=== PATIENT | female | born 1950 | race Caucasian/White ===

== ENCOUNTER → 2025-03-30 | Outpatient (CLI) | payer MEDICARE, OTHER, SELFPAY ==
--- NOTE | 2025-03-30 11:34 | MRI_ITS ---
PROCEDURE: SPINE LUMBAR (ROUTINE) 03/30/2025 REASON FOR EXAM: CHRONIC PAIN TECHNIQUE: SPINE LUMBAR (ROUTINE) COMPARISON: Lumbar spine x-ray 02/25/2025. FINDINGS: Vertebrae: Status post laminectomies and posterior fusion L1 L2, L3 and L4. S/p spacer placement at L3-L4. Alignment: Normal. Conus Medullaris: Unremarkable. Disc levels: Disc desiccation and disc bulge at T11-T12 and T12-L1 with mild bilateral foramina stenosis and mild canal stenosis.. Sacrum: Unremarkable. MRI/Spine Lumbar (Routine) IMPRESSION: Status post laminectomies and posterior fusion L1, L2, L3 and L4. S/p spacer p lacement at L3-L4. Mild canal stenosis at T11-T12 and T12-L1. Otherwise, no significant foraminal or canal stenosis. Reading Location: [id number]
--- NOTE | 2025-03-30 11:34 | MRI_ITS ---
PROCEDURE: SPINE LUMBAR (ROUTINE) 03/30/2025 REASON FOR EXAM: CHRONIC PAIN TECHNIQUE: SPINE LUMBAR (ROUTINE) COMPARISON: Lumbar spine x-ray 02/25/2025. FINDINGS: Vertebrae: Status post laminectomies and posterior fusion L1 L2, L3 and L4. S/p spacer placement at L3-L4. Alignment: Normal. Conus Medullaris: Unremarkable. Disc levels: Disc desiccation and disc bulge at T11-T12 and T12-L1 with mild bilateral foramina stenosis and mild canal stenosis.. Sacrum: Unremarkable. MRI/Spine Lumbar (Routine) IMPRESSION: Status post laminectomies and posterior fusion L1, L2, L3 and L4. S/p spacer p lacement at L3-L4. Mild canal stenosis at T11-T12 and T12-L1. Otherwise, no significant foraminal or canal stenosis. Reading Location: [id number]
--- OUTSIDE RECORDS SUMMARY | 2025-03-30 18:41 | XMS RPT_ITS | CCD ---
Author Organization [facility] Care Team Providers Care Neonatal Nurse Practitioner Name Role Phone JORI DEWITT Attending Unavailable RENATE JORI Trini Primary Care Unavailable RENATEJORI Admitting Unavailable RENATEJORI CHIRINOS Attending Unavailable RENATE JORI Trini Primary Care Unavailable RENATE JORI E Admitting Unavailable Unavailable Primary Care Provider Unavailgisel ANN DO, DR MARIN Primary Care Physician Julia Busby Unavailable Unavailable Katrin Barba Unavailable Unavailable Laura Claudio Unavailable Unavailable Luda Ann DO Primary Care Provider Luda Ann DO Primary Care Provider Luda Ann DO Primary Care Provider Marissa GALAN, Luda Jovel Primary Care Provider Marissa GALAN, Luda Jovel Primary Care Provider BETZAIDA GALAN, DR GARRISON Attending Unavailable MARISSA GALAN, DR MARIN Primary Care Unavailable BETZAIDA GALAN, DR GARRISON Attending Unavailable MARISSA GALAN, DR MARIN Primary Care Unavailable BETZAIDA GALAN, DR GARRISON Attending Unavailable MARISSA GALAN, DR MARIN Primary Care Unavailable EVERETT MCCULLOUGH MD Attending Unavailable MARISSA GALAN, DR MARIN Primary Care Unavailable MARISSA GALAN, DR MARIN Attending Unavailable MARISSA GALAN, DR MARIN Primary Care Unavailable MARISSA GALAN, DR MARIN Admitting Unavailable EVERETT MCCULLOUGH MD Attending Unavailable MARISSA GALAN, DR MARIN Primary Care Unavailable EVERETT MCCULLOUGH MD Attending Unavailable MARISSA GALAN, DR MARIN Primary Care Unavailable MARISSA GALAN, DR MARIN Primary Care Unavailable JUDY SALDANA, ANKITA Attending Unavailable PROVIDER, UNKNOWN Admitting Unavailable PROVIDER, UNKNOWN Attending Unavailable LUDA ANN Primary Care Unavailable SCOTT VALERO Referring Unavailable MARISSA, LUDA L Primary Care Unavailable MAYNOR ROBLES Attending Unavailable MARISSA, LUDA L Primary Care Unavailable VALERO, SCOTT Referring Unavailable MARISSA, LUDA L Primary Care Unavailable VALERO, SCOTT Referring Unavailable MARISSA, LUDA L Primary Care Unavailable VALERO, SCOTT Referring Unavailable MARISSA, LUDA L Primary Care Unavailable VALERO, SCOTT Referring Unavailable MARISSA, LUDA L Primary Care Unavailable VALERO, SCOTT Referring Unavailable MARISSA, LUDA L Primary Care Unavailable VALERO, SCOTT Referring Unavailable MARISSA, LUDA L Primary Care Unavailable VALERO, SCOTT Referring Unavailable MARISSA, LUDA L Primary Care Unavailable SURMITMAHAMED TRUJILLO Referring Unavail able MARISSA, LUDA L Primary Care Unavailable JITENDRAMITMAHAMED TRUJILLO Attending Unavail able MARISSA, LUDA L Primary Care Unavailable VALERO, SCOTT Referring Unavailable MARISSA, LUDA L Primary Care Unavailable VALERO, SCOTT Referring Unavailable MARISSA, LUDA L Primary Care Unavailable VALERO, SCOTT Referring Unavailable MARISSA, LUDA L Primary Care Unavailable VALERO, SCOTT Referring Unavailable MARISSA, LUDA L Primary Care Unavailable MAYA GOEL Attending Unavailable VALERO, SCOTT Referring Unavailable MARISSA, LUDA L Primary Care Unavailable VALERO, CSOTT Referring Unavailable MARISSA, LUDA L Primary Care Unavailable FATOUMATA LYN Referring Unavailable MARISSA, LUDA L Primary Care Unavailable SURMITMAHAMED TRUJILLO Referring Unavail able MARISSA, LUDA L Primary Care Unavailable VALERO, SCOTT Referring Unavailable MARISSA, LUDA L Primary Care Unavailable KARY CHASE Referring Unavailab le MARISSA, LUDA L Primary Care Unavailable VALERO, SCOTT Referring Unavailable MARISSA, LUDA L Primary Care Unavailable VALERO, SCOTT Referring Unavailable MARISSA, LUDA L Primary Care Unavailable Gian ELENA, Dr. Manzano Attending Provider [phone] Dr. Rodriguez Coleman MD Attending Provider Rodriguez Coleman Attending Unavailable Jose Juan Springer Attending Unavailable Marissa, Luda Primary Care Unavailable Jose Juan Springer Referring Unavailable Jose Juan Springer Attending Unavailable Medications Current Medications Medication Drug Class(es) Dates Sig (Normalized) Sig (Original) Pain Pump (Informational Use Only-Patient Has Morphine Pump) prefilled pump reservoir (2 sources) Start: 02-25-2025 Pain Pump (Informational Use Only-Patient Has Morphine Pump) prefilled pump reservoir Active 0 .ROUTE February 25, 2025 12:00am As directed acetaminophen 500 mg oral capsule (20 sources) take 2 capsules by mouth every twelve hours as needed Acetaminophen 500 mg cap Take 1,000 mg by mouth two times a day as needed. Active Comment on above: Take 1,000 mg by jesus th two times a day as needed. acetaminophen 300 mg / butalbital 50 mg / caffeine 40 mg oral capsule (2 sources) Barbiturate, Central Nervous System Stimulant, Methylxanthine Start: 09-07-2022 End: 09-14-2022 take 1 capsule by mouth every four hours as needed acetaminophen 300 mg-caffeine 40 mg-butalbital 50 mg (FIORICET) per capsule Take 1 capsule by mouth every 4 hours as needed for up to 7 days. 28 capsule 0 09/07/2022 09/14/2022 Active Comment on above: Take 1 capsule by mo [facility] every 4 hours as needed for up to 7 days. acetaminophen 325 mg / HYDROcodone bitartrate 7.5 mg oral tablet (2 sources) Opioid Agonist Start: 09-14-2021 take 1 tablet by mouth three times daily as needed for pain acetaminophen-hydr ocodone 325 mg-7.5 mg oral tablet TAKE 1 TABLET BY MOUTH THREE TIMES DAILY NEEDED FOR PAIN Start Date: 09/14/21 Status: Ordered ascorbic acid 500 mg oral capsule (20 sources) Vitamin C Start: 02-25-2025 Ascorbic Acid (Vitamin C) 500 mg capsule Active mg PO February 25, 2025 12:00am take 1 tablet by mouth once jayne y ascorbic acid, vitamin C, (VITAMIN C) 500 mg tablet Take 500 mg by mouth once daily. Active Comment on above: Take 500 mg by mouth once daily. aspirin 81 mg oral tablet (20 sources) Platelet Aggregation Inhibitor, Nonsteroidal Anti-inflammatory Drug Start: 02-25-2025 take 1 tablet by mouth once daily Aspirin 81 mg tablet Active 81 mg PO daily February 25, 2025 12:00am Start: 11-21-2015 take 1 tablet by jesus th once daily in the morning aspirin, enteric coated (ASPIRIN, ENTERIC COATED) 81 mg EC tablet Take 81 mg by mouth every morning. IS GOING TO CHECK WITH SURGEON AND PCP ABOUT WHEN NEEDS TO STOP ASA 11/21/2015 Active Comment on above: ASPIR-81 TABLET KAMRYN YED RELEASE Take 81 mg by mouth every morning. IS GOING TO CHECK WITH SURGEON AND PCP ABOUT WHEN NEEDS TO STOP ASA brimonidine tartrate 2 mg/ml ophthalmic solution (20 sources) alpha-Adrenergic Agonist Start: 02-25-2025 Brimonidine 0.2 % drops Active 1 NMA OPHTHALMIC TWICE A DAY February 25, 2025 12:00am Start: 02-14-2022 take 1 drop(s) into the eye(s) twice daily brimonidine (ALPHAGAN) 0.2 % ophthalmic solution Use 1 Drop in the left eye twice daily. GLAUCOMA 02/14/2022 Active Start: 02-14-2022 take 1 drop(s) into the eye(s) twice daily brimonidine (ALPHAGAN) 0.2 % ophthalmic solution Use 1 Drop in the left eye twice daily. GLAUCOMA 0 02/14/2022 Active Start: 02-14-2022 brimonidine (A LPHAGAN) 0.2 % ophthalmic solution Start: 09-14-2021 Alphagan 0.2% ophthalmic solution 0 Refill(s) Start Date: 09/14/21 Status: Ordered Start: 09-14-2021 Alphagan 0.2% ophthalmic solution 0 Refill(s) Start Date: 09/14/21 Status: Ordered Comment on above: Use 1 Drop in the le ft eye twice daily. GLAUCOMA calcium carbonate 1500 mg oral tablet (20 sources) calcium carbonat e (CALTRATE) 600 mg calcium (1,500 mg) tab Take by mouth every 24 hours. Active Comment on above: Take by mouth every 24 hours. cephalexin 500 mg oral capsule (2 sources) Cephalosporin Antibacterial Start: End: 023 take 1 capsule by mouth twice daily cephALEXin (KEFLEX) 500 mg capsule Take 1 capsule by mouth twice daily for 5 days. 10 capsule 0 09/28/2022 10/03/2022 Active Comment on above: Take 1 capsule by [facility] twice daily for 5 days. cholecalciferol 0.125 mg oral tablet (20 sources) Vitamin D cholecalciferol (VITAMIN D3) 5,000 unit tab Take 2,000 Units by mouth once daily. Last dose 09/26/22 Active Comment on above: Take 2,000 Units by mouth once daily. Take 2,000 Units by mouth once daily. Last dose 09/26/22 cyclobenzaprine hydrochloride 10 mg oral tablet (20 sources) Muscle Relaxant Start: 022 take 1 tablet by mouth every eight hours as needed cyclobenzaprine (FLEXERIL) 10 mg tablet Take 10 mg by mouth three times daily as needed for muscle spasm. 09/14/2021 Active Comment on above: mg = tab(s), Oral, TID, 0 Refill(s) Take 10 mg by mouth three times daily as needed for muscle spasm. dorzolamide 20 mg/ml / timolol 5 mg/ml ophthalmic solution (20 sources) Carbonic Anhydrase Inhibitor, beta-Adrenergic Karuna Start: 023 take 1 drop(s) into the eye(s) twice daily dorzolamide-timolol (COSOPT) 22.3-6.8 mg/mL ophthalmic solution INSTILL 1 DROP IN LEFT EYE TWICE DAILY 02/22/2023 Active Comment on above: INSTILL 1 DROP IN LE FT EYE TWICE DAILY DULoxetine 60 mg delayed release oral capsule (2 sources) Serotonin and Norepinephrine Reuptake Inhibitor Start: 025 take 1 capsule by mouth once daily Duloxetine 60 mg capsule,delayed release(DR/EC) Active 60 mg PO daily February 25, 2025 12:00am famotidine 20 mg oral tablet (20 sources) Histamine-2 Receptor Antagonist Start: 025 take 2 tablets by mouth at bedtime Famotidine 20 mg tablet Active 40 mg PO AT BEDTIME February 25, 2025 12:00am Start: 05-14-2023 take 1 tablet by jesus once daily at bedtime famotidine (PEPCID) 20 mg tablet Take 20 mg by mouth daily at bedtime. 05/14/2023 Active Comment on above: Take 20 mg by mouth daily at bedtime. ferrous sulfate 325 mg oral tablet (20 sources) Start: 02-25-2025 take 1 tablet by mouth once daily Ferrous Sulfate (Ferosul) 325 mg (65 mg iron) tablet Active 325 mg PO daily February 25, 2025 12:00am ferrous sulfate (IRON) 325 mg (65 mg iron) tablet Take 325 mg by mouth. Active Comment on above: Take 325 mg by mouth . folic acid 1 mg oral tablet (20 sources) Start: 02-25-2025 take 1 tablet by mouth once daily Folic Acid 1 mg tablet Active 1 mg PO daily February 25, 2025 12:00am Start: 11-21-2015 take 1 tablet by jesus th once daily in the morning folic acid 800 mcg tablet Take 800 mcg by mouth every morning. FROM PCP BLOOD NOT CLOT NORMAL PERSON 11/21/2015 Active Comment on above: folic acid 800 mcg t ablet Take 800 mcg by mout h every morning. FROM PCP BLOOD NOT CLOT NORMAL PERSON gabapentin 800 mg oral tablet (20 sources) Anti-epileptic Agent Start: 02-25-2025 take 1 tablet by mouth three times daily Gabapentin 800 mg tablet Active 800 mg PO THREE TIMES A DAY February 25, 2025 12:00am Start: 10-29-2023 End: 02-26-2024 take 1 tablet by mouth three times daily gabapentin (NEURONTIN) 800 mg tablet Indications: Lumbar radiculopathy Take 1 tablet by mouth three times a day for 120 days. 90 tablet 3 10/29/2023 Active Start: 11-21-2015 End: 10-06-2023 gabapentin (NEURONTIN) 300 m g capsule Indications: Lumbar postlaminectomy syndrome Take 1 capsule by mouth as directed for 20 days. Follow titration schedule received and reviewed at office visit. Please call our office for further refills pending outcome of titration 120 capsule 0 09/16/2023 Active Comment on above: TAKE 1 CAPSULE BY MOUTH THREE TIMES DAILY Take 1 capsule by mo [facility] as directed for 20 days. Follow titration schedule received and reviewed at office visit. Please call our office for further refills pending outcome of titration Take 1 tablet by jesus th three times a day for 120 days. hydroCHLOROthiazide 25 mg / lisinopril 20 mg oral tablet (20 sources) Thiazide Diuretic, Angiotensin Converting Enzyme Inhibitor Start: 02-25-2025 Lisinopril-Hydroc hlorothiazide 20-25 mg tablet Active 1 {tbl} PO daily February 25, 2025 12:00am Start: 09-14-2021 take 1 tablet by jesus th once daily in the morning lisinopril-hydroCHLOROthiazide (PRINZIDE , ZESTORETIC) 20-25 mg per tablet Take 1 tablet by mouth every morning. 02/13/2022 Active Comment on above: Take 1 tablet by jesus th once daily. Take 1 tablet by jesus th every morning. Lactobac no.41/Bifidobact no.7 (PROBIOTIC-10 ORAL) (20 sources) take 1 tablet by mouth once daily in the morning Lactobac no.41/Bifidobact no.7 (PROBIOTIC-10 ORAL) Take 1 tablet by mouth every morning. Active take 1 tablet by jesus th once daily in the morning Lactobac no.41/Bifidobact no.7 (PROBIOTI C-10 ORAL) Take 1 tablet by mouth every morning. 0 Active Comment on above: Take 1 tablet by jesus th every morning. latanoprost 0.05 mg/ml ophthalmic solution (20 sources) Prostaglandin Analog Start: 02-25-2025 Latanoprost 0.005 % drops Active 1 NMA OPHTHALMIC EVERY EVENING February 25, 2025 12:00am Start: 02-14-2022 take 1 drop(s) into the eye(s) once daily at bedtime latanoprost (XALATAN) 0.005 % ophthalmic solution Use 1 Drop in both eyes daily at bedtime. 02/14/2022 Active Start: 02-14-2022 take 1 drop(s) into the eye(s) once daily at bedtime latanoprost (XALATAN) 0.005 % ophthalmic solution Use 1 Drop in both eyes daily at bedtime. 0 02/14/2022 Active Start: 02-14-2022 take 1 drop(s) into the eye(s) at bedtime latanoprost (XALATAN) 0.005 % ophthalmic solution INSTILL 1 DROP IN BOTH EYES AT BEDTIME 0 02/14/2022 Active Comment on above: INSTILL 1 DROP IN JEANNIE TH EYES AT BEDTIME Use 1 Drop in both e yes daily at bedtime. lidocaine 25 mg/ml / prilocaine 25 mg/ml topical cream (20 sources) Antiarrhythmic, Amide Local Anesthetic Start: 02-25-2025 Lidocaine-Prilocaine 2.5-2.5 % cream Active 1 - 2 TOPICAL THREE TIMES A DAY as needed February 25, 2025 12:00am Start: 06-27-2023 End: 07-27-2023 lidocaine-prilocaine (EMLA) 2.5-2.5 % cream Apply to affected area as needed. 1-2 grams to affected area TID PRN 30 g 3 06/27/2023 Active Start: 06-13-2022 End: 07-13-2022 lidocaine-prilocaine (EMLA) 2.5-2.5 % cream Apply to affected area as needed. 1-2 grams to affected area TID PRN 30 g 1 06/13/2022 Active Start: 09-14-2021 lidocaine-pril ocaine 2.5%-2.5% topical cream APPLY 1 TO 2 GRAMS TO AFFECTED AREA THREE TIMES DAILY NEEDED FOR PAIN Start Date: 09/14/21 Status: Ordered Start: 09-14-2021 lidocaine-pril ocaine 2.5%-2.5% topical cream APPLY 1 TO 2 GRAMS TO AFFECTED AREA THREE TIMES DAILY NEEDED FOR PAIN Start Date: 09/14/21 Status: Ordered Comment on above: Apply to affected ar ea as needed. 1-2 grams to affected area TID PRN morphine (PF) 5 mg/mL in NaCl 0.9% 20 mL (20 sources) Start: 01-22-2024 morphine (PF) 5 mg/mL in NaCl 0.9% 20 mL Indications: Lumbar postlaminectomy syndrome PF MORPHINE 5 MG/ML SIMPLE CONTINUOUS RATE 0.8636 mg/ day PTM 0.0799 mg every 4 hours (max 6 doses per day) Total daily dose 1.3397mg 20 mL 01/22/2024 Active Start: 01-22-2024 morphine (PF) 5 mg/mL in NaCl 0.9% 20 mL Indications: Lumbar postlaminectomy syndrome PF MORPHINE 5 MG/ML SIMPLE CONTINUOUS RATE 0.8636 mg/ day PTM 0.0799 mg every 4 hours (max 6 doses per day) Total daily dose 1.3397mg 20 mL 0 01/22/2024 Active Start: 11-25-2023 End: 01-22-2024 morphine (PF) 5 mg/mL in NaC l 0.9% 20 mL Indications: Lumbar postlaminectomy syndrome PF MORPHINE 5 MG/ML SIMPLE CONTINUOUS RATE 0.8636 mg/ day PTM 0.0799 mg every 4 hours (max 6 doses per day) Total daily dose 1.3397mg 20 mL 0 11/25/2023 01/22/2024 Discontinued Start: 11-25-2023 morphine (PF) 5 mg/mL in NaCl 0.9% 20 mL Indications: Lumbar postlaminectomy syndrome PF MORPHINE 5 MG/ML SIMPLE CONTINUOUS RATE 0.8636 mg/ day PTM 0.0799 mg every 4 hours (max 6 doses per day) Total daily dose 1.3397mg 20 mL 0 11/25/2023 Active Start: 11-19-2023 End: 11-25-2023 morphine (PF) 5 mg/mL in NaC l 0.9% 20 mL Indications: Lumbar postlaminectomy syndrome PF MORPHINE 5 MG/ML SIMPLE CONTINUOUS RATE 0.8636 mg/ day PTM 0.0799 mg every 4 hours (max 6 doses per day) Total daily dose 1.3397mg 20 mL 0 11/19/2023 11/25/2023 Discontinued Start: 11-19-2023 morphine (PF) 5 mg/mL in NaCl 0.9% 20 mL Indications: Lumbar postlaminectomy syndrome PF MORPHINE 5 MG/ML SIMPLE CONTINUOUS RATE 0.8636 mg/ day PTM 0.0799 mg every 4 hours (max 6 doses per day) Total daily dose 1.3397mg 20 mL 0 11/19/2023 Active Start: 09-26-2023 End: 11-19-2023 morphine (PF) 5 mg/mL in NaC l 0.9% 20 mL Indications: Lumbar postlaminectomy syndrome PF MORPHINE 5 MG/ML SIMPLE CONTINUOUS RATE 0.8636 mg/ day PTM 0.0799 mg every 4 hours (max 6 doses per day) Total daily dose 1.3397mg 20 mL 0 09/26/2023 11/19/2023 Discontinued Start: 09-26-2023 morphine (PF) 5 mg/mL in NaCl 0.9% 20 mL Indications: Lumbar postlaminectomy syndrome PF MORPHINE 5 MG/ML SIMPLE CONTINUOUS RATE 0.8636 mg/ day PTM 0.0799 mg every 4 hours (max 6 doses per day) Total daily dose 1.3397mg 20 mL 0 09/26/2023 Active Start: 07-23-2023 End: 09-26-2023 morphine (PF) 5 mg/mL in NaC l 0.9% 20 mL Indications: Lumbar postlaminectomy syndrome PF MORPHINE 5 MG/ML SIMPLE CONTINUOUS RATE 0.864 mg/ day PTM 0.0799 mg every 4 hours (max 6 doses per day) Total daily dose 1.3397mg 20 mL 0 07/23/2023 09/26/2023 Discontinued Start: 05-30-2023 morphine (PF) 5 mg/mL in NaCl 0.9% 20 mL Indications: Lumbar postlaminectomy syndrome PF MORPHINE 5 MG/ML SIMPLE CONTINUOUS RATE 0.864 mg/ day PTM 0.0799 mg every 4 hours (max 6 doses per day) Total daily dose 1.3397mg 20 mL 0 05/30/2023 Active Start: 03-27-2023 morphine (PF) 5 mg/mL in NaCl 0.9% 20 mL Indications: Lumbar postlaminectomy syndrome PF MORPHINE 5 MG/ML SIMPLE CONTINUOUS RATE 0.864 mg/ day PTM 0.0799 mg every 4 hours (max 6 doses per day) Total daily dose 1.3397mg 20 mL 0 03/27/2023 Active Start: 01-28-2023 End: 03-26-2023 morphine (PF) 5 mg/mL in NaC l 0.9% 20 mL Indications: Lumbar postlaminectomy syndrome PF MORPHINE 5 MG/ML SIMPLE CONTINUOUS RATE 0.864 mg/ day PTM 0.0799 mg every 4 hours (max 6 doses per day) Total daily dose 1.3397mg 20 mL 0 01/28/2023 03/26/2023 Discontinued Start: 01-28-2023 morphine (PF) 5 mg/mL in NaCl 0.9% 20 mL Indications: Lumbar postlaminectomy syndrome PF MORPHINE 5 MG/ML SIMPLE CONTINUOUS RATE 0.864 mg/ day PTM 0.0799 mg every 4 hours (max 6 doses per day) Total daily dose 1.3397mg 20 mL 0 01/28/2023 Active Start: 12-04-2022 End: 01-23-2023 morphine (PF) 5 mg/mL in NaC l 0.9% 20 mL Indications: Lumbar postlaminectomy syndrome PF MORPHINE 5 MG/ML ( INCREASE DOSE) SIMPLE CONTINUOUS RATE 0.864 mg/ day PTM 0.07 mg every 4 hours (max 6 doses per day) Total daily dose 1.284mg 20 mL 0 12/04/2022 01/23/2023 Discontinued Start: 12-04-2022 morphine (PF) 5 mg/mL in NaCl 0.9% 20 mL Indications: Lumbar postlaminectomy syndrome PF MORPHINE 5 MG/ML ( INCREASE DOSE) SIMPLE CONTINUOUS RATE 0.864 mg/ day PTM 0.07 mg every 4 hours (max 6 doses per day) Total daily dose 1.284mg 20 mL 0 12/04/2022 Active Start: 11-21-2022 End: 12-04-2022 morphine (PF) 5 mg/mL in NaC l 0.9% 20 mL Indications: Lumbar postlaminectomy syndrome PF MORPHINE 5 MG/ML SIMPLE CONTINUOUS RATE 0.7201 mg/ day Activate PTM 0.05 mg every 4 hours (max 6 doses per day) Total daily dose 1.0169mg 20 mL 0 11/21/2022 12/04/2022 Discontinued Start: 11-21-2022 morphine (PF) 5 mg/mL in NaCl 0.9% 20 mL Indications: Lumbar postlaminectomy syndrome PF MORPHINE 5 MG/ML SIMPLE CONTINUOUS RATE 0.7201 mg/ day Activate PTM 0.05 mg every 4 hours (max 6 doses per day) Total daily dose 1.0169mg 20 mL 0 11/21/2022 Active Start: 10-10-2022 End: 11-20-2022 morphine (PF) 5 mg/mL in NaC l 0.9% 20 mL Indications: Lumbar postlaminectomy syndrome PF MORPHINE 5 MG/ML SIMPLE CONTINUOUS RATE 0.03 MG/HOUR Activate PTM 0.05 mg every 4 hours (max 6 doses per day) Patient to establish care with [facility] 20 mL 0 10/10/2022 11/20/2022 Discontinued Start: 10-10-2022 morphine (PF) 5 mg/mL in NaCl 0.9% 20 mL Indications: Lumbar postlaminectomy syndrome PF MORPHINE 5 MG/ML SIMPLE CONTINUOUS RATE 0.03 MG/HOUR Activate PTM 0.05 mg every 4 hours (max 6 doses per day) Patient to establish care with [facility] 20 mL 0 10/10/2022 Active Start: 09-25-2022 End: 10-10-2022 morphine (PF) 5 mg/mL in NaC l 0.9% 20 mL Indications: Lumbar postlaminectomy syndrome PF MORPHINE 5 MG/ML SIMPLE CONTINUOUS RATE 0.03 MG/HOUR AugmedixMED II MEDTRONIC INTRATHECAL PUMP WITH PERSONAL FIRST SAMPLER 20 mL 0 09/25/2022 10/10/2022 Discontinued Start: 09-25-2022 morphine (PF) 5 mg/mL in NaCl 0.9% 20 mL Indications: Lumbar postlaminectomy syndrome PF MORPHINE 5 MG/ML SIMPLE CONTINUOUS RATE 0.03 MG/HOUR SYNCHROMED II MEDTRONIC INTRATHECAL PUMP WITH PERSONAL FIRST SAMPLER 20 mL 0 09/25/2022 Active Comment on above: PF MORPHINE 5 MG/ML SIMPLE CONTINUOUS RATE 0.03 MG/HOUR SYNCHROMED II MEDTRONIC INTRATHECAL PUMP WITH PERSONAL FIRST SAMPLER PF MORPHINE 5 MG/ML SIMPLE CONTINUOUS RATE 0.03 MG/HOUR Activate PTM 0.05 mg every 4 hours (max 6 doses per day) Patient to establish care with [facility] nursing services PF MORPHINE 5 MG/ML SIMPLE CONTINUOUS RATE 0.7201 mg/ day Activate PTM 0.05 mg every 4 hours (max 6 doses per day) Total daily dose 1.0169mg PF MORPHINE 5 MG/ML ( INCREASE DOSE) SIMPLE CONTINUOUS RATE 0.864 mg/ day PTM 0.07 mg every 4 hours (max 6 doses per day) Total daily dose 1.284mg PF MORPHINE 5 MG/ML SIMPLE CONTINUOUS RATE 0.864 mg/ day PTM 0.0799 mg every 4 hours (max 6 doses per day) Total daily dose 1.3397mg PF MORPHINE 5 MG/ML SIMPLE CONTINUOUS RATE 0.8636 mg/ day PTM 0.0799 mg every 4 hours (max 6 doses per day) Total daily dose 1.3397mg multivit with minerals/lutein (MULTIVITAMIN 50 PLUS ORAL) (20 sources) Start: 11-21-2015 multivit with minerals/lutein (MULTIVITAMIN 50 PLUS ORAL) Last dose 09/26/22 11/21/2015 Active Start: 11-21-2015 multivit with minerals/lutein (MULTIVITAMIN 50 PLUS ORAL) Last dose 09/26/22 0 11/21/2015 Active Start: 11-21-2015 multivit with minerals/lutein (MULTIVITAMIN 50 PLUS ORAL) SENIOR MULTIVITAMIN PLUS ORAL TABLET 0 11/21/2015 Suspended Start: 11-21-2015 multivit with minerals/lutein (MULTIVITAMIN 50 PLUS ORAL) SENIOR MULTIVITAMIN PLUS ORAL TABLET 0 11/21/2015 Active Comment on above: SENIOR MULTIVITAMIN PLUS ORAL TABLET Last dose 09/26/22 nystatin 100 unt/mg topical powder (10 sources) Polyene Antifungal Start: 02-25-2025 Nystatin (Nystop) 100,000 unit/gram powder Active TOPICAL As Directed February 25, 2025 12:00am Start: 05-13-2024 NYSTOP powder APPLY TOPICALLY TO THE AFFECTED AREA DIRECTED 05/13/2024 Active nystatin 477145 unt/ml / triamcinolone acetonide 1 mg/ml topical cream (12 sources) Polyene Antifungal, Corticosteroid Start: 04-24-2024 nystatin-triamcinolone (MYCOLOG II) cream APPLY TOPICALLY TO THE AFFECTED AREA 2 TO 3 TIMES DAILY NEEDED 04/24/2024 Active Start: 10-16-2022 nystatin-triam cinolone (MYCOLOG II) cream apply 1 gram to the affected areas NEEDED TWICE DAILY 0 10/16/2022 Active Comment on above: apply 1 gram to the affected areas NEEDED TWICE DAILY omeprazole 40 mg delayed release oral capsule (20 sources) Proton Pump Inhibitor Start: 02-25-2025 take 1 capsule by mouth once daily Omeprazole 40 mg capsule,delayed release(DR/EC) Active 40 mg PO daily February 25, 2025 12:00am Start: 06-07-2023 take 1 capsule by [facility] once daily before mealtime omeprazole (PRILOSEC) 40 mg capsule take 1 capsule by mouth every day before a meal 06/07/2023 Active Start: 09-14-2021 take 1 capsule by [facility] once daily in the morning omeprazole (PRILOSEC) 20 mg capsule Take 20 mg by mouth every morning. 0 02/01/2022 Active Comment on above: Take 20 mg by mouth every morning. take 1 capsule by [facility] every day before a meal simvastatin 20 mg oral tablet (20 sources) HMG-CoA Reductase Inhibitor Start: 02-25-2025 take 1 tablet by mouth once daily Simvastatin 20 mg tablet Active 20 mg PO daily February 25, 2025 12:00am Start: 09-14-2021 take 1 tablet by [facility] once daily at bedtime simvastatin (ZOCOR) 20 mg tablet Take 20 mg by mouth daily at bedtime. 09/14/2021 Active Comment on above: TAKE 1 TABLET BY MOUTH EVERY DAY Take 20 mg by mouth daily at bedtime. tiZANidine 4 mg oral tablet (20 sources) Central alpha-2 Adrenergic Agonist Start: 4 End: 4 take 1 tablet by mouth every eight hours as needed tiZANidine (ZANAFLEX) 4 mg tablet Take 1 tablet by mouth three times a day as needed. 90 tablet 3 09/16/2023 01/14/2024 Active Comment on above: Take 1 tablet by [facility] three times a day as needed. 24 hr tolterodine tartrate 4 mg extended release oral capsule (20 sources) Cholinergic Muscarinic Antagonist Start: take 1 capsule by mouth once daily Tolterodine 4 mg capsule,extended release 24hr Active 4 mg PO daily February 25, 2025 12:00am Start: 09-14-2021 take 1 capsule by [facility] once daily tolterodine 4 mg oral capsule, extended release TAKE ONE CAPSULE BY MOUTH EVERY DAY Start Date: 09/14/21 Status: Ordered Start: 11-21-2015 End: 09-19-2022 tolterodine (DETROL) 1 mg ta blet Detrol 1 mg tablet 0 11/21/2015 09/19/2022 Discontinued (Discontinued by another Health Care Provider) take 1 capsule by [facility] every twenty-four hours tolterodine ER (DETROL LA) 4 mg 24 hr capsule Take 1 capsule by mouth q 24 HR. 0 Active Comment on above: Detrol 1 mg tablet Take 1 capsule by [facility] q 24 HR. Take 4 mg by mouth e very morning. Zinc (20 sources) Zinc 50 mg tab a s needed. Active Zinc 50 mg tab a s needed. 0 Active take 1 tablet by mouth once jayne y Zinc 50 mg tab take 1 Tablet by Oral route every day 0 Active Comment on above: take 1 Tablet by Ora l route every day as needed. Completed/Discontinued Medications Medication Drug Class(es) Dates Sig (Normalized) Sig (Original) acetaminophen 325 mg / oxyCODONE hydrochloride 7.5 mg oral tablet (20 sources) Opioid Agonist Start: 02-04-2023 End: 03-06-2023 take 1 tablet by mouth once daily as needed for pain oxyCODONE-acetaminoph en (PERCOCET) 7.5-325 mg tablet Indications: Lumbar postlaminectomy syndrome , Acute arthropathy , Lumbar radiculopathy , DDD (degenerative disc disease), lumbar , Intervertebral disc disorder with radiculopathy of lumbar region , Radiculitis, thoracic Take 1 tablet by mouth once daily as needed for pain for up to 30 days. 15 tablet 0 02/04/2023 Active Start: 12-12-2022 End: 01-11-2023 take 1 tablet by mouth once daily as needed for pain oxyCODONE-acetaminophen (PERCOCET) 7.5-3 25 mg tablet Indications: Lumbar postlaminectomy syndrome , Acute arthropathy , Lumbar radiculopathy , DDD (degenerative disc disease), lumbar , Intervertebral disc disorder with radiculopathy of lumbar region , Radiculitis, thoracic Take 1 tablet by mouth once daily as needed for pain for up to 30 days. 30 tablet 0 12/12/2022 Active Start: 05-04-2022 End: 11-29-2022 take 1 tablet by mouth three times daily as needed for pain oxyCODONE-acetaminophen (PERCOCET) 7.5-3 25 mg tablet Indications: Lumbar postlaminectomy syndrome , Lumbar radiculopathy , DDD (degenerative disc disease), lumbar , Intervertebral disc disorder with radiculopathy of lumbar region , Acute arthropathy , Radiculitis, thoracic Take 1 tablet by mouth three times daily as needed for pain for up to 30 days. 90 tablet 0 10/30/2022 Active Start: 01-24-2022 End: 05-02-2022 take 1 tablet by mouth three times daily as needed oxyCODONE-acetaminophen (PERCOCET) 7.5-3 25 mg tablet Indications: Chronic pain syndrome Take 1 tablet by mouth three times daily as needed for up to 30 days. Do not start before March 25, 2022. 90 tablet 0 03/25/2022 05/02/2022 Discontinued Comment on above: Take 1 tablet by jesus th three times daily as needed. Take 1 tablet by jesus th three times daily as needed for up to 30 days. Take 1 tablet by jesus th three times daily as needed for up to 30 days. Do not start before March 25, 2022. Take 1 tablet by jesus th three times daily as needed for up to 30 days. Do not start before July 12, 2022. Take 1 tablet by jesus th three times daily as needed for up to 30 days. Do not start before August 11, 2022. Take 1 tablet by jesus th three times daily as needed for pain for up to 30 days. Do not start before September 10, 2022. Take 1 tablet by jesus three times daily as needed for pain for up to 30 days. Do not start before October 11, 2022. Take 1 tablet by jesus th three times daily as needed for pain for up to 30 days. Take 1 tablet by jesus th once daily as needed for pain for up to 30 days. amoxicillin 500 mg oral capsule (9 sources) Penicillin-class Antibacterial Start: 07-11-2022 End: 10-02-2022 amoxicillin (POLYMOX, AMOXIL) 500 mg capsule TAKE 4 CAPSULES BY MOUTH 1 HOUR BEFORE DENTAL PROCEDURE DIRECTED 0 07/11/2022 10/02/2022 Discontinued Comment on above: TAKE 4 CAPSULES BY OUT 1 HOUR BEFORE DENTAL PROCEDURE DIRECTED B[employer] COVID-19 AG SELF TEST kit (2 sources) Start: 03-19-2022 End: 04-16-2022 BINAXNOW COVID-19 AG SELF TEST kit TEST DIRECTED TODAY 0 03/19/2022 04/16/2022 Discontinued Start: 03-19-2022 BINAXNOW COVID -19 AG SELF TEST kit TEST DIRECTED TODAY 0 03/19/2022 Active Comment on above: TEST DIRECTED TOChandan ZAPATA Calcium (3 sources) Phosphate Binder, Calcium Start: 11-21-2015 End: 03-13-2022 [id number]-jenanie jeanne (CALTRATE 600-D PLUS MINERALS) 600 mg calcium- 800 unit-40 mg chew CALTRATE 600+D CHEW 0 11/21/2015 03/13/2022 Discontinued (Discontinued by Patient) Start: 11-21-2015 [id number] -[id number] (CALTRATE 600-D PLUS MINERALS) 600 mg calcium- 800 unit-40 mg chew CALTRATE 600+D CHEW 0 11/21/2015 Active Comment on above: CALTRATE 600+D CHEW capsaicin 0.36536 mg/mg / lidocaine hydrochloride 0.005 mg/mg / menthol 0.05 mg/mg / methyl salicylate 0.2 mg/mg medicated patch (20 sources) Antiarrhythmic, Amide Local Anesthetic Start: 0 End: 3 lidocain-me.salicyl-c aps-menth 0.5-20-0.035-5 % ptmd EMLA CREAM PRILOCAINE 2%/LIDOCAINE 2% 7 Patch 1 06/12/2022 09/19/2022 Discontinued (Discontinued by another Health Care Provider) Comment on above: EMLA CREAM PRILOCAIN E 2%/LIDOCAINE 2% dorzolamide 20 mg/ml ophthalmic solution (20 sources) Carbonic Anhydrase Inhibitor Start: 2 End: 3 take 1 drop(s) into the eye(s) twice daily dorzolamide (TRUSOPT) 2 % ophthalmic solution Use 1 Drop in the left eye twice daily. 0 02/14/2022 04/15/2023 Discontinued Start: 02-14-2022 take 1 drop(s) into the eye(s) twice daily dorzolamide (TRUSOPT) 2 % ophthalmic solution Use 1 Drop in the left eye twice daily. 0 02/14/2022 Active take 1 drop(s) into the eye(s) every eight hours dorzolamide (TRUSOPT) 2 % ophthalmic solution Use 1 Drop in eyes q 8 HR. 0 Active Comment on above: Use 1 Drop in both e yes twice daily. Use 1 Drop in the le ft eye twice daily. Use 1 Drop in eyes q 8 HR. ammonium lactate 120 mg/ml topical cream (20 sources) Start: 03-29-2022 End: 10-02-2022 ammonium lactate (LAC-HYDRIN) 12 % cream Apply 1 Applicator to affected area as needed. 0 03/29/2022 10/02/2022 Discontinued Start: 03-29-2022 ammonium lacta te (LAC-HYDRIN) 12 % cream APPLY TO LEGS DAILY DIRECTED 0 03/29/2022 Active Comment on above: APPLY TO LEGS DAILY DIRECTED Apply 1 Applicator t o affected area as needed. loratadine 10 mg oral tablet (10 sources) Start: 3 End: 3 take 1 tablet by mouth once daily as needed loratadine (CLARITIN) 10 mg tablet Take 10 mg by mouth once daily as needed. 0 11/09/2022 07/09/2023 Discontinued (Other) Comment on above: Take 10 mg by mouth once daily as needed. meloxicam 15 mg oral tablet (20 sources) Nonsteroidal Anti-inflammatory Drug Start: 2 take 7.5 mg by mouth twice daily meloxicam (MOBIC) 15 mg tablet Take 7.5 mg by mouth twice daily. 0 11/06/2021 Active Start: 09-14-2021 take 1 tablet by jesus th once daily meloxicam (MOBIC) 15 mg tablet Take 15 mg by mouth once daily. 0 11/06/2021 Active Comment on above: Take 15 mg by mouth once daily. Take 7.5 mg by mouth twice daily. nitrofurantoin, macrocrystals 25 mg / nitrofurantoin, monohydrate 75 mg oral capsule (10 sources) Nitrofuran Antibacterial Start: 11-20-19 End: 02-14-20 take 1 capsule by mouth twice daily nitrofurantoin monohydrate and macrocrystal (MACROBID) 100 mg capsule Take 100 mg by mouth twice daily. 0 11/19/2022 02/13/2023 Discontinued (Course of therapy completed) Start: 07-28-2022 End: 10-29-2022 take 1 capsule by mouth every twelve hours at mealtime nitrofurantoin monohydrate and macrocrystal (MACROBID) 100 mg capsule TAKE 1 CAPSULE BY MOUTH EVERY 12 HOURS WITH FOOD 0 07/28/2022 10/29/2022 Discontinued Comment on above: TAKE 1 CAPSULE BY [facility] EVERY 12 HOURS WITH FOOD Take 100 mg by mouth twice daily. ondansetron 4 mg oral tablet (11 sources) Serotonin-3 Receptor Antagonist Start: 3 End: 3 take 1 tablet by mouth every eight hours as needed ondansetron (ZOFRAN) 4 mg tablet Take 1 tablet by mouth every 8 hours as needed for nausea/vomiting. 10 tablet 0 09/07/2022 10/29/2022 Discontinued Comment on above: Take 1 tablet by jesus th every 8 hours as needed for nausea/vomiting. pantoprazole 40 mg delayed release oral tablet (3 sources) Proton Pump Inhibitor Start: 3 End: 3 take 1 tablet by mouth once pantoprazole DR (PROTONIX) 40 mg tablet Take 1 tablet by mouth every afternoon. 0 02/12/2023 07/09/2023 Discontinued (Other) Comment on above: Take 1 tablet by jesus every afternoon. regadenoson 0.4 mg injection (LEXISCAN) (2 sources) Start: End: regadenoson 0.4 mg injection (LEXISCAN) Start: 08-20-2024 End: 08-20-2024 0.4 mg, INTRAVENOUS, DIRE CTED NEEDED, 1 dose, Starting on Brittanie 08/20/24 at 1044, Until Brittanie 08/20/24 at 1044, Per-Protocol - for use during STRESS TEST procedure only, Give 0.4 mg (5 mL) over ~10 seconds, followed immediately by a 5 mL saline flush. Wait 10-20 seconds, then administer the radionuclide myocardial perfusion imaging agent., Cardiac Procedure Med Orders 12 hr timolol 5 mg/ml ophthalmic solution (20 sources) beta-Adrenergic Karuna Start: 02-15-2022 timolo l maleate (TIMOPTIC) 0.5 % ophthalmic solution Use 1 Drop in the left eye twice daily. 0 02/15/2022 Active Start: 02-15-2022 timolol maleat e (TIMOPTIC) 0.5 % ophthalmic solution Use 1 Drop in the left eye twice daily. 0 02/15/2022 Active Start: 09-14-2021 End: 09-19-2022 timolol hemihydrate (BETIMOL ) 0.25 % ophthalmic solution Use in eyes. 0 09/14/2021 09/19/2022 Discontinued (Discontinued by another Health Care Provider) Start: 09-14-2021 Timolol Maleat e (Eqv-Timoptic) 0.5% ophthalmic solution 0 Refill(s) Start Date: 09/14/21 Status: Ordered Comment on above: Use in eyes. Use 1 Drop in both e yes twice daily. Use 1 Drop in the le ft eye twice daily. Problems Active Problems Problem Classification Problem Date Documented Date Episodic/Chronic Coronary atherosclerosis and other heart disease (4 sources) Calcification of coronary artery; Translations: [Atherosclerotic heart disease of [place] coronary artery without angina pectoris] Onset: 08-20-2024 06-25-2024 Chronic Disorders of lipid metabolism (20 sources) Hyperlipidemia; Translations: [Hyperlipidemia, unspecified] Onset: 08-30-2015 09-12-2021 Chronic Esophageal disorders (20 sources) Gastroesophageal reflux disease; Translations: [Gastro-esophageal reflux disease without esophagitis] Onset: 08-30-2015 09-12-2021 Chronic Essential hypertension (12 sources) Hypertensive disorder; Translations: [Essential hypertension] Onset: 02-01-2014 09-12-2021 Chronic Glaucoma (20 sources) Glaucoma; Translations: [Unspecified glaucoma] Onset: 10-02-2022 09-14-2021 Chronic Nonspecific chest pain (2 sources) Chest discomfort; Translations: [Other chest pain] Onset: 09-21-2024 09-01-2024 Episodic Nutritional deficiencies (8 sources) Vitamin D deficiency; Translations: [Vitamin D deficiency, unspecified] Onset: 02-01-2014 06-23-2024 Chronic Osteoarthritis (20 sources) Arthritis; Translations: [Degenerative joint disease involving multiple joints] Onset: 08-23-2015 09-12-2021 Chronic Other acquired deformities (1 source) Other secondary kyphosis, thoracolumbar region; Translations: [Other secondary kyphosis, thoracolumbar region] Onset: 03-12-2025 Chronic Other acquired deformities (1 source) Other secondary scoliosis, thoracolumbar region; Translations: [Other secondary scoliosis, thoracolumbar region] Onset: 03-12-2025 Chronic Other acquired deformities (2 sources) Spondylolisthesis, lumbar region; Translations: [Spondylolisthesis, lumbar region] Onset: 03-12-2025 Episodic Other bone disease and musculoskeletal deformities (1 source) Other specified disorders of bone density and structure, unspecified site; Translations: [Other specified disorders of bone density and structure, unspecified site] Onset: 03-12-2025 Episodic Other connective tissue disease (20 sources) History of total replacement of left hip joint; Translations: [Presence of left artificial hip joint] Onset: 08-23-2015 10-02-2022 Chronic Other connective tissue disease (20 sources) Artificial knee joint present; Translations: [Presence of left artificial knee joint] Onset: 10-02-2023 Resolved: 12-23-2023 10-02-2023 Chronic Other connective tissue disease (1 source) Presence of left artificial knee joint; Translations: [Presence of left artificial knee joint] Onset: 12-23-2023 Chronic Other connective tissue disease (20 sources) Muscle pain; Translations: [Myalgia, unspecified site] Onset: 03-11-2022 Episodic Other connective tissue disease (2 sources) Arthrodesis status; Translations: [Arthrodesis status] Onset: 03-12-2025 Episodic Other lower respiratory disease (4 sources) Dyspnea on exertion; Translations: [Other forms of dyspnea] Episodic Other lower respiratory disease (2 sources) Dyspnea; Translations: [Dyspnea, unspecified] 06-25-2024 Episodic Other lower respiratory disease (1 source) Dyspnea, unspecified; Translations: [Dyspnea, unspecified type] Onset: 08-20-2024 Episodic Other nervous system disorders (20 sources) Chronic pain syndrome; Translations: [Chronic pain syndrome] Onset: 02-15-2017 Chronic Other nervous system disorders (20 sources) Chronic pain; Translations: [Other chronic pain] Onset: 08-23-2015 08-16-2022 Chronic Other nervous system disorders (20 sources) Bilateral carpal tunnel syndrome; Translations: [Carpal tunnel syndrome, bilateral upper limbs] Onset: 07-31-2023 07-31-2023 Chronic Other nervous system disorders (1 source) Carpal tunnel syndrome, bilateral upper limbs; Translations: [Carpal tunnel syndrome, bilateral] Onset: 07-31-2023 Chronic Other nervous system disorders (1 source) Other chronic pain; Translations: [Other chronic pain] Onset: 03-12-2025 Chronic Other non-traumatic joint disorders (20 sources) Acute arthropathy; Translations: [Arthropathy, unspecified] Onset: 03-11-2022 Chronic Other nutritional; endocrine; and metabolic disorders (20 sources) Body mass index 40+ - severely obese; Translations: [Morbid (severe) obesity due to excess calories] Onset: 09-05-2022 09-07-2022 Chronic Other nutritional; endocrine; and metabolic disorders (20 sources) Morbid obesity; Translations: [Morbid (severe) obesity due to excess calories] Onset: 08-23-2015 10-02-2022 Chronic Other nutritional; endocrine; and metabolic disorders (8 sources) Body mass index 30+ - obesity; Translations: [Obesity, unspecified] Onset: 08-30-2015 06-23-2024 Chronic Other nutritional; endocrine; and metabolic disorders (1 source) Body mass index (BMI) 40.0-44.9, adult; Translations: [BMI 40.0-44.9, adult (HCC)] Onset: 06-25-2024 Chronic Other screening for suspected conditions (not mental disorders or infectious disease) (11 sources) Liver function tests abnormal; Translations: [Other specified abnormal findings of blood chemistry] Onset: 02-04-2017 06-23-2024 Episodic Residual codes; unclassified (20 sources) Sleep apnea; Translations: [Sleep apnea, unspecified] Onset: 10-02-2022 09-14-2021 Chronic Residual codes; unclassified (20 sources) Obstructive sleep apnea syndrome; Translations: [Obstructive sleep apnea (adult) (pediatric)] Onset: 06-06-2022 Chronic Residual codes; unclassified (20 sources) Presence of other specified functional implants; Translations: [Other postprocedural status] Onset: 10-29-2022 Chronic Spondylosis; intervertebral disc disorders; other back problems (20 sources) Degeneration of lumbar intervertebral disc; Translations: [Other intervertebral disc degeneration, lumbar region] Onset: 08-23-2015 Chronic Spondylosis; intervertebral disc disorders; other back problems (20 sources) Low back pain; Translations: [Radiculopathy due to lumbar intervertebral disc disorder] Onset: 08-23-2015 09-14-2021 Episodic Unclassified (1 source) Other intervertebral disc degeneration, lumbar region without mention of lumbar back pain or lower extremity pain; Translations: [Other intervertebral disc degeneration, lumbar region without mention of lumbar back pain or lower extremity pain] Onset: 03-12-2025 Unclassified (1 source) Low back pain, unspecified; Translations: [Low back pain, unspecified] Onset: 03-12-2025 Past or Other Problems Problem Classification Problem Date Documented Da te Episodic/Chronic Abdominal hernia (20 sources) Hiatal hernia; Translations: [Diaphragmatic hernia without obstruction or gangrene] Onset: 10-02-2022 09-12-2021 Episodic Malaise and fatigue (20 sources) Asthenia; Translations: [Weakness] Onset: 10-02-2023 Resolved: 12-23-2023 10-02-2023 Episodic Other acquired deformities (20 sources) Leg length inequality; Translations: [Unequal limb length (acquired), unspecified site] Onset: 12-11-2021 10-02-2022 Episodic Other aftercare (20 sources) Taking high risk medication; Translations: [Other terminologist (current) drug therapy] Onset: 10-29-2022 Episodic Other aftercare (20 sources) Patient encounter status; Translations: [[facility] (current) use of opiate analgesic] Onset: 02-06-2016 10-02-2022 Episodic Other aftercare (10 sources) Long-term current use of drug therapy; Translations: [Other halfway (current) drug therapy] Onset: 02-15-2017 07-31-2023 Episodic Other bone disease and musculoskeletal deformities (8 sources) Osteopenia; Translations: [Other specified disorders of bone density and structure, unspecified site] Onset: 02-06-2016 06-23-2024 Episodic Other connective tissue disease (20 sources) Fibromyositis; Translations: [Fibromyalgia] Onset: 08-23-2015 10-02-2022 Episodic Other connective tissue disease (20 sources) Myofascial pain syndrome; Translations: [Myalgia, other site] Onset: 03-11-2022 Episodic Other connective tissue disease (8 sources) Hand pain; Translations: [Pain in unspecified hand] Onset: 08-30-2015 06-23-2024 Episodic Other connective tissue disease (1 source) Myalgia, other site; Translations: [Myofascial pain syndrome] Onset: 07-31-2023 Episodic Other lower respiratory disease (8 sources) Orthopnea; Translations: [Orthopnea] Onset: 08-30-2015 06-23-2024 Episodic Other nervous system disorders (20 sources) Post-surgery back pain; Translations: [Other acute postprocedural pain] Onset: 02-15-2022 09-14-2021 Episodic Other non-traumatic joint disorders (20 sources) Pain in left knee; Translations: [Pain in joint, lower leg] Onset: 04-17-2017 10-02-2022 Episodic Other non-traumatic joint disorders (20 sources) Hip pain; Translations: [Pain in left hip] Onset: 08-23-2015 10-02-2022 Episodic Other non-traumatic joint disorders (20 sources) Decreased range of knee movement; Translations: [Stiffness of left knee, not elsewhere classified] Onset: 10-02-2023 Resolved: 12-23-2023 10-02-2023 Episodic Other non-traumatic joint disorders (1 source) Stiffness of left knee, not elsewhere classified; Translations: [Decreased range of motion of left knee] Onset: 12-23-2023 Episodic Results Test Name Value Interpretation Reference Range Facility L/S Spine Min 4 Viewson L/S Spine Min 4 Views [facility] Imaging Services [address] [place], [place] [id number] L/S Spine Min 4 Views MR#: [id number] Acct: [id number] Name: EMPERATRIZ GHOSH Rep #: [id number] : 1950 F 74 From: Scott Garcia MD PCP: Status: DEP AMB Study: L/S Spine Min 4 Views Date of Exam: 02/25/25 Exam# [id number] Ordering Dr: Aretha Barton PROCEDURE: L/S SPINE MIN 4 VIEWS 02/25/2025 REASON FOR EXAM: BACK PAIN TECHNIQUE: L/S SPINE MIN 4 VIEWS COMPARISON: No FINDINGS: Moderate S shaped scoliosis. Status post posterior fusion L1 through L4. Status post anterior fusion L2 through L4. Intact hardware. Diffuse facet arthritis. Grade 1 anterolisthesis, L4 on L5. Lower thoracic spine disc space narrowing, endplate sclerosis, and osteophyte formation. No abnormal motion with flexion/extension. RAD/L/S Spine Min 4 Views IMPRESSION: Lumbar spine scoliosis and degeneration. Reading Location: [place] [address] CC: ZACKARY Whittington Cable Stretcher And Tester: Signed Normal [facility] Orthopedic Visit Reporton Orthopedic Visit Report [facility] [address] [place] [address] [address] [place] [address] OFFICE VISIT Date of Service: 02/25/25 MR#: [id number] Acct: [id number] Name: EMPERATRIZ GHOSH Rep #: [id number] : 1950 Provider: Dr. Jose Juan Springer MD Age/Sex: 74/F Location: [facility] [place] [place] Status: Signed Intake Vital Signs 02/25/25 14:46 Height 5 ft Weight: 226 lb BMI 44.1 Intake Visit Reasons: LUMBAR SPINE Chief Complaint: lumbar spine Is patient in pain?: Yes (lumbar spine ) Pain scale (1-10): 7 Allergies No Known Allergies Allergy (Unverified 02/25/25 14:46) Medications ???Medication ???Instructions ???Recorded ???Confirmed ???Type PAIN PUMP (INFORMATIONAL USE 02/25/25 02/25/25 History ONLY-PATIENT HAS MORPHINE PUMP) ascorbic acid (vitamin C) 500 mg mg PO 02/25/25 02/25/25 History capsule aspirin 81 mg tablet 81 mg PO QDAY 02/25/25 02/25/25 Hi story brimonidine 0.2 % eye drops 1 drp ophthalmic (eye) BID 5 02/25/25 History duloxetine 60 mg capsule,delayed 60 mg PO QDAY 02/25/25 02/25/25 Hi story release famotidine 20 mg tablet 40 mg PO QHS 02/25/25 02/25/25 His tory ferrous sulfate 325 mg (65 mg 325 mg PO QDAY 02/25/25 02/25/25 H istory iron) tablet (FeroSul) folic acid 1 mg tablet 1 mg PO QDAY 02/25/25 02/25/25 His tory gabapentin 800 mg tablet 800 mg PO TID 02/25/25 02/25/25 Hi story latanoprost 0.005 % eye drops 1 drp ophthalmic (eye) QPM 5 02/25/25 History lidocaine-prilocaine 2.5 %-2.5 % 1 - 2 topical TID PRN 02/25/2511/17 History topical cream lisinopril 20 1 tab PO QDAY 02/25/25 02/25/25 Hi story mg-hydrochlorothiazide 25 mg tablet nystatin 100,000 unit/gram topical topical DIRECTED 02/25/2511/17 History powder (Nystop) omeprazole 40 mg capsule,delayed 40 mg PO QDAY 02/25/25 02/25/25 Hi story release simvastatin 20 mg tablet 20 mg PO QDAY 02/25/25 02/25/25 Hi story tolterodine 4 mg capsule,extended 4 mg PO QDAY 02/25/25 02/25/25 Hi story release 24 hr Have you fallen in the past year?: No PFS Medical History (Updated 02/26/25 @ 13:[address] Jose Juan Springer MD) Bladder prolapse GERD (gastroesophageal reflux disease) Hyperlipemia Hypertension Surgical History (Updated 02/26/25 @ 13:[address] Jose Juan Springer MD) Hx of tonsillectomy H/O: hysterectomy History of hip replacement H/O spinal fusion H/O carpal tunnel repair History of knee replacement Social History (Updated 02/25/25 @ 14:55 by Gisela Mcbride, RN) Smoking Status: Never smoker HPI LUMBAR SPINE Details: This documentation accurately reflects the service provided and the decisions made by me, Dr. Jose Juan Springer MD 02/25/25 1445. Part of today???s visit was documented by Gisela Mcbride RN, acting as scribe. EMPERATRIZ GHOSH is a 74 year old F here today for lumbar spine pain. She was referred by Dr. Chase after a failed spinal cord stimulator attempt. She has a spinal cord stimulator that was implanted two years ago. She also had two spinal fusions L1-L3 in [address] Gusman at [facility] L3-L4 in [address] Jiménez at [facility]. She has received injections with Dr. Chase, the last one was the fall of 2023. She reports the injections are no longer helping. She has done PT and water therapy three years ago which was not helpful. She complains of left sided low back pain at her belt line. She denies numbness, tingling or radicular symptoms. She would like to discuss insertion of the spinal cord stimulator to help her pain, Dr. Chase was unsuccessful at placing this due to scar tissue. She has not had any recent x-ray or MRI's. She had a spinal cord stimulator trial with Dr. Lyn at [facility]. He states the trial did not produce any good results so they removed it. She states the removal did not require any anesthesia. Patient is unsure if she has had any MRIs in the last year. She has been ambulating with a cane for about 1-2 years. Denies any balance issues. The patient is a 74-year-old female presenting with chronic back pain management and evaluation for spinal cord stimulator placement. The patient has undergone two lumbar spinal fusion surgeries, with the last one performed in 2015. She has not had any further discussions about additional surgeries since then. The patient reports significant pain along the waistline, which varies depending on her activities, and sometimes requires her to lie down flat due to the severity. A spinal cord stimulator trial was previously conducted but did not yield beneficial results, leading to its removal shortly after placement. The trial was performed percutaneously and did not require anesthesia for removal. The patient expressed dissatisfaction with the trial, feeling it w (more content not included)... Normal [facility] Thoracic Spine 2 Viewson Thoracic Spine 2 Views [facility] Imaging Services [address] [place] [address] Thoracic Spine 2 Views MR#: [id number] Acct: [id number] Name: EMPERATRIZ GHOSH Rep #: [id number] : 1950 F 74 From: Scott Garcia MD PCP: Status: DEP AMB Study: Thoracic Spine 2 Views Date of Exam: 02/25/25 Exam# [id number] Ordering Dr: Jose Juan Springer MD PROCEDURE: THORACIC SPINE 2 VIEWS 02/25/2025 REASON FOR EXAM: SCS PLACEMENT PLANNING TECHNIQUE: THORACIC SPINE 2 VIEWS COMPARISON: No FINDINGS: Moderate scoliosis. Normal heart size. Large hiatal hernia. Multilevel disc space narrowing, endplate sclerosis, osteophyte formation. Underlying osteoporosis. No acute bone or soft tissue pathology. RAD/Thoracic Spine 2 Views IMPRESSION: Thoracic spine scoliosis and degeneration. Reading Location: [place] [address] CC: Dr. Jose Juan Springer MD Cable Stretcher And Tester: Signed [facility] BRIEF OP NOTon 09-21-2024 BRIEF OP NOT HNO ID: [id number] Author: MAYNOR FERNANDEZ MD Service: Cardiovascular Medicine Author Type: Physician Type: Brief Op Note Filed: 09/27/2024 22:45 Note Text: Left heart catheterization with bilateral coronary angiography and left ventriculography via the right radial artery Procedure 09/21/2024 Indication: 74 year old female over with a past medical history of HTN, HLD, obesity, interstitial lung disease following with pulmonary, GERD with Abreu's esophagus, mild sleep apnea (not on CPAP), coronary calcifications (seen on CT scan; normal Cardiolite in 06/2022), chronic pain with implanted Medtronic intrathecal morphine pain pump (Dr Lyn;09/28/2022), OA, and family hx of premature CAD, who presents today for a left heart catheterization after an abnormal stress test showing mild LAD ischemia ischemic dilation with LVEF 82% on 08/20/2024 for complaints of continued mild dyspnea. Atypical chest pain only during food stuck in her throat Findings: Left main: Normal LAD: Tortuous with mild to moderate diffuse disease near the apex LCx: Tortuous with minimal luminal irregularities RCA: Luminal regularities with moderate diffuse disease the distal branch vessels LV: EF 75% with minimal apical hypokinesis Recommend: Minimal coronary disease other than moderate diffuse disease of the LAD and distal branch vessels of RCA Blood pressures typically run systolic upper 90s to 110s Plan : Treatment of hypertension and hyperlipidemia Maynor Fernandez MD [facility] CARD CATH DIAGNOSTICon 09-21 CARD CATH DIAGNOSTIC Site Id: [facility] #: DEFAULT Study Date: 09/21/2024 Start Time: End Time: Name Duty Maynor Fernandez MD PROC MD 1 Lillie Natarajan PROC SCRUB 1 Mana Gresham RN PROC CIRC 1 Juliette Stallworth RN PROC RECORD 1 + + PATIENT INFORMATION + + Name: EMPERATRIZ GHOSH : 1950 Age: 74 years Gender: F + -------+ CLINICAL HISTORY/INDICATIONS + -------+ Dyspnea. Appropriate Use Criteria (Diag): High risk findings of transient ischemic dilation Symptomatic; AUC score = 8. Procedural Status: Elective CAD Presentation: Symptoms Likely to be Ischemic Angina Classification (within 2 weeks): No Angina No Heart Failure Clinical History: 74 year old female over with a past medical history of HTN, HLD, obesity, interstitial lung disease following with pulmonary, GERD with Abreu's esophagus, mild sleep apnea (not on CPAP), coronary calcifications (seen on CT scan; normal Cardiolite in 06/2022), chronic pain with implanted Medtronic intrathecal morphine pain pump (Dr Lyn;09/28/2022), OA, and family hx of premature CAD, who presents today for a left heart catheterization after an abnormal stress test showing mild LAD ischemia ischemic dilation with LVEF 82% on 08/20/2024 for complaints of continued mild dyspnea. Atypical chest pain only during food stuck in her throat + + DIAGNOSTIC FINDINGS + + Coronary Anatomy: Right Dominant Injection Site(s): Left Main Coronary Artery, Right Coronary Artery and Left Ventricle LMT: The LMT is normal. LAD: The distal LAD - moderate diffuse disease. Additional Comment: Tortuous with mild to moderate diffuse disease near the apex. LCX: The Circumflex has mild luminal irregularities. Additional Comment: Tortuous with minimal luminal irregularities. RAMUS: The Ramus is Absent. RCA: The RCA has mild luminal irregularities. Additional Comment: Luminal regularities with moderate diffuse disease the distal branch vessels. + + IMPRESSION/PLAN + + Impression: Left heart catheterization with bilateral coronary angiography and left ventriculography via the right radial artery Recommend: 1. Minimal coronary disease other than moderate diffuse disease of the LAD and distal branch vessels of RCA 2. Blood pressures typically run systolic upper 90s to 110s Recommended Treatment: Medical Therapy. Plan: Treatment of hypertension and hyperlipidemia + + HEMODYNAMICS - XPER + + + +---- --+-----+-------+----- +------+------+ Measurement Name Sys Arely End Arely Mean A Wave V Wave + +---- --+-----+-------+----- +------+------+ AO 95.00 55.00 74.00 + +---- --+-----+-------+----- +------+------+ LV 116.00 3.00 13.00 + +---- --+-----+-------+----- +------+------+ LVp 110.00 9.00 22.00 + +---- --+-----+-------+----- +------+------+ AOp 109.00 71.00 89.00 + +---- --+-----+-------+----- +------+------+ AO 108.00 72.00 89.00 + +---- --+-----+-------+----- +------+------+ Oximetry: +----+----+ --+--+---+--+ Time Site O2 Saturation O2 PO2 HB +----+----+ --+--+---+--+ + + ADVERSE OUTCOME(s)/COMPLICATIO N(s) + + None + ---------+ PROCEDURAL & TECHNICAL DETAILS + ---------+ Date Time Description 09/21/2024 12:00:00 AM D - CORS- LV *MEDICAL HISTORY* CAD Presentation: Symptoms Likely to be Ischemic Angina Classification (within 2 weeks): No Angina No Heart Failure Family History of CAD: Unknown Congenital Heart Disease: No Coronary Artery Disease: Unknown Dyslipidemia: Yes Hypertension: Yes Dialysis: Currently not on dialysis Left Ventricle EF: 82 by SPECT. LVEF at Discharge: Procedure Details: Blood Loss: < 30ml Specimen: No Specimen Obtained Recent PCI Failure of Treated Vessel: Contrast: Radiation: Procedure performed under Fluoroscopic Guidance Total Dose 371.72 mGy Dose Area Product 0.00 Gy*m Total Exposure Time 315.53 sec Baseline: HGB: Creatinine: Glucose: INR: Conscious Sedation Summary: Moderate sedation consisting of continuous ECG, pulse oxymetry and cardiopulmonary monitoring was performed by the Cardiology Nurse, overseen by the performing physician(s). Attending Physician Presence Attestation: Entire Procedure Electronically Submitted by: Maynor Fernandez MD On: 10/23/2024 at 3:51:08 PM Final CC [facility] Medical Image : [id number] ISUID See Link below for Image Normal [facility] CBC panel Auto (Bld)on 09-21 Erythrocyte distribution width (RBC) [Ratio] 11.6 % Normal 11.5-15.[address] [facility] Comment on above: Order Comment: Speci men Type: BLOOD SPECIMENOrdering Facility: [facility] Address: [address] [place] [address] Performed By: #### 5 8410-2 ####[facility] LABORATORYCLIA [id number] [place] [address] [place] Hematocrit (Bld) [Volume fraction] 44.4 % Normal 36.0-46.[address] [facility] Comment on above: Order Comment: Speci men Type: BLOOD SPECIMENOrdering Facility: [facility] Address: [address] [place], [place] [address] Performed By: #### 5 8410-2 ####[facility] LABORATORYCLIA [id number] [place] [address] [place] Hemoglobin (Bld) [Mass/Vol] 14.9 g/dL Normal 11.5-15.[address] [facility] Comment on above: Order Comment: Speci men Type: BLOOD SPECIMENOrdering Facility: [facility] Address: [address] [place] [address] Performed By: #### 5 8410-2 ####[facility] LABORATORYCLIA [id number] [place] [address] [place] MCH (RBC) [Entitic mass] 31.8 pg Normal 26.0-34.[address] [facility] Comment on above: Order Comment: Speci men Type: BLOOD SPECIMENOrdering Facility: [facility] Address: [address] [place] [address] Performed By: #### 5 8410-2 ####[facility] LABORATORYCLIA [id number] [place] [address] [place] MCHC (RBC) [Mass/Vol] 33.6 g/dL Normal 30.5-36.[address] [facility] Comment on above: Order Comment: Speci men Type: BLOOD SPECIMENOrdering Facility: [facility] Address: [address] [place] [address] Performed By: #### 5 8410-2 ####[facility] LABORATORYCLIA [id number] [place] [address] [place] MCV (RBC) [Entitic vol] 94.7 fL Normal 80.0-100.[address] [facility] Comment on above: Order Comment: Speci men Type: BLOOD SPECIMENOrdering Facility: [facility] Address: [address] [place] [address] Performed By: #### 5 8410-2 ####[facility] LABORATORYCLIA [id number] [place] [id number] [place] Nucleated RBC (Bld) [#/Vol] 10*3/uL Normal <0.[address] [facility] Comment on above: Order Comment: Speci men Type: BLOOD SPECIMENOrdering Facility: [facility] Address: [address] [place] [address] Performed By: #### 5 8410-2 ####[facility] LABORATORYCLIA [id number] [place] [address] [place] Platelet mean volume (Bld) [Entitic vol] 9.2 fL Normal 9.0-12.[address] [facility] Comment on above: Order Comment: Speci men Type: BLOOD SPECIMENOrdering Facility: [facility] Address: [address] [place] [address] Performed By: #### 5 8410-2 ####[facility] LABORATORYCLIA [id number] [place] [address] [place] Platelets (Bld) [#/Vol] 190 10*3/uL Normal 150-[address] [facility] Comment on above: Order Comment: Speci men Type: BLOOD SPECIMENOrdering Facility: [facility] Address: [address] [place] [address] Performed By: #### 5 8410-2 ####[facility] LABORATORYCLIA [id number] [place] [address] [place] RBC (Bld) [#/Vol] 4.69 10*6/uL Normal 3.90-5.[address] [facility] Comment on above: Order Comment: Speci men Type: BLOOD SPECIMENOrdering Facility: [facility] Address: [address] [place] [address] Performed By: #### 5 8410-2 ####[facility] LABORATORYCLIA [id number] [place] [id number] [place] WBC (Bld) [#/Vol] 7.22 10*3/uL Normal 3.70-11.[address] [facility] Comment on above: Order Comment: Speci men Type: BLOOD SPECIMENOrdering Facility: [facility] Address: [address] [place] [address] Performed By: #### 5 8410-2 ####[facility] LABORATORYCLIA [id number] [place] [id number] [facility] Comprehensive metabolic 2000 panelon 09-21-2024 Albumin [Mass/Vol] 3.5 g/dL Normal 3.2-5.[address] [facility] Comment on above: Order Comment: Speci men Type: BLOOD SPECIMENOrdering Facility: [facility] Address: [address] [place] [address] Performed By: #### 2 4323-8, 23401-7, , 3015-3 ####[facility] LABORATORYCLIA [id number] [place] [id number] [place] ALP [Catalytic activity/Vol] 126 U/L High 45-[address] [facility] Comment on above: Order Comment: Speci men Type: BLOOD SPECIMENOrdering Facility: [facility] Address: [address] [place] [address] Performed By: #### 2 4323-8, 75412-0, , 3 ####[facility] LABORATORYCLIA [id number] [place] [id number] [facility] ALT [Catalytic activity/Vol] 22 U/L Normal 13-[address] [facility] Comment on above: Order Comment: Speci men Type: BLOOD SPECIMENOrdering Facility: [facility] Address: [address] [place] [address] Result Comment: Resu lts may be falsely depressed after the administration of Sulfasalazine and/or Sulfapyridine. Performed By: #### 2 4323-8, 76944-8, , 3015-3 ####[facility] LABORATORYCLIA [id number] [place] [id number] [place] Anion gap [Moles/Vol] 8 mmol/L Normal 5-[address] [facility] Comment on above: Order Comment: Speci men Type: BLOOD SPECIMENOrdering Facility: [facility] Address: [address] [place] [address] Performed By: #### 2 4323-8, 49601-3, , 3 ####[facility] LABORATORYCLIA [id number] [place] [id number] [place] AST [Catalytic activity/Vol] 26 U/L Normal 8-[address] [facility] Comment on above: Order Comment: Speci men Type: BLOOD SPECIMENOrdering Facility: [facility] Address: [address] [place] [address] Result Comment: Resu lts may be falsely depressed after the administration of Sulfasalazine and/or Sulfapyridine. Performed By: #### 2 4323-8, 59805-9, , 3015-10 ####[facility] LABORATORYCLIA [id number] [place] [id number] [place] Bilirubin [Mass/Vol] 0.7 mg/dL Normal 0.2-1.[address] [facility] Comment on above: Order Comment: Speci men Type: BLOOD SPECIMENOrdering Facility: [facility] Address: [address] [place] [address] Performed By: #### 2 4323-8, 84719-2, , 3015-10 ####[facility] LABORATORYCLIA [id number] [place] [id number] [place] Calcium [Mass/Vol] 9.9 mg/dL Normal 8.5-10.[address] [facility] Comment on above: Order Comment: Speci men Type: BLOOD SPECIMENOrdering Facility: [facility] Address: [address] [place] [address] Performed By: #### 2 4323-8, 91828-2, , 3015-10 ####[facility] LABORATORYCLIA [id number] [place] [id number] [place] Chloride [Moles/Vol] 104 mmol/L Normal 98-[address] [facility] Comment on above: Order Comment: Speci men Type: BLOOD SPECIMENOrdering Facility: [facility] Address: [address] [place] [address] Performed By: #### 2 4323-8, 91850-3, 86173-0, 3015-3 ####[facility] LABORATORYCLIA [id number] [place] [id number] [place] CO2 [Moles/Vol] 30 mmol/L Normal 21-32 [facility] Comment on above: Order Comment: Speci men Type: BLOOD SPECIMENOrdering Facility: [facility] Address: [address] [place], [place] [address] Performed By: #### 2 4323-8, 46623-0, , 3 ####[facility] LABORATORYCLIA [id number] [place] [id number] [place] Creatinine [Mass/Vol] 0.64 mg/dL Normal 0.51-0.[address] [facility] Comment on above: Order Comment: Speci men Type: BLOOD SPECIMENOrdering Facility: [facility] Address: [address] [place] [address] Result Comment: Anyi ents receiving either N-Acetylcysteine (NAC) or Metamizole prior to venipuncture, may have falsely depressed results. Performed By: #### 2 4323-8, 06928-0, 84258-6, 3 ####[facility] LABORATORYCLIA [id number] [address] [facility] Creatinine and Glomerular filtration rate.predicted panel (S/P/Bld) 92 mL/min/1.73m??? Normal >=[address] [facility] Comment on above: Order Comment: Speci men Type: BLOOD SPECIMENOrdering Facility: [facility] Address: [address] [place] [id number] Result Comment: Giselle mated Glomerular Filtration Rate (eGFR) is calculated using the 2020 CKD-EPI creatinine equation. This equation utilizes serum creatinine, sex, and age as parameters. The creatinine assay has traceable calibration to isotope dilution-mass spectrometry. Refer to KDIGO guidelines for clinical interpretation. In patients with unstable renal function, e.g. those with acute kidney injury, the eGFR may not accurately reflect actual GFR. Performed By: #### 2 4323-8, 60103-4, 76149-6, 3015-3 ####[facility] LABORATORYCLIA [id number] [place] [address] [place] Glucose [Mass/Vol] 95 mg/dL Normal 70-[address] [facility] Comment on above: Order Comment: Pelon wilson Type: BLOOD SPECIMENOrdering Facility: [facility] Address: [address] [place] [id number] Result Comment: The [place] Diabetes Association (ADA) provides guidance for cutoff values for fasting glucose and random glucose. The ADA defines fasting as no caloric intake for at least 8 hours. Fasting plasma glucose results between 100 to 125 mg/dL indicate increased risk for diabetes (prediabetes). Fasting plasma glucose results greater than or equal to 126 mg/dL meet the criteria for diagnosis of diabetes. In the absence of unequivocal hyperglycemia, results should be confirmed by repeat testing. In a patient with classic symptoms of hyperglycemia or hyperglycemic crisis, random plasma glucose results greater than or equal to 200 mg/dL meet the criteria for diagnosis of diabetes. Reference: Standards of Medical Care in Diabetes 2016, [place] [employer] Association. Diabetes Care. 2016.39(Suppl 1). Results may be falsely elevated after the administration of Sulfapyridine. Results may be falsely depressed after the administration of Sulfasalazine. Performed By: #### 2 4323-8, 52767-3, , 3 ####[facility] LABORATORYCLIA [id number] [place] [id number] [place] Potassium [Moles/Vol] 3.5 mmol/L Normal 3.5-5.[address] [facility] Comment on above: Order Comment: Pelon wilson Type: BLOOD SPECIMENOrdering Facility: [facility] Address: [address] [place] [address] Performed By: #### 2 4323-8, 04330-0, 79325-7, 3015-3 ####[facility] LABORATORYCLIA [id number] [place] [address] [place] Protein [Mass/Vol] 6.8 g/dL Normal 6.0-8.[address] [facility] Comment on above: Order Comment: Speci men Type: BLOOD SPECIMENOrdering Facility: [facility] Address: [address] [place] [address] Performed By: #### 2 4323-8, 19680-9, 06419-0, 6-3 ####[facility] LABORATORYCLIA [id number] [place] [id number] [place] [facility] Sodium [Moles/Vol] 142 mmol/L Normal 136-[address] [facility] Comment on above: Order Comment: Speci men Type: BLOOD SPECIMENOrdering Facility: [facility] Address: [address] [place] [address] Performed By: #### 2 4323-8, 43271-5, 04029-9, 6-3 ####[facility] LABORATORYCLIA [id number] [place] [id number] [place] Urea nitrogen [Mass/Vol] 19 mg/dL Normal 7-[address] [facility] Comment on above: Order Comment: Speci men Type: BLOOD SPECIMENOrdering Facility: [facility] Address: [address] [place] [address] Performed By: #### 2 4323-8, 25709-2, 62060-0, 6-3 ####[facility] LABORATORYCLIA [id number] [place] [id number] [facility] ECG COMPLETEon 09-21-2024 ECG COMPLETE Ventricular Rate : 9 8 BPM Atrial Rate : 98 BPM P-R Interval : 168 ms QRS Duration : 72 ms Q-T Interval : 380 ms QTC Calculation(Bazett) : 485 ms Calculated P [place] : 45 degrees Calculated R [place] : 9 degrees Calculated T [place] : 24 degrees Normal sinus rhythm QTcB >= 480 msec Abnormal ECG When compared with ECG of 20-Aug-2024 10:30, No interval changes Confirmed by HAYDEN HOLT MD ([id number]) on 09/21/2024 5:00:56 PM NAME : EMPERATRIZ GHOSH PID : [id number] : 1950 Gender : Female Race : ORD : [id number] Procedure Date : Sep 21 2024 07:57:27 Edit Date : Sep 21 2024 17:00:59 Diagnosis: Normal sinus rhythm QTcB >= 480 msec Abnormal ECG When compared with ECG of 20-Aug-2024 10:30, No interval changes Confirmed by HAYDEN HOLT MD ([id number]) on 09/21/2024 5:00:56 PM Test Reason : stat Location : 23 : SURG MRCTHPL Overread By : HAYDEN HOLT MD Edited By : HAYDEN HOLT MD Referred By : , Acquired by : BETH KEYS [facility] HISTORY PHYSICALon HISTORY PHYSICAL HNO ID: [id number] Author: GILLIAN RAMIREZ APRN.ANESTHESIOLOGIST Service: Clinical Cardiology Author Type: Nurse Practitioner Type: H&P Filed: 09/21/2024 10:58 Note Text: CARDIOLOGY HISTORY AND PHYSICAL EXAMINATION DATE of SERVICE: September 21, 2024 TIME of SERVICE: 8:00 AM ATTENDING MOTORIZED SQUAD CAPTAIN: Dr. Maynor Fernandez CHIEF COMPLAINT: Elective left heart catheterization HPI: Rina. This is a 74 year old female with a past medical history of HTN, HLD, obesity, interstitial lung disease following with pulmonary, GERD with Abreu's esophagus, mild sleep apnea (not on CPAP), coronary calcifications (seen on CT scan; normal Cardiolite in 06/2022), chronic pain with implanted Medtr[employer] intrathecal morphine pain pump (Dr Lyn;09/28/2022), OA, and family hx of premature CAD, who presents today for a left heart catheterization after an abnormal stress test showing LAD ischemia on 08/20/2024 for complaints of continued dyspnea. She has no complaints of chest pain, palpitations, shortness of breath at rest orthopnea/PND, lightheadedness/dizzin ess, fevers, chills, N/V/D, or cough. She has been complaining of LEA, for which she has been following with pulmonary Dr. Mccullough and been diagnosed with interstitial lung disease. Today, she is asymptomatic. The patient has been NPO since 10 PM last evening. She did take her a.m. medications with of grape juice this morning at about 6:15 AM. She she is not on anticoagulation. She takes a baby aspirin every day; last dose was this morning. She denies any allergies to IV Contrast, shellfish or iodine. PAST MEDICAL HISTORY Diagnosis Date Abnormal stress test 08/27/[address] Cardona Acid reflux controlled w meds, sees Gastro Dr Leon Ambulates with cane WHEN IS OUT ABOUT Arthritis IN JOINTS IN BACK- has implanted pain pump to right hip sees Dr Chase for pain management in [place] Back pain has implanted pain pump to right hip sees Dr Chase for pain management in [place] Abreu esophagus Dr Leon egd 08/2024 new dz. 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 Essential hypertension controlled with meds moniotred by pcp GERD (gastroesophageal reflux disease) controlled w meds sees Dr Leon- Gastro Glaucoma left eye, ues drops H/O echocardiogram 02/01/2023 Dr Cardona Hiatal hernia High cholesterol controlled w meds, monitored by pcp Incontinence of urine Interstitial lung disease (HCC) sees Pulmonary, unsure of name Joint pain Pain management Placed by Dr Lyn at [facility] now sees Dr Chase in [place] - has implanted pain pump to right hip Sleep apnea mild sleep apnea- no cpap used seen by Pulmonary unsure of name Wears glasses PAST SURGICAL HISTORY Procedure Laterality Date BLADDER SURGERY HX 1994 REPAIR AND LIFT CARPAL TUNNEL RIGHT WRIST Bilateral 02/2023 COLONOSCOPY SCREENING 09/16/2024 Dr Leon EGD W/O [facility] SPEC VARICIES INJ Dr Leon Aug 2024 HYSTERECTOMY HX 1983 partial INTRATHECAL PUMP PLACEMENT 09/28/[address] Lyn now managed by Dr Chase in [place] ORTHOPEDICS SURGERY HX Bilateral left hip replacement 2005 right 2016 PAST SURGICAL HISTORY OF Lumbar fusionsx2 L 1-[address] Gusman and L3-4 Dr Jiménez 2016 TONSILLECTOMY HX 1959 TOTAL KNEE REPLACEMENT Bilateral RIGHT TOTAL KNEE REPLACED 2012 Left 2023 FAMILY HISTORY Problem Relation Age of Onset Stroke Father Heart disease Father Kidney Disease Mother Osteoporosis Mother Diabetes Sister Breast Cancer Sister Social History Tobacco Use Smoking status: Never Passive exposure: Never Smokeless tobacco: Never Vaping Use Vaping status: Never Used Substance Use Topics Alcohol use: Not Currently Drug use: Never MEDICATIONS: Prior to Admission Medications: clotrimazole (LOTRIMIN AF, CLOTRIMAZOLE,) 1 % creamApply to affected area as needed (to affected areas).Disp: Rfl: NYSTOP powderAPPLY TOPICALLY TO THE AFFECTED AREA DIRECTEDDisp: Rfl: nystatin-triamcinolone (MYCOLOG II) creamAPPLY TOPICALLY TO THE AFFECTED AREA 2 TO 3 TIMES DAILY NEEDEDDisp: Rfl: morphine (PF) 5 mg/mL in NaCl 0.9% 20 mLPF MORPHINE 5 MG/ML SIMPLE CONTINUOUS RATE 0.8636 mg/ day PTM 0.0799 mg every 4 hours (max 6 doses per day) Total daily dose 1.3397mgDisp: 20 mLRfl: 0 (Patient taking differently: PF MORPHINE 5 MG/ML Through Pain Pump cared for by Dr Lopez SIMPLE CONTINUOUS RATE 0.8636 mg/ day PTM 0.0799 mg every 4 hours (max 6 doses per day) Total daily dose 1.3397mg) gabapentin (NEURONTIN) 800 mg tabletTake 1 tablet by mouth three times a day for 120 days.Disp: 90 tabletRfl: 3 Acetaminophen 500 mg capTake 1,000 mg by mouth two times a day as needed.Disp: Rfl: ascorbic acid, vitamin C, (VITAMIN C) 500 mg tabletTake 500 mg by mouth once daily.Disp: Rfl: famotidine (PEPCID) 20 mg tabletTake 40 mg by mouth daily at bedtime.Disp: Rfl: calcium carbonate (CALTRATE) 600 mg calcium (1,500 mg) tabT (more content not included)... Normal [facility] Lipid 1996 panelon 5 Cholesterol [Mass/Vol] 146 mg/dL Normal 0-[address] [facility] Comment on above: Order Comment: Speci men Type: BLOOD SPECIMENOrdering Facility: [facility] Address: [address] [place] [address] Result Comment: <200 mg/dL, Desirable 200-239 mg/dL, Borderline high >239 mg/dL, High Performed By: #### 2 4323-8, 32869-1, 59677-9, 3016-3 ####[facility] LABORATORYCLIA [id number] [place] [address] [place] Cholesterol in HDL [Mass/Vol] 53 mg/dL Normal >[address] [facility] Comment on above: Order Comment: Speci men Type: BLOOD SPECIMENOrdering Facility: [facility] Address: [address] [place], [place] [id number] Result Comment: 40-5 9 mg/dL, Acceptable >59 mg/dL, High: Negative risk factor for coronary heart disease <40 mg/dL, Low: Positive risk factor for coronary heart disease Performed By: #### 2 4323-8, 22280-1, , 3015-10 ####[facility]ORATORYCLIA [id number] [place] [address] [place] Cholesterol in LDL [Mass/Vol] 66 mg/dL Normal 0-[address] [facility] Comment on above: Order Comment: Speci men Type: BLOOD SPECIMENOrdering Facility: [facility] Address: [address] [place] [address] Result Comment: <100 mg/dL, Optimal 100-129 mg/dL, Near optimal/above optimal 130-159 mg/dL, Borderline high 160-189 mg/dL, High >189 mg/dL, Very high Secondary prevention optimal LDL Cholesterol levels are recommended to be < 70 mg/dL Performed By: #### 2 4323-8, 58929-9, , 3015-10 ####[facility]ATORYCLIA [id number] [place] [address] [place] Cholesterol in LDL/Cholesterol in HDL [Mass ratio] 1.25 {ratio} Normal <2.[address] [facility] Comment on above: Order Comment: Speci men Type: BLOOD SPECIMENOrdering Facility: [facility] Address: [address] [place] [address] Result Comment: Jaylen salmon: 1. National Cholesterol Education Program ATP III Guideline At-A-Glance Quick Desk Reference: National Heart, Lung, and Blood [place]. National Institutes of Health. 2001: NIH Publication No. 01-3305. 2. An International Atherosclerosis Society position paper: global recommendations for the management of dyslipidemia: executive summary, Atherosclerosis. 2014: 232(2):410-413. Performed By: #### 2 4323-8, 96369-1, , 3015-10 ####[facility]ATORYCLIA [id number] [place] [address] [place] Cholesterol in VLDL [Mass/Vol] 27 mg/dL Normal <[address] [facility] Comment on above: Order Comment: Speci men Type: BLOOD SPECIMENOrdering Facility: [facility] Address: [address] [place] [address] Performed By: #### 2 4323-8, 62124-6, , 3015-10 ####[facility] LABORATORYCLIA [id number] [place] [id number] [facility] [place] Cholesterol non HDL [Mass/Vol] 93 mg/dL Normal <[address] [facility] Comment on above: Order Comment: Speci men Type: BLOOD SPECIMENOrdering Facility: [facility] Address: [facility] [place] [address] Result Comment: <130 mg/dL, Optimal 130-159 mg/dL, Near optimal/above optimal 160-189 mg/dL, Borderline high 190-219 mg/dL, High >219 mg/dL, Very high Secondary prevention optimal non HDL Cholesterol levels are recommended to be <100 mg/dL Performed By: #### 2 4323-8, 30634-8, , 3015-10 ####[facility]ORATORYCLIA [id number] [place] [id number] [facility] [place] Cholesterol.total/C holesterol in HDL [Mass ratio] 2.75 {ratio} Normal <5.[address] [facility] Comment on above: Order Comment: Speci men Type: BLOOD SPECIMENOrdering Facility: [facility] Address: [address] [place] [address] Performed By: #### 2 4323-8, 40827-7, , 3015-10 ####[facility] LABORATORYCLIA [id number] [place] [address] [place] FASTING TIME 10 hrs Normal [facility] Comment on above: Order Comment: Speci men Type: BLOOD SPECIMENOrdering Facility: [facility] Address: [address] [place] [address] Performed By: #### 2 4323-8, 11725-8, , 3015-10 ####[facility]ORATORYCLIA [id number] [place] [id number] [place] Triglyceride [Mass/Vol] 134 mg/dL Normal 30-[address] [facility] Comment on above: Order Comment: Pelon wilson Type: BLOOD SPECIMENOrdering Facility: [facility] Address: [address] [place] [address] Result Comment: <150 mg/dL, Normal 150-199 mg/dL, Borderline high 200-499 mg/dL, High >499 mg/dL, Very high Patients receiving either N-Acetylcysteine (NAC) or Metamizole prior to venipuncture, may have falsely depressed results. Performed By: #### 2 4323-8, 85151-3, 03698-3, 3015-3 ####[facility]ATORYCLIA [id number] [place] [id number] [place] Magnesium SerPl-mCncon 09-21 Magnesium [Mass/Vol] 1.7 mg/dL Normal 1.6-2.[address] [facility] Comment on above: Order Comment: Pelon wilson Type: BLOOD SPECIMENOrdering Facility: [facility] Address: [address] [place] [address] Performed By: #### 2 4323-8, 83481-5, , 3 ####[facility] LABORATORYCLIA [id number] [place] [id number] [place] PT panel Coag (PPP)on 2024 INR Coag (PPP) [Relative time] 1.0 {INR} Normal 0.9-1.[address] [facility] Comment on above: Order Comment: Pelon wilson Type: BLOOD SPECIMENOrdering Facility: [facility] Address: [address] [place] [address] Result Comment: Lolita min K Antagonist (VKA) Therapeutic Range: INR 2 to 3 (Target INR of 2.5) Note: For patients treated with VKA drugs, such as warfarin, the [place] [employer] 2012 Guideline recommends a therapeutic INR range of 2 to 3 (target INR of 2.5). This recommendation includes high-risk patients with antiphospholipid syndrome with previous arterial or venous thromboembolism, current-generation mechanical or bioprosthetic aortic heart valve replacement. Note: Patients with mechanical aortic valve replacement and additional risk factors for thromboembolic events (atrial fibrillation, previous thromboembolism, LV dysfunction, hypercoagulable conditions) or an older generation mechanical AVR (i.e., ball in-Cage) or any mechanical MVR should have a INR therapeutic range of 2.5 to 3.5 (target INR of 3). Kenyatta GH, et al. Chest 2012, 141:7S-47S Zahraa RA, et al. [facility] 2017, 70: 252-289 Performed By: #### 3 4528-0 ####[facility]ORATORYCLIA [id number] [place] [address] [place] [facility] PT Coag (PPP) [Time] 10.7 s Normal 9.7-13.[address] [facility] Comment on above: Order Comment: Speci men Type: BLOOD SPECIMENOrdering Facility: [facility] Address: [address] [place] [address] Performed By: #### 3 4528-0 ####[facility]ORATORYCLIA [id number] [address] [place] TSH SerPl-aCncon 09-21-2024 TSH Qn 8.550 m[IU]/L High 0.358-3.740 [facility] Comment on above: Order Comment: Speci men Type: BLOOD SPECIMENOrdering Facility: [facility] Address: [address] [place] [address] Result Comment: 3rd generation ultra sensitive TSH. Performed By: #### 2 4323-8, 46870-7, 30266-0, 3016-3 ####[facility] LABORATORYCLIA [id number] [place] [id number] [facility] [place] NURSING PROGon 09-18-2024 NURSING PROG HNO ID: [id number] Author: MERLYN HOLM RN Service: Nursing Author Type: Registered Nurse Type: Nursing Progress Note Filed: 09/18/2024 16:04 Note Text: PRE-PROCEDURE INSTRUCTIONS TO PREPARE FOR YOUR PROCEDURE: Your arrival time for your procedure is 0730. Do NOT eat any solid foods after MIDNIGHT the night prior to your procedure - this includes gum or mints. You can drink clear liquids* up until 0700, which is 2 hours before your arrival time. *Clear liquids = water, carbohydrate drink (sports drink that is clear or yellow in color), Ensure Pre-Surgery (given by CARLY or your DrKatie), fruit juice without pulp (apple/cranberry), clear tea, black coffee (no cream). NO CARBONATED BEVERAGES AND NO ALCOHOL. Shower the morning of the procedure, put on clean clothes, and have clean sheets for your bed to help prevent infection after your procedure. Leave all valuables such as jewelry including rings, piercings, wallets, and purses at home. Wear comfortable, loose-fitting clothing. If you wear glasses or contacts, please bring a case. SPECIAL INSTRUCTIONS: If instructed, bring your first voided urine specimen with you. If you were provided skin preparation to use prior to your procedure, complete this as directed. If a bowel preparation has been ordered by your physician, it is very important to follow the bowel prep instructions or your procedure may need to be rescheduled. If you use crutches or a walker, bring them with you. If you have a home CPAP/BIPAP machine, bring it with you. If you were instructed to complete a fleets enema or bowel prep, complete as directed. Bring copy of Living Will/Power of Save All Operator. Do not smoke or chew. If you use tobacco, quit or at least cut down before surgery. Do not smoke or chew after midnight the day before your surgery. This effects bleeding, infection, healing, and so much more. Do not take any Diet or Herbal Supplements 2 weeks prior to your surgery date. Please notify your physician if there is any change in your physical condition such as a cold, cough, fever, sore throat, or skin irritation near the surgical site. Visitors under the age of 14 are restricted in the Surgery Center. UPON ARRIVAL: Access to [facility] (the [facility] building) is located on [address] [employer]ic parking is available for your convenience from 5am-5pm- there is a $5.00 charge for this service. Take the elevators directly inside the entrance to the 1st Floor Surgery Lobby. Sign in at the podium located to the left when you get off the elevators. A payment may be expected at the time of service. One visitor may come back to the preoperative area with you. The preoperative staff will be reviewing your medical history, please let them know if you prefer not to have a visitor with you during this time. Once you are ready for your procedure, two visitors at a time are permitted in your preprocedure room. [facility] NURSING PROGon 09-17-2024 NURSING PROG HNO ID: [id number] Author: QUENTIN CRISTINA RN Service: Nursing Author Type: Registered Nurse Type: Nursing Progress Note Filed: 09/17/2024 16:38 Note Text: Patient has a [employer] intrathecal Pain pump implanted in her right hip by Dr Lyn on 09/28/2022. It is currently being managed by Dr Chase in [place] for pain management. I left a message with Dr Fernandez's nurse Shandra and aoc director intelligence officer Kaylene to see if Dr Fernandez need device management form for her upcoming heart cath procedure on 09/21/24. 09/17/24 1412 I also spoke with Dr Chase's office and they informed me that the device does not need touch or change for this type of procedure per Dr Chase. I will inform Dr Fernandez's office of this. [facility] Zoey 09-02-2024 IVETTE Telephone (POP) EMPERATRIZ GHOSH ([id number]) 1950 F Date Time Provider Department 09/02/24 MAHAMED CARDONA During your visit today, we recorded the following information about you: Allergies As of Date: 09/02/2024 (No Known Allergies) Date Reviewed: 06/25/2024 Reviewed by: Kimberlee Sharma MA - Fully Assessed Reason for Visit: Patient Update [1234] Cmt: Patient notified of heart cath 09/18/2024 @ 8:00AM. Janet Wiley LPN Prescriptions as of 09/02/2024 - NYSTOP powder APPLY TOPICALLY TO THE AFFECTED AREA DIRECTED - nystatin-triamcinolone (MYCOLOG II) cream APPLY TOPICALLY TO THE AFFECTED AREA 2 TO 3 TIMES DAILY NEEDED - morphine (PF) 5 mg/mL in NaCl 0.9% 20 mL PF MORPHINE 5 MG/ML SIMPLE CONTINUOUS RATE 0.8636 mg/ day PTM 0.0799 mg every 4 hours (max 6 doses per day) Total daily dose 1.3397mg - gabapentin (NEURONTIN) 800 mg tablet Take 1 tablet by mouth three times a day for 120 days. - Acetaminophen 500 mg cap Take 1,000 mg by mouth two times a day as needed. - ascorbic acid, vitamin C, (VITAMIN C) 500 mg tablet Take 500 mg by mouth once daily. - famotidine (PEPCID) 20 mg tablet Take 20 mg by mouth daily at bedtime. - calcium carbonate (CALTRATE) 600 mg calcium (1,500 mg) tab Take by mouth every 24 hours. - omeprazole (PRILOSEC) 40 mg capsule take 1 capsule by mouth every day before a meal - ferrous sulfate (IRON) 325 mg (65 mg iron) tablet Take 325 mg by mouth. - lidocaine-prilocaine (EMLA) 2.5-2.5 % cream Apply to affected area as needed. 1-2 grams to affected area TID PRN - dorzolamide-timolol (COSOPT) 22.3-6.8 mg/mL ophthalmic solution INSTILL 1 DROP IN LEFT EYE TWICE DAILY - cholecalciferol (VITAMIN D3) 5,000 unit tab Take 2,000 Units by mouth once daily. Last dose 09/26/22 - Lactobac no.41/Bifidobact no.7 (PROBIOTIC-10 ORAL) Take 1 tablet by mouth every morning. - tolterodine ER (DETROL LA) 4 mg 24 hr capsule Take 4 mg by mouth every morning. - Zinc 50 mg tab as needed. - latanoprost (XALATAN) 0.005 % ophthalmic solution Use 1 Drop in both eyes daily at bedtime. - lisinopril-hydroCHLORO thiazide (PRINZIDE, ZESTORETIC) 20-25 mg per tablet Take 1 tablet by mouth every morning. - simvastatin (ZOCOR) 20 mg tablet Take 20 mg by mouth daily at bedtime. - brimonidine (ALPHAGAN) 0.2 % ophthalmic solution Use 1 Drop in the left eye twice daily. GLAUCOMA - cyclobenzaprine (FLEXERIL) 10 mg tablet Take 10 mg by mouth three times daily as needed for muscle spasm. - aspirin, enteric coated (ASPIRIN, ENTERIC COATED) 81 mg EC tablet Take 81 mg by mouth every morning. IS GOING TO CHECK WITH SURGEON AND PCP ABOUT WHEN NEEDS TO STOP ASA - multivit with minerals/lutein (MULTIVITAMIN 50 PLUS ORAL) Last dose 09/26/22 - folic acid 800 mcg tablet Take 800 mcg by mouth every morning. FROM PCP BLOOD NOT CLOT NORMAL PERSON Problem List As Of Date 09/02/2024 Noted Resolved Other chronic pain [G89.29] 08/23/2015 Myofascial pain syndrome [M79.18] 03/11/2022 Radiculitis, thoracic [M54.14] 03/11/2022 Acute arthropathy [M12.9] 03/11/2022 Lumbar postlaminectomy syndrome [M96.1] 08/16/2022 Lumbar radiculopathy [M54.16] 08/23/2015 DDD (degenerative disc disease), lumbar [M51.36*08/16/2022 Degeneration of lumbar intervertebral disc [M51*09/05/2022 Obesity, Class III, BMI >= 40 [E66.01] 09/05/2022 Encounter for long-term (current) use of medica*02/15/2017 Encounter for other general examination [Z00.8] 10/04/2021 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] 08/23/2015 Gastroesophageal reflux disease without esophag*08/30/2015 Generalized osteoarthritis [M15.9] 08/23/2015 Glaucoma [H40.9] 10/02/2022 Hiatal hernia [K44.9] 10/02/2022 History of hip replacement, total, left [Z96.64*08/23/2015 Mixed hyperlipidemia [E78.2] 08/30/2015 Knee pain, left [M25.562] 04/17/2017 Leg length discrepancy [M21.70] 12/11/2021 Morbid obesity (HCC) [E66.01] 08/23/2015 LINDY (obstructive sleep apnea) [G47.33] 06/06/2022 Sleep apnea [G47.30] 10/02/2022 Osteoarthritis of hip [M16.9] 11/21/2015 Pain in left hip [M25.552] 08/23/2015 Postoperative back pain [G89.18, M54.9] 02/15/2022 Sacroiliac joint dysfunction of both sides [M53*08/23/2015 Arthritis [M19.90] 10/02/2022 Postlaminectomy syndrome, lumbar region [M96.1] 11/21/2015 Chronic pain syndrome [G89.4] 02/15/2017 Arthropathy of thoracic facet joint [M47.814] 12/19/2017 Degeneration of intervertebral disc of thoracic*12/19/2017 Lumbar degenerative disc disease [M51.369] 08/23/2015 Lumbar facet arthropathy [M47.816] 08/23/2015 Lumbar spondylosis [M47.816] 08/10/2021 Thoracic radiculopathy [M54.14] 12/19/2017 Intervertebral disc disorder with radiculopathy*02/16/20 Chronic low back pain [M54.50, G89.29] 02/04/2017 Implantable intrathecal infusion pump present [*10/29/2022 History of arthroplasty [Z98.890 (ICD-10-CM)] [*10/29/ (more content not included)... [facility] Zoey 08-31-2024 SHANA Telephone (POP) EMPERATRIZ GHOSH ([id number]) 1950 F Date Time Provider Department 08/31/24 MAHAMED CARDONA During your visit today, we recorded the following information about you: Jnaet Wiley LPN 08/31/2024 1:24 PM Signed ----- Message from Mahamed Cardona MD sent at 08/20/2024 1:34 PM EST ----- Cardiolite mildly abnormal in Anterior distribution - ischemic. Sxs do not sound GI, but lots of risk factors. I suggest a cath, and will order if she agrees. Allergies As of Date: 08/31/2024 (No Known Allergies) Date Reviewed: 06/25/2024 Reviewed by: Kimberlee Sharma MA - Fully Assessed Reason for Visit: Results [95] Cmt: Has agreed to proceed with cath. Please place order in chart. aJnet Wiley LPN Prescriptions as of 08/31/2024 - NYSTOP powder APPLY TOPICALLY TO THE AFFECTED AREA DIRECTED - nystatin-triamcinolone (MYCOLOG II) cream APPLY TOPICALLY TO THE AFFECTED AREA 2 TO 3 TIMES DAILY NEEDED - morphine (PF) 5 mg/mL in NaCl 0.9% 20 mL PF MORPHINE 5 MG/ML SIMPLE CONTINUOUS RATE 0.8636 mg/ day PTM 0.0799 mg every 4 hours (max 6 doses per day) Total daily dose 1.3397mg - gabapentin (NEURONTIN) 800 mg tablet Take 1 tablet by mouth three times a day for 120 days. - Acetaminophen 500 mg cap Take 1,000 mg by mouth two times a day as needed. - ascorbic acid, vitamin C, (VITAMIN C) 500 mg tablet Take 500 mg by mouth once daily. - famotidine (PEPCID) 20 mg tablet Take 20 mg by mouth daily at bedtime. - calcium carbonate (CALTRATE) 600 mg calcium (1,500 mg) tab Take by mouth every 24 hours. - omeprazole (PRILOSEC) 40 mg capsule take 1 capsule by mouth every day before a meal - ferrous sulfate (IRON) 325 mg (65 mg iron) tablet Take 325 mg by mouth. - lidocaine-prilocaine (EMLA) 2.5-2.5 % cream Apply to affected area as needed. 1-2 grams to affected area TID PRN - dorzolamide-timolol (COSOPT) 22.3-6.8 mg/mL ophthalmic solution INSTILL 1 DROP IN LEFT EYE TWICE DAILY - cholecalciferol (VITAMIN D3) 5,000 unit tab Take 2,000 Units by mouth once daily. Last dose 09/26/22 - Lactobac no.41/Bifidobact no.7 (PROBIOTIC-10 ORAL) Take 1 tablet by mouth every morning. - tolterodine ER (DETROL LA) 4 mg 24 hr capsule Take 4 mg by mouth every morning. - Zinc 50 mg tab as needed. - latanoprost (XALATAN) 0.005 % ophthalmic solution Use 1 Drop in both eyes daily at bedtime. - lisinopril-hydroCHLORO thiazide (PRINZIDE, ZESTORETIC) 20-25 mg per tablet Take 1 tablet by mouth every morning. - simvastatin (ZOCOR) 20 mg tablet Take 20 mg by mouth daily at bedtime. - brimonidine (ALPHAGAN) 0.2 % ophthalmic solution Use 1 Drop in the left eye twice daily. GLAUCOMA - cyclobenzaprine (FLEXERIL) 10 mg tablet Take 10 mg by mouth three times daily as needed for muscle spasm. - aspirin, enteric coated (ASPIRIN, ENTERIC COATED) 81 mg EC tablet Take 81 mg by mouth every morning. IS GOING TO CHECK WITH SURGEON AND PCP ABOUT WHEN NEEDS TO STOP ASA - multivit with minerals/lutein (MULTIVITAMIN 50 PLUS ORAL) Last dose 09/26/22 - folic acid 800 mcg tablet Take 800 mcg by mouth every morning. FROM PCP BLOOD NOT CLOT NORMAL PERSON Problem List As Of Date 08/31/2024 Noted Resolved Other chronic pain [G89.29] 08/23/2015 Myofascial pain syndrome [M79.18] 03/11/2022 Radiculitis, thoracic [M54.14] 03/11/2022 Acute arthropathy [M12.9] 03/11/2022 Lumbar postlaminectomy syndrome [M96.1] 08/16/2022 Lumbar radiculopathy [M54.16] 08/23/2015 DDD (degenerative disc disease), lumbar [M51.36*08/16/2022 Degeneration of lumbar intervertebral disc [M51*09/05/2022 Obesity, Class III, BMI >= 40 [E66.01] 09/05/2022 Encounter for long-term (current) use of medica*02/15/2017 Encounter for other general examination [Z00.8] 10/04/2021 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] 08/23/2015 Gastroesophageal reflux disease without esophag*08/30/2015 Generalized osteoarthritis [M15.9] 08/23/2015 Glaucoma [H40.9] 10/02/2022 Hiatal hernia [K44.9] 10/02/2022 History of hip replacement, total, left [Z96.64*08/23/2015 Mixed hyperlipidemia [E78.2] 08/30/2015 Knee pain, left [M25.562] 04/17/2017 Leg length discrepancy [M21.70] 12/11/2021 Morbid obesity (HCC) [E66.01] 08/23/2015 LINDY (obstructive sleep apnea) [G47.33] 06/06/2022 Sleep apnea [G47.30] 10/02/2022 Osteoarthritis of hip [M16.9] 11/21/2015 Pain in left hip [M25.552] 08/23/2015 Postoperative back pain [G89.18, M54.9] 02/15/2022 Sacroiliac joint dysfunction of both sides [M53*08/23/2015 Arthritis [M19.90] 10/02/2022 Postlaminectomy syndrome, lumbar region [M96.1] 11/21/2015 Chronic pain syndrome [G89.4] 02/15/2017 Arthropathy of thoracic facet joint [M47.814] 12/19/2017 Degeneration of intervertebral disc of thoracic*12/19/2017 Lumbar degenerative disc disease [M51.369] 08/23/2015 Lumbar facet arthropathy [M47.816] 08/23/2015 Lumbar spondylosis [M47. (more content not included)... [facility] CNOVon 08-20-2024 [facility] Office Visit (POP ) EMPERATRIZ GHOSH ([id number]) 1950 F Date Time Provider Department 08/20/24 10:30 AM [facility] SALINAS LORD During your visit today, we recorded the following information about you: Referring Provider: MAHAMED CARDONA [[id number]] Allergies As of Date: 08/20/2024 (No Known Allergies) Date Reviewed: 06/25/2024 Reviewed by: Kimberlee Sharma MA - Fully Assessed Visit Diagnoses:Coronary artery calcification seen on CT scan [I25.10] Dyspnea, unspecified type [R06.00] Order(s):[] regadenoson 0.4 mg injection (LEXISCAN)Disp: Rfl: Prescriptions as of 09/04/2024 - NYSTOP powder APPLY TOPICALLY TO THE AFFECTED AREA DIRECTED - nystatin-triamcinolone (MYCOLOG II) cream APPLY TOPICALLY TO THE AFFECTED AREA 2 TO 3 TIMES DAILY NEEDED - morphine (PF) 5 mg/mL in NaCl 0.9% 20 mL PF MORPHINE 5 MG/ML SIMPLE CONTINUOUS RATE 0.8636 mg/ day PTM 0.0799 mg every 4 hours (max 6 doses per day) Total daily dose 1.3397mg - gabapentin (NEURONTIN) 800 mg tablet Take 1 tablet by mouth three times a day for 120 days. - Acetaminophen 500 mg cap Take 1,000 mg by mouth two times a day as needed. - ascorbic acid, vitamin C, (VITAMIN C) 500 mg tablet Take 500 mg by mouth once daily. - famotidine (PEPCID) 20 mg tablet Take 20 mg by mouth daily at bedtime. - calcium carbonate (CALTRATE) 600 mg calcium (1,500 mg) tab Take by mouth every 24 hours. - omeprazole (PRILOSEC) 40 mg capsule take 1 capsule by mouth every day before a meal - ferrous sulfate (IRON) 325 mg (65 mg iron) tablet Take 325 mg by mouth. - lidocaine-prilocaine (EMLA) 2.5-2.5 % cream Apply to affected area as needed. 1-2 grams to affected area TID PRN - dorzolamide-timolol (COSOPT) 22.3-6.8 mg/mL ophthalmic solution INSTILL 1 DROP IN LEFT EYE TWICE DAILY - cholecalciferol (VITAMIN D3) 5,000 unit tab Take 2,000 Units by mouth once daily. Last dose 09/26/22 - Lactobac no.41/Bifidobact no.7 (PROBIOTIC-10 ORAL) Take 1 tablet by mouth every morning. - tolterodine ER (DETROL LA) 4 mg 24 hr capsule Take 4 mg by mouth every morning. - Zinc 50 mg tab as needed. - latanoprost (XALATAN) 0.005 % ophthalmic solution Use 1 Drop in both eyes daily at bedtime. - lisinopril-hydroCHLORO thiazide (PRINZIDE, ZESTORETIC) 20-25 mg per tablet Take 1 tablet by mouth every morning. - simvastatin (ZOCOR) 20 mg tablet Take 20 mg by mouth daily at bedtime. - brimonidine (ALPHAGAN) 0.2 % ophthalmic solution Use 1 Drop in the left eye twice daily. GLAUCOMA - cyclobenzaprine (FLEXERIL) 10 mg tablet Take 10 mg by mouth three times daily as needed for muscle spasm. - aspirin, enteric coated (ASPIRIN, ENTERIC COATED) 81 mg EC tablet Take 81 mg by mouth every morning. IS GOING TO CHECK WITH SURGEON AND PCP ABOUT WHEN NEEDS TO STOP ASA - multivit with minerals/lutein (MULTIVITAMIN 50 PLUS ORAL) Last dose 09/26/22 - folic acid 800 mcg tablet Take 800 mcg by mouth every morning. FROM PCP BLOOD NOT CLOT NORMAL PERSON Problem List As Of Date 08/20/2024 Noted Resolved Other chronic pain [G89.29] 08/23/2015 Myofascial pain syndrome [M79.18] 03/11/2022 Radiculitis, thoracic [M54.14] 03/11/2022 Acute arthropathy [M12.9] 03/11/2022 Lumbar postlaminectomy syndrome [M96.1] 08/16/2022 Lumbar radiculopathy [M54.16] 08/23/2015 DDD (degenerative disc disease), lumbar [M51.36*08/16/2022 Degeneration of lumbar intervertebral disc [M51*09/05/2022 Obesity, Class III, BMI >= 40 [E66.01] 09/05/2022 Encounter for long-term (current) use of medica*02/15/2017 Encounter for other general examination [Z00.8] 10/04/2021 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] 08/23/2015 Gastroesophageal reflux disease without esophag*08/30/2015 Generalized osteoarthritis [M15.9] 08/23/2015 Glaucoma [H40.9] 10/02/2022 Hiatal hernia [K44.9] 10/02/2022 History of hip replacement, total, left [Z96.64*08/23/2015 Mixed hyperlipidemia [E78.2] 08/30/2015 Knee pain, left [M25.562] 04/17/2017 Leg length discrepancy [M21.70] 12/11/2021 Morbid obesity (HCC) [E66.01] 08/23/2015 LINDY (obstructive sleep apnea) [G47.33] 06/06/2022 Sleep apnea [G47.30] 10/02/2022 Osteoarthritis of hip [M16.9] 11/21/2015 Pain in left hip [M25.552] 08/23/2015 Postoperative back pain [G89.18, M54.9] 02/15/2022 Sacroiliac joint dysfunction of both sides [M53*08/23/2015 Arthritis [M19.90] 10/02/2022 Postlaminectomy syndrome, lumbar region [M96.1] 11/21/2015 Chronic pain syndrome [G89.4] 02/15/2017 Arthropathy of thoracic facet joint [M47.814] 12/19/2017 Degeneration of intervertebral disc of thoracic*12/19/2017 Lumbar degenerative disc disease [M51.369] 08/23/2015 Lumbar facet arthropathy [M47.816] 08/23/2015 Lumbar spondylosis [M47.816] 08/10/2021 Thoracic radiculopathy [M54.14] 12/19/2017 Intervertebral disc disorder with radiculopathy*02/16/20 22 Chronic low back pain [M54.50, G89.29] 0 (more content not included)... [facility] 08-20-2024 SHANA Telephone (POP) EMPERATRIZ GHOSH ([id number]) 1950 F Date Time Provider Department 08/20/24 MAHAMED CARDONA During your visit today, we recorded the following information about you: Allergies As of Date: 08/20/2024 (No Known Allergies) Date Reviewed: 06/25/2024 Reviewed by: Kimberlee Sharma MA - Fully Assessed Reason for Visit: Medication Problem [65] Cmt: Spoke with Emperatriz; she is going to give a thought to having a heart cath. I gave her the phone number here at my desk and she will call next week. Janet Wiley LPN Prescriptions as of 08/20/2024 - NYSTOP powder APPLY TOPICALLY TO THE AFFECTED AREA DIRECTED - nystatin-triamcinolone (MYCOLOG II) cream APPLY TOPICALLY TO THE AFFECTED AREA 2 TO 3 TIMES DAILY NEEDED - morphine (PF) 5 mg/mL in NaCl 0.9% 20 mL PF MORPHINE 5 MG/ML SIMPLE CONTINUOUS RATE 0.8636 mg/ day PTM 0.0799 mg every 4 hours (max 6 doses per day) Total daily dose 1.3397mg - gabapentin (NEURONTIN) 800 mg tablet Take 1 tablet by mouth three times a day for 120 days. - Acetaminophen 500 mg cap Take 1,000 mg by mouth two times a day as needed. - ascorbic acid, vitamin C, (VITAMIN C) 500 mg tablet Take 500 mg by mouth once daily. - famotidine (PEPCID) 20 mg tablet Take 20 mg by mouth daily at bedtime. - calcium carbonate (CALTRATE) 600 mg calcium (1,500 mg) tab Take by mouth every 24 hours. - omeprazole (PRILOSEC) 40 mg capsule take 1 capsule by mouth every day before a meal - ferrous sulfate (IRON) 325 mg (65 mg iron) tablet Take 325 mg by mouth. - lidocaine-prilocaine (EMLA) 2.5-2.5 % cream Apply to affected area as needed. 1-2 grams to affected area TID PRN - dorzolamide-timolol (COSOPT) 22.3-6.8 mg/mL ophthalmic solution INSTILL 1 DROP IN LEFT EYE TWICE DAILY - cholecalciferol (VITAMIN D3) 5,000 unit tab Take 2,000 Units by mouth once daily. Last dose 09/26/22 - Lactobac no.41/Bifidobact no.7 (PROBIOTIC-10 ORAL) Take 1 tablet by mouth every morning. - tolterodine ER (DETROL LA) 4 mg 24 hr capsule Take 4 mg by mouth every morning. - Zinc 50 mg tab as needed. - latanoprost (XALATAN) 0.005 % ophthalmic solution Use 1 Drop in both eyes daily at bedtime. - lisinopril-hydroCHLORO thiazide (PRINZIDE, ZESTORETIC) 20-25 mg per tablet Take 1 tablet by mouth every morning. - simvastatin (ZOCOR) 20 mg tablet Take 20 mg by mouth daily at bedtime. - brimonidine (ALPHAGAN) 0.2 % ophthalmic solution Use 1 Drop in the left eye twice daily. GLAUCOMA - cyclobenzaprine (FLEXERIL) 10 mg tablet Take 10 mg by mouth three times daily as needed for muscle spasm. - aspirin, enteric coated (ASPIRIN, ENTERIC COATED) 81 mg EC tablet Take 81 mg by mouth every morning. IS GOING TO CHECK WITH SURGEON AND PCP ABOUT WHEN NEEDS TO STOP ASA - multivit with minerals/lutein (MULTIVITAMIN 50 PLUS ORAL) Last dose 09/26/22 - folic acid 800 mcg tablet Take 800 mcg by mouth every morning. FROM PCP BLOOD NOT CLOT NORMAL PERSON Problem List As Of Date 08/20/2024 Noted Resolved Other chronic pain [G89.29] 08/23/2015 Myofascial pain syndrome [M79.18] 03/11/2022 Radiculitis, thoracic [M54.14] 03/11/2022 Acute arthropathy [M12.9] 03/11/2022 Lumbar postlaminectomy syndrome [M96.1] 08/16/2022 Lumbar radiculopathy [M54.16] 08/23/2015 DDD (degenerative disc disease), lumbar [M51.36*08/16/2022 Degeneration of lumbar intervertebral disc [M51*09/05/2022 Obesity, Class III, BMI >= 40 [E66.01] 09/05/2022 Encounter for long-term (current) use of medica*02/15/2017 Encounter for other general examination [Z00.8] 10/04/2021 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] 08/23/2015 Gastroesophageal reflux disease without esophag*08/30/2015 Generalized osteoarthritis [M15.9] 08/23/2015 Glaucoma [H40.9] 10/02/2022 Hiatal hernia [K44.9] 10/02/2022 History of hip replacement, total, left [Z96.64*08/23/2015 Mixed hyperlipidemia [E78.2] 08/30/2015 Knee pain, left [M25.562] 04/17/2017 Leg length discrepancy [M21.70] 12/11/2021 Morbid obesity (HCC) [E66.01] 08/23/2015 LINDY (obstructive sleep apnea) [G47.33] 06/06/2022 Sleep apnea [G47.30] 10/02/2022 Osteoarthritis of hip [M16.9] 11/21/2015 Pain in left hip [M25.552] 08/23/2015 Postoperative back pain [G89.18, M54.9] 02/15/2022 Sacroiliac joint dysfunction of both sides [M53*08/23/2015 Arthritis [M19.90] 10/02/2022 Postlaminectomy syndrome, lumbar region [M96.1] 11/21/2015 Chronic pain syndrome [G89.4] 02/15/2017 Arthropathy of thoracic facet joint [M47.814] 12/19/2017 Degeneration of intervertebral disc of thoracic*12/19/2017 Lumbar degenerative disc disease [M51.369] 08/23/2015 Lumbar facet arthropathy [M47.816] 08/23/2015 Lumbar spondylosis [M47.816] 08/10/2021 Thoracic radiculopathy [M54.14] 12/19/2017 Intervertebral disc disorder with radiculopathy*02/16/20 22 Chronic low back pain [M54.50, G89.29] 02/04/2017 Implantab (more content not included)... Normal [facility] NM CARDIAC PERF STRESS/PHARM on 08-20-2024 NM CARDIAC PERF STRESS/PHARM * * *Final Report* * * DATE OF EXAM: Aug 20 2024 11:19AM STUART 0006 - NM CARDIAC PERF STRESS/PHARM / PROCEDURE REASON: multiple diagnoses * * * * Physician Interpretation * * * * PATIENT: Name: MS. EMPERATRIZ GHOSH Age: 74 years Gender: F CONCLUSIONS: 1. SPECT Perfusion Study: Abnormal. possible mild ischemia at the apex with TID 1.31 - Need further evaluation 2. No evidence of scarred myocardium. 3. There is mild (<10%) ischemia in the territory of the LAD. 4. Left ventricle is normal in size. The left ventricle systolic function is normal. 5. There is transient ischemic dilation of the LV cavity with stress. 6. Right ventricle is mildly dilated. 7. This is a high risk scan. Gated Stress FBP LVEF % 82 Prior Study Comparison Prior nuclear cardiology exam was performed on 06-29-2022. Nuclear Med Report:1-Day Gated SPECT Myocardial Perfusion with Regadenoson Stress: Myocardial perfusion imaging was performed at rest 30 minutes following the IV injection of the radiotracer. The patient received 0.4 mg of regadenoson, via rapid IV push, immediately followed by radiotracer IV. Gated post stress tomographic imaging was performed 30 to 60 minutes later. See administered radiotracer and doses below. [facility] Date of service: 08/20/2024 9:45:26 AM Ordering Physician: MAHAMED CARDONA. Requesting Physician: Indication: Dyspnea Interpreting physician: Rachelle Norwood MD Height: 152.40 cm BSA: 2.06 m? Weight: 99.79 kg BMI: 43.0 kg/m? Imaging Protocol Limitation Reason Breast attenuation. CT Dose Reduction Employed: No. Exam Type: Rest Stress Radiopharm: Tc-99m Tetrofosmin Tc-99m Tetrofosmin Dosage(mCi): 16.1 48.2 Atten Correction: not performed not performed Stress Agent: Regadenoson 0.4mg Supply provided from [facility] Resting Blood Press: 103/62 mmHg Image Quality The overall study imaging quality was deemed to be good. The following technical issues were noted: Breast attenuation. FINDINGS: Left Ventricle Wall Motion: Stress FBP - All segments are normal. Rest FBP - Gated Stress FBP - Reversibility - Stress FBP Stress FBP Gated Stress FBP LVEF: 82 % ED Volume: 38 ml ES Volume: 7 ml TID: 1.31 Perfusion Findings Stress FBP - Summed Score=2 There is a mild perfusion defect in the apical lateral segment and apex. All remaining scored segments show normal perfusion. Rest FBP - Summed Score=0 All segments demonstrate normal perfusion. Stress FBP Rest FBP Summed Score=2 Summed Score=0 LEFT VENTRICLE The left ventricle is normal in size. Left ventricular systolic function is normal. Right Ventricle The right ventricle is mildly dilated. Stress Test Findings: There is no evidence of scarring. The left ventricular cavity size is increased with stress. * * * Final * * * ------ Stress ECG Report: [facility] Date of service: 08/20/2024 9:45:26 AM Ordering physician: MAHAMED CARDONA instrument repair specialist: Radha Ramírez RN Interpreting physician: Mahamed Cardona MD Patient name: MS. EMPERATRIZ GHOSH Age: 74 years Gender: F Height: 152.40 cm BSA: 2.06 m? Weight: 99.79 kg BMI: 43.0 kg/m? Indication: Encounter for screening for cardiovascular disorders Stress ECG Conclusion: Conclusion: Normal Comments: Note QTC 513 msec Stress ECG Summary: The patient's resting heart rate was 96 bpm and blood pressure was 103/62 mmHg. The patient received regadenoson 0.4 mg IVP over approximately 15 seconds followed immediately by injection of nuclear isotope. The test was terminated due to end of protocol. Other symptoms during the test included nausea. The maximum heart rate was 121 bpm, which is 84% of the predicted heart rate for age. This is an adequate heart rate response. Peak blood pressure was 100/69 mmHg. The double product achieved was 990[address]. Medications: Last Used LISINOPRIL and HCTZ [id number] PEPCID morphine GABAPENTIN BABY ASPIRIN vit d3 ZOCOR Resting ECG: Normal Sinus Rhythm, Prolonged QT Interval and Right Atrial Abnormality Symptoms at rest: No symptoms Pharamcologic Protocol: Regadenoson +-----+---+---+---+ HR SYS ARELY +-----+---+---+---+ Final 121 100 69 +-----+---+---+---+ Recovery Table: +------+---+---+---+ Stage HR SYS ARELY +------+---+---+---+ 1 121 100 69 +------+---+---+---+ 2 120 117 74 +------+---+---+---+ 3 121 124 85 +------+---+---+---+ Stress Observations: Resting HR: 96 bpm Peak HR: 121 bpm (84% MPHR) Resting BP: 103 / 62 mmHg Peak BP: 100 / 69 mmHg Heart rate recovery (HRR): 0 bpm Rate (more content not included)... [facility] 08-14-2024 SHANAN Telephone (POP) EMPERATRIZ GHOSH ([id number]) 1950 F Date Time Provider Department 08/14/24 MAHAMED CARDONA During your visit today, we recorded the following information about you: Radha Ramírez RN 08/14/2024 11:14 AM Signed Spoke with patient on phone and gave stress test instructions including holding all products with caffeine/decaff 6pm night before with date time and location. Radha Mendoza Allergies As of Date: 08/14/2024 (No Known Allergies) Date Reviewed: 06/25/2024 Reviewed by: Kimberlee Sharma MA - Fully Assessed Prescriptions as of 08/14/2024 - NYSTOP powder APPLY TOPICALLY TO THE AFFECTED AREA DIRECTED - nystatin-triamcinolone (MYCOLOG II) cream APPLY TOPICALLY TO THE AFFECTED AREA 2 TO 3 TIMES DAILY NEEDED - morphine (PF) 5 mg/mL in NaCl 0.9% 20 mL PF MORPHINE 5 MG/ML SIMPLE CONTINUOUS RATE 0.8636 mg/ day PTM 0.0799 mg every 4 hours (max 6 doses per day) Total daily dose 1.3397mg - gabapentin (NEURONTIN) 800 mg tablet Take 1 tablet by mouth three times a day for 120 days. - Acetaminophen 500 mg cap Take 1,000 mg by mouth two times a day as needed. - ascorbic acid, vitamin C, (VITAMIN C) 500 mg tablet Take 500 mg by mouth once daily. - famotidine (PEPCID) 20 mg tablet Take 20 mg by mouth daily at bedtime. - calcium carbonate (CALTRATE) 600 mg calcium (1,500 mg) tab Take by mouth every 24 hours. - omeprazole (PRILOSEC) 40 mg capsule take 1 capsule by mouth every day before a meal - ferrous sulfate (IRON) 325 mg (65 mg iron) tablet Take 325 mg by mouth. - lidocaine-prilocaine (EMLA) 2.5-2.5 % cream Apply to affected area as needed. 1-2 grams to affected area TID PRN - dorzolamide-timolol (COSOPT) 22.3-6.8 mg/mL ophthalmic solution INSTILL 1 DROP IN LEFT EYE TWICE DAILY - cholecalciferol (VITAMIN D3) 5,000 unit tab Take 2,000 Units by mouth once daily. Last dose 09/26/22 - Lactobac no.41/Bifidobact no.7 (PROBIOTIC-10 ORAL) Take 1 tablet by mouth every morning. - tolterodine ER (DETROL LA) 4 mg 24 hr capsule Take 4 mg by mouth every morning. - Zinc 50 mg tab as needed. - latanoprost (XALATAN) 0.005 % ophthalmic solution Use 1 Drop in both eyes daily at bedtime. - lisinopril-hydroCHLORO thiazide (PRINZIDE, ZESTORETIC) 20-25 mg per tablet Take 1 tablet by mouth every morning. - simvastatin (ZOCOR) 20 mg tablet Take 20 mg by mouth daily at bedtime. - brimonidine (ALPHAGAN) 0.2 % ophthalmic solution Use 1 Drop in the left eye twice daily. GLAUCOMA - cyclobenzaprine (FLEXERIL) 10 mg tablet Take 10 mg by mouth three times daily as needed for muscle spasm. - aspirin, enteric coated (ASPIRIN, ENTERIC COATED) 81 mg EC tablet Take 81 mg by mouth every morning. IS GOING TO CHECK WITH SURGEON AND PCP ABOUT WHEN NEEDS TO STOP ASA - multivit with minerals/lutein (MULTIVITAMIN 50 PLUS ORAL) Last dose 09/26/22 - folic acid 800 mcg tablet Take 800 mcg by mouth every morning. FROM PCP BLOOD NOT CLOT NORMAL PERSON Problem List As Of Date 08/14/2024 Noted Resolved Other chronic pain [G89.29] 08/23/2015 Myofascial pain syndrome [M79.18] 03/11/2022 Radiculitis, thoracic [M54.14] 03/11/2022 Acute arthropathy [M12.9] 03/11/2022 Lumbar postlaminectomy syndrome [M96.1] 08/16/2022 Lumbar radiculopathy [M54.16] 08/23/2015 DDD (degenerative disc disease), lumbar [M51.36*08/16/2022 Degeneration of lumbar intervertebral disc [M51*09/05/2022 Obesity, Class III, BMI >= 40 [E66.01] 09/05/2022 Encounter for long-term (current) use of medica*02/15/2017 Encounter for other general examination [Z00.8] 10/04/2021 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] 08/23/2015 Gastroesophageal reflux disease without esophag*08/30/2015 Generalized osteoarthritis [M15.9] 08/23/2015 Glaucoma [H40.9] 10/02/2022 Hiatal hernia [K44.9] 10/02/2022 History of hip replacement, total, left [Z96.64*08/23/2015 Mixed hyperlipidemia [E78.2] 08/30/2015 Knee pain, left [M25.562] 04/17/2017 Leg length discrepancy [M21.70] 12/11/2021 Morbid obesity (HCC) [E66.01] 08/23/2015 LINDY (obstructive sleep apnea) [G47.33] 06/06/2022 Sleep apnea [G47.30] 10/02/2022 Osteoarthritis of hip [M16.9] 11/21/2015 Pain in left hip [M25.552] 08/23/2015 Postoperative back pain [G89.18, M54.9] 02/15/2022 Sacroiliac joint dysfunction of both sides [M53*08/23/2015 Arthritis [M19.90] 10/02/2022 Postlaminectomy syndrome, lumbar region [M96.1] 11/21/2015 Chronic pain syndrome [G89.4] 02/15/2017 Arthropathy of thoracic facet joint [M47.814] 12/19/2017 Degeneration of intervertebral disc of thoracic*12/19/2017 Lumbar degenerative disc disease [M51.369] 08/23/2015 Lumbar facet arthropathy [M47.816] 08/23/2015 Lumbar spondylosis [M47.816] 08/10/2021 Thoracic radiculopathy [M54.14] 12/19/2017 Intervertebral disc disorder with radiculopathy*02/16/20 Chronic low back pain [M54.50, G89.29] 02/04/2017 (more content not included)... Normal [facility] CNOVon 06-25-2024 [facility] Office Visit (POP ) TOMMYEMPERATRIZ ([id number]) 1950 F Date Time Provider Department 06/25/24 8:30 AM MAHAMED CARDONA During your visit today, we recorded the following information about you: Pulse Blood pressure Weight Height 95/minute 117/80 100.7 kg 1.524 m Mahamed Cardona MD 06/25/2024 9:18 AM Signed [facility] [place] OUTPATIENT VISIT DATE June 25, 2024 OUTPATIENT VISIT TYPE New Cardiology Consult PRIMARY CARE PHYSICIAN: Luda Ann [address] [place] [address] HISTORY OF PRESENT ILLNESS: Emperatriz Ghosh is a 74 year old female here for New Patient. CARDIAC HISTORY: 74 F, Rina, referred by Korin Ann DO for coronary calcification on CT (23, 02/16). Has LEA, Normal Echo without HOCM (2022), normal Cardiolite (07/17), chol, HBP, BMI 42+, Interstitial lung disease (sees pulmonary), GERD, ?elevated LFT's (no labs - per Dr. Ann). Family Hx HCM, but she is neg. 06/25/24 - [place]. Mid-chest pain with food getting stuck in esophagus, with indigestion. Has LEA, and a family Hx of HCM. ECHO was normal. CT chest in and showed severe coronary Ca++, but Cardiolite 07/17 was normal. EKG (today) - NSR, QTC 480 msec. RAO2 91%. Social History Tobacco Use Smoking status: Never Passive exposure: Never Smokeless tobacco: Never Substance Use Topics Alcohol use: Not Currently Drug use: Not Currently ALLERGIES No Known Allergies MEDICATIONS: NYSTOP powder APPLY TOPICALLY TO THE AFFECTED AREA DIRECTED nystatin-triamcinolone (MYCOLOG II) cream APPLY TOPICALLY TO THE AFFECTED AREA 2 TO 3 TIMES DAILY NEEDED morphine (PF) 5 mg/mL in NaCl 0.9% 20 mL PF MORPHINE 5 MG/ML SIMPLE CONTINUOUS RATE 0.8636 mg/ day PTM 0.0799 mg every 4 hours (max 6 doses per day) Total daily dose 1.3397mg Acetaminophen 500 mg cap Take 1,000 mg by mouth two times a day as needed. ascorbic acid, vitamin C, (VITAMIN C) 500 mg tablet Take 500 mg by mouth once daily. famotidine (PEPCID) 20 mg tablet Take 20 mg by mouth daily at bedtime. calcium carbonate (CALTRATE) 600 mg calcium (1,500 mg) tab Take by mouth every 24 hours. omeprazole (PRILOSEC) 40 mg capsule take 1 capsule by mouth every day before a meal ferrous sulfate (IRON) 325 mg (65 mg iron) tablet Take 325 mg by mouth. dorzolamide-timolol (COSOPT) 22.3-6.8 mg/mL ophthalmic solution INSTILL 1 DROP IN LEFT EYE TWICE DAILY cholecalciferol (VITAMIN D3) 5,000 unit tab Take 2,000 Units by mouth once daily. Last dose 09/26/22 Lactobac no.41/Bifidobact no.7 (PROBIOTIC-10 ORAL) Take 1 tablet by mouth every morning. tolterodine ER (DETROL LA) 4 mg 24 hr capsule Take 4 mg by mouth every morning. Zinc 50 mg tab as needed. latanoprost (XALATAN) 0.005 % ophthalmic solution Use 1 Drop in both eyes daily at bedtime. lisinopril-hydroCHLORO thiazide (PRINZIDE, ZESTORETIC) 20-25 mg per tablet Take 1 tablet by mouth every morning. simvastatin (ZOCOR) 20 mg tablet Take 20 mg by mouth daily at bedtime. brimonidine (ALPHAGAN) 0.2 % ophthalmic solution Use 1 Drop in the left eye twice daily. GLAUCOMA cyclobenzaprine (FLEXERIL) 10 mg tablet Take 10 mg by mouth three times daily as needed for muscle spasm. aspirin, enteric coated (ASPIRIN, ENTERIC COATED) 81 mg EC tablet Take 81 mg by mouth every morning. IS GOING TO CHECK WITH SURGEON AND PCP ABOUT WHEN NEEDS TO STOP ASA multivit with minerals/lutein (MULTIVITAMIN 50 PLUS ORAL) Last dose 09/26/22 folic acid 800 mcg tablet Take 800 mcg by mouth every morning. FROM PCP BLOOD NOT CLOT NORMAL PERSON gabapentin (NEURONTIN) 800 mg tablet Take 1 tablet by mouth three times a day for 120 days. lidocaine-prilocaine (EMLA) 2.5-2.5 % cream Apply to affected area as needed. 1-2 grams to affected area TID PRN REVIEW OF SYSTEMS: Review of Systems Constitutional: Negative for chills, diaphoresis, fatigue and fever. Eyes: Negative for visual disturbance. Respiratory: Positive for shortness of breath. Negative for cough, chest tightness and wheezing. Cardiovascular: Positive for chest pain. Negative for palpitations and leg swelling. Gastrointestinal: Negative for abdominal pain, constipation and vomiting. Endocrine: Negative for cold intolerance and heat intolerance. Musculoskeletal: Negative for back pain, joint swelling, myalgias and neck pain. Neurological: Negative for dizziness, seizures, syncope, speech difficulty, weakness, light-headedness, numbness and headaches. Psychiatric/Behavioral : Negative for behavioral problems and suicidal ideas. The patient is not nervous/anxious. All other systems reviewed and are negative. PHYSICAL EXAMINATION: BP 117/80 Pulse 95 Ht 5' 0 (1.52m) Wt 222 lb (100.7kg) SpO2 91% BMI 43.36 kg/(m2). Physical Exam Constitutional: Appearance: (more content not included)... Normal [facility] XR SPINE THORACIC MINIMUM 4 VIEWSon 06-19-2024 XR SPINE THORACIC MINIMUM 4 VIEWS ORIGINAL EXAMINATION: 3 XRAY VIEWS OF THE THORACIC SPINE 06/18/2024 11:33 am COMPARISON: CT chest on 02/03/2024. chest x-ray on 09/11/2023 HISTORY: ORDERING SYSTEM PROVIDED HISTORY: Reason for Exam: THORACIC DDD FINDINGS: The thoracic spine alignment is remarkable for mild dextroconvex curvature in the lower thoracic spine, unchanged from prior exams. There is moderate degenerative disc disease in the lower thoracic spine and mild degenerative disc disease in mid and upper portions of the thoracic spine. Chronic mild anterior compression of T11 and T12 is unchanged. Other vertebral bodies are normal in height. Visible portions of the posterior elements and ribs are intact. Instrumented fusion in lumbar spine is partly included on this exam. There is moderate size hiatal hernia in the retrocardiac region. IMPRESSION: 1. Moderate thoracic spondylosis. 2. Chronic mild anterior compression of T11 and T12. 3. No acute findings. Interpreted by: Huey Snow MD Preliminary Report By: Huey Snow MD Electronically signed By Huey Snow MD Dictated Date: 06/19/2024 4:46:08 AM Prelim Date: 06/19/2024 4:49:52 AM Sign Date: 06/19/2024 4:49:52 AM Ordering Provider: ANKITA Greer 03-12-2024 IVETTE Telephone ([facility]) EMPERATRIZ GHOSH ([id number]) 1950 F Date Time Provider Department 03/12/24 MAHAMED CARDONA During your visit today, we recorded the following information about you: Hannah Robles 03/12/2024 3:08 PM Signed Received a referral from [facility] the office of Dr. Ann. Patient is referred for CAD. Hannah Robles 03/18/2024 8:12 AM Signed New Patient Referral Requesting- Dr. Dulce Ghosh : 1950 Reason- CAD Records Scanned In Emily Dobbins 03/18/2024 8:20 AM Signed Scheduled and confirmed with patient Emily Dobbins Allergies As of Date: 03/12/2024 (No Known Allergies) Date Reviewed: 12/18/2023 Reviewed by: Vinayak Natarajan, RN - Fully Assessed Reason for Visit: Appointment [186] Prescriptions as of 03/18/2024 - morphine (PF) 5 mg/mL in NaCl 0.9% 20 mL PF MORPHINE 5 MG/ML SIMPLE CONTINUOUS RATE 0.8636 mg/ day PTM 0.0799 mg every 4 hours (max 6 doses per day) Total daily dose 1.3397mg - gabapentin (NEURONTIN) 800 mg tablet Take 1 tablet by mouth three times a day for 120 days. - Acetaminophen 500 mg cap Take 1,000 mg by mouth two times a day as needed. - ascorbic acid, vitamin C, (VITAMIN C) 500 mg tablet Take 500 mg by mouth once daily. - famotidine (PEPCID) 20 mg tablet Take 20 mg by mouth daily at bedtime. - calcium carbonate (CALTRATE) 600 mg calcium (1,500 mg) tab Take by mouth every 24 hours. - omeprazole (PRILOSEC) 40 mg capsule take 1 capsule by mouth every day before a meal - ferrous sulfate (IRON) 325 mg (65 mg iron) tablet Take 325 mg by mouth. - lidocaine-prilocaine (EMLA) 2.5-2.5 % cream Apply to affected area as needed. 1-2 grams to affected area TID PRN - dorzolamide-timolol (COSOPT) 22.3-6.8 mg/mL ophthalmic solution INSTILL 1 DROP IN LEFT EYE TWICE DAILY - cholecalciferol (VITAMIN D3) 5,000 unit tab Take 2,000 Units by mouth once daily. Last dose 09/26/22 - Lactobac no.41/Bifidobact no.7 (PROBIOTIC-10 ORAL) Take 1 tablet by mouth every morning. - tolterodine ER (DETROL LA) 4 mg 24 hr capsule Take 4 mg by mouth every morning. - Zinc 50 mg tab as needed. - latanoprost (XALATAN) 0.005 % ophthalmic solution Use 1 Drop in both eyes daily at bedtime. - lisinopril-hydroCHLORO thiazide (PRINZIDE, ZESTORETIC) 20-25 mg per tablet Take 1 tablet by mouth every morning. - simvastatin (ZOCOR) 20 mg tablet Take 20 mg by mouth daily at bedtime. - brimonidine (ALPHAGAN) 0.2 % ophthalmic solution Use 1 Drop in the left eye twice daily. GLAUCOMA - cyclobenzaprine (FLEXERIL) 10 mg tablet Take 10 mg by mouth three times daily as needed for muscle spasm. - aspirin, enteric coated (ASPIRIN, ENTERIC COATED) 81 mg EC tablet Take 81 mg by mouth every morning. IS GOING TO CHECK WITH SURGEON AND PCP ABOUT WHEN NEEDS TO STOP ASA - multivit with minerals/lutein (MULTIVITAMIN 50 PLUS ORAL) Last dose 09/26/22 - folic acid 800 mcg tablet Take 800 mcg by mouth every morning. FROM PCP BLOOD NOT CLOT NORMAL PERSON Problem List As Of Date 03/12/2024 Noted Resolved Other chronic pain [G89.29] 08/23/2015 Myofascial pain syndrome [M79.18] 03/11/2022 Radiculitis, thoracic [M54.14] 03/11/2022 Acute arthropathy [M12.9] 03/11/2022 Lumbar postlaminectomy syndrome [M96.1] 08/16/2022 Lumbar radiculopathy [M54.16] 08/23/2015 DDD (degenerative disc disease), lumbar [M51.36]08/16/2022 Degeneration of lumbar intervertebral disc [M51*09/05/2022 Obesity, Class III, BMI >= 40 [E66.01] 09/05/2022 Encounter for long-term (current) use of medica*02/15/2017 Encounter for other general examination [Z00.8] 10/04/2021 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] 08/23/2015 Gastroesophageal reflux disease [K21.9] 10/02/2022 Generalized osteoarthritis [M15.9] 08/23/2015 Glaucoma [H40.9] 10/02/2022 Hiatal hernia [K44.9] 10/02/2022 History of hip replacement, total, left [Z96.64*08/23/2015 Hyperlipidemia [E78.5] 10/02/2022 Knee pain, left [M25.562] 04/17/2017 Leg length discrepancy [M21.70] 12/11/2021 Morbid obesity (HCC) [E66.01] 08/23/2015 LINDY (obstructive sleep apnea) [G47.33] 06/06/2022 Sleep apnea [G47.30] 10/02/2022 Osteoarthritis of hip [M16.9] 11/21/2015 Pain in left hip [M25.552] 08/23/2015 Postoperative back pain [G89.18, M54.9] 02/15/2022 Sacroiliac joint dysfunction of both sides [M53*08/23/2015 Arthritis [M19.90] 10/02/2022 Postlaminectomy syndrome, lumbar region [M96.1] 11/21/2015 Chronic pain syndrome [G89.4] 02/15/2017 Arthropathy of thoracic facet joint [M47.814] 12/19/2017 Degeneration of intervertebral disc of thoracic*12/19/2017 Lumbar degenerative disc disease [M51.36] 08/23/2015 Lumbar facet arthropathy [M47.816] 08/23/2015 Lumbar spondylosis [M47.816] 08/10/2021 Thoracic radiculopathy [M54.14] 12/19/2017 Intervertebral disc disorder with radiculopathy*02/16/20 (more content not included)... [facility] 02-19-2024 [facility]) EMPERATRIZ GHOSH ([id number]) 1950 F Date Time Provider Department 02/19/24 JACI NIXON [facility] During your visit today, we recorded the following information about you: Jaci Nixon APRN.CNP 02/19/2024 7:09 AM Signed Please call the pt and get her an appt with Maynor [facility]. Thank you Jaci Nixon APRN.CNP 02/19/2024 10:08 AM Signed Noted and thank you. 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 - Acetaminophen 500 mg cap Take 1,000 mg by mouth two times a day as needed. - ascorbic acid, vitamin C, (VITAMIN C) 500 mg tablet Take 500 mg by mouth once daily. - famotidine (PEPCID) 20 mg tablet Take 20 mg by mouth daily at bedtime. - calcium carbonate (CALTRATE) 600 mg calcium (1,500 mg) tab Take by mouth every 24 hours. - omeprazole (PRILOSEC) 40 mg capsule take 1 capsule by mouth every day before a meal - ferrous sulfate (IRON) 325 mg (65 mg iron) tablet Take 325 mg by mouth. - lidocaine-prilocaine (EMLA) 2.5-2.5 % cream Apply to affected area as needed. 1-2 grams to affected area TID PRN - dorzolamide-timolol (COSOPT) 22.3-6.8 mg/mL ophthalmic solution INSTILL 1 DROP IN LEFT EYE TWICE DAILY - cholecalciferol (VITAMIN D3) 5,000 unit tab Take 2,000 Units by mouth once daily. Last dose 09/26/22 - Lactobac no.41/Bifidobact no.7 (PROBIOTIC-10 ORAL) Take 1 tablet by mouth every morning. - tolterodine ER (DETROL LA) 4 mg 24 hr capsule Take 4 mg by mouth every morning. - Zinc 50 mg tab as needed. - latanoprost (XALATAN) 0.005 % ophthalmic solution Use 1 Drop in both eyes daily at bedtime. - lisinopril-hydroCHLORO thiazide (PRINZIDE, ZESTORETIC) 20-25 mg per tablet Take 1 tablet by mouth every morning. - simvastatin (ZOCOR) 20 mg tablet Take 20 mg by mouth daily at bedtime. - brimonidine (ALPHAGAN) 0.2 % ophthalmic solution Use 1 Drop in the left eye twice daily. GLAUCOMA - cyclobenzaprine (FLEXERIL) 10 mg tablet Take 10 mg by mouth three times daily as needed for muscle spasm. - aspirin, enteric coated (ASPIRIN, ENTERIC COATED) 81 mg EC tablet Take 81 mg by mouth every morning. IS GOING TO CHECK WITH SURGEON AND PCP ABOUT WHEN NEEDS TO STOP ASA - multivit with minerals/lutein (MULTIVITAMIN 50 PLUS ORAL) Last dose 09/26/22 - folic acid 800 mcg tablet Take 800 mcg by mouth every morning. FROM PCP BLOOD NOT CLOT NORMAL PERSON Problem List As Of Date 02/19/2024 Noted Resolved Other chronic pain [G89.29] 08/23/2015 Myofascial pain syndrome [M79.18] 03/11/2022 Radiculitis, thoracic [M54.14] 03/11/2022 Acute arthropathy [M12.9] 03/11/2022 Lumbar postlaminectomy syndrome [M96.1] 08/16/2022 Lumbar radiculopathy [M54.16] 08/23/2015 DDD (degenerative disc disease), lumbar [M51.36]08/16/2022 Degeneration of lumbar intervertebral disc [M51*09/05/2022 Obesity, Class III, BMI >= 40 [E66.01] 09/05/2022 Encounter for long-term (current) use of medica*02/15/2017 Encounter for other general examination [Z00.8] 10/04/2021 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] 08/23/2015 Gastroesophageal reflux disease [K21.9] 10/02/2022 Generalized osteoarthritis [M15.9] 08/23/2015 Glaucoma [H40.9] 10/02/2022 Hiatal hernia [K44.9] 10/02/2022 History of hip replacement, total, left [Z96.64*08/23/2015 Hyperlipidemia [E78.5] 10/02/2022 Knee pain, left [M25.562] 04/17/2017 Leg length discrepancy [M21.70] 12/11/2021 Morbid obesity (HCC) [E66.01] 08/23/2015 LINDY (obstructive sleep apnea) [G47.33] 06/06/2022 Sleep apnea [G47.30] 10/02/2022 Osteoarthritis of hip [M16.9] 11/21/2015 Pain in left hip [M25.552] 08/23/2015 Postoperative back pain [G89.18, M54.9] 02/15/2022 Sacroiliac joint dysfunction of both sides [M53*08/23/2015 Arthritis [M19.90] 10/02/2022 Postlaminectomy syndrome, lumbar region [M96.1] 11/21/2015 Chronic pain syndrome [G89.4] 02/15/2017 Arthropathy of thoracic facet joint [M47.814] 12/19/2017 Degeneration of intervertebral disc of thoracic*12/19/2017 Lumbar degenerative disc disease [M51.36] 08/23/2015 Lumbar facet arthropathy [M47.816] 08/23/2015 Lumbar spondylosis [M47.816] 08/10/2021 Thoracic radiculopathy [M54.14] 12/19/2017 Intervertebral disc disorder with radiculopathy*02/16/20 22 Low back pain [M54.50] 03/11/2022 Implantable intrathecal infusion pump present [*10/29/2022 History of arthroplasty [Z98.890 (ICD-10-CM)] [*10/29/2022 High risk medication use [Z79.899] 10/29/2022 Sacroiliitis (HCC) [M4 (more content not included)... [facility] CNPN Telephone ([facility]) EMPERATRIZ GHOSH ([id number]) 1950 F Date Time Provider Department 02/19/24 JACI NIXON [facility] During your visit today, we recorded the following information about you: Kaylene Driver MA 02/19/2024 10:03 AM Signed I called patient to get her an appointment scheduled with Maynor Robles at [facility], patient stated she is no longer with us that she is seeing Dr Lopez in [place]. Kaylene Driver MA February 19, 2024 10:02 AM Allergies As of Date: 02/19/2024 (No Known Allergies) Date Reviewed: 12/18/2023 Reviewed by: Vinayak Natarajan, RN - Fully Assessed Reason for Visit: Appointment [186] Prescriptions as of 02/19/2024 - morphine (PF) 5 mg/mL in NaCl 0.9% 20 mL PF MORPHINE 5 MG/ML SIMPLE CONTINUOUS RATE 0.8636 mg/ day PTM 0.0799 mg every 4 hours (max 6 doses per day) Total daily dose 1.3397mg - gabapentin (NEURONTIN) 800 mg tablet Take 1 tablet by mouth three times a day for 120 days. - Acetaminophen 500 mg cap Take 1,000 mg by mouth two times a day as needed. - ascorbic acid, vitamin C, (VITAMIN C) 500 mg tablet Take 500 mg by mouth once daily. - famotidine (PEPCID) 20 mg tablet Take 20 mg by mouth daily at bedtime. - calcium carbonate (CALTRATE) 600 mg calcium (1,500 mg) tab Take by mouth every 24 hours. - omeprazole (PRILOSEC) 40 mg capsule take 1 capsule by mouth every day before a meal - ferrous sulfate (IRON) 325 mg (65 mg iron) tablet Take 325 mg by mouth. - lidocaine-prilocaine (EMLA) 2.5-2.5 % cream Apply to affected area as needed. 1-2 grams to affected area TID PRN - dorzolamide-timolol (COSOPT) 22.3-6.8 mg/mL ophthalmic solution INSTILL 1 DROP IN LEFT EYE TWICE DAILY - cholecalciferol (VITAMIN D3) 5,000 unit tab Take 2,000 Units by mouth once daily. Last dose 09/26/22 - Lactobac no.41/Bifidobact no.7 (PROBIOTIC-10 ORAL) Take 1 tablet by mouth every morning. - tolterodine ER (DETROL LA) 4 mg 24 hr capsule Take 4 mg by mouth every morning. - Zinc 50 mg tab as needed. - latanoprost (XALATAN) 0.005 % ophthalmic solution Use 1 Drop in both eyes daily at bedtime. - lisinopril-hydroCHLORO thiazide (PRINZIDE, ZESTORETIC) 20-25 mg per tablet Take 1 tablet by mouth every morning. - simvastatin (ZOCOR) 20 mg tablet Take 20 mg by mouth daily at bedtime. - brimonidine (ALPHAGAN) 0.2 % ophthalmic solution Use 1 Drop in the left eye twice daily. GLAUCOMA - cyclobenzaprine (FLEXERIL) 10 mg tablet Take 10 mg by mouth three times daily as needed for muscle spasm. - aspirin, enteric coated (ASPIRIN, ENTERIC COATED) 81 mg EC tablet Take 81 mg by mouth every morning. IS GOING TO CHECK WITH SURGEON AND PCP ABOUT WHEN NEEDS TO STOP ASA - multivit with minerals/lutein (MULTIVITAMIN 50 PLUS ORAL) Last dose 09/26/22 - folic acid 800 mcg tablet Take 800 mcg by mouth every morning. FROM PCP BLOOD NOT CLOT NORMAL PERSON Problem List As Of Date 02/19/2024 Noted Resolved Other chronic pain [G89.29] 08/23/2015 Myofascial pain syndrome [M79.18] 03/11/2022 Radiculitis, thoracic [M54.14] 03/11/2022 Acute arthropathy [M12.9] 03/11/2022 Lumbar postlaminectomy syndrome [M96.1] 08/16/2022 Lumbar radiculopathy [M54.16] 08/23/2015 DDD (degenerative disc disease), lumbar [M51.36]08/16/2022 Degeneration of lumbar intervertebral disc [M51*09/05/2022 Obesity, Class III, BMI >= 40 [E66.01] 09/05/2022 Encounter for long-term (current) use of medica*02/15/2017 Encounter for other general examination [Z00.8] 10/04/2021 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] 08/23/2015 Gastroesophageal reflux disease [K21.9] 10/02/2022 Generalized osteoarthritis [M15.9] 08/23/2015 Glaucoma [H40.9] 10/02/2022 Hiatal hernia [K44.9] 10/02/2022 History of hip replacement, total, left [Z96.64*08/23/2015 Hyperlipidemia [E78.5] 10/02/2022 Knee pain, left [M25.562] 04/17/2017 Leg length discrepancy [M21.70] 12/11/2021 Morbid obesity (HCC) [E66.01] 08/23/2015 LINDY (obstructive sleep apnea) [G47.33] 06/06/2022 Sleep apnea [G47.30] 10/02/2022 Osteoarthritis of hip [M16.9] 11/21/2015 Pain in left hip [M25.552] 08/23/2015 Postoperative back pain [G89.18, M54.9] 02/15/2022 Sacroiliac joint dysfunction of both sides [M53*08/23/2015 Arthritis [M19.90] 10/02/2022 Postlaminectomy syndrome, lumbar region [M96.1] 11/21/2015 Chronic pain syndrome [G89.4] 02/15/2017 Arthropathy of thoracic facet joint [M47.814] 12/19/2017 Degeneration of intervertebral disc of thoracic*12/19/2017 Lumbar degenerative disc disease [M51.36] 08/23/2015 Lumbar facet arthropathy [M47.816] 08/23/2015 Lumbar spondylosis [M47.816] 08/10/2021 Thoracic radiculopathy [M54.14] 12/19/2017 Intervertebral disc disorder with radiculopathy*02/16/20 Low back pain [M54.50] 03/11/2022 Implantable intrathecal infusion pump present [*10/29/2022 History of arthroplasty [Z98.890 (ICD-10-CM)] [*10/29/2022 High risk medi (more content not included)... [facility] CNPN Telephone ([facility]) EMPERATRIZ GHOSH ([id number]) 1950 F Date Time Provider Department 02/19/24 NIXON, JACI Feliz SHARATH During your visit today, we recorded the following information about you: Allergies As of Date: 02/19/2024 (No Known Allergies) Date Reviewed: 12/18/2023 Reviewed by: Vinayak Natarajan, RN - Fully Assessed Prescriptions as of 02/19/2024 - morphine (PF) 5 mg/mL in NaCl 0.9% 20 mL PF MORPHINE 5 MG/ML SIMPLE CONTINUOUS RATE 0.8636 mg/ day PTM 0.0799 mg every 4 hours (max 6 doses per day) Total daily dose 1.3397mg - gabapentin (NEURONTIN) 800 mg tablet Take 1 tablet by mouth three times a day for 120 days. - Acetaminophen 500 mg cap Take 1,000 mg by mouth two times a day as needed. - ascorbic acid, vitamin C, (VITAMIN C) 500 mg tablet Take 500 mg by mouth once daily. - famotidine (PEPCID) 20 mg tablet Take 20 mg by mouth daily at bedtime. - calcium carbonate (CALTRATE) 600 mg calcium (1,500 mg) tab Take by mouth every 24 hours. - omeprazole (PRILOSEC) 40 mg capsule take 1 capsule by mouth every day before a meal - ferrous sulfate (IRON) 325 mg (65 mg iron) tablet Take 325 mg by mouth. - lidocaine-prilocaine (EMLA) 2.5-2.5 % cream Apply to affected area as needed. 1-2 grams to affected area TID PRN - dorzolamide-timolol (COSOPT) 22.3-6.8 mg/mL ophthalmic solution INSTILL 1 DROP IN LEFT EYE TWICE DAILY - cholecalciferol (VITAMIN D3) 5,000 unit tab Take 2,000 Units by mouth once daily. Last dose 09/26/22 - Lactobac no.41/Bifidobact no.7 (PROBIOTIC-10 ORAL) Take 1 tablet by mouth every morning. - tolterodine ER (DETROL LA) 4 mg 24 hr capsule Take 4 mg by mouth every morning. - Zinc 50 mg tab as needed. - latanoprost (XALATAN) 0.005 % ophthalmic solution Use 1 Drop in both eyes daily at bedtime. - lisinopril-hydroCHLORO thiazide (PRINZIDE, ZESTORETIC) 20-25 mg per tablet Take 1 tablet by mouth every morning. - simvastatin (ZOCOR) 20 mg tablet Take 20 mg by mouth daily at bedtime. - brimonidine (ALPHAGAN) 0.2 % ophthalmic solution Use 1 Drop in the left eye twice daily. GLAUCOMA - cyclobenzaprine (FLEXERIL) 10 mg tablet Take 10 mg by mouth three times daily as needed for muscle spasm. - aspirin, enteric coated (ASPIRIN, ENTERIC COATED) 81 mg EC tablet Take 81 mg by mouth every morning. IS GOING TO CHECK WITH SURGEON AND PCP ABOUT WHEN NEEDS TO STOP ASA - multivit with minerals/lutein (MULTIVITAMIN 50 PLUS ORAL) Last dose 09/26/22 - folic acid 800 mcg tablet Take 800 mcg by mouth every morning. FROM PCP BLOOD NOT CLOT NORMAL PERSON Problem List As Of Date 02/19/2024 Noted Resolved Other chronic pain [G89.29] 08/23/2015 Myofascial pain syndrome [M79.18] 03/11/2022 Radiculitis, thoracic [M54.14] 03/11/2022 Acute arthropathy [M12.9] 03/11/2022 Lumbar postlaminectomy syndrome [M96.1] 08/16/2022 Lumbar radiculopathy [M54.16] 08/23/2015 DDD (degenerative disc disease), lumbar [M51.36]08/16/2022 Degeneration of lumbar intervertebral disc [M51*09/05/2022 Obesity, Class III, BMI >= 40 [E66.01] 09/05/2022 Encounter for long-term (current) use of medica*02/15/2017 Encounter for other general examination [Z00.8] 10/04/2021 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] 08/23/2015 Gastroesophageal reflux disease [K21.9] 10/02/2022 Generalized osteoarthritis [M15.9] 08/23/2015 Glaucoma [H40.9] 10/02/2022 Hiatal hernia [K44.9] 10/02/2022 History of hip replacement, total, left [Z96.64*08/23/2015 Hyperlipidemia [E78.5] 10/02/2022 Knee pain, left [M25.562] 04/17/2017 Leg length discrepancy [M21.70] 12/11/2021 Morbid obesity (HCC) [E66.01] 08/23/2015 LINDY (obstructive sleep apnea) [G47.33] 06/06/2022 Sleep apnea [G47.30] 10/02/2022 Osteoarthritis of hip [M16.9] 11/21/2015 Pain in left hip [M25.552] 08/23/2015 Postoperative back pain [G89.18, M54.9] 02/15/2022 Sacroiliac joint dysfunction of both sides [M53*08/23/2015 Arthritis [M19.90] 10/02/2022 Postlaminectomy syndrome, lumbar region [M96.1] 11/21/2015 Chronic pain syndrome [G89.4] 02/15/2017 Arthropathy of thoracic facet joint [M47.814] 12/19/2017 Degeneration of intervertebral disc of thoracic*12/19/2017 Lumbar degenerative disc disease [M51.36] 08/23/2015 Lumbar facet arthropathy [M47.816] 08/23/2015 Lumbar spondylosis [M47.816] 08/10/2021 Thoracic radiculopathy [M54.14] 12/19/2017 Intervertebral disc disorder with radiculopathy*02/16/20 22 Low back pain [M54.50] 03/11/2022 Implantable intrathecal infusion pump present [*10/29/2022 History of arthroplasty [Z98.890 (ICD-10-CM)] [*10/29/2022 High risk medication use [Z79.899] 10/29/2022 Sacroiliitis (HCC) [M46.1] 07/31/2023 Carpal tunnel syndrome, bilateral [G56.03] 07/31/2023 Presence of left artificial knee joint [Z96.652]10/02/2023 12/23/2023 Weakness [R53.1] 10/02/2023 12/23/2023 Decreased range of motion of left knee [M25.662]10/02/2023 12/23/2023 E (more content not included)... [facility] XR Spine Lumbar and Sacrum G E 6 Viewson 02-19-2024 IMPRESSION: Postoperative and degenerative changes with intact hardware. Cable Stretcher And Tester: DARREN Transcribe Date/Time: Feb 19 2024 6:30A Dictated by : ALESSIO TRIMBLE MD This examination was interpreted and the report reviewed and electronically signed by: ALESSIO TRIMBLE MD on Feb 19 2024 6:31AM [facility] * * *Final Report* * * DATE OF EXAM: Feb 13 2024 11:50AM RMX 1447 - XR LUMBAR 6V AP/LAT/OBLS/FLEX/EX / PROCEDURE REASON: POSTLAMINECTOMY SYNDROME * * * * Physician Interpretation * * * * EXAMINATION / TECHNIQUE: XR LUMBAR 6V AP/LAT/OBLS/FLEX/EX HISTORY: CHRONIC LOWER CENTER-LINE BACK PAIN X 15 YR NKI POSTLAMINECTOMY SYNDROME COMPARISON: None. RESULT: Counting reference: Lumbosacral junction. For the purposes of this report, L4-5 is considered the level of the iliac crest and assume there are 5 lumbar-type vertebrae. Anatomic variant: None. There is intact hardware extending from L2 to L4 without evidence of loosening. Vertebral body heights are maintained. Minimal anterolisthesis L4 on L5. Severe multilevel lower thoracic and L1-L2 degenerative disc disease. Lower lumbar facet hypertrophy. Bilateral hip arthroplasties are noted. [facility] Provider, keny Hancock - 02/19/2024 * * *Final Report* * * DATE OF EXAM: Feb 13 2024 11:50AM RMX 1447 - XR LUMBAR 6V AP/LAT/OBLS/FLEX/EX / PROCEDURE REASON: POSTLAMINECTOMY SYNDROME * * * * Physician Interpretation * * * * EXAMINATION / TECHNIQUE: XR LUMBAR 6V AP/LAT/OBLS/FLEX/EX HISTORY: CHRONIC LOWER CENTER-LINE BACK PAIN X 15 YR NKI POSTLAMINECTOMY SYNDROME COMPARISON: None. RESULT: Counting reference: Lumbosacral junction. For the purposes of this report, L4-5 is considered the level of the iliac crest and assume there are 5 lumbar-type vertebrae. Anatomic variant: None. There is intact hardware extending from L2 to L4 without evidence of loosening. Vertebral body heights are maintained. Minimal anterolisthesis L4 on L5. Severe multilevel lower thoracic and L1-L2 degenerative disc disease. Lower lumbar facet hypertrophy. Bilateral hip arthroplasties are noted. IMPRESSION IMPRESSION: Postoperative and degenerative changes with intact hardware. Cable Stretcher And Tester: DARREN Transcribe Date/Time: Feb 19 2024 6:30A Dictated by : ALESSIO TRIMBLE MD This examination was interpreted and the report reviewed and electronically signed by: ALESSIO TRIMBLE MD on Feb 19 2024 6:31AM EST [facility] XR Spine Lumbar and Sacrum G E 6 ViewsOrdered By: [facility]cf Provider on 02-19-2024 [facility] XR LUMBAR 6V AP/LAT/OBLS/FLE X/EXon 02-13-2024 XR LUMBAR 6V AP/LAT/OBLS/FLEX/EX * * *Final Report* * * DATE OF EXAM: Feb 13 2024 11:50AM RMX 1447 - XR LUMBAR 6V AP/LAT/OBLS/FLEX/EX / PROCEDURE REASON: POSTLAMINECTOMY SYNDROME * * * * Physician Interpretation * * * * EXAMINATION / TECHNIQUE: XR LUMBAR 6V AP/LAT/OBLS/FLEX/EX HISTORY: CHRONIC LOWER CENTER-LINE BACK PAIN X 15 YR NKI POSTLAMINECTOMY SYNDROME COMPARISON: None. RESULT: Counting reference: Lumbosacral junction. For the purposes of this report, L4-5 is considered the level of the iliac crest and assume there are 5 lumbar-type vertebrae. Anatomic variant: None. There is intact hardware extending from L2 to L4 without evidence of loosening. Vertebral body heights are maintained. Minimal anterolisthesis L4 on L5. Severe multilevel lower thoracic and L1-L2 degenerative disc disease. Lower lumbar facet hypertrophy. Bilateral hip arthroplasties are noted. IMPRESSION: Postoperative and degenerative changes with intact hardware. Cable Stretcher And Tester: [facility] Transcribe Date/Time: Feb 19 2024 6:30A Dictated by : ALESSIO TRIMBLE MD This examination was interpreted and the report reviewed and electronically signed by: ALESSIO TRIMBLE MD on Feb 19 2024 6:31AM EST [id number] [facility] XR Spine Lumbar and Sacrum G E 6 Viewson 02-13-2024 Radiology Study observation (narrative) [facility] CT THORAX W/O CONTRASTon CT THORAX W/O CONTRAST ORIGINAL EXAMINATION: CT CHEST WITHOUT CONTRAST 02/03/2024 12:39 pm HISTORY: ORDERING SYSTEM PROVIDED HISTORY: Reason for Exam: Pneumonitis due to inhalation of food and vomit pt states sob, dr believes she is aspirating/inhaling food and/or vomit during her sleep per pt. TECHNIQUE: Multiple-row detector helical CT examination of the thorax without IV contrast. Axial, sagittal, and coronal reconstructed images. This exam was performed according to the departmental dose-optimization program which includes automated exposure control, adjustment of the mA and/or kV according to patient size and/or use of iterative reconstruction technique. COMPARISON: 07/25/2023, 03/27/2023 FINDINGS: The heart is normal in size. Severe coronary artery calcifications seen. No pericardial effusion. The great vessels are normal in caliber. There is no visible lymphadenopathy within the limits imposed by lack of IV contrast. A 2 mm left upper lobe nodule seen image 24, unchanged. A 3 mm left lower lobe nodule on image 44 is also unchanged. No pulmonary consolidation. No pneumothorax or pleural effusion. No endotracheal or endobronchial lesion identified. No aggressive osseous lesions identified. Multilevel degenerative changes identified in the spine. Partially visualized surgical changes seen of the spine. A large hiatal hernia noted. Duodenal diverticula seen. The abdomen is not evaluated in detail. IMPRESSION: Large hiatal hernia Unchanged lung nodules do not require surveillance Atherosclerosis with prominent coronary artery calcifications Interpreted by: Tomas Marrero MD Preliminary Report By: Tomas Marrero MD Electronically signed By Tomas Marrero MD Dictated Date: 02/03/2024 2:53:48 PM Prelim Date: 02/03/2024 2:58:29 PM Sign Date: 02/03/2024 2:58:29 PM Ordering Provider: EVERETT MCCULLOUGH [facility] ([place]) Zoey 12-31-2023 IVETTE Telephone (ADONAY) EMPERATRIZ GHOSH ([id number]) 1950 F Date Time Provider Department 12/31/23 MAYNOR ROBLES During your visit today, we recorded the following information about you: Maura Jarvis, RN 12/31/2023 1:44 PM Signed LM for pt to return call to update us on new pain pump provider. Referral to Dr Chase was faxed 12/15. Maura Jarvis RN December 31, 2023 1:44 PM Rosa Villanueva RN 01/02/2024 2:53 PM Signed Pt returned call to [facility]: Pt states that has not heard from Dr. Lopez. Pt given phone # for Dr. Lopez; pt states she will reach out to to his office to see if he is going to see her. She will let [facility] know response as well as to contact [facility] with any other updates, questons, or concerns. Rosa Villanueva RN January 02, 2024 2:52 PM Yue Ramirez RN 01/03/2024 10:44 AM Signed Pt called back. She has an apt with Dr Chase on 02/06/24. February apt with our office cancelled. Yue Ramirez RN January 03, 2024 10:44 AM Allergies As of Date: 12/31/2023 (No Known Allergies) Date Reviewed: 12/18/2023 Reviewed by: Vinayak Natarajan, RN - Fully Assessed Reason for Visit: pain pump referral [Other] Prescriptions as of 01/03/2024 - morphine (PF) 5 mg/mL in NaCl 0.9% 20 mL PF MORPHINE 5 MG/ML SIMPLE CONTINUOUS RATE 0.8636 mg/ day PTM 0.0799 mg every 4 hours (max 6 doses per day) Total daily dose 1.3397mg - gabapentin (NEURONTIN) 800 mg tablet Take 1 tablet by mouth three times a day for 120 days. - tiZANidine (ZANAFLEX) 4 mg tablet Take 1 tablet by mouth three times a day as needed. - Acetaminophen 500 mg cap Take 1,000 mg by mouth two times a day as needed. - ascorbic acid, vitamin C, (VITAMIN C) 500 mg tablet Take 500 mg by mouth once daily. - famotidine (PEPCID) 20 mg tablet Take 20 mg by mouth daily at bedtime. - calcium carbonate (CALTRATE) 600 mg calcium (1,500 mg) tab Take by mouth every 24 hours. - omeprazole (PRILOSEC) 40 mg capsule take 1 capsule by mouth every day before a meal - ferrous sulfate (IRON) 325 mg (65 mg iron) tablet Take 325 mg by mouth. - lidocaine-prilocaine (EMLA) 2.5-2.5 % cream Apply to affected area as needed. 1-2 grams to affected area TID PRN - dorzolamide-timolol (COSOPT) 22.3-6.8 mg/mL ophthalmic solution INSTILL 1 DROP IN LEFT EYE TWICE DAILY - cholecalciferol (VITAMIN D3) 5,000 unit tab Take 2,000 Units by mouth once daily. Last dose 09/26/22 - Lactobac no.41/Bifidobact no.7 (PROBIOTIC-10 ORAL) Take 1 tablet by mouth every morning. - tolterodine ER (DETROL LA) 4 mg 24 hr capsule Take 4 mg by mouth every morning. - Zinc 50 mg tab as needed. - latanoprost (XALATAN) 0.005 % ophthalmic solution Use 1 Drop in both eyes daily at bedtime. - lisinopril-hydroCHLORO thiazide (PRINZIDE, ZESTORETIC) 20-25 mg per tablet Take 1 tablet by mouth every morning. - simvastatin (ZOCOR) 20 mg tablet Take 20 mg by mouth daily at bedtime. - brimonidine (ALPHAGAN) 0.2 % ophthalmic solution Use 1 Drop in the left eye twice daily. GLAUCOMA - cyclobenzaprine (FLEXERIL) 10 mg tablet Take 10 mg by mouth three times daily as needed for muscle spasm. - aspirin, enteric coated (ASPIRIN, ENTERIC COATED) 81 mg EC tablet Take 81 mg by mouth every morning. IS GOING TO CHECK WITH SURGEON AND PCP ABOUT WHEN NEEDS TO STOP ASA - multivit with minerals/lutein (MULTIVITAMIN 50 PLUS ORAL) Last dose 09/26/22 - folic acid 800 mcg tablet Take 800 mcg by mouth every morning. FROM PCP BLOOD NOT CLOT NORMAL PERSON Problem List As Of Date 12/31/2023 Noted Resolved Other chronic pain [G89.29] 08/23/2015 Myofascial pain syndrome [M79.18] 03/11/2022 Radiculitis, thoracic [M54.14] 03/11/2022 Acute arthropathy [M12.9] 03/11/2022 Lumbar postlaminectomy syndrome [M96.1] 08/16/2022 Lumbar radiculopathy [M54.16] 08/23/2015 DDD (degenerative disc disease), lumbar [M51.36]08/16/2022 Degeneration of lumbar intervertebral disc [M51*09/05/2022 Obesity, Class III, BMI >= 40 [E66.01] 09/05/2022 Encounter for long-term (current) use of medica*02/15/2017 Encounter for other general examination [Z00.8] 10/04/2021 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] 08/23/2015 Gastroesophageal reflux disease [K21.9] 10/02/2022 Generalized osteoarthritis [M15.9] 08/23/2015 Glaucoma [H40.9] 10/02/2022 Hiatal hernia [K44.9] 10/02/2022 History of hip replacement, total, left [Z96.64*08/23/2015 Hyperlipidemia [E78.5] 10/02/2022 Knee pain, left [M25.562] 04/17/2017 Leg length discrepancy [M21.70] 12/11/2021 Morbid obesity (HCC) [E66.01] 08/23/2015 LINDY (obstructive sleep apnea) [G47.33] 06/06/2022 Sleep apnea [G47.30] 10/02/2022 Osteoarthritis of hip [M16.9] 11/21/2015 Pain in left hip [M25.552] 08/23/2015 Postoperative back pain [G89.18, M54.9] 02/15/2022 Sacroiliac joint dysfunction of both sides [M53*08/23/2015 Arthritis [M19.90] 10/02/2022 Postlaminectomy syndrome, lumbar region [M96.1] (more content not included)... [facility] CNTHERAPYon 12-23-2023 CNTHERAPY OT/PT/Speech Visit ([facility]) EMPERATRIZ GHOSH ([id number]) 1950 F Date Time Provider Department 12/23/23 9:30 AM LAURA SHAFFER [facility] [[email or web address]] Date Time Provider Department Center 12/23/2023 9:30 AM [id number], MICHEL*[facility] M Reason for Visit: PT Discharge [752] Primary Visit Diagnosis:Decreased range of motion of left knee [M25.662] Other Visit Diagnoses:Presence of left artificial knee joint [Z96.652] Weakness [R53.1] Allergies As of Date: 12/23/2023 (No Known Allergies) Date Reviewed: 12/18/2023 Reviewed by: Vinayak Natarajan, RN - Fully Assessed Prescriptions as of 12/23/2023 - morphine (PF) 5 mg/mL in NaCl 0.9% 20 mL PF MORPHINE 5 MG/ML SIMPLE CONTINUOUS RATE 0.8636 mg/ day PTM 0.0799 mg every 4 hours (max 6 doses per day) Total daily dose 1.3397mg - gabapentin (NEURONTIN) 800 mg tablet Take 1 tablet by mouth three times a day for 120 days. - tiZANidine (ZANAFLEX) 4 mg tablet Take 1 tablet by mouth three times a day as needed. - Acetaminophen 500 mg cap Take 1,000 mg by mouth two times a day as needed. - ascorbic acid, vitamin C, (VITAMIN C) 500 mg tablet Take 500 mg by mouth once daily. - famotidine (PEPCID) 20 mg tablet Take 20 mg by mouth daily at bedtime. - calcium carbonate (CALTRATE) 600 mg calcium (1,500 mg) tab Take by mouth every 24 hours. - omeprazole (PRILOSEC) 40 mg capsule take 1 capsule by mouth every day before a meal - ferrous sulfate (IRON) 325 mg (65 mg iron) tablet Take 325 mg by mouth. - lidocaine-prilocaine (EMLA) 2.5-2.5 % cream Apply to affected area as needed. 1-2 grams to affected area TID PRN - dorzolamide-timolol (COSOPT) 22.3-6.8 mg/mL ophthalmic solution INSTILL 1 DROP IN LEFT EYE TWICE DAILY - cholecalciferol (VITAMIN D3) 5,000 unit tab Take 2,000 Units by mouth once daily. Last dose 09/26/22 - Lactobac no.41/Bifidobact no.7 (PROBIOTIC-10 ORAL) Take 1 tablet by mouth every morning. - tolterodine ER (DETROL LA) 4 mg 24 hr capsule Take 4 mg by mouth every morning. - Zinc 50 mg tab as needed. - latanoprost (XALATAN) 0.005 % ophthalmic solution Use 1 Drop in both eyes daily at bedtime. - lisinopril-hydroCHLORO thiazide (PRINZIDE, ZESTORETIC) 20-25 mg per tablet Take 1 tablet by mouth every morning. - simvastatin (ZOCOR) 20 mg tablet Take 20 mg by mouth daily at bedtime. - brimonidine (ALPHAGAN) 0.2 % ophthalmic solution Use 1 Drop in the left eye twice daily. GLAUCOMA - cyclobenzaprine (FLEXERIL) 10 mg tablet Take 10 mg by mouth three times daily as needed for muscle spasm. - aspirin, enteric coated (ASPIRIN, ENTERIC COATED) 81 mg EC tablet Take 81 mg by mouth every morning. IS GOING TO CHECK WITH SURGEON AND PCP ABOUT WHEN NEEDS TO STOP ASA - multivit with minerals/lutein (MULTIVITAMIN 50 PLUS ORAL) Last dose 09/26/22 - folic acid 800 mcg tablet Take 800 mcg by mouth every morning. FROM PCP BLOOD NOT CLOT NORMAL PERSON Clinical report posted in error Letter Text Letter Text Normal [facility] CNOVon 12-18-2023 CNOV Office Visit (PAMMJK ) EMPERATRIZ GHOSH ([id number]) 1950 F Date Time Provider Department 12/18/23 10:00 AM MAYNOR ROBLES PAMMJK During your visit today, we recorded the following information about you: Temperature Pulse Respiration Blood pressure 97.2 degrees 104/minute 18/minute 92/59 Maynor Robles PA-C 12/18/2023 10:40 AM Signed This note was created using [employer]. Subjective Emperatriz Ghosh is a 73 year old female. The patient primarily being seen for back pain Patient was last seen on: 09/16/23 At that time, the treatment plan was: see notes Current Meds: Morphine pump/ Cream Gabapentin AM Tizanidine prn Efficacy: some Side effects: drowsiness TENS unit: yes How often used: prn Benefit: Physical Therapy: Last UDS: 07/31/23 Last injection: 06/27/23-b/l SI OARRS reviewed At the present time, the patient reports some benefit with her present analgesic therapy. She has some issues with drowsiness with the tizanidine. Since her previous visit, she had a left knee replacement done 09/30/23. She states it went well. Otherwise, she has nothing further to discuss at this time. 12/11/2023 12/18/2023 INTAKE PAIN ASSESSMENT Are you having pain associated with your visit today? Yes, Provider notified Pain Scales Verbal (Numeric Rating or Visual Analog Scale) Pain Level 1 5 Pain Location Back Description Pressure;Tightness;Ach ing Frequency Continuous Intervention/Comfort measure Medication;Relaxation; Heat HPI 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 Back pain Essential hypertension HIGH CHOL GERD (gastroesophageal reflux disease) Hiatal hernia High cholesterol Incontinence of urine Joint pain Sleep apnea mild sleep apnea- no cpap used Wears glasses PAST SURGICAL HISTORY Procedure Laterality Date BLADDER SURGERY HX REPAIR AND LIFT CARPAL TUNNEL RIGHT WRIST Right 02/2023 HYSTERECTOMY HX VAGINAL INTRATHECAL PUMP PLACEMENT 09/28/2022 ORTHOPEDICS SURGERY HX HIP REPLACED TOTAL KNEE REPLACEMENT Right RIGHT TOTAL KNEE REPLACED Social History Tobacco Use Smoking status: Never Passive exposure: Never Smokeless tobacco: Never Substance Use Topics Alcohol use: Not Currently Drug use: Not Currently Review of Systems Constitutional: Negative for fever and unexpected weight change. Musculoskeletal: + back pain, joint pain, stiffness, and arthritis Neurological: Positive for difficulty walking Objective BP 92/59 (BP Site: Left Arm, BP Position: Sitting, BP Cuff Size: Large Adult) Pulse 104 Temp 36.2 ?C (97.2 ?F) (Temporal) Resp 18 LMP (LMP Unknown) SpO2 94% Physical Exam Vitals and nursing note reviewed. Constitutional: Appearance: Normal appearance. She is well-developed and well-groomed. She is obese. HENT: Head: Normocephalic and atraumatic. Right Ear: Hearing normal. Left Ear: Hearing normal. Eyes: Conjunctiva/sclera: Conjunctivae normal. Comments: Wearing glasses Musculoskeletal: Comments: Patient walks using a cane. There is tenderness noted int he lumbar region and over the SI joints bilaterally. + FABERs, compression, and distraction tests noted. She has spasms noted in the paraspinal muscles. Strength is 5/5 throughout. Sensation is intact to light touch throughout. SLR is negative. Neurological: Mental Status: She is alert and oriented to person, place, and time. Psychiatric: Attention and Perception: Attention and perception normal. Mood and Affect: Mood and affect normal. Speech: Speech normal. Behavior: Behavior normal. Behavior is cooperative. Thought Content: Thought content normal. Judgment: Judgment normal. Assessment and Plan ASSESSMENT/PLAN: 1. Lumbar postlaminectomy syndrome - ICD9: 722.83, ICD10: M96.1 (primary diagnosis) The OARRS report has been reviewed and is consistent with the patients medical history and medication intake. The patient will continue with her intrathecal morphine pump and PTM dosing. Continue with the gabapentin 800 mg three times a day, tizanidine 4 mg 1/2-1 tab up to three times a day as needed, and compounded cream. Cut the tizanidine in half to help with drowsiness. She will continue using her TENS unit. Try using this more regularly around the back. Continue with core strengthening and range of motion exercises. Weight reduction. FU in the office in [address] Chase regarding the intrathecal pump management due to Dr. Andrews leaving 02/26/24. The referral has been sent. If you are able to get in with him prior to your next visit with us, call and cancel your appointment. 2. Lumbar spondylosis - ICD9: 721.3, ICD10: M47.816 3. Sacroiliitis (HCC) - ICD9: 720.2, ICD10: M46.1 4. Lumbar radiculopathy - ICD9: 724.4, ICD10: M54.16 5. Radi (more content not included)... [facility] CNTHERAPYon 12-18-2023 CNTHERAPY OT/PT/Speech Visit ([facility] [[email or web address]]) EMPERATRIZ GHOSH ([id number]) 1950 F Date Time Provider Department 12/18/23 1:30 PM DWAIN KOLB [facility] [[email or web address]] Date Time Provider Department Center 12/18/2023 1:30 PM [id number], SHEILA*[facility] M Reason for Visit: Physical Therapy [503] Primary Visit Diagnosis:Decreased range of motion of left knee [M25.662] Other Visit Diagnoses:Presence of left artificial knee joint [Z96.652] Weakness [R53.1] Allergies As of Date: 12/18/2023 (No Known Allergies) Date Reviewed: 12/18/2023 Reviewed by: Vinayak Natarajan, RN - Fully Assessed Prescriptions as of 12/18/2023 - morphine (PF) 5 mg/mL in NaCl 0.9% 20 mL PF MORPHINE 5 MG/ML SIMPLE CONTINUOUS RATE 0.8636 mg/ day PTM 0.0799 mg every 4 hours (max 6 doses per day) Total daily dose 1.3397mg - gabapentin (NEURONTIN) 800 mg tablet Take 1 tablet by mouth three times a day for 120 days. - tiZANidine (ZANAFLEX) 4 mg tablet Take 1 tablet by mouth three times a day as needed. - Acetaminophen 500 mg cap Take 1,000 mg by mouth two times a day as needed. - ascorbic acid, vitamin C, (VITAMIN C) 500 mg tablet Take 500 mg by mouth once daily. - famotidine (PEPCID) 20 mg tablet Take 20 mg by mouth daily at bedtime. - calcium carbonate (CALTRATE) 600 mg calcium (1,500 mg) tab Take by mouth every 24 hours. - omeprazole (PRILOSEC) 40 mg capsule take 1 capsule by mouth every day before a meal - ferrous sulfate (IRON) 325 mg (65 mg iron) tablet Take 325 mg by mouth. - lidocaine-prilocaine (EMLA) 2.5-2.5 % cream Apply to affected area as needed. 1-2 grams to affected area TID PRN - dorzolamide-timolol (COSOPT) 22.3-6.8 mg/mL ophthalmic solution INSTILL 1 DROP IN LEFT EYE TWICE DAILY - cholecalciferol (VITAMIN D3) 5,000 unit tab Take 2,000 Units by mouth once daily. Last dose 09/26/22 - Lactobac no.41/Bifidobact no.7 (PROBIOTIC-10 ORAL) Take 1 tablet by mouth every morning. - tolterodine ER (DETROL LA) 4 mg 24 hr capsule Take 4 mg by mouth every morning. - Zinc 50 mg tab as needed. - latanoprost (XALATAN) 0.005 % ophthalmic solution Use 1 Drop in both eyes daily at bedtime. - lisinopril-hydroCHLORO thiazide (PRINZIDE, ZESTORETIC) 20-25 mg per tablet Take 1 tablet by mouth every morning. - simvastatin (ZOCOR) 20 mg tablet Take 20 mg by mouth daily at bedtime. - brimonidine (ALPHAGAN) 0.2 % ophthalmic solution Use 1 Drop in the left eye twice daily. GLAUCOMA - cyclobenzaprine (FLEXERIL) 10 mg tablet Take 10 mg by mouth three times daily as needed for muscle spasm. - aspirin, enteric coated (ASPIRIN, ENTERIC COATED) 81 mg EC tablet Take 81 mg by mouth every morning. IS GOING TO CHECK WITH SURGEON AND PCP ABOUT WHEN NEEDS TO STOP ASA - multivit with minerals/lutein (MULTIVITAMIN 50 PLUS ORAL) Last dose 09/26/22 - folic acid 800 mcg tablet Take 800 mcg by mouth every morning. FROM PCP BLOOD NOT CLOT NORMAL PERSON [facility] CNCOon 12-17-[address] [facility] CNPNon 12-16-2023 CNPN Telephone (ADONAY) TOMMYEMPERATRIZ ([id number]) 1950 F Date Time Provider Department 12/16/23 MAYNOR ROBLES During your visit today, we recorded the following information about you: Maura Jarvis RN 12/16/2023 10:49 AM Signed I reached out to Dr Chase's office and was told that he is accepting new patients at this time. I called patient and she is willing to go see Dr Chase. Please send referral and we will follow up with patient. Thanks, Maynor Stewart PA-C 12/16/2023 12:23 PM Signed Order is signed. Maura Jarvis RN 12/17/2023 1:17 PM Signed Referral sent through [employer] to Dr Chase. Maura Jarvis RN December 17, 2023 1:17 PM Allergies As of Date: 12/16/2023 (No Known Allergies) Date Reviewed: 09/16/2023 Reviewed by: Boubacar Andrews MD - Fully Assessed Reason for Visit: IT pump referral [Other] Primary Visit Diagnosis:Implantable intrathecal infusion pump present [Z96.89] Other Visit Diagnoses:Other chronic pain [G89.29] Diffuse myofascial pain syndrome [M79.18] Order(s):CONSULT TO NON-[facility] FACILITY [[id number]] Order #: [id number] Prescriptions as of 12/17/2023 - morphine (PF) 5 mg/mL in NaCl 0.9% 20 mL PF MORPHINE 5 MG/ML SIMPLE CONTINUOUS RATE 0.8636 mg/ day PTM 0.0799 mg every 4 hours (max 6 doses per day) Total daily dose 1.3397mg - gabapentin (NEURONTIN) 800 mg tablet Take 1 tablet by mouth three times a day for 120 days. - tiZANidine (ZANAFLEX) 4 mg tablet Take 1 tablet by mouth three times a day as needed. - Acetaminophen 500 mg cap Take 1,000 mg by mouth two times a day as needed. - ascorbic acid, vitamin C, (VITAMIN C) 500 mg tablet Take 500 mg by mouth once daily. - famotidine (PEPCID) 20 mg tablet Take 20 mg by mouth daily at bedtime. - calcium carbonate (CALTRATE) 600 mg calcium (1,500 mg) tab Take by mouth every 24 hours. - omeprazole (PRILOSEC) 40 mg capsule take 1 capsule by mouth every day before a meal - ferrous sulfate (IRON) 325 mg (65 mg iron) tablet Take 325 mg by mouth. - lidocaine-prilocaine (EMLA) 2.5-2.5 % cream Apply to affected area as needed. 1-2 grams to affected area TID PRN - dorzolamide-timolol (COSOPT) 22.3-6.8 mg/mL ophthalmic solution INSTILL 1 DROP IN LEFT EYE TWICE DAILY - cholecalciferol (VITAMIN D3) 5,000 unit tab Take 2,000 Units by mouth once daily. Last dose 09/26/22 - Lactobac no.41/Bifidobact no.7 (PROBIOTIC-10 ORAL) Take 1 tablet by mouth every morning. - tolterodine ER (DETROL LA) 4 mg 24 hr capsule Take 4 mg by mouth every morning. - Zinc 50 mg tab as needed. - latanoprost (XALATAN) 0.005 % ophthalmic solution Use 1 Drop in both eyes daily at bedtime. - lisinopril-hydroCHLORO thiazide (PRINZIDE, ZESTORETIC) 20-25 mg per tablet Take 1 tablet by mouth every morning. - simvastatin (ZOCOR) 20 mg tablet Take 20 mg by mouth daily at bedtime. - brimonidine (ALPHAGAN) 0.2 % ophthalmic solution Use 1 Drop in the left eye twice daily. GLAUCOMA - cyclobenzaprine (FLEXERIL) 10 mg tablet Take 10 mg by mouth three times daily as needed for muscle spasm. - aspirin, enteric coated (ASPIRIN, ENTERIC COATED) 81 mg EC tablet Take 81 mg by mouth every morning. IS GOING TO CHECK WITH SURGEON AND PCP ABOUT WHEN NEEDS TO STOP ASA - multivit with minerals/lutein (MULTIVITAMIN 50 PLUS ORAL) Last dose 09/26/22 - folic acid 800 mcg tablet Take 800 mcg by mouth every morning. FROM PCP BLOOD NOT CLOT NORMAL PERSON Problem List As Of Date 12/16/2023 Noted Resolved Other chronic pain [G89.29] 08/23/2015 Myofascial pain syndrome [M79.18] 03/11/2022 Radiculitis, thoracic [M54.14] 03/11/2022 Acute arthropathy [M12.9] 03/11/2022 Lumbar postlaminectomy syndrome [M96.1] 08/16/2022 Lumbar radiculopathy [M54.16] 08/23/2015 DDD (degenerative disc disease), lumbar [M51.36]08/16/2022 Degeneration of lumbar intervertebral disc [M51*09/05/2022 Obesity, Class III, BMI >= 40 [E66.01] 09/05/2022 Encounter for long-term (current) use of medica*02/15/2017 Encounter for other general examination [Z00.8] 10/04/2021 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] 08/23/2015 Gastroesophageal reflux disease [K21.9] 10/02/2022 Generalized osteoarthritis [M15.9] 08/23/2015 Glaucoma [H40.9] 10/02/2022 Hiatal hernia [K44.9] 10/02/2022 History of hip replacement, total, left [Z96.64*08/23/2015 Hyperlipidemia [E78.5] 10/02/2022 Knee pain, left [M25.562] 04/17/2017 Leg length discrepancy [M21.70] 12/11/2021 Morbid obesity (HCC) [E66.01] 08/23/2015 LINDY (obstructive sleep apnea) [G47.33] 06/06/2022 Sleep apnea [G47.30] 10/02/2022 Osteoarthritis of hip [M16.9] 11/21/2015 Pain in left hip [M25.552] 08/23/2015 Postoperative back pain [G89.18, M54.9] 02/15/2022 Sacroiliac joint dysfunction of both sides [M53*08/23/2015 Arthritis [M19.90] 10/02/2022 Postlaminectomy syndrome, lumbar region [M96.1] 11/21/2015 Chronic pain syn (more content not included)... [facility] CNTHERAPYon 12-11-2023 CNTHERAPY OT/PT/Speech Visit ([facility] [[email or web address]]) EMPERATRIZ GHOSH ([id number]) 1950 F Date Time Provider Department 12/11/23 10:45 AM DWAIN KOLB [facility] [[email or web address]] Date Time Provider Department Center 12/11/2023 10:45 AM [id number] Reason for Visit: Physical Therapy [503] Primary Visit Diagnosis:Decreased range of motion of left knee [M25.662] Other Visit Diagnoses:Presence of left artificial knee joint [Z96.652] Weakness [R53.1] Allergies As of Date: 12/11/2023 (No Known Allergies) Date Reviewed: 09/16/2023 Reviewed by: Boubacar Andrews MD - Fully Assessed Prescriptions as of 12/11/2023 - morphine (PF) 5 mg/mL in NaCl 0.9% 20 mL PF MORPHINE 5 MG/ML SIMPLE CONTINUOUS RATE 0.8636 mg/ day PTM 0.0799 mg every 4 hours (max 6 doses per day) Total daily dose 1.3397mg - gabapentin (NEURONTIN) 800 mg tablet Take 1 tablet by mouth three times a day for 120 days. - tiZANidine (ZANAFLEX) 4 mg tablet Take 1 tablet by mouth three times a day as needed. - Acetaminophen 500 mg cap Take 1,000 mg by mouth two times a day as needed. - ascorbic acid, vitamin C, (VITAMIN C) 500 mg tablet Take 500 mg by mouth once daily. - famotidine (PEPCID) 20 mg tablet Take 20 mg by mouth daily at bedtime. - calcium carbonate (CALTRATE) 600 mg calcium (1,500 mg) tab Take by mouth every 24 hours. - omeprazole (PRILOSEC) 40 mg capsule take 1 capsule by mouth every day before a meal - ferrous sulfate (IRON) 325 mg (65 mg iron) tablet Take 325 mg by mouth. - lidocaine-prilocaine (EMLA) 2.5-2.5 % cream Apply to affected area as needed. 1-2 grams to affected area TID PRN - dorzolamide-timolol (COSOPT) 22.3-6.8 mg/mL ophthalmic solution INSTILL 1 DROP IN LEFT EYE TWICE DAILY - cholecalciferol (VITAMIN D3) 5,000 unit tab Take 2,000 Units by mouth once daily. Last dose 09/26/22 - Lactobac no.41/Bifidobact no.7 (PROBIOTIC-10 ORAL) Take 1 tablet by mouth every morning. - tolterodine ER (DETROL LA) 4 mg 24 hr capsule Take 4 mg by mouth every morning. - Zinc 50 mg tab as needed. - latanoprost (XALATAN) 0.005 % ophthalmic solution Use 1 Drop in both eyes daily at bedtime. - lisinopril-hydroCHLORO thiazide (PRINZIDE, ZESTORETIC) 20-25 mg per tablet Take 1 tablet by mouth every morning. - simvastatin (ZOCOR) 20 mg tablet Take 20 mg by mouth daily at bedtime. - brimonidine (ALPHAGAN) 0.2 % ophthalmic solution Use 1 Drop in the left eye twice daily. GLAUCOMA - cyclobenzaprine (FLEXERIL) 10 mg tablet Take 10 mg by mouth three times daily as needed for muscle spasm. - aspirin, enteric coated (ASPIRIN, ENTERIC COATED) 81 mg EC tablet Take 81 mg by mouth every morning. IS GOING TO CHECK WITH SURGEON AND PCP ABOUT WHEN NEEDS TO STOP ASA - multivit with minerals/lutein (MULTIVITAMIN 50 PLUS ORAL) Last dose 09/26/22 - folic acid 800 mcg tablet Take 800 mcg by mouth every morning. FROM P[facility] BLOOD [facility] CLOT [facility]ORM[facility] SEKOUEMPERATRIZ ZAMUDIO ([id number]) 1950 F Date Time Provider Department 12/09/23 BOUBACAR ANDREWS During your visit today, we recorded the following information about you: Maura Jarvis RN 12/09/2023 2:11 PM Signed Left message for pt to return call regarding finding a new pain pump provider. Maura Jarvis RN December 09, 2023 2:11 PM Maura Jarvis RN 12/09/2023 2:46 PM Signed List of possible pain pump providers mailed to the patient. Maura Jarvis RN December 09, 2023 2:46 PM Yue Ramirez RN 12/10/2023 11:32 AM Signed Pt called the office back and explained that Dr Andrews is leaving the practice as of 02/26/24. She will be receiving information in the mail about other possible providers that manage pain pumps. Pt verbalized understanding. Yue Ramirez RN December 10, 2023 11:32 AM Allergies As of Date: 12/09/2023 (No Known Allergies) Date Reviewed: 09/16/2023 Reviewed by: Boubacar Andrews MD - Fully Assessed Reason for Visit: Pain Pump [Other] Prescriptions as of 12/10/2023 - morphine (PF) 5 mg/mL in NaCl 0.9% 20 mL PF MORPHINE 5 MG/ML SIMPLE CONTINUOUS RATE 0.8636 mg/ day PTM 0.0799 mg every 4 hours (max 6 doses per day) Total daily dose 1.3397mg - gabapentin (NEURONTIN) 800 mg tablet Take 1 tablet by mouth three times a day for 120 days. - tiZANidine (ZANAFLEX) 4 mg tablet Take 1 tablet by mouth three times a day as needed. - Acetaminophen 500 mg cap Take 1,000 mg by mouth two times a day as needed. - ascorbic acid, vitamin C, (VITAMIN C) 500 mg tablet Take 500 mg by mouth once daily. - famotidine (PEPCID) 20 mg tablet Take 20 mg by mouth daily at bedtime. - calcium carbonate (CALTRATE) 600 mg calcium (1,500 mg) tab Take by mouth every 24 hours. - omeprazole (PRILOSEC) 40 mg capsule take 1 capsule by mouth every day before a meal - ferrous sulfate (IRON) 325 mg (65 mg iron) tablet Take 325 mg by mouth. - lidocaine-prilocaine (EMLA) 2.5-2.5 % cream Apply to affected area as needed. 1-2 grams to affected area TID PRN - dorzolamide-timolol (COSOPT) 22.3-6.8 mg/mL ophthalmic solution INSTILL 1 DROP IN LEFT EYE TWICE DAILY - cholecalciferol (VITAMIN D3) 5,000 unit tab Take 2,000 Units by mouth once daily. Last dose 09/26/22 - Lactobac no.41/Bifidobact no.7 (PROBIOTIC-10 ORAL) Take 1 tablet by mouth every morning. - tolterodine ER (DETROL LA) 4 mg 24 hr capsule Take 4 mg by mouth every morning. - Zinc 50 mg tab as needed. - latanoprost (XALATAN) 0.005 % ophthalmic solution Use 1 Drop in both eyes daily at bedtime. - lisinopril-hydroCHLORO thiazide (PRINZIDE, ZESTORETIC) 20-25 mg per tablet Take 1 tablet by mouth every morning. - simvastatin (ZOCOR) 20 mg tablet Take 20 mg by mouth daily at bedtime. - brimonidine (ALPHAGAN) 0.2 % ophthalmic solution Use 1 Drop in the left eye twice daily. GLAUCOMA - cyclobenzaprine (FLEXERIL) 10 mg tablet Take 10 mg by mouth three times daily as needed for muscle spasm. - aspirin, enteric coated (ASPIRIN, ENTERIC COATED) 81 mg EC tablet Take 81 mg by mouth every morning. IS GOING TO CHECK WITH SURGEON AND PCP ABOUT WHEN NEEDS TO STOP ASA - multivit with minerals/lutein (MULTIVITAMIN 50 PLUS ORAL) Last dose 09/26/22 - folic acid 800 mcg tablet Take 800 mcg by mouth every morning. FROM PCP BLOOD NOT CLOT NORMAL PERSON Problem List As Of Date 12/09/2023 Noted Resolved Other chronic pain [G89.29] 08/23/2015 Myofascial pain syndrome [M79.18] 03/11/2022 Radiculitis, thoracic [M54.14] 03/11/2022 Acute arthropathy [M12.9] 03/11/2022 Lumbar postlaminectomy syndrome [M96.1] 08/16/2022 Lumbar radiculopathy [M54.16] 08/23/2015 DDD (degenerative disc disease), lumbar [M51.36]08/16/2022 Degeneration of lumbar intervertebral disc [M51*09/05/2022 Obesity, Class III, BMI >= 40 [E66.01] 09/05/2022 Encounter for long-term (current) use of medica*02/15/2017 Encounter for other general examination [Z00.8] 10/04/2021 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] 08/23/2015 Gastroesophageal reflux disease [K21.9] 10/02/2022 Generalized osteoarthritis [M15.9] 08/23/2015 Glaucoma [H40.9] 10/02/2022 Hiatal hernia [K44.9] 10/02/2022 History of hip replacement, total, left [Z96.64*08/23/2015 Hyperlipidemia [E78.5] 10/02/2022 Knee pain, left [M25.562] 04/17/2017 Leg length discrepancy [M21.70] 12/11/2021 Morbid obesity (HCC) [E66.01] 08/23/2015 LINDY (obstructive sleep apnea) [G47.33] 06/06/2022 Sleep apnea [G47.30] 10/02/2022 Osteoarthritis of hip [M16.9] 11/21/2015 Pain in left hip [M25.552] 08/23/2015 Postoperative back pain [G89.18, M54.9] 02/15/2022 Sacroiliac joint dysfunction of both sides [M53*08/23/2015 Arthritis [M19.90] 10/02/2022 Postlaminectomy syndrome, lumbar region [M96.1] 11/21/2015 Chronic pain syndrome [G89.4] 02/15/2017 Arthropathy of thoracic facet joint [M47.814] 12/19/2017 Deg (more content not included)... [facility] CNTHERAPYon 12-09-2023 CNTHERAPY OT/PT/Speech Visit ([facility]MTUS) EMPERATRIZ GHOSH ([id number]) 1950 F Date Time Provider Department 12/09/23 10:45 AM DWAIN KOLB [facility] [[email or web address]] Date Time Provider Department Center 12/09/2023 10:45 AM [id number], SHEILA*[facility] M Reason for Visit: Physical Therapy [503] Primary Visit Diagnosis:Decreased range of motion of left knee [M25.662] Other Visit Diagnoses:Presence of left artificial knee joint [Z96.652] Weakness [R53.1] Allergies As of Date: 12/09/2023 (No Known Allergies) Date Reviewed: 09/16/2023 Reviewed by: Boubacar Andrews MD - Fully Assessed Prescriptions as of 12/09/2023 - morphine (PF) 5 mg/mL in NaCl 0.9% 20 mL PF MORPHINE 5 MG/ML SIMPLE CONTINUOUS RATE 0.8636 mg/ day PTM 0.0799 mg every 4 hours (max 6 doses per day) Total daily dose 1.3397mg - gabapentin (NEURONTIN) 800 mg tablet Take 1 tablet by mouth three times a day for 120 days. - tiZANidine (ZANAFLEX) 4 mg tablet Take 1 tablet by mouth three times a day as needed. - Acetaminophen 500 mg cap Take 1,000 mg by mouth two times a day as needed. - ascorbic acid, vitamin C, (VITAMIN C) 500 mg tablet Take 500 mg by mouth once daily. - famotidine (PEPCID) 20 mg tablet Take 20 mg by mouth daily at bedtime. - calcium carbonate (CALTRATE) 600 mg calcium (1,500 mg) tab Take by mouth every 24 hours. - omeprazole (PRILOSEC) 40 mg capsule take 1 capsule by mouth every day before a meal - ferrous sulfate (IRON) 325 mg (65 mg iron) tablet Take 325 mg by mouth. - lidocaine-prilocaine (EMLA) 2.5-2.5 % cream Apply to affected area as needed. 1-2 grams to affected area TID PRN - dorzolamide-timolol (COSOPT) 22.3-6.8 mg/mL ophthalmic solution INSTILL 1 DROP IN LEFT EYE TWICE DAILY - cholecalciferol (VITAMIN D3) 5,000 unit tab Take 2,000 Units by mouth once daily. Last dose 09/26/22 - Lactobac no.41/Bifidobact no.7 (PROBIOTIC-10 ORAL) Take 1 tablet by mouth every morning. - tolterodine ER (DETROL LA) 4 mg 24 hr capsule Take 4 mg by mouth every morning. - Zinc 50 mg tab as needed. - latanoprost (XALATAN) 0.005 % ophthalmic solution Use 1 Drop in both eyes daily at bedtime. - lisinopril-hydroCHLORO thiazide (PRINZIDE, ZESTORETIC) 20-25 mg per tablet Take 1 tablet by mouth every morning. - simvastatin (ZOCOR) 20 mg tablet Take 20 mg by mouth daily at bedtime. - brimonidine (ALPHAGAN) 0.2 % ophthalmic solution Use 1 Drop in the left eye twice daily. GLAUCOMA - cyclobenzaprine (FLEXERIL) 10 mg tablet Take 10 mg by mouth three times daily as needed for muscle spasm. - aspirin, enteric coated (ASPIRIN, ENTERIC COATED) 81 mg EC tablet Take 81 mg by mouth every morning. IS GOING TO CHECK WITH SURGEON AND PCP ABOUT WHEN NEEDS TO STOP ASA - multivit with minerals/lutein (MULTIVITAMIN 50 PLUS ORAL) Last dose 09/26/22 - folic acid 800 mcg tablet Take 800 mcg by mouth every morning. FROM PCP BLOOD NOT CLOT NORMAL PERSON Normal [facility] CNTHERAPYon 12-04-2023 CNTHERAPY OT/PT/Speech Visit ([facility]MTUS) EMPERATRIZ GHOSH ([id number]) 1950 F Date Time Provider Department 12/04/23 10:45 AM DWAIN KOLB [facility] [[email or web address]] Date Time Provider Department Center 12/04/2023 10:45 AM [id number], SHEILA*[facility] M Reason for Visit: Physical Therapy [503] Primary Visit Diagnosis:Decreased range of motion of left knee [M25.662] Other Visit Diagnoses:Presence of left artificial knee joint [Z96.652] Weakness [R53.1] Allergies As of Date: 12/04/2023 (No Known Allergies) Date Reviewed: 09/16/2023 Reviewed by: Boubacar Andrews MD - Fully Assessed Prescriptions as of 12/04/2023 - morphine (PF) 5 mg/mL in NaCl 0.9% 20 mL PF MORPHINE 5 MG/ML SIMPLE CONTINUOUS RATE 0.8636 mg/ day PTM 0.0799 mg every 4 hours (max 6 doses per day) Total daily dose 1.3397mg - gabapentin (NEURONTIN) 800 mg tablet Take 1 tablet by mouth three times a day for 120 days. - tiZANidine (ZANAFLEX) 4 mg tablet Take 1 tablet by mouth three times a day as needed. - Acetaminophen 500 mg cap Take 1,000 mg by mouth two times a day as needed. - ascorbic acid, vitamin C, (VITAMIN C) 500 mg tablet Take 500 mg by mouth once daily. - famotidine (PEPCID) 20 mg tablet Take 20 mg by mouth daily at bedtime. - calcium carbonate (CALTRATE) 600 mg calcium (1,500 mg) tab Take by mouth every 24 hours. - omeprazole (PRILOSEC) 40 mg capsule take 1 capsule by mouth every day before a meal - ferrous sulfate (IRON) 325 mg (65 mg iron) tablet Take 325 mg by mouth. - lidocaine-prilocaine (EMLA) 2.5-2.5 % cream Apply to affected area as needed. 1-2 grams to affected area TID PRN - dorzolamide-timolol (COSOPT) 22.3-6.8 mg/mL ophthalmic solution INSTILL 1 DROP IN LEFT EYE TWICE DAILY - cholecalciferol (VITAMIN D3) 5,000 unit tab Take 2,000 Units by mouth once daily. Last dose 09/26/22 - Lactobac no.41/Bifidobact no.7 (PROBIOTIC-10 ORAL) Take 1 tablet by mouth every morning. - tolterodine ER (DETROL LA) 4 mg 24 hr capsule Take 4 mg by mouth every morning. - Zinc 50 mg tab as needed. - latanoprost (XALATAN) 0.005 % ophthalmic solution Use 1 Drop in both eyes daily at bedtime. - lisinopril-hydroCHLORO thiazide (PRINZIDE, ZESTORETIC) 20-25 mg per tablet Take 1 tablet by mouth every morning. - simvastatin (ZOCOR) 20 mg tablet Take 20 mg by mouth daily at bedtime. - brimonidine (ALPHAGAN) 0.2 % ophthalmic solution Use 1 Drop in the left eye twice daily. GLAUCOMA - cyclobenzaprine (FLEXERIL) 10 mg tablet Take 10 mg by mouth three times daily as needed for muscle spasm. - aspirin, enteric coated (ASPIRIN, ENTERIC COATED) 81 mg EC tablet Take 81 mg by mouth every morning. IS GOING TO CHECK WITH SURGEON AND PCP ABOUT WHEN NEEDS TO STOP ASA - multivit with minerals/lutein (MULTIVITAMIN 50 PLUS ORAL) Last dose 09/26/22 - folic acid 800 mcg tablet Take 800 mcg by mouth every morning. FROM PCP BLOOD NOT CLOT NORMAL PERSON [facility] CNTHERAPYon 12-02-2023 CNTHERAPY OT/PT/Speech Visit ([facility]MTUS) EMPERATRIZ GHOSH ([id number]) 1950 F Date Time Provider Department 12/02/23 10:45 AM DWAIN KOLB [facility] [[email or web address]] Date Time Provider Department Center 12/02/2023 10:45 AM [id number], SHEILA*[facility] M Reason for Visit: Physical Therapy [503] Primary Visit Diagnosis:Decreased range of motion of left knee [M25.662] Other Visit Diagnoses:Presence of left artificial knee joint [Z96.652] Weakness [R53.1] Allergies As of Date: 12/02/2023 (No Known Allergies) Date Reviewed: 09/16/2023 Reviewed by: Boubacar Andrews MD - Fully Assessed Prescriptions as of 12/02/2023 - morphine (PF) 5 mg/mL in NaCl 0.9% 20 mL PF MORPHINE 5 MG/ML SIMPLE CONTINUOUS RATE 0.8636 mg/ day PTM 0.0799 mg every 4 hours (max 6 doses per day) Total daily dose 1.3397mg - gabapentin (NEURONTIN) 800 mg tablet Take 1 tablet by mouth three times a day for 120 days. - tiZANidine (ZANAFLEX) 4 mg tablet Take 1 tablet by mouth three times a day as needed. - Acetaminophen 500 mg cap Take 1,000 mg by mouth two times a day as needed. - ascorbic acid, vitamin C, (VITAMIN C) 500 mg tablet Take 500 mg by mouth once daily. - famotidine (PEPCID) 20 mg tablet Take 20 mg by mouth daily at bedtime. - calcium carbonate (CALTRATE) 600 mg calcium (1,500 mg) tab Take by mouth every 24 hours. - omeprazole (PRILOSEC) 40 mg capsule take 1 capsule by mouth every day before a meal - ferrous sulfate (IRON) 325 mg (65 mg iron) tablet Take 325 mg by mouth. - lidocaine-prilocaine (EMLA) 2.5-2.5 % cream Apply to affected area as needed. 1-2 grams to affected area TID PRN - dorzolamide-timolol (COSOPT) 22.3-6.8 mg/mL ophthalmic solution INSTILL 1 DROP IN LEFT EYE TWICE DAILY - cholecalciferol (VITAMIN D3) 5,000 unit tab Take 2,000 Units by mouth once daily. Last dose 09/26/22 - Lactobac no.41/Bifidobact no.7 (PROBIOTIC-10 ORAL) Take 1 tablet by mouth every morning. - tolterodine ER (DETROL LA) 4 mg 24 hr capsule Take 4 mg by mouth every morning. - Zinc 50 mg tab as needed. - latanoprost (XALATAN) 0.005 % ophthalmic solution Use 1 Drop in both eyes daily at bedtime. - lisinopril-hydroCHLORO thiazide (PRINZIDE, ZESTORETIC) 20-25 mg per tablet Take 1 tablet by mouth every morning. - simvastatin (ZOCOR) 20 mg tablet Take 20 mg by mouth daily at bedtime. - brimonidine (ALPHAGAN) 0.2 % ophthalmic solution Use 1 Drop in the left eye twice daily. GLAUCOMA - cyclobenzaprine (FLEXERIL) 10 mg tablet Take 10 mg by mouth three times daily as needed for muscle spasm. - aspirin, enteric coated (ASPIRIN, ENTERIC COATED) 81 mg EC tablet Take 81 mg by mouth every morning. IS GOING TO CHECK WITH SURGEON AND PCP ABOUT WHEN NEEDS TO STOP ASA - multivit with minerals/lutein (MULTIVITAMIN 50 PLUS ORAL) Last dose 09/26/22 - folic acid 800 mcg tablet Take 800 mcg by mouth every morning. FROM PCP BLOOD NOT CLOT NORMAL PERSON Normal [facility] CNTHERAPYon 11-27-2023 CNTHERAPY OT/PT/Speech Visit ([facility] [[email or web address] EMPERATRIZ GHOSH ([id number]) 1950 F Date Time Provider Department 11/27/23 11:00 AM DEEPTHIHARIKALAURA JETER [facility] [[email or web address]] Date Time Provider Department Center 11/27/2023 11:00 AM [id number], MICHEL*[facility] M Reason for Visit: PT Progress Note [1596] Primary Visit Diagnosis:Decreased range of motion of left knee [M25.662] Other Visit Diagnoses:Presence of left artificial knee joint [Z96.652] Weakness [R53.1] Allergies As of Date: 11/27/2023 (No Known Allergies) Date Reviewed: 09/16/2023 Reviewed by: Boubacar Andrews MD - Fully Assessed Prescriptions as of 11/27/2023 - morphine (PF) 5 mg/mL in NaCl 0.9% 20 mL PF MORPHINE 5 MG/ML SIMPLE CONTINUOUS RATE 0.8636 mg/ day PTM 0.0799 mg every 4 hours (max 6 doses per day) Total daily dose 1.3397mg - gabapentin (NEURONTIN) 800 mg tablet Take 1 tablet by mouth three times a day for 120 days. - tiZANidine (ZANAFLEX) 4 mg tablet Take 1 tablet by mouth three times a day as needed. - Acetaminophen 500 mg cap Take 1,000 mg by mouth two times a day as needed. - ascorbic acid, vitamin C, (VITAMIN C) 500 mg tablet Take 500 mg by mouth once daily. - famotidine (PEPCID) 20 mg tablet Take 20 mg by mouth daily at bedtime. - calcium carbonate (CALTRATE) 600 mg calcium (1,500 mg) tab Take by mouth every 24 hours. - omeprazole (PRILOSEC) 40 mg capsule take 1 capsule by mouth every day before a meal - ferrous sulfate (IRON) 325 mg (65 mg iron) tablet Take 325 mg by mouth. - lidocaine-prilocaine (EMLA) 2.5-2.5 % cream Apply to affected area as needed. 1-2 grams to affected area TID PRN - dorzolamide-timolol (COSOPT) 22.3-6.8 mg/mL ophthalmic solution INSTILL 1 DROP IN LEFT EYE TWICE DAILY - cholecalciferol (VITAMIN D3) 5,000 unit tab Take 2,000 Units by mouth once daily. Last dose 09/26/22 - Lactobac no.41/Bifidobact no.7 (PROBIOTIC-10 ORAL) Take 1 tablet by mouth every morning. - tolterodine ER (DETROL LA) 4 mg 24 hr capsule Take 4 mg by mouth every morning. - Zinc 50 mg tab as needed. - latanoprost (XALATAN) 0.005 % ophthalmic solution Use 1 Drop in both eyes daily at bedtime. - lisinopril-hydroCHLORO thiazide (PRINZIDE, ZESTORETIC) 20-25 mg per tablet Take 1 tablet by mouth every morning. - simvastatin (ZOCOR) 20 mg tablet Take 20 mg by mouth daily at bedtime. - brimonidine (ALPHAGAN) 0.2 % ophthalmic solution Use 1 Drop in the left eye twice daily. GLAUCOMA - cyclobenzaprine (FLEXERIL) 10 mg tablet Take 10 mg by mouth three times daily as needed for muscle spasm. - aspirin, enteric coated (ASPIRIN, ENTERIC COATED) 81 mg EC tablet Take 81 mg by mouth every morning. IS GOING TO CHECK WITH SURGEON AND PCP ABOUT WHEN NEEDS TO STOP ASA - multivit with minerals/lutein (MULTIVITAMIN 50 PLUS ORAL) Last dose 09/26/22 - folic acid 800 mcg tablet Take 800 mcg by mouth every morning. FROM PCP BLOOD NOT CLOT NORMAL PERSON Letter Text [facility] CNTHERAPYon 11-25-2023 CNTHERAPY OT/PT/Speech Visit ([facility] [[email or web address] EMPERATRIZ GHOSH ([id number]) 1950 F Date Time Provider Department 11/25/23 1:30 PM DWAIN KOLB [facility] [[email or web address]] Date Time Provider Department Center 11/25/2023 1:30 PM [id number], SHEILA*[facility] M Reason for Visit: Physical Therapy [503] Primary Visit Diagnosis:Decreased range of motion of left knee [M25.662] Other Visit Diagnoses:Presence of left artificial knee joint [Z96.652] Weakness [R53.1] Allergies As of Date: 11/25/2023 (No Known Allergies) Date Reviewed: 09/16/2023 Reviewed by: Boubacar Andrews MD - Fully Assessed Prescriptions as of 11/25/2023 - morphine (PF) 5 mg/mL in NaCl 0.9% 20 mL PF MORPHINE 5 MG/ML SIMPLE CONTINUOUS RATE 0.8636 mg/ day PTM 0.0799 mg every 4 hours (max 6 doses per day) Total daily dose 1.3397mg - gabapentin (NEURONTIN) 800 mg tablet Take 1 tablet by mouth three times a day for 120 days. - tiZANidine (ZANAFLEX) 4 mg tablet Take 1 tablet by mouth three times a day as needed. - Acetaminophen 500 mg cap Take 1,000 mg by mouth two times a day as needed. - ascorbic acid, vitamin C, (VITAMIN C) 500 mg tablet Take 500 mg by mouth once daily. - famotidine (PEPCID) 20 mg tablet Take 20 mg by mouth daily at bedtime. - calcium carbonate (CALTRATE) 600 mg calcium (1,500 mg) tab Take by mouth every 24 hours. - omeprazole (PRILOSEC) 40 mg capsule take 1 capsule by mouth every day before a meal - ferrous sulfate (IRON) 325 mg (65 mg iron) tablet Take 325 mg by mouth. - lidocaine-prilocaine (EMLA) 2.5-2.5 % cream Apply to affected area as needed. 1-2 grams to affected area TID PRN - dorzolamide-timolol (COSOPT) 22.3-6.8 mg/mL ophthalmic solution INSTILL 1 DROP IN LEFT EYE TWICE DAILY - cholecalciferol (VITAMIN D3) 5,000 unit tab Take 2,000 Units by mouth once daily. Last dose 09/26/22 - Lactobac no.41/Bifidobact no.7 (PROBIOTIC-10 ORAL) Take 1 tablet by mouth every morning. - tolterodine ER (DETROL LA) 4 mg 24 hr capsule Take 4 mg by mouth every morning. - Zinc 50 mg tab as needed. - latanoprost (XALATAN) 0.005 % ophthalmic solution Use 1 Drop in both eyes daily at bedtime. - lisinopril-hydroCHLORO thiazide (PRINZIDE, ZESTORETIC) 20-25 mg per tablet Take 1 tablet by mouth every morning. - simvastatin (ZOCOR) 20 mg tablet Take 20 mg by mouth daily at bedtime. - brimonidine (ALPHAGAN) 0.2 % ophthalmic solution Use 1 Drop in the left eye twice daily. GLAUCOMA - cyclobenzaprine (FLEXERIL) 10 mg tablet Take 10 mg by mouth three times daily as needed for muscle spasm. - aspirin, enteric coated (ASPIRIN, ENTERIC COATED) 81 mg EC tablet Take 81 mg by mouth every morning. IS GOING TO CHECK WITH SURGEON AND PCP ABOUT WHEN NEEDS TO STOP ASA - multivit with minerals/lutein (MULTIVITAMIN 50 PLUS ORAL) Last dose 09/26/22 - folic acid 800 mcg tablet Take 800 mcg by mouth every morning. FROM PCP BLOOD NOT CLOT NORMAL PERSON Normal [facility] CNTHERAPYon 11-21-2023 CNTHERAPY OT/PT/Speech Visit ([facility]) EMPERATRIZ GHOSH ([id number]) 1950 F Date Time Provider Department 11/21/23 11:00 AM MAYA GOEL Erwin [facility] [[email or web address]] Date Time Provider Department Center 11/21/2023 11:00 AM [id number], AMBER M [facility] Reason for Visit: Physical Therapy [503] Primary Visit Diagnosis:Decreased range of motion of left knee [M25.662] Other Visit Diagnoses:Presence of left artificial knee joint [Z96.652] Weakness [R53.1] Allergies As of Date: 11/21/2023 (No Known Allergies) Date Reviewed: 09/16/2023 Reviewed by: Boubacar Andrews MD - Fully Assessed Prescriptions as of 11/21/2023 - morphine (PF) 5 mg/mL in NaCl 0.9% 20 mL PF MORPHINE 5 MG/ML SIMPLE CONTINUOUS RATE 0.8636 mg/ day PTM 0.0799 mg every 4 hours (max 6 doses per day) Total daily dose 1.3397mg - gabapentin (NEURONTIN) 800 mg tablet Take 1 tablet by mouth three times a day for 120 days. - tiZANidine (ZANAFLEX) 4 mg tablet Take 1 tablet by mouth three times a day as needed. - Acetaminophen 500 mg cap Take 1,000 mg by mouth two times a day as needed. - ascorbic acid, vitamin C, (VITAMIN C) 500 mg tablet Take 500 mg by mouth once daily. - famotidine (PEPCID) 20 mg tablet Take 20 mg by mouth daily at bedtime. - calcium carbonate (CALTRATE) 600 mg calcium (1,500 mg) tab Take by mouth every 24 hours. - omeprazole (PRILOSEC) 40 mg capsule take 1 capsule by mouth every day before a meal - ferrous sulfate (IRON) 325 mg (65 mg iron) tablet Take 325 mg by mouth. - lidocaine-prilocaine (EMLA) 2.5-2.5 % cream Apply to affected area as needed. 1-2 grams to affected area TID PRN - dorzolamide-timolol (COSOPT) 22.3-6.8 mg/mL ophthalmic solution INSTILL 1 DROP IN LEFT EYE TWICE DAILY - cholecalciferol (VITAMIN D3) 5,000 unit tab Take 2,000 Units by mouth once daily. Last dose 09/26/22 - Lactobac no.41/Bifidobact no.7 (PROBIOTIC-10 ORAL) Take 1 tablet by mouth every morning. - tolterodine ER (DETROL LA) 4 mg 24 hr capsule Take 4 mg by mouth every morning. - Zinc 50 mg tab as needed. - latanoprost (XALATAN) 0.005 % ophthalmic solution Use 1 Drop in both eyes daily at bedtime. - lisinopril-hydroCHLORO thiazide (PRINZIDE, ZESTORETIC) 20-25 mg per tablet Take 1 tablet by mouth every morning. - simvastatin (ZOCOR) 20 mg tablet Take 20 mg by mouth daily at bedtime. - brimonidine (ALPHAGAN) 0.2 % ophthalmic solution Use 1 Drop in the left eye twice daily. GLAUCOMA - cyclobenzaprine (FLEXERIL) 10 mg tablet Take 10 mg by mouth three times daily as needed for muscle spasm. - aspirin, enteric coated (ASPIRIN, ENTERIC COATED) 81 mg EC tablet Take 81 mg by mouth every morning. IS GOING TO CHECK WITH SURGEON AND PCP ABOUT WHEN NEEDS TO STOP ASA - multivit with minerals/lutein (MULTIVITAMIN 50 PLUS ORAL) Last dose 09/26/22 - folic acid 800 mcg tablet Take 800 mcg by mouth every morning. FROM PCP BLOOD NOT CLOT NORMAL PERSON [facility] CNTHERAPYon 11-19-2023 CNTHERAPY OT/PT/Speech Visit ([facility]) TOMMYANGELEMPERATRIZ Katarzyna ([id number]) 1950 F Date Time Provider Department 11/19/23 3:00 PM DWAIN KOLB [facility] [[email or web address]] Date Time Provider Department [place] 11/19/2023 3:00 PM [id number], SHEILA*[facility] M Reason for Visit: Physical Therapy [503] Primary Visit Diagnosis:Decreased range of motion of left knee [M25.662] Other Visit Diagnoses:Presence of left artificial knee joint [Z96.652] Weakness [R53.1] Allergies As of Date: 11/19/2023 (No Known Allergies) Date Reviewed: 09/16/2023 Reviewed by: Boubacar Andrews MD - Fully Assessed Prescriptions as of 11/19/2023 - morphine (PF) 5 mg/mL in NaCl 0.9% 20 mL PF MORPHINE 5 MG/ML SIMPLE CONTINUOUS RATE 0.8636 mg/ day PTM 0.0799 mg every 4 hours (max 6 doses per day) Total daily dose 1.3397mg - gabapentin (NEURONTIN) 800 mg tablet Take 1 tablet by mouth three times a day for 120 days. - tiZANidine (ZANAFLEX) 4 mg tablet Take 1 tablet by mouth three times a day as needed. - Acetaminophen 500 mg cap Take 1,000 mg by mouth two times a day as needed. - ascorbic acid, vitamin C, (VITAMIN C) 500 mg tablet Take 500 mg by mouth once daily. - famotidine (PEPCID) 20 mg tablet Take 20 mg by mouth daily at bedtime. - calcium carbonate (CALTRATE) 600 mg calcium (1,500 mg) tab Take by mouth every 24 hours. - omeprazole (PRILOSEC) 40 mg capsule take 1 capsule by mouth every day before a meal - ferrous sulfate (IRON) 325 mg (65 mg iron) tablet Take 325 mg by mouth. - lidocaine-prilocaine (EMLA) 2.5-2.5 % cream Apply to affected area as needed. 1-2 grams to affected area TID PRN - dorzolamide-timolol (COSOPT) 22.3-6.8 mg/mL ophthalmic solution INSTILL 1 DROP IN LEFT EYE TWICE DAILY - cholecalciferol (VITAMIN D3) 5,000 unit tab Take 2,000 Units by mouth once daily. Last dose 09/26/22 - Lactobac no.41/Bifidobact no.7 (PROBIOTIC-10 ORAL) Take 1 tablet by mouth every morning. - tolterodine ER (DETROL LA) 4 mg 24 hr capsule Take 4 mg by mouth every morning. - Zinc 50 mg tab as needed. - latanoprost (XALATAN) 0.005 % ophthalmic solution Use 1 Drop in both eyes daily at bedtime. - lisinopril-hydroCHLORO thiazide (PRINZIDE, ZESTORETIC) 20-25 mg per tablet Take 1 tablet by mouth every morning. - simvastatin (ZOCOR) 20 mg tablet Take 20 mg by mouth daily at bedtime. - brimonidine (ALPHAGAN) 0.2 % ophthalmic solution Use 1 Drop in the left eye twice daily. GLAUCOMA - cyclobenzaprine (FLEXERIL) 10 mg tablet Take 10 mg by mouth three times daily as needed for muscle spasm. - aspirin, enteric coated (ASPIRIN, ENTERIC COATED) 81 mg EC tablet Take 81 mg by mouth every morning. IS GOING TO CHECK WITH SURGEON AND PCP ABOUT WHEN NEEDS TO STOP ASA - multivit with minerals/lutein (MULTIVITAMIN 50 PLUS ORAL) Last dose 09/26/22 - folic acid 800 mcg tablet Take 800 mcg by mouth every morning. FROM PCP BLOOD NOT CLOT NORMAL PERSON [facility] CNTHERAPYon 11-15-2023 CNTHERAPY OT/PT/Speech Visit ([facility]) TOMMYEMPERATRIZ ([id number]) 1950 F Date Time Provider Department 11/15/23 11:00 AM DWAIN KOLB [facility] [[email or web address]] Date Time Provider Department Center 11/15/2023 11:00 AM [id number], SHEILA*[facility] Reason for Visit: Physical Therapy [503] Primary Visit Diagnosis:Decreased range of motion of left knee [M25.662] Other Visit Diagnoses:Presence of left artificial knee joint [Z96.652] Weakness [R53.1] Allergies As of Date: 11/15/2023 (No Known Allergies) Date Reviewed: 09/16/2023 Reviewed by: Boubacar Andrews MD - Fully Assessed Prescriptions as of 11/15/2023 - gabapentin (NEURONTIN) 800 mg tablet Take 1 tablet by mouth three times a day for 120 days. - morphine (PF) 5 mg/mL in NaCl 0.9% 20 mL PF MORPHINE 5 MG/ML SIMPLE CONTINUOUS RATE 0.8636 mg/ day PTM 0.0799 mg every 4 hours (max 6 doses per day) Total daily dose 1.3397mg - tiZANidine (ZANAFLEX) 4 mg tablet Take 1 tablet by mouth three times a day as needed. - Acetaminophen 500 mg cap Take 1,000 mg by mouth two times a day as needed. - ascorbic acid, vitamin C, (VITAMIN C) 500 mg tablet Take 500 mg by mouth once daily. - famotidine (PEPCID) 20 mg tablet Take 20 mg by mouth daily at bedtime. - calcium carbonate (CALTRATE) 600 mg calcium (1,500 mg) tab Take by mouth every 24 hours. - omeprazole (PRILOSEC) 40 mg capsule take 1 capsule by mouth every day before a meal - ferrous sulfate (IRON) 325 mg (65 mg iron) tablet Take 325 mg by mouth. - lidocaine-prilocaine (EMLA) 2.5-2.5 % cream Apply to affected area as needed. 1-2 grams to affected area TID PRN - dorzolamide-timolol (COSOPT) 22.3-6.8 mg/mL ophthalmic solution INSTILL 1 DROP IN LEFT EYE TWICE DAILY - cholecalciferol (VITAMIN D3) 5,000 unit tab Take 2,000 Units by mouth once daily. Last dose 09/26/22 - Lactobac no.41/Bifidobact no.7 (PROBIOTIC-10 ORAL) Take 1 tablet by mouth every morning. - tolterodine ER (DETROL LA) 4 mg 24 hr capsule Take 4 mg by mouth every morning. - Zinc 50 mg tab as needed. - latanoprost (XALATAN) 0.005 % ophthalmic solution Use 1 Drop in both eyes daily at bedtime. - lisinopril-hydroCHLORO thiazide (PRINZIDE, ZESTORETIC) 20-25 mg per tablet Take 1 tablet by mouth every morning. - simvastatin (ZOCOR) 20 mg tablet Take 20 mg by mouth daily at bedtime. - brimonidine (ALPHAGAN) 0.2 % ophthalmic solution Use 1 Drop in the left eye twice daily. GLAUCOMA - cyclobenzaprine (FLEXERIL) 10 mg tablet Take 10 mg by mouth three times daily as needed for muscle spasm. - aspirin, enteric coated (ASPIRIN, ENTERIC COATED) 81 mg EC tablet Take 81 mg by mouth every morning. IS GOING TO CHECK WITH SURGEON AND PCP ABOUT WHEN NEEDS TO STOP ASA - multivit with minerals/lutein (MULTIVITAMIN 50 PLUS ORAL) Last dose 09/26/22 - folic acid 800 mcg tablet Take 800 mcg by mouth every morning. FROM PCP BLOOD NOT CLOT NORMAL PERSON [facility] CNTHERAPYon 11-13-2023 CNTHERAPY OT/PT/Speech Visit ([facility]) SEKOUEMPERATRIZ ZAMUDIO ([id number]) 1950 F Date Time Provider Department 11/13/23 2:15 PM LAURA SHAFFER [facility] [[email or web address]] Date Time Provider Department [place] 11/13/2023 2:15 PM [id number], MICHEL*[facility] M Reason for Visit: PT Progress Note [1596] Primary Visit Diagnosis:Decreased range of motion of left knee [M25.662] Other Visit Diagnoses:Presence of left artificial knee joint [Z96.652] Weakness [R53.1] Allergies As of Date: 11/13/2023 (No Known Allergies) Date Reviewed: 09/16/2023 Reviewed by: Boubacar Andrews MD - Fully Assessed Prescriptions as of 11/13/2023 - gabapentin (NEURONTIN) 800 mg tablet Take 1 tablet by mouth three times a day for 120 days. - morphine (PF) 5 mg/mL in NaCl 0.9% 20 mL PF MORPHINE 5 MG/ML SIMPLE CONTINUOUS RATE 0.8636 mg/ day PTM 0.0799 mg every 4 hours (max 6 doses per day) Total daily dose 1.3397mg - tiZANidine (ZANAFLEX) 4 mg tablet Take 1 tablet by mouth three times a day as needed. - Acetaminophen 500 mg cap Take 1,000 mg by mouth two times a day as needed. - ascorbic acid, vitamin C, (VITAMIN C) 500 mg tablet Take 500 mg by mouth once daily. - famotidine (PEPCID) 20 mg tablet Take 20 mg by mouth daily at bedtime. - calcium carbonate (CALTRATE) 600 mg calcium (1,500 mg) tab Take by mouth every 24 hours. - omeprazole (PRILOSEC) 40 mg capsule take 1 capsule by mouth every day before a meal - ferrous sulfate (IRON) 325 mg (65 mg iron) tablet Take 325 mg by mouth. - lidocaine-prilocaine (EMLA) 2.5-2.5 % cream Apply to affected area as needed. 1-2 grams to affected area TID PRN - dorzolamide-timolol (COSOPT) 22.3-6.8 mg/mL ophthalmic solution INSTILL 1 DROP IN LEFT EYE TWICE DAILY - cholecalciferol (VITAMIN D3) 5,000 unit tab Take 2,000 Units by mouth once daily. Last dose 09/26/22 - Lactobac no.41/Bifidobact no.7 (PROBIOTIC-10 ORAL) Take 1 tablet by mouth every morning. - tolterodine ER (DETROL LA) 4 mg 24 hr capsule Take 4 mg by mouth every morning. - Zinc 50 mg tab as needed. - latanoprost (XALATAN) 0.005 % ophthalmic solution Use 1 Drop in both eyes daily at bedtime. - lisinopril-hydroCHLORO thiazide (PRINZIDE, ZESTORETIC) 20-25 mg per tablet Take 1 tablet by mouth every morning. - simvastatin (ZOCOR) 20 mg tablet Take 20 mg by mouth daily at bedtime. - brimonidine (ALPHAGAN) 0.2 % ophthalmic solution Use 1 Drop in the left eye twice daily. GLAUCOMA - cyclobenzaprine (FLEXERIL) 10 mg tablet Take 10 mg by mouth three times daily as needed for muscle spasm. - aspirin, enteric coated (ASPIRIN, ENTERIC COATED) 81 mg EC tablet Take 81 mg by mouth every morning. IS GOING TO CHECK WITH SURGEON AND PCP ABOUT WHEN NEEDS TO STOP ASA - multivit with minerals/lutein (MULTIVITAMIN 50 PLUS ORAL) Last dose 09/26/22 - folic acid 800 mcg tablet Take 800 mcg by mouth every morning. FROM PCP BLOOD NOT CLOT NORMAL PERSON [facility] CNTHERAPYon 11-11-2023 CNTHERAPY OT/PT/Speech Visit ([facility]) EMPERATRIZ GHOSH ([id number]) 1950 F Date Time Provider Department 11/11/23 11:00 AM LAURA SHAFFER [facility] [[email or web address]] Date Time Provider Department [place] 11/11/2023 11:00 AM [id number], MICHEL*[facility] M Reason for Visit: Physical Therapy [503] Primary Visit Diagnosis:Decreased range of motion of left knee [M25.662] Other Visit Diagnoses:Presence of left artificial knee joint [Z96.652] Weakness [R53.1] Allergies As of Date: 11/11/2023 (No Known Allergies) Date Reviewed: 09/16/2023 Reviewed by: Boubacar Andrews MD - Fully Assessed Prescriptions as of 11/11/2023 - gabapentin (NEURONTIN) 800 mg tablet Take 1 tablet by mouth three times a day for 120 days. - morphine (PF) 5 mg/mL in NaCl 0.9% 20 mL PF MORPHINE 5 MG/ML SIMPLE CONTINUOUS RATE 0.8636 mg/ day PTM 0.0799 mg every 4 hours (max 6 doses per day) Total daily dose 1.3397mg - tiZANidine (ZANAFLEX) 4 mg tablet Take 1 tablet by mouth three times a day as needed. - Acetaminophen 500 mg cap Take 1,000 mg by mouth two times a day as needed. - ascorbic acid, vitamin C, (VITAMIN C) 500 mg tablet Take 500 mg by mouth once daily. - famotidine (PEPCID) 20 mg tablet Take 20 mg by mouth daily at bedtime. - calcium carbonate (CALTRATE) 600 mg calcium (1,500 mg) tab Take by mouth every 24 hours. - omeprazole (PRILOSEC) 40 mg capsule take 1 capsule by mouth every day before a meal - ferrous sulfate (IRON) 325 mg (65 mg iron) tablet Take 325 mg by mouth. - lidocaine-prilocaine (EMLA) 2.5-2.5 % cream Apply to affected area as needed. 1-2 grams to affected area TID PRN - dorzolamide-timolol (COSOPT) 22.3-6.8 mg/mL ophthalmic solution INSTILL 1 DROP IN LEFT EYE TWICE DAILY - cholecalciferol (VITAMIN D3) 5,000 unit tab Take 2,000 Units by mouth once daily. Last dose 2/1/23 - Lactobac no.41/Bifidobact no.7 (PROBIOTIC-10 ORAL) Take 1 tablet by mouth every morning. - tolterodine ER (DETROL LA) 4 mg 24 hr capsule Take 4 mg by mouth every morning. - Zinc 50 mg tab as needed. - latanoprost (XALATAN) 0.005 % ophthalmic solution Use 1 Drop in both eyes daily at bedtime. - lisinopril-hydroCHLORO thiazide (PRINZIDE, ZESTORETIC) 20-25 mg per tablet Take 1 tablet by mouth every morning. - simvastatin (ZOCOR) 20 mg tablet Take 20 mg by mouth daily at bedtime. - brimonidine (ALPHAGAN) 0.2 % ophthalmic solution Use 1 Drop in the left eye twice daily. GLAUCOMA - cyclobenzaprine (FLEXERIL) 10 mg tablet Take 10 mg by mouth three times daily as needed for muscle spasm. - aspirin, enteric coated (ASPIRIN, ENTERIC COATED) 81 mg EC tablet Take 81 mg by mouth every morning. IS GOING TO CHECK WITH SURGEON AND PCP ABOUT WHEN NEEDS TO STOP ASA - multivit with minerals/lutein (MULTIVITAMIN 50 PLUS ORAL) Last dose 09/26/22 - folic acid 800 mcg tablet Take 800 mcg by mouth every morning. FROM PCP BLOOD NOT CLOT NORMAL PERSON Letter Text [facility] CNTHERAPYon 11-06-2023 CNTHERAPY OT/PT/Speech Visit ([facility]) EMPERATRIZ GHOSH ([id number]) 1950 F Date Time Provider Department 11/06/23 11:00 AM LAURA SHAFFER [facility] [[email or web address]] Date Time Provider Department Center 11/06/2023 11:00 AM [id number], MICHEL*[facility] M Reason for Visit: Physical Therapy [503] Primary Visit Diagnosis:Decreased range of motion of left knee [M25.662] Other Visit Diagnoses:Presence of left artificial knee joint [Z96.652] Weakness [R53.1] Allergies As of Date: 11/06/2023 (No Known Allergies) Date Reviewed: 09/16/2023 Reviewed by: Boubacar Andrews MD - Fully Assessed Prescriptions as of 11/06/2023 - gabapentin (NEURONTIN) 800 mg tablet Take 1 tablet by mouth three times a day for 120 days. - morphine (PF) 5 mg/mL in NaCl 0.9% 20 mL PF MORPHINE 5 MG/ML SIMPLE CONTINUOUS RATE 0.8636 mg/ day PTM 0.0799 mg every 4 hours (max 6 doses per day) Total daily dose 1.3397mg - tiZANidine (ZANAFLEX) 4 mg tablet Take 1 tablet by mouth three times a day as needed. - Acetaminophen 500 mg cap Take 1,000 mg by mouth two times a day as needed. - ascorbic acid, vitamin C, (VITAMIN C) 500 mg tablet Take 500 mg by mouth once daily. - famotidine (PEPCID) 20 mg tablet Take 20 mg by mouth daily at bedtime. - calcium carbonate (CALTRATE) 600 mg calcium (1,500 mg) tab Take by mouth every 24 hours. - omeprazole (PRILOSEC) 40 mg capsule take 1 capsule by mouth every day before a meal - ferrous sulfate (IRON) 325 mg (65 mg iron) tablet Take 325 mg by mouth. - lidocaine-prilocaine (EMLA) 2.5-2.5 % cream Apply to affected area as needed. 1-2 grams to affected area TID PRN - dorzolamide-timolol (COSOPT) 22.3-6.8 mg/mL ophthalmic solution INSTILL 1 DROP IN LEFT EYE TWICE DAILY - cholecalciferol (VITAMIN D3) 5,000 unit tab Take 2,000 Units by mouth once daily. Last dose 09/26/22 - Lactobac no.41/Bifidobact no.7 (PROBIOTIC-10 ORAL) Take 1 tablet by mouth every morning. - tolterodine ER (DETROL LA) 4 mg 24 hr capsule Take 4 mg by mouth every morning. - Zinc 50 mg tab as needed. - latanoprost (XALATAN) 0.005 % ophthalmic solution Use 1 Drop in both eyes daily at bedtime. - lisinopril-hydroCHLORO thiazide (PRINZIDE, ZESTORETIC) 20-25 mg per tablet Take 1 tablet by mouth every morning. - simvastatin (ZOCOR) 20 mg tablet Take 20 mg by mouth daily at bedtime. - brimonidine (ALPHAGAN) 0.2 % ophthalmic solution Use 1 Drop in the left eye twice daily. GLAUCOMA - cyclobenzaprine (FLEXERIL) 10 mg tablet Take 10 mg by mouth three times daily as needed for muscle spasm. - aspirin, enteric coated (ASPIRIN, ENTERIC COATED) 81 mg EC tablet Take 81 mg by mouth every morning. IS GOING TO CHECK WITH SURGEON AND PCP ABOUT WHEN NEEDS TO STOP ASA - multivit with minerals/lutein (MULTIVITAMIN 50 PLUS ORAL) Last dose 09/26/22 - folic acid 800 mcg tablet Take 800 mcg by mouth every morning. FROM PCP BLOOD NOT CLOT NORMAL PERSON [facility] CNTHERAPYon 11-04-2023 CNTHER[facility]Y [facility] EMPERATRIZ GHOSH ([id number]) 1950 F Date Time Provider Department 11/04/23 11:00 AM LAURA SHAFFER [facility] [[email or web address]] Date Time Provider Department Center 11/04/2023 11:00 AM [id number], MICHEL*[facility] M Reason for Visit: Physical Therapy [503] Primary Visit Diagnosis:Decreased range of motion of left knee [M25.662] Other Visit Diagnoses:Presence of left artificial knee joint [Z96.652] Weakness [R53.1] Allergies As of Date: 11/04/2023 (No Known Allergies) Date Reviewed: 09/16/2023 Reviewed by: Boubacar Andrews MD - Fully Assessed Prescriptions as of 11/04/2023 - gabapentin (NEURONTIN) 800 mg tablet Take 1 tablet by mouth three times a day for 120 days. - morphine (PF) 5 mg/mL in NaCl 0.9% 20 mL PF MORPHINE 5 MG/ML SIMPLE CONTINUOUS RATE 0.8636 mg/ day PTM 0.0799 mg every 4 hours (max 6 doses per day) Total daily dose 1.3397mg - tiZANidine (ZANAFLEX) 4 mg tablet Take 1 tablet by mouth three times a day as needed. - Acetaminophen 500 mg cap Take 1,000 mg by mouth two times a day as needed. - ascorbic acid, vitamin C, (VITAMIN C) 500 mg tablet Take 500 mg by mouth once daily. - famotidine (PEPCID) 20 mg tablet Take 20 mg by mouth daily at bedtime. - calcium carbonate (CALTRATE) 600 mg calcium (1,500 mg) tab Take by mouth every 24 hours. - omeprazole (PRILOSEC) 40 mg capsule take 1 capsule by mouth every day before a meal - ferrous sulfate (IRON) 325 mg (65 mg iron) tablet Take 325 mg by mouth. - lidocaine-prilocaine (EMLA) 2.5-2.5 % cream Apply to affected area as needed. 1-2 grams to affected area TID PRN - dorzolamide-timolol (COSOPT) 22.3-6.8 mg/mL ophthalmic solution INSTILL 1 DROP IN LEFT EYE TWICE DAILY - cholecalciferol (VITAMIN D3) 5,000 unit tab Take 2,000 Units by mouth once daily. Last dose 09/26/22 - Lactobac no.41/Bifidobact no.7 (PROBIOTIC-10 ORAL) Take 1 tablet by mouth every morning. - tolterodine ER (DETROL LA) 4 mg 24 hr capsule Take 4 mg by mouth every morning. - Zinc 50 mg tab as needed. - latanoprost (XALATAN) 0.005 % ophthalmic solution Use 1 Drop in both eyes daily at bedtime. - lisinopril-hydroCHLORO thiazide (PRINZIDE, ZESTORETIC) 20-25 mg per tablet Take 1 tablet by mouth every morning. - simvastatin (ZOCOR) 20 mg tablet Take 20 mg by mouth daily at bedtime. - brimonidine (ALPHAGAN) 0.2 % ophthalmic solution Use 1 Drop in the left eye twice daily. GLAUCOMA - cyclobenzaprine (FLEXERIL) 10 mg tablet Take 10 mg by mouth three times daily as needed for muscle spasm. - aspirin, enteric coated (ASPIRIN, ENTERIC COATED) 81 mg EC tablet Take 81 mg by mouth every morning. IS GOING TO CHECK WITH SURGEON AND PCP ABOUT WHEN NEEDS TO STOP ASA - multivit with minerals/lutein (MULTIVITAMIN 50 PLUS ORAL) Last dose 09/26/22 - folic acid 800 mcg tablet Take 800 mcg by mouth every morning. FROM PCP BLOOD NOT CLOT NORMAL PERSON [facility] CNTHERAPYon 11-01-2023 CNTHERAPY OT/PT/Speech Visit ([facility]) EMPERATRIZ GHOSH ([id number]) 1950 F Date Time Provider Department 11/01/23 11:00 AM DWAIN KOLB [facility] [[email or web address]] Date Time Provider Department Center 11/01/2023 11:00 AM [id number], SHEILA*[facility] M Reason for Visit: Physical Therapy [503] Primary Visit Diagnosis:Decreased range of motion of left knee [M25.662] Other Visit Diagnoses:Presence of left artificial knee joint [Z96.652] Weakness [R53.1] Allergies As of Date: 11/01/2023 (No Known Allergies) Date Reviewed: 09/16/2023 Reviewed by: Boubacar Andrews MD - Fully Assessed Prescriptions as of 11/01/2023 - gabapentin (NEURONTIN) 800 mg tablet Take 1 tablet by mouth three times a day for 120 days. - morphine (PF) 5 mg/mL in NaCl 0.9% 20 mL PF MORPHINE 5 MG/ML SIMPLE CONTINUOUS RATE 0.8636 mg/ day PTM 0.0799 mg every 4 hours (max 6 doses per day) Total daily dose 1.3397mg - tiZANidine (ZANAFLEX) 4 mg tablet Take 1 tablet by mouth three times a day as needed. - Acetaminophen 500 mg cap Take 1,000 mg by mouth two times a day as needed. - ascorbic acid, vitamin C, (VITAMIN C) 500 mg tablet Take 500 mg by mouth once daily. - famotidine (PEPCID) 20 mg tablet Take 20 mg by mouth daily at bedtime. - calcium carbonate (CALTRATE) 600 mg calcium (1,500 mg) tab Take by mouth every 24 hours. - omeprazole (PRILOSEC) 40 mg capsule take 1 capsule by mouth every day before a meal - ferrous sulfate (IRON) 325 mg (65 mg iron) tablet Take 325 mg by mouth. - lidocaine-prilocaine (EMLA) 2.5-2.5 % cream Apply to affected area as needed. 1-2 grams to affected area TID PRN - dorzolamide-timolol (COSOPT) 22.3-6.8 mg/mL ophthalmic solution INSTILL 1 DROP IN LEFT EYE TWICE DAILY - cholecalciferol (VITAMIN D3) 5,000 unit tab Take 2,000 Units by mouth once daily. Last dose 09/26/22 - Lactobac no.41/Bifidobact no.7 (PROBIOTIC-10 ORAL) Take 1 tablet by mouth every morning. - tolterodine ER (DETROL LA) 4 mg 24 hr capsule Take 4 mg by mouth every morning. - Zinc 50 mg tab as needed. - latanoprost (XALATAN) 0.005 % ophthalmic solution Use 1 Drop in both eyes daily at bedtime. - lisinopril-hydroCHLORO thiazide (PRINZIDE, ZESTORETIC) 20-25 mg per tablet Take 1 tablet by mouth every morning. - simvastatin (ZOCOR) 20 mg tablet Take 20 mg by mouth daily at bedtime. - brimonidine (ALPHAGAN) 0.2 % ophthalmic solution Use 1 Drop in the left eye twice daily. GLAUCOMA - cyclobenzaprine (FLEXERIL) 10 mg tablet Take 10 mg by mouth three times daily as needed for muscle spasm. - aspirin, enteric coated (ASPIRIN, ENTERIC COATED) 81 mg EC tablet Take 81 mg by mouth every morning. IS GOING TO CHECK WITH SURGEON AND PCP ABOUT WHEN NEEDS TO STOP ASA - multivit with minerals/lutein (MULTIVITAMIN 50 PLUS ORAL) Last dose 09/26/22 - folic acid 800 mcg tablet Take 800 mcg by mouth every morning. FROM PCP BLOOD NOT CLOT NORMAL PERSON [facility] CNTHERAPYon 10-30-2023 CNTHERAPY OT/PT/Speech Visit ([facility] [[email or web address] EMPERATRIZ GHOSH ([id number]) 1950 F Date Time Provider Department 10/30/23 11:00 AM LAURA SHAFFER [facility] [[email or web address]] Date Time Provider Department Center 10/30/2023 11:00 AM [id number], MICHEL*[facility] M Reason for Visit: PT Progress Note [1596] Primary Visit Diagnosis:Decreased range of motion of left knee [M25.662] Other Visit Diagnoses:Presence of left artificial knee joint [Z96.652] Weakness [R53.1] Allergies As of Date: 10/30/2023 (No Known Allergies) Date Reviewed: 09/16/2023 Reviewed by: Boubacar Andrews MD - Fully Assessed Prescriptions as of 11/04/2023 - gabapentin (NEURONTIN) 800 mg tablet Take 1 tablet by mouth three times a day for 120 days. - morphine (PF) 5 mg/mL in NaCl 0.9% 20 mL PF MORPHINE 5 MG/ML SIMPLE CONTINUOUS RATE 0.8636 mg/ day PTM 0.0799 mg every 4 hours (max 6 doses per day) Total daily dose 1.3397mg - tiZANidine (ZANAFLEX) 4 mg tablet Take 1 tablet by mouth three times a day as needed. - Acetaminophen 500 mg cap Take 1,000 mg by mouth two times a day as needed. - ascorbic acid, vitamin C, (VITAMIN C) 500 mg tablet Take 500 mg by mouth once daily. - famotidine (PEPCID) 20 mg tablet Take 20 mg by mouth daily at bedtime. - calcium carbonate (CALTRATE) 600 mg calcium (1,500 mg) tab Take by mouth every 24 hours. - omeprazole (PRILOSEC) 40 mg capsule take 1 capsule by mouth every day before a meal - ferrous sulfate (IRON) 325 mg (65 mg iron) tablet Take 325 mg by mouth. - lidocaine-prilocaine (EMLA) 2.5-2.5 % cream Apply to affected area as needed. 1-2 grams to affected area TID PRN - dorzolamide-timolol (COSOPT) 22.3-6.8 mg/mL ophthalmic solution INSTILL 1 DROP IN LEFT EYE TWICE DAILY - cholecalciferol (VITAMIN D3) 5,000 unit tab Take 2,000 Units by mouth once daily. Last dose 09/26/22 - Lactobac no.41/Bifidobact no.7 (PROBIOTIC-10 ORAL) Take 1 tablet by mouth every morning. - tolterodine ER (DETROL LA) 4 mg 24 hr capsule Take 4 mg by mouth every morning. - Zinc 50 mg tab as needed. - latanoprost (XALATAN) 0.005 % ophthalmic solution Use 1 Drop in both eyes daily at bedtime. - lisinopril-hydroCHLORO thiazide (PRINZIDE, ZESTORETIC) 20-25 mg per tablet Take 1 tablet by mouth every morning. - simvastatin (ZOCOR) 20 mg tablet Take 20 mg by mouth daily at bedtime. - brimonidine (ALPHAGAN) 0.2 % ophthalmic solution Use 1 Drop in the left eye twice daily. GLAUCOMA - cyclobenzaprine (FLEXERIL) 10 mg tablet Take 10 mg by mouth three times daily as needed for muscle spasm. - aspirin, enteric coated (ASPIRIN, ENTERIC COATED) 81 mg EC tablet Take 81 mg by mouth every morning. IS GOING TO CHECK WITH SURGEON AND PCP ABOUT WHEN NEEDS TO STOP ASA - multivit with minerals/lutein (MULTIVITAMIN 50 PLUS ORAL) Last dose 09/26/22 - folic acid 800 mcg tablet Take 800 mcg by mouth every morning. FROM PCP BLOOD NOT CLOT NORMAL PERSON [facility] [place] 10-29-2023 SHANAN Telephone (ADONAY) EMPERATRIZ GHOSH ([id number]) 1950 F Date Time Provider Department 10/29/23 MAYNOR ROBLES During your visit today, we recorded the following information about you: Colleen Leong, RN 10/29/2023 2:44 PM Signed Pt called in today requesting a refill of the Gabapentin, she is at the top dose of the titration schedule, she is taking 300 mg, 3 tabs in the am, 2 tabs at noon and 3 tabs in the pm. Please advise. Colleen Leong RN October 29, 2023 2:44 PM Maynor Robles PA-C 10/29/2023 3:24 PM Signed We will change her to gabapentin 800 mg three times a day. The following approved medication requests have been transmitted electronically. Requested Prescriptions Signed Prescriptions Disp Refills gabapentin (NEURONTIN) 800 mg tablet 90 tablet 3 Sig: Take 1 tablet by mouth three times a day for 120 days. Authorizing Provider: MAYNOR ROBLES PA-C Allergies As of Date: 10/29/2023 (No Known Allergies) Date Reviewed: 09/16/2023 Reviewed by: Boubacar Andrews MD - Fully Assessed Reason for Visit: Medication Problem [65] Primary Visit Diagnosis:Lumbar radiculopathy [M54.16] Order(s):gabapentin (NEURONTIN) 800 mg tabletTake 1 tablet by mouth three times a day for 120 days.Disp: 90 tabletRfl: 3 Prescriptions as of 10/29/2023 - gabapentin (NEURONTIN) 800 mg tablet Take 1 tablet by mouth three times a day for 120 days. - morphine (PF) 5 mg/mL in NaCl 0.9% 20 mL PF MORPHINE 5 MG/ML SIMPLE CONTINUOUS RATE 0.8636 mg/ day PTM 0.0799 mg every 4 hours (max 6 doses per day) Total daily dose 1.3397mg - tiZANidine (ZANAFLEX) 4 mg tablet Take 1 tablet by mouth three times a day as needed. - Acetaminophen 500 mg cap Take 1,000 mg by mouth two times a day as needed. - ascorbic acid, vitamin C, (VITAMIN C) 500 mg tablet Take 500 mg by mouth once daily. - famotidine (PEPCID) 20 mg tablet Take 20 mg by mouth daily at bedtime. - calcium carbonate (CALTRATE) 600 mg calcium (1,500 mg) tab Take by mouth every 24 hours. - omeprazole (PRILOSEC) 40 mg capsule take 1 capsule by mouth every day before a meal - ferrous sulfate (IRON) 325 mg (65 mg iron) tablet Take 325 mg by mouth. - lidocaine-prilocaine (EMLA) 2.5-2.5 % cream Apply to affected area as needed. 1-2 grams to affected area TID PRN - dorzolamide-timolol (COSOPT) 22.3-6.8 mg/mL ophthalmic solution INSTILL 1 DROP IN LEFT EYE TWICE DAILY - cholecalciferol (VITAMIN D3) 5,000 unit tab Take 2,000 Units by mouth once daily. Last dose 09/26/22 - Lactobac no.41/Bifidobact no.7 (PROBIOTIC-10 ORAL) Take 1 tablet by mouth every morning. - tolterodine ER (DETROL LA) 4 mg 24 hr capsule Take 4 mg by mouth every morning. - Zinc 50 mg tab as needed. - latanoprost (XALATAN) 0.005 % ophthalmic solution Use 1 Drop in both eyes daily at bedtime. - lisinopril-hydroCHLORO thiazide (PRINZIDE, ZESTORETIC) 20-25 mg per tablet Take 1 tablet by mouth every morning. - simvastatin (ZOCOR) 20 mg tablet Take 20 mg by mouth daily at bedtime. - brimonidine (ALPHAGAN) 0.2 % ophthalmic solution Use 1 Drop in the left eye twice daily. GLAUCOMA - cyclobenzaprine (FLEXERIL) 10 mg tablet Take 10 mg by mouth three times daily as needed for muscle spasm. - aspirin, enteric coated (ASPIRIN, ENTERIC COATED) 81 mg EC tablet Take 81 mg by mouth every morning. IS GOING TO CHECK WITH SURGEON AND PCP ABOUT WHEN NEEDS TO STOP ASA - multivit with minerals/lutein (MULTIVITAMIN 50 PLUS ORAL) Last dose 09/26/22 - folic acid 800 mcg tablet Take 800 mcg by mouth every morning. FROM PCP BLOOD NOT CLOT NORMAL PERSON Problem List As Of Date 10/29/2023 Noted Resolved Other chronic pain [G89.29] 08/23/2015 Myofascial pain syndrome [M79.18] 03/11/2022 Radiculitis, thoracic [M54.14] 03/11/2022 Acute arthropathy [M12.9] 03/11/2022 Lumbar postlaminectomy syndrome [M96.1] 08/16/2022 Lumbar radiculopathy [M54.16] 08/23/2015 DDD (degenerative disc disease), lumbar [M51.36]08/16/2022 Degeneration of lumbar intervertebral disc [M51*09/05/2022 Obesity, Class III, BMI >= 40 [E66.01] 09/05/2022 Encounter for long-term (current) use of medica*02/15/2017 Encounter for other general examination [Z00.8] 10/04/2021 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] 08/23/2015 Gastroesophageal reflux disease [K21.9] 10/02/2022 Generalized osteoarthritis [M15.9] 08/23/2015 Glaucoma [H40.9] 10/02/2022 Hiatal hernia [K44.9] 10/02/2022 History of hip replacement, total, left [Z96.64*08/23/2015 Hyperlipidemia [E78.5] 10/02/2022 Knee pain, left [M25.562] 04/17/2017 Leg length discrepancy [M21.70] 12/11/2021 Morbid obesity (HCC) [E66.01] 08/23/2015 LINDY (obstructive sleep apnea) [G47.33] 06/06/2022 Sleep apnea [G47.30] 10/02/2022 Osteoarthritis of hip [M16.9] 11/21/2015 Pain in left hip [M25.552] 08/23/2015 Postoperative back pain [G89.18, M54.9] 02/15/2022 (more content not included)... [facility] CNTHERAPYon 10-28-2023 CNTHERAPY OT/PT/Speech Visit ([facility]) EMPERATRIZ GHOSH ([id number]) 1950 F Date Time Provider Department 10/28/23 10:45 AM DWAIN KOLB [facility] [email or web address]] Date Time Provider Department Center 10/28/2023 10:45 AM [id number], SHEILA*[facility] [[email or web address] M Reason for Visit: Physical Therapy [503] Primary Visit Diagnosis:Decreased range of motion of left knee [M25.662] Other Visit Diagnoses:Presence of left artificial knee joint [Z96.652] Weakness [R53.1] Allergies As of Date: 10/28/2023 (No Known Allergies) Date Reviewed: 09/16/2023 Reviewed by: Boubacar Andrews MD - Fully Assessed Prescriptions as of 10/28/2023 - morphine (PF) 5 mg/mL in NaCl 0.9% 20 mL PF MORPHINE 5 MG/ML SIMPLE CONTINUOUS RATE 0.8636 mg/ day PTM 0.0799 mg every 4 hours (max 6 doses per day) Total daily dose 1.3397mg - gabapentin (NEURONTIN) 300 mg capsule Take 1 capsule by mouth as directed for 20 days. Follow titration schedule received and reviewed at office visit. Please call our office for further refills pending outcome of titration - tiZANidine (ZANAFLEX) 4 mg tablet Take 1 tablet by mouth three times a day as needed. - Acetaminophen 500 mg cap Take 1,000 mg by mouth two times a day as needed. - ascorbic acid, vitamin C, (VITAMIN C) 500 mg tablet Take 500 mg by mouth once daily. - famotidine (PEPCID) 20 mg tablet Take 20 mg by mouth daily at bedtime. - calcium carbonate (CALTRATE) 600 mg calcium (1,500 mg) tab Take by mouth every 24 hours. - omeprazole (PRILOSEC) 40 mg capsule take 1 capsule by mouth every day before a meal - ferrous sulfate (IRON) 325 mg (65 mg iron) tablet Take 325 mg by mouth. - lidocaine-prilocaine (EMLA) 2.5-2.5 % cream Apply to affected area as needed. 1-2 grams to affected area TID PRN - dorzolamide-timolol (COSOPT) 22.3-6.8 mg/mL ophthalmic solution INSTILL 1 DROP IN LEFT EYE TWICE DAILY - cholecalciferol (VITAMIN D3) 5,000 unit tab Take 2,000 Units by mouth once daily. Last dose 09/26/22 - Lactobac no.41/Bifidobact no.7 (PROBIOTIC-10 ORAL) Take 1 tablet by mouth every morning. - tolterodine ER (DETROL LA) 4 mg 24 hr capsule Take 4 mg by mouth every morning. - Zinc 50 mg tab as needed. - latanoprost (XALATAN) 0.005 % ophthalmic solution Use 1 Drop in both eyes daily at bedtime. - lisinopril-hydroCHLORO thiazide (PRINZIDE, ZESTORETIC) 20-25 mg per tablet Take 1 tablet by mouth every morning. - gabapentin (NEURONTIN) 300 mg capsule TAKE 1 CAPSULE BY MOUTH THREE TIMES DAILY - simvastatin (ZOCOR) 20 mg tablet Take 20 mg by mouth daily at bedtime. - brimonidine (ALPHAGAN) 0.2 % ophthalmic solution Use 1 Drop in the left eye twice daily. GLAUCOMA - cyclobenzaprine (FLEXERIL) 10 mg tablet Take 10 mg by mouth three times daily as needed for muscle spasm. - aspirin, enteric coated (ASPIRIN, ENTERIC COATED) 81 mg EC tablet Take 81 mg by mouth every morning. IS GOING TO CHECK WITH SURGEON AND PCP ABOUT WHEN NEEDS TO STOP ASA - multivit with minerals/lutein (MULTIVITAMIN 50 PLUS ORAL) Last dose 09/26/22 - folic acid 800 mcg tablet Take 800 mcg by mouth every morning. FROM PCP BLOOD NOT CLOT NORMAL PERSON Normal [facility] .Auto Diffon 09-11-2023 Basophil, Absolute 0.0 10 3/mcL Normal 0.0-0.3 [facility] ([place]) Comment on above: Performed By: #### G FR, ADIFF, BMP, PRO, ANEU, CBC, A1C, MORPH #### [address] [address] Basophils/100 WBC (Bld) 0.3 % Normal 0.0-2.5 [facility] ([place]) Comment on above: Performed By: #### G FR, ADIFF, BMP, PRO, ANEU, CBC, A1C, MORPH #### [address] [address] Eosinophil, Absolute 0.2 10 3/mcL Normal 0.0-0.7 [facility] ([place]) Comment on above: Performed By: #### G FR, ADIFF, BMP, PRO, ANEU, CBC, A1C, MORPH #### [address] [address] Eosinophils/100 WBC (Bld) 1.9 % Normal 0.0-6.0 [facility] ([place]) Comment on above: Performed By: #### G FR, ADIFF, BMP, PRO, ANEU, CBC, A1C, MORPH #### [address] [address] Lymphocyte, Absolute 2.0 10 3/mcL Normal 0.9-4.3 [facility] ([place]) Comment on above: Performed By: #### G FR, ADIFF, BMP, PRO, ANEU, CBC, A1C, MORPH #### [address] [address] Lymphocytes/100 WBC (Bld) 23.4 % Normal 20.0-40.0 [facility] ([place]) Comment on above: Performed By: #### G FR, ADIFF, BMP, PRO, ANEU, CBC, A1C, MORPH #### [address] [address] Monocyte, Absolute 0.8 10 3/mcL Normal 0.1-1.4 [facility] ([place]) Comment on above: Performed By: #### G FR, ADIFF, BMP, PRO, ANEU, CBC, A1C, MORPH #### [address] [address] Monocytes/100 WBC (Bld) 8.8 % Normal 2.0-13.0 [facility] ([place]) Comment on above: Performed By: #### G FR, ADIFF, BMP, PRO, ANEU, CBC, A1C, MORPH #### [address] [address] Neutrophils/100 WBC (Bld) 65.6 % Normal 50.0-75.0 [facility] ([place]) Comment on above: Performed By: #### G FR, ADIFF, BMP, PRO, ANEU, CBC, A1C, MORPH #### [address] [address] .GFRon 09-11-2023 GFR >60 Normal [facility] ([place]) Comment on above: Result Comment: GFR Population mean for , Non- Americans Ages 20-29 = 116 mL/min/1.73 sq.m. Ages 30-39 = 107 mL/min/1.73 sq.m. Ages 40-49 = 99 mL/min/1.73 sq.m. Ages 50-59 = 93 mL/min/1.73 sq.m. Ages 60-69 = 85 mL/min/1.73 sq.m. Ages 70+ = 75 mL/min/1.73 sq.m. Chronic Kidney Disease: Less than 60 mL/min/1.73 square meters End Stage Renal Disease: Less than 15 mL/min/1.73 square meters Performed By: #### G FR, ADIFF, BMP, PRO, ANEU, CBC, A1C, MORPH #### [address] [address] GFR Non- >60 Normal [facility] ([place]) Comment on above: Result Comment: GFR Population mean for , Non- Americans Ages 20-29 = 116 mL/min/1.73 sq.m. Ages 30-39 = 107 mL/min/1.73 sq.m. Ages 40-49 = 99 mL/min/1.73 sq.m. Ages 50-59 = 93 mL/min/1.73 sq.m. Ages 60-69 = 85 mL/min/1.73 sq.m. Ages 70+ = 75 mL/min/1.73 sq.m. Chronic Kidney Disease: Less than 60 mL/min/1.73 square meters End Stage Renal Disease: Less than 15 mL/min/1.73 square meters Performed By: #### G FR, ADIFF, BMP, PRO, ANEU, CBC, A1C, MORPH #### [address] [address] .Morphon 09-11-2023 Anisocytosis Ql (Bld) 1+ Normal [facility] ([place]) Comment on above: Performed By: #### G FR, ADIFF, BMP, PRO, ANEU, CBC, A1C, MORPH #### [address] [address] Ovalocytes 1+ Normal [facility] ([place]) Comment on above: Performed By: #### G FR, ADIFF, BMP, PRO, ANEU, CBC, A1C, MORPH #### [address] [address] Platelet Estimate Normal Normal [facility] ([place]) Comment on above: Performed By: #### G FR, ADIFF, BMP, PRO, ANEU, CBC, A1C, MORPH #### [address] [address] Poik 1+ Normal [facility] ([place]) Comment on above: Performed By: #### G FR, ADIFF, BMP, PRO, ANEU, CBC, A1C, MORPH #### [address] [address] .NEUABSon 09-11-2023 Neutrophil, Absolute 5.6 10 3/mcL Normal 2.3-8.1 [facility] ([place]) Comment on above: Performed By: #### G FR, ADIFF, BMP, PRO, ANEU, CBC, A1C, MORPH #### [place] [id number] A1Con 09-11-2023 HbA1c (Bld) [Mass fraction] 5.4 % Normal 4.0-6.0 [facility] ([place]) Comment on above: Performed By: #### G FR, ADIFF, BMP, PRO, ANEU, CBC, A1C, MORPH #### [place] [address] APTTon 09-11-2023 aPTT Coag (Bld) [Time] 28.1 s Normal 25.0-35.0 [facility] ([place]) Comment on above: Result Comment: For Heparin anticoagulation therapy, the recommended therapeutic range is: 54-77 seconds (APTT Correlation with Anti-Xa therapeutic range of 0.3-0.7 units/ml). PLEASE REFERENCE THE PHARMACY PROTOCOL FOR DOSING. Performed By: #### G FR, ADIFF, BMP, PRO, ANEU, CBC, A1C, MORPH #### [address] [address] Heparin dose (APTT) Unknown Normal [facility] ([place]) Comment on above: Performed By: #### G FR, ADIFF, BMP, PRO, ANEU, CBC, A1C, MORPH #### [address] [address] BMPon 09-11-2023 BUN/Creatinine Ratio 30.1 ratio High 10.0-22.0 [facility] ([place]) Comment on above: Performed By: #### G FR, ADIFF, BMP, PRO, ANEU, CBC, A1C, MORPH #### [address] [address] Calcium [Mass/Vol] 9.3 mg/dL Normal 8.7-10.4 [facility] ([place]) Comment on above: Performed By: #### G FR, ADIFF, BMP, PRO, ANEU, CBC, A1C, MORPH #### [place] [address] Chloride [Moles/Vol] 106 mmol/L Normal 98-110 [facility] ([place]) Comment on above: Performed By: #### G FR, ADIFF, BMP, PRO, ANEU, CBC, A1C, MORPH #### [place] [id number] CO2 [Moles/Vol] 29 mmol/L Normal 22-32 [facility] ([place]) Comment on above: Performed By: #### G FR, ADIFF, BMP, PRO, ANEU, CBC, A1C, MORPH #### [place] [address] Creatinine [Mass/Vol] 0.73 mg/dL Normal 0.50-1.20 [facility] ([place]) Comment on above: Performed By: #### G FR, ADIFF, BMP, PRO, ANEU, CBC, A1C, MORPH #### [address] [address] Electrolyte Balance 7.0 mEq/L Normal 4.0-15.0 [facility] ([place]) Comment on above: Performed By: #### G FR, ADIFF, BMP, PRO, ANEU, CBC, A1C, MORPH #### [address] [address] Glucose [Mass/Vol] 108 mg/dL Normal 82-115 [facility] ([place]) Comment on above: Performed By: #### G FR, ADIFF, BMP, PRO, ANEU, CBC, A1C, MORPH #### [place] [id number] Potassium [Moles/Vol] 4.2 mmol/L Normal 3.5-5.0 [facility] ([place]) Comment on above: Performed By: #### G FR, ADIFF, BMP, PRO, ANEU, CBC, A1C, MORPH #### [place] [id number] Sodium [Moles/Vol] 142 mmol/L Normal 136-145 [facility] ([place]) Comment on above: Performed By: #### G FR, ADIFF, BMP, PRO, ANEU, CBC, A1C, MORPH #### [place] [address] Urea nitrogen [Mass/Vol] 22.0 mg/dL Normal 8.0-22.0 [facility] ([place]) Comment on above: Performed By: #### G FR, ADIFF, BMP, PRO, ANEU, CBC, A1C, MORPH #### [place] [address] CBCon 09-11-2023 Erythrocyte distribution width (RBC) [Ratio] 17.3 % High 11.5-15.5 [facility] ([place]) Comment on above: Performed By: #### G FR, ADIFF, BMP, PRO, ANEU, CBC, A1C, MORPH #### [place] [address] Hematocrit (Bld) [Volume fraction] 43.8 % Normal 34.0-46.0 [facility] ([place]) Comment on above: Performed By: #### G FR, ADIFF, BMP, PRO, ANEU, CBC, A1C, MORPH #### [place] [address] Hgb 14.9 G/dL Normal 12.0-16.0 [facility] ([place]) Comment on above: Performed By: #### G FR, ADIFF, BMP, PRO, ANEU, CBC, A1C, MORPH #### [place] [address] MCH (RBC) [Entitic mass] 31.1 pg Normal 27.0-33.0 [facility] ([place]) Comment on above: Performed By: #### G FR, ADIFF, BMP, PRO, ANEU, CBC, A1C, MORPH #### [address] [address] MCHC 34.1 G/dL Normal 32.0-36.0 [facility] ([place]) Comment on above: Performed By: #### G FR, ADIFF, BMP, PRO, ANEU, CBC, A1C, MORPH #### [place] [address] MCV (RBC) [Entitic vol] 91.2 fL Normal 80.0-99.0 [facility] ([place]) Comment on above: Performed By: #### G FR, ADIFF, BMP, PRO, ANEU, CBC, A1C, MORPH #### [place] [address] Platelet 247 10 3/mcL Normal 150-450 [facility] ([place]) Comment on above: Performed By: #### G FR, ADIFF, BMP, PRO, ANEU, CBC, A1C, MORPH #### [place] [address] Platelet mean volume (Bld) [Entitic vol] 7.4 fL Normal 6.6-10.5 [facility] ([place]) Comment on above: Performed By: #### G FR, ADIFF, BMP, PRO, ANEU, CBC, A1C, MORPH #### [place] [address] RBC 4.80 10 6/mcL Normal 4.10-5.30 [facility] ([place]) Comment on above: Performed By: #### G FR, ADIFF, BMP, PRO, ANEU, CBC, A1C, MORPH #### [place] [address] WBC 8.6 10 3/mcL Normal 4.5-10.8 [facility] ([place]) Comment on above: Performed By: #### G FR, ADIFF, BMP, PRO, ANEU, CBC, A1C, MORPH #### [place] [address] PROon 09-11-2023 INR Coag (PPP) [Relative time] 1.0 {INR} Normal [facility] ([place]) Comment on above: Result Comment: The [place] [employer] (CHEST, 1992, 102:312S-25S) recommended therapeutic range for oral anticoagulant therapy is: LOW RISK: Prophylaxis of venous thrombosis INR: 2.0-3.0 Treatment of pulmonary embolism 2.0-3.0 Prevention of systemic embolism 2.0-3.0 HIGH RISK: Mechanical prosthetic valves 2.5-3.5 Performed By: #### G FR, ADIFF, BMP, PRO, ANEU, CBC, A1C, MORPH #### [facility] [address] [place] [id number] PT Coag (PPP) [Time] 11.3 s Normal 9.0-14.2 [facility] ([place]) Comment on above: Result Comment: Effe ctive 03/09/08, Protime results may be affected by some antibiotics (i.e. Ciprofloxacin, Azithromycin, Bactrim) which may potentiate the action of oral anticoagulants, with further increases in Protime/INR. Performed By: #### G FR, ADIFF, BMP, PRO, ANEU, CBC, A1C, MORPH #### [facility] [address] [place] [address] XR CHEST 2 VIEWSon 4 XR CHEST 2 VIEWS ORIGINAL EXAMINATION: TWO XRAY VIEWS OF THE CHEST 09/11/2023 11:50 am COMPARISON: Chest x-ray, 10/27/2022 HISTORY: ORDERING SYSTEM PROVIDED HISTORY: Reason for Exam: UNILIATERL PRIMARY OSTEOARTHRITIS LEFT KNEE PRESENCE OF LEFT ARTIFICIAL HIP JOINT PRESENCE OF RIGHT ARTHIFICIAL HIP JOINT FINDINGS: The cardiomediastinal contours are stable with atherosclerotic aortic calcification. Retrocardiac hiatal hernia again noted. The lungs are clear bilaterally. There is no evidence of focal consolidation, pulmonary edema, pleural effusion or pneumothorax. There is no blunting of the costophrenic angles on the lateral view. Upper lumbar fusion hardware seen at the edge of the field of view. IMPRESSION: Stable chest with no acute cardiopulmonary process. Interpreted by: Maycol Bowser MD Preliminary Report By: Maycol Bowser MD Electronically signed By Maycol Bowser MD Dictated Date: 09/11/2023 12:29:29 PM Prelim Date: 09/11/2023 12:30:03 PM Sign Date: 09/11/2023 12:30:03 PM Ordering Provider: BLADIMIR HUSTON [facility] ([place]) CT THORAX W/O CONTRASTon CT THORAX W/O CONTRAST ORIGINAL EXAMINATION: CT OF THE CHEST WITHOUT HSCZCMBK71/30/2023 10:32 am TECHNIQUE: CT of the chest was performed without the administration of intravenous contrast. Multiplanar reformatted images are provided for review. Automated exposure control, iterative reconstruction, and/or weight based adjustment of the mA/kV was utilized to reduce the radiation dose to as low as reasonably achievable. This exam was performed according to our departmental dose optimization program, including but not limited to: automated exposure control, adjustment of the mAs and/or kVp according to patient size and/or exam, and use of an iterative reconstruction algorithm where applicable. COMPARISON: CT chest 03/27/2023 HISTORY: ORDERING SYSTEM PROVIDED HISTORY: Reason for Exam: INTERSTITIAL LUNG DISEASE FINDINGS: Evaluation is suboptimal secondary to the lack of IV contrast. No suspicious osseous lesions. Postsurgical changes of the visualized lumbar spine. Stimulator lead is visualized in the lower thoracic central canal. Degenerative changes of the spine. Limited evaluation of the thyroid gland is unremarkable. The trachea and mainstem bronchi appear patent. The heart is normal in size. No pericardial effusion. Coronary artery and aortic atherosclerosis. The great vessels are normal in course caliber. No pathologically enlarged mediastinal or axillary lymph nodes. Hilar lymphadenopathy is not well evaluated on this noncontrast exam. Scattered pleuroparenchymal scarring. Stable 0.4 cm left lower lobe pulmonary nodule. Mild reticulonodular densities in the right upper lobe, mildly improved from prior. Near complete resolution of reticulonodular opacities in the right lower lobe. No new or enlarging suspicious pulmonary nodules or masses are identified. No focal consolidation, pleural effusion, or pneumothorax. Moderate to large hiatal hernia containing about 1/3 of the stomach. The remainder of the visualized upper abdomen is grossly unremarkable. IMPRESSION: The previously described right-sided reticulonodular opacities appear improved from prior, which may indicate residual scarring from remote infectious/inflammator y process rather than an interstitial lung disease. Moderate to large hiatal hernia containing portion of the stomach. I have personally reviewed the images of this examination and agree with the resident's findings and interpretation. Interpreted by: Maynor Gregory MD Preliminary Report By: Agapito Singh Electronically signed By Maynor Gregory MD Dictated Date: 07/25/2023 10:41:09 AM Prelim Date: 07/25/2023 2:14:49 PM Sign Date: 07/25/2023 2:14:49 PM Ordering Provider: [facility] ([place]) CT THORAX W/O CONTRASTon CT THORAX W/O CONTRAST ORIGINAL EXAMINATION: CT CHEST WITHOUT CONTRAST 03/27/2023 9:58 am TECHNIQUE: Multiple-row detector helical CT examination of the thorax without IV contrast. Axial, sagittal, and coronal reconstructed images. This exam was performed according to our departmental dose optimization program, and includes the following measures where applicable: automated exposure control, adjustment of the mAs and/or kVp according to patient size and/or exam, and an iterative reconstruction algorithm. HISTORY: ORDERING SYSTEM PROVIDED HISTORY: Reason for Exam: LEA SOB x yrs, got worse when put on pain meds and pain pump COMPARISON: None FINDINGS: LOWER NECK: No enlarged supraclavicular lymph nodes are present. No actionable thyroid nodule is identified. PULMONARY PARENCHYMA AND AIRWAYS: The trachea and main bronchi are patent. Scattered areas pulmonary and pleural scarring present. Mild chronic reticulonodular interstitial lung disease most prominent in the right upper lobe. No focal consolidation or pneumothorax. 3-4 mm left lower lobe nodule present. PLEURAL SPACE: No pleural effusion. HEART PERICARDIUM: The cardiac chambers are normal in size. Coronary artery calcifications present. No pericardial fluid or thickening is present. MEDIASTINUM JANI: No mediastinal mass is present. No enlarged lymph nodes are present. THORACIC VESSELS: Atherosclerosis of the aorta. OSSEOUS STRUCTURES AND CHEST WALL: No pathologic osseous or soft tissue process is present. Metallic artifact from postsurgical changes seen in the lumbar spine. Moderate to severe degenerative changes of the visualized spine most pronounced at T11 through L1. UPPER ABDOMEN: No pathologic process is present in the imaged portions of the upper abdomen. Moderate hiatal hernia which contains about 1/3 of the stomach. ADDITIONAL: None. IMPRESSION: Upper lobe predominant mild chronic reticulonodular interstitial lung disease, nonspecific, which could be related to inhalational disease, atypical infection, inflammation or connective tissue disease. No superimposed acute abnormality identified. I have personally reviewed the images of this examination and agree with the resident's findings and interpretation. RECOMMENDATIONS: 4 mm left solid pulmonary nodule. Per Fleischner Society Guidelines, no routine follow-up imaging is recommended. These guidelines do not apply to immunocompromised patients and patients with cancer. Follow up in patients with significant comorbidities as clinically warranted. For lung cancer screening, adhere to Lung-RADS guidelines. Reference: Radiology. 2017; 284(1):228-43. Interpreted by: Maynor Gregory MD Preliminary Report By: Wilfrido Baker Electronically signed By Maynor Gregory MD Dictated Date: 03/29/2023 8:04:07 AM Prelim Date: 03/29/2023 10:17:12 AM Sign Date: 03/29/2023 10:17:12 AM Ordering Provider: LUDA ANN [facility] ([facility] Heart Perfusion W stress and W radionuclide Krystyna 06-29-2022 * * *Final Report* * * DATE OF EXAM: Jun 29 2022 11:09AM [facility] 0006 - [place] CARDIAC PERF STRESS/PHARM / PROCEDURE REASON: DYSPNEA ON EXERTION * * * * Physician Interpretation * * * * Stress Supervisor Contingents Report: [facility] Date of service: 06/29/2022 8:16:44 AM Supervising physician: Michele Monreal MD PATIENT: Name: MS. EMPERATRIZ GHOSH Age: 72 years Gender: F The supervising physician was in the department and immediately available. Final ------ PATIENT: Name: MS. EMPERATRIZ GHOSH Age: 72 years Gender: F CONCLUSIONS: 1. There is no scintigraphic evidence for inducible ischemia. 2. No evidence of scarred myocardium. 3. This is a low risk scan. Gated Stress FBP Gated Rest FBP LVEF % 84 88 Prior Study Comparison No prior nuclear cardiology exam available for comparison. Stress test on 06/29/2022 No significant myocardial ischemia No evidence of myocardial infarction Ejection fraction is 84% with normal wall motion EKG is nondiagnostic of myocardial ischemia with Lexiscan infusion. Nuclear Med Report:1-Day Tc-Tetrofosmin Gated SPECT Myocardial Perfusion with Regadenoson Stress: Myocardial perfusion imaging was performed at rest 30 minutes following the IV injection of Tc-99m tetrofosmin. The patient received 0.4 mg of regadenoson, via rapid IV push, immediately followed by Tc-99m tetrofosmin IV. Gated post stress tomographic imaging was performed 30 to 60 minutes later. See administered doses below. [facility] Date of service: 06/29/2022 8:16:44 AM Ordering Physician: LUDA ANN. Requesting Physician: Indication: Dyspnea Interpreting physician: Michele Monreal MD Height: 154.94 cm BSA: 2.14 m Weight: 106.60 kg BMI: 44.4 kg/m Exam Type: Rest Stress Radiopharm: Tc-99m Tetrofosmin Tc-99m Tetrofosmin Dosage(mCi): 13 32.2 Atten Correction: not performed not performed Stress Agent: Regadenoson 0.4mg Supply provided from [facility] Resting Blood Press: 116/80 mmHg Image Quality The overall study imaging quality was deemed to be good. FINDINGS: Stress FBP Gated Stress FBP Gated Rest FBP LVEF: 84 % 88 % ED Volume: 45 ml 42 ml ES Volume: 7 ml 5 ml TID: 1.24 Perfusion Findings Stress FBP - Summed Score=0 All segments demonstrate normal perfusion. Rest FBP - Summed Score=0 All segments demonstrate normal perfusion. Stress FBP Rest FBP Summed Score=0 Summed Score=0 Stress Test Findings: There is no scintigraphic evidence for inducible ischemia. There is no evidence of scarring. Final ------ Stress ECG Report: [facility] Date of service: 06/29/2022 8:16:44 AM Ordering physician: LUDA ANN instrument repair specialist: Damari Garcia RN Interpreting physician: Michele Monreal MD Patient name: MS. EMPERATRIZ GHOSH Age: 72 years Gender: F Height: 154.94 cm BSA: 2.14 m Weight: 106.60 kg BMI: 44.4 kg/m Indication: Dyspnea on exertion Stress ECG Conclusion: Conclusion: Non-diagnostic due to inadequate HR response Comments: 72-year-old female with a history of hypertension, hyperlipidemia, status post laminectomy presents with increasing dyspnea Patient unable to walk on a treadmill Baseline EKG is sinus rhythm with nonspecific ST-T changes Baseline heart rate 96 beats minute baseline blood pressure 116/80 Patient experienced dyspnea with Lexiscan infusion. No chest pain reported. EKG changes were nondiagnostic of myocardial ischemia with Lexiscan infusion. No significant arrhythmias. Nuclear images are pending and to be reported separately Stress ECG Summary: The patient's resting heart rate was 99 bpm and blood pressure was 116/80 mmHg. The patient received regadenoson 0.4 mg IVP over approximately 15 seconds followed immediately by injection of nuclear isotope. The test was terminated due to end of protocol. Other symptoms during the test included SOB. The maximum heart rate was 120 bpm, which is 82% of the predicted heart rate for age. Peak blood pressure was 123/69 mmHg. The double product achieved was [id number]. Medications: Last Used BABY (more content not included)... [facility] RADIOLOGY Provider, Cristiane Hancock - 06/29/2022 * * *Final Report* * * DATE OF EXAM: Jun 29 2022 11:09AM RHN [id number] - NM CARDIAC PERF STRESS/PHARM / PROCEDURE REASON: DYSPNEA ON EXERTION * * * * Physician Interpretation * * * * Stress Supervisor Contingents Report: [facility] Date of service: 06/29/2022 8:16:44 AM Supervising physician: Michele Monreal MD PATIENT: Name: MS. EMPERATRIZ GHOSH Age: 72 years Gender: F The supervising physician was in the department and immediately available. Final ------ PATIENT: Name: MS. EMPERATRIZ GHOSH Age: 72 years Gender: F CONCLUSIONS: 1. There is no scintigraphic evidence for inducible ischemia. 2. No evidence of scarred myocardium. 3. This is a low risk scan. Gated Stress FBP Gated Rest FBP LVEF % 84 88 Prior Study Comparison No prior nuclear cardiology exam available for comparison. Stress test on 06/29/2022 No significant myocardial ischemia No evidence of myocardial infarction Ejection fraction is 84% with normal wall motion EKG is nondiagnostic of myocardial ischemia with Lexiscan infusion. Nuclear Med Report:1-Day Tc-Tetrofosmin Gated SPECT Myocardial Perfusion with Regadenoson Stress: Myocardial perfusion imaging was performed at rest 30 minutes following the IV injection of Tc-99m tetrofosmin. The patient received 0.4 mg of regadenoson, via rapid IV push, immediately followed by Tc-99m tetrofosmin IV. Gated post stress tomographic imaging was performed 30 to 60 minutes later. See administered doses below. [facility] Date of service: 06/29/2022 8:16:44 AM Ordering Physician: LUDA ANN. Requesting Physician: Indication: Dyspnea Interpreting physician: Michele Monreal MD Height: 154.94 cm BSA: 2.14 m Weight: 106.60 kg BMI: 44.4 kg/m Exam Type: Rest Stress Radiopharm: Tc-99m Tetrofosmin Tc-99m Tetrofosmin Dosage(mCi): 13 32.2 Atten Correction: not performed not performed Stress Agent: Regadenoson 0.4mg Supply provided from [facility] Resting Blood Press: 116/80 mmHg Image Quality The overall study imaging quality was deemed to be good. FINDINGS: Stress FBP Gated Stress FBP Gated Rest FBP LVEF: 84 % 88 % ED Volume: 45 ml 42 ml ES Volume: 7 ml 5 ml TID: 1.24 Perfusion Findings Stress FBP - Summed Score=0 All segments demonstrate normal perfusion. Rest FBP - Summed Score=0 All segments demonstrate normal perfusion. Stress FBP Rest FBP Summed Score=0 Summed Score=0 Stress Test Findings: There is no scintigraphic evidence for inducible ischemia. There is no evidence of scarring. Final ------ Stress ECG Report: [facility] Date of service: 06/29/2022 8:16:44 AM Ordering physician: LUDA ANN instrument repair specialist: Damari Garcia RN Interpreting physician: Michele Monreal MD Patient name: MS. EMPERATRIZ GHOSH Age: 72 years Gender: F Height: 154.94 cm BSA: 2.14 m Weight: 106.60 kg BMI: 44.4 kg/m Indication: Dyspnea on exertion Stress ECG Conclusion: Conclusion: Non-diagnostic due to inadequate HR response Comments: 72-year-old female with a history of hypertension, hyperlipidemia, status post laminectomy presents with increasing dyspnea Patient unable to walk on a treadmill Baseline EKG is sinus rhythm with nonspecific ST-T changes Baseline heart rate 96 beats minute baseline blood pressure 116/80 Patient experienced dyspnea with Lexiscan infusion. No chest pain reported. EKG changes were nondiagnostic of myocardial ischemia with Lexiscan infusion. No significant arrhythmias. Nuclear images are pending and to be reported separately Stress ECG Summary: The patient's resting heart rate was 99 bpm and blood pressure was 116/80 mmHg. The patient received regadenoson 0.4 mg IVP over approximately 15 seconds followed immediately by injection of nuclear isotope. The test was terminated due to end of protocol. Other symptoms during the test included SOB. The maximum heart rate was 120 bpm, which is 82% of the predicted heart rate for age. Peak blood pressure was 123/69 mmHg. The double product achieved was [id number]. Medications: Last Used BABY ASPIRIN LUMIFY DETROL LA HYDROCODNE/ACETAMINOPH EN MVI VIT D3 FOLIC ACID LATANOPROST LIDOCAINE PATCH CYCLOBENAPRINE PRILOSEC ZOCOR MELOXICAM GABAPENTIN LISINOPRIL and HCTZ Resting ECG: Normal Sinus Rhythm Symptoms at rest: No symptoms Pharamcologic Protocol: R (more content not included)... [facility] Radiology Study observation (narrative) [facility] NM Heart Perfusion W stress and W radionuclide IVOrdered By: [facility] Provider on 06-29-2022 [facility] No Panel Informationon 06-15 [facility] SPIROMETRY - BASELINE AND PO ST DILATORon 06-15-2022 DLCO (ml/min/mmHg) 17.59 ml/min/mmHg [facility] DLCO/VA (ml/min/mmHg/L) 4.93 ml/min/mmHg/L [facility] ERV BOX (L) 0.09 L [facility] IRO45-32% POST (L/S) 1.37 L/S [facility] XRH97-39% PRE (L/S) 1.36 L/S [facility] FEV1 PRE (L) 1.65 L [facility] FEV1/FVC POST (%) 79 % [facility] FEV1/FVC PRE (%) 77 % [facility] FEV1_POST (L) 1.61 L [facility] FRC Box (L) 1.82 L [facility] FVC POST (L) 2.05 L [facility] FVC PRE (L) 2.13 L [facility] IC BOX (L) 1.69 L [facility] MVV (L/MIN) 54.05 L/MIN [facility] PEF POST (L/S) 6.08 L/S [facility] PEF PRE (L/S) 5.99 L/S [facility] RV Box (L) 1.63 L [facility] RV/TLC Box (%) 48 % [facility] TLC Box (L) 3.38 L [facility] VA (L) 3.58 L [facility] VC (L) BOX 1.78 L [facility] FLUOROSCOPY IN OR/PAIN MGTon 02-08-2022 FLUOROSCOPY IN OR/PAIN MGT FLUOROSCOPY IN OR/PAIN MGT Ordering Physician: Fatoumata Lyn DO FLUOROSCOPY AND RADIOGRAPHS UTILIZED IN PAIN MANAGEMENT Clinical Statement: Lumbar spondylosis FINDINGS: 112.9 second fluoroscopy time utilized. A total 12 radiographs were obtained. IMPRESSION: Documentation of fluoroscopy and radiographs utilized in pain management. Please see clinician's report for complete details. This report was electronically signed by Danilo Pineda MD 02/08/2022 12:48 PM Reported By: DANILO PINEDA M.D. Signed By: DANILO PINEDA M.D. [facility] XR FLUOROSCOPYon 02-08-2022 [facility] CHEST PA/AP AND LATERALon CHEST PA/AP AND LATERAL CHEST PA/AP LATERAL Ordering Physician: Luda Ann DO 01/12/2022 11:03 AM CHEST Clinical Statement: Shortness of breath FINDINGS: PA and lateral chest images were obtained and compared to a prior study dated 10/20/2019. The heart is normal in size. The aorta is tortuous. There is a moderate hiatal hernia. The costophrenic angles are clear. No acute infiltrates or congestion is seen. There are postsurgical changes in the lumbar spine. IMPRESSION: Moderate hiatal hernia. No acute abnormalities. This report was electronically signed by Jori Stroud MD 01/12/2022 2:16 PM Reported By: JORI STROUD M.D. Signed By: JORI STROUD M.D. [facility] PTPN 01-12-2022 PT Progress Note Normal [facility] PTPNon 01-09-2022 PT Progress Note Normal [facility] PTPN Physical Therapy Outpatient Treatment Note Medical Diagnosis: LEG LENGTH DISCREPANCY, SACROILIAC JOINT DSYFUNCTION, LUMBAR SPONDYLOSIS, LUMBAR AND THORACIC RADICULOPATHY, LUMBAR FACET ARTHROPATHY, LUMBAR AND THORACIC DDD, POST-LAMINECTOMY SYNDROME LUMBAR REGION, MYOFASCIAL PAIN SYNDROME, CHRONIC PAIN SYNDROME, H/O BILAT ROJELIO Therapy Diagnosis: Rank Code Description Date of Onset 1 M21.70 Unequal limb length (acquired), unspecified site 12/12/2021 2 M53.3 Sacrococcygeal disorders, not elsewhere 12/12/2021 classified 3 M43.06 Spondylolysis, lumbar region 12/12/2021 4 M54.16 Radiculopathy, lumbar region 12/12/2021 5 M54.14 Radiculopathy, thoracic region 12/12/2021 6 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, lumbar 12/12/2021 region 7 M96.1 Postlaminectomy syndrome, not elsewhere 12/12/2021 classified 8 M47.814 Spondylosis without myelopathy or 12/12/2021 radiculopathy, thoracic region 9 M51.36 Other intervertebral disc degeneration, lumbar 12/12/2021 region 10 M51.34 Other intervertebral disc degeneration, 12/12/2021 thoracic region 11 M79.1 Myalgia 12/12/2021 12 G89.4 Chronic pain syndrome 12/12/2021 13 Z96.641 Presence of right artificial hip joint 12/12/2021 14 Z96.642 Presence of left artificial hip joint 12/12/2021 Demographics: Age: 71Y Gender: Female Medications and Allergies: Significant rehabilitation considerations: Lisinopril HCTZ 20/25 mg, Omeprazole 20 mg, Tolterodine ER 4 mg, Gabpaentin 300 mg, Meloxicam 15 mg, Simvastatin 20 mg, Latanaprost eye drops 0.005%, Dorzolamide HCL/Timolol Maleate 2%/0.5%, Brimonidine 0.2%, Multivitamin, Cyclobenzaprine 10 mg, Vitamin D 2000 mg, Folic Acid 800 mcg, Low dose aspirin 85 pm, Hydrocodone-Acetaminop hen 5-325 mg, Lidocaine-Prilocaine cream Rehabilitation Precautions/Restrictio ns: General Spine Precautions SUBJECTIVE Patient Report: PATIENT REPORTED THAT THE LEFT SIDE OF HER BACK IS ONLY A 4/10 [facility] PATIENT NAME: EMPERATRIZ GHOSH [address] [facility] [address] MEDICAL REC #: [id number] [place] [address] ADMIT DATE: SERVICE DATE: 01/09/22 Physical Therapy Progress Note ATTENDING PHY: Fatoumata Lyn DO THIS DATE FOR PAIN BUT HER RIGHT SIDE IS 7/10. SHE REPORTED THAT HER LEFT SIDE HAS IMPROVED SINCE THE BEGINNING OF THERAPY BUT THE OTHER HAS NOT. Temperature and COVID check completed. Temperature WNL and Negative for COVID exposure and symptoms Patient/Caregiver Goals: Be able to walk with minimum pain Pain: Patient currently has pain. Patient reports a pain level of 7 out of 10. Interventions: STM, THEREX, IFC W/ MH OBJECTIVE General Observation: PT IS PLEASANT AND COOPERATIVE. SHE IS AMB. W/ CANE. PT Exercises: ACTIVITY SETS/REPS Physical Therapy Exercise 1 PASSIVE HIP STRETCHING BRUNILDA X 5 REPS W/ 10 SEC HOLD Exercise 2 SUPINE ABDOMINAL SETS 2 X 15 REPS Exercise 3 SUPINE GLUTE SETS 2 X 15 REPS Exercise 4 SUPINE RESISTED HIP ADDUCTIO 2 X 15 REPS Exercise 5 SUPINE RESISTED HIP ABDUCTIO 2 X 15 REPS Interventions: Manual Therapy: STM TO BILAT LUMBOSACRAL PARASPINALS AND L GLUTEAL/LATERAL PROXIMAL ILIAC CREST LEVEL. PT TOLERATED MODERATE PRESSURE, BUT WAS TENDER TO PALPATION AT THE MID LATERAL L GLUTEAL REGION AND HAD INC. TISSUE RESTRICTION AND TIGHTNESS TO THE SAME. PERFORMED IN RIGHT SIDELYING WITH PILLOW BETWEEN KNEES. SUPINE PASSIVE HAMSTRING STRETCHING, SKTC BILATERALLY X 5 REPS W/ 10 SEC HOLD EACH. ALSO PERFORMED PASSIVE IR/ER STRETCHING BILATERALLY.-NT INITIATED ABDOMINAL SETS X 15 REPS W/ 3 SEC HOLD IN HOOKLYING POSITION. Therapeutic Exercise: SEE GRID Electrical Stimulation (unattended): W/ IFC AT HIGH/LOW SWEEP TO BILATERAL LUMBAR PARASPINALS AND UPPER GLUTES WITH PATIENT IN RIGHT SIDELYING WITH PILLOW BETWEEN KNEES X 15 MINUTES W/ SECURED W/ SHEET. Pain Reassessment: Decrease in pain during session. PATIENT REPORTED PAIN ON HER LEFT SIDE WAS GONE AT THE END OF THE SESSION. Education: No updates required at this time. ASSESSMENT Activity/Participation Problem List and Goals: No updates at this time. Functions/Structures Problem List and Goals: Pain: PT TO REPORT DEC. BILAT LUMBOSACRAL/SI JOINT PAIN AND L GLUTEAL/SACRAL PAIN TO NO GREATER THAN 2-5 OUT OF 10 OVERALL TO IMPROVE STAND/WALK TOLERANCES FOR ADL AND COMMUNITY RELATED TASKS IN 2-4 WEEKS. [facility] PATIENT NAME: EMPERATRIZ GHOSH [address] [facility] [address] MEDICAL REC #: [id number] [place] [address] ADMIT DATE: SERVICE DATE: 01/09/22 Physical Therapy Progress Note ATTENDING PHY: Fatoumata Lyn DO Status: ADDRESSED Range of Motion: PT TO ACHIEVE TRUNK AROM TO WFL/WNL MOST MOTIONS WITH LESS PAIN ON RETURN TO STANDING FROM FLEXED TRUNK POSTURE IN 2-4 WEEKS. Status: ADDRESSED Strength: PT TO (more content not included)... [facility] 01-04-2022 PT Progress Note Normal [facility] PTPN Physical Therapy Outpatient Treatment Note Medical Diagnosis: LEG LENGTH DISCREPANCY, SACROILIAC JOINT DSYFUNCTION, LUMBAR SPONDYLOSIS, LUMBAR AND THORACIC RADICULOPATHY, LUMBAR FACET ARTHROPATHY, LUMBAR AND THORACIC DDD, POST-LAMINECTOMY SYNDROME LUMBAR REGION, MYOFASCIAL PAIN SYNDROME, CHRONIC PAIN SYNDROME, H/O BILAT ROJELIO Therapy Diagnosis: Rank Code Description Date of Onset 1 M21.70 Unequal limb length (acquired), unspecified site 12/12/2021 2 M53.3 Sacrococcygeal disorders, not elsewhere 12/12/2021 classified 3 M43.06 Spondylolysis, lumbar region 12/12/2021 4 M54.16 Radiculopathy, lumbar region 12/12/2021 5 M54.14 Radiculopathy, thoracic region 12/12/2021 6 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, lumbar 12/12/2021 region 7 M96.1 Postlaminectomy syndrome, not elsewhere 12/12/2021 classified 8 M47.814 Spondylosis without myelopathy or 12/12/2021 radiculopathy, thoracic region 9 M51.36 Other intervertebral disc degeneration, lumbar 12/12/2021 region 10 M51.34 Other intervertebral disc degeneration, 12/12/2021 thoracic region 11 M79.1 Myalgia 12/12/2021 12 G89.4 Chronic pain syndrome 12/12/2021 13 Z96.641 Presence of right artificial hip joint 12/12/2021 14 Z96.642 Presence of left artificial hip joint 12/12/2021 Demographics: Age: 71Y Gender: Female Medications and Allergies: Significant rehabilitation considerations: Lisinopril HCTZ 20/25 mg, Omeprazole 20 mg, Tolterodine ER 4 mg, Gabpaentin 300 mg, Meloxicam 15 mg, Simvastatin 20 mg, Latanaprost eye drops 0.005%, Dorzolamide HCL/Timolol Maleate 2%/0.5%, Brimonidine 0.2%, Multivitamin, Cyclobenzaprine 10 mg, Vitamin D 2000 mg, Folic Acid 800 mcg, Low dose aspirin 85 pm, Hydrocodone-Acetaminop hen 5-325 mg, Lidocaine-Prilocaine cream Rehabilitation Precautions/Restrictio ns: General Spine Precautions SUBJECTIVE Patient Report: PATIENT REPORTED THAT HER PAIN IS ABOUT 5/10 THIS DATE. SHE [facility] PATIENT NAME: EMPERATRIZ GHOSH [address] [facility] [address] MEDICAL REC #: [id number] [place] [address] ADMIT DATE: SERVICE DATE: 01/04/22 Physical Therapy Progress Note ATTENDING PHY: Fatoumata Lyn DO REPORTED THAT SHE DOES THINK THAT SHE IS MOVING BETTER. Temperature and COVID check completed. Temperature WNL and Negative for COVID exposure and symptoms Patient/Caregiver Goals: Be able to walk with minimum pain Pain: Patient currently has pain. Patient reports a pain level of 5 out of 10. Interventions: THEREX, STM, IFC W/ OBJECTIVE General Observation: PT IS PLEASANT AND COOPERATIVE. SHE IS AMB. W/ CANE. PT Exercises: ACTIVITY SETS/REPS Physical Therapy Exercise 1 PASSIVE HIP STRETCHING BRUNILDA X 5 REPS W/ 10 SEC HOLD Exercise 2 SUPINE ABDOMINAL SETS 2 X 15 REPS Exercise 3 SUPINE GLUTE SETS 2 X 15 REPS Exercise 4 SUPINE RESISTED HIP ADDUCTIO 2 X 15 REPS Exercise 5 SUPINE RESISTED HIP ABDUCTIO 2 X 15 REPS Interventions: Therapeutic Exercise: SEE GRID Manual Therapy: STM TO BILAT LUMBOSACRAL PARASPINALS AND L GLUTEAL/LATERAL PROXIMAL ILIAC CREST LEVEL. PT TOLERATED MODERATE PRESSURE, BUT WAS TENDER TO PALPATION AT THE MID LATERAL L GLUTEAL REGION AND HAD INC. TISSUE RESTRICTION AND TIGHTNESS TO THE SAME. PERFORMED IN RIGHT SIDELYING WITH PILLOW BETWEEN KNEES. SUPINE PASSIVE HAMSTRING STRETCHING, SKTC BILATERALLY X 5 REPS W/ 10 SEC HOLD EACH. ALSO PERFORMED PASSIVE IR/ER STRETCHING BILATERALLY. INITIATED ABDOMINAL SETS X 15 REPS W/ 3 SEC HOLD IN HOOKLYING POSITION. Electrical Stimulation (unattended): MH W/ IFC AT HIGH/LOW SWEEP TO BILATERAL LUMBAR PARASPINALS AND UPPER GLUTES WITH PATIENT IN RIGHT SIDELYING WITH PILLOW BETWEEN KNEES X 15 MINUTES W/ MH SECURED W/ SHEET. Pain Reassessment: Decrease in pain during session. PATIENT REPORTED LESS PAIN AT THE END OF THE SESSION BUT DID NOT RATE. Education: No updates required at this time. ASSESSMENT Activity/Participation Problem List and Goals: No updates at this time. Functions/Structures Problem List and Goals: No updates at this time. Response to Visit: PATIENT TOLERATED TREATMENT FAIRLY WELL WITH ADDITION OF RESISTED ABDUCTION AND INCREASED REPS W/ ADDUCTION THIS DATE. PATIENT REPORTED LESS PAIN AT THE END OF THE SESSION BUT DID NOT RATE. [facility] PATIENT NAME: EMPERATRIZ GHOSH [address] [facility] [address] MEDICAL REC #: [id number] [place] [address] ADMIT DATE: SERVICE DATE: 01/04/22 Physical Therapy Progress Note ATTENDING AZALIA: Fatoumata Lyn DO Clinical Status Changes: Patient has not experienced significant, unusual or unexpected change in clinical status since their last visit. PLAN Treatment Frequency, Duration, and Interventions: Continue Physical Therapy to achieve goals per previously esta (more content not included)... [facility] PTPN Physical Therapy Outpatient Treatment Note Medical Diagnosis: LEG LENGTH DISCREPANCY, SACROILIAC JOINT DSYFUNCTION, LUMBAR SPONDYLOSIS, LUMBAR AND THORACIC RADICULOPATHY, LUMBAR FACET ARTHROPATHY, LUMBAR AND THORACIC DDD, POST-LAMINECTOMY SYNDROME LUMBAR REGION, MYOFASCIAL PAIN SYNDROME, CHRONIC PAIN SYNDROME, H/O BILAT ROJELIO Therapy Diagnosis: Rank Code Description Date of Onset 1 M21.70 Unequal limb length (acquired), unspecified site 12/12/2021 2 M53.3 Sacrococcygeal disorders, not elsewhere 12/12/2021 classified 3 M43.06 Spondylolysis, lumbar region 12/12/2021 4 M54.16 Radiculopathy, lumbar region 12/12/2021 5 M54.14 Radiculopathy, thoracic region 12/12/2021 6 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, lumbar 12/12/2021 region 7 M96.1 Postlaminectomy syndrome, not elsewhere 12/12/2021 classified 8 M47.814 Spondylosis without myelopathy or 12/12/2021 radiculopathy, thoracic region 9 M51.36 Other intervertebral disc degeneration, lumbar 12/12/2021 region 10 M51.34 Other intervertebral disc degeneration, 12/12/2021 thoracic region 11 M79.1 Myalgia 12/12/2021 12 G89.4 Chronic pain syndrome 12/12/2021 13 Z96.641 Presence of right artificial hip joint 12/12/2021 14 Z96.642 Presence of left artificial hip joint 12/12/2021 Demographics: Age: 71Y Gender: Female Medications and Allergies: Significant rehabilitation considerations: Lisinopril HCTZ 20/25 mg, Omeprazole 20 mg, Tolterodine ER 4 mg, Gabpaentin 300 mg, Meloxicam 15 mg, Simvastatin 20 mg, Latanaprost eye drops 0.005%, Dorzolamide HCL/Timolol Maleate 2%/0.5%, Brimonidine 0.2%, Multivitamin, Cyclobenzaprine 10 mg, Vitamin D 2000 mg, Folic Acid 800 mcg, Low dose aspirin 85 pm, Hydrocodone-Acetaminop hen 5-325 mg, Lidocaine-Prilocaine cream Rehabilitation Precautions/Restrictio ns: General Spine Precautions SUBJECTIVE Patient Report: PATIENT REPORTED THAT SHE CONTINUES TO HAVE SOME PAIN AND RATED [facility] PATIENT NAME: EMPERATRIZ GHOSH [address] [facility] [address] MEDICAL REC #: [id number] [place] [address] ADMIT DATE: SERVICE DATE: 01/02/22 Physical Therapy Progress Note ATTENDING PHY: Fatoumata Lyn DO AT 02/02. Temperature and COVID check completed. Temperature WNL and Negative for COVID exposure and symptoms Patient/Caregiver Goals: Be able to walk with minimum pain Pain: Patient currently has pain. Patient reports a pain level of 6 out of 10. Interventions: STM, THEREX, IFC W/ MH OBJECTIVE General Observation: PT IS PLEASANT AND COOPERATIVE. SHE IS AMB. W/ CANE. PT Exercises: ACTIVITY SETS/REPS Physical Therapy Exercise 1 PASSIVE HIP STRETCHING BRUNILDA X 5 REPS W/ 10 SEC HOLD Exercise 2 SUPINE ABDOMINAL SETS 2 X 15 REPS Exercise 3 SUPINE GLUTE SETS 2 X 15 REPS Exercise 4 SUPINE RESISTED ADDUCTION X 10 REPS Interventions: Manual Therapy: STM TO BILAT LUMBOSACRAL PARASPINALS AND L GLUTEAL/LATERAL PROXIMAL ILIAC CREST LEVEL. PT TOLERATED MODERATE PRESSURE, BUT WAS TENDER TO PALPATION AT THE MID LATERAL L GLUTEAL REGION AND HAD INC. TISSUE RESTRICTION AND TIGHTNESS TO THE SAME. PERFORMED IN RIGHT SIDELYING WITH PILLOW BETWEEN KNEES. SUPINE PASSIVE HAMSTRING STRETCHING, SKTC BILATERALLY X 5 REPS W/ 10 SEC HOLD EACH. ALSO PERFORMED PASSIVE IR/ER STRETCHING BILATERALLY. INITIATED ABDOMINAL SETS X 15 REPS W/ 3 SEC HOLD IN HOOKLYING POSITION. Electrical Stimulation (unattended): MH W/ IFC AT HIGH/LOW SWEEP TO BILATERAL LUMBAR PARASPINALS AND UPPER GLUTES WITH PATIENT IN RIGHT SIDELYING WITH PILLOW BETWEEN KNEES X 15 MINUTES W/ MH SECURED W/ SHEET. Pain Reassessment: Decrease in pain during session. PATIENT REPORTED DECREASE IN PAIN TO 2-3/10. Education: No updates required at this time. ASSESSMENT Activity/Participation Problem List and Goals: No updates at this time. Functions/Structures Problem List and Goals: Pain: PT TO REPORT DEC. BILAT LUMBOSACRAL/SI JOINT PAIN AND L GLUTEAL/SACRAL PAIN TO NO GREATER THAN 2-5 OUT OF 10 OVERALL TO IMPROVE STAND/WALK TOLERANCES FOR ADL AND COMMUNITY RELATED TASKS IN 2-4 WEEKS. Status: ADDRESSED Range of Motion: PT TO ACHIEVE TRUNK AROM TO WFL/WNL MOST MOTIONS WITH LESS PAIN [facility] PATIENT NAME: EMPERATRIZ GHOSH [address] [facility] [address] MEDICAL REC #: [id number] [place] [address] ADMIT DATE: SERVICE DATE: 01/02/22 Physical Therapy Progress Note ATTENDING PHY: Fatoumata Lyn DO ON RETURN TO STANDING FROM FLEXED TRUNK POSTURE IN 2-4 WEEKS. Status: NOT ADDRESSED Strength: PT TO ACHIEVE TO AT LEAST 4/5 ABDOMINAL AND 4-4+/5 BILAT HIP/TRUNK STRENGTHS TO IMPROVE HER CORE STABILITY/LESSEN HER LUMBOSACRAL PAIN BY ANY AMOUNT Status: ADDRESSED Other: PT TO BE KNOWLEDGEABLE IN ABDOMINAL, GLUTEAL, HIP STRENGTHENING EXERCISES AND ROM (more content not included)... Normal [facility] PTPNon 12-28-2021 PT Progress Note Normal [facility] Physical Therapy Outpatient Treatment Note Medical Diagnosis: LEG LENGTH DISCREPANCY, SACROILIAC JOINT DSYFUNCTION, LUMBAR SPONDYLOSIS, LUMBAR AND THORACIC RADICULOPATHY, LUMBAR FACET ARTHROPATHY, LUMBAR AND THORACIC DDD, POST-LAMINECTOMY SYNDROME LUMBAR REGION, MYOFASCIAL PAIN SYNDROME, CHRONIC PAIN SYNDROME, H/O BILAT ROJELIO Therapy Diagnosis: Rank Code Description Date of Onset 1 M21.70 Unequal limb length (acquired), unspecified site 12/12/2021 2 M53.3 Sacrococcygeal disorders, not elsewhere 12/12/2021 classified 3 M43.06 Spondylolysis, lumbar region 12/12/2021 4 M54.16 Radiculopathy, lumbar region 12/12/2021 5 M54.14 Radiculopathy, thoracic region 12/12/2021 6 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, lumbar 12/12/2021 region 7 M96.1 Postlaminectomy syndrome, not elsewhere 12/12/2021 classified 8 M47.814 Spondylosis without myelopathy or 12/12/2021 radiculopathy, thoracic region 9 M51.36 Other intervertebral disc degeneration, lumbar 12/12/2021 region 10 M51.34 Other intervertebral disc degeneration, 12/12/2021 thoracic region 11 M79.1 Myalgia 12/12/2021 12 G89.4 Chronic pain syndrome 12/12/2021 13 Z96.641 Presence of right artificial hip joint 12/12/2021 14 Z96.642 Presence of left artificial hip joint 12/12/2021 Demographics: Age: 71Y Gender: Female Medications and Allergies: Significant rehabilitation considerations: Lisinopril HCTZ 20/25 mg, Omeprazole 20 mg, Tolterodine ER 4 mg, Gabpaentin 300 mg, Meloxicam 15 mg, Simvastatin 20 mg, Latanaprost eye drops 0.005%, Dorzolamide HCL/Timolol Maleate 2%/0.5%, Brimonidine 0.2%, Multivitamin, Cyclobenzaprine 10 mg, Vitamin D 2000 mg, Folic Acid 800 mcg, Low dose aspirin 85 pm, Hydrocodone-Acetaminop hen 5-325 mg, Lidocaine-Prilocaine cream Rehabilitation Precautions/Restrictio ns: General Spine Precautions SUBJECTIVE Patient Report: PATIENT REPORTED THAT WHEN SHE LEFT THE LAST SESSION SHE FELT [facility] PATIENT NAME: EMPERATRIZ GHOSH [address] [facility] [address] MEDICAL REC #: [id number] [place] [address] ADMIT DATE: SERVICE DATE: 12/28/21 Physical Therapy Progress Note ATTENDING PHY: Fatuomata Lyn DO SOME RELIEF FOR A COUPLE HOURS. SHE REPORTED THAT SHE CONTINUES TO FEEL TIGHT IN HER LEFT LOW BACK. Temperature and COVID check completed. Temperature WNL and Negative for COVID exposure and symptoms Patient/Caregiver Goals: Be able to walk with minimum pain Pain: Patient currently has pain. Patient reports a pain level of 5 out of 10. Interventions: THEREX, IFC W/ MH, THEREX OBJECTIVE General Observation: PT IS PLEASANT AND COOPERATIVE. SHE IS AMB. W/ CANE. Interventions: Manual Therapy: STM TO BILAT LUMBOSACRAL PARASPINALS AND L GLUTEAL/LATERAL PROXIMAL ILIAC CREST LEVEL. PT TOLERATED MODERATE PRESSURE, BUT WAS TENDER TO PALPATION AT THE MID LATERAL L GLUTEAL REGION AND HAD INC. TISSUE RESTRICTION AND TIGHTNESS TO THE SAME. PERFORMED IN RIGHT SIDELYING WITH PILLOW BETWEEN KNEES. SUPINE PASSIVE HAMSTRING STRETCHING, SKTC BILATERALLY X 3 REPS W/ 20 SEC HOLD EACH. ALSO PERFORMED PASSIVE IR/ER STRETCHING BILATERALLY. INITIATED ABDOMINAL SETS X 15 REPS W/ 3 SEC HOLD IN HOOKLYING POSITION. Electrical Stimulation (unattended): MH W/ IFC AT HIGH/LOW SWEEP TO BILATERAL LUMBAR PARASPINALS AND UPPER GLUTES WITH PATIENT IN RIGHT SIDELYING WITH PILLOW BETWEEN KNEES X 15 MINUTES W/ MH SECURED W/ SHEET. Pain Reassessment: Decrease in pain during session. PATIENT REPORTED LESS PAIN AT THE END OF THE SESSION BUT DID NOT RATE. Education: No updates required at this time. ASSESSMENT Activity/Participation Problem List and Goals: No updates at this time. Functions/Structures Problem List and Goals: No updates at this time. Response to Visit: PATIENT TOLERATED TREATMENT FAIRLY WELL WITH TOLERANCE TO BILATERAL PASSIVE STRETCHING AGAIN THIS DATE AND ABDOMINAL SETS IN SUPINE. PATIENT DID REPORT SLIGHTLY LESS PAIN AT THE END OF THE SESSION. Clinical Status Changes: Patient has not experienced significant, unusual or unexpected change in clinical status since their last visit. PLAN Treatment Frequency, Duration, and Interventions: Continue Physical Therapy to achieve goals per previously established Plan of Care. STM, MODALITY USE NEEDED, POSTURE AND BODY MECHANICS EDUCATION, ABDOMINAL SETS, GLUTEAL SETS, ISOMETRIC HIP FLEXOR AND ADDUCTOR STRENGTHENING, GENTLE TRUNK/HIP STRETCHING PT TOLERATES, HEP [facility] PATIENT NAME: EMPERATRIZ GHOSH [facility] [address] MEDICAL REC #: [id number] [place] [address] ADMIT DATE: SERVICE DATE: 12/28/21 Physical Therapy Progress Note ATTENDING PHY: Fatoumata Lyn DO Development of Plan of Care: There was no change to plan of care today. The pat (more content not included)... Normal [facility] PTPN 12-26-2021 PT Progress Note Normal [facility] PTPN Physical Therapy Outpatient Treatment Note Medical Diagnosis: LEG LENGTH DISCREPANCY, SACROILIAC JOINT DSYFUNCTION, LUMBAR SPONDYLOSIS, LUMBAR AND THORACIC RADICULOPATHY, LUMBAR FACET ARTHROPATHY, LUMBAR AND THORACIC DDD, POST-LAMINECTOMY SYNDROME LUMBAR REGION, MYOFASCIAL PAIN SYNDROME, CHRONIC PAIN SYNDROME, H/O BILAT ROJELIO Therapy Diagnosis: Rank Code Description Date of Onset 1 M21.70 Unequal limb length (acquired), unspecified site 12/12/2021 2 M53.3 Sacrococcygeal disorders, not elsewhere 12/12/2021 classified 3 M43.06 Spondylolysis, lumbar region 12/12/2021 4 M54.16 Radiculopathy, lumbar region 12/12/2021 5 M54.14 Radiculopathy, thoracic region 12/12/2021 6 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, lumbar 12/12/2021 region 7 M96.1 Postlaminectomy syndrome, not elsewhere 12/12/2021 classified 8 M47.814 Spondylosis without myelopathy or 12/12/2021 radiculopathy, thoracic region 9 M51.36 Other intervertebral disc degeneration, lumbar 12/12/2021 region 10 M51.34 Other intervertebral disc degeneration, 12/12/2021 thoracic region 11 M79.1 Myalgia 12/12/2021 12 G89.4 Chronic pain syndrome 12/12/2021 13 Z96.641 Presence of right artificial hip joint 12/12/2021 14 Z96.642 Presence of left artificial hip joint 12/12/2021 Demographics: Age: 71Y Gender: Female Medications and Allergies: Significant rehabilitation considerations: Lisinopril HCTZ 20/25 mg, Omeprazole 20 mg, Tolterodine ER 4 mg, Gabpaentin 300 mg, Meloxicam 15 mg, Simvastatin 20 mg, Latanaprost eye drops 0.005%, Dorzolamide HCL/Timolol Maleate 2%/0.5%, Brimonidine 0.2%, Multivitamin, Cyclobenzaprine 10 mg, Vitamin D 2000 mg, Folic Acid 800 mcg, Low dose aspirin 85 pm, Hydrocodone-Acetaminop hen 5-325 mg, Lidocaine-Prilocaine cream Rehabilitation Precautions/Restrictio ns: General Spine Precautions SUBJECTIVE Patient Report: PATIENT REPORTED THAT SHE CONTINUES TO HAVE PAIN AND TIGHTNESS. [facility] PATIENT NAME: EMPERATRIZ GHOSH0 [facility] [address] MEDICAL REC #: [id number] [place] [address] ADMIT DATE: SERVICE DATE: 12/26/21 Physical Therapy Progress Note ATTENDING PHY: Fatoumata Lyn DO Temperature and COVID check completed. Temperature WNL and Negative for COVID exposure and symptoms Patient/Caregiver Goals: Be able to walk with minimum pain Pain: Patient currently has pain. Patient reports a pain level of 6 out of 10. Interventions: STM, IFC W/ OBJECTIVE General Observation: PT IS PLEASANT AND COOPERATIVE. SHE IS AMB. W/ CANE. Interventions: Manual Therapy: STM TO BILAT LUMBOSACRAL PARASPINALS AND L GLUTEAL/LATERAL PROXIMAL ILIAC CREST LEVEL. PT TOLERATED MODERATE PRESSURE, BUT WAS TENDER TO PALPATION AT THE MID LATERAL L GLUTEAL REGION AND HAD INC. TISSUE RESTRICTION AND TIGHTNESS TO THE SAME. PERFORMED IN RIGHT SIDELYING WITH PILLOW BETWEEN KNEES. SUPINE PASSIVE HAMSTRING STRETCHING BILATERALLY X 3 REPS W/ 20 SEC HOLD. ALSO PERFORMED PASSIVE IR/ER STRETCHING BILATERALLY. INITIATED ABDOMINAL SETS X 15 REPS W/ 3 SEC HOLD IN HOOKLYING POSITION. Electrical Stimulation (unattended): MH W/ IFC AT HIGH/LOW SWEEP TO BILATERAL LUMBAR PARASPINALS AND UPPER GLUTES WITH PATIENT IN RIGHT SIDELYING WITH PILLOW BETWEEN KNEES X 15 MINUTES W/ MH SECURED W/ SHEET. Pain Reassessment: Decrease in pain during session. PATIENT REPORTED THAT HER PAIN DECREASED TO 3/10. Education: No updates required at this time. ASSESSMENT Activity/Participation Problem List and Goals: No updates at this time. Functions/Structures Problem List and Goals: Pain: PT TO REPORT DEC. BILAT LUMBOSACRAL/SI JOINT PAIN AND L GLUTEAL/SACRAL PAIN TO NO GREATER THAN 2-5 OUT OF 10 OVERALL TO IMPROVE STAND/WALK TOLERANCES FOR ADL AND COMMUNITY RELATED TASKS IN 2-4 WEEKS. Status: ADDRESSED Range of Motion: PT TO ACHIEVE TRUNK AROM TO WFL/WNL MOST MOTIONS WITH LESS PAIN ON RETURN TO STANDING FROM FLEXED TRUNK POSTURE IN 2-4 WEEKS. Status: NOT ADDRESSED Strength: PT TO ACHIEVE TO AT LEAST 4/5 ABDOMINAL AND 4-4+/5 BILAT HIP/TRUNK STRENGTHS TO IMPROVE HER CORE STABILITY/LESSEN HER LUMBOSACRAL PAIN BY ANY AMOUNT Status: ADDRESSED Other: PT TO BE KNOWLEDGEABLE IN ABDOMINAL, GLUTEAL, HIP STRENGTHENING EXERCISES [facility] PATIENT NAME: EMPERATRIZ GHOSH [address] [facility] [address] MEDICAL REC #: [id number] [place] [address] ADMIT DATE: SERVICE DATE: 12/26/21 Physical Therapy Progress Note ATTENDING PHY: Fatoumata Lyn DO AND ROM EXERCISES IF TOLERATED AND DO NOT EXACERBATE HER PAIN LEVEL. EDUCATE PT ON PROPER POSTURES AND BODY MECHANICS FOR LOWER BACK FOR ADL TASKS TO REDUCE SYMPTOM EXACERBATION BY ANY AMOUNT. Status: ADDRESSED Response to Visit: PATIENT TOLERATED TREATMENT FAIRLY WELL (more content not included)... Normal [facility] 12-20-2021 PT Progress Note Normal [facility] PTPN Physical Therapy Outpatient Treatment Note Medical Diagnosis: LEG LENGTH DISCREPANCY, SACROILIAC JOINT DSYFUNCTION, LUMBAR SPONDYLOSIS, LUMBAR AND THORACIC RADICULOPATHY, LUMBAR FACET ARTHROPATHY, LUMBAR AND THORACIC DDD, POST-LAMINECTOMY SYNDROME LUMBAR REGION, MYOFASCIAL PAIN SYNDROME, CHRONIC PAIN SYNDROME, H/O BILAT ROJELIO Therapy Diagnosis: Rank Code Description Date of Onset 1 M21.70 Unequal limb length (acquired), unspecified site 12/12/2021 2 M53.3 Sacrococcygeal disorders, not elsewhere 12/12/2021 classified 3 M43.06 Spondylolysis, lumbar region 12/12/2021 4 M54.16 Radiculopathy, lumbar region 12/12/2021 5 M54.14 Radiculopathy, thoracic region 12/12/2021 6 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, lumbar 12/12/2021 region 7 M96.1 Postlaminectomy syndrome, not elsewhere 12/12/2021 classified 8 M47.814 Spondylosis without myelopathy or 12/12/2021 radiculopathy, thoracic region 9 M51.36 Other intervertebral disc degeneration, lumbar 12/12/2021 region 10 M51.34 Other intervertebral disc degeneration, 12/12/2021 thoracic region 11 M79.1 Myalgia 12/12/2021 12 G89.4 Chronic pain syndrome 12/12/2021 13 Z96.641 Presence of right artificial hip joint 12/12/2021 14 Z96.642 Presence of left artificial hip joint 12/12/2021 Demographics: Age: 71Y Gender: Female Medications and Allergies: Significant rehabilitation considerations: Lisinopril HCTZ 20/25 mg, Omeprazole 20 mg, Tolterodine ER 4 mg, Gabpaentin 300 mg, Meloxicam 15 mg, Simvastatin 20 mg, Latanaprost eye drops 0.005%, Dorzolamide HCL/Timolol Maleate 2%/0.5%, Brimonidine 0.2%, Multivitamin, Cyclobenzaprine 10 mg, Vitamin D 2000 mg, Folic Acid 800 mcg, Low dose aspirin 85 pm, Hydrocodone-Acetaminop hen 5-325 mg, Lidocaine-Prilocaine cream Rehabilitation Precautions/Restrictio ns: General Spine Precautions SUBJECTIVE Patient Report: PATIENT REPORTED THAT SHE FELT SOME RELIEF FOR A COUPLE HOURS [facility] PATIENT NAME: EMPERATRIZ GHOSH [address] [facility] [address] MEDICAL REC #: [id number] [place] [address] ADMIT DATE: SERVICE DATE: 12/20/21 Physical Therapy Progress Note ATTENDING PHY: Fatoumata Lyn DO AFTER THERAPY ON SATURDAY BUT THEN HER PAIN RETURNED AND YESTERDAY IT WAS INCREASED, HOWEVER SHE RPEORTED THAT SHE FELT BETTER TODAY ESPECIALLY ON THE LEFT SIDE OF HER LOW BACK. Temperature and COVID check completed. Temperature WNL and Negative for COVID exposure and symptoms Patient/Caregiver Goals: Be able to walk with minimum pain Pain: Patient currently has pain. Patient reports a pain level of 5 out of 10. Interventions: STM, IFC W/ MH OBJECTIVE General Observation: PT IS PLEASANT AND COOPERATIVE. SHE IS AMB. W/ CANE. Interventions: Manual Therapy: STM TO BILAT LUMBOSACRAL PARASPINALS AND L GLUTEAL/LATERAL PROXIMAL ILIAC CREST LEVEL. PT TOLERATED MODERATE PRESSURE, BUT WAS TENDER TO PALPATION AT THE MID LATERAL L GLUTEAL REGION AND HAD INC. TISSUE RESTRICTION AND TIGHTNESS TO THE SAME. PERFORMED IN RIGHT SIDELYING WITH PILLOW BETWEEN KNEES. Electrical Stimulation (unattended): W/ IFC AT HIGH/LOW SWEEP TO BILATERAL LUMBAR PARASPINALS AND UPPER GLUTES WITH PATIENT IN RIGHT SIDELYING WITH PILLOW BETWEEN KNEES X 15 MINUTES W/ MH SECURED W/ SHEET. Pain Reassessment: No significant change in pain during session. Education: No updates required at this time. ASSESSMENT Activity/Participation Problem List and Goals: No updates at this time. Functions/Structures Problem List and Goals: No updates at this time. Response to Visit: PATIENT TOLERATED MODALITIES WELL THIS DATE WITH PATIENT REPORTING TENDERNESS BUT TOLERATING MODERATE PRESSURE DURING THE STM. Clinical Status Changes: Patient has not experienced significant, unusual or unexpected change in clinical status since their last visit. PLAN Treatment Frequency, Duration, and Interventions: Continue Physical Therapy to achieve goals per previously established Plan of Care. STM, MODALITY USE NEEDED, POSTURE AND BODY MECHANICS EDUCATION, ABDOMINAL SETS, GLUTEAL SETS, ISOMETRIC HIP FLEXOR AND ADDUCTOR STRENGTHENING, GENTLE TRUNK/HIP STRETCHING PT TOLERATES, HEP Development of Plan of Care: There was no change to plan of care today. The patient has been instructed to contact our clinic if any questions or problems should arise. Visit Number: Today's visit is number 3 [facility] PATIENT NAME: EMPERATRIZ GHOSH [address] [facility] [address] MEDICAL REC #: [id number] [place] [address] ADMIT DATE: SERVICE DATE: 12/20/21 Physical Therapy Progress Note ATTENDING PHY: Fatoumata Lyn DO Services: Total Billed: 40 minutes (Timed: 40, Untimed: 0) 15.00 Timed: [38411] PT estim unattended EA 15 min 25.00 Timed: [96370] PT -MANU (more content not included)... Normal [facility] 12-18-2021 PT Progress Note Normal [facility] Physical Therapy Outpatient Treatment Note Medical Diagnosis: LEG LENGTH DISCREPANCY, SACROILIAC JOINT DSYFUNCTION, LUMBAR SPONDYLOSIS, LUMBAR AND THORACIC RADICULOPATHY, LUMBAR FACET ARTHROPATHY, LUMBAR AND THORACIC DDD, POST-LAMINECTOMY SYNDROME LUMBAR REGION, MYOFASCIAL PAIN SYNDROME, CHRONIC PAIN SYNDROME, H/O BILAT ROJELIO Therapy Diagnosis: Rank Code Description Date of Onset 1 M21.70 Unequal limb length (acquired), unspecified site 12/12/2021 2 M53.3 Sacrococcygeal disorders, not elsewhere 12/12/2021 classified 3 M43.06 Spondylolysis, lumbar region 12/12/2021 4 M54.16 Radiculopathy, lumbar region 12/12/2021 5 M54.14 Radiculopathy, thoracic region 12/12/2021 6 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, lumbar 12/12/2021 region 7 M96.1 Postlaminectomy syndrome, not elsewhere 12/12/2021 classified 8 M47.814 Spondylosis without myelopathy or 12/12/2021 radiculopathy, thoracic region 9 M51.36 Other intervertebral disc degeneration, lumbar 12/12/2021 region 10 M51.34 Other intervertebral disc degeneration, 12/12/2021 thoracic region 11 M79.1 Myalgia 12/12/2021 12 G89.4 Chronic pain syndrome 12/12/2021 13 Z96.641 Presence of right artificial hip joint 12/12/2021 14 Z96.642 Presence of left artificial hip joint 12/12/2021 Demographics: Age: 71Y Gender: Female Medications and Allergies: Significant rehabilitation considerations: Lisinopril HCTZ 20/25 mg, Omeprazole 20 mg, Tolterodine ER 4 mg, Gabpaentin 300 mg, Meloxicam 15 mg, Simvastatin 20 mg, Latanaprost eye drops 0.005%, Dorzolamide HCL/Timolol Maleate 2%/0.5%, Brimonidine 0.2%, Multivitamin, Cyclobenzaprine 10 mg, Vitamin D 2000 mg, Folic Acid 800 mcg, Low dose aspirin 85 pm, Hydrocodone-Acetaminop hen 5-325 mg, Lidocaine-Prilocaine cream Rehabilitation Precautions/Restrictio ns: General Spine Precautions SUBJECTIVE Patient Report: PATIENT REPORTED THAT HER PAIN IS ABOUT 8/10 WHEN SHE IS UP AND [facility] PATIENT NAME: EMPERATRIZ GHOSH [address] [facility] [address] MEDICAL REC #: [id number] [place] [address] ADMIT DATE: SERVICE DATE: 12/18/21 Physical Therapy Progress Note ATTENDING PHY: Alexis Lynsyl San DO MOVING. SHE REPORTED THAT WHEN SHE IS AT REST OR LYING DOWN IT DECREASES TO 1/10. PATIENT REPORTED THAT DR. LYN DID NOT SEND HER TO THERAPY FOR CORE STRENGTHENING BECAUSE SHE IS UNABLE TO PERFORM A GOOD ENOUGH PROGRAM TO MAKE A DIFFERENCE. Temperature and COVID check completed. Temperature WNL and Negative for COVID exposure and symptoms Patient/Caregiver Goals: Be able to walk with minimum pain Pain: Patient currently has pain. Patient reports a pain level of 8 out of 10. Interventions: STM, IFC W/ MH OBJECTIVE General Observation: PT IS PLEASANT AND COOPERATIVE. SHE IS AMB. W/ CANE. Interventions: Manual Therapy: STM TO BILAT LUMBOSACRAL PARASPINALS AND L GLUTEAL/LATERAL PROXIMAL ILIAC CREST LEVEL. PT TOLERATED MODERATE PRESSURE, BUT WAS TENDER TO PALPATION AT THE MID LATERAL L GLUTEAL REGION AND HAD INC. TISSUE RESTRICTION AND TIGHTNESS TO THE SAME. PERFORMED IN RIGHT SIDELYING WITH PILLOW BETWEEN KNEES. Electrical Stimulation (unattended): W/ IFC AT HIGH/LOW SWEEP TO BILATERAL LUMBAR PARASPINALS AND UPPER GLUTES WITH PATIENT IN RIGHT SIDELYING WITH PILLOW BETWEEN KNEES X 15 MINUTES W/ MH SECURED W/ SHEET. Pain Reassessment: Decrease in pain during session. PATIENT REPORTED THAT SHE THOUGHT THAT SHE WAS FEELING A LITTLE BETTER BUT WAS NOT SURE. Education: No updates required at this time. ASSESSMENT Activity/Participation Problem List and Goals: No updates at this time. Functions/Structures Problem List and Goals: Pain: PT TO REPORT DEC. BILAT LUMBOSACRAL/SI JOINT PAIN AND L GLUTEAL/SACRAL PAIN TO NO GREATER THAN 2-5 OUT OF 10 OVERALL TO IMPROVE STAND/WALK TOLERANCES FOR ADL AND COMMUNITY RELATED TASKS IN 2-4 WEEKS. Status: ADDRESSED Range of Motion: PT TO ACHIEVE TRUNK AROM TO WFL/WNL MOST MOTIONS WITH LESS PAIN ON RETURN TO STANDING FROM FLEXED TRUNK POSTURE IN 2-4 WEEKS. Status: NOT ADDRESSED Strength: PT TO ACHIEVE TO AT LEAST 4/5 ABDOMINAL AND 4-4+/5 BILAT HIP/TRUNK STRENGTHS TO IMPROVE HER CORE STABILITY/LESSEN HER LUMBOSACRAL PAIN BY ANY AMOUNT Status: NOT ADDRESSED Other: PT TO BE KNOWLEDGEABLE IN ABDOMINAL, GLUTEAL, HIP STRENGTHENING EXERCISES AND ROM EXERCISES IF TOLERATED AND DO NOT EXACERBATE HER PAIN LEVEL. [facility] PATIENT NAME: EMPERATRIZ GHOSH [address] [facility] [address] MEDICAL REC #: [id number] [place] [address] ADMIT DATE: SERVICE DATE: 12/18/21 Physical Therapy Progress Note ATTENDING PHY: Fatoumata Lyn DO EDUCATE PT ON PROPER POSTURES AND BODY MECHANICS FOR LOWER BACK FOR ADL TASKS TO REDUCE SYMPTOM EXACERBATION BY ANY (more content not included)... [facility] FLUOROSCOPY IN OR/PAIN MGTon 09-21-2021 FLUOROSCOPY IN OR/PAIN MGT FLUOROSCOPY IN OR/PAIN MGT Ordering Physician: Fatoumata Lyn DO FLUOROSCOPY Clinical Statement: Facet arthropathy Comparison: None FINDINGS: 4 spot fluoroscopic images were saved demonstrating needle placement at multiple levels of the lower right lumbar spine. A total of 30.8 seconds fluoroscopy time was utilized. Please see the ordering clinician's report for full details. IMPRESSION: Documentation of fluoroscopy. This report was electronically signed by Amna Bundy MD 09/21/2021 10:28 AM Reported By: AMNA BUNDY M.D. Signed By: AMNA BUNDY M.D. [facility] FLUOROSCOPY IN OR/PAIN MGTon 08-10-2021 FLUOROSCOPY IN OR/PAIN MGT FLUOROSCOPY IN OR/PAIN MGT Ordering Physician: Fatoumata Lyn DO 08/10/2021 7:43 AM LUMBAR SPINE FLUOROSCOPY Clinical Statement: Lumbar facet arthropathy FINDINGS: 38 seconds fluoroscopy time was utilized by Dr. Lyn. A C-arm image of the lumbar spine was obtained. IMPRESSION: 38 seconds fluoroscopy time utilized by Dr. Lyn. This report was electronically signed by Jori Stroud MD 08/14/2021 9:58 AM Reported By: JORI STROUD M.D. Signed By: JORI STROUD M.D. [facility] SURGon 05-08-2021 SURG -- ---- Patient: EMPERATRIZ GHOSH ---- SPECIMEN: [id number] Collection Date: 05/08/21 Received: 05/09/21 Status: FABRICE Thakkar Dr.: Izzy Leon MD Ph# Othr. Dr.: Luda Ann DO Material for Examination: A GASTRIC BIOPSY, R/O H.PYLORI B DISTAL ESOPHAGEAL, R/O BARRETTS C PROXIMAL ESOPHAGEAL, R/O EE D DUODENAL BIOPSY, R/O DUODENITIS E GASTRIC POLYP PRE-OP DIAGNOSIS: GERD W/O ESOPHAGITIS POST-OP DIAGNOSIS: SAME SURGICAL PROCEDURE: NONE GIVEN DIAGNOSIS A. Gastric biopsy: - Gastric mucosal segments; no definitive histopathologic abnormality. - No intestinal metaplasia, dysplasia or morphologic evidence of H. pylori-like microorganisms. B. Distal esophagus, biopsy: - Squamocolumnar and gastric-type mucosal segments; junctional chronic inflammation with reactive changes. - Morphologic findings suggestive of reflux. - No intestinal metaplasia or dysplasia identified. C. Proximal esophagus, biopsy: - Fragment of squamous mucosa; no definitive histopathologic abnormality. - No dysplasia identified. - Features of eosinophilic esophagitis NOT identified. D. Duodenum, biopsy: - Small bowel mucosal segment consistent with duodenum; no definitive histopathologic abnormality. - No evidence of malabsorption, a parasitic, dysplastic or malignant process. E. Gastric polyp: - Fundic gland polyp. - No dysplasia identified. GROSS DESCRIPTION A. The specimen is received in formalin and labeled with the patient's name, ID and designated gastric biopsy, are 3 workman friable portions of tissue ranging in size from less than 0.1 by less than 0.1 by less than 0.1 cm to 0.5 x 0.2 x 0.1 cm. The smaller fragments of tissue may not survive processing. Entirely submitted in cassette A1. ---- [facility] NAME: EMPERATRIZ GHOSH Pathology and Laboratory Medicine UNIT#: [id number] LOC: [facility] Contact Lens Cutter: Apple Elliott M.D. [id number]BED: [facility] : 48 AGE/SEX: 70/F ORD.DR. Leon,Izzy Ceron MD CONTINUED ON NEXT PAGE ---- Patient: EMPERATRIZ GHOSH Unit#: [id number] (continued) SPECIMEN: [id number] GROSS DESCRIPTION B. The specimen is received in formalin and labeled with the patient's name, ID and designated distal esophageal biopsy, are 3 workman portions of tissue, 0.2 x 0.1 x 0.1 cm to 0.4 x 0.1 x 0.1 cm. Entirely submitted in cassette B1. C. The specimen is received in formalin and labeled with the patient's name, ID and designated proximal esophagus biopsy, is a single workman-white portion of tissue, 0.6 x 0.1 x 0.1 cm. The tissue is friable. Entirely submitted in cassette C1. D. The specimen is received in formalin and labeled with the patient's name, ID and designated duodenal biopsy, is a single workman portion of tissue, 0.4 x 0.2 x 0.1 cm. Entirely submitted in cassette D1. E. The specimen is received in formalin and labeled with the patient's name, ID and designated gastric polyp, are 2 workman portion of tissue 0.2 x 0.1 x 0.1 cm and 0.4 x 0.2 x 0.1 cm. Entirely submitted in cassette E1. MICROSCOPIC DESCRIPTION [place] stained slides examined. COPIES TO: Luda Ann Sameh S MD Signed Verified/Reviewed by TIFFANIE BEARDEN D.O. 05/10/21 This dictation was created using voice recognition software. Phonetic and/or minor grammatical errors may exist. ---- [facility] NAME: EMPERATRIZ GHOSH Pathology and Laboratory Medicine UNIT#: [id number] LOC: [facility] Contact Lens Cutter: Apple Elliott M.D. [facility]#: [id number] ROOM/BED: [facility] : 48 AGE/SEX: 70/F ORD.Izzy Cash MD END OF REPORT Normal [facility] [place] FLUOROSCOPY IN OR/PAIN MGTon 03-22-2021 FLUOROSCOPY IN OR/PAIN MGT FLUOROSCOPY IN OR/PAIN MGT Ordering Physician: Fatoumata Lyn DO 03/22/2021 10:25 AM FLUOROSCOPY FOR NEEDLE GUIDANCE: Clinical Statement: Unspecified inflammatory spondylopathy lumbar region FINDINGS: 17.3 seconds of fluoroscopy time was utilized by Dr. Lyn. Two fluoroscopic spot images were acquired of the lumbar spine. Additional information can be found in Dr. Lyn' report. IMPRESSION: Fluoroscopy provided to Dr. Lyn. ---- Electronic Signature on File ---- Signed By: Donovan Díaz MD PhD [email or web address] Dictated: 03/22/2021 12:41 PM Signed: 03/22/2021 12:41 PM Reported By: DONOVAN DÍAZ M.D. Signed By: DONOVAN DÍAZ M.D. [facility] Vital Signs Date Time Vital Sign Value Performing Clinician [facility] 02-25-2025 14:46-0400 Body height 152.[address] Jose Juan Springer MD Work Phone: [facility] 02-25-2025 14:46-0400 Body mass index (BMI) [Ratio] 44.1 kg/m2 Dr. Jose Juan Springer MD Work Phone: [facility] 02-25-2025 14:46-0400 Body weight 102.[address] Jose Juan Springer MD Work Phone: [facility] 06-25-2024 08:28-0400 Body height 152.4 cm Mahamed Cardona MD Work Phone: [facility] 06-25-2024 08:28-0400 Body mass index (BMI) [Ratio] 43.36 kg/m2 Mahamed Cardona MD Work Phone: [facility] 06-25-2024 08:28-0400 Body weight 100.7 kg Mahamed Cardona MD Work Phone: [facility] 06-25-2024 08:28-0400 Diastolic blood pressure 80 mm[Hg] Mahamed Cardona MD Work Phone: [facility] 06-25-2024 08:28-0400 Heart rate 95 /min Mahamed Cardona MD Work Phone: [facility] 06-25-2024 08:28-0400 SaO2% (BldA) [Mass fraction] 91 % Mahamed Cardona MD Work Phone: [facility] 06-25-2024 08:28-0400 Systolic blood pressure 117 mm[Hg] Mahamed Cardona MD Work Phone: [facility] 12-18-2023 10:130400 Body temperature 97.2 [degF] Maynor Robles PA-C Work Phone: [facility] 12-18-2023 10:13-0400 Diastolic blood pressure 59 mm[Hg] Maynor Robles PA-C Work Phone: [facility] 12-18-2023 10:13-0400 Heart rate 104 /min Maynor Robles PA-C Work Phone: [facility] 12-18-2023 10:13-0400 Respiratory rate 18 /min Maynor Robles PA-C Work Phone: [facility] 12-18-2023 10:13-0400 SaO2% (BldA) [Mass fraction] 94 % Maynor Robles PA-C Work Phone: [facility] 12-18-2023 10:130400 Systolic blood pressure 92 mm[Hg] Maynor Robles PA-C Work Phone: [facility] 04-15-2023 15:20-0400 Body height 152.4 cm Fatoumata Lyn DO Work Phone: [facility] 04-15-2023 15:20-0400 Body weight 101.61 kg Fatoumata Lyn DO Work Phone: [facility] 04-15-2023 15:20-0400 Diastolic blood pressure 86 mm[Hg] Fatoumata Lyn DO Work Phone: [facility] 04-15-2023 15:20-0400 Heart rate 107 /min Fatoumata Lyn DO Work Phone: [facility] 04-15-2023 15:20-0400 Respiratory rate 19 /min Fatoumata Lyn DO Work Phone: [facility] 04-15-2023 15:20-0400 SaO2% (BldA) [Mass fraction] 99 % Fatoumata Lyn DO Work Phone: [facility] 04-15-2023 15:20-0400 Systolic blood pressure 140 mm[Hg] Fatoumata Lyn DO Work Phone: [facility] 01-07-2023 11:33-0400 Body height 155.4 cm Alexissyl Lyn DO Work Phone: [facility] 01-07-2023 11:33-0400 Body weight 105.23 kg Alexissyl Lyn DO Work Phone: [facility] 01-07-2023 11:33-0400 Diastolic blood pressure 85 mm[Hg] Fatoumata Lyn DO Work Phone: [facility] 01-07-2023 11:33-0400 Heart rate 98 /min Fatoumata Lyn DO Work Phone: [facility] 01-07-2023 11:33-0400 Respiratory rate 19 /min Fatoumata Lyn DO Work Phone: [facility] 01-07-2023 11:33-0400 SaO2% (BldA) [Mass fraction] 94 % Fatoumata Lyn DO Work Phone: [facility] 01-07-2023 11:33-0400 Systolic blood pressure 142 mm[Hg] Fatoumata Lyn DO Work Phone: [facility] 10-29-2022 10:47-0500 Body height 155.4 cm Alexissyl Lyn DO Work Phone: [facility] 10-29-2022 10:47-0500 Body weight 104.78 kg Fatoumata Lyn DO Work Phone: [facility] 10-29-2022 10:47-0500 Diastolic blood pressure 94 mm[Hg] Fatoumata Lyn DO Work Phone: [facility] 10-29-2022 10:47-0500 Heart rate 109 /min Fatoumata Lyn DO Work Phone: [facility] 10-29-2022 10:47-0500 Respiratory rate 19 /min Fatoumata Lyn DO Work Phone: [facility] 10-29-2022 10:47-0500 SaO2% (BldA) [Mass fraction] 95 % Fatoumata Lyn DO Work Phone: [facility] 10-29-2022 10:47-0500 Systolic blood pressure 154 mm[Hg] Fatoumata Lyn DO Work Phone: [facility] 10-02-2022 14:09-0500 Body height 155.4 cm Fatoumata Lyn DO Work Phone: [facility] 10-02-2022 14:09-0500 Body weight 105.69 kg Fatoumata Lyn DO Work Phone: [facility] 10-02-2022 14:09-0500 Diastolic blood pressure 62 mm[Hg] Fatoumata Lyn DO Work Phone: [facility] 10-02-2022 14:09-0500 Heart rate 112 /min Fatoumata Lyn DO Work Phone: [facility] 10-02-2022 14:09-0500 Respiratory rate 19 /min Fatoumata Lyn DO Work Phone: [facility] 10-02-2022 14:09-0500 SaO2% (BldA) [Mass fraction] 93 % Fatoumata Lyn DO Work Phone: [facility] 10-02-2022 14:09-0500 Systolic blood pressure 101 mm[Hg] Fatoumata Lyn DO Work Phone: [facility] 04-16-2022 09:55-0400 Body height 161.5 cm Fatoumata Lyn DO Work Phone: [facility] 04-16-2022 09:55-0400 Body weight 107.96 kg Fatoumata Lyn DO Work Phone: [facility] 04-16-2022 09:55-0400 Diastolic blood pressure 85 mm[Hg] Fatoumata Lyn DO Work Phone: [facility] 04-16-2022 09:55-0400 Heart rate 107 /min Fatoumata Lyn DO Work Phone: [facility] 04-16-2022 09:55-0400 Respiratory rate 19 /min Fatoumata Lyn DO Work Phone: [facility] 04-16-2022 09:55-0400 SaO2% (BldA) [Mass fraction] 98 % Fatoumata Lyn DO Work Phone: [facility] 04-16-2022 09:55-0400 Systolic blood pressure 130 mm[Hg] Fatoumata Lyn DO Work Phone: [facility] 02-15-2022 10:40-0400 Body height 161.5 cm Fatoumata Lyn DO Work Phone: [facility] 02-15-2022 10:40-0400 Body weight 107.96 kg Fatoumata Lyn DO Work Phone: [facility] 02-15-2022 10:40-0400 Diastolic blood pressure 92 mm[Hg] Fatoumata Lyn DO Work Phone: [facility] 02-15-2022 10:40-0400 Heart rate 111 /min Fatoumata Lyn DO Work Phone: [facility] 02-15-2022 10:40-0400 Respiratory rate 19 /min Fatoumata Lyn DO Work Phone: [facility] 02-15-2022 10:40-0400 SaO2% (BldA) [Mass fraction] 94 % Fatoumata Lyn DO Work Phone: [facility] 02-15-2022 10:40-0400 Systolic blood pressure 127 mm[Hg] Fatoumata Lyn DO Work Phone: [facility] Encounters Encounter Date Encounter Type Care Provider Facility Start: 03-30-2025 ambulatory Luda Ann Facility:[facility] Start: 02-25-2025 End: 02-25-[address] Rodriguez Coleman MD -[facility] Start: 02-25-2025 End: 02-25-2025 ambulatory Jose Juan Springer [facility] Start: 09-21-2024 End: 09-21-2024 ambulatory [facility] Facility:[id number] Start: 09-02-2024 End: 09-02-2024 Telephone encounter Mahamed Cardona MD Work Phone: [facility] Card[facility] Comment on above: Patient Update (Anyi ent notified of heart cath 09/18/2024 @ 8:00AM. Janet Wiley LPN/) Start: 09-01-2024 End: 09-01-2024 Unlisted evaluation and management service Mahamed Cardona MD Work Phone: [facility] Comment on above: Hypercholesterolemia (Primary Dx); Coronary artery disease involving [place] coronary artery of [place] heart without angina pectoris; Chest discomfort; Abnormal stress test Start: 08-31-2024 End: 08-31-2024 Telephone encounter Mahamed Cardona MD Work Phone: [facility] Cardiology Comment on above: Results (Has agreed to proceed with cath. Please place order in chart. Janet Wiley LPN/) Start: 08-20-2024 End: 08-20-2024 Telephone encounter Mahamed Cardona MD Work Phone: [facility] Cardiology Comment on above: Medication Problem ( Spoke with Emperatriz; she is going to give a thought to having a heart cath. I gave her the phone number here at my desk and she will call next week. Janet Wiley LPN/) Start: 08-20-2024 End: 08-20-2024 Patient encounter procedure Erika Maki RT(R) Nuclear Medicine Comment on above: Coronary artery calc ification seen on CT scan; Dyspnea, unspecified type Start: 08-20-2024 End: 08-20-2024 ambulatory Erika Maki RT(R) Nuclear Medicine Comment on above: Radiology [place] Start: 08-14-2024 End: 08-14-2024 Telephone encounter Mahamed Cardona MD Work Phone: [facility] Start: 06-25-2024 End: 06-25-2024 Office outpatient visit 40 minutes Mahamed Cardona MD Work Phone: [facility] Card[facility] Comment on above: Coronary artery calc ification seen on CT scan (Primary Dx); Dyspnea, unspecified type; Hypercholesterolemia; Primary hypertension; BMI 40.0-44.9, adult (HCC); Encounter for screening for cardiovascular disorders Start: 06-25-2024 End: 06-25-2024 ambulatory MAHAMED CARDONA Facility:[id number] Start: 06-23-2024 Patient encounter status Madi Cardona MD Work Phone: [facility] Start: 06-23-2024 Preoperative state Mahamed harkins MD Work Phone: [facility] Start: 06-18-2024 End: 06-18-[address] LUDA ANN DO Facility:A Start: 03-12-2024 Telephone encounter Mahamed Cardona MD Work Phone: [facility] Cardiology Comment on above: Appointment Start: 02-19-2024 Telephone encounter Jaci marshall APRN.ANESTHESIOLOGIST Work Phone: Pain [facility] [place] Comment on above: Net Mobile Developer - O ther Appointment Start: 02-13-2024 ambulatory KARY CHASE Facility:[id number] Start: 02-13-2024 End: 02-13-2024 Subsequent hospital visit by physician Xr [facility] Work Phone: RADIO [facility] Start: 02-03-2024 End: 02-03-2024 ambulatory EVERETT MCCULLOUGH MD Facility:A Start: 01-22-2024 Refill Maynor san PA-C Work Phone: Pain Management Comment on above: Refill Request Start: 12-31-2023 Telephone encounter Maynor Robles PA-C Work Phone: Pain Management Comment on above: pain pump referral Start: 12-23-2023 End: 12-23-2023 ambulatory Laura Shaffer PT, DPT Work Phone: [facility] [place] Comment on above: Decreased range of m otion of left knee (Primary Dx); Presence of left artificial knee joint; Weakness Start: 12-18-2023 End: 12-18-2023 ambulatory Dwain Kolb PTA [facility] [place] Comment on above: Decreased range of m otion of left knee (Primary Dx); Presence of left artificial knee joint; Weakness Start: 12-18-2023 End: 12-18-2023 Patient encounter procedure Maynor Robles PA-C Work Phone: Pain Management Comment on above: Lumbar postlaminecto my syndrome (Primary Dx); Lumbar spondylosis; Sacroiliitis (HCC); Lumbar radiculopathy; Radiculitis, thoracic; Myofascial pain syndrome; Carpal tunnel syndrome, bilateral; Implantable intrathecal infusion pump present Start: 12-18-2023 End: 12-18-2023 ambulatory MAYNOR ROBLES Facility:[id number] Start: 12-16-2023 Telephone encounter Maynor Robles PA-C Work Phone: Pain Management Comment on above: IT pump referral Start: 12-11-2023 End: 12-11-2023 ambulatory Dwain Erwin Ciccarone ELEVATING GRADER OPERATOR [facility] [place] Comment on above: Decreased range of m otion of left knee (Primary Dx); Presence of left artificial knee joint; Weakness Start: 12-09-2023 Telephone encounter Boubacar Andrews MD Work Phone: Pain Management Comment on above: Pain Pump Start: 12-09-2023 End: 12-09-2023 ambulatory Dwain M Ciccarone ELEVATING GRADER OPERATOR [facility] [place] Comment on above: Decreased range of m otion of left knee (Primary Dx); Presence of left artificial knee joint; Weakness Start: 12-04-2023 End: 12-04-2023 ambulatory Dwain M Ciccarone ELEVATING GRADER OPERATOR [facility] [place] Comment on above: Decreased range of m otion of left knee (Primary Dx); Presence of left artificial knee joint; Weakness Start: 12-02-2023 End: 12-02-2023 ambulatory Dwain M Ciccarone ELEVATING GRADER OPERATOR [facility] [place] Comment on above: Decreased range of m otion of left knee (Primary Dx); Presence of left artificial knee joint; Weakness Start: 11-27-2023 End: 11-27-2023 ambulatory Laura Shaffer PT, DPT Work Phone: [facility] [place] Comment on above: Decreased range of m otion of left knee (Primary Dx); Presence of left artificial knee joint; Weakness Start: 11-25-2023 End: 11-25-2023 Refill Boubacar Andrews MD Work Phone: Pain Management Comment on above: Refill Request Decreased range of m otion of left knee (Primary Dx); Presence of left artificial knee joint; Weakness Start: 11-21-2023 End: 11-21-2023 ambulatory MAYA GOEL [facility]:[id number] Start: 11-19-2023 End: 11-19-2023 Refill Maynor Robles PA-C Work Phone: Pain Management Comment on above: Refill Request Decreased range of m otion of left knee (Primary Dx); Presence of left artificial knee joint; Weakness Start: 11-15-2023 End: 11-15-2023 ambulatory Dwain Erwin [facility] [place] Comment on above: Decreased range of m otion of left knee (Primary Dx); Presence of left artificial knee joint; Weakness Start: 11-13-2023 End: 11-13-2023 ambulatory Laura Shaffer PT, DPT Work Phone: [facility] [place] Comment on above: Decreased range of m otion of left knee (Primary Dx); Presence of left artificial knee joint; Weakness Start: 11-11-2023 End: 11-11-2023 ambulatory Laura Shaffer PT, DPT Work Phone: [facility] [place] Comment on above: Decreased range of m otion of left knee (Primary Dx); Presence of left artificial knee joint; Weakness Start: 11-06-2023 End: 11-06-2023 ambulatory Laura Shaffer PT, DPT Work Phone: [facility] [place] Comment on above: Decreased range of m otion of left knee (Primary Dx); Presence of left artificial knee joint; Weakness Start: 11-04-2023 End: 11-04-2023 ambulatory Laura Shaffer PT, DPT Work Phone: [facility] [place] Comment on above: Decreased range of m otion of left knee (Primary Dx); Presence of left artificial knee joint; Weakness Start: 11-01-2023 End: 11-01-2023 ambulatory Dwain Kolb PTA [facility] [place] Comment on above: Decreased range of m otion of left knee (Primary Dx); Presence of left artificial knee joint; Weakness Start: 10-30-2023 End: 10-30-2023 ambulatory Laura Shaffer PT, DPT Work Phone: [facility] [place] Comment on above: Decreased range of m otion of left knee (Primary Dx); Presence of left artificial knee joint; Weakness Start: 10-28-2023 End: 10-28-2023 ambulatory Dwain Kolb PTA [facility] [place] Comment on above: Decreased range of m otion of left knee (Primary Dx); Presence of left artificial knee joint; Weakness Start: 10-25-2023 End: 10-25-2023 ambulatory Dwain Kolb PTA [facility] [place] Comment on above: Decreased range of m otion of left knee (Primary Dx); Presence of left artificial knee joint; Weakness Start: 10-23-2023 End: 10-23-2023 ambulatory Dwain Kolb PTA [facility] [place] Comment on above: Decreased range of m otion of left knee (Primary Dx); Presence of left artificial knee joint; Weakness Start: 10-18-2023 End: 10-18-2023 ambulatory Dwain Kolb PTA [facility] [place] Comment on above: Decreased range of m otion of left knee (Primary Dx); Presence of left artificial knee joint; Weakness Start: 10-17-2023 Telephone encounter Boubacar Andrews MD Work Phone: Pain Management Comment on above: Patient Update (S/p TKR) Start: 10-16-2023 End: 10-16-2023 ambulatory Laura Shaffer PT, DPT Work Phone: [facility] [place] Comment on above: Decreased range of m otion of left knee (Primary Dx); Presence of left artificial knee joint; Weakness Start: 10-14-2023 End: 10-14-2023 ambulatory Dwain Kolb PTA [facility] [place] Comment on above: Decreased range of m otion of left knee (Primary Dx); Presence of left artificial knee joint; Weakness Start: 10-11-2023 End: 10-11-2023 ambulatory Maya Goel PTA [facility] [place] Comment on above: Decreased range of m otion of left knee (Primary Dx); Presence of left artificial knee joint; Weakness Start: 10-09-2023 End: 10-09-2023 ambulatory Dwain Kolb PTA [facility] [place] Comment on above: Decreased range of m otion of left knee (Primary Dx); Presence of left artificial knee joint; Weakness Start: 10-07-2023 End: 10-07-2023 ambulatory Laura Shaffer PT, DPT Work Phone: [facility] [place] Comment on above: Decreased range of m otion of left knee (Primary Dx); Presence of left artificial knee joint; Weakness Start: 10-03-2023 End: 10-03-2023 ambulatory Maya Erwin Goel LINDA [facility] [place] Comment on above: Decreased range of m otion of left knee (Primary Dx); Weakness; Presence of left artificial knee joint Start: 10-02-2023 End: 10-02-2023 ambulatory Laura Shaffer PT, DPT Work Phone: [facility] [place] Comment on above: Decreased range of m otion of left knee (Primary Dx); Weakness; Presence of left artificial knee joint Start: 09-26-2023 Refill Maynor san PA-C Work Phone: Pain Management Comment on above: Refill Request Start: 09-11-2023 End: 09-11-[address] BLADIMIR HUSTON DO Facility:A Start: 09-11-2023 End: 09-11-[address] BLADIMIR HUSTON DO Facility:A Start: 07-25-2023 End: 07-25-2023 ambulatory EVERETT MCCULLOUGH MD Facility:A Start: 07-10-2023 End: [facility]10-[facility]23 [facility] FENCE GATE ASSEMBLERKatieANESTHESIOLOGIST Work Phone: Pain [facility] Comment on above: Lumbar postlaminecto my syndrome (Primary Dx); Acute arthropathy; DDD (degenerative disc disease), lumbar; Lumbar radiculopathy; Intervertebral disc disorder with radiculopathy of lumbar region; History of arthroplasty [Z98.890 (ICD-10-CM)]; Other chronic pain; Implantable intrathecal infusion pump present; Radiculitis, thoracic; Myalgia [M79.10 (ICD-10-CM)]; Radiculopathy, lumbar region [M54.16 (ICD-10-CM)] Future Appointment Start: 06-12-2023 Telephone encounter Fatoumata Lyn DO Work Phone: [facility] Comment on above: Case Needed Start: 06-05-2023 End: 06-05-2023 ambulatory EVERETT MCCULLOUGH MD Facility:A Start: 06-05-2023 End: 06-05-2023 Patient encounter procedure EVERETT MCCULLOUGH MD [facility] Start: 04-15-2023 End: 04-15-2023 Patient encounter procedure Fatoumata Lyn DO Work Phone: Pain Management Comment on above: Lumbar postlaminecto my syndrome (Primary Dx); Acute arthropathy; DDD (degenerative disc disease), lumbar; Lumbar radiculopathy; Intervertebral disc disorder with radiculopathy of lumbar region; Other chronic pain; Radiculitis, thoracic; Radiculopathy, lumbar region [M54.16 (ICD-10-CM)]; History of arthroplasty [Z98.890 (ICD-10-CM)]; Implantable intrathecal infusion pump present; Myalgia [M79.10 (ICD-10-CM)]; Myofascial pain syndrome Start: 03-27-2023 End: 03-27-[address] LUDA ANN DO Facility:A Start: 03-26-2023 Refill Fatoumata Boyd DO Work Phone: Pain Management Comment on above: Refill Request Start: 03-21-2023 Telephone encounter Jaci marshall FENCE GATE ASSEMBLER.ANESTHESIOLOGIST Work Phone: Pain Management Comment on above: Net Mobile Developer - O ther Start: 02-13-2023 End: 02-13-2023 [facility] Jaci Nixon FENCE GATE ASSEMBLER.ANESTHESIOLOGIST Work Phone: Pain [facility] Comment on above: Lumbar postlaminecto my syndrome (Primary Dx); Acute arthropathy; Lumbar radiculopathy; DDD (degenerative disc disease), lumbar; Intervertebral disc disorder with radiculopathy of lumbar region; Other chronic pain [G89.29 (ICD-10-CM)]; Radiculitis, thoracic; Radiculopathy, lumbar region [M54.16 (ICD-10-CM)]; History of arthroplasty [Z98.890 (ICD-10-CM)]; Implantable intrathecal infusion pump present; Myalgia [M79.10 (ICD-10-CM)] Start: 01-24-2023 Telephone encounter Fatoumata Lyn DO Work Phone: Pain Management Comment on above: Pt still having pain - wants change Start: 01-23-2023 Refill Fatoumata Boyd DO Work Phone: Pain Management Comment on above: Refill Request Start: 01-07-2023 End: 01-07-2023 Patient encounter procedure Fatoumata Lyn DO Work Phone: Pain Management Comment on above: Lumbar postlaminecto my syndrome (Primary Dx); Acute arthropathy; History of arthroplasty [Z98.890 (ICD-10-CM)]; Lumbar radiculopathy; DDD (degenerative disc disease), lumbar; Intervertebral disc disorder with radiculopathy of lumbar region; Myalgia [M79.10 (ICD-10-CM)]; Radiculitis, thoracic; Other chronic pain [G89.29 (ICD-10-CM)]; Radiculopathy, lumbar region [M54.16 (ICD-10-CM)]; Implantable intrathecal infusion pump present; High risk medication use; Chronic pain syndrome; Myofascial pain syndrome; Morbid obesity (HCC) Start: 12-03-2022 Telephone encounter Fatoumata Lyn DO Work Phone: Pain Management Comment on above: Orders Start: 11-20-2022 Refill Fatoumata Boyd DO Work Phone: Pain Management Comment on above: Refill Request Start: 10-30-2022 Refill Jaci Nixon ANESTHESIOLOGIST Work Phone: Pain [facility] Comment on above: Refill Request Start: 10-29-2022 End: 10-29-2022 Patient encounter procedure Fatoumata Lyn DO Work Phone: Pain Management Comment on above: Lumbar postlaminecto my syndrome (Primary Dx); Radiculopathy, lumbar region [M54.16 (ICD-10-CM)]; DDD (degenerative disc disease), lumbar [M51.36 (ICD-10-CM)]; Intervertebral disc disorder with radiculopathy of lumbar region [M51.16 (ICD-10-CM)]; Myalgia [M79.10 (ICD-10-CM)]; History of arthroplasty [Z98.890 (ICD-10-CM)]; Other chronic pain [G89.29 (ICD-10-CM)]; Implantable intrathecal infusion pump present; Radiculitis, thoracic; High risk medication use; Chronic pain syndrome Start: 10-19-2022 Telephone encounter Fatoumata Lyn DO Work Phone: Pain Management Comment on above: Patient Update Start: 10-16-2022 Patient encounter procedure [facility] Prov ider [facility] Department Start: 10-10-2022 Refill Fatoumata Boyd DO Work Phone: Pain Management Start: 10-02-2022 End: 10-02-2022 Patient encounter procedure Alexissyl Lyn DO Work Phone: Pain Management Comment on above: Lumbar postlaminecto my syndrome [M96.1 (ICD-10-CM)] (Primary Dx); Radiculopathy, lumbar region [M54.16 (ICD-10-CM)]; DDD (degenerative disc disease), lumbar [M51.36 (ICD-10-CM)]; Intervertebral disc disorder with radiculopathy of lumbar region [M51.16 (ICD-10-CM)]; Myalgia [M79.10 (ICD-10-CM)]; History of arthroplasty [Z98.890 (ICD-10-CM)]; Other chronic pain [G89.29 (ICD-10-CM)]; Implantable intrathecal infusion pump present Start: 10-02-2022 Medical examinations /reports status Fatoumata Lyn DO Work Phone: [facility] Start: 09-28-2022 Refill Fatoumata Boyd DO Work Phone: Pain Management Start: 09-26-2022 Telephone encounter Fatoumata Lyn DO Work Phone: Pain Management Comment on above: Appointment pacc hx call Start: 09-19-2022 End: 09-19-2022 [facility] Jaci Nixon FENCE GATE ASSEMBLER.ANESTHESIOLOGIST Work Phone: Pain [facility] Comment on above: Lumbar postlaminecto my syndrome (Primary Dx); Lumbar radiculopathy; DDD (degenerative disc disease), lumbar; Intervertebral disc disorder with radiculopathy of lumbar region; Myalgia; Acute arthropathy; Radiculitis, thoracic; Other chronic pain Start: 09-11-2022 Telephone encounter Fatoumata Lyn DO Work Phone: Pain Management Comment on above: Results; Patient Upd ate Start: 09-07-2022 Refill Fatoumata Boyd DO Work Phone: Pain Management Start: 09-03-2022 Orders Only Fatoumata Boyd DO Work Phone: Pain Management Start: 08-21-2022 Telephone encounter Jaci marshall FENCE GATE ASSEMBLER.ANESTHESIOLOGIST Work Phone: Pain [facility] [place] Comment on above: Orders Start: 08-06-2022 Refill Fatoumata Boyd DO Work Phone: Pain Management Comment on above: Refill Request Start: 07-11-2022 Transcribe Orders Luda davidson DO Work Phone: [facility] Comment on above: Obstructive sleep ap radha (Primary Dx) Start: 06-29-2022 End: 06-29-2022 Subsequent hospital visit by physician Prep Room 1 [facility] Comment on above: Other forms of dyspn ea [R06.09] Start: 06-27-2022 Telephone encounter Fatoumata Lyn DO Work Phone: Pain Management Comment on above: Schedule Pump trial Start: 06-20-2022 Chart abstracting Beth izquierdo ANALOG CIRCUIT DESIGNER [facility] Start: 06-15-2022 End: 06-15-2022 ambulatory Pulm Mob Work Phone: [facility] Comment on above: Spirometry Start: 06-15-2022 End: 06-15-2022 Patient encounter procedure Pulm Lab [facility] Mob Work Phone: [facility] Start: 06-13-2022 Refill Fatoumata Mena Dulce huston DO Work Phone: Pain Management Comment on above: Refill Request Start: 06-11-2022 Refill Fatoumata [place] Dulce huston DO Work Phone: Pain Management Comment on above: Refill Request Start: 05-02-2022 Refill Fatoumata [place] Dulce huston DO Work Phone: Pain Management Comment on above: Refill Request Start: 04-16-2022 End: 04-16-2022 Patient encounter procedure Fatoumata Lyn DO Work Phone: Pain Management Comment on above: Chronic pain syndrom e (Primary Dx); Lumbar radiculopathy; DDD (degenerative disc disease), lumbar Start: 04-11-2022 Chart abstracting Fatoumata Lyn DO Work Phone: Pain Management Start: 03-13-2022 End: 03-13-2022 ambulatory Jaci Nixon APRN.ANESTHESIOLOGIST Work Phone: Pain Management Comment on above: Chronic pain syndrom e (Primary Dx); Myalgia; Acute arthropathy; Radiculitis, thoracic Start: 03-13-2022 End: 03-13-2022 Telemedicine consultation with patient Jaci E Nixon FENCE GATE ASSEMBLER.ANESTHESIOLOGIST Work Phone: [facility] Start: 02-22-2022 Refill Jaci Nixon FENCE GATE ASSEMBLER.ANESTHESIOLOGIST Work Phone: Pain Management Comment on above: Refill Request Start: 02-15-2022 End: 02-15-2022 Patient encounter procedure Fatoumata Lyn DO Work Phone: Pain Management Comment on above: Intervertebral disc disorder with radiculopathy of lumbar region; DDD (degenerative disc disease), lumbar Start: 02-08-2022 End: 02-08-2022 Subsequent hospital visit by physician Fatoumata Lyn DO Work Phone: [facility] Comment on above: LUMBAR SPONDYLOSIS Start: 01-12-2022 End: 01-12-2022 Subsequent hospital visit by physician Luda Ann DO Work Phone: [facility] Comment on above: R06.02 Start: 12-25-2021 End: 12-25-2021 Subsequent hospital visit by physician Fatoumata Lyn Work Phone: [facility] Comment on above: LUMBAR DEGENERATIVE DISC DISEASE Start: 12-12-2021 End: 12-12-2021 Subsequent hospital visit by physician Fatoumata Lyn Work Phone: [facility] Comment on above: LUMBAR DEGENERATIVE DISC DISEASE Start: 11-14-2021 End: 11-14-2021 Subsequent hospital visit by physician Jaci Nixon MD Work Phone: [facility] Comment on above: VIRTUAL Start: 10-20-2021 End: 10-20-2021 Subsequent hospital visit by physician Jaci Nixon [facility] Comment on above: VIRTUAL Start: 09-21-2021 End: 09-21-2021 Subsequent hospital visit by physician Fatoumata Lyn Work Phone: [facility] Comment on above: M46.96 Start: 09-18-2021 End: 09-18-2021 Subsequent hospital visit by physician Jaci Nixon [facility] Comment on above: VIRTUAL Start: 09-14-2021 End: 09-14-[address] ZACHARY FORBES MD [facility] Start: 08-15-2021 End: 08-15-2021 Subsequent hospital visit by physician [facility] Provider [facility] Comment on above: VIRTUAL Start: 08-10-2021 End: 08-10-2021 Subsequent hospital visit by physician [facility] Provider [facility] Comment on above: LEFT LUMBAR RFA L4-S 1 Start: 07-18-2021 End: 07-18-2021 Subsequent hospital visit by physician Fatoumata Lyn Work Phone: [facility] Comment on above: FOLLOW UP Start: 10-27-2020 End: 10-27-2020 Patient encounter procedure [facility] Start: 09-29-2020 End: 09-29-2020 Patient encounter procedure [facility] Procedures Date Procedure Procedure Detail Performing Clinician Start: 08-20-2024 Myocardial spect multiple studies Mahamed Cardona MD Work Phone: Start: 02-13-2024 Radex spine lumbscrl compl w/bending views min 6 Ankita Judy FENCE GATE ASSEMBLER.DOPE WORKER Work Phone: Start: 10-29-2022 H/O: surgery History of art hroplasty [Z98.890 (ICD-10-CM)] Fatoumtaa Lyn DO Work Phone: Start: 06-29-2022 Myocardial spect multiple studies Luda Ann DO Work Phone: Start: 06-15-2022 Brncdilat rspse spmt ry pre&post-brncdilat admn Provider [facility] Start: 06-15-2022 MAXIMAL VOLUNTARY VENTILATION Provider [facility] Start: 02-08-2022 Fluoroscopy up to 1 hour physician/qhp time Fatoumata Lyn DO Work Phone: Start: 12-12-2021 Pt evaluation Start: 03-07-2021 Colonoscopy Fatoumata Lyn DO Work Phone: Start: History of lumbar fusion DR ZACHARY FORBES MD Comment on above: L1-27 Dec 2011 L3-28 November [address] JOYCELYN FORBES MD Comment on above: Right H/O: surgery History of arthr oplasty [Z98.890 (ICD-10-CM)] Fatoumata Lyn DO Work Phone: H/O: surgery History of arthr oplasty [Z98.890 (ICD-10-CM)] Fatoumata Lyn DO Work Phone: H/O: surgery History of arthr oplasty [Z98.890 (ICD-10-CM)] Jaci Nixon FENCE GATE ASSEMBLER.ANESTHESIOLOGIST Work Phone: H/O: surgery History of arthr oplasty [Z98.890 (ICD-10-CM)] Fatoumata Lyn DO Work Phone: H/O: surgery History of arthr oplasty [Z98.890 (ICD-10-CM)] Jaci Nixon FENCE GATE ASSEMBLER.ANESTHESIOLOGIST Work Phone: Hysterectomy DR ZACHARY Hawley Insertion of hip prosthesis DR ZACHARY FORBES MD Comment on above: Right Left Operation on bladder DR JOYCELYN FORBES MD Tonsillectomy DR ZACHARY FORBES MD Plan of Treatment Date Care Activity Detail Author Start: 01-22-2033 Urine microalbumin profile DTaP,Tdap,Td Vaccine (2 - Td or Tdap) [facility] Start: 09-07-2025 DIABETES SCREEN DIABETES SCREEN [facility] Start: 09-07-2025 Diabetes Screening Diabetes Screenin g [facility] Start: 02-25-2025 X-ray of lumbosacral spine L/S Spine Min 4 Views [facility] Start: 02-25-2025 XR Spine Lumbar and Sacrum GE 4 Views [facility] Start: 02-25-2025 XR Thoracic spine Views [facility] Start: 02-25-2025 Xray thoracic spine Thoracic Spine 2 Views [facility] Start: 09-18-2024 End: 09-18-2024 Admission to same day surgery center 09/18/2024 8:00 AM EST - 09/18/2024 9:00 AM EST Surgery MR CARDIAC WEIGHT LOSS SALES CONSULTANT [address] [place] [address] Maynor Fernandez MD [address] [facility] [address] [place] [address]ON[address] W C[address] W IMAGE INJECT & INTERP W LT HEART CATH W INJECT LT VENTRGRAPHY MR [employer] WEIGHT LOSS SALES CONSULTANT Comment on above: CORONARY ANGIO W CAT H PLACE W IMAGE INJECT & INTERP W LT HEART CATH W INJECT LT VENTRGRAPHY Start: 09-18-2024 End: 09-18-2024 Cath plmt l hrt & arts w/njx & angio img s&i CORONARY ANGIO W CATH PLACE W IMAGE INJECT & INTERP W LT HEART CATH W INJECT LT VENTRGRAPHY Chest discomfort Abnormal stress test 09/18/2024 8:00 AM EST 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 Start: 09-18-2024 Subsequent hospital visit by physician 09/18/2024 8:00 AM EST Hospital Encounter MR [employer] WE[employer] LOSS SALES CONSULTANT [address] [place] [address] Maynor Fernandez MD [address] [place] [address] Chest discomfort [R07.89], Abnormal stress test [R94.39] MR [employer]IAC WEIGHT LOSS SALES CONSULTANT Comment on above: Chest discomfort [R0 7.89], Abnormal stress test [R94.39] Start: 09-08-2024 End: 12-08-2024 Basic metabolic 2000 panel - Serum or Plasma BASIC METABOLIC PANEL Lab Routine Coronary artery disease involving [place] coronary artery of [place] heart without angina pectoris Chest discomfort Abnormal stress test Expected: 09/08/2024 (Approximate), Expires: 12/08/2024 [facility] Work Phone: Comment on above: Expected: 09/08/2024 (Approximate), Expires: 12/08/2024 Start: 09-08-2024 End: 12-08-2024 PT panel - Platelet poor plasma by Coagulation assay PROTHROMBIN TIME Lab Routine Coronary artery disease involving [place] coronary artery of [place] heart without angina pectoris Chest discomfort Abnormal stress test Expected: 09/08/2024 (Approximate), Expires: 12/08/2024 [facility] Comment on above: Expected: 09/08/2024 (Approximate), Expires: 12/08/2024 Start: 09-01-2024 End: 12-01-2024 CBC W Auto Differential panel - Blood COMPLETE BLOOD COUNT AND DIFFERENTIAL Lab Routine Coronary artery disease involving [place] coronary artery of [place] heart without angina pectoris Chest discomfort Abnormal stress test Expected: 09/01/2024, Expires: 12/01/2024 [facility] Comment on above: Expected: 09/01/2024 , Expires: 12/01/2024 Start: 08-26-2024 Advance Directive Discussion Advance Directive Discussion [facility] Start: 08-20-2024 End: 08-20-2024 Patient encounter procedure Nuclear Medicine Comment on above: NM CARDIAC PERF STRE SS/PHARM Start: 07-25-2024 End: 07-25-2025 NM Heart Perfusion W stress and W radionuclide IV NM CARDIAC PERF STRESS/PHARM Radiology Routine Coronary artery calcification seen on CT scan Dyspnea, unspecified type Encounter for screening for cardiovascular disorders Expected: 07/25/2024, Expires: 07/25/2025 [facility] Comment on above: Expected: 07/25/2024 , Expires: 07/25/2025 Start: 06-25-2024 End: 06-25-2024 Patient encounter procedure 06/25/2024 8:30 AM EDT Office Visit [facility] Cardiology [address] [address] [address] Mahamed Cardona MD [address] [place] [address] New patient referral [facility] Cardiology Comment on above: New patient referral Start: 2024 RSV Vaccine (1 - 1-d ose 75+ series) RSV Vaccine (1 - 1-dose 75+ series) [facility] Start: 04-26-2024 Covid-19 Vaccine ( season) Covid-19 Vaccine () [facility] Start: 04-26-2024 Influenza vaccination Influenza Vacc ine (#1) [facility] Start: 03-18-2024 End: 03-18-2024 Patient encounter procedure 03/18/2024 10:00 AM EDT Office Visit Pain Management [address] [place] [address] Maynor Robles, PA-C [address] [place] [address] FOLLOW UP 3 [facility] Comment on above: FOLLOW UP 3 [facility] Start: 12-23-2023 End: 12-23-2023 ambulatory [facility] Comment on above: left knee left knee re- víctor l Start: 12-18-2023 End: 12-18-2023 ambulatory 12/18/2023 1:30 PM EDT OT/PT/Speech Visit [facility] [address] [place] [address] Ciccarone, Dwain M, ELEVATING GRADER OPERATOR left knee [facility] Comment on above: left knee Start: 12-18-2023 End: 12-18-2023 Patient encounter procedure 12/18/2023 10:00 AM EDT Office Visit Pain Management [address] [place] [address] Maynor Robles, PA-C [address] [place] [address] FOLLOW UP 3 [facility] Comment on above: FOLLOW UP 3 [facility] Start: 08-26-2023 Advance Directive Discussion Advance Directive Discussion [facility] Start: 08-26-2023 Behavioral Health Screening Behavioral Health Screening [facility] Start: 08-26-2023 Depression Assessment Depression Ass essment [facility] Start: 04-26-2023 Covid-19 Vaccine ( season) Covid-19 Vaccine () [facility] Start: 04-26-2023 Influenza vaccination INFLUENZA (#1) [facility] Start: 01-07-2023 End: 03-09-2023 TOXASSURE FLEX 23, URINE TOXASSURE FLEX 23, URINE Lab Routine Lumbar postlaminectomy syndrome Acute arthropathy History of arthroplasty [Z98.890 (ICD-10-CM)] Lumbar radiculopathy DDD (degenerative disc disease), lumbar Intervertebral disc disorder with radiculopathy of lumbar region Myalgia [M79.10 (ICD-10-CM)] Expected: 01/07/2023, Expires: 03/09/2023 [facility] Work Phone: Comment on above: Expected: 01/07/2023 , Expires: 03/09/2023 Start: 12-05-2022 COVID-19 VACCINE (5 - Pfizer series) COVID-19 VACCINE (5 - Pfizer series) [facility] Start: 08-26-2022 ADVANCE DIRECTIVE DISCUSSION ADVANCE DIRECTIVE DISCUSSION [facility] Start: 08-26-2022 DEPRESSION ASSESSMENT DEPRESSION ASS ESSMENT [facility] Start: 08-21-2022 End: 10-21-2022 TOXASSURE FLEX 23, URINE TOXASSURE FLEX 23, URINE Lab Routine High risk medication use Expected: 08/21/2022, Expires: 10/21/2022 [facility] Work Phone: Comment on above: Expected: 08/21/2022 , Expires: 10/21/2022 Start: 04-26-2022 Influenza vaccination [facility] Start: 03-07-2022 Colonoscopy COLONOSCOPY [facility] Start: 03-07-2022 COLORECTAL CANCER SCREENING COLORECTAL CANCER SCREENING [facility] Start: 09-26-2021 COVID-19 VACCINE (4 - Booster for Pfizer series) COVID-19 VACCINE (4 - Booster for Pfizer series) [facility] Start: 08-26-2021 ADVANCE DIRECTIVE DISCUSSION ADVANCE DIRECTIVE DISCUSSION [facility] Start: 08-26-2021 DEPRESSION ASSESSMENT DEPRESSION ASS ESSMENT [facility] Start: 07-21-2021 COVID-19 VACCINE (4 - Booster for Pfizer series) COVID-19 VACCINE (4 - Booster for Pfizer series) [facility] Start: 05-18-2017 Pneumococcal Vaccine : 50+ (2 of 2 - PPSV23) Pneumococcal Vaccine: 50+ (2 of 2 - PPSV23) [facility] Start: 05-18-2017 Pneumococcal Vaccine : 65+ (2 - PPSV23 or PCV20) Pneumococcal Vaccine: 65+ (2 - PPSV23 or PCV20) [facility] Start: 05-18-2017 Pneumococcal Vaccine : 65+ (2 of 2 - PPSV23 or PCV20) Pneumococcal Vaccine: 65+ (2 of 2 - PPSV23 or PCV20) [facility] Start: 05-18-2017 PNEUMOCOCCAL: 65+ (2 - PPSV23 if available, else PCV20) PNEUMOCOCCAL: 65+ (2 - PPSV23 if available, else PCV20) [facility] Start: 05-18-2017 PNEUMOCOCCAL: 65+ (2 - PPSV23 or PCV20) PNEUMOCOCCAL: 65+ (2 - PPSV23 or PCV20) [facility] Start: 2014 BONE DENSITY BONE DENSITY [facility] Start: 2014 Bone Density Screening Bone Density Screening [facility] Start: 2014 PNEUMOCOCCAL: 65+ (1 - PCV) PNEUMOCOCCAL: 65+ (1 - PCV) [facility] Start: 2014 Screening for osteoporosis Bone Density Screening [facility] Start: 2009 RSV Vaccine (1 - 1-d ose 60+ series) RSV Vaccine (1 - 1-dose 60+ series) [facility] Start: 2009 RSV Vaccine (1 - Ris k 60-74 years 1-dose series) RSV Vaccine (1 - Risk 60-74 years 1-dose series) [facility] Start: 1999 SHINGRIX VACCINE (1 of 2) SHINGRIX VACCINE (1 of 2) [facility] Start: 1994 COLOGUARD (FIT-DNA) COLOGUARD (FIT-D NA) [facility] Start: 1994 Colonoscopy COLONOSCOPY [facility] Start: 1994 COLORECTAL CANCER SCREENING COLORECTAL CANCER SCREENING [facility] Start: [address] COLONOGRAPHY [facility] Start: 1994 DIABETES SCREEN DIABETES SCREEN [facility] Start: 1994 FECAL OCCULT BLOOD FECAL OCCULT BLOO D [facility] Start: 1994 Lipid 1996 panel - Serum or Plasma Lipid Screening [facility] Start: 1994 Lipid panel Lipid Screening [facility] Start: 1994 LIPID SCREEN LIPID SCREEN [facility] Start: 1994 Screening for malign ant neoplasm of colon [facility] Start: 1994 SIGMOIDOSCOPY SIGMOIDOSCOPY [facility] Start: 1989 Mammography [facility] Start: 1989 Screening for malign ant neoplasm of breast Mammogram Screening [facility] Start: 1968 Urine microalbumin profile DTAP,TDAP,TD (1 - Tdap) [facility] Start: 1967 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 Visit Annual PCP Team Chronic Disease Visit [facility] Start: 1967 Anxiety Screening Anxiety Screening [facility] Start: 1967 BP Controlled (<130/80) BP Controlle d (<130/80) [facility] Start: 1967 Depression Screening Depression Scre ening [facility] Start: 1967 Hepatitis B surface antibody level LDL Cholesterol [facility] Start: 1967 HEPATITIS C SCREENING HEPATITIS C [facility] Start: 1967 Hepatitis C screening Hepatitis C [facility] Start: 1961 Adult depression screening assessment DEPRESSION SCREENING [facility] Start: 1954 COVID-19 VACCINE (#1) COVID-19 VACCI NE (#1) [facility] Cath plmt l hrt & ar ts w/njx & angio img s&i CORONARY ANGIO W CATH PLACE W IMAGE INJECT & INTERP W LT HEART CATH W INJECT LT VENTRGRAPHY Chest discomfort Abnormal stress test 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 ECG B/O W INTERP (ME D OFFICE) ECG B/O W INTERP (MED OFFICE) ECG Routine Coronary artery calcification seen on CT scan Dyspnea, unspecified type Primary hypertension Ordered: 06/25/2024 [facility] Work Phone: Comment on above: Ordered: 06/25/2024 MR Lumbar spine [facility] End: 08-10-2023 PAP TITRATION PSG (CPAP, BIPAP, ASV) PAP TITRATION PSG (CPAP, BIPAP, ASV) Procedures Routine Obstructive sleep apnea 1 Occurrences starting 07/11/2022 until 08/10/2023 [facility] Work Phone: Comment on above: 1 Occurrences starti ng 07/11/2022 until 08/10/2023 [facility] MR HSIEH [facility] Immunizations Immunization Date Immunization Notes Care Provider Susanne boyce 05-27-2023 influenza virus vacc ine, unspecified formulation Mahamed Cardona MD Work Phone: [facility] 05-30-2021 influenza (aIIV4) vaccine, age 65+ yr, quadrivalent, PF (FLUAD QUADRIVALENT) Fatoumata Lyn DO Work Phone: [facility] 07-12-2020 zoster vaccine recombinant Fatoumata Lyn DO Work Phone: [facility] 05-09-2020 zoster vaccine recombinant Fatoumata Lyn DO Work Phone: [facility] 2019 influenza, high dose seasonal, preservative-free Fatoumata Lyn DO Work Phone: [facility] 06-17-2018 influenza, injectabl e, quadrivalent, contains preservative Fatoumata Lyn DO Work Phone: [facility] 06-25-2017 influenza, high dose seasonal, preservative-free Fatoumata Lyn DO Work Phone: [facility] 05-18-2016 influenza, high dose seasonal, preservative-free Fatoumata Lyn DO Work Phone: [facility] 05-18-2016 pneumococcal conjuga te vaccine, 13 valent Fatoumata Lyn DO Work Phone: [facility] 07-26-2015 influenza, high dose seasonal, preservative-free Fatoumata Lyn DO Work Phone: [facility] 08-08-2009 novel influenza-H1N1 -09, preservative-free, injectable Fatoumata Lyn DO Work Phone: [facility] Payers Date Payer Category Payer Self-pay 2015 Private Health Insurance HU[employer]NA HUMANA MEDICARE SUPPLEMENT [id number] 2015-Present [phone] [address] [address] [place] [address] Indemnity [id number] 2015 Private Health Insurance HUMANA HUMANA MEDICARE SUPPLEMENT [id number] 2015-Present [phone] [address] [address] [place] [address] Indemnity [id number] 2015 Private Health Insurance [id number] 2014 Medicare MEDICARE MEDICAR E A AND B [id number] 2014-Present [phone] [place] [address] Medicare [id number] 2014 Medicare MEDICARE MEDICAR E A AND B [id number] 2014-Present [phone] [place] [address] Medicare [id number] 2014 Medicare [id number] 1950 Unknown [id number] 1949 Unknown [id number] .[id number] 1949 Unknown [id number] .[id number] 1949 Unknown [id number] .[id number] 1949 Unknown [id number] .[id number] 1949 Unknown [id number] .[id number] 1949 Unknown [id number] .[id number] 1949 Unknown [id number] .[id number] 1949 Unknown [id number] .[id number] 1949 Unknown [id number] .2.627 Medicare [id number] Unknown [id number] .[id number] Unknown [id number] .[id number] Unknown [id number] .[id number] Social History Date Type Detail Facility Tobacco smoking stat [facility] Tobacco smoking consumption unknown [facility] Start: 1950 Sex Assigned At Not on file [facility] Start: 09-12-2021 End: 02-25-2025 Never smoked tobacco (finding) [facility] Sex Assigned At [facility] Start: 02-15-2022 End: 09-20-2022 Tobacco use and exposure Smokeless tobacco non-user [facility] Start: 02-15-2022 End: 06-25-2024 Alcohol intake Ex-drinker (finding) [facility] Start: 02-05-2022 End: 06-29-2022 Exposure to SARS-CoV-2 (event) Not sure [facility] Start: 1950 Sex Assigned At Female [facility] Start: 01-07-2023 End: 02-13-2023 History of Social function [facility] Start: 01-07-2023 End: 02-13-2023 Tobacco use panel [facility] National Score (1-100), lower number is lower risk 86 [facility] Start: 03-09-2022 Gender identity Identifies as female gender (finding) [facility] Start: 03-09-2022 Sexual orientation Heterosexual (adilson ramírez) [facility] NEGATED: Highlighted rowStart: NINF History of tobacco use Passive smoker [facility] Medical Equipment Procedure Code Equipment Code Equipment Origin al Text Equipment Identifier Dates Catheter Ascenda 4fr .5mm Silicone 114cm 86cm Intrathecal 2 Piece Connector - [id number] Start: 09-28-2022 Pump Synchromed Ii Thk.78in C20ml Titanium .78in Intrathecal [place] - [id number] Start: 09-28-2022 Ptm [id number] Start: 09-28-2022 Goals Date Patient Goal Desired Activity /State Personal health goal Clinical Notes 12-12-2021 to 09-01-2024 Mahamed Cardona MD - 09/01/2024 3:03 PM ESTTelephone Encounter - Janet Wiley LPN - 08/31/2024 1:24 PM ESTTelephone Encounter - Janet Wiley LPN - 08/31/2024 1:24 PM EST Note Date & Type Note Facility 09-01-2024 Note HNO ID: [id number] Author: MAHAMED CARDONA MD Service: ? Author Type: Physician Type: Progress Notes Filed: 09/01/2024 15:11 Note Text: Summary: Abnormal stress Cardiolite with LAD ischemia, pt has atypical CP. For cath [facility] 09-01-2024 History of Presen t illness Narrative Summary: Abnormal stress Cardiolite with LAD ischemia, pt has atypical CP. For cath documented in this encounter [facility] 08-31-2024 Telephone encounter Note ----- Message from Mahamed Cardona MD sent at 08/20/2024 1:34 PM EST ----- Cardiolite mildly abnormal in Anterior distribution - ischemic. Sxs do not sound GI, but lots of risk factors. I suggest a cath, and will order if she agrees. [facility] 08-31-2024 Miscellaneous Notes ----- Message from Mahamed Cardona MD sent at 08/20/2024 1:34 PM EST ----- Cardiolite mildly abnormal in Anterior distribution - ischemic. Sxs do not sound GI, but lots of risk factors. I suggest a cath, and will order if she agrees. documented in this encounter [facility] 08-20-2024 Note HNO ID: [id number] Author: ERIKA MAKI RT(R) Service: ? Author Type: Technologist Type: Progress Notes Filed: 08/20/2024 10:57 Note Text: RADIOLOGY SERVICE PROGRESS NOTE SERVICE DATE: 08/20/2024 SERVICE TIME: 10:56 AM PATIENT IDENTITY VERIFICATION COMPLETED USING TWO (2) STANDARD IDENTIFIERS: Name and Date of confirmed by patient verbally FALL SCREENING: Has the patient had 2 falls in the last year or 1 fall with injury or currently using an Ambulatory Assistive Device (Walker, Cane, Wheelchair, Crutches, etc.)? No PATIENT GENDER DATA: .female : No status: No ALLERGIES: Reviewed and unchanged MEDICATIONS REVIEWED: No PATIENT RELEVANT IMPLANT DATA REVIEWED: Not Applicable PATIENT PRESENTS WITH AN IMPLANTABLE OR ATTACHED RAP ARTIST: No CREATININE: Creatinine Date Value Ref Range Status 09/07/2022 0.91 0.51 - 0.95 mg/dL Final Comment: Patients receiving either N-Acetylcysteine (NAC) or Metamizole prior to venipuncture, may have falsely depressed results. 05/19/2020 0.81 0.510 - 0.950 MG/DL Final Comment: Patients receiving either N-Acetylcysteine (NAC) or Metamizole prior to venipuncture, may have falsely depressed results. Estimated Glomerular Filtration Rate Date Value Ref Range Status 09/07/2022 67 >=60 mL/min/1.73m? Final Comment: Estimated Glomerular Filtration Rate (eGFR) is calculated using the 2020 CKD-EPI creatinine equation. This equation utilizes serum creatinine, sex, and age as parameters. The creatinine assay has traceable calibration to isotope dilution-mass spectrometry. Refer to KDIGO guidelines for clinical interpretation. In patients with unstable renal function, e.g. those with acute kidney injury, the eGFR may not accurately reflect actual GFR. eGFR- Date Value Ref Range Status 05/19/2020 Greater than 60 Final P.O.C.T. RESULTS: N/A August 20, [address] PERFORMED: No IV SITE: Ambulatory: A peripheral IV was started in the Right hand with a Angio cath/Butterfly: 22 gauge. POST EXAM PIV STATUS: Discontinued PROCEDURE TYPE: [place] Stress: 16.1 mCi [id number] was administered IV for Rest Imaging at 0920 by [facility] [place]. 48.2 mCi Vl37g-Ruotrwp was administered IV for Stress Imaging at 1020 by [facility] [place]. ADMINISTRATION TIME: 1020 PATIENT DISCHARGED TO: Ambulatory patient, left [place] department area. Is this a therapy: No A Diagnostic radioactive procedure has taken place, with no further precautions necessary other than routine body substance precautions. More information regarding radiation safety can be found using this link: [email or web address] [email or web address] 20Diagnostic%20Nuclear%20Medicine%2 0Procedures.pdf SIGNATURE: RT Harlan(R) PATIENT NAME: Emperatriz Ghosh DATE: August 20, 2024 TIME: 10:56 AM PAGER/CONTACT #: [facility] 08-20-2024 History of Presen t illness Narrative RADIOLOGY SERVICE PROGRESS NOTE SERVICE DATE: 08/20/2024 SERVICE TIME: 10:56 AM PATIENT IDENTITY VERIFICATION COMPLETED USING TWO (2) STANDARD IDENTIFIERS: Name and Date of confirmed by patient verbally FALL SCREENING: Has the patient had 2 falls in the last year or 1 fall with injury or currently using an Ambulatory Assistive Device (Walker, Cane, Wheelchair, Crutches, etc.)? No PATIENT GENDER DATA: .female : No status: No ALLERGIES: Reviewed and unchanged MEDICATIONS REVIEWED: No PATIENT RELEVANT IMPLANT DATA REVIEWED: Not Applicable PATIENT PRESENTS WITH AN IMPLANTABLE OR ATTACHED RAP ARTIST: No CREATININE: Creatinine Date Value Ref Range Status 09/07/2022 0.91 0.51 - 0.95 mg/dL Final Comment: Patients receiving either N-Acetylcysteine (NAC) or Metamizole prior to venipuncture, may have falsely depressed results. 05/19/2020 0.81 0.510 - 0.950 MG/DL Final Comment: Patients receiving either N-Acetylcysteine (NAC) or Metamizole prior to venipuncture, may have falsely depressed results. Estimated Glomerular Filtration Rate Date Value Ref Range Status 09/07/2022 67 >=60 mL/min/1.73m Final Comment: Estimated Glomerular Filtration Rate (eGFR) is calculated using the 2020 CKD-EPI creatinine equation. This equation utilizes serum creatinine, sex, and age as parameters. The creatinine assay has traceable calibration to isotope dilution-mass spectrometry. Refer to KDIGO guidelines for clinical interpretation. In patients with unstable renal function, e.g. those with acute kidney injury, the eGFR may not accurately reflect actual GFR. eGFR- Date Value Ref Range Status 05/19/2020 Greater than 60 Final P.O.C.T. RESULTS: N/A August 20, [address] PERFORMED: No IV SITE: Ambulatory: A peripheral IV was started in the Right hand with a Angio cath/Butterfly: 22 gauge. POST EXAM PIV STATUS: Discontinued PROCEDURE TYPE: [place] Stress: 16.1 mCi Aj34m-Gsujewj was administered IV for Rest Imaging at 0920 by s. 48.2 mCi [id number] was administered IV for Stress Imaging at 1020 by s. ADMINISTRATION TIME: 1020 PATIENT DISCHARGED TO: Ambulatory patient, left [place] department area. Is this a therapy: No A Diagnostic radioactive procedure has taken place, with no further precautions necessary other than routine body substance precautions. More information regarding radiation safety can be found using this link: [email or web address] [email or web address]%20Nuclear%20 [email or web address] SIGNATURE: ANGELO Claros) PATIENT NAME: Emperatriz Ghosh DATE: August 20, 2024 TIME: 10:56 AM PAGER/CONTACT #: documented in this encounter [facility] 08-14-2024 Telephone encounter Note Spoke with patient on phone and gave stress test instructions including holding all products with caffeine/decaff 6pm night before with date time and location. Radha Mendoza [facility] 08-14-2024 Miscellaneous Notes Spoke with patient on phone and gave stress test instructions including holding all products with caffeine/decaff 6pm night before with date time and location. Radha Mendoza documented in this encounter [facility] 06-25-2024 Instructions Mahamed Cardona MD - 06/25/2024 8:51 AM EDT Same meds Discuss risk factor modification with Dr. Ann - weight management, exercise, BP, possible further pulmonary evaluation (Low O2 levels). May also need GI Dr. Nallely alvarado for GERD, possible esophageal stricture/spasm. Lexiscan Cardiolite documented in this encounter [facility] 06-25-2024 Note HNO ID: [id number] Author: MAHAMED CARDONA MD Service: ? Author Type: Physician Type: Progress Notes Filed: 06/25/2024 09:18 Note Text: [facility] [place] OUTPATIENT VISIT DATE June 25, 2024 OUTPATIENT VISIT TYPE New Cardiology Consult PRIMARY CARE PHYSICIAN: Luda Ann [address] [place] [address] HISTORY OF PRESENT ILLNESS: Emperatriz Ghosh is a 74 year old female here for New Patient. CARDIAC HISTORY: 74 F, Rina, referred by Korin Ann DO for coronary calcification on CT (, 02/16). Has LEA, Normal Echo without HOCM (2022), normal Cardiolite (07/17), chol, HBP, BMI 42+, Interstitial lung disease (sees pulmonary), GERD, ?elevated LFT's (no labs - per Dr. Ann). Family Hx HCM, but she is neg. 06/25/24 - [place]. Mid-chest pain with food getting stuck in esophagus, with indigestion. Has LEA, and a family Hx of HCM. ECHO was normal. CT chest in and showed severe coronary Ca++, but Cardiolite 07/17 was normal. EKG (today) - NSR, QTC 480 msec. RAO2 91%. Social History Tobacco Use Smoking status: Never Passive exposure: Never Smokeless tobacco: Never Substance Use Topics Alcohol use: Not Currently Drug use: Not Currently ALLERGIES No Known Allergies MEDICATIONS: NYSTOP powder APPLY TOPICALLY TO THE AFFECTED AREA DIRECTED nystatin-triamcinolone (MYCOLOG II) cream APPLY TOPICALLY TO THE AFFECTED AREA 2 TO 3 TIMES DAILY NEEDED morphine (PF) 5 mg/mL in NaCl 0.9% 20 mL PF MORPHINE 5 MG/ML SIMPLE CONTINUOUS RATE 0.8636 mg/ day PTM 0.0799 mg every 4 hours (max 6 doses per day) Total daily dose 1.3397mg Acetaminophen 500 mg cap Take 1,000 mg by mouth two times a day as needed. ascorbic acid, vitamin C, (VITAMIN C) 500 mg tablet Take 500 mg by mouth once daily. famotidine (PEPCID) 20 mg tablet Take 20 mg by mouth daily at bedtime. calcium carbonate (CALTRATE) 600 mg calcium (1,500 mg) tab Take by mouth every 24 hours. omeprazole (PRILOSEC) 40 mg capsule take 1 capsule by mouth every day before a meal ferrous sulfate (IRON) 325 mg (65 mg iron) tablet Take 325 mg by mouth. dorzolamide-timolol (COSOPT) 22.3-6.8 mg/mL ophthalmic solution INSTILL 1 DROP IN LEFT EYE TWICE DAILY cholecalciferol (VITAMIN D3) 5,000 unit tab Take 2,000 Units by mouth once daily. Last dose 09/26/22 Lactobac no.41/Bifidobact no.7 (PROBIOTIC-10 ORAL) Take 1 tablet by mouth every morning. tolterodine ER (DETROL LA) 4 mg 24 hr capsule Take 4 mg by mouth every morning. Zinc 50 mg tab as needed. latanoprost (XALATAN) 0.005 % ophthalmic solution Use 1 Drop in both eyes daily at bedtime. lisinopril-hydroCHLOROthiazide (PRINZIDE, ZESTORETIC) 20-25 mg per tablet Take 1 tablet by mouth every morning. simvastatin (ZOCOR) 20 mg tablet Take 20 mg by mouth daily at bedtime. brimonidine (ALPHAGAN) 0.2 % ophthalmic solution Use 1 Drop in the left eye twice daily. GLAUCOMA cyclobenzaprine (FLEXERIL) 10 mg tablet Take 10 mg by mouth three times daily as needed for muscle spasm. aspirin, enteric coated (ASPIRIN, ENTERIC COATED) 81 mg EC tablet Take 81 mg by mouth every morning. IS GOING TO CHECK WITH SURGEON AND PCP ABOUT WHEN NEEDS TO STOP ASA multivit with minerals/lutein (MULTIVITAMIN 50 PLUS ORAL) Last dose 09/26/22 folic acid 800 mcg tablet Take 800 mcg by mouth every morning. FROM PCP BLOOD NOT CLOT NORMAL PERSON gabapentin (NEURONTIN) 800 mg tablet Take 1 tablet by mouth three times a day for 120 days. lidocaine-prilocaine (EMLA) 2.5-2.5 % cream Apply to affected area as needed. 1-2 grams to affected area TID PRN REVIEW OF SYSTEMS: Review of Systems Constitutional: Negative for chills, diaphoresis, fatigue and fever. Eyes: Negative for visual disturbance. Respiratory: Positive for shortness of breath. Negative for cough, chest tightness and wheezing. Cardiovascular: Positive for chest pain. Negative for palpitations and leg swelling. Gastrointestinal: Negative for abdominal pain, constipation and vomiting. Endocrine: Negative for cold intolerance and heat intolerance. Musculoskeletal: Negative for back pain, joint swelling, myalgias and neck pain. Neurological: Negative for dizziness, seizures, syncope, speech difficulty, weakness, light-headedness, numbness and headaches. Psychiatric/Behavioral: Negative for behavioral problems and suicidal ideas. The patient is not nervous/anxious. All other systems reviewed and are negative. PHYSICAL EXAMINATION: BP 117/80 Pulse 95 Ht 5' 0 (1.52m) Wt 222 lb (100.7kg) SpO2 91% BMI 43.36 kg/(m2). Physical Exam Constitutional: Appearance: She is obese. She is not ill-appearing. Neck: Vascular: No carotid bruit. Cardiovascular: Rate and Rhythm: Regular rhythm. Heart sounds: No friction rub. No gallop. Pulmonary: Effort: No respiratory distress. Breath sounds: No wheezing, rhonchi or rales. Chest: Chest w (more content not included)... [facility] 06-25-2024 History of Presen t illness Narrative Images from the original note were not included. [facility] OUTPATIENT VISIT DATE June 25, 2024 OUTPATIENT VISIT TYPE New Cardiology Consult PRIMARY CARE PHYSICIAN: Luda Ann [address] [id number] HISTORY OF PRESENT ILLNESS: Emperatriz Ghosh is a 74 year old female here for New Patient. CARDIAC HISTORY: 74 F, Rina, referred by Korin Ann DO for coronary calcification on CT (, 02/16). Has LEA, Normal Echo without HOCM (2022), normal Cardiolite (07/17), chol, HBP, BMI 42+, Interstitial lung disease (sees pulmonary), GERD, ?elevated LFT's (no labs - per Dr. Ann). Family Hx HCM, but she is neg. 06/25/24 - [place]. Mid-chest pain with food getting stuck in esophagus, with indigestion. Has LEA, and a family Hx of HCM. ECHO was normal. CT chest in and showed severe coronary Ca++, but Cardiolite 07/17 was normal. EKG (today) - NSR, QTC 480 msec. RAO2 91%. Social History Tobacco Use Smoking status: Never Passive exposure: Never Smokeless tobacco: Never Substance Use Topics Alcohol use: Not Currently Drug use: Not Currently ALLERGIES No Known Allergies MEDICATIONS: NYSTOP powder APPLY TOPICALLY TO THE AFFECTED AREA DIRECTED nystatin-triamcinolone (MYCOLOG II) cream APPLY TOPICALLY TO THE AFFECTED AREA 2 TO 3 TIMES DAILY NEEDED morphine (PF) 5 mg/mL in NaCl 0.9% 20 mL PF MORPHINE 5 MG/ML SIMPLE CONTINUOUS RATE 0.8636 mg/ day PTM 0.0799 mg every 4 hours (max 6 doses per day) Total daily dose 1.3397mg Acetaminophen 500 mg cap Take 1,000 mg by mouth two times a day as needed. ascorbic acid, vitamin C, (VITAMIN C) 500 mg tablet Take 500 mg by mouth once daily. famotidine (PEPCID) 20 mg tablet Take 20 mg by mouth daily at bedtime. calcium carbonate (CALTRATE) 600 mg calcium (1,500 mg) tab Take by mouth every 24 hours. omeprazole (PRILOSEC) 40 mg capsule take 1 capsule by mouth every day before a meal ferrous sulfate (IRON) 325 mg (65 mg iron) tablet Take 325 mg by mouth. dorzolamide-timolol (COSOPT) 22.3-6.8 mg/mL ophthalmic solution INSTILL 1 DROP IN LEFT EYE TWICE DAILY cholecalciferol (VITAMIN D3) 5,000 unit tab Take 2,000 Units by mouth once daily. Last dose 09/26/22 Lactobac no.41/Bifidobact no.7 (PROBIOTIC-10 ORAL) Take 1 tablet by mouth every morning. tolterodine ER (DETROL LA) 4 mg 24 hr capsule Take 4 mg by mouth every morning. Zinc 50 mg tab as needed. latanoprost (XALATAN) 0.005 % ophthalmic solution Use 1 Drop in both eyes daily at bedtime. lisinopril-hydroCHLOROthiazide (PRINZIDE, ZESTORETIC) 20-25 mg per tablet Take 1 tablet by mouth every morning. simvastatin (ZOCOR) 20 mg tablet Take 20 mg by mouth daily at bedtime. brimonidine (ALPHAGAN) 0.2 % ophthalmic solution Use 1 Drop in the left eye twice daily. GLAUCOMA cyclobenzaprine (FLEXERIL) 10 mg tablet Take 10 mg by mouth three times daily as needed for muscle spasm. aspirin, enteric coated (ASPIRIN, ENTERIC COATED) 81 mg EC tablet Take 81 mg by mouth every morning. IS GOING TO CHECK WITH SURGEON AND PCP ABOUT WHEN NEEDS TO STOP ASA multivit with minerals/lutein (MULTIVITAMIN 50 PLUS ORAL) Last dose 09/26/22 folic acid 800 mcg tablet Take 800 mcg by mouth every morning. FROM PCP BLOOD NOT CLOT NORMAL PERSON gabapentin (NEURONTIN) 800 mg tablet Take 1 tablet by mouth three times a day for 120 days. lidocaine-prilocaine (EMLA) 2.5-2.5 % cream Apply to affected area as needed. 1-2 grams to affected area TID PRN REVIEW OF SYSTEMS: Review of Systems Constitutional: Negative for chills, diaphoresis, fatigue and fever. Eyes: Negative for visual disturbance. Respiratory: Positive for shortness of breath. Negative for cough, chest tightness and wheezing. Cardiovascular: Positive for chest pain. Negative for palpitations and leg swelling. Gastrointestinal: Negative for abdominal pain, constipation and vomiting. Endocrine: Negative for cold intolerance and heat intolerance. Musculoskeletal: Negative for back pain, joint swelling, myalgias and neck pain. Neurological: Negative for dizziness, seizures, syncope, speech difficulty, weakness, light-headedness, numbness and headaches. Psychiatric/Behavioral: Negative for behavioral problems and suicidal ideas. The patient is not nervous/anxious. All other systems reviewed and are negative. PHYSICAL EXAMINATION: BP 117/80 Pulse 95 Ht 5' 0 (1.52m) Wt 222 lb (100.7kg) SpO2 91% BMI 43.36 kg/(m^2). Physical Exam Constitutional: Appearance: She is obese. She is not ill-appearing. Neck: Vascular: No carotid bruit. Cardiovascular: Rate and Rhythm: Regular rhythm. Heart sounds: No friction rub. No gallop. Pulmonary: Effort: No respiratory distress. Breath sounds: No wheezing, rhonchi or rales. Chest: Chest wall: No tenderness. Musculoskeletal: Right lower leg: No edema. Left lower leg: No edema. Skin: Coloration: Skin is not jaundiced. Findings: No bruising. Neurological: Cranial Nerves: No cranial nerve deficit. Sensory: No sensory deficit. Motor: No weakness. Gait: Gait normal. IMPRESSION & RECOMMENDATIONS: 1. Coronary artery calcification seen on CT scan Noted above, with normal Cardiolite in 07/17. No significant fixed obstructive CAD demonstrated. Risk factor mod per Dr. Ann. Consider repeat Lexiscan Cardiolite. Non-cardiac CP - likely GI. 2. Dyspnea, unspecified type 06/25/24 - I suspect BMI 43+ causing some restrictive/interstitial lung disease, with poor conditioning. RAO2 91%. Dr. Ann may consider PFT's, FU pulmonary, weight loss strategies, exercise. 3. Hypercholesterolemia Per Dr. Ann. Has a Hx of elevated LFT's to unknown levels, so I will leave RX to Dr. Ann. Goal LDL < 55. On low dose Simvastatin. 4. Primary hypertension 06/25/24 - [place]. 5. BMI 40.0-44.9, adult (HCC) BMI 43+. Discuss diet and exercise, other bariatric meds or options with Dr. Ann. Pt does not require ongoing cardiac follow-up unless her condition changes. Risk factor mod per Dr. Ann. Mahamed Cardona MD documented in this encounter [facility] 03-18-2024 Telephone encounter Note Scheduled and confirmed with patient Emily Dobbins [facility] 03-18-2024 Miscellaneous Notes Scheduled and confirmed with patient Emily Dobbins New Patient Referral Requesting- Dr. Dulce Ghosh : 1950 Reason- CAD Records Scanned In Summary: referral Received a referral from [facility] the office of Dr. Ann. Patient is referred for CAD. documented in this encounter [facility] 03-18-2024 Telephone encounter Note New Patient Referral Requesting- Dr. Dulce Ghosh : 1950 Reason- CAD Records Scanned In [facility] 03-12-2024 Telephone encounter Note Summary: referral Received a referral from [facility] the office of Dr. Ann. Patient is referred for CAD. [facility] 02-19-2024 Telephone encounter Note Noted and thank you. [facility] 02-19-2024 Miscellaneous Notes Noted and thank you. Please call the pt and get her an appt with Maynor in [place]. Thank you documented in this encounter [facility] 02-19-2024 Telephone encounter Note I called patient to get her an appointment scheduled with Maynor Robles at [place], patient stated she is no longer with us that she is seeing Dr Lopez in [place]. Kaylene Driver MA February 19, 2024 10:02 AM [facility] 02-19-2024 Miscellaneous Notes I called patient to get her an appointment scheduled with Maynor Robles at [place], patient stated she is no longer with us that she is seeing Dr Lopez in [place]. Kaylene Driver MA February 19, 2024 10:02 AM documented in this encounter [facility] 02-19-2024 Telephone encounter Note Please call the pt and get her an appt with Maynor in [place]. Thank you [facility] 02-13-2024 History of Presen t illness Narrative Radiology Service Progress Note PATIENT NAME: Emperatriz Ghosh DATE OF SERVICE: February 13, 2024 TIME: 12:53 PM PATIENT IDENTITY VERIFICATION COMPLETED USING TWO (2) IDENTIFIERS: Name and Date of confirmed by patient verbally. FALL SCREENING: Has the patient had 2 falls in the last year or 1 fall with injury or currently using an Ambulatory Assistive Device (Walker, Cane, Wheelchair, Crutches, etc.)? Yes, Patient High Risk for Falls What interventions were put in place to prevent falls during this visit? Offered Assistance with Transfers/Clothing PATIENT GENDER DATA: Female. status: : No status: NO. PATIENT RELEVANT IMPLANT DATA REVIEWED: Yes PATIENT PRESENTS WITH AN IMPLANTABLE OR ATTACHED RAP ARTIST: No RADIOLOGY DEPARTMENT: General X-ray: Exam(s) Completed: Spine X-Ray(s): Lumbar AP / LAT / L5-S1 / OBL / FLEX-EXT PERIPHERAL IV DATA: Not applicable SIGNED BY: RT Bianca(Katarzyna) February 13, 2024 12:53 PM documented in this encounter [facility] 02-13-2024 Note HNO ID: [id number] Author: PHANI HEARD RT(Katarzyna) Service: ? Author Type: Technologist Type: Progress Notes Filed: 02/13/2024 12:54 Note Text: Radiology Service Progress Note PATIENT NAME: Emperatriz Ghosh DATE OF SERVICE: February 13, 2024 TIME: 12:53 PM PATIENT IDENTITY VERIFICATION COMPLETED USING TWO (2) IDENTIFIERS: Name and Date of confirmed by patient verbally. FALL SCREENING: Has the patient had 2 falls in the last year or 1 fall with injury or currently using an Ambulatory Assistive Device (Walker, Cane, Wheelchair, Crutches, etc.)? Yes, Patient High Risk for Falls What interventions were put in place to prevent falls during this visit? Offered Assistance with Transfers/Clothing PATIENT GENDER DATA: Female. status: : No status: NO. PATIENT RELEVANT IMPLANT DATA REVIEWED: Yes PATIENT PRESENTS WITH AN IMPLANTABLE OR ATTACHED RAP ARTIST: No RADIOLOGY DEPARTMENT: General X-ray: Exam(s) Completed: Spine X-Ray(s): Lumbar AP / LAT / L5-S1 / OBL / FLEX-EXT PERIPHERAL IV DATA: Not applicable SIGNED BY: RT Bianca(R) February 13, 2024 12:[address] [facility] 01-22-2024 Telephone encounter Note Script faxed to [facility] with confirmation. Maura Jarvis RN January 22, 2024 12:04 PM [facility] 01-22-2024 Miscellaneous Notes Script faxed to [facility] with confirmation. Maura Jarvis RN January 22, 2024 12:04 PM The following approved medication requests have been transmitted electronically. Requested Prescriptions Pending Prescriptions Disp Refills morphine (PF) 5 mg/mL in NaCl 0.9% 20 mL 20 mL 0 Sig: PF MORPHINE 5 MG/ML SIMPLE CONTINUOUS RATE 0.8636 mg/ day PTM 0.0799 mg every 4 hours (max 6 doses per day) Total daily dose 1.3397mg Maynor Robles PA-C [facility] requesting refills as follows: Requested Prescriptions Pending Prescriptions Disp Refills morphine (PF) 5 mg/mL in NaCl 0.9% 20 mL 20 mL 0 Sig: PF MORPHINE 5 MG/ML SIMPLE CONTINUOUS RATE 0.8636 mg/ day PTM 0.0799 mg every 4 hours (max 6 doses per day) Total daily dose 1.3397mg Last UDS: Pain pump patient Opioid agreement signed 07/31/23 Summary Report Date Value Ref Range Status 07/31/2023 FINAL Final Comment: Opiate Class, MS, Ur RFX Gabapentin, MS, Ur RFX Acetaminophen, MS, Ur RFX ToxAssure Flex 23, Ur Test Result Flag Units Drug Present and Declared for Prescription Verification Morphine 383 EXPECTED ng/mg creat Potential sources of morphine include administration of codeine or morphine, use of heroin, or ingestion of poppy seeds. Gabapentin PRESENT EXPECTED Drug Present not Declared for Prescription Verification Acetaminophen PRESENT UNEXPECTED Test Result Flag Units Ref Range Creatinine 41 mg/dL >=20 Declared Medications: The flagging and interpretation on this report are based on the following declared medications. Unexpected results may arise from inaccuracies in the declared medications. Note: The testing scope of this panel includes these medications: Gabapentin Morphine For clinical consultation, please call . No results found for: UQNOTE, OPIATEPNMGT, DRUGSCRPAIN Urine Panel: No results found for: UQCANN, UQBNZL, KTW4CVP, UQAMPH, UQMAMP, UQBUPRE, UQNORBUP, UQMTHD, UQEDDP, UQTRAM, UQDTRM, UQFNTL, UQNFTL, UQCODE, UQMORP, UQDCDN, UQHCOD, UQOXYC, UQHMOR, UQOXYM, UQCREA, UQPH, UQSPGR, UQOXID, UQSPQ @FLOW([id number])@ Lab Results Component Value Date SUMM FINAL 07/31/2023 No results found for: SUMMAR Last Opioid agreement effective date: 07/31/2023 Please review and advise. Yue Ramirez RN documented in this encounter [facility] 01-22-2024 Telephone encounter Note The following approved medication requests have been transmitted electronically. Requested Prescriptions Pending Prescriptions Disp Refills morphine (PF) 5 mg/mL in NaCl 0.9% 20 mL 20 mL 0 Sig: PF MORPHINE 5 MG/ML SIMPLE CONTINUOUS RATE 0.8636 mg/ day PTM 0.0799 mg every 4 hours (max 6 doses per day) Total daily dose 1.3397mg Maynor Robles PA-C [facility] 01-22-2024 Telephone encounter Note [facility] requesting refills as follows: Requested Prescriptions Pending Prescriptions Disp Refills morphine (PF) 5 mg/mL in NaCl 0.9% 20 mL 20 mL 0 Sig: PF MORPHINE 5 MG/ML SIMPLE CONTINUOUS RATE 0.8636 mg/ day PTM 0.0799 mg every 4 hours (max 6 doses per day) Total daily dose 1.3397mg Last UDS: Pain pump patient Opioid agreement signed 07/31/23 Summary Report Date Value Ref Range Status 07/31/2023 FINAL Final Comment: Opiate Class, MS, Ur RFX Gabapentin, MS, Ur RFX Acetaminophen, MS, Ur RFX ToxAssure Flex 23, Ur Test Result Flag Units Drug Present and Declared for Prescription Verification Morphine 383 EXPECTED ng/mg creat Potential sources of morphine include administration of codeine or morphine, use of heroin, or ingestion of poppy seeds. Gabapentin PRESENT EXPECTED Drug Present not Declared for Prescription Verification Acetaminophen PRESENT UNEXPECTED Test Result Flag Units Ref Range Creatinine 41 mg/dL >=20 Declared Medications: The flagging and interpretation on this report are based on the following declared medications. Unexpected results may arise from inaccuracies in the declared medications. Note: The testing scope of this panel includes these medications: Gabapentin Morphine For clinical consultation, please call . No results found for: UQNOTE, OPIATEPNMGT, DRUGSCRPAIN Urine Panel: No results found for: UQCANN, UQBNZL, DDA9EXA, UQAMPH, UQMAMP, UQBUPRE, UQNORBUP, UQMTHD, UQEDDP, UQTRAM, UQDTRM, UQFNTL, UQNFTL, UQCODE, UQMORP, UQDCDN, UQHCOD, UQOXYC, UQHMOR, UQOXYM, UQCREA, UQPH, UQSPGR, UQOXID, UQSPQ @FLOW([id number])@ Lab Results Component Value Date SUMM FINAL 07/31/2023 No results found for: SUMMAR Last Opioid agreement effective date: 07/31/2023 Please review and advise. Yue Ramirez RN [facility] 12-31-2023 Telephone encounter Note LM for pt to return call to update us on new pain pump provider. Referral to Dr Chase was faxed 12/15. Maura Jarvis RN December 31, 2023 1:44 PM [facility] 12-31-2023 Miscellaneous Notes LM for pt to return call to update us on new pain pump provider. Referral to Dr Chase was faxed 12/15. Maura Jarvis RN December 31, 2023 1:44 PM documented in this encounter [facility] 12-23-2023 Note HNO ID: [id number] Author: LAURA SHAFFER PT DPFederico Service: ? Author Type: Physical Therapist Type: Progress Notes Filed: 12/23/2023 10:40 Note Text: Episode Visit Count: 29 Therapist That Will Accept/Oversee The Plan Of Care: Laura Shaffer PT DPT Start of Care Date: 10/02/23 Onset Date: 09/30/23 Plan of Care Certification Date: 10/02/23 Next Certification Due Date: 12/25/23 Patient Identified by Name and Date of : Yes REHABILITATION AND SPORTS THERAPY PHYSICAL THERAPY DISCONTINUANCE OF CARE PLAN OF CARE UPDATE: Assessment: Emperatriz Ghosh is discontinued from Physical Therapy services due to goal achievement.. Patient was seen for 29 visits from Start of Care Date: 10/02/23 to 12/23/2023 and treatment included: Therapeutic exercise, Manual therapy, and Therapeutic activities. The patient met 6/6 halfway goals except manual muscle testing for left hip abduction. Addressed 12/23/2023 Goals for Episode of Care: created on 10/02/23 through 12/25/23 [place] in home exercise program. - Met Patient will decrease pain to 2/10 with functional activities to allow patient to improve ambulation and transfers. - Met Patient will increase active ROM of left knee to 0-115 degrees to allow pt to to improve gait mechanics / gait pattern . - Met Patient will demonstrate increase in left lower extremity strength to 4+/5 during manual muscle testing in order to improve function for prior functional tasks. - Met except left hip abduction Normal gait. - Met Reciprocal stair negotiation. - Met Patient Goals: The patient's goal is to get knee functional. SUBJECTIVE: The patient reports her knee is strong and stable. She has no troubles. She is using a standard cane, but it's because of her back. Functional Limitations: walking in the community, stair negotiation, lifting, physical activities, recreational activities Pain: Pain Pain Level: 0 Pain Location: Knee - Left PROMIS Scales T-scores: mean of general population = 50. 5 points is clinically meaningfully difference Percentiles provide an indication of how the patient's score ranks in relation to the general population. Higher percentile rankings indicate better function/quality of life. 50th percentile is the average of the general population and indicates half of respondents had a worse score. OBJECTIVE MEASURES WITH LEVEL OF FUNCTION: LE AROM L Knee Extension: 0 Degrees L Knee Flexion: 122 Degrees LE Strength L Hip Flexion (L2): 4+/5 L Hip ABduction: 4/5 L Hip ADduction: 4+/5 L Knee Extension (L3): 5/5 L Knee Flexion: 5/5 L Ankle Dorsiflexion (L4): 5/5 L Ankle Plantar Flexion: 5/5 TREATMENT: Therapeutic Exercise: 1: Heel slide 2 x 15 with 5 seconds, left with strap 2: Incline gastroc stretch 2 x 30 seconds, both 4: Step knee extension 4 x 15 seconds, left (alternate with flexion) 5: Step knee flexion 4 x 15 seconds, left (alternating with extension) 6: LAQ's 4# 2 x 15 7: Multi hip flexion with knee bent #10 2 x 15, left 8: Multihip abduction left 10# 2 x 15 9: Shuttle bilateral leg press 62# 2 x 15 10: Shuttle bilateral calf press 62# 2 x 15 12: Retro walk at cable 17.5# x 8 laps with 10 marches on rep 13: Recumbant stepper Level 3 x 10 minutes (not billed) Seat 9 Skilled Intervention: Skilled judgment was used in selection of appropriate interventions. Correct performance of therapeutic exercises was facilitated with verbal cuing. Manual Therapy: 1: Assessed goals Skilled Intervention: Manual skills to improve joint mobility, ROM, and decrease pain. Utilized anatomy knowledge of the therapist, and assessment of patient's response to intervention. Therapeutic Activity: 1: Step up 6 step 2 x 15 Skilled Intervention: Correct performance of home program was facilitated with verbal cueing. Cold pack applied to left knee with patient in supine for 10 minutes at the end of the session. Cold pack time not included in billed treatment time. Billing KX Modifier : Therapist attests that services rendered are medically necessary. Therapeutic Exercise Treatment Minutes: 28 Manual TherapyTreatment Minutes: 5 Therapeutic Activity Treatment Minutes: 5 Skilled Treatment Time Minutes (timed and untimed codes): 40 Total Session Time (minutes): 64 Session Start Time : 931 Session Stop Time : 1036 Laura Shaffer PT, DPT [facility] 12-23-2023 History of Presen t illness Narrative Episode Visit Count: 29 Therapist That Will Accept/Oversee The Plan Of Care: Laura Shaffer PT, DPT Start of Care Date: 10/02/23 Onset Date: 09/30/23 Plan of Care Certification Date: 10/02/23 Next Certification Due Date: 12/25/23 Patient Identified by Name and Date of : Yes REHABILITATION AND SPORTS THERAPY PHYSICAL THERAPY DISCONTINUANCE OF CARE PLAN OF CARE UPDATE: Assessment: Emperatriz Ghosh is discontinued from Physical Therapy services due to goal achievement.. Patient was seen for 29 visits from Start of Care Date: 10/02/23 to 12/23/2023 and treatment included: Therapeutic exercise, Manual therapy, and Therapeutic activities. The patient met 6/6 halfway goals except manual muscle testing for left hip abduction. Addressed 12/23/2023 Goals for Episode of Care: created on 10/02/23 through 12/25/23 [place] in home exercise program. - Met Patient will decrease pain to 2/10 with functional activities to allow patient to improve ambulation and transfers. - Met Patient will increase active ROM of left knee to 0-115 degrees to allow pt to to improve gait mechanics / gait pattern . - Met Patient will demonstrate increase in left lower extremity strength to 4+/5 during manual muscle testing in order to improve function for prior functional tasks. - Met except left hip abduction Normal gait. - Met Reciprocal stair negotiation. - Met Patient Goals: The patient's goal is to get knee functional. SUBJECTIVE: The patient reports her knee is strong and stable. She has no troubles. She is using a standard cane, but it's because of her back. Functional Limitations: walking in the community, stair negotiation, lifting, physical activities, recreational activities Pain: Pain Pain Level: 0 Pain Location: Knee - Left PROMIS Scales T-scores: mean of general population = 50. 5 points is clinically meaningfully difference Percentiles provide an indication of how the patient's score ranks in relation to the general population. Higher percentile rankings indicate better function/quality of life. 50th percentile is the average of the general population and indicates half of respondents had a worse score. OBJECTIVE MEASURES WITH LEVEL OF FUNCTION: LE AROM L Knee Extension: 0 Degrees L Knee Flexion: 122 Degrees LE Strength L Hip Flexion (L2): 4+/5 L Hip ABduction: 4/5 L Hip ADduction: 4+/5 L Knee Extension (L3): 5/5 L Knee Flexion: 5/5 L Ankle Dorsiflexion (L4): 5/5 L Ankle Plantar Flexion: 5/5 TREATMENT: Therapeutic Exercise: 1: Heel slide 2 x 15 with 5 seconds, left with strap 2: Incline gastroc stretch 2 x 30 seconds, both 4: Step knee extension 4 x 15 seconds, left (alternate with flexion) 5: Step knee flexion 4 x 15 seconds, left (alternating with extension) 6: LAQ's 4# 2 x 15 7: Multi hip flexion with knee bent #10 2 x 15, left 8: Multihip abduction left 10# 2 x 15 9: Shuttle bilateral leg press 62# 2 x 15 10: Shuttle bilateral calf press 62# 2 x 15 12: Retro walk at cable 17.5# x 8 laps with 10 marches on rep 13: Recumbant stepper Level 3 x 10 minutes (not billed) Seat 9 Skilled Intervention: Skilled judgment was used in selection of appropriate interventions. Correct performance of therapeutic exercises was facilitated with verbal cuing. Manual Therapy: 1: Assessed goals Skilled Intervention: Manual skills to improve joint mobility, ROM, and decrease pain. Utilized anatomy knowledge of the therapist, and assessment of patient's response to intervention. Therapeutic Activity: 1: Step up 6 step 2 x 15 Skilled Intervention: Correct performance of home program was facilitated with verbal cueing. Cold pack applied to left knee with patient in supine for 10 minutes at the end of the session. Cold pack time not included in billed treatment time. Billing KX Modifier : Therapist attests that services rendered are medically necessary. Therapeutic Exercise Treatment Minutes: 28 Manual TherapyTreatment Minutes: 5 Therapeutic Activity Treatment Minutes: 5 Skilled Treatment Time Minutes (timed and untimed codes): 40 Total Session Time (minutes): 64 Session Start Time : 0932 Session Stop Time : 1036 Laura Shaffer PT, DPT documented in this encounter [facility] 12-18-2023 Note HNO ID: [id number] Author: DWAIN KOLB PTA Service: ? Author Type: Blade Aligner Type: Progress Notes Filed: 12/18/2023 14:46 Note Text: Episode Visit Count: 28 Therapist That Will Accept/Oversee The Plan Of Care: Laura Shaffer PT, DPT Start of Care Date: 10/02/23 Onset Date: 09/30/23 Plan of Care Certification Date: 10/02/23 Next Certification Due Date: 12/25/23 Patient Identified by Name and Date of : Yes REHABILITATION AND SPORTS THERAPY PHYSICAL THERAPY TREATMENT NOTE ASSESSMENT: Emperatriz Ghosh tolerated the session with no increased in pain. She demonstrated improvements in tolerance with activities but requires cues for execution for some. She also demonstrates improved tolerance with stretching activities. The patient will continue to benefit from ongoing skilled physical therapy to progress toward set goals. PLAN FOR NEXT VISIT: L TKA protocol to improve left knee flexion range of motion and strength. SUBJECTIVE: Pt notes that she had some aching in her knee a while ago, but it has resolved. Pain: Pain Pain Level: 0 Pain Location: Knee - Left Post Treatment Pain Post Treatment Pain Level: 0 Post Treatment Pain Location: Knee - Left OBJECTIVE MEASURES WITH LEVEL OF FUNCTION: No objective measure taken this date. TREATMENT: Therapeutic Exercise: 1: Heel slide 2 x 15 with 5 seconds, left with strap 2: Incline gastroc stretch 2 x 30 seconds, both 3: SLR 2 x 10, left 4: Step knee extension 4 x 15 seconds, left (alternate with flexion) 5: Step knee flexion 4 x 15 seconds, left (alternating with extension) 6: LAQ's 4# 3 x 10 7: Multi hip flexion with knee bent #10 2 x 15, left 8: Multihip abduction left 10# 2 x 15 9: Shuttle bilateral leg press 62# 2 x 15 10: Shuttle bilateral calf press 62# 2 x 15 11: Shuttle left knee flexion stretch 50# 5 x 10 second hold 12: Retro walk at cable 17.5# x 8 laps with 10 marches on 8th rep 13: Recumbant stepper Level 3 x 10 minutes (not billed) Seat 9 Skilled Intervention: Skilled judgment was used in selection of appropriate interventions. Correct performance of therapeutic exercises was facilitated with verbal and visual cuing. Therapeutic Activity: 1: Step up 6 step 2 x 15 Skilled Intervention: Educated on proper/safe technique for activities performed today. Activity progression based on professional judgment. Billing KX Modifier : Therapist attests that services rendered are medically necessary. Therapeutic Exercise Treatment Minutes: 45 Therapeutic Activity Treatment Minutes: 5 Skilled Treatment Time Minutes (timed and untimed codes): 50 Total Session Time (minutes): 70 Session Start Time : 1330 Session Stop Time : 1440 Time spent on recumbent stepper not included in billed treatment time. Cold pack applied to L knee with patient in supine for 10 minutes at the end of the session. Cold pack time not included in billed treatment time. Dwain Kolb [facility] 12-18-2023 History of Presen t illness Narrative Episode Visit Count: 28 Therapist That Will Accept/Oversee The Plan Of Care: Laura Shaffer, PT, DPT Start of Care Date: 10/02/23 Onset Date: 09/30/23 Plan of Care Certification Date: 10/02/23 Next Certification Due Date: 12/25/23 Patient Identified by Name and Date of : Yes REHABILITATION AND SPORTS THERAPY PHYSICAL THERAPY TREATMENT NOTE ASSESSMENT: Emperatriz Ghosh tolerated the session with no increased in pain. She demonstrated improvements in tolerance with activities but requires cues for execution for some. She also demonstrates improved tolerance with stretching activities. The patient will continue to benefit from ongoing skilled physical therapy to progress toward set goals. PLAN FOR NEXT VISIT: L TKA protocol to improve left knee flexion range of motion and strength. SUBJECTIVE: Pt notes that she had some aching in her knee a while ago, but it has resolved. Pain: Pain Pain Level: 0 Pain Location: Knee - Left Post Treatment Pain Post Treatment Pain Level: 0 Post Treatment Pain Location: Knee - Left OBJECTIVE MEASURES WITH LEVEL OF FUNCTION: No objective measure taken this date. TREATMENT: Therapeutic Exercise: 1: Heel slide 2 x 15 with 5 seconds, left with strap 2: Incline gastroc stretch 2 x 30 seconds, both 3: SLR 2 x 10, left 4: Step knee extension 4 x 15 seconds, left (alternate with flexion) 5: Step knee flexion 4 x 15 seconds, left (alternating with extension) 6: LAQ's 4# 3 x 10 7: Multi hip flexion with knee bent #10 2 x 15, left 8: Multihip abduction left 10# 2 x 15 9: Shuttle bilateral leg press 62# 2 x 15 10: Shuttle bilateral calf press 62# 2 x 15 11: Shuttle left knee flexion stretch 50# 5 x 10 second hold 12: Retro walk at cable 17.5# x 8 laps with 10 marches on rep 13: Recumbant stepper Level 3 x 10 minutes (not billed) Seat 9 Skilled Intervention: Skilled judgment was used in selection of appropriate interventions. Correct performance of therapeutic exercises was facilitated with verbal and visual cuing. Therapeutic Activity: 1: Step up 6 step 2 x 15 Skilled Intervention: Educated on proper/safe technique for activities performed today. Activity progression based on professional judgment. Billing KX Modifier : Therapist attests that services rendered are medically necessary. Therapeutic Exercise Treatment Minutes: 45 Therapeutic Activity Treatment Minutes: 5 Skilled Treatment Time Minutes (timed and untimed codes): 50 Total Session Time (minutes): 70 Session Start Time : 1330 Session Stop Time : 1440 Time spent on recumbent stepper not included in billed treatment time. Cold pack applied to L knee with patient in supine for 10 minutes at the end of the session. Cold pack time not included in billed treatment time. Dwain Kolb PTA documented in this encounter [facility] 12-18-2023 Instructions Maynor Robles PA-C - 12/18/2023 10:24 AM EDT The OAR[facility] report has been reviewed and is consistent with the patients medical history and medication intake. The patient will continue with her intrathecal morphine pump and PTM dosing. Continue with the gabapentin 800 mg three times a day, tizanidine 4 mg 1/2-1 tab up to three times a day as needed, and compounded cream. Cut the tizanidine in half to help with drowsiness. She will continue using her TENS unit. Try using this more regularly around the back. Continue with core strengthening and range of motion exercises. Weight reduction. FU in the office in [address] Chase regarding the intrathecal pump management due to Dr. Andrews leaving 02/26/24. The referral has been sent. If you are able to get in with him prior to your next visit with us, call and cancel your appointment. I discussed the patient with Dr. Andrews who agrees with my assessment and plan. All of the above is to improve functionality and quality of life. No evidence of drug abuse or diversion is seen at this time. documented in this encounter [facility] 12-18-2023 Note HNO ID: [id number] Author: MAYNOR ROBLES PA-C Service: ? Author Type: Physician Civil Engineering Teacher Type: Progress Notes Filed: 12/18/2023 10:40 Note Text: This note was created using [employer]. Subjective Emperatriz Ghosh is a 73 year old female. The patient primarily being seen for back pain Patient was last seen on: 09/16/23 At that time, the treatment plan was: see notes Current Meds: Morphine pump/ Cream Gabapentin AM Tizanidine prn Efficacy: some Side effects: drowsiness TENS unit: yes How often used: prn Benefit: Physical Therapy: Last UDS: 07/31/23 Last injection: 06/27/23-b/l SI OARRS reviewed At the present time, the patient reports some benefit with her present analgesic therapy. She has some issues with drowsiness with the tizanidine. Since her previous visit, she had a left knee replacement done 09/30/23. She states it went well. Otherwise, she has nothing further to discuss at this time. 12/11/2023 12/18/2023 INTAKE PAIN ASSESSMENT Are you having pain associated with your visit today? 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 Back pain Essential hypertension HIGH CHOL GERD (gastroesophageal reflux disease) Hiatal hernia High cholesterol Incontinence of urine Joint pain Sleep apnea mild sleep apnea- no cpap used Wears glasses PAST SURGICAL HISTORY Procedure Laterality Date BLADDER SURGERY HX REPAIR AND LIFT CARPAL TUNNEL RIGHT WRIST Right 02/2023 HYSTERECTOMY HX VAGINAL INTRATHECAL PUMP PLACEMENT 09/28/2022 ORTHOPEDICS SURGERY HX HIP REPLACED TOTAL KNEE REPLACEMENT Right RIGHT TOTAL KNEE REPLACED Social History Tobacco Use Smoking status: Never Passive exposure: Never Smokeless tobacco: Never Substance Use Topics Alcohol use: Not Currently Drug use: Not Currently Review of Systems Constitutional: Negative for fever and unexpected weight change. Musculoskeletal: + back pain, joint pain, stiffness, and arthritis Neurological: Positive for difficulty walking Objective BP 92/59 (BP Site: Left Arm, BP Position: Sitting, BP Cuff Size: Large Adult) Pulse 104 Temp 36.2 ?C (97.2 ?F) (Temporal) Resp 18 LMP (LMP Unknown) SpO2 94% Physical Exam Vitals and nursing note reviewed. Constitutional: Appearance: Normal appearance. She is well-developed and well-groomed. She is obese. HENT: Head: Normocephalic and atraumatic. Right Ear: Hearing normal. Left Ear: Hearing normal. Eyes: Conjunctiva/sclera: Conjunctivae normal. Comments: Wearing glasses Musculoskeletal: Comments: Patient walks using a cane. There is tenderness noted int he lumbar region and over the SI joints bilaterally. + FABERs, compression, and distraction tests noted. She has spasms noted in the paraspinal muscles. Strength is 5/5 throughout. Sensation is intact to light touch throughout. SLR is negative. Neurological: Mental Status: She is alert and oriented to person, place, and time. Psychiatric: Attention and Perception: Attention and perception normal. Mood and Affect: Mood and affect normal. Speech: Speech normal. Behavior: Behavior normal. Behavior is cooperative. Thought Content: Thought content normal. Judgment: Judgment normal. Assessment and Plan ASSESSMENT/PLAN: 1. Lumbar postlaminectomy syndrome - ICD9: 722.83, ICD10: M96.1 (primary diagnosis) The OARRS report has been reviewed and is consistent with the patients medical history and medication intake. The patient will continue with her intrathecal morphine pump and PTM dosing. Continue with the gabapentin 800 mg three times a day, tizanidine 4 mg 1/2-1 tab up to three times a day as needed, and compounded cream. Cut the tizanidine in half to help with drowsiness. She will continue using her TENS unit. Try using this more regularly around the back. Continue with core strengthening and range of motion exercises. Weight reduction. FU in the office in [address] Chase regarding the intrathecal pump management due to Dr. Andrews leaving 02/26/24. The referral has been sent. If you are able to get in with him prior to your next visit with us, call and cancel your appointment. 2. Lumbar spondylosis - ICD9: 721.3, ICD10: M47.816 3. Sacroiliitis (HCC) - ICD9: 720.2, ICD10: M46.1 4. Lumbar radiculopathy - ICD9: 724.4, ICD10: M54.16 5. Radiculitis, thoracic - ICD9: 724.4, ICD10: M54.14 6. Myofascial pain syndrome - ICD9: 729.1, ICD10: M79.18 7. Carpal tunnel syndrome, bilateral - ICD9: 354.0, ICD10: G56.03 8. Implantable intrathecal infusion pump present - ICD9: V45.89, ICD10: Z96.89 Maynor Robles PA-C [facility] [facility] 12-18-2023 History of Presen t illness Narrative This note was created using [employer]. Subjective Emperatriz Ghosh is a 73 year old female. The patient primarily being seen for back pain Patient was last seen on: 09/16/23 At that time, the treatment plan was: see notes Current Meds: Morphine pump/ Cream Gabapentin AM Tizanidine prn Efficacy: some Side effects: drowsiness TENS unit: yes How often used: prn Benefit: Physical Therapy: Last UDS: 07/31/23 Last injection: 06/27/23-b/l SI OARRS reviewed At the present time, the patient reports some benefit with her present analgesic therapy. She has some issues with drowsiness with the tizanidine. Since her previous visit, she had a left knee replacement done 09/30/23. She states it went well. Otherwise, she has nothing further to discuss at this time. 12/11/2023 12/18/2023 INTAKE PAIN ASSESSMENT Are you having pain associated with your visit today? 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 Back pain Essential hypertension HIGH CHOL GERD (gastroesophageal reflux disease) Hiatal hernia High cholesterol Incontinence of urine Joint pain Sleep apnea mild sleep apnea- no cpap used Wears glasses PAST SURGICAL HISTORY Procedure Laterality Date BLADDER SURGERY HX REPAIR AND LIFT CARPAL TUNNEL RIGHT WRIST Right 02/2023 HYSTERECTOMY HX VAGINAL INTRATHECAL PUMP PLACEMENT 09/28/2022 ORTHOPEDICS SURGERY HX HIP REPLACED TOTAL KNEE REPLACEMENT Right RIGHT TOTAL KNEE REPLACED Social History Tobacco Use Smoking status: Never Passive exposure: Never Smokeless tobacco: Never Substance Use Topics Alcohol use: Not Currently Drug use: Not Currently Review of Systems Constitutional: Negative for fever and unexpected weight change. Musculoskeletal: + back pain, joint pain, stiffness, and arthritis Neurological: Positive for difficulty walking Objective BP 92/59 (BP Site: Left Arm, BP Position: Sitting, BP Cuff Size: Large Adult) Pulse 104 Temp 36.2 C (97.2 F) (Temporal) Resp 18 LMP (LMP Unknown) SpO2 94% Physical Exam Vitals and nursing note reviewed. Constitutional: Appearance: Normal appearance. She is well-developed and well-groomed. She is obese. HENT: Head: Normocephalic and atraumatic. Right Ear: Hearing normal. Left Ear: Hearing normal. Eyes: Conjunctiva/sclera: Conjunctivae normal. Comments: Wearing glasses Musculoskeletal: Comments: Patient walks using a cane. There is tenderness noted int he lumbar region and over the SI joints bilaterally. + FABERs, compression, and distraction tests noted. She has spasms noted in the paraspinal muscles. Strength is 5/5 throughout. Sensation is intact to light touch throughout. SLR is negative. Neurological: Mental Status: She is alert and oriented to person, place, and time. Psychiatric: Attention and Perception: Attention and perception normal. Mood and Affect: Mood and affect normal. Speech: Speech normal. Behavior: Behavior normal. Behavior is cooperative. Thought Content: Thought content normal. Judgment: Judgment normal. Assessment and Plan ASSESSMENT/PLAN: 1. Lumbar postlaminectomy syndrome - ICD9: 722.83, ICD10: M96.1 (primary diagnosis) The OARRS report has been reviewed and is consistent with the patients medical history and medication intake. The patient will continue with her intrathecal morphine pump and PTM dosing. Continue with the gabapentin 800 mg three times a day, tizanidine 4 mg 1/2-1 tab up to three times a day as needed, and compounded cream. Cut the tizanidine in half to help with drowsiness. She will continue using her TENS unit. Try using this more regularly around the back. Continue with core strengthening and range of motion exercises. Weight reduction. FU in the office in [address] Chase regarding the intrathecal pump management due to Dr. Andrews leaving 02/26/24. The referral has been sent. If you are able to get in with him prior to your next visit with us, call and cancel your appointment. 2. Lumbar spondylosis - ICD9: 721.3, ICD10: M47.816 3. Sacroiliitis (HCC) - ICD9: 720.2, ICD10: M46.1 4. Lumbar radiculopathy - ICD9: 724.4, ICD10: M54.16 5. Radiculitis, thoracic - ICD9: 724.4, ICD10: M54.14 6. Myofascial pain syndrome - ICD9: 729.1, ICD10: M79.18 7. Carpal tunnel syndrome, bilateral - ICD9: 354.0, ICD10: G56.03 8. Implantable intrathecal infusion pump present - ICD9: V45.89, ICD10: Z96.89 Maynor Robles PA-C documented in this encounter [facility] 12-16-2023 Telephone encounter Note Order is signed. [facility] 12-16-2023 Miscellaneous Notes Order is signed. Summary: IT pump referral I reached out to Dr Chase's office and was told that he is accepting new patients at this time. I called patient and she is willing to go see Dr Chase. Please send referral and we will follow up with patient. Maura Medrano documented in this encounter [facility] 12-16-2023 Telephone encounter Note Summary: IT pump referral I reached out to Dr Chase's office and was told that he is accepting new patients at this time. I called patient and she is willing to go see Dr Chase. Please send referral and we will follow up with patient. Maura Medrano [facility] 12-11-2023 Note HNO ID: [id number] Author: DWAIN KOLB PTA Service: ? Author Type: Blade Aligner Type: Progress Notes Filed: 12/11/2023 12:07 Note Text: Episode Visit Count: 27 Therapist That Will Accept/Oversee The Plan Of Care: Laura Shaffer, PT, DPT Start of Care Date: 10/02/23 Onset Date: 09/30/23 Plan of Care Certification Date: 10/02/23 Next Certification Due Date: 12/25/23 Patient Identified by Name and Date of : Yes REHABILITATION AND SPORTS THERAPY PHYSICAL THERAPY TREATMENT NOTE ASSESSMENT: Emperatriz Ghosh tolerated the session with expected muscle soreness. She demonstrated improvements in tolerance with hip abduction on the multihip, although it is still challenging for the pt. She also tolerated increased reps for supine slr's and increased resistance for single leg stretch on the shuttle. The patient will continue to benefit from ongoing skilled physical therapy to progress toward set goals. PLAN FOR NEXT VISIT: L TKA protocol to improve left knee flexion range of motion and strength. SUBJECTIVE: I notice just a little bit of pain this morning Pain: Pain Pain Level: 1 Pain Location: Knee - Left Post Treatment Pain Post Treatment Pain Level: 1 Post Treatment Pain Location: Knee - Left OBJECTIVE MEASURES WITH LEVEL OF FUNCTION: TREATMENT: Therapeutic Exercise: 1: Heel slide 2 x 15 with 5 seconds, left with strap 2: Incline gastroc stretch 2 x 30 seconds, both 3: SLR 2 x 10, left (Increased reps) 4: Step knee extension 4 x 15 seconds, left (alternate with flexion) 5: Step knee flexion 4 x 15 seconds, left (alternating with extension) 6: LAQ's 4# 3 x 10 7: Multi hip flexion with knee bent #10 2 x 15, left 8: Multihip abduction left 10# 2 x 15 9: Shuttle bilateral leg press 62# 2 x 15 10: Shuttle bilateral calf press 62# 2 x 15 11: Shuttle left knee flexion stretch 50# 5 x 10 second hold (Increased resistance) 12: Retro walk at cable 17.5# x 8 laps with 10 marches on 8th rep 13: Recumbant stepper Level 3 x 10 minutes (not billed) Seat 9 Skilled Intervention: Skilled judgment was used in selection of appropriate interventions. Correct performance of therapeutic exercises was facilitated with verbal and visual cuing. Therapeutic Activity: 1: Step up 6 step 2 x 15 Skilled Intervention: Educated on proper/safe technique for activities performed today. Billing KX Modifier : Therapist attests that services rendered are medically necessary. Therapeutic Exercise Treatment Minutes: 35 Therapeutic Activity Treatment Minutes: 5 Skilled Treatment Time Minutes (timed and untimed codes): 40 Total Session Time (minutes): 60 Session Start Time : 1055 Session Stop Time : 1155 Time spent on recumbent stepper not included in billed treatment time. Cold pack applied to L knee with patient in supine for 10 minutes at the end of the session. Cold pack time not included in billed treatment time. Dwain Kolb [facility] 12-11-2023 History of Presen t illness Narrative Episode Visit Count: 27 Therapist That Will Accept/Oversee The Plan Of Care: Laura Shaffer, PT, DPT Start of Care Date: 10/02/23 Onset Date: 09/30/23 Plan of Care Certification Date: 10/02/23 Next Certification Due Date: 12/25/23 Patient Identified by Name and Date of : Yes REHABILITATION AND SPORTS THERAPY PHYSICAL THERAPY TREATMENT NOTE ASSESSMENT: Emperatriz Ghosh tolerated the session with expected muscle soreness. She demonstrated improvements in tolerance with hip abduction on the multihip, although it is still challenging for the pt. She also tolerated increased reps for supine slr's and increased resistance for single leg stretch on the shuttle. The patient will continue to benefit from ongoing skilled physical therapy to progress toward set goals. PLAN FOR NEXT VISIT: L TKA protocol to improve left knee flexion range of motion and strength. SUBJECTIVE: I notice just a little bit of pain this morning Pain: Pain Pain Level: 1 Pain Location: Knee - Left Post Treatment Pain Post Treatment Pain Level: 1 Post Treatment Pain Location: Knee - Left OBJECTIVE MEASURES WITH LEVEL OF FUNCTION: TREATMENT: Therapeutic Exercise: 1: Heel slide 2 x 15 with 5 seconds, left with strap 2: Incline gastroc stretch 2 x 30 seconds, both 3: SLR 2 x 10, left (Increased reps) 4: Step knee extension 4 x 15 seconds, left (alternate with flexion) 5: Step knee flexion 4 x 15 seconds, left (alternating with extension) 6: LAQ's 4# 3 x 10 7: Multi hip flexion with knee bent #10 2 x 15, left 8: Multihip abduction left 10# 2 x 15 9: Shuttle bilateral leg press 62# 2 x 15 10: Shuttle bilateral calf press 62# 2 x 15 11: Shuttle left knee flexion stretch 50# 5 x 10 second hold (Increased resistance) 12: Retro walk at cable 17.5# x 8 laps with 10 marches on 8th rep 13: Recumbant stepper Level 3 x 10 minutes (not billed) Seat 9 Skilled Intervention: Skilled judgment was used in selection of appropriate interventions. Correct performance of therapeutic exercises was facilitated with verbal and visual cuing. Therapeutic Activity: 1: Step up 6 step 2 x 15 Skilled Intervention: Educated on proper/safe technique for activities performed today. Billing KX Modifier : Therapist attests that services rendered are medically necessary. Therapeutic Exercise Treatment Minutes: 35 Therapeutic Activity Treatment Minutes: 5 Skilled Treatment Time Minutes (timed and untimed codes): 40 Total Session Time (minutes): 60 Session Start Time : 1055 Session Stop Time : 1155 Time spent on recumbent stepper not included in billed treatment time. Cold pack applied to L knee with patient in supine for 10 minutes at the end of the session. Cold pack time not included in billed treatment time. Dwain Kolb PTA documented in this encounter [facility] 12-09-2023 Miscellaneous Notes List of possible pain pump providers mailed to the patient. Maura Jarvis RN December 09, 2023 2:46 PM Summary: Pain pump patient Left message for pt to return call regarding finding a new pain pump provider. Maura Jarvis RN December 09, 2023 2:11 PM documented in this encounter [facility] 12-09-2023 Note HNO ID: [id number] Author: DWAIN KOLB PTA Service: ? Author Type: Blade Aligner Type: Progress Notes Filed: 12/09/2023 11:59 Note Text: Episode Visit Count: 26 Therapist That Will Accept/Oversee The Plan Of Care: Laura Shaffer PT, DPT Start of Care Date: 10/02/23 Onset Date: 09/30/23 Plan of Care Certification Date: 10/02/23 Next Certification Due Date: 12/25/23 Patient Identified by Name and Date of : Yes REHABILITATION AND SPORTS THERAPY PHYSICAL THERAPY TREATMENT NOTE ASSESSMENT: Emperatriz Ghosh tolerated the session with no issues. She demonstrated improvements in carryover reporting continued painfree status and that she feels stronger. She also tolerated increased resistance on the shuttle.The patient will continue to benefit from ongoing skilled physical therapy to progress toward set goals. PLAN FOR NEXT VISIT: L TKA protocol to improve left knee flexion range of motion and strength. SUBJECTIVE: Walking in here there was no pain. I feel strong and sturdy Pain: Pain Pain Level: 0 Pain Location: Knee - Left Post Treatment Pain Post Treatment Pain Level: 0 Post Treatment Pain Location: Knee - Left OBJECTIVE MEASURES WITH LEVEL OF FUNCTION: TREATMENT: Therapeutic Exercise: 1: Heel slide 2 x 15 with 5 seconds, left with strap 2: Incline gastroc stretch 2 x 30 seconds, both 3: SLR 2 x 7, left 4: Step knee extension 4 x 15 seconds, left (alternate with flexion) 5: Step knee flexion 4 x 15 seconds, left (alternating with extension) 6: LAQ's 4# 3 x 10 7: Multi hip flexion with knee bent #10 2 x 15, left 8: Multihip abduction left 10# 2 x 15 9: Shuttle bilateral leg press 62# 2 x 15 (Increased resistance) 10: Shuttle bilateral calf press 62# 2 x 15 (Increased resistance) 11: Shuttle left knee flexion stretch 43# 5 x 10 second hold (Increased resistance) 12: Retro walk at cable 17.5# x 8 laps with 10 marches on rep 13: Recumbant stepper Level 3 x 10 minutes (not billed) Seat 9 Skilled Intervention: Skilled judgment was used in selection of appropriate interventions. Correct performance of therapeutic exercises was facilitated with verbal and visual cuing. Therapeutic Activity: 1: Step up 6 step 2 x 15 Skilled Intervention: Educated on proper/safe technique for activities performed today. Activity progression based on professional judgment. Billing KX Modifier : Therapist attests that services rendered are medically necessary. Therapeutic Exercise Treatment Minutes: 40 Therapeutic Activity Treatment Minutes: 5 Skilled Treatment Time Minutes (timed and untimed codes): 45 Total Session Time (minutes): 67 Session Start Time : 1045 Session Stop Time : 1152 Time spent on recumbent stepper not included in billed treatment time. Cold pack applied to L knee with patient in supine for 10 minutes at the end of the session. Cold pack time not included in billed treatment time. Dwain Kolb [facility] 12-09-2023 History of Presen t illness Narrative Episode Visit Count: 26 Therapist That Will Accept/Oversee The Plan Of Care: Laura Shaffer PT, DPT Start of Care Date: 10/02/23 Onset Date: 09/30/23 Plan of Care Certification Date: 10/02/23 Next Certification Due Date: 12/25/23 Patient Identified by Name and Date of : Yes REHABILITATION AND SPORTS THERAPY PHYSICAL THERAPY TREATMENT NOTE ASSESSMENT: Emperatriz Ghosh tolerated the session with no issues. She demonstrated improvements in carryover reporting continued painfree status and that she feels stronger. She also tolerated increased resistance on the shuttle.The patient will continue to benefit from ongoing skilled physical therapy to progress toward set goals. PLAN FOR NEXT VISIT: L TKA protocol to improve left knee flexion range of motion and strength. SUBJECTIVE: Walking in here there was no pain. I feel strong and sturdy Pain: Pain Pain Level: 0 Pain Location: Knee - Left Post Treatment Pain Post Treatment Pain Level: 0 Post Treatment Pain Location: Knee - Left OBJECTIVE MEASURES WITH LEVEL OF FUNCTION: TREATMENT: Therapeutic Exercise: 1: Heel slide 2 x 15 with 5 seconds, left with strap 2: Incline gastroc stretch 2 x 30 seconds, both 3: SLR 2 x 7, left 4: Step knee extension 4 x 15 seconds, left (alternate with flexion) 5: Step knee flexion 4 x 15 seconds, left (alternating with extension) 6: LAQ's 4# 3 x 10 7: Multi hip flexion with knee bent #10 2 x 15, left 8: Multihip abduction left 10# 2 x 15 9: Shuttle bilateral leg press 62# 2 x 15 (Increased resistance) 10: Shuttle bilateral calf press 62# 2 x 15 (Increased resistance) 11: Shuttle left knee flexion stretch 43# 5 x 10 second hold (Increased resistance) 12: Retro walk at cable 17.5# x 8 laps with 10 marches on rep 13: Recumbant stepper Level 3 x 10 minutes (not billed) Seat 9 Skilled Intervention: Skilled judgment was used in selection of appropriate interventions. Correct performance of therapeutic exercises was facilitated with verbal and visual cuing. Therapeutic Activity: 1: Step up 6 step 2 x 15 Skilled Intervention: Educated on proper/safe technique for activities performed today. Activity progression based on professional judgment. Billing KX Modifier : Therapist attests that services rendered are medically necessary. Therapeutic Exercise Treatment Minutes: 40 Therapeutic Activity Treatment Minutes: 5 Skilled Treatment Time Minutes (timed and untimed codes): 45 Total Session Time (minutes): 67 Session Start Time : 1045 Session Stop Time : 1152 Time spent on recumbent stepper not included in billed treatment time. Cold pack applied to L knee with patient in supine for 10 minutes at the end of the session. Cold pack time not included in billed treatment time. Dwain Kolb PTA documented in this encounter [facility] 12-04-2023 Note HNO ID: [id number] Author: DWAIN KOLB PTA Service: ? Author Type: Blade Aligner Type: Progress Notes Filed: 12/04/2023 12:03 Note Text: Episode Visit Count: 25 Therapist That Will Accept/Oversee The Plan Of Care: Laura Shaffer, PT, DPT Start of Care Date: 10/02/23 Onset Date: 09/30/23 Plan of Care Certification Date: 10/02/23 Next Certification Due Date: 12/25/23 Patient Identified by Name and Date of : Yes REHABILITATION AND SPORTS THERAPY PHYSICAL THERAPY TREATMENT NOTE ASSESSMENT: Emperatriz Ghosh tolerated the session with no issues. She demonstrated improvements in progression of increased reps for multihip abduction and SLR's. She also tolerated marching with resisted walking in retro. She noted marching was a challenge and reported that the increased reps for hip abduction L bothered her R le more than her L. The patient will continue to benefit from ongoing skilled physical therapy to progress toward set goals. PLAN FOR NEXT VISIT: L TKA protocol to improve left knee flexion range of motion and strength. SUBJECTIVE: Pt notes that she is painfree but when she stands from prolonged sitting, she has some discomfort but it is in both knees. Pain: Pain Pain Level: 0 Pain Location: Knee - Left Post Treatment Pain Post Treatment Pain Level: 0 Post Treatment Pain Location: Knee - Left OBJECTIVE MEASURES WITH LEVEL OF FUNCTION: No objective measure taken this date. TREATMENT: Therapeutic Exercise: 1: Heel slide 2 x 15 with 5 seconds, left with strap 2: Incline gastroc stretch 2 x 30 seconds, both 3: SLR 2 x 7, left (Increased reps) 4: Step knee extension 4 x 15 seconds, left (alternate with flexion) 5: Step knee flexion 4 x 15 seconds, left (alternating with extension) 6: LAQ's 4# 3 x 10 7: Multi hip flexion with knee bent #10 2 x 15, left 8: Multihip abduction left 10# 2 x 15 (increased reps) 9: Shuttle bilateral leg press 56# 2 x 15 10: Shuttle bilateral calf press 56# 2 x 15 11: Shuttle left knee flexion stretch 37# 5 x 10 second hold 12: Retro walk at cable 17.5# x 8 laps with 10 marches on 8th rep (added marching) 13: Recumbant stepper Level 3 x 10 minutes (not billed) Seat 9 (Utilized spirit stepper L2 today) Skilled Intervention: Skilled judgment was used in selection of appropriate interventions. Correct performance of therapeutic exercises was facilitated with verbal and visual cuing. Therapeutic Activity: 1: Step up 6 step 2 x 15 Skilled Intervention: Educated on proper/safe technique for activities performed today. Activity progression based on professional judgment. Billing KX Modifier : Therapist attests that services rendered are medically necessary. Therapeutic Exercise Treatment Minutes: 40 Therapeutic Activity Treatment Minutes: 5 Skilled Treatment Time Minutes (timed and untimed codes): 45 Total Session Time (minutes): 66 Session Start Time : 1046 Session Stop Time : 1152 Time spent on recumbent stepper not included in billed treatment time. Cold pack applied to L knee with patient in supine for 10 minutes at the end of the session. Cold pack time not included in billed treatment time. Dwain Kolb [facility] 12-04-2023 History of Presen t illness Narrative Episode Visit Count: 25 Therapist That Will Accept/Oversee The Plan Of Care: Laura Shaffer PT, DPT Start of Care Date: 10/02/23 Onset Date: 09/30/23 Plan of Care Certification Date: 10/02/23 Next Certification Due Date: 12/25/23 Patient Identified by Name and Date of : Yes REHABILITATION AND SPORTS THERAPY PHYSICAL THERAPY TREATMENT NOTE ASSESSMENT: Emperatriz Gilbertkathiemagui tolerated the session with no issues. She demonstrated improvements in progression of increased reps for multihip abduction and SLR's. She also tolerated marching with resisted walking in retro. She noted marching was a challenge and reported that the increased reps for hip abduction L bothered her R le more than her L. The patient will continue to benefit from ongoing skilled physical therapy to progress toward set goals. PLAN FOR NEXT VISIT: L TKA protocol to improve left knee flexion range of motion and strength. SUBJECTIVE: Pt notes that she is painfree but when she stands from prolonged sitting, she has some discomfort but it is in both knees. Pain: Pain Pain Level: 0 Pain Location: Knee - Left Post Treatment Pain Post Treatment Pain Level: 0 Post Treatment Pain Location: Knee - Left OBJECTIVE MEASURES WITH LEVEL OF FUNCTION: No objective measure taken this date. TREATMENT: Therapeutic Exercise: 1: Heel slide 2 x 15 with 5 seconds, left with strap 2: Incline gastroc stretch 2 x 30 seconds, both 3: SLR 2 x 7, left (Increased reps) 4: Step knee extension 4 x 15 seconds, left (alternate with flexion) 5: Step knee flexion 4 x 15 seconds, left (alternating with extension) 6: LAQ's 4# 3 x 10 7: Multi hip flexion with knee bent #10 2 x 15, left 8: Multihip abduction left 10# 2 x 15 (increased reps) 9: Shuttle bilateral leg press 56# 2 x 15 10: Shuttle bilateral calf press 56# 2 x 15 11: Shuttle left knee flexion stretch 37# 5 x 10 second hold 12: Retro walk at cable 17.5# x 8 laps with 10 marches on 8th rep (added marching) 13: Recumbant stepper Level 3 x 10 minutes (not billed) Seat 9 (Utilized spirit stepper L2 today) Skilled Intervention: Skilled judgment was used in selection of appropriate interventions. Correct performance of therapeutic exercises was facilitated with verbal and visual cuing. Therapeutic Activity: 1: Step up 6 step 2 x 15 Skilled Intervention: Educated on proper/safe technique for activities performed today. Activity progression based on professional judgment. Billing KX Modifier : Therapist attests that services rendered are medically necessary. Therapeutic Exercise Treatment Minutes: 40 Therapeutic Activity Treatment Minutes: 5 Skilled Treatment Time Minutes (timed and untimed codes): 45 Total Session Time (minutes): 66 Session Start Time : 1046 Session Stop Time : 1152 Time spent on recumbent stepper not included in billed treatment time. Cold pack applied to L knee with patient in supine for 10 minutes at the end of the session. Cold pack time not included in billed treatment time. Dwain Kolb PTA documented in this encounter [facility] 12-02-2023 Note HNO ID: [id number] Author: DWIAN KOLB PTA Service: ? Author Type: Blade Aligner Type: Progress Notes Filed: 12/02/2023 12:26 Note Text: Episode Visit Count: 24 Therapist That Will Accept/Oversee The Plan Of Care: Laura Shaffer, PT, DPT Start of Care Date: 10/02/23 Onset Date: 09/30/23 Plan of Care Certification Date: 10/02/23 Next Certification Due Date: 12/25/23 Patient Identified by Name and Date of : Yes REHABILITATION AND SPORTS THERAPY PHYSICAL THERAPY TREATMENT NOTE ASSESSMENT: Emperatriz Ghosh tolerated the session with no increased pain. She demonstrated improvements in tolerance with addition of hip abduction on the multihip. She also reports improvements of painfree status the past few days. The patient will continue to benefit from ongoing skilled physical therapy to progress toward set goals. PLAN FOR NEXT VISIT: L TKA protocol to improve left knee flexion range of motion and strength. SUBJECTIVE: Pt reports that she has been painfree in her L knee for the past few days. Pain: Pain Pain Level: 0 Pain Location: Knee - Left Post Treatment Pain Post Treatment Pain Level: 0 Post Treatment Pain Location: Knee - Left OBJECTIVE MEASURES WITH LEVEL OF FUNCTION: TREATMENT: Therapeutic Exercise: 1: Heel slide 2 x 15 with 5 seconds, left with strap 2: Incline gastroc stretch 2 x 30 seconds, both 3: SLR 2 x 6, left 4: Step knee extension 4 x 15 seconds, left (alternate with flexion) 5: Step knee flexion 4 x 15 seconds, left (alternating with extension) 6: LAQ's 4# 3 x 10 7: Multi hip flexion with knee bent #10 2 x 15, left 8: Multihip abduction left 10# 2 x 10 9: Shuttle bilateral leg press 56# 2 x 15 10: Shuttle bilateral calf press 56# 2 x 15 11: Shuttle left knee flexion stretch 37# 5 x 10 second hold 12: Retro walk at cable 17.5# x 8 laps 13: Recumbant stepper Level 3 x 10 minutes (not billed) Seat 9 Skilled Intervention: Skilled judgment was used in selection of appropriate interventions. Correct performance of therapeutic exercises was facilitated with verbal and visual cuing. Therapeutic Activity: 1: Step up 6 step 2 x 15 Skilled Intervention: Educated on proper/safe technique for activities performed today. Activity progression based on professional judgment. Billing KX Modifier : Therapist attests that services rendered are medically necessary. Therapeutic Exercise Treatment Minutes: 40 Therapeutic Activity Treatment Minutes: 5 Skilled Treatment Time Minutes (timed and untimed codes): 45 Total Session Time (minutes): 65 Session Start Time : 1047 Session Stop Time : 1152 Time spent on recumbent stepper not included in billed treatment time. Cold pack applied to L knee with patient in supine for 10 minutes at the end of the session. Cold pack time not included in billed treatment time. Dwain Kolb [facility] 12-02-2023 History of Presen t illness Narrative Episode Visit Count: 24 Therapist That Will Accept/Oversee The Plan Of Care: Laura Shaffer, PT, DPT Start of Care Date: 10/02/23 Onset Date: 09/30/23 Plan of Care Certification Date: 10/02/23 Next Certification Due Date: 12/25/23 Patient Identified by Name and Date of : Yes REHABILITATION AND SPORTS THERAPY PHYSICAL THERAPY TREATMENT NOTE ASSESSMENT: Emperatriz Ghosh tolerated the session with no increased pain. She demonstrated improvements in tolerance with addition of hip abduction on the multihip. She also reports improvements of painfree status the past few days. The patient will continue to benefit from ongoing skilled physical therapy to progress toward set goals. PLAN FOR NEXT VISIT: L TKA protocol to improve left knee flexion range of motion and strength. SUBJECTIVE: Pt reports that she has been painfree in her L knee for the past few days. Pain: Pain Pain Level: 0 Pain Location: Knee - Left Post Treatment Pain Post Treatment Pain Level: 0 Post Treatment Pain Location: Knee - Left OBJECTIVE MEASURES WITH LEVEL OF FUNCTION: TREATMENT: Therapeutic Exercise: 1: Heel slide 2 x 15 with 5 seconds, left with strap 2: Incline gastroc stretch 2 x 30 seconds, both 3: SLR 2 x 6, left 4: Step knee extension 4 x 15 seconds, left (alternate with flexion) 5: Step knee flexion 4 x 15 seconds, left (alternating with extension) 6: LAQ's 4# 3 x 10 7: Multi hip flexion with knee bent #10 2 x 15, left 8: Multihip abduction left 10# 2 x 10 9: Shuttle bilateral leg press 56# 2 x 15 10: Shuttle bilateral calf press 56# 2 x 15 11: Shuttle left knee flexion stretch 37# 5 x 10 second hold 12: Retro walk at cable 17.5# x 8 laps 13: Recumbant stepper Level 3 x 10 minutes (not billed) Seat 9 Skilled Intervention: Skilled judgment was used in selection of appropriate interventions. Correct performance of therapeutic exercises was facilitated with verbal and visual cuing. Therapeutic Activity: 1: Step up 6 step 2 x 15 Skilled Intervention: Educated on proper/safe technique for activities performed today. Activity progression based on professional judgment. Billing KX Modifier : Therapist attests that services rendered are medically necessary. Therapeutic Exercise Treatment Minutes: 40 Therapeutic Activity Treatment Minutes: 5 Skilled Treatment Time Minutes (timed and untimed codes): 45 Total Session Time (minutes): 65 Session Start Time : 1047 Session Stop Time : 1152 Time spent on recumbent stepper not included in billed treatment time. Cold pack applied to L knee with patient in supine for 10 minutes at the end of the session. Cold pack time not included in billed treatment time. Dwain Kolb PTA documented in this encounter [facility] 11-27-2023 Note HNO ID: [id number] Author: LAURA SHAFFER PT, DPT Service: ? Author Type: Physical Therapist Type: Progress Notes Filed: 11/27/2023 12:38 Note Text: Episode Visit Count: 23 Therapist That Will Accept/Oversee The Plan Of Care: Laura Shaffer PT DPFederico Start of Care Date: 10/02/23 Onset Date: 09/30/23 Plan of Care Certification Date: 10/02/23 Next Certification Due Date: 12/25/23 Patient Identified by Name and Date of : Yes REHABILITATION AND SPORTS THERAPY PHYSICAL THERAPY PROGRESS REPORT PLAN OF CARE UPDATE: Assessment: Emperatriz Ghosh demonstrates significant improvement in rising from a chair, standing, walking, and walking in the house and moderate improvement in walking in the community, stair negotiation, lifting, physical activities, and recreational activities. She has met 5/6 goals. Patient continues to present with impairments in balance, gait, and strength that interfere with walking in the community, stair negotiation, lifting, physical activities, recreational activities . Current prognosis is Excellent due to: current objective clinical presentation, good overall health status, acuteness of condition, positive past response to therapy . The patient demonstrates significant improvement in range of motion in left knee and functional mobility. The patient She will benefit from continued skilled therapy services to meet the updated goals for this plan of care as noted below. Addressed 11/27/2023 Goals for Episode of Care: created on 10/02/23 through 12/25/23 [place] in home exercise program. - Met Patient will decrease pain to 2/10 with functional activities to allow patient to improve ambulation and transfers. - Met Patient will increase active ROM of left knee to 0-115 degrees to allow pt to to improve gait mechanics / gait pattern . - Met Patient will demonstrate increase in left lower extremity strength to 4+/5 during manual muscle testing in order to improve function for prior functional tasks. - Progressing Normal gait. - Met Reciprocal stair negotiation. - Met Patient Goals: The patient's goal is to get knee functional. Planned Interventions, Frequency, and Duration: 2x/week, 4 weeks Total Number of Visits Planned: 8 Patient to be seen for Therapeutic exercise (02099), Neuromuscular re-education (74279), Manual therapy (80062), Therapeutic activities (30221), Self-mcc management (68976), Gait Training (55932) PLAN FOR NEXT VISIT: Add hip abduction strengthening. L TKA protocol to improve left knee flexion range of motion and strength. Patient sees surgeon 12/24/2023. SUBJECTIVE: The patient reports she is well. She has no pain currently in her knee. She notes her stability and function have improved. Functional Limitations: walking in the community, stair negotiation, lifting, physical activities, recreational activities Pain: Pain Pain Level: 0 Pain Location: Knee - Left Post Treatment Pain Post Treatment Pain Level: 0 PROMIS Scales T-scores: mean of general population = 50. 5 points is clinically meaningfully difference Percentiles provide an indication of how the patient's score ranks in relation to the general population. Higher percentile rankings indicate better function/quality of life. 50th percentile is the average of the general population and indicates half of respondents had a worse score. OBJECTIVE MEASURES WITH LEVEL OF FUNCTION: LE AROM L Knee Extension: 0 Degrees L Knee Flexion: 120 Degrees LE Strength L Hip Flexion (L2): 4/5 L Hip ABduction: 4/5 L Hip ADduction: 4+/5 TREATMENT: Therapeutic Exercise: 1: Heel slide 2 x 15 with 5 seconds, left with strap 2: Incline gastroc stretch 2 x 30 seconds, both 4: Step knee extension 4 x 15 seconds, left (alternate with flexion) 5: Step knee flexion 4 x 15 seconds, left (alternating with extension) 7: Multi hip flexion with knee bent #10 2 x 15, left 9: Shuttle bilateral leg press 56# 2 x 15 10: Shuttle bilateral calf press 56# 2 x 15 11: Shuttle left knee flexion stretch 37# 5 x 10 second hold 14: Spirit stepper Level 2 x 10 minutes (not billed) Seat 10 Skilled Intervention: Skilled judgment was used in selection of appropriate interventions. Correct performance of therapeutic exercises was facilitated with verbal, visual, and tactile cuing. Manual Therapy: 1: Assessed goals Skilled Intervention: Manual skills to improve joint mobility, ROM, and decrease pain. Utilized anatomy knowledge of the therapist, and assessment of patient's response to intervention. Therapeutic Activity: 1: Step up 6 step 2 x 15 Skilled Intervention: Correct performance of home program was facilitated with verbal cueing. Cold pack applied to left knee with patient in supine for 10 minutes at the end of the session. Cold pack time not included in billed treatment time. Billing KX Modifier : Therapist attests that services rendered a (more content not included)... [facility] 11-27-2023 History of Presen t illness Narrative Episode Visit Count: 23 Therapist That Will Accept/Oversee The Plan Of Care: Laura Shaffer PT, DPT Start of Care Date: 10/02/23 Onset Date: 09/30/23 Plan of Care Certification Date: 10/02/23 Next Certification Due Date: 12/25/23 Patient Identified by Name and Date of : Yes REHABILITATION AND SPORTS THERAPY PHYSICAL THERAPY PROGRESS REPORT PLAN OF CARE UPDATE: Assessment: Emperatriz Ghosh demonstrates significant improvement in rising from a chair, standing, walking, and walking in the house and moderate improvement in walking in the community, stair negotiation, lifting, physical activities, and recreational activities. She has met 5/6 goals. Patient continues to present with impairments in balance, gait, and strength that interfere with walking in the community, stair negotiation, lifting, physical activities, recreational activities . Current prognosis is Excellent due to: current objective clinical presentation, good overall health status, acuteness of condition, positive past response to therapy . The patient demonstrates significant improvement in range of motion in left knee and functional mobility. The patient She will benefit from continued skilled therapy services to meet the updated goals for this plan of care as noted below. Addressed 11/27/2023 Goals for Episode of Care: created on 10/02/23 through 12/25/23 [place] in home exercise program. - Met Patient will decrease pain to 2/10 with functional activities to allow patient to improve ambulation and transfers. - Met Patient will increase active ROM of left knee to 0-115 degrees to allow pt to to improve gait mechanics / gait pattern . - Met Patient will demonstrate increase in left lower extremity strength to 4+/5 during manual muscle testing in order to improve function for prior functional tasks. - Progressing Normal gait. - Met Reciprocal stair negotiation. - Met Patient Goals: The patient's goal is to get knee functional. Planned Interventions, Frequency, and Duration: 2x/week, 4 weeks Total Number of Visits Planned: 8 Patient to be seen for Therapeutic exercise (15482), Neuromuscular re-education (37513), Manual therapy (17426), Therapeutic activities (42825), Self-mcc management (83157), Gait Training (95336) PLAN FOR NEXT VISIT: Add hip abduction strengthening. L TKA protocol to improve left knee flexion range of motion and strength. Patient sees surgeon 12/24/2023. SUBJECTIVE: The patient reports she is well. She has no pain currently in her knee. She notes her stability and function have improved. Functional Limitations: walking in the community, stair negotiation, lifting, physical activities, recreational activities Pain: Pain Pain Level: 0 Pain Location: Knee - Left Post Treatment Pain Post Treatment Pain Level: 0 PROMIS Scales T-scores: mean of general population = 50. 5 points is clinically meaningfully difference Percentiles provide an indication of how the patient's score ranks in relation to the general population. Higher percentile rankings indicate better function/quality of life. 50th percentile is the average of the general population and indicates half of respondents had a worse score. OBJECTIVE MEASURES WITH LEVEL OF FUNCTION: LE AROM L Knee Extension: 0 Degrees L Knee Flexion: 120 Degrees LE Strength L Hip Flexion (L2): 4/5 L Hip ABduction: 4/5 L Hip ADduction: 4+/5 TREATMENT: Therapeutic Exercise: 1: Heel slide 2 x 15 with 5 seconds, left with strap 2: Incline gastroc stretch 2 x 30 seconds, both 4: Step knee extension 4 x 15 seconds, left (alternate with flexion) 5: Step knee flexion 4 x 15 seconds, left (alternating with extension) 7: Multi hip flexion with knee bent #10 2 x 15, left 9: Shuttle bilateral leg press 56# 2 x 15 10: Shuttle bilateral calf press 56# 2 x 15 11: Shuttle left knee flexion stretch 37# 5 x 10 second hold 14: Spirit stepper Level 2 x 10 minutes (not billed) Seat 10 Skilled Intervention: Skilled judgment was used in selection of appropriate interventions. Correct performance of therapeutic exercises was facilitated with verbal, visual, and tactile cuing. Manual Therapy: 1: Assessed goals Skilled Intervention: Manual skills to improve joint mobility, ROM, and decrease pain. Utilized anatomy knowledge of the therapist, and assessment of patient's response to intervention. Therapeutic Activity: 1: Step up 6 step 2 x 15 Skilled Intervention: Correct performance of home program was facilitated with verbal cueing. Cold pack applied to left knee with patient in supine for 10 minutes at the end of the session. Cold pack time not included in billed treatment time. Billing KX Modifier : Therapist attests that services rendered are medically necessary. Therapeutic Exercise Treatment Minutes: 28 Manual TherapyTreatment Minutes: 10 Therapeutic Activity Treatment Minutes: 5 Skilled Treatment Time Minutes (timed and untimed codes): 45 Total Session Time (minutes): 67 Session Start Time : 1107 Session Stop Time : 1214 Laura Shaffer PT, DPT documented in this encounter [facility] 11-25-2023 Note HNO ID: [id number] Author: DWAIN KOLB PTA Service: ? Author Type: Blade Aligner Type: Progress Notes Filed: 11/25/2023 15:29 Note Text: Episode Visit Count: 22 Therapist That Will Accept/Oversee The Plan Of Care: Laura Shaffer PT, DPT Start of Care Date: 10/02/23 Onset Date: 09/30/23 Plan of Care Certification Date: 10/02/23 Next Certification Due Date: 12/25/23 Patient Identified by Name and Date of : Yes REHABILITATION AND SPORTS THERAPY PHYSICAL THERAPY TREATMENT NOTE ASSESSMENT: Emperatriz Ghosh tolerated the session with decreased symptoms. She demonstrated improvements in progression of reps for multihip hip flexion and slight increase in reps for slr's. She reports lower pain levels lately as well. The patient will continue to benefit from ongoing skilled physical therapy to progress toward set goals. PLAN FOR NEXT VISIT: L TKA protocol to improve left knee flexion range of motion and strength. SUBJECTIVE: I'm doing pretty good. I haven't even thought about the pain today. Pain: Pain Pain Level: 2 Pain Location: Knee - Left Description: Sore Post Treatment Pain Post Treatment Pain Level: 1 Post Treatment Pain Location: Knee - Left OBJECTIVE MEASURES WITH LEVEL OF FUNCTION: TREATMENT: Therapeutic Exercise: 1: Heel slide 2 x 15 with 5 seconds, left 2: Incline gastroc stretch 2 x 30 seconds, both 3: SLR 2 x 6, left (Increased reps) 4: Step knee extension 4 x 15 seconds, left (alternate with flexion) 5: Step knee flexion 4 x 15 seconds, left (alternating with extension) 6: LAQ's 4# 3 x 10 7: Multi hip flexion with knee bent #10 2 x 15, left (Increased reps) 8: Retro walk at cable 17.5# x 8 laps 9: Shuttle bilateral leg press 56# 2 x 15 10: Shuttle bilateral calf press 56# 2 x 15 11: Shuttle left knee flexion stretch 37# 5 x 10 second hold 12: Hamstring curl green band 3 x 10 13: Recumbant stepper Level 3 x 10 minutes (not billed) Seat 9 Skilled Intervention: Skilled judgment was used in selection of appropriate interventions. Correct performance of therapeutic exercises was facilitated with verbal and visual cuing. Therapeutic Activity: 1: Step up 6 step 2 x 15 Skilled Intervention: Educated on proper/safe technique for activities performed today. Activity progression based on professional judgment. Billing KX Modifier : Therapist attests that services rendered are medically necessary. Therapeutic Exercise Treatment Minutes: 40 Therapeutic Activity Treatment Minutes: 5 Skilled Treatment Time Minutes (timed and untimed codes): 45 Total Session Time (minutes): 65 Session Start Time : 1330 Session Stop Time : 1435 Time spent on recumbent stepper not included in billed treatment time. Cold pack applied to L knee with patient in supine for 10 minutes at the end of the session. Cold pack time not included in billed treatment time. Dwain Kolb, [facility] 11-25-2023 History of Presen t illness Narrative Episode Visit Count: 22 Therapist That Will Accept/Oversee The Plan Of Care: Laura Shaffer, PT, DPT Start of Care Date: 10/02/23 Onset Date: 09/30/23 Plan of Care Certification Date: 10/02/23 Next Certification Due Date: 12/25/23 Patient Identified by Name and Date of : Yes REHABILITATION AND SPORTS THERAPY PHYSICAL THERAPY TREATMENT NOTE ASSESSMENT: Emperatriz Ghosh tolerated the session with decreased symptoms. She demonstrated improvements in progression of reps for multihip hip flexion and slight increase in reps for slr's. She reports lower pain levels lately as well. The patient will continue to benefit from ongoing skilled physical therapy to progress toward set goals. PLAN FOR NEXT VISIT: L TKA protocol to improve left knee flexion range of motion and strength. SUBJECTIVE: I'm doing pretty good. I haven't even thought about the pain today. Pain: Pain Pain Level: 2 Pain Location: Knee - Left Description: Sore Post Treatment Pain Post Treatment Pain Level: 1 Post Treatment Pain Location: Knee - Left OBJECTIVE MEASURES WITH LEVEL OF FUNCTION: TREATMENT: Therapeutic Exercise: 1: Heel slide 2 x 15 with 5 seconds, left 2: Incline gastroc stretch 2 x 30 seconds, both 3: SLR 2 x 6, left (Increased reps) 4: Step knee extension 4 x 15 seconds, left (alternate with flexion) 5: Step knee flexion 4 x 15 seconds, left (alternating with extension) 6: LAQ's 4# 3 x 10 7: Multi hip flexion with knee bent #10 2 x 15, left (Increased reps) 8: Retro walk at cable 17.5# x 8 laps 9: Shuttle bilateral leg press 56# 2 x 15 10: Shuttle bilateral calf press 56# 2 x 15 11: Shuttle left knee flexion stretch 37# 5 x 10 second hold 12: Hamstring curl green band 3 x 10 13: Recumbant stepper Level 3 x 10 minutes (not billed) Seat 9 Skilled Intervention: Skilled judgment was used in selection of appropriate interventions. Correct performance of therapeutic exercises was facilitated with verbal and visual cuing. Therapeutic Activity: 1: Step up 6 step 2 x 15 Skilled Intervention: Educated on proper/safe technique for activities performed today. Activity progression based on professional judgment. Billing KX Modifier : Therapist attests that services rendered are medically necessary. Therapeutic Exercise Treatment Minutes: 40 Therapeutic Activity Treatment Minutes: 5 Skilled Treatment Time Minutes (timed and untimed codes): 45 Total Session Time (minutes): 65 Session Start Time : 1330 Session Stop Time : 1435 Time spent on recumbent stepper not included in billed treatment time. Cold pack applied to L knee with patient in supine for 10 minutes at the end of the session. Cold pack time not included in billed treatment time. Dwain Kolb PTA documented in this encounter [facility] 11-25-2023 Miscellaneous Notes The following approved medication requests have been transmitted electronically. Requested Prescriptions Pending Prescriptions Disp Refills morphine (PF) 5 mg/mL in NaCl 0.9% 20 mL 20 mL 0 Sig: PF MORPHINE 5 MG/ML SIMPLE CONTINUOUS RATE 0.8636 mg/ day PTM 0.0799 mg every 4 hours (max 6 doses per day) Total daily dose 1.3397mg Maynor Robles PA-C [facility] request for Intrathecal pump med: Requested Prescriptions Pending Prescriptions Disp Refills morphine (PF) 5 mg/mL in NaCl 0.9% 20 mL 20 mL 0 Sig: PF MORPHINE 5 MG/ML SIMPLE CONTINUOUS RATE 0.8636 mg/ day PTM 0.0799 mg every 4 hours (max 6 doses per day) Total daily dose 1.3397mg Lydia Day RN documented in this encounter [facility] 11-21-2023 Note HNO ID: [id number] Author: MAYA GOEL PTA Service: ? Author Type: Blade Aligner Type: Progress Notes Filed: 11/21/2023 15:03 Note Text: Episode Visit Count: 21 Therapist That Will Accept/Oversee The Plan Of Care: Laura Shaffer, PT, DPT Start of Care Date: 10/02/23 Onset Date: 09/30/23 Plan of Care Certification Date: 10/02/23 Next Certification Due Date: 12/25/23 Patient Identified by Name and Date of : Yes REHABILITATION AND SPORTS THERAPY PHYSICAL THERAPY TREATMENT NOTE ASSESSMENT: Emperatriz Ghosh tolerated the session with no issues. She demonstrated difficulty with SLR this date and could only perform in sets of 5. The patient will continue to benefit from ongoing skilled physical therapy to progress toward set goals. PLAN FOR NEXT VISIT: L TKA protocol to improve left knee flexion range of motion and strength. SUBJECTIVE: Patient reported that her knee pain is not too bad this a.m. Pain: Pain Pain Level: 3 Pain Location: Knee - Left Description: Sore Post Treatment Pain Post Treatment Pain Level: 2 OBJECTIVE MEASURES WITH LEVEL OF FUNCTION: No objective measures taken this date. TREATMENT: Therapeutic Exercise: 1: Heel slide 2 x 15 with 5 seconds, left 2: Incline gastroc stretch 2 x 30 seconds, both 3: SLR 2 x 5, left 4: Step knee extension 4 x 15 seconds, left (alternate with flexion) 5: Step knee flexion 4 x 15 seconds, left (alternating with extension) 6: LAQ's 4# 3 x 10 7: Multi hip flexion with knee bent #10 2 x 10, left 8: Retro walk at cable 17.5# x 8 laps 9: Shuttle bilateral leg press 56# 2 x 15 10: Shuttle bilateral calf press 56# 2 x 15 11: Shuttle left knee flexion stretch 37# 5 x 10 second hold 12: Hamstring curl green band 3 x 10 13: Recumbant stepper Level 3 x 10 minutes (not billed) Seat 9 Skilled Intervention: Patient was educated in proper exercise technique and purpose for exercises. Skilled judgment was used in selection of appropriate interventions. Therapeutic Activity: 1: Step up 6 step 2 x 15 Skilled Intervention: Proper patient guarding to prevent falls/increase patient safety with supervision to assist patient while performing step ups Billing KX Modifier : Therapist attests that services rendered are medically necessary. Therapeutic Exercise Treatment Minutes: 40 Therapeutic Activity Treatment Minutes: 5 Skilled Treatment Time Minutes (timed and untimed codes): 45 Total Session Time (minutes): 67 Session Start Time : 1100 Session Stop Time : 1207 Time spent on recumbent stepper not included in billed treatment time. Cold pack applied to left knee with patient in supine with lengthwise pillow for 10 minutes at the end of the session. Cold pack time not included in billed treatment time. Maya Goel PTA [facility] 11-19-2023 Note HNO ID: [id number] Author: DWAIN KOLB PTA Service: ? Author Type: Blade Aligner Type: Progress Notes Filed: 11/19/2023 16:14 Note Text: Episode Visit Count: 20 Therapist That Will Accept/Oversee The Plan Of Care: Laura Shaffer, PT, DPT Start of Care Date: 10/02/23 Onset Date: 09/30/23 Plan of Care Certification Date: 10/02/23 Next Certification Due Date: 12/25/23 Patient Identified by Name and Date of : Yes REHABILITATION AND SPORTS THERAPY PHYSICAL THERAPY TREATMENT NOTE ASSESSMENT: Emperatriz Ghosh tolerated the session with decreased symptoms. She demonstrated improvements in tolerance with increased resistance for single leg on the shuttle and on the recumbent stepper. The patient will continue to benefit from ongoing skilled physical therapy to progress toward set goals. PLAN FOR NEXT VISIT: L TKA protocol to improve left knee flexion range of motion and strength. SUBJECTIVE: Both of my knees are rainy day knees today citing increased discomfort in both. Pain: Pain Pain Level: 5 Pain Location: Knee - Left Description: Aching, Dull Frequency: Standing, Walking Post Treatment Pain Post Treatment Pain Level: 2 Post Treatment Pain Location: Knee - Left OBJECTIVE MEASURES WITH LEVEL OF FUNCTION: No objective measure taken this date. TREATMENT: Therapeutic Exercise: 1: Heel slide 2 x 15 with 5 seconds, left 2: Incline gastroc stretch 2 x 30 seconds, both 3: SLR 2 x 7, left (Increased reps) 4: Step knee extension 4 x 15 seconds, left (alternate with flexion) 5: Step knee flexion 4 x 15 seconds, left (alternating with extension) 6: LAQ's 4# 3 x 10 7: Multi hip flexion with knee bent #10 2 x 10, left 8: Retro walk at cable 17# x 8 laps 9: Shuttle bilateral leg press 56# 2 x 15 10: Shuttle bilateral calf press 56# 2 x 15 11: Shuttle left knee flexion stretch 37# 5 x 10 second hold (Increased resistance) 12: Hamstring curl green band 3 x 10 13: Recumbant stepper Level 3 x 10 minutes (not billed) Seat 9 (Increased resistance) Skilled Intervention: Skilled judgment was used in selection of appropriate interventions. Correct performance of therapeutic exercises was facilitated with verbal and visual cuing. Therapeutic Activity: 1: Step up 6 step 2 x 15 Skilled Intervention: Educated on proper/safe technique for activities performed today. Activity progression based on professional judgment. Billing KX Modifier : Therapist attests that services rendered are medically necessary. Therapeutic Exercise Treatment Minutes: 40 Therapeutic Activity Treatment Minutes: 5 Skilled Treatment Time Minutes (timed and untimed codes): 45 Total Session Time (minutes): 65 Session Start Time : 1500 Session Stop Time : 1605 Time spent on recumbent stepper not included in billed treatment time. Cold pack applied to l knee with patient in supine for 10 minutes at the end of the session. Cold pack time not included in billed treatment time. Dwain Kolb [facility] 11-19-2023 History of Presen t illness Narrative Episode Visit Count: 20 Therapist That Will Accept/Oversee The Plan Of Care: Laura Shaffer PT, DPT Start of Care Date: 10/02/23 Onset Date: 09/30/23 Plan of Care Certification Date: 10/02/23 Next Certification Due Date: 12/25/23 Patient Identified by Name and Date of : Yes REHABILITATION AND SPORTS THERAPY PHYSICAL THERAPY TREATMENT NOTE ASSESSMENT: Emperatriz Ghosh tolerated the session with decreased symptoms. She demonstrated improvements in tolerance with increased resistance for single leg on the shuttle and on the recumbent stepper. The patient will continue to benefit from ongoing skilled physical therapy to progress toward set goals. PLAN FOR NEXT VISIT: L TKA protocol to improve left knee flexion range of motion and strength. SUBJECTIVE: Both of my knees are rainy day knees today citing increased discomfort in both. Pain: Pain Pain Level: 5 Pain Location: Knee - Left Description: Aching, Dull Frequency: Standing, Walking Post Treatment Pain Post Treatment Pain Level: 2 Post Treatment Pain Location: Knee - Left OBJECTIVE MEASURES WITH LEVEL OF FUNCTION: No objective measure taken this date. TREATMENT: Therapeutic Exercise: 1: Heel slide 2 x 15 with 5 seconds, left 2: Incline gastroc stretch 2 x 30 seconds, both 3: SLR 2 x 7, left (Increased reps) 4: Step knee extension 4 x 15 seconds, left (alternate with flexion) 5: Step knee flexion 4 x 15 seconds, left (alternating with extension) 6: LAQ's 4# 3 x 10 7: Multi hip flexion with knee bent #10 2 x 10, left 8: Retro walk at cable 17# x 8 laps 9: Shuttle bilateral leg press 56# 2 x 15 10: Shuttle bilateral calf press 56# 2 x 15 11: Shuttle left knee flexion stretch 37# 5 x 10 second hold (Increased resistance) 12: Hamstring curl green band 3 x 10 13: Recumbant stepper Level 3 x 10 minutes (not billed) Seat 9 (Increased resistance) Skilled Intervention: Skilled judgment was used in selection of appropriate interventions. Correct performance of therapeutic exercises was facilitated with verbal and visual cuing. Therapeutic Activity: 1: Step up 6 step 2 x 15 Skilled Intervention: Educated on proper/safe technique for activities performed today. Activity progression based on professional judgment. Billing KX Modifier : Therapist attests that services rendered are medically necessary. Therapeutic Exercise Treatment Minutes: 40 Therapeutic Activity Treatment Minutes: 5 Skilled Treatment Time Minutes (timed and untimed codes): 45 Total Session Time (minutes): 65 Session Start Time : 1500 Session Stop Time : 1605 Time spent on recumbent stepper not included in billed treatment time. Cold pack applied to l knee with patient in supine for 10 minutes at the end of the session. Cold pack time not included in billed treatment time. Dwain Kolb PTA documented in this encounter [facility] 11-19-2023 Miscellaneous Notes The following approved medication requests have been transmitted electronically. Requested Prescriptions Pending Prescriptions Disp Refills morphine (PF) 5 mg/mL in NaCl 0.9% 20 mL 20 mL 0 Sig: PF MORPHINE 5 MG/ML SIMPLE CONTINUOUS RATE 0.8636 mg/ day PTM 0.0799 mg every 4 hours (max 6 doses per day) Total daily dose 1.3397mg Maynor Robles PA-C Patient phones requesting refills as follows: Requested Prescriptions Pending Prescriptions Disp Refills morphine (PF) 5 mg/mL in NaCl 0.9% 20 mL 20 mL 0 Sig: PF MORPHINE 5 MG/ML SIMPLE CONTINUOUS RATE 0.8636 mg/ day PTM 0.0799 mg every 4 hours (max 6 doses per day) Total daily dose 1.3397mg Last UDS: Pain pump patient Opioid agreement signed 07/31/23 Summary Report Date Value Ref Range Status 07/31/2023 FINAL Final Comment: Opiate Class, MS, Ur RFX Gabapentin, MS, Ur RFX Acetaminophen, MS, Ur RFX ToxAssure Flex 23, Ur Test Result Flag Units Drug Present and Declared for Prescription Verification Morphine 383 EXPECTED ng/mg creat Potential sources of morphine include administration of codeine or morphine, use of heroin, or ingestion of poppy seeds. Gabapentin PRESENT EXPECTED Drug Present not Declared for Prescription Verification Acetaminophen PRESENT UNEXPECTED Test Result Flag Units Ref Range Creatinine 41 mg/dL >=20 Declared Medications: The flagging and interpretation on this report are based on the following declared medications. Unexpected results may arise from inaccuracies in the declared medications. Note: The testing scope of this panel includes these medications: Gabapentin Morphine For clinical consultation, please call . No results found for: UQNOTE, OPIATEPNMGT, DRUGSCRPAIN Urine Panel: No results found for: UQCANN, UQBNZL, BHM3WEE, UQAMPH, UQMAMP, UQBUPRE, UQNORBUP, UQMTHD, UQEDDP, UQTRAM, UQDTRM, UQFNTL, UQNFTL, UQCODE, UQMORP, UQDCDN, UQHCOD, UQOXYC, UQHMOR, UQOXYM, UQCREA, UQPH, UQSPGR, UQOXID, UQSPQ @FLOW([id number])@ Lab Results Component Value Date SUMM FINAL 07/31/2023 No results found for: SUMMAR Last Opioid agreement effective date: 07/31/2023 Please review and advise. Colleen Leong RN documented in this encounter [facility] 11-15-2023 Note HNO ID: [id number] Author: DWAIN KOLB PTA Service: ? Author Type: Blade Aligner Type: Progress Notes Filed: 11/15/2023 12:36 Note Text: Episode Visit Count: 19 Therapist That Will Accept/Oversee The Plan Of Care: Laura Shaffer, PT, DPT Start of Care Date: 10/02/23 Onset Date: 09/30/23 Plan of Care Certification Date: 10/02/23 Next Certification Due Date: 12/25/23 Patient Identified by Name and Date of : Yes REHABILITATION AND SPORTS THERAPY PHYSICAL THERAPY TREATMENT NOTE ASSESSMENT: Emperatriz Ghosh tolerated the session with decreased symptoms. She demonstrated improvements in progression of reps with retro resisted walking and for multihip flexion . The patient will continue to benefit from ongoing skilled physical therapy to progress toward set goals. PLAN FOR NEXT VISIT: L TKA protocol to improve left knee flexion range of motion and strength. SUBJECTIVE: Pt notes my knee is not too bad but my back has started to bother me more Pain: Pain Pain Level: 3 Pain Location: Knee - Left Description: Dull, Aching Frequency: Standing, Walking Post Treatment Pain Post Treatment Pain Level: 2 Post Treatment Pain Location: Knee - Left OBJECTIVE MEASURES WITH LEVEL OF FUNCTION: TREATMENT: Therapeutic Exercise: 1: Heel slide 2 x 15 with 5 seconds, left 2: Incline gastroc stretch 2 x 30 seconds, both 3: SLR 2 x 5, left 4: Step knee extension 4 x 15 seconds, left (alternate with flexion) 5: Step knee flexion 4 x 15 seconds, left (alternating with extension) 6: LAQ's 4# 3 x 10 7: Multi hip flexion with knee bent #10 2 x 10, left (Increased reps) 8: Retro walk at cable 17# x 8 laps (increased reps) 9: Shuttle bilateral leg press 56# 2 x 15 10: Shuttle bilateral calf press 56# 2 x 15 11: Shuttle left knee flexion stretch 31# 5 x 10 second hold 12: Hamstring curl green band 3 x 10 13: Recumbant stepper Level 2.5 x 10 minutes (not billed) Seat 9 (utilized spirit stepper today) Skilled Intervention: Skilled judgment was used in selection of appropriate interventions. Correct performance of therapeutic exercises was facilitated with verbal and visual cuing. Therapeutic Activity: 1: Step up 6 step 2 x 15 Skilled Intervention: Educated on proper/safe technique for activities performed today. Activity progression based on professional judgment. Billing KX Modifier : Therapist attests that services rendered are medically necessary. Therapeutic Exercise Treatment Minutes: 45 Therapeutic Activity Treatment Minutes: 5 Skilled Treatment Time Minutes (timed and untimed codes): 50 Total Session Time (minutes): 72 Session Start Time : 1100 Session Stop Time : 1212 Time spent on recumbent stepper not included in billed treatment time. Cold pack applied to L knee with patient in supine for 10 minutes at the end of the session. Cold pack time not included in billed treatment time. Dwain Luajoshebenezer, [facility] 11-15-2023 History of Presen t illness Narrative Episode Visit Count: 19 Therapist That Will Accept/Oversee The Plan Of Care: Laura Shaffer, PT, DPT Start of Care Date: 10/02/23 Onset Date: 09/30/23 Plan of Care Certification Date: 10/02/23 Next Certification Due Date: 12/25/23 Patient Identified by Name and Date of : Yes REHABILITATION AND SPORTS THERAPY PHYSICAL THERAPY TREATMENT NOTE ASSESSMENT: Emperatriz Ghosh tolerated the session with decreased symptoms. She demonstrated improvements in progression of reps with retro resisted walking and for multihip flexion . The patient will continue to benefit from ongoing skilled physical therapy to progress toward set goals. PLAN FOR NEXT VISIT: L TKA protocol to improve left knee flexion range of motion and strength. SUBJECTIVE: Pt notes my knee is not too bad but my back has started to bother me more Pain: Pain Pain Level: 3 Pain Location: Knee - Left Description: Dull, Aching Frequency: Standing, Walking Post Treatment Pain Post Treatment Pain Level: 2 Post Treatment Pain Location: Knee - Left OBJECTIVE MEASURES WITH LEVEL OF FUNCTION: TREATMENT: Therapeutic Exercise: 1: Heel slide 2 x 15 with 5 seconds, left 2: Incline gastroc stretch 2 x 30 seconds, both 3: SLR 2 x 5, left 4: Step knee extension 4 x 15 seconds, left (alternate with flexion) 5: Step knee flexion 4 x 15 seconds, left (alternating with extension) 6: LAQ's 4# 3 x 10 7: Multi hip flexion with knee bent #10 2 x 10, left (Increased reps) 8: Retro walk at cable 17# x 8 laps (increased reps) 9: Shuttle bilateral leg press 56# 2 x 15 10: Shuttle bilateral calf press 56# 2 x 15 11: Shuttle left knee flexion stretch 31# 5 x 10 second hold 12: Hamstring curl green band 3 x 10 13: Recumbant stepper Level 2.5 x 10 minutes (not billed) Seat 9 (utilized spirit stepper today) Skilled Intervention: Skilled judgment was used in selection of appropriate interventions. Correct performance of therapeutic exercises was facilitated with verbal and visual cuing. Therapeutic Activity: 1: Step up 6 step 2 x 15 Skilled Intervention: Educated on proper/safe technique for activities performed today. Activity progression based on professional judgment. Billing KX Modifier : Therapist attests that services rendered are medically necessary. Therapeutic Exercise Treatment Minutes: 45 Therapeutic Activity Treatment Minutes: 5 Skilled Treatment Time Minutes (timed and untimed codes): 50 Total Session Time (minutes): 72 Session Start Time : 1100 Session Stop Time : 1212 Time spent on recumbent stepper not included in billed treatment time. Cold pack applied to L knee with patient in supine for 10 minutes at the end of the session. Cold pack time not included in billed treatment time. Dwain Kolb PTA documented in this encounter [facility] 11-13-2023 Note HNO ID: [id number] Author: LAURA SHAFFER PT, DPT Service: ? Author Type: Physical Therapist Type: Progress Notes Filed: 11/13/2023 15:24 Note Text: Episode Visit Count: 18 Therapist That Will Accept/Oversee The Plan Of Care: Laura Shaffer PT DPT Start of Care Date: 10/02/23 Onset Date: 09/30/23 Plan of Care Certification Date: 10/02/23 Next Certification Due Date: 12/25/23 Patient Identified by Name and Date of : Yes REHABILITATION AND SPORTS THERAPY PHYSICAL THERAPY TREATMENT NOTE ASSESSMENT: Emperatriz Ghosh tolerated the session with expected muscle soreness. She required visual and verbal cues for exercises and demonstrates improvement in straight leg raise. The patient will continue to benefit from ongoing skilled physical therapy to continue with post-operative protocol. PLAN FOR NEXT VISIT: L TKA protocol to improve left knee flexion range of motion and strength. SUBJECTIVE: The patient c/o stiffness in bilateral knees, however overall her knee feels much better. The patient saw Scott Valero PA-C and said her knee looks great and happy with her results. Pain: Pain Pain Level: 2 Pain Location: Knee - Left Description: Aching, Dull Frequency: Standing, Walking Post Treatment Pain Post Treatment Pain Level: No Change OBJECTIVE MEASURES WITH LEVEL OF FUNCTION: No objective measurements taken this session. TREATMENT: Therapeutic Exercise: 1: Heel slide 2 x 15 with 5 seconds, left 2: Incline gastroc stretch 2 x 30 seconds, both 3: SLR 2 x 5, left 4: Step knee extension 4 x 15 seconds, left (alternate with flexion) 5: Step knee flexion 4 x 15 seconds, left (alternating with extension) 6: LAQ's 4# 3 x 10 7: Multi hip flexion with knee bent #10 2 x 7, left 8: Retro walk at cable 17# x 5 laps 9: Shuttle bilateral leg press 56# 2 x 15 10: Shuttle bilateral calf press 56# 2 x 15 11: Shuttle left knee flexion stretch 31# 5 x 10 second hold 12: Hamstring curl green band 3 x 10 (Increase resistance) 13: Recumbant stepper Level 2.5 x 10 minutes (not billed) Seat 9 Skilled Intervention: Skilled judgment was used in selection of appropriate interventions. Correct performance of therapeutic exercises was facilitated with verbal and visual cuing. Therapeutic Activity: 1: Step up 6 step 2 x 15 Skilled Intervention: Correct performance of home program was facilitated with verbal cueing. Cold pack applied to left knee with patient in supine for 10 minutes at the end of the session. Cold pack time not included in billed treatment time. Billing Therapeutic Exercise Treatment Minutes: 37 Therapeutic Activity Treatment Minutes: 5 Skilled Treatment Time Minutes (timed and untimed codes): 44 Total Session Time (minutes): 67 Session Start Time : 1416 Session Stop Time : 1523 Laura Shaffer PT, ELLIOTTT [facility] 11-13-2023 History of Presen t illness Narrative Episode Visit Count: 18 Therapist That Will Accept/Oversee The Plan Of Care: Laura Shaffer PT, DPT Start of Care Date: 10/02/23 Onset Date: 09/30/23 Plan of Care Certification Date: 10/02/23 Next Certification Due Date: 12/25/23 Patient Identified by Name and Date of : Yes REHABILITATION AND SPORTS THERAPY PHYSICAL THERAPY TREATMENT NOTE ASSESSMENT: Emperatriz Katarzyna Ghosh tolerated the session with expected muscle soreness. She required visual and verbal cues for exercises and demonstrates improvement in straight leg raise. The patient will continue to benefit from ongoing skilled physical therapy to continue with post-operative protocol. PLAN FOR NEXT VISIT: L TKA protocol to improve left knee flexion range of motion and strength. SUBJECTIVE: The patient c/o stiffness in bilateral knees, however overall her knee feels much better. The patient saw Scott Valero PA-C and said her knee looks great and happy with her results. Pain: Pain Pain Level: 2 Pain Location: Knee - Left Description: Aching, Dull Frequency: Standing, Walking Post Treatment Pain Post Treatment Pain Level: No Change OBJECTIVE MEASURES WITH LEVEL OF FUNCTION: No objective measurements taken this session. TREATMENT: Therapeutic Exercise: 1: Heel slide 2 x 15 with 5 seconds, left 2: Incline gastroc stretch 2 x 30 seconds, both 3: SLR 2 x 5, left 4: Step knee extension 4 x 15 seconds, left (alternate with flexion) 5: Step knee flexion 4 x 15 seconds, left (alternating with extension) 6: LAQ's 4# 3 x 10 7: Multi hip flexion with knee bent #10 2 x 7, left 8: Retro walk at cable 17# x 5 laps 9: Shuttle bilateral leg press 56# 2 x 15 10: Shuttle bilateral calf press 56# 2 x 15 11: Shuttle left knee flexion stretch 31# 5 x 10 second hold 12: Hamstring curl green band 3 x 10 (Increase resistance) 13: Recumbant stepper Level 2.5 x 10 minutes (not billed) Seat 9 Skilled Intervention: Skilled judgment was used in selection of appropriate interventions. Correct performance of therapeutic exercises was facilitated with verbal and visual cuing. Therapeutic Activity: 1: Step up 6 step 2 x 15 Skilled Intervention: Correct performance of home program was facilitated with verbal cueing. Cold pack applied to left knee with patient in supine for 10 minutes at the end of the session. Cold pack time not included in billed treatment time. Billing Therapeutic Exercise Treatment Minutes: 37 Therapeutic Activity Treatment Minutes: 5 Skilled Treatment Time Minutes (timed and untimed codes): 44 Total Session Time (minutes): 67 Session Start Time : 1416 Session Stop Time : 1523 Laura Shaffer PT, DPT documented in this encounter [facility] 11-11-2023 Note HNO ID: [id number] Author: LAURA SHAFFER PT, CARROLL Service: ? Author Type: Physical Therapist Type: Progress Notes Filed: 11/11/2023 12:20 Note Text: Episode Visit Count: 17 Therapist That Will Accept/Oversee The Plan Of Care: Laura Shaffer PT, DPT Start of Care Date: 10/02/23 Onset Date: 09/30/23 Plan of Care Certification Date: 10/02/23 Next Certification Due Date: 12/25/23 Patient Identified by Name and Date of : Yes REHABILITATION AND SPORTS THERAPY PHYSICAL THERAPY TREATMENT NOTE ASSESSMENT: Emperatriz Ghosh tolerated the session with no issues. She demonstrated improvements in right range of motion and strength overall. She has improved in her straight leg raise strength and is now able to lift left lower extremity on/off machines. The patient will continue to benefit from ongoing skilled physical therapy to continue with post-operative protocol. PLAN FOR NEXT VISIT: L TKA protocol to improve left knee flexion range of motion and strength. SUBJECTIVE: The patient reports she is feeling much better. She has very little pain at rest and increases minimally with knee flexion stretch. She has been keeping her leg straight which has decrease tenderness on the lateral left knee. Pain: Pain Pain Level: 2 (4/10 with knee flexion stretch) Pain Location: Knee - Left Description: Aching, Dull Frequency: Standing, Walking Post Treatment Pain Post Treatment Pain Level: 2 Post Treatment Pain Location: Knee - Left OBJECTIVE MEASURES WITH LEVEL OF FUNCTION: LE AROM L Knee Extension: 0 Degrees L Knee Flexion: 118 Degrees LE Strength L Hip Flexion (L2): 4-/5 L Hip ABduction: 4/5 L Hip ADduction: 4+/5 L Knee Extension (L3): 4+/5 L Knee Flexion: 4+/5 L Ankle Dorsiflexion (L4): 5/5 TREATMENT: Therapeutic Exercise: 1: Heel slide 2 x 15 with 5 seconds, left 2: Incline gastroc stretch 2 x 30 seconds, both 3: SLR 2 x 5, left 4: Step knee extension 4 x 15 seconds, left (alternate with flexion) 5: Step knee flexion 4 x 15 seconds, left (alternating with extension) 6: LAQ's 4# 3 x 10 7: Multi hip flexion with knee bent #10 2 x 7, left 8: TKE on multihip 40# 2 x 10 with 5 second hold 9: Shuttle bilateral leg press 56# 2 x 15 10: Shuttle bilateral calf press 56# 2 x 15 11: Shuttle left knee flexion stretch 31# 5 x 10 second hold 12: Hamstring curl pink band 2 x 15 13: Recumbant stepper Level 2 x 10 minutes (not billed) Seat 9 Skilled Intervention: Skilled judgment was used in selection of appropriate interventions. Correct performance of therapeutic exercises was facilitated with verbal and visual cuing. Manual Therapy: 1: Assessed range of motion and strength Skilled Intervention: Manual skills to improve joint mobility, ROM, and decrease pain. Utilized anatomy knowledge of the therapist, and assessment of patient's response to intervention. Therapeutic Activity: 1: Step up 6 step 2 x 15 Skilled Intervention: Correct performance of home program was facilitated with verbal cueing. Cold pack applied to left knee with patient in supine for 10 minutes at the end of the session. Cold pack time not included in billed treatment time. Billing KX Modifier : Therapist attests that services rendered are medically necessary. Therapeutic Exercise Treatment Minutes: 32 Manual TherapyTreatment Minutes: 5 Therapeutic Activity Treatment Minutes: 5 Skilled Treatment Time Minutes (timed and untimed codes): 44 Total Session Time (minutes): 66 Session Start Time : 1101 (patient in bathroom) Session Stop Time : 1207 Laura Shaffer PT, DPT [facility] 11-11-2023 History of Presen t illness Narrative Episode Visit Count: 17 Therapist That Will Accept/Oversee The Plan Of Care: Laura Shaffer PT, DPT Start of Care Date: 10/02/23 Onset Date: 09/30/23 Plan of Care Certification Date: 10/02/23 Next Certification Due Date: 12/25/23 Patient Identified by Name and Date of : Yes REHABILITATION AND SPORTS THERAPY PHYSICAL THERAPY TREATMENT NOTE ASSESSMENT: Emperatriz Ghosh tolerated the session with no issues. She demonstrated improvements in right range of motion and strength overall. She has improved in her straight leg raise strength and is now able to lift left lower extremity on/off machines. The patient will continue to benefit from ongoing skilled physical therapy to continue with post-operative protocol. PLAN FOR NEXT VISIT: L TKA protocol to improve left knee flexion range of motion and strength. SUBJECTIVE: The patient reports she is feeling much better. She has very little pain at rest and increases minimally with knee flexion stretch. She has been keeping her leg straight which has decrease tenderness on the lateral left knee. Pain: Pain Pain Level: 2 (4/10 with knee flexion stretch) Pain Location: Knee - Left Description: Aching, Dull Frequency: Standing, Walking Post Treatment Pain Post Treatment Pain Level: 2 Post Treatment Pain Location: Knee - Left OBJECTIVE MEASURES WITH LEVEL OF FUNCTION: LE AROM L Knee Extension: 0 Degrees L Knee Flexion: 118 Degrees LE Strength L Hip Flexion (L2): 4-/5 L Hip ABduction: 4/5 L Hip ADduction: 4+/5 L Knee Extension (L3): 4+/5 L Knee Flexion: 4+/5 L Ankle Dorsiflexion (L4): 5/5 TREATMENT: Therapeutic Exercise: 1: Heel slide 2 x 15 with 5 seconds, left 2: Incline gastroc stretch 2 x 30 seconds, both 3: SLR 2 x 5, left 4: Step knee extension 4 x 15 seconds, left (alternate with flexion) 5: Step knee flexion 4 x 15 seconds, left (alternating with extension) 6: LAQ's 4# 3 x 10 7: Multi hip flexion with knee bent #10 2 x 7, left 8: TKE on multihip 40# 2 x 10 with 5 second hold 9: Shuttle bilateral leg press 56# 2 x 15 10: Shuttle bilateral calf press 56# 2 x 15 11: Shuttle left knee flexion stretch 31# 5 x 10 second hold 12: Hamstring curl pink band 2 x 15 13: Recumbant stepper Level 2 x 10 minutes (not billed) Seat 9 Skilled Intervention: Skilled judgment was used in selection of appropriate interventions. Correct performance of therapeutic exercises was facilitated with verbal and visual cuing. Manual Therapy: 1: Assessed range of motion and strength Skilled Intervention: Manual skills to improve joint mobility, ROM, and decrease pain. Utilized anatomy knowledge of the therapist, and assessment of patient's response to intervention. Therapeutic Activity: 1: Step up 6 step 2 x 15 Skilled Intervention: Correct performance of home program was facilitated with verbal cueing. Cold pack applied to left knee with patient in supine for 10 minutes at the end of the session. Cold pack time not included in billed treatment time. Billing KX Modifier : Therapist attests that services rendered are medically necessary. Therapeutic Exercise Treatment Minutes: 32 Manual TherapyTreatment Minutes: 5 Therapeutic Activity Treatment Minutes: 5 Skilled Treatment Time Minutes (timed and untimed codes): 44 Total Session Time (minutes): 66 Session Start Time : 1101 (patient in bathroom) Session Stop Time : 1207 Laura Shaffer PT DPFederico documented in this encounter [facility] 11-06-2023 Miscellaneous Notes Addended by: LAURA SHAFFER on: 11/06/2023 01:29 PM Modules accepted: Orders documented in this encounter [facility] 11-06-2023 Note HNO ID: [id number] Author: LAURA SHAFFER PT, DPT Service: ? Author Type: Physical Therapist Type: Progress Notes Filed: 11/06/2023 12:19 Note Text: Episode Visit Count: 16 Therapist That Will Accept/Oversee The Plan Of Care: Laura Shaffer PT, DPT Start of Care Date: 10/02/23 Onset Date: 09/30/23 Plan of Care Certification Date: 10/02/23 Next Certification Due Date: 12/25/23 Patient Identified by Name and Date of : Yes REHABILITATION AND SPORTS THERAPY PHYSICAL THERAPY TREATMENT NOTE ASSESSMENT: Emperatriz Ghosh tolerated the session with decreased symptoms. She demonstrates increase pain in the lateral aspect of her left knee with tibial ER and subtalar pronation The patient will continue to benefit from ongoing skilled physical therapy to continue with post-operative protocol. PLAN FOR NEXT VISIT: L TKA protocol to improve left knee flexion range of motion and strength. SUBJECTIVE: The patient reports when she steps occassionally she gets a sharp pain on the lateral aspect of her left knee. Pain: Pain Pain Level: 5 Pain Location: Knee - Left Description: Sharp Frequency: Standing, Walking Post Treatment Pain Post Treatment Pain Level: 4 Post Treatment Pain Location: Knee - Left OBJECTIVE MEASURES WITH LEVEL OF FUNCTION: No objective measurements taken this session. TREATMENT: Therapeutic Exercise: 1: Heel slide 2 x 15 with 5 seconds, left 2: Incline gastroc stretch 2 x 30 seconds, both 3: Step tap on 2nd 6 step 2 x 15, left 4: Step knee extension 4 x 15 seconds, left (alternate with flexion) 5: Step knee flexion 4 x 15 seconds, left (alternating with extension) 6: LAQ's 3# 2 x 15 7: Multi hip flexion with knee bent #10 2 x 5, left 9: Shuttle bilateral leg press 56# 2 x 15 10: Shuttle bilateral calf press 56# 2 x 15 12: Hamstring curl pink band 2 x 15 13: Recumbant stepper Level 2 x 10 minutes (not billed) Skilled Intervention: Skilled judgment was used in selection of appropriate interventions. Correct performance of therapeutic exercises was facilitated with verbal, visual, and tactile cuing. Therapeutic Activity: 1: Step up 6 step 2 x 15 Skilled Intervention: Correct performance of home program was facilitated with verbal cueing. Manual Therapy ([id number]): 1:1 time: 5 minutes. Assessed lateral aspect of left knee Cold pack applied to left knee with patient in supine for 10 minutes at the end of the session. Cold pack time not included in billed treatment time. Billing KX Modifier : Therapist attests that services rendered are medically necessary. Therapeutic Exercise Treatment Minutes: 31 Manual TherapyTreatment Minutes: 5 Therapeutic Activity Treatment Minutes: 5 Skilled Treatment Time Minutes (timed and untimed codes): 43 Total Session Time (minutes): 71 Session Start Time : 1104 Session Stop Time : 1215 Laura Shaffer PT, DPT [facility] 11-06-2023 History of Presen t illness Narrative Episode Visit Count: 16 Therapist That Will Accept/Oversee The Plan Of Care: Laura Shaffer PT, DPT Start of Care Date: 10/02/23 Onset Date: 09/30/23 Plan of Care Certification Date: 10/02/23 Next Certification Due Date: 12/25/23 Patient Identified by Name and Date of : Yes REHABILITATION AND SPORTS THERAPY PHYSICAL THERAPY TREATMENT NOTE ASSESSMENT: Emperatriz Ghosh tolerated the session with decreased symptoms. She demonstrates increase pain in the lateral aspect of her left knee with tibial ER and subtalar pronation The patient will continue to benefit from ongoing skilled physical therapy to continue with post-operative protocol. PLAN FOR NEXT VISIT: L TKA protocol to improve left knee flexion range of motion and strength. SUBJECTIVE: The patient reports when she steps occassionally she gets a sharp pain on the lateral aspect of her left knee. Pain: Pain Pain Level: 5 Pain Location: Knee - Left Description: Sharp Frequency: Standing, Walking Post Treatment Pain Post Treatment Pain Level: 4 Post Treatment Pain Location: Knee - Left OBJECTIVE MEASURES WITH LEVEL OF FUNCTION: No objective measurements taken this session. TREATMENT: Therapeutic Exercise: 1: Heel slide 2 x 15 with 5 seconds, left 2: Incline gastroc stretch 2 x 30 seconds, both 3: Step tap on 2nd 6 step 2 x 15, left 4: Step knee extension 4 x 15 seconds, left (alternate with flexion) 5: Step knee flexion 4 x 15 seconds, left (alternating with extension) 6: LAQ's 3# 2 x 15 7: Multi hip flexion with knee bent #10 2 x 5, left 9: Shuttle bilateral leg press 56# 2 x 15 10: Shuttle bilateral calf press 56# 2 x 15 12: Hamstring curl pink band 2 x 15 13: Recumbant stepper Level 2 x 10 minutes (not billed) Skilled Intervention: Skilled judgment was used in selection of appropriate interventions. Correct performance of therapeutic exercises was facilitated with verbal, visual, and tactile cuing. Therapeutic Activity: 1: Step up 6 step 2 x 15 Skilled Intervention: Correct performance of home program was facilitated with verbal cueing. Manual Therapy ([id number]): 1:1 time: 5 minutes. Assessed lateral aspect of left knee Cold pack applied to left knee with patient in supine for 10 minutes at the end of the session. Cold pack time not included in billed treatment time. Billing KX Modifier : Therapist attests that services rendered are medically necessary. Therapeutic Exercise Treatment Minutes: 31 Manual TherapyTreatment Minutes: 5 Therapeutic Activity Treatment Minutes: 5 Skilled Treatment Time Minutes (timed and untimed codes): 43 Total Session Time (minutes): 71 Session Start Time : 1104 Session Stop Time : 1215 Laura Shaffer PT, DPT documented in this encounter [facility] 11-04-2023 Note HNO ID: [id number] Author: LAURA SHAFFER PT, DPT Service: ? Author Type: Physical Therapist Type: Progress Notes Filed: 11/04/2023 12:19 Note Text: Episode Visit Count: 15 Therapist That Will Accept/Oversee The Plan Of Care: Laura Shaffer PT, DPT Start of Care Date: 10/02/23 Onset Date: 09/30/23 Plan of Care Certification Date: 10/02/23 Next Certification Due Date: 12/25/23 Patient Identified by Name and Date of : Yes REHABILITATION AND SPORTS THERAPY PHYSICAL THERAPY TREATMENT NOTE ASSESSMENT: Emperatriz Ghosh tolerated the session with decreased symptoms. She demonstrated improvement in shuttle with increased weight. She requires verbal cues to improve form. The patient will continue to benefit from ongoing skilled physical therapy to continue with post-operative protocol. PLAN FOR NEXT VISIT: L TKA protocol to improve left knee flexion range of motion and strength. SUBJECTIVE: The patient is c/o of lateral left leg pain. She believes it is from the ITB stretch. PT advised patient to not over stretch that area. Pain: Pain Pain Level: 5 Pain Location: Knee - Left Description: Sharp Frequency: Standing, Walking Post Treatment Pain Post Treatment Pain Level: Better OBJECTIVE MEASURES WITH LEVEL OF FUNCTION: No objective measurements taken this session. TREATMENT: Therapeutic Exercise: 1: Heel slide 2 x 15 with 5 seconds, left 2: Incline gsstroc stretch 2 x 30 seconds, both 3: Step tap on 2nd 6 step 2 x 10, left 4: Step knee extension 4 x 15 seconds, left (alternate with flexion) 5: Step knee flexion 4 x 15 seconds, left (alternating with extension) 6: LAQ's 3# 2 x 15 7: Multi hip flexion with knee bent #10 2 x 5, left 8: TKE on multihip 40# 2 x 10 with 5 second hold 9: Shuttle bilateral leg press 56# 3 x 10 (Increased weight) 10: Shuttle bilateral calf press 56# 3 x 10 (increased weight) 11: Shuttle left knee flexion stretch 31# 5 x 10 second hold 12: Hamstring curl pink band 2 x 15 (Increase resistance) 13: Recumbant stepper Level 2 x 10 minutes (not billed) Skilled Intervention: Skilled judgment was used in selection of appropriate interventions. Correct performance of therapeutic exercises was facilitated with verbal and visual cuing. Therapeutic Activity: 1: Step up 6 step 2 x 15 2: Reciprocal stairclimbing 4/6 steps x 4 laps Skilled Intervention: Correct performance of home program was facilitated with verbal cueing. Cold pack applied to left knee with patient in 10 for supine minutes at the end of the session. Cold pack time not included in billed treatment time. Billing KX Modifier : Therapist attests that services rendered are medically necessary. Therapeutic Exercise Treatment Minutes: 32 Therapeutic Activity Treatment Minutes: 10 Skilled Treatment Time Minutes (timed and untimed codes): 44 Total Session Time (minutes): 70 Session Start Time : 1101 Session Stop Time : 1211 Laura Shaffer PT, DPT [facility] 11-04-2023 History of Presen t illness Narrative Episode Visit Count: 15 Therapist That Will Accept/Oversee The Plan Of Care: Laura Shaffer PT, DPT Start of Care Date: 10/02/23 Onset Date: 09/30/23 Plan of Care Certification Date: 10/02/23 Next Certification Due Date: 12/25/23 Patient Identified by Name and Date of : Yes REHABILITATION AND SPORTS THERAPY PHYSICAL THERAPY TREATMENT NOTE ASSESSMENT: Emperatriz Ghosh tolerated the session with decreased symptoms. She demonstrated improvement in shuttle with increased weight. She requires verbal cues to improve form. The patient will continue to benefit from ongoing skilled physical therapy to continue with post-operative protocol. PLAN FOR NEXT VISIT: L TKA protocol to improve left knee flexion range of motion and strength. SUBJECTIVE: The patient is c/o of lateral left leg pain. She believes it is from the ITB stretch. PT advised patient to not over stretch that area. Pain: Pain Pain Level: 5 Pain Location: Knee - Left Description: Sharp Frequency: Standing, Walking Post Treatment Pain Post Treatment Pain Level: Better OBJECTIVE MEASURES WITH LEVEL OF FUNCTION: No objective measurements taken this session. TREATMENT: Therapeutic Exercise: 1: Heel slide 2 x 15 with 5 seconds, left 2: Incline gsstroc stretch 2 x 30 seconds, both 3: Step tap on 2nd 6 step 2 x 10, left 4: Step knee extension 4 x 15 seconds, left (alternate with flexion) 5: Step knee flexion 4 x 15 seconds, left (alternating with extension) 6: LAQ's 3# 2 x 15 7: Multi hip flexion with knee bent #10 2 x 5, left 8: TKE on multihip 40# 2 x 10 with 5 second hold 9: Shuttle bilateral leg press 56# 3 x 10 (Increased weight) 10: Shuttle bilateral calf press 56# 3 x 10 (increased weight) 11: Shuttle left knee flexion stretch 31# 5 x 10 second hold 12: Hamstring curl pink band 2 x 15 (Increase resistance) 13: Recumbant stepper Level 2 x 10 minutes (not billed) Skilled Intervention: Skilled judgment was used in selection of appropriate interventions. Correct performance of therapeutic exercises was facilitated with verbal and visual cuing. Therapeutic Activity: 1: Step up 6 step 2 x 15 2: Reciprocal stairclimbing 4/6 steps x 4 laps Skilled Intervention: Correct performance of home program was facilitated with verbal cueing. Cold pack applied to left knee with patient in 10 for supine minutes at the end of the session. Cold pack time not included in billed treatment time. Billing KX Modifier : Therapist attests that services rendered are medically necessary. Therapeutic Exercise Treatment Minutes: 32 Therapeutic Activity Treatment Minutes: 10 Skilled Treatment Time Minutes (timed and untimed codes): 44 Total Session Time (minutes): 70 Session Start Time : 1101 Session Stop Time : 1211 Laura Shaffer PT, DPT documented in this encounter [facility] 11-01-2023 Note HNO ID: [id number] Author: DWAIN KOLB PTA Service: ? Author Type: Blade Aligner Type: Progress Notes Filed: 11/01/2023 12:32 Note Text: Episode Visit Count: 14 Therapist That Will Accept/Oversee The Plan Of Care: Laura Shaffer PT, DPT Start of Care Date: 10/02/23 Onset Date: 09/30/23 Plan of Care Certification Date: 10/02/23 Next Certification Due Date: 12/25/23 Patient Identified by Name and Date of : Yes REHABILITATION AND SPORTS THERAPY PHYSICAL THERAPY TREATMENT NOTE ASSESSMENT: Emperatriz Ghosh tolerated the session with decreased symptoms. She demonstrated ability to tolerate all of the ex's, despite reports of increased pain initially. We modified the session and she performed the pre's without resistance. The patient will continue to benefit from ongoing skilled physical therapy to progress toward set goals. PLAN FOR NEXT VISIT: L TKA protocol to improve left knee flexion range of motion and strength. SUBJECTIVE: Pt notes that she is having increased pain in her L knee today, mostly with weightbearing and movement, but it is less at rest. Pain: Pain Pain Level: 8 (6/10 at rest) Pain Location: Knee - Left Description: Sharp Frequency: Standing, Walking Post Treatment Pain Post Treatment Pain Level: 5 Post Treatment Pain Location: Knee - Left OBJECTIVE MEASURES WITH LEVEL OF FUNCTION: TREATMENT: Therapeutic Exercise: 1: Heel slide 2 x 15 with 5 seconds, left 2: SAQ 2 x 15 reps 3# (Performed without resistance today) 3: Bent knee SLR with assist 2 x 10 4: Step knee extension 4 x 15 seconds, left 5: Step knee flexion 4 x 15 seconds, left 6: LAQ's 3# 2 x 15 (Performed without resistance today) 7: Standing SLR with ue support 2 x 15 1# (No resistance today) 8: TKE on multihip 40# 2 x 10 with 2 second hold 9: Shuttle bilateral leg press 50# 2 x 15 10: Shuttle bilateral calf press 50# 2 x 15 11: Shuttle left knee flexion stretch 31# 5 x 10 second hold 12: Hamstring curl orange band 2 x 15 13: Spirit stepper manual L2 x 10minutes ( Not billed) Skilled Intervention: Skilled judgment was used in selection of appropriate interventions. Correct performance of therapeutic exercises was facilitated with verbal and visual cuing. Therapeutic Activity: 1: Step up 6 step 2 x 15 2: Reciprocal stairclimbing 4/6 steps x 4 laps Skilled Intervention: Educated on proper/safe technique for activities performed today. Activity progression based on professional judgment. Billing KX Modifier : Therapist attests that services rendered are medically necessary. Therapeutic Exercise Treatment Minutes: 40 Therapeutic Activity Treatment Minutes: 10 Skilled Treatment Time Minutes (timed and untimed codes): 50 Total Session Time (minutes): 69 Session Start Time : 1103 Session Stop Time : 1212 Cold pack applied to L knee with patient in supine for 10 minutes at the end of the session. Cold pack time not included in billed treatment time. Time spent on recumbent stepper not included in billed treatment time. Dwain Kolb, [facility] 11-01-2023 History of Presen t illness Narrative Episode Visit Count: 14 Therapist That Will Accept/Oversee The Plan Of Care: Laura Shaffer, PT, DPT Start of Care Date: 10/02/23 Onset Date: 09/30/23 Plan of Care Certification Date: 10/02/23 Next Certification Due Date: 12/25/23 Patient Identified by Name and Date of : Yes REHABILITATION AND SPORTS THERAPY PHYSICAL THERAPY TREATMENT NOTE ASSESSMENT: Emperatriz Ghosh tolerated the session with decreased symptoms. She demonstrated ability to tolerate all of the ex's, despite reports of increased pain initially. We modified the session and she performed the pre's without resistance. The patient will continue to benefit from ongoing skilled physical therapy to progress toward set goals. PLAN FOR NEXT VISIT: L TKA protocol to improve left knee flexion range of motion and strength. SUBJECTIVE: Pt notes that she is having increased pain in her L knee today, mostly with weightbearing and movement, but it is less at rest. Pain: Pain Pain Level: 8 (6/10 at rest) Pain Location: Knee - Left Description: Sharp Frequency: Standing, Walking Post Treatment Pain Post Treatment Pain Level: 5 Post Treatment Pain Location: Knee - Left OBJECTIVE MEASURES WITH LEVEL OF FUNCTION: TREATMENT: Therapeutic Exercise: 1: Heel slide 2 x 15 with 5 seconds, left 2: SAQ 2 x 15 reps 3# (Performed without resistance today) 3: Bent knee SLR with assist 2 x 10 4: Step knee extension 4 x 15 seconds, left 5: Step knee flexion 4 x 15 seconds, left 6: LAQ's 3# 2 x 15 (Performed without resistance today) 7: Standing SLR with ue support 2 x 15 1# (No resistance today) 8: TKE on multihip 40# 2 x 10 with 2 second hold 9: Shuttle bilateral leg press 50# 2 x 15 10: Shuttle bilateral calf press 50# 2 x 15 11: Shuttle left knee flexion stretch 31# 5 x 10 second hold 12: Hamstring curl orange band 2 x 15 13: Spirit stepper manual L2 x 10minutes ( Not billed) Skilled Intervention: Skilled judgment was used in selection of appropriate interventions. Correct performance of therapeutic exercises was facilitated with verbal and visual cuing. Therapeutic Activity: 1: Step up 6 step 2 x 15 2: Reciprocal stairclimbing 4/6 steps x 4 laps Skilled Intervention: Educated on proper/safe technique for activities performed today. Activity progression based on professional judgment. Billing KX Modifier : Therapist attests that services rendered are medically necessary. Therapeutic Exercise Treatment Minutes: 40 Therapeutic Activity Treatment Minutes: 10 Skilled Treatment Time Minutes (timed and untimed codes): 50 Total Session Time (minutes): 69 Session Start Time : 1103 Session Stop Time : 1212 Cold pack applied to L knee with patient in supine for 10 minutes at the end of the session. Cold pack time not included in billed treatment time. Time spent on recumbent stepper not included in billed treatment time. Dwain Kolb PTA documented in this encounter [facility] 10-30-2023 Note HNO ID: [id number] Author: LAURA SHAFFER PT, DPT Service: ? Author Type: Physical Therapist Type: Progress Notes Filed: 11/04/2023 12:21 Note Text: Episode Visit Count: 13 Therapist That Will Accept/Oversee The Plan Of Care: Laura Shaffer PT, DPT Start of Care Date: 10/02/23 Onset Date: 09/30/23 Plan of Care Certification Date: 10/02/23 Next Certification Due Date: 12/25/23 Patient Identified by Name and Date of : Yes REHABILITATION AND SPORTS THERAPY PHYSICAL THERAPY PROGRESS REPORT PLAN OF CARE UPDATE: Assessment: Emperatriz Ghosh demonstrates significant improvement in sitting and rising from a chair , moderate improvement in standing, walking, and walking in the house, lifting, physical activities, and recreational activities, and minimal improvement in walking in the community. She has met 2/6 goals and progressed towards the remaining goals. Patient continues to present with impairments in ADL's, gait, range of motion, strength, and symptom management that interfere with rising from a chair, standing, walking, walking in the house, walking in the community, stair negotiation, lifting, physical activities, recreational activities . Current prognosis is Excellent due to: current objective clinical presentation, good overall health status, acuteness of condition, positive past response to therapy . The patient was improved her range of motion, strength, and stair negotiation since last session. She will benefit from continued skilled therapy services to meet the updated goals for this plan of care as noted below. Addressed 10/30/2023 Goals for Episode of Care: created on 10/02/23 through 12/25/23 [place] in home exercise program. - Met Patient will decrease pain to 2/10 with functional activities to allow patient to improve ambulation and transfers. - Progressing Patient will increase active ROM of left knee to 0-115 degrees to allow pt to to improve gait mechanics / gait pattern . - Progressing Patient will demonstrate increase in left lower extremity strength to 4+/5 during manual muscle testing in order to improve function for prior functional tasks. - Progressing Normal gait. - Progressing Reciprocal stair negotiation. - Met Patient Goals: The patient's goal is to get knee functional. Planned Interventions, Frequency, and Duration: 3x/week, 8 weeks Total Number of Visits Planned: 18 Patient to be seen for Therapeutic exercise (73204), Neuromuscular re-education (98520), Manual therapy (52830), Therapeutic activities (87745), Self-mcc management (88127), Gait Training (42897) PLAN FOR NEXT VISIT: * Add stepper back into next session. L TKA protocol to improve left knee flexion range of motion and strength. SUBJECTIVE: The patient reports she has been compliant with HEP. She walked about [place] the other which was difficult. She sees the doctor on 11/12/2023. Functional Limitations: rising from a chair, standing, walking, walking in the house, walking in the community, stair negotiation, lifting, physical activities, recreational activities Pain: Pain Pain Level: 5 Pain Location: Knee - Left Description: Sore Frequency: With movement PROMIS Scales T-scores: mean of general population = 50. 5 points is clinically meaningfully difference Percentiles provide an indication of how the patient's score ranks in relation to the general population. Higher percentile rankings indicate better function/quality of life. 50th percentile is the average of the general population and indicates half of respondents had a worse score. OBJECTIVE MEASURES WITH LEVEL OF FUNCTION: LE AROM L Knee Extension: 0 Degrees L Knee Flexion: 112 Degrees LE Strength L Hip Flexion (L2): 4-/5 L Hip ABduction: 4-/5 L Hip ADduction: 4/5 L Knee Extension (L3): 4/5 L Knee Flexion: 4+/5 L Ankle Dorsiflexion (L4): 5/5 L Ankle Plantar Flexion: 4+/5 TREATMENT: Therapeutic Exercise: 1: Heel slide 2 x 15 with 5 seconds, left 4: Step knee extension 4 x 10 seconds, left 5: Step knee flexion 4 x 15 seconds, left 6: LAQ's 3# 2 x 15 7: Standing SLR with ue support 2 x 15 1# 8: TKE on multihip 40# 2 x 10 with 2 second hold 9: Shuttle bilateral leg press 50# 2 x 15 10: Shuttle bilateral calf press 50# 2 x 15 11: Shuttle left knee flexion stretch 31# 5 x 10 second hold Skilled Intervention: Skilled judgment was used in selection of appropriate interventions. Correct performance of therapeutic exercises was facilitated with verbal and visual cuing. Manual Therapy: 1: Assessed goals Skilled Intervention: Manual skills to improve joint mobility, ROM, and decrease pain. Utilized anatomy knowledge of the therapist, and assessment of patient's response to intervention. Therapeutic Activity: 1: Step up 6 step 2 x 15 2: Reciprocal stairclimbing 4/6 steps x 4 laps Skilled Intervention: Correct performance of home program was (more content not included)... [facility] 10-30-2023 History of Presen t illness Narrative Episode Visit Count: 13 Therapist That Will Accept/Oversee The Plan Of Care: Laura Shaffer PT, DPT Start of Care Date: 10/02/23 Onset Date: 09/30/23 Plan of Care Certification Date: 10/02/23 Next Certification Due Date: 12/25/23 Patient Identified by Name and Date of : Yes REHABILITATION AND SPORTS THERAPY PHYSICAL THERAPY PROGRESS REPORT PLAN OF CARE UPDATE: Assessment: Emperatriz Ghosh demonstrates significant improvement in sitting and rising from a chair , moderate improvement in standing, walking, and walking in the house, lifting, physical activities, and recreational activities, and minimal improvement in walking in the community. She has met 2/6 goals and progressed towards the remaining goals. Patient continues to present with impairments in ADL's, gait, range of motion, strength, and symptom management that interfere with rising from a chair, standing, walking, walking in the house, walking in the community, stair negotiation, lifting, physical activities, recreational activities . Current prognosis is Excellent due to: current objective clinical presentation, good overall health status, acuteness of condition, positive past response to therapy . The patient was improved her range of motion, strength, and stair negotiation since last session. She will benefit from continued skilled therapy services to meet the updated goals for this plan of care as noted below. Addressed 10/30/2023 Goals for Episode of Care: created on 10/02/23 through 12/25/23 [place] in home exercise program. - Met Patient will decrease pain to 2/10 with functional activities to allow patient to improve ambulation and transfers. - Progressing Patient will increase active ROM of left knee to 0-115 degrees to allow pt to to improve gait mechanics / gait pattern . - Progressing Patient will demonstrate increase in left lower extremity strength to 4+/5 during manual muscle testing in order to improve function for prior functional tasks. - Progressing Normal gait. - Progressing Reciprocal stair negotiation. - Met Patient Goals: The patient's goal is to get knee functional. Planned Interventions, Frequency, and Duration: 3x/week, 8 weeks Total Number of Visits Planned: 18 Patient to be seen for Therapeutic exercise (34168), Neuromuscular re-education (36027), Manual therapy (66909), Therapeutic activities (41069), Self-mcc management (31905), Gait Training ([id number]) PLAN FOR NEXT VISIT: * Add stepper back into next session. L TKA protocol to improve left knee flexion range of motion and strength. SUBJECTIVE: The patient reports she has been compliant with HEP. She walked about [place] the other which was difficult. Functional Limitations: rising from a chair, standing, walking, walking in the house, walking in the community, stair negotiation, lifting, physical activities, recreational activities Pain: Pain Pain Level: 5 Pain Location: Knee - Left Description: Sore Frequency: With movement PROMIS Scales T-scores: mean of general population = 50. 5 points is clinically meaningfully difference Percentiles provide an indication of how the patient's score ranks in relation to the general population. Higher percentile rankings indicate better function/quality of life. 50th percentile is the average of the general population and indicates half of respondents had a worse score. OBJECTIVE MEASURES WITH LEVEL OF FUNCTION: LE AROM L Knee Extension: 0 Degrees L Knee Flexion: 112 Degrees LE Strength L Hip Flexion (L2): 4-/5 L Hip ABduction: 4-/5 L Hip ADduction: 4/5 L Knee Extension (L3): 4/5 L Knee Flexion: 4+/5 L Ankle Dorsiflexion (L4): 5/5 L Ankle Plantar Flexion: 4+/5 TREATMENT: Therapeutic Exercise: 1: Heel slide 2 x 15 with 5 seconds, left 4: Step knee extension 4 x 10 seconds, left 5: Step knee flexion 4 x 15 seconds, left 6: LAQ's 3# 2 x 15 7: Standing SLR with ue support 2 x 15 1# 8: TKE on multihip 40# 2 x 10 with 2 second hold 9: Shuttle bilateral leg press 50# 2 x 15 10: Shuttle bilateral calf press 50# 2 x 15 11: Shuttle left knee flexion stretch 31# 5 x 10 second hold Skilled Intervention: Skilled judgment was used in selection of appropriate interventions. Correct performance of therapeutic exercises was facilitated with verbal and visual cuing. Manual Therapy: 1: Assessed goals Skilled Intervention: Manual skills to improve joint mobility, ROM, and decrease pain. Utilized anatomy knowledge of the therapist, and assessment of patient's response to intervention. Therapeutic Activity: 1: Step up 6 step 2 x 15 2: Reciprocal stairclimbing 4/6 steps x 4 laps Skilled Intervention: Correct performance of home program was facilitated with verbal cueing. Billing Therapeutic Exercise Treatment Minutes: 26 Manual TherapyTreatment Minutes: 8 Therapeutic Activity Treatment Minutes: 10 Skilled Treatment Time Minutes (timed and untimed codes): 44 Total Session Time (minutes): 44 Session Start Time : 1103 Session Stop Time : 1147 Cold pack applied to left knee with patient in supine for 15 minutes at the end of the session. Cold pack time not included in billed treatment time. Laura Shaffer PT, DPT documented in this encounter [facility] 10-28-2023 Note HNO ID: [id number] Author: DWAIN KOLB PTA Service: ? Author Type: Blade Aligner Type: Progress Notes Filed: 10/28/2023 12:05 Note Text: Episode Visit Count: 12 Therapist That Will Accept/Oversee The Plan Of Care: Laura Shaffer PT, DPT Start of Care Date: 10/02/23 Onset Date: 09/30/23 Plan of Care Certification Date: 10/02/23 Next Certification Due Date: 12/25/23 Patient Identified by Name and Date of : Yes REHABILITATION AND SPORTS THERAPY PHYSICAL THERAPY TREATMENT NOTE ASSESSMENT: Emperatriz Ghosh tolerated the session with expected muscle soreness and no increased pain. She demonstrated improvements in progression of strength and tolerated increased resistance and reps for several of the activities today and she also is reporting a steady decline in her pain levels. She demonstrated increased AROM for flexion at 112 degrees.The patient will continue to benefit from ongoing skilled physical therapy to progress toward set goals. PLAN FOR NEXT VISIT: L TKA protocol to improve left knee flexion range of motion and strength. Patient to use SC in therapy session and at home.. SUBJECTIVE: Pt notes that she still has occasional exacerbations of pain in her knee but her pain seems lower at this time. She has been doing the new stretch and feels that it is helpful. Pain: Pain Pain Level: 6 Pain Location: Knee - Left Description: Sore Frequency: With movement Post Treatment Pain Post Treatment Pain Level: 5 Post Treatment Pain Location: Knee - Left OBJECTIVE MEASURES WITH LEVEL OF FUNCTION: LE AROM L Knee Extension: 0 Degrees L Knee Flexion: 112 Degrees TREATMENT: Therapeutic Exercise: 1: Heel slide 2 x 15 with 5 seconds, left 2: SAQ 2 x 15 reps 3# (increased resistance) 3: Bent knee SLR with assist 2 x 10 4: Step knee extension 4 x 10 seconds, left 5: Step knee flexion 4 x 15 seconds, left 6: LAQ's 3# 2 x 15 7: Standing SLR with ue support 2 x 15 1# (increased resistance) 8: TKE on multihip 40# 2 x 10 with 2 second hold (Increased resistance) 9: Shuttle bilateral leg press 50# 2 x 15 10: Shuttle bilateral calf press 50# 2 x 15 11: Shuttle left knee flexion stretch 31# 5 x 10 second hold (Increased resistance) 12: Spirit stepper manual L2 x 10minutes ( Not billed) 13: L ITB stretch in supine w/strap 3 x 15 seco hold 14: Hamstring curl orange band 2 x 15 (increased reps) Skilled Intervention: Skilled judgment was used in selection of appropriate interventions. Correct performance of therapeutic exercises was facilitated with verbal and visual cuing. Therapeutic Activity: 1: Step up 6 step 2 x 15 2: Reciprocal stairclimbing 4/6 steps x 4 laps (Increased reps) Skilled Intervention: Educated on proper/safe technique for activities performed today. Activity progression based on professional judgment. Billing KX Modifier : Therapist attests that services rendered are medically necessary. Therapeutic Exercise Treatment Minutes: 40 Therapeutic Activity Treatment Minutes: 10 Skilled Treatment Time Minutes (timed and untimed codes): 50 Total Session Time (minutes): 71 Session Start Time : 1044 Session Stop Time : 1155 Time spent on recumbent stepper not included in billed treatment time. Cold pack applied to L knee with patient in supine for 10 minutes at the end of the session. Cold pack time not included in billed treatment time. Dwain Kolb [facility] 10-28-2023 History of Presen t illness Narrative Episode Visit Count: 12 Therapist That Will Accept/Oversee The Plan Of Care: Laura Shaffer PT, DPT Start of Care Date: 10/02/23 Onset Date: 09/30/23 Plan of Care Certification Date: 10/02/23 Next Certification Due Date: 12/25/23 Patient Identified by Name and Date of : Yes REHABILITATION AND SPORTS THERAPY PHYSICAL THERAPY TREATMENT NOTE ASSESSMENT: Emperatriz Ghosh tolerated the session with expected muscle soreness and no increased pain. She demonstrated improvements in progression of strength and tolerated increased resistance and reps for several of the activities today and she also is reporting a steady decline in her pain levels. She demonstrated increased AROM for flexion at 112 degrees.The patient will continue to benefit from ongoing skilled physical therapy to progress toward set goals. PLAN FOR NEXT VISIT: L TKA protocol to improve left knee flexion range of motion and strength. Patient to use SC in therapy session and at home.. SUBJECTIVE: Pt notes that she still has occasional exacerbations of pain in her knee but her pain seems lower at this time. She has been doing the new stretch and feels that it is helpful. Pain: Pain Pain Level: 6 Pain Location: Knee - Left Description: Sore Frequency: With movement Post Treatment Pain Post Treatment Pain Level: 5 Post Treatment Pain Location: Knee - Left OBJECTIVE MEASURES WITH LEVEL OF FUNCTION: LE AROM L Knee Extension: 0 Degrees L Knee Flexion: 112 Degrees TREATMENT: Therapeutic Exercise: 1: Heel slide 2 x 15 with 5 seconds, left 2: SAQ 2 x 15 reps 3# (increased resistance) 3: Bent knee SLR with assist 2 x 10 4: Step knee extension 4 x 10 seconds, left 5: Step knee flexion 4 x 15 seconds, left 6: LAQ's 3# 2 x 15 7: Standing SLR with ue support 2 x 15 1# (increased resistance) 8: TKE on multihip 40# 2 x 10 with 2 second hold (Increased resistance) 9: Shuttle bilateral leg press 50# 2 x 15 10: Shuttle bilateral calf press 50# 2 x 15 11: Shuttle left knee flexion stretch 31# 5 x 10 second hold (Increased resistance) 12: Spirit stepper manual L2 x 10minutes ( Not billed) 13: L ITB stretch in supine w/strap 3 x 15 seco hold 14: Hamstring curl orange band 2 x 15 (increased reps) Skilled Intervention: Skilled judgment was used in selection of appropriate interventions. Correct performance of therapeutic exercises was facilitated with verbal and visual cuing. Therapeutic Activity: 1: Step up 6 step 2 x 15 2: Reciprocal stairclimbing 4/6 steps x 4 laps (Increased reps) Skilled Intervention: Educated on proper/safe technique for activities performed today. Activity progression based on professional judgment. Billing KX Modifier : Therapist attests that services rendered are medically necessary. Therapeutic Exercise Treatment Minutes: 40 Therapeutic Activity Treatment Minutes: 10 Skilled Treatment Time Minutes (timed and untimed codes): 50 Total Session Time (minutes): 71 Session Start Time : 1044 Session Stop Time : 1155 Time spent on recumbent stepper not included in billed treatment time. Cold pack applied to L knee with patient in supine for 10 minutes at the end of the session. Cold pack time not included in billed treatment time. Dwain Kolb PTA documented in this encounter [facility] 10-25-2023 History of Presen t illness Narrative Program_ID:[id number] Access Code: [email or web address] URL: [email or web address] Date: 10-25-2023 Prepared By: Laura Shaffer Program Notes Exercises - Supine ITB Stretch with Strap - 2 x daily - 7 x weekly - 1 sets - 3 reps - seated hamstring curl with anchored resistance 50 degrees to 90 degree bend - 2 x daily - 7 x weekly - 3 sets - 10 reps Episode Visit Count: 11 Therapist That Will Accept/Oversee The Plan Of Care: Laura Shaffer PT, DPT Start of Care Date: 10/02/23 Onset Date: 09/30/23 Plan of Care Certification Date: 10/02/23 Next Certification Due Date: 12/25/23 Patient Identified by Name and Date of : Yes REHABILITATION AND SPORTS THERAPY PHYSICAL THERAPY TREATMENT NOTE ASSESSMENT: Emperatriz Ghosh tolerated the session with decreased symptoms. She demonstrated difficulty with reports of L ITB discomfort so she performed an ITB stretch in supine with the strap and she also was provided orange band and instructions for hamstring curl. She tolerated increased reps for step ups and slr's in standing. The patient will continue to benefit from ongoing skilled physical therapy to progress toward set goals. PLAN FOR NEXT VISIT: L TKA protocol to improve left knee flexion range of motion and strength. Patient to use SC in therapy session and at home.. SUBJECTIVE: Pt notes that she is having some discomfort L lateral hip and thigh to the lateral knee today. Pain: Pain Pain Level: 7 Pain Location: Knee - Left Description: Sore Frequency: With movement Post Treatment Pain Post Treatment Pain Level: 5 Post Treatment Pain Location: Knee - Left OBJECTIVE MEASURES WITH LEVEL OF FUNCTION: TREATMENT: Therapeutic Exercise: 1: Heel slide 2 x 15 with 5 seconds, left 2: SAQ 2 x 15 reps 2# 3: Bent knee SLR with assist 2 x 10 4: Step knee extension 4 x 10 seconds, left 5: Step knee flexion 4 x 15 seconds, left 6: LAQ's 2# 2 x 15 7: Standing SLR with ue support 2 x 15 (increased reps) 8: TKE on multihip 25# 2 x 10 with 2 second hold 9: Shuttle bilateral leg press 50# 2 x 15 10: Shuttle bilateral calf press 50# 2 x 15 11: Shuttle left knee flexion stretch 25# 5 x 10 second hold 12: Spirit stepper manual L2 x 10minutes ( Not billed) 13: *L ITB stretch in supine w/strap 3 x 15 seco hold 14: *Hamstring curl orange band 2 x 10 Skilled Intervention: Patient was educated in proper exercise technique and purpose for exercises. Reviewed and educated patient on additions/changes for home exercise program as above (*). Skilled judgment was used in selection of appropriate interventions. Provided written instruction for home exercise program to facilitate proper performance and compliance. Correct performance of therapeutic exercises was facilitated with verbal, visual, and tactile cuing. Therapeutic Activity: 1: Step up 6 step 2 x 15 (Increased reps) 2: Reciprocal stairclimbing 4/6 steps x 3 laps 3: Access Code: [email or web address] URL: [email or web address] Date: 10/25/2023 Prepared by: DWAIN KOLB Exercises - Supine ITB Stretch with Strap (Mirrored) - 2 x daily - 7 x weekly - 1 sets - 3 reps - 15 second hold - seated hamstring curl with anchored resistance 50 degrees to 90 degree bend (Mirrored) - 2 x daily - 7 x weekly - 3 sets - 10 reps - 3 second hold Skilled Intervention: Educated on proper/safe technique for activities performed today. Activity progression based on professional judgment. Billing KX Modifier : Therapist attests that services rendered are medically necessary. Therapeutic Exercise Treatment Minutes: 40 Therapeutic Activity Treatment Minutes: 10 Skilled Treatment Time Minutes (timed and untimed codes): 50 Total Session Time (minutes): 72 Session Start Time : 1100 Session Stop Time : 1212 Time spent on recumbent stepper not included in billed treatment time. Cold pack applied to L knee with patient in supine for 10 minutes at the end of the session. Cold pack time not included in billed treatment time. Dwain Kolb PTA documented in this encounter [facility] 10-23-2023 History of Presen t illness Narrative Episode Visit Count: 10 Therapist That Will Accept/Oversee The Plan Of Care: Laura Shaffer PT, DPT Start of Care Date: 10/02/23 Onset Date: 09/30/23 Plan of Care Certification Date: 10/02/23 Next Certification Due Date: 12/25/23 Patient Identified by Name and Date of : Yes REHABILITATION AND SPORTS THERAPY PHYSICAL THERAPY TREATMENT NOTE ASSESSMENT: Emperatriz R Doerflinger tolerated the session with decreased symptoms. She demonstrated difficulty with lifting her L le on/off the bed and exercise equipment without the assistance of her ue's to complete. She demonstrated improvements in progression of resistance on the shuttle and the TKE and she required less assist with slr's and increased reps. She also tolerated initiation of stairclimbing activities and was able to perform step ups on 6 step. The patient will continue to benefit from ongoing skilled physical therapy to progress toward set goals. PLAN FOR NEXT VISIT: L TKA protocol to improve left knee flexion range of motion and strength. Patient to use SC in therapy session and at home.. SUBJECTIVE: Pt notes that her L knee has been bothering her a little more the past few days. Pain: Pain Pain Level: 8 Pain Location: Knee - Left Description: Sore Frequency: With movement Post Treatment Pain Post Treatment Pain Level: 7 Post Treatment Pain Location: Knee - Left OBJECTIVE MEASURES WITH LEVEL OF FUNCTION: TREATMENT: Therapeutic Exercise: 1: Heel slide 2 x 15 with 5 seconds, left 2: SAQ 2 x 15 reps 2# 3: Bent knee SLR with assist 2 x 10 (Increased reps) 4: Step knee extension 4 x 10 seconds, left 5: Step knee flexion 4 x 15 seconds, left 7: Standing SLR with ue support 2 x 10 8: TKE on multihip 25# 2 x 10 with 2 second hold (Increased resistance) 9: Shuttle bilateral leg press 50# 2 x 15 (Increased resistance) 10: Shuttle bilateral calf press 50# 2 x 15 (Increased resistance and reps) 11: Shuttle left knee flexion stretch 25# 5 x 10 second hold (Increased resistance) 12: Spirit stepper manual L2 x 10minutes ( Not billed) Skilled Intervention: Skilled judgment was used in selection of appropriate interventions. Correct performance of therapeutic exercises was facilitated with verbal, visual, and tactile cuing. Therapeutic Activity: 1: Step up 6 step 2 x 10 (Increased challenge) 2: Reciprocal stairclimbing 4/6 steps x 3 laps Skilled Intervention: Proper patient guarding to prevent falls/increase patient safety with supervision to assist patient while performing stair activities Educated on proper/safe technique for activities performed today. Activity progression based on professional judgment. Billing KX Modifier : Therapist attests that services rendered are medically necessary. Therapeutic Exercise Treatment Minutes: 35 Therapeutic Activity Treatment Minutes: 10 Skilled Treatment Time Minutes (timed and untimed codes): 45 Total Session Time (minutes): 68 Session Start Time : 1045 Session Stop Time : 1153 Time spent on recumbent stepper not included in billed treatment time. Cold pack applied to L knee with patient in supine for 10 minutes at the end of the session. Cold pack time not included in billed treatment time. Dwain Kolb PTA documented in this encounter [facility] 10-18-2023 History of Presen t illness Narrative Program_ID:[id number] Access Code: [email or web address] URL: [email or web address] Date: 10-18-2023 Prepared By: Laura Shaffer Program Notes Exercises - Standing Hip Flexion AROM - 2 x daily - 7 x weekly - 2 sets - 10 reps Episode Visit Count: 8 Therapist That Will Accept/Oversee The Plan Of Care: Laura Shaffer PT, DPT Start of Care Date: 10/02/23 Onset Date: 09/30/23 Plan of Care Certification Date: 10/02/23 Next Certification Due Date: 12/25/23 Patient Identified by Name and Date of : Yes REHABILITATION AND SPORTS THERAPY PHYSICAL THERAPY TREATMENT NOTE ASSESSMENT: Emperatriz Ghosh tolerated the session with expected muscle soreness. She demonstrated difficulty with stretches at the stairs requiring cues for technique and foot placement with pt noting discomfort in the R knee when performing. She demonstrated improvements with addition of SLR in standing, TKE on the multihip, and increased time on the recumbent stepper. She also tolerated increased reps for step ups.The patient will continue to benefit from ongoing skilled physical therapy to progress toward set goals. PLAN FOR NEXT VISIT: L TKA protocol to improve left knee flexion range of motion and strength. *Increase resistance for saq's next session.. Re-eval 10/21/2023 SUBJECTIVE: Pt notes that she went to the surgeons office this a.m. to have a staple removed that was left in inadvertantly. She reports pain at 6/10. Pain: Pain Pain Level: 6 Pain Location: Knee - Left Description: Aching, Sore Frequency: With movement Post Treatment Pain Post Treatment Pain Level: 7 Post Treatment Pain Location: Knee - Left OBJECTIVE MEASURES WITH LEVEL OF FUNCTION: TREATMENT: Therapeutic Exercise: 1: Heel slide 2 x 15 with 5 seconds, left 2: SAQ 2 x 15 reps 1# 3: Bent knee SLR with assist 2 x 5 4: Step knee extension 4 x 10 seconds, left 5: Step knee flexion 4 x 15 seconds, left 7: *Standing SLR with ue support 2 x 10 8: TKE on multihip 25# 2 x 10 9: Shuttle bilateral leg press 43# 2 x 15 10: Shuttle bilateral calf press 43# 2 x 10 11: Shuttle single leg press 25# 2 x 15 12: Step up 4 step x 10 13: Recumbent stepper manual L2 x 10minutes ( Not billed) (Increased time) Skilled Intervention: Patient was educated in proper exercise technique and purpose for exercises. Reviewed and educated patient on additions/changes for home exercise program as above (*). Skilled judgment was used in selection of appropriate interventions. Provided written instruction for home exercise program to facilitate proper performance and compliance. Home Exercise Program Assigned: 1: *Standing SLR with ue support 2 x 10 2: Access Code: [email or web address] URL: [email or web address] Date: 10/18/2023 Prepared by: DWAIN KOLB Exercises - Standing Hip Flexion AROM - 2 x daily - 7 x weekly - 2 sets - 10 reps - 3 second hold Billing KX Modifier : Therapist attests that services rendered are medically necessary. Therapeutic Exercise Treatment Minutes: 45 Skilled Treatment Time Minutes (timed and untimed codes): 45 Total Session Time (minutes): 65 Session Start Time : 1145 Session Stop Time : 1250 Time spent on recumbent stepper not included in billed treatment time. Cold pack applied to L knee with patient in supine for 10 minutes at the end of the session. Cold pack time not included in billed treatment time. Dwain Kolb PTA documented in this encounter [facility] 10-17-2023 Miscellaneous Notes Pt notified of the below, pt verbalized concerns about previously having difficulty breathing and possibly being related to PTM dosing, this was discussed at last office visit The patient will continue with her intrathecal morphine pump and PTM dosing. She was encouraged to gradually increase PTM dosing to see if it affects her breathing. Pt states she has not used more than 2 PTM doses and currently is not using any while taking the surgeons medication. I advised pt to start with the 2 she is use to and encouraged her to follow the drs instructions of gradually increasing. Pt stated she may have more Tramadol than previously disclosed and asked if she could use PTM with Tramadol. I advised pt not to use PTM while taking surgeons prescribed narcotics. Pt verbalized understanding Kimberlee Mendenhall RN October 17, 2023 11:43 AM She is now 2 weeks post op. She should be relying on PTM dosing of IT pump once post op pain meds are gone. Pt states she had her 2wk post op visit on Saturday with ortho, pt states she has been advised to contact pain management for further scripts, pt states she has enough meds to get to Saturday or Saturday, she is currently taking: *Tramadol 50mg 4xdaily scheduled, with tylenol *Oxycodone 5mg 4-6xdaily as needed for breakthru pain Please advise Kimberlee Mendenhall RN October 17, 2023 11:14 AM documented in this encounter [facility] 10-16-2023 History of Presen t illness Narrative Episode Visit Count: 7 Therapist That Will Accept/Oversee The Plan Of Care: Laura Shaffer, PT, DPT Start of Care Date: 10/02/23 Onset Date: 09/30/23 Plan of Care Certification Date: 10/02/23 Next Certification Due Date: 12/25/23 Patient Identified by Name and Date of : Yes REHABILITATION AND SPORTS THERAPY PHYSICAL THERAPY TREATMENT NOTE ASSESSMENT: Emperatriz Ghosh tolerated the session with expected muscle soreness. She demonstrated difficulty with exercises throughout the session. She required verbal and visual cues. I added soft tissue massage to left quadriceps to decrease tenderness. The patient will continue to benefit from ongoing skilled physical therapy to continue with post-operative protocol. PLAN FOR NEXT VISIT: L TKA protocol to improve left knee flexion range of motion and strength. Initiate standing slr's. Re-eval 10/21/2023 SUBJECTIVE: The patient had her 2 week check up with her doctor. He was happy with her progress. She doesn't need the compression stocking or use of ankle pump stimulators. She returns to the doctor in 4 weeks. Pain: Pain Pain Level: 8 Pain Location: Knee - Left Description: Stiffness, Sharp Frequency: With movement Post Treatment Pain Post Treatment Pain Level: No Change Post Treatment Pain Location: Knee - Left OBJECTIVE MEASURES WITH LEVEL OF FUNCTION: No objective measurements taken this session. TREATMENT: Therapeutic Exercise: 1: Heel slide 2 x 15 with 5 seconds, left 2: SAQ 2 x 15 reps 1# 3: Bent knee SLR with assist 2 x 5 4: Step knee extension 4 x 10 seconds, left 5: Step knee flexion 4 x 15 seconds, left 9: Shuttle bilateral leg press 43# 2 x 15 10: Shuttle bilateral calf press 43# 2 x 10 11: Shuttle single leg press 25# 2 x 15 12: Step up 4 step x 10 13: Recumbent stepper manual L2 x 8 minutes ( Not billed) Skilled Intervention: Skilled judgment was used in selection of appropriate interventions. Correct performance of therapeutic exercises was facilitated with verbal, visual, and tactile cuing. Manual Therapy: 1: STM to Left quadricep 2: Seated knee flexion stretch 5 x 10 seconds, left Skilled Intervention: Manual skills to improve joint mobility, ROM, and decrease pain. Utilized anatomy knowledge of the therapist, and assessment of patient's response to intervention. Billing KX Modifier : Therapist attests that services rendered are medically necessary. Therapeutic Exercise Treatment Minutes: 29 Manual TherapyTreatment Minutes: 12 Skilled Treatment Time Minutes (timed and untimed codes): 41 Total Session Time (minutes): 62 Session Start Time : 1019 Session Stop Time : 1121 Cold pack applied to left knee with patient in supine for 10 minutes at the end of the session. Cold pack time not included in billed treatment time. Laura Shaffer PT, DPT documented in this encounter [facility] 10-14-2023 History of Presen t illness Narrative Episode Visit Count: 6 Therapist That Will Accept/Oversee The Plan Of Care: Laura Shaffer PT DPT Start of Care Date: 10/02/23 Onset Date: 09/30/23 Plan of Care Certification Date: 10/02/23 Next Certification Due Date: 12/25/23 Patient Identified by Name and Date of : Yes REHABILITATION AND SPORTS THERAPY PHYSICAL THERAPY TREATMENT NOTE ASSESSMENT: Emperatriz Ghosh tolerated the session with expected muscle soreness. She demonstrated difficulty with slr's and she was unable to complete as she reported increased pain and became tearful. She also had difficulty with extension stretch on step due to discomfort in the R knee while performing. Despite her pain, she demonstrated improvements in addition of 1# for saq's and increased resistance on the shuttle. She also tolerated lowering the seat height for sit to stand and did well with step ups on 4 step. The patient will continue to benefit from ongoing skilled physical therapy to progress toward set goals. PLAN FOR NEXT VISIT: L TKA protocol to improve left knee flexion range of motion and strength. Attempt to progress flexion stretching, possibly passive at eob. Initiate standing slr's. SUBJECTIVE: Pt notes that she is having increased pain in the L knee/mireles/calf. She was tearful during today's session. Pain: Pain Pain Level: 8 Pain Location: Knee - Left Description: Stiffness, Sharp, Aching Frequency: With movement Post Treatment Pain Post Treatment Pain Level: No Change Post Treatment Pain Location: Knee - Left OBJECTIVE MEASURES WITH LEVEL OF FUNCTION: TREATMENT: Therapeutic Exercise: 1: Heel slide 2 x 15 with 5 seconds, left 2: SAQ 2 x 15 reps 1# (Increased resistance) 3: 1/2 Straight leg raise 2 x 5, left with assist (unable to perform due to pain. Pt tearful) 4: Step knee extension 4 x 15 seconds, left (Only tolerated one rep, noting pain in the other leg) 5: Step knee flexion 4 x 15 seconds, left 6: Seated gastroc stretch with strap 3 x 30 seconds 7: 22 Sit to stand 2 x 5; no UE assist (lowered seat for challenge) 8: Seated LAQ 2 x 10 reps 9: Resisted knee flexion 2 x 15 reps w/ orange band (Increased reps) 10: Shuttle bilateral leg press 43# 2 x 15 (Increased resistance) 11: Shuttle single leg press 25# 2 x 15 (Increased reps and resistance) 12: Step up 4 step x 10 13: Recumbent stepper manual L2 x 8 minutes Skilled Intervention: Patient was educated in proper exercise technique and purpose for exercises. Skilled judgment was used in selection of appropriate interventions. Correct performance of therapeutic exercises was facilitated with verbal and visual cuing. Billing Therapeutic Exercise Treatment Minutes: 55 Skilled Treatment Time Minutes (timed and untimed codes): 55 Total Session Time (minutes): 75 Session Start Time : 1000 Session Stop Time : 1115 Time spent on recumbent stepper not included in billed treatment time. Cold pack applied to L knee with patient in supine for 10 minutes at the end of the session. Cold pack time not included in billed treatment time. Dwain Kolb PTA documented in this encounter [facility] 10-11-2023 History of Presen t illness Narrative Episode Visit Count: 5 Therapist That Will Accept/Oversee The Plan Of Care: Laura Shaffer PT, DPT Start of Care Date: 10/02/23 Onset Date: 09/30/23 Plan of Care Certification Date: 10/02/23 Next Certification Due Date: 12/25/23 Patient Identified by Name and Date of : Yes REHABILITATION AND SPORTS THERAPY PHYSICAL THERAPY TREATMENT NOTE ASSESSMENT: Emperatriz Ghosh tolerated the session with decreased symptoms. She demonstrated ability to perform full session even with high level of pain at the beginning of the session. The patient will continue to benefit from ongoing skilled physical therapy to progress toward set goals. PLAN FOR NEXT VISIT: L TKA protocol to improve left knee flexion range of motion and strength. SUBJECTIVE: Patient reported that her pain is elevated this date. Pain: Pain Pain Level: 9 Pain Location: Knee - Left Description: Stiffness, Sharp Frequency: With movement Post Treatment Pain Post Treatment Pain Level: 8 OBJECTIVE MEASURES WITH LEVEL OF FUNCTION: No objective measures taken this date. TREATMENT: Therapeutic Exercise: 1: Heel slide 2 x 15 with 5 seconds, left (Increased reps) 2: SAQ 2 x 15 reps 3: 1/2 Straight leg raise 2 x 5, left with assist 4: Step knee extension 4 x 15 seconds, left 5: Step knee flexion 4 x 15 seconds, left 6: Seated gastroc stretch with strap 3 x 30 seconds 7: 23 Sit to stand 2 x 5; no UE assist 8: Seated LAQ 2 x 10 reps 9: Resisted knee flexion 2 x 10 reps w/ orange band 10: Shuttle bilateral leg press 37# 2 x 15 (Increased reps) 11: Shuttle single leg press 18# 2 x 10 12: Recumbent stepper manual L1 x 7 minutes Skilled Intervention: Skilled judgment was used in selection of appropriate interventions. Billing Therapeutic Exercise Treatment Minutes: 48 Skilled Treatment Time Minutes (timed and untimed codes): 48 Total Session Time (minutes): 65 Session Start Time : 1145 Session Stop Time : 1250 Time spent on recumbent stepper not included in billed treatment time. Cold pack applied to left knee with patient in supine with left LE elevated on pillow for 10 minutes at the end of the session. Cold pack time not included in billed treatment time. Maya Goel PTA documented in this encounter [facility] 10-09-2023 History of Presen t illness Narrative Episode Visit Count: 4 Therapist That Will Accept/Oversee The Plan Of Care: Laura Shaffer, PT, DPT Start of Care Date: 10/02/23 Onset Date: 09/30/23 Plan of Care Certification Date: 10/02/23 Next Certification Due Date: 12/25/23 Patient Identified by Name and Date of : Yes REHABILITATION AND SPORTS THERAPY PHYSICAL THERAPY TREATMENT NOTE ASSESSMENT: Emperatriz Ghosh tolerated the session with expected muscle soreness. She demonstrated difficulty with cramping in her L calf and she noted increased discomfort in her knee with slr's during today's session. She demonstrated improvements in progression of reps for SAQ's,increased resistance for bilateral shuttle, and increased time on the recumbent stepper. Pt tolerated the addition of single leg shuttle activities and she progressed to 23 sit to stand. The patient will continue to benefit from ongoing skilled physical therapy to progress toward set goals. PLAN FOR NEXT VISIT: L TKA protocol to improve left knee flexion range of motion and strength. SUBJECTIVE: Pt notes that she had increased discomfort following her last session. She is having increased discomfort in the knee this a.m. She noted some blood on her dressing after her last session but not a copious amount. She has an appointment at Dr. Huston's office this Saturday. Pain: Pain Pain Level: 8 Pain Location: Knee - Left Description: Sharp Frequency: With movement Post Treatment Pain Post Treatment Pain Level: No Change Post Treatment Pain Location: Knee - Left OBJECTIVE MEASURES WITH LEVEL OF FUNCTION: TREATMENT: Therapeutic Exercise: 1: Heel slide 2 x 10 with 5 seconds, left 2: SAQ 2 x 15 reps (Increased reps) 3: 1/2 Straight leg raise 2 x 5, left with assist (pt demonstrating difficulty and tearful/noting increased pain) 4: Step knee extension 4 x 15 seconds, left 5: Step knee flexion 4 x 15 seconds, left 6: Seated gastroc stretch with strap 3 x 30 seconds 7: 23 Sit to stand 2 x 5; no UE assist (lowered seat for challenge) 8: Seated LAQ 2 x 10 reps 9: Resisted knee flexion 2 x 10 reps w/ orange band 10: Shuttle bilateral eg press 31# 2 x 15 (Increased reps and resistance) 11: Shuttle single leg press 18# 2 x 10 12: Recumbent stepper manual L1 x 7 minutes (Increased time) Skilled Intervention: Patient was educated in proper exercise technique and purpose for exercises. Skilled judgment was used in selection of appropriate interventions. Correct performance of therapeutic exercises was facilitated with verbal, visual, and tactile cuing. Billing Therapeutic Exercise Treatment Minutes: 53 Skilled Treatment Time Minutes (timed and untimed codes): 53 Total Session Time (minutes): 73 Session Start Time : 1047 Session Stop Time : 1200 Time spent on recumbent stepper not included in billed treatment time. Cold pack applied to L knee with patient in supine for 10 minutes at the end of the session. Cold pack time not included in billed treatment time. Dwain Kolb PTA documented in this encounter [facility] 10-07-2023 History of Presen t illness Narrative Episode Visit Count: 3 Therapist That Will Accept/Oversee The Plan Of Care: Laura Shaffer PT, DPT Start of Care Date: 10/02/23 Onset Date: 09/30/23 Plan of Care Certification Date: 10/02/23 Next Certification Due Date: 12/25/23 Patient Identified by Name and Date of : Yes REHABILITATION AND SPORTS THERAPY PHYSICAL THERAPY TREATMENT NOTE ASSESSMENT: Emperatriz Ghosh tolerated the session with expected muscle soreness. She demonstrated difficulty with pain. The patient will continue to benefit from ongoing skilled physical therapy to continue with post-operative protocol. PLAN FOR NEXT VISIT: L TKA protocol to improve left knee flexion range of motion and strength. SUBJECTIVE: The patient states she took 2 oxycodone so she could tolerate therapy. She was really sore after last visit. Pain: Pain Pain Level: 8 Pain Location: Knee - Left Description: Sharp Frequency: With movement OBJECTIVE MEASURES WITH LEVEL OF FUNCTION: No objective measurements taken this session. TREATMENT: Therapeutic Exercise: 1: Heel slide 2 x 10 with 5 seconds, left 2: SAQ 2 x 10 reps 3: 1/2 Straight leg raise 2 x 10, left with assist 4: Step knee extension 4 x 15 seconds, left 5: Step knee flexion 4 x 15 seconds, left 6: Seated gastroc stretch with strap 3 x 30 seconds 7: 24 Sit to stand 2 x 5; no UE assist 8: Seated LAQ 2 x 10 reps 9: Resisted knee flexion 2 x 10 reps w/ orange band 10: Shuttle Leg press 25# 2 x 10 11: Recumbent stepper manual L1 x 5 minutes Skilled Intervention: Skilled judgment was used in selection of appropriate interventions. Correct performance of therapeutic exercises was facilitated with verbal and visual cuing. Manual Therapy: 1: Manual knee flexion stretch x 10 with 5 second hold Skilled Intervention: Manual skills to improve joint mobility, ROM, and decrease pain. Utilized anatomy knowledge of the therapist, and assessment of patient's response to intervention. Cold pack applied to left knee with patient in supine for 10 minutes at the end of the session. Cold pack time not included in billed treatment time. Billing Therapeutic Exercise Treatment Minutes: 40 Manual TherapyTreatment Minutes: 2 Skilled Treatment Time Minutes (timed and untimed codes): 43 Total Session Time (minutes): 60 Session Start Time : 844 Session Stop Time : 944 Laura Shaffer PT, DPT documented in this encounter [facility] 10-03-2023 History of Presen t illness Narrative Program_ID:[id number] Access Code: [email or web address] URL: [email or web address] Date: 10-03-2023 Prepared By: Laura Shafefr Program Notes Exercises - Supine Short Arc Quad - 2 x daily - 7 x weekly - 2 sets - 10 reps - Seated Long Arc Quad - 2 x daily - 7 x weekly - 2 sets - 10 reps Episode Visit Count: 2 Therapist That Will Accept/Oversee The Plan Of Care: Laura Shaffer PT, DPT Start of Care Date: 10/02/23 Onset Date: 09/30/23 Plan of Care Certification Date: 10/02/23 Next Certification Due Date: 12/25/23 Patient Identified by Name and Date of : Yes REHABILITATION AND SPORTS THERAPY PHYSICAL THERAPY TREATMENT NOTE ASSESSMENT: Emperatriz Ghosh tolerated the session with decreased symptoms. She demonstrated good tolerance to progression of exercises this date with less pain reported at the end of the session. The patient will continue to benefit from ongoing skilled physical therapy to progress toward set goals. PLAN FOR NEXT VISIT: L TKA protocol to improve left knee flexion range of motion and strength. SUBJECTIVE: Patient reported that she was feeling pretty good in bed this a.m. but then her pain increased once she got up. Pain: Pain Pain Level: 8 Pain Location: Knee - Left Description: Sharp Frequency: With movement Post Treatment Pain Post Treatment Pain Level: 7 OBJECTIVE MEASURES WITH LEVEL OF FUNCTION: No objective measures taken this date. TREATMENT: Therapeutic Exercise: 1: Quad sets 2 x 10 with 5 second hold, left (Increased reps) 2: Heel slide 2 x 10 with 5 seconds, left (Increased reps) 3: 1/2 Straight leg raise 2 x 10, left with assist (Increased reps) 4: Supine hip abduction 2 x 10, left (Increased reps) 5: SAQ 2 x 10 reps 6: Seated gastroc stretch with strap 3 x 30 seconds 7: Seated hamstring stretch 3 x 30 seconds, left 8: Seated knee flexion stretch 5 x 10 seconds, left 9: Seated LAQ 2 x 10 reps 10: Resisted knee flexion 2 x 10 reps w/ orange band 11: Recumbent stepper manual L1 x 5 minutes Skilled Intervention: Patient was educated in proper exercise technique and purpose for exercises. Reviewed and educated patient on additions/changes for home exercise program as above (*). Skilled judgment was used in selection of appropriate interventions. Home Exercise Program Assigned: 1: Access Code: [email or web address] URL: [email or web address] Date: 10/03/2023 Prepared by: MAYA GOEL Exercises - Supine Short Arc Quad - 2 x daily - 7 x weekly - 2 sets - 10 reps - 3 hold - Seated Long Arc Quad - 2 x daily - 7 x weekly - 2 sets - 10 reps - 3 hold Billing Therapeutic Exercise Treatment Minutes: 45 Skilled Treatment Time Minutes (timed and untimed codes): 45 Total Session Time (minutes): 62 Session Start Time : 0850 Session Stop Time : 0952 Time spent on recumbent stepper not included in billed treatment time. Cold pack applied to left knee with patient in supine with left LE elevated on pillow for 10 minutes at the end of the session. Cold pack time not included in billed treatment time. Maya Goel PTA documented in this encounter [facility] 10-02-2023 History of Presen t illness Narrative Program_ID:[id number] Access Code: [email or web address] URL: [email or web address]/ Date: 10-02-2023 Prepared By: Laura Shaffer Program Notes Exercises - Supine Ankle Pumps - 2 x daily - 7 x weekly - 2 sets - 10 reps - Supine Heel Slide with Strap - 3 x daily - 7 x weekly - 2 sets - 10 reps - Supine Quad Set - 2 x daily - 7 x weekly - 2 sets - 10 reps - Supine Hip Abduction - 1 x daily - 7 x weekly - 2 sets - 10 reps - Supine Active Straight Leg Raise - 1 x daily - 7 x weekly - 2 sets - 10 reps - Seated Hamstring Stretch - 2 x daily - 7 x weekly - 3 sets - 10 reps - Seated Calf Stretch with Strap - 2 x daily - 7 x weekly - 1 sets - 2 reps - Seated Knee Flexion Stretch - 2 x daily - 7 x weekly - 1 sets - 5 reps Episode Visit Count: 1 Therapist That Will Accept/Oversee The Plan Of Care: Laura Shaffer PT, DPT Start of Care Date: 10/02/23 Onset Date: 09/30/23 Plan of Care Certification Date: 10/02/23 Next Certification Due Date: 12/25/23 Patient Identified by Name and Date of : Yes REHABILITATION AND SPORTS THERAPY PHYSICAL THERAPY EVALUATION PLAN OF CARE: Assessment: Emperatriz Ghosh presents with diagnosis of s/p left total knee arthoplasty that interferes with rising from a chair, standing, walking, walking in the house, walking in the community, stair negotiation, lifting, physical activities, recreational activities . She presents with impairments in ADL's, balance, flexibility, gait, range of motion, strength, and symptom management. Patient did not complete the PROMIS (Patient Reported Outcome Measures Information System). Prognosis for therapy is Excellent due to: current objective clinical presentation, good overall health status, acuteness of condition, positive past response to therapy . She will benefit from skilled therapy services to meet the goals established for this plan of care as noted below. Goals for Episode of Care: created on 10/02/23 through 12/25/23 [place] in home exercise program. Patient will decrease pain to 2/10 with functional activities to allow patient to improve ambulation and transfers. Patient will increase active ROM of left knee to 0-115 degrees to allow pt to to improve gait mechanics / gait pattern . Patient will demonstrate increase in left lower extremity strength to 4+/5 during manual muscle testing in order to improve function for prior functional tasks. Normal gait. Reciprocal stair negotiation. Patient Goals: The patient's goal is to get knee functional. Planned Interventions, Frequency, and Duration: Current Frequency: 3x/week Duration: 12 weeks Total Number of Visits Planned: 24 Planned Treatment Interventions: Therapeutic exercise (74779), Neuromuscular re-education (19067), Manual therapy (24895), Therapeutic activities (10609), Self-mcc management (33816), Gait Training (32319) PLAN FOR NEXT VISIT: L TKA protocol to improve left knee flexion range of motion and strength. Patient demonstrates good understanding of plan of care and treatment. The above goals and plan of care were discussed and agreed upon by patient/family. SUBJECTIVE: The patient is s/p 09/30/2023. She has severe pain with bending her left knee. The patient has a back pain pump. Patient Goals: The patient's goal is to get knee functional. Functional Limitations: rising from a chair, standing, walking, walking in the house, walking in the community, stair negotiation, lifting, physical activities, recreational activities Prior Level of Function: Independent with restrictions Independent with the following restrictions: Patient isn't suppose to bend over due to back Relevant History Past Relevant Surgical Conditions: Total Knee Replacement-Right, Total Knee Replacement-Left, Total Hip Replacement-Left, Total Hip Replacement-Right, Spine fusion - Lumbar Employment: Retired Recreation / Current Exercise: None Hobbies / Interests: Dance, bike, grandchildren Home Environment Patient Lives With: Spouse Assistance Available: Part-Time Home Type: [place] Entry To Home: Stairs, With Rail, Ramp Number Of Stairs Into Home: 2 Tub/Shower Type: step over tub shower Laundry: Main level Intake Information: Prescription present Falls Interview: No positive findings with falls interview Pain: Pain Pain Level: 9 Pain Location: Knee - Left Description: Sharp Frequency: (Bending) PROMIS Scales T-scores: mean of general population = 50. 5 points is clinically meaningfully difference Percentiles provide an indication of how the patient's score ranks in relation to the general population. Higher percentile rankings indicate better function/quality of life. 50th percentile is the average of the general population and indicates half of respondents had a worse score. OBJECTIVE MEASURES WITH LEVEL OF FUNCTION: LE AROM R Knee Extension: 0 Degrees R Knee Flexion: 105 Degrees L Knee Extension: 0 Degrees L Knee Flexion: 70 Degrees LE Strength R Hip Flexion (L2): 4/5 R Hip ABduction: 4/5 R Hip ADduction: 4/5 R Knee Extension (L3): 4+/5 R Knee Flexion: 4+/5 R Ankle Dorsiflexion (L4): 4+/5 R Ankle Plantar Flexion: 4+/5 L Hip Flexion (L2): 2+/5 L Hip ABduction: 3/5 L Hip ADduction: 3/5 L Knee Extension (L3): 3+/5 L Knee Flexion: 3/5 L Ankle Dorsiflexion (L4): 4/5 Education: Education Learning Preferences: Demonstration, Explanation, Performance, Printed Materials Barriers: None Learning/educational needs: Plan of Care, Home exercise program Education Provided: Yes, see treatment interventions for education provided Education Provided To: Patient Education Mode/Type: Demonstration, Explanation/Discussion, Literature/Printed Materials, Performance Response to Education/Teach Back: States/Identifies, Return Demonstration TREATMENT: PT Treatment Interventions: Therapeutic Exercise Evaluation Therapeutic Exercise: 1: * Quad sets x 10 with 5 second hold, left 2: * Heel slide x 10 with 5 seconds, left 3: * 1/2 Straight leg raise x 10, left 4: * Supine hip abduction with assist x 10, left 5: * Seated gastroc stretch with strap x 30 seconds 6: * Seated hamstring stretch x 30 seconds, left 7: * Seated knee flexion stretch 5 x 10 seconds, left 8: * Ankle pumps x 10 Skilled Intervention: Reviewed and educated patient on additions/changes for home exercise program as above (*). Skilled judgment was used in selection of appropriate interventions. Provided written instruction for home exercise program to facilitate proper performance and compliance. Correct performance of therapeutic exercises was facilitated with verbal and visual cuing. Cold pack applied to left knee with patient in supine for 10 minutes at the end of the session. Cold pack time not included in billed treatment time. Billing * Evaluation Moderate Complexity: 1 Unit Therapeutic Exercise Treatment Minutes: 15 Total Session Time (minutes): 46 Session Start Time : 1017 Session Stop Time : 1103 Laura Shaffer PT, DPT documented in this encounter [facility] 09-26-2023 Miscellaneous Notes The following approved medication requests have been transmitted electronically. Requested Prescriptions Pending Prescriptions Disp Refills morphine (PF) 5 mg/mL in NaCl 0.9% 20 mL 20 mL 0 Sig: PF MORPHINE 5 MG/ML SIMPLE CONTINUOUS RATE 0.8636 mg/ day PTM 0.0799 mg every 4 hours (max 6 doses per day) Total daily dose 1.3397mg Maynor Robles PA-C [employer] request pump refill Rx: Requested Prescriptions Pending Prescriptions Disp Refills morphine (PF) 5 mg/mL in NaCl 0.9% 20 mL 20 mL 0 Sig: PF MORPHINE 5 MG/ML SIMPLE CONTINUOUS RATE 0.8636 mg/ day PTM 0.0799 mg every 4 hours (max 6 doses per day) Total daily dose 1.3397mg Lydia Day RN documented in this encounter [facility] 07-10-2023 Miscellaneous Notes Items addressed in this encounter: MyChart Encounter Pt has a follow up scheduled with Dr Andrews. Able to close encounter. Kaylene Driver MA July 10, 2023 10:17 AM 10:17 AM documented in this encounter [facility] 07-10-2023 Instructions Jaci Nixon APRN.ANESTHESIOLOGIST - 07/10/2023 9:45 AM EST The OARRS report has been reviewed and is consistent with the patient s medical history and medication intake Encouraged to do HEP. Continue ITP: PF MORPHINE by SIMPLE CONTINUOUS RATE 0.864 mg/ day PTM 0.0799 mg every 4 hours (max 6 doses per day) -ERD: 05/2029 Continue Gabapentin 300 mg tablet TID managed by Dr. Luda Ann Continue using Lido-Prilo cream.-call for a refill Continue SI joint stabilizer belt from [facility] and schedule LEFT SI JOINT INJECTION PRN-last done on 06/27/23-received 80% relief. Continue HEP Continue to follow-up with Dr. Soto (hip) prn Follow-up with Orthopedics for left carpal tunnel surgery 04/2023 Continue to follow-up with Research Chief Engineer Previously discussed changing to Dilaudid and adding Marcaine if higher dose of Morphine not effective. AVOID NSAIDS and spicy foods Follow-up on 07/31/[address] Juliana Nixon APRN.ANESTHESIOLOGIST documented in this encounter [facility] 07-10-2023 History of Presen t illness Narrative This video visit was performed via [employer] video visit. Patient consented to receive health care services via virtual visit for this encounter Provider Location: Non-[facility] Facility Patient Location: Patient Home or Place of Residence I have communicated my name and active licensure. The patient's identity and physical location were verified at the time of this visit. Either the patient or their legal vendor representatives has been informed of the risks and benefits of -- and alternatives to -- treatment through a remote evaluation and consents to proceed with the evaluation remotely. Chief Complaint: Pain History of Present Illness: Emperatriz Ghosh is a 73 year old year old female being seen at [facility] for a evaluation and/or management of their chronic pain. This patient has an office visit on 04/15/[address] Lyn. She is scheduled for a virtual visit today. On 06/27/23 she had a LEFT SI JOINT INJECTION and received 80% relief. She continues to f/u with the stand in due to SOB. She did state that the SOB is getting better. VAS: 5/10 Chief complaint: LBP Location: across her back Timing: varies with activity Severity: varies Quality: dull, aching Radiation:up to her thoracic area Numbness: denies Burning: denies Tingling: denies Weakness: denies Falls: denies Alleviating Factors: analgesic therapy, rest-to some degree, injections, Compound cream Aggravating Factors: increased activity, prolonged walking, standing The patient denies any bowel or bladder dysfunction Since the last office visit the patients medical history has not changed. The patient denies any new diagnoses, hospital visits or ER visits. The patient is currently prescribed ITP and lido-prilo cream from our office. The OARRS report has been reviewed and is consistent with the patients medical history and medication intake. Last UDS: The UDS has been reviewed and is consistent with medications prescribed. Summary Report Date Value Ref Range Status 01/07/2023 FINAL Final Comment: Opiate Class, MS, Ur RFX Oxycodone Class, MS, Ur RFX Gabapentin, MS, Ur RFX Acetaminophen, MS, Ur RFX ToxAssure Flex 23, Ur Test Result Flag Units Drug Present Morphine 458 ng/mg creat Potential sources of morphine include administration of codeine or morphine, use of heroin, or ingestion of poppy seeds. Oxycodone 1770 ng/mg creat Oxymorphone 862 ng/mg creat Noroxycodone 1356 ng/mg creat Noroxymorphone 178 ng/mg creat Sources of oxycodone are scheduled prescription medications. Oxymorphone, noroxycodone, and noroxymorphone are expected metabolites of oxycodone. Oxymorphone is also available as a scheduled prescription medication. Gabapentin PRESENT Acetaminophen PRESENT Test Result Flag Units Ref Range Creatinine 50 mg/dL >=20 Declared Medications: Medication list was not provided. For clinical consultation, please call . No results found for: SUMMAR REVIEW OF SYSTEMS: GENERAL: No weight loss, malaise or fevers RESPIRATORY: Negative for cough, hemoptysis, wheezing, COPD, (+) shortness of breath at times. CARDIOVASCULAR: Negative for chest pain, leg swelling, hypertension, CHF or palpitations GI: No nausea, vomiting, or diarrhea. MUSCULOSKELETAL: (+) for joint pain back pain or muscle pain. 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 Back pain Essential hypertension HIGH CHOL GERD (gastroesophageal reflux disease) Hiatal hernia High cholesterol Incontinence of urine Joint pain Sleep apnea mild sleep apnea- no cpap used Wears glasses PAST SURGICAL HISTORY Procedure Laterality Date BLADDER SURGERY HX REPAIR AND LIFT CARPAL TUNNEL RIGHT WRIST Right 02/2023 HYSTERECTOMY HX VAGINAL INTRATHECAL PUMP PLACEMENT 09/28/2022 ORTHOPEDICS SURGERY HX HIP REPLACED TOTAL KNEE REPLACEMENT Right RIGHT TOTAL KNEE REPLACED FAMILY HISTORY Problem Relation Age of Onset Stroke Father Heart disease Father Kidney Disease Mother Osteoporosis Mother Diabetes Sister Breast Cancer Sister Social History Tobacco Use Smoking status: Never Passive exposure: Never Smokeless tobacco: Never Substance Use Topics Alcohol use: Not Currently Drug use: Not Currently Allergies: No Known Allergies Current Outpatient Medications Medication Sig famotidine (PEPCID) 20 mg tablet Take 20 mg by mouth daily at bedtime. calcium carbonate (CALTRATE) 600 mg calcium (1,500 mg) tab Take by mouth every 24 hours. omeprazole (PRILOSEC) 40 mg capsule take 1 capsule by mouth every day before a meal ferrous sulfate (IRON) 325 mg (65 mg iron) tablet Take 325 mg by mouth. lidocaine-prilocaine (EMLA) 2.5-2.5 % cream Apply to affected area as needed. 1-2 grams to affected area TID PRN morphine (PF) 5 mg/mL in NaCl 0.9% 20 mL PF MORPHINE 5 MG/ML SIMPLE CONTINUOUS RATE 0.864 mg/ day PTM 0.0799 mg every 4 hours (max 6 doses per day) Total daily dose 1.3397mg dorzolamide-timolol (COSOPT) 22.3-6.8 mg/mL ophthalmic solution INSTILL 1 DROP IN LEFT EYE TWICE DAILY cholecalciferol (VITAMIN D3) 5,000 unit tab Take 2,000 Units by mouth once daily. Last dose 09/26/22 Lactobac no.41/Bifidobact no.7 (PROBIOTIC-10 ORAL) Take 1 tablet by mouth every morning. tolterodine ER (DETROL LA) 4 mg 24 hr capsule Take 4 mg by mouth every morning. Zinc 50 mg tab as needed. latanoprost (XALATAN) 0.005 % ophthalmic solution Use 1 Drop in both eyes daily at bedtime. lisinopril-hydroCHLOROthiazide (PRINZIDE, ZESTORETIC) 20-25 mg per tablet Take 1 tablet by mouth every morning. gabapentin (NEURONTIN) 300 mg capsule TAKE 1 CAPSULE BY MOUTH THREE TIMES DAILY simvastatin (ZOCOR) 20 mg tablet Take 20 mg by mouth daily at bedtime. brimonidine (ALPHAGAN) 0.2 % ophthalmic solution Use 1 Drop in the left eye twice daily. GLAUCOMA cyclobenzaprine (FLEXERIL) 10 mg tablet Take 10 mg by mouth three times daily as needed for muscle spasm. aspirin, enteric coated (ASPIRIN, ENTERIC COATED) 81 mg EC tablet Take 81 mg by mouth every morning. IS GOING TO CHECK WITH SURGEON AND PCP ABOUT WHEN NEEDS TO STOP ASA multivit with minerals/lutein (MULTIVITAMIN 50 PLUS ORAL) Last dose 09/26/22 folic acid 800 mcg tablet Take 800 mcg by mouth every morning. FROM PCP BLOOD NOT CLOT NORMAL PERSON No current facility-administered medications for this visit. PHYSICAL EXAMINATION: VIDEO EXAM: (performed via video enabled technology) GENERAL: alert and appropriate, in no distress, well-hydrated, well nourished and happy, smiling, interactive HEAD: normocephalic, no abnormality or lesion noted RESPIRATORY: breathing non-labored NEUROLOGIC: no obvious deficit ASSESSMENT: Patient is stable. Chronic pain is persistent. Medications are helping Emperatriz Ghosh to have an improved quality of life. Patient compliance with Opioid Contract: patient is compliant Encounter Diagnosis ICD-10-CM 1. Lumbar postlaminectomy syndrome M96.1 2. Acute arthropathy M12.9 3. DDD (degenerative disc disease), lumbar M51.36 4. Lumbar radiculopathy M54.16 5. Intervertebral disc disorder with radiculopathy of lumbar region M51.16 6. History of arthroplasty [Z98.890 (ICD-10-CM)] Z98.890 7. Other chronic pain G89.29 8. Implantable intrathecal infusion pump present Z96.89 9. Radiculitis, thoracic M54.14 10. Myalgia [M79.10 (ICD-10-CM)] M79.10 11. Radiculopathy, lumbar region [M54.16 (ICD-10-CM)] M54.16 PLAN: The patient understands the goal of our treatment is a reduction in pain and/or an improved level of functioning with activities of daily living. If at any time the patient does not feel the medications are helping them to achieve these goals, the medications may be discontinued. The patient reports a reduction in pain and/or an improved level of functioning with activities of daily living, denies any significant adverse effects, is compliant with the pain management agreement and there are no signs of medication misuse, abuse or diversion; therefore, the medications will be continued. The OARRS report has been reviewed and is consistent with the patient s medical history and medication intake Encouraged to do HEP. Continue ITP: PF MORPHINE by SIMPLE CONTINUOUS RATE 0.864 mg/ day PTM 0.0799 mg every 4 hours (max 6 doses per day) -ERD: 05/2029 Continue Gabapentin 300 mg tablet TID managed by Dr. Luda Ann Continue using Lido-Prilo cream.-call for a refill Continue SI joint stabilizer belt from [facility] and schedule LEFT SI JOINT INJECTION PRN-last done on 06/27/23-received 80% relief. Continue HEP Continue to follow-up with Dr. Soto (hip) prn Follow-up with Orthopedics for left carpal tunnel surgery 04/2023 Continue to follow-up with Research Chief Engineer Previously discussed changing to Dilaudid and adding Marcaine if higher dose of Morphine not effective. AVOID NSAIDS and spicy foods Follow-up on 07/31/[address] Juliana Nixon APRN.ANESTHESIOLOGIST documented in this encounter [facility] 06-12-[address] Lyn, Please build a case for Emperatriz so she can be added to your Jun 27 schedule at 11:05. Leida Medrano June 12, 2023 1:57 PM documented in this encounter [facility] 06-05-2023 Note Exam Date Time Procedure Performing Provider Status 06/05/23 10:31 AM VL Venous US/Doppler One Leg (for DVT). Auth (Verified) [facility] 08-21-2023 Instructions* Patient Instructions* Fatoumtaa Lyn DO - 04/15/2023 3:35 PM EDT Encouraged to do HEP. Continue ITP: PF MORPHINE by SIMPLE CONTINUOUS RATE 0.864 mg/ day. PTM 0.0799 mg BID. MARIBEL: 05/2029 Discontinue Percocet 7.5/325 mg - not taking Continue Gabapentin 300 mg tablet TID managed by Dr. Luda Ann Continue using Lido-Prilo cream.-call for a refill Continue SI joint stabilizer belt from [facility]. Continue HEP. Continue to follow-up with Dr. Soto (hip) prn Follow-up with Orthopedics for left carpal tunnel surgery 04/2023. Use Whipple from last CTS on the right. Continue to follow-up with Research Chief Engineer appointment for further evaluation of SOB Previously discussed changing to Dilaudid and adding Marcaine if higher dose of Morphine not effective. Follow-up in 3 months with ENVIRONMENTAL RESEARCH SCIENTIST AVOID NSAIDS and spicy foods [facility] History of Present illness Narrative* Fatoumata Lyn DO - 04/15/2023 3:15 PM EDTSummary: Pain Management follow-up DATE: April 15, 2023 Chief Complaint: LBP , thoracic pain, Si joint pain History of Present Illness: Emperatriz Ghosh is a 72 year old female [facility] a [facility] and/or management of their chronic pain. The patient was last seen in a virtual health visit on 02/13/2023 by Jaci Nixon NP, and the plan of care was as follows: The OARRS report has been reviewed and is consistent with the patient s medical history and medication intake. Encouraged to do HEP. Continue ITP Encouraged to do HEP. PF MORPHINE by SIMPLE CONTINUOUS RATE 0.864 mg/ day PTM 0.0799 mg every 4 hours (max 6 doses per day) Total daily dose 1.3397mg ERD-05/2029 Continue to wean off Percocet 7.5/325 mg Continue Gabapentin managed by Dr. Luda Ann- recommend starting to wean down Gabapentin Continue using Lido-Prilo cream.-call for a refill Continue SI joint stabilizer belt from [facility]. Continue HEP. Continue to follow-up with Dr. Soto (hip) prn Follow-up with Orthopedics for b/l carpal tunnel syndrome surgical evaluation. Previously discussed changing to Dilaudid and adding Marcaine if Morphine is not effective F/u in 2 months-ok to schedule with Dr. Lyn She had a [employer] pump implant on 09/28/2022 and is now down to 2 boluses per day d/t issues surrounding SOB. She is not scheduled to see the stand in until . She is not takingthe Percocet. She is taking the Gabapentin per PCP. She is taking the topical Lido-Prilo cream withbenefit and uses the SI joint stabilizer prn with minimal benefit. She also follows-up with GI doctor and takes Omeprazole with benefit. We discussed monitoring food intake and triggers for GERD and flare-ups. VAS: 5-6/10 Chief complaint: LBP , thoracic pain, SI joint pain Location: across her back Timing: constant Severity: varies Quality: dull, aching, nagging constant pain Radiation:up to her thoracic area Numbness: denies Burning: denies Tingling: denies Weakness: denies Falls: denies. Denies stumbling Alleviating Factors: analgesic therapy, rest-to some degree, injections, Compound cream Aggravating Factors: increased activity, prolonged walking, standing The patient denies any bowel or bladder dysfunction She gets 8 hours of sleep at night and wakes up feeling rested in the mornings. Since the last office visit the patients medical history has not changed. The patient denies any new diagnoses, hospital visits or ER visits. The patient is currently prescribed lido-prilo cream from our office. The medication is partially effective. The patient denies nausea, vomiting, constipation,rashes, drowsiness,weight gain, weight loss,dizziness,and fatigue. She is using the bolus twice a day, SOB is better. Swelling in her legs is gone. She sleeps good with the MS ITP but is uncomfortable when she tries to do anything. The OARRS report has been reviewed and is consistent with the patients medical history and medication intake. Last UDS: consistent Summary Report Date Value Ref Range Status 01/07/2023 FINAL Final Comment: Opiate Class, MS, Ur RFX Oxycodone Class, MS, Ur RFX Gabapentin, MS, Ur RFX Acetaminophen, MS, Ur RFX ToxAssure Flex 23, Ur Test Result Flag Units Drug Present Morphine 458 ng/mg creat Potential sources of morphine include administration of codeine or morphine, use of heroin, or ingestion of poppy seeds. Oxycodone 1770 ng/mg creat Oxymorphone 862 ng/mg creat Noroxycodone 1356 ng/mg creat Noroxymorphone 178 ng/mg creat Sources of oxycodone are scheduled prescription medications. Oxymorphone, noroxycodone, and noroxymorphone are expected metabolites of oxycodone. Oxymorphone is also available as a scheduled prescription medication. Gabapentin PRESENT Acetaminophen PRESENT Test Result Flag Units Ref Range Creatinine 50 mg/dL >=20 Declared Medications: Medication list was not provided. For clinical consultation, please call . No results found for: SUMMAR Chronic Pain Functional Assessment Tools Pain Disability Index: Pain Disability Index 02/13/2023 04/15/2023 Family/Home Responsibilities 1 6 Recreation 5 6 Social Activity 1 6 Occupation 2 6 Sexual Behavior 4 6 Self Care 0 No disability 6 Life Support Activity 0 No disability 6 PDI Score 13 42 Pain Enjoyment of Life and General Activity Scale (0-10): PEG: A Three-Item Scale Assessing Pain Intensity and Interference What number best describes your pain on average in the past week?: 6 (04/15/2023 3:00 PM) What number best describes how, during the past week, pain has interfered with your enjoyment of life?: 7 (04/15/2023 3:00 PM) What number best describes how, during the past week, pain has interfered with your general activity?: 7 (04/15/2023 3:00 PM) REVIEW OF SYSTEMS: GENERAL: No weight loss, malaise or fevers RESPIRATORY: Negative for cough, hemoptysis, wheezing, COPD, dyspnea or shortness of breath. CARDIOVASCULAR: Negative for chest pain, leg swelling, hypertension, CHF or palpitations GI: No nausea, vomiting, or diarrhea. 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 Back pain Essential hypertension HIGH CHOL GERD (gastroesophageal reflux disease) Hiatal hernia High cholesterol Incontinence of urine Joint pain Sleep apnea mild sleep apnea- no cpap used Wears glasses PAST SURGICAL HISTORY Procedure Laterality Date BLADDER SURGERY HX REPAIR AND LIFT CARPAL TUNNEL RIGHT WRIST Right 02/2023 HYSTERECTOMY HX VAGINAL INTRATHECAL PUMP PLACEMENT 09/28/2022 ORTHOPEDICS SURGERY HX HIP REPLACED TOTAL KNEE REPLACEMENT Right RIGHT TOTAL KNEE REPLACED FAMILY HISTORY Problem Relation Age of Onset Stroke Father Heart disease Father Kidney Disease Mother Osteoporosis Mother Diabetes Sister Breast Cancer Sister Social History Tobacco Use Smoking status: Never Passive exposure: Never Smokeless tobacco: Never Substance Use Topics Alcohol use: Not Currently Drug use: Not Currently Work Status: Disabled Allergies: No Known Allergies Current Outpatient Medications Medication Sig dorzolamide-timolol (COSOPT) 22.3-6.8 mg/mL ophthalmic solution INSTILL 1 DROP IN LEFT EYE TWICE DAILY pantoprazole DR (PROTONIX) 40 mg tablet Take 1 tablet by mouth every afternoon. dorzolamide (TRUSOPT) 2 % ophthalmic solution Use 1 Drop in eyes q 8 HR. morphine (PF) 5 mg/mL in NaCl 0.9% 20 mL PF MORPHINE 5 MG/ML SIMPLE CONTINUOUS RATE 0.864 mg/ day PTM 0.0799 mg every 4 hours (max 6 doses per day) Total daily dose 1.3397mg loratadine (CLARITIN) 10 mg tablet Take 10 mg by mouth once daily as needed. cholecalciferol (VITAMIN D3) 5,000 unit tab Take 2,000 Units by mouth once daily. Last dose 09/26/22 Lactobac no.41/Bifidobact no.7 (PROBIOTIC-10 ORAL) Take 1 tablet by mouth every morning. tolterodine ER (DETROL LA) 4 mg 24 hr capsule Take 4 mg by mouth every morning. Zinc 50 mg tab as needed. latanoprost (XALATAN) 0.005 % ophthalmic solution Use 1 Drop in both eyes daily at bedtime. lisinopril-hydroCHLOROthiazide (PRINZIDE, ZESTORETIC) 20-25 mg per tablet Take 1 tablet by mouth every morning. timolol maleate (TIMOPTIC) 0.5 % ophthalmic solution Use 1 Drop in the left eye twice daily. omeprazole (PRILOSEC) 20 mg capsule Take 20 mg by mouth every morning. meloxicam (MOBIC) 15 mg tablet Take 7.5 mg by mouth twice daily. gabapentin (NEURONTIN) 300 mg capsule TAKE 1 CAPSULE BY MOUTH THREE TIMES DAILY simvastatin (ZOCOR) 20 mg tablet Take 20 mg by mouth daily at bedtime. brimonidine (ALPHAGAN) 0.2 % ophthalmic solution Use 1 Drop in the left eye twice daily. GLAUCOMA cyclobenzaprine (FLEXERIL) 10 mg tablet Take 10 mg by mouth three times daily as needed for muscle spasm. aspirin, enteric coated (ASPIRIN, ENTERIC COATED) 81 mg EC tablet Take 81 mg by mouth every morning. IS GOING TO CHECK WITH SURGEON AND PCP ABOUT WHEN NEEDS TO STOP ASA multivit with minerals/lutein (MULTIVITAMIN 50 PLUS ORAL) Last dose 09/26/22 folic acid 800 mcg tablet Take 800 mcg by mouth every morning. FROM PCP BLOOD NOT CLOT NORMAL PERSON oxyCODONE-acetaminophen (PERCOCET) 7.5-325 mg tablet Take 1 tablet by mouth once daily as needed for pain for up to 30 days. lidocaine-prilocaine (EMLA) 2.5-2.5 % cream Apply to affected area as needed. 1- 2 grams to affectedarea TID PRN (Patient taking differently: Apply 1 application to affected area as needed. 1-2 gramsto affected area TID PRN) No current facility-administered medications for this visit. PHYSICAL EXAMINATION: Vitals: BP 140/86 Pulse 107 Resp 19 Ht 5' 0 (1.52m) Wt 224 lb (101.6kg) SpO2 99% BMI 43.75 kg/(m^2). GENERAL: Healthy, alert, no distress, cooperative, Smiling, morbidly obese SKIN: Skin color, texture, turgor normal. No rashes or lesions. HEENT: PERRL, EOMI, and normal dentition CARDIAC: Normal S1 and S2; no rubs, murmurs, or gallops LUNGS: Lungs clear to auscultation. Good diaphragmatic excursion. Musculoskeletal: Inspection of the spine reveals a midline lumbar scar, which is well healed and unremarkable. Lumbar range of motion is moderately restricted in all planes throughout. There is mild tenderness upon palpation of the lumbar spine, greatest on the right. There are no muscle spasms or trigger points noted in the paraspinal musculature or gluteal muscles. Muscle strength of the lower e xtremities is +5/5 bilaterally, weaker on the right. Great toe extension is intact bilaterally, weaker on the right. Patellar and Achilles reflexes are intact bilaterally, 2+ on the left, 1+ on the right. Straight leg raise is positive on the right. Sensation in the lower extremities is intact. There is slight tenderness to palpation of the right lateral hip/greater trochanter. ROM is significantly reduced on the right. Magdy s test is + on the right. + Left SI joint tenderness with palpation. Right leg length discrepancy noted ( 0.5 cm). Intrathecal pump implant noted right upper buttock area. Surgical incision sites are intact and well-healed. No signs of infection noted. ASSESSMENT: Lumbar postlaminectomy syndrome (primary encounter diagnosis) Acute arthropathy Ddd (degenerative disc disease), lumbar Lumbar radiculopathy Intervertebral disc disorder with radiculopathy of lumbar region Other chronic pain Radiculitis, thoracic Radiculopathy, lumbar region [m54.16 (icd-10-cm)] History of arthroplasty [z98.890 (icd-10-cm)] Implantable intrathecal infusion pump present Myalgia [m79.10 (icd-10-cm)] Myofascial pain syndrome Patient is stable. Chronic pain is persistent. Medications are helping Emperatriz Ghosh to have an improved quality of life. Patient compliance with Opioid Contract: patient is compliant PDMP website checked and validated. OARRS report reviewed on April 15, 2023 by Anju Bradshaw and is consistent with the patients medical history and medication intake. PLAN: The patient understands the goal of our treatment is a reduction in pain and/or an improved level of functioning with activities of daily living. If at any time the patient does not feel the medications are helping them to achieve these goals, the medications may be discontinued. The patient reports a reduction in pain and/or an improved level of functioning with activities of daily living, denies any significant adverse effects, is compliant with the pain management agreement and there are no signs of medication misuse, abuse or diversion; therefore, the medications will be continued. The documentation for this encounter was entered by Anju Bradshaw medical equipment repair technician for Dr. Fatoumata Lyn on April 15, 2023. I, Dr. Fatoumata Lyn, personally performed the services described in this documentation. All medical record entries made by the scribe were at my direction and in my presence. I have reviewed the chart and discharge instructions and agree that the record reflects my personal performance and is accurate and complete. Electronically Signed: Dr. Lyn. April 15, 2023. [facility] Miscellaneous Notes* Telephone Encounter - Colleen Leong RN - 03/27/2023 11:25 AM EDT Script faxed to [facility] with confirmation. Colleen Leong RN March 27, 2023 11:26 AM * Telephone Encounter - Fatoumata Lyn DO - 03/27/2023 11:03 AM EDT The following approved medication requests have been transmitted electronically. Requested Prescriptions Pending Prescriptions Disp Refills morphine (PF) 5 mg/mL in NaCl 0.9% 20 mL 20 mL 0 Sig: PF MORPHINE 5 MG/ML SIMPLE CONTINUOUS RATE 0.864 mg/ day PTM 0.0799 mg every 4 hours (max 6 doses per day) Total daily dose 1.3397mg Fatoumata Lyn DO * Telephone Encounter - Colleen Leong RN - 03/26/2023 2:42 PM EDT Patient phones requesting refills as follows: Requested Prescriptions Pending Prescriptions Disp Refills morphine (PF) 5 mg/mL in NaCl 0.9% 20 mL 20 mL 0 Sig: PF MORPHINE 5 MG/ML SIMPLE CONTINUOUS RATE 0.864 mg/ day PTM 0.0799 mg every 4 hours (max 6 doses per day) Total daily dose 1.3397mg Last UDS: Summary Report Date Value Ref Range Status 01/07/2023 FINAL Final Comment: Opiate Class, MS, Ur RFX Oxycodone Class, MS, Ur RFX Gabapentin, MS, Ur RFX Acetaminophen, MS, Ur RFX ToxAssure Flex 23, Ur Test Result Flag Units Drug Present Morphine 458 ng/mg creat Potential sources of morphine include administration of codeine or morphine, use of heroin, or ingestion of poppy seeds. Oxycodone 1770 ng/mg creat Oxymorphone 862 ng/mg creat Noroxycodone 1356 ng/mg creat Noroxymorphone 178 ng/mg creat Sources of oxycodone are scheduled prescription medications. Oxymorphone, noroxycodone, and noroxymorphone are expected metabolites of oxycodone. Oxymorphone is also available as a scheduled prescription medication. Gabapentin PRESENT Acetaminophen PRESENT Test Result Flag Units Ref Range Creatinine 50 mg/dL >=20 Declared Medications: Medication list was not provided. For clinical consultation, please call . @FLOW(,)@ Lab Results Component Value Date SUMM FINAL 01/07/2023 No results found for: SUMMAR Please review and advise. Colleen Leong RN documented in this encounterOhio[facility]07-27-2023 Miscellaneous Notes* Telephone Encounter - Jaci Nixon APRN.CNP - 03/21/2023 3:50 PM EDT I agree, we need the records regarding the surgery to prescribe narcotics. * Telephone Encounter - Kimberlee Mendenhall RN - 03/21/2023 2:40 PM EDT Pt lmom stating she is having carpel tunnel surgery and surgeon will not rx for post op pain, she is asking for us to manage, I called her back to find out when surgery is and to let her know that weneed records to rx, once records are available will you rx, please advise Kimberlee Mendenhall RN March 21, 2023 2:41 PM documented in this encounterOhiohealth [facility] Hospital06-21-2023 Instructions* Patient Instructions* Jaci Nixon APRN.CNP - 02/13/2023 5:06 PM EDT The OARRS report has been reviewed and is consistent with the patient s medical history and medication intake. Encouraged to do HEP. Continue ITP Encouraged to do HEP. PF MORPHINE by SIMPLE CONTINUOUS RATE 0.864 mg/ day PTM 0.0799 mg every 4 hours (max 6 doses per day) Total daily dose 1.3397mg Continue to wean off Percocet 7.5/325 mg Continue Gabapentin managed by Dr. Luda Ann- recommend starting to wean down Gabapentin Continue using Lido-Prilo cream.-call for a refill Continue SI joint stabilizer belt from [facility]. Continue HEP. Continue to follow-up with Dr. Soto (hip) prn Follow-up with Orthopedics for b/l carpal tunnel syndrome surgical evaluation. Previously discussed changing to Dilaudid and adding Marcaine if Morphine is not effective F/u in 2 months-ok to schedule with Dr. Riki Nixon APRN.CNP documented in this encounterOhiohealth Berger Hospital06-21-2023 History of Present illness Narrative* Jaci Nixon APRN.CNP - 02/13/2023 2:32 PM EDT This video visit was performed via [employer] video visit. Patient consented to receive health care services via virtual visit for this encounter Provider [facility] Patient Location: Patient Home or Place of Residence I have communicated my name and active licensure. The patient's identity and physical location wereverified at the time of this visit. Either the patient or their legal vendor representatives has been informed of the risks and benefits of -- and alternatives to -- treatment through a remote evaluation andconsents to proceed with the evaluation remotely. Chief Complaint: Pain History of Present Illness: Emperatriz Ghosh is a 72 year old year old female being seen at [facility] for a evaluation and/or management of their chronic pain. This patient has an office visit on 01/07/[address] Lyn. She is scheduled for a virtual visit today. She saw her PCP d/t SOB and an echocardiogram was done- she is waiting on the results. VAS: 0/10 Chief complaint: LBP Location: across her back Timing: varies with activity Severity: varies Quality: dull, aching Radiation:up to her thoracic area Numbness: denies Burning: denies Tingling: denies Weakness: denies Falls: denies Alleviating Factors: analgesic therapy, rest-to some degree, injections, Compound cream Aggravating Factors: increased activity, prolonged walking, standing The patient denies any bowel or bladder dysfunction Since the last office visit the patients medical history has not changed. The patient denies any new diagnoses, hospital visits or ER visits. The patient is currently prescribed ITP, Percocet and lido-prilo cream from our office. The last dose was taken at 12:10 p.m. The medications are partially effective. The patient denies nausea, vomiting, constipation,rashes, drowsiness,weight gain, weight loss,dizziness,and fatigue. Pt last took the Percocet yesterday. She is using the bolus twice a day, SOB is better. Swelling in her legs is gone. She sleeps good with the MS ITP but is uncomfortable when she tries to do anything. The OARRS report has been reviewed and is consistent with the patients medical history and medication intake. Last UDS: The UDS has been reviewed and is consistent with medications prescribed. Summary Report Date Value Ref Range Status 01/07/2023 FINAL Final Comment: Opiate Class, MS, Ur RFX Oxycodone Class, MS, Ur RFX Gabapentin, MS, Ur RFX Acetaminophen, MS, Ur RFX ToxAssure Flex 23, Ur Test Result Flag Units Drug Present Morphine 458 ng/mg creat Potential sources of morphine include administration of codeine or morphine, use of heroin, or ingestion of poppy seeds. Oxycodone 1770 ng/mg creat Oxymorphone 862 ng/mg creat Noroxycodone 1356 ng/mg creat Noroxymorphone 178 ng/mg creat Sources of oxycodone are scheduled prescription medications. Oxymorphone, noroxycodone, and noroxymorphone are expected metabolites of oxycodone. Oxymorphone is also available as a scheduled prescription medication. Gabapentin PRESENT Acetaminophen PRESENT Test Result Flag Units Ref Range Creatinine 50 mg/dL >=20 Declared Medications: Medication list was not provided. For clinical consultation, please call . No results found for: SUMMAR REVIEW OF SYSTEMS: GENERAL: No weight loss, malaise or fevers RESPIRATORY: Negative for cough, hemoptysis, wheezing, COPD, (+) shortness of breath at times. CARDIOVASCULAR: Negative for chest pain, leg swelling, hypertension, CHF or palpitations GI: No nausea, vomiting, or diarrhea. MUSCULOSKELETAL: (+) for joint pain back pain or muscle pain. 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 Back pain Essential hypertension HIGH CHOL GERD (gastroesophageal reflux disease) Hiatal hernia High cholesterol Incontinence of urine Joint pain Sleep apnea mild sleep apnea- no cpap used Wears glasses PAST SURGICAL HISTORY Procedure Laterality Date BLADDER SURGERY HX REPAIR AND LIFT HYSTERECTOMY HX VAGINAL INTRATHECAL PUMP PLACEMENT 09/28/2022 ORTHOPEDICS SURGERY HX HIP REPLACED TOTAL KNEE REPLACEMENT Right RIGHT TOTAL KNEE REPLACED FAMILY HISTORY Problem Relation Age of Onset Stroke Father Heart disease Father Kidney Disease Mother Osteoporosis Mother Diabetes Sister Breast Cancer Sister Social History Tobacco Use Smoking status: Never Passive exposure: Never Smokeless tobacco: Never Substance Use Topics Alcohol use: Not Currently Drug use: Not Currently Allergies: No Known Allergies Current Outpatient Medications Medication Sig oxyCODONE-acetaminophen (PERCOCET) 7.5-325 mg tablet Take 1 tablet by mouth once daily as needed for pain for up to 30 days. morphine (PF) 5 mg/mL in NaCl 0.9% 20 mL PF MORPHINE 5 MG/ML SIMPLE CONTINUOUS RATE 0.864 mg/ day PTM 0.0799 mg every 4 hours (max 6 doses per day) Total daily dose 1.3397mg loratadine (CLARITIN) 10 mg tablet Take 10 mg by mouth once daily as needed. nitrofurantoin monohydrate and macrocrystal (MACROBID) 100 mg capsule Take 100 mg by mouth twice daily. cholecalciferol (VITAMIN D3) 5,000 unit tab Take 2,000 Units by mouth once daily. Last dose 09/26/22 Lactobac no.41/Bifidobact no.7 (PROBIOTIC-10 ORAL) Take 1 tablet by mouth every morning. tolterodine ER (DETROL LA) 4 mg 24 hr capsule Take 4 mg by mouth every morning. Zinc 50 mg tab as needed. lidocaine-prilocaine (EMLA) 2.5-2.5 % cream Apply to affected area as needed. 1- 2 grams to affectedarea TID PRN (Patient taking differently: Apply 1 application to affected area as needed. 1-2 gramsto affected area TID PRN) dorzolamide (TRUSOPT) 2 % ophthalmic solution Use 1 Drop in the left eye twice daily. latanoprost (XALATAN) 0.005 % ophthalmic solution Use 1 Drop in both eyes daily at bedtime. lisinopril-hydroCHLOROthiazide (PRINZIDE, ZESTORETIC) 20-25 mg per tablet Take 1 tablet by mouth every morning. timolol maleate (TIMOPTIC) 0.5 % ophthalmic solution Use 1 Drop in the left eye twice daily. omeprazole (PRILOSEC) 20 mg capsule Take 20 mg by mouth every morning. meloxicam (MOBIC) 15 mg tablet Take 7.5 mg by mouth twice daily. gabapentin (NEURONTIN) 300 mg capsule TAKE 1 CAPSULE BY MOUTH THREE TIMES DAILY simvastatin (ZOCOR) 20 mg tablet Take 20 mg by mouth daily at bedtime. brimonidine (ALPHAGAN) 0.2 % ophthalmic solution Use 1 Drop in the left eye twice daily. GLAUCOMA cyclobenzaprine (FLEXERIL) 10 mg tablet Take 10 mg by mouth three times daily as needed for muscle spasm. aspirin, enteric coated (ASPIRIN, ENTERIC COATED) 81 mg EC tablet Take 81 mg by mouth every morning. IS GOING TO CHECK WITH SURGEON AND PCP ABOUT WHEN NEEDS TO STOP ASA multivit with minerals/lutein (MULTIVITAMIN 50 PLUS ORAL) Last dose 09/26/22 folic acid 800 mcg tablet Take 800 mcg by mouth every morning. FROM PCP BLOOD NOT CLOT NORMAL PERSON No current facility-administered medications for this visit. PHYSICAL EXAMINATION: VIDEO EXAM: (performed via video enabled technology) GENERAL: alert and appropriate, in no distress, well-hydrated, well nourished and happy, smiling, interactive HEAD: normocephalic, no abnormality or lesion noted RESPIRATORY: breathing non-labored NEUROLOGIC: no obvious deficit ASSESSMENT: Patient is stable. Chronic pain is persistent. Medications are helping Emperatriz Ghosh to have an improved quality of life. Patient compliance with Opioid Contract: patient is compliant Encounter Diagnosis ICD-10-CM 1. Lumbar postlaminectomy syndrome M96.1 2. Acute arthropathy M12.9 3. Lumbar radiculopathy M54.16 4. DDD (degenerative disc disease), lumbar M51.36 5. Intervertebral disc disorder with radiculopathy of lumbar region M51.16 6. Other chronic pain [G89.29 (ICD-10-CM)] G89.29 7. Radiculitis, thoracic M54.14 8. Radiculopathy, lumbar region [M54.16 (ICD-10-CM)] M54.16 9. History of arthroplasty [Z98.890 (ICD-10-CM)] Z98.890 10. Implantable intrathecal infusion pump present Z96.89 11. Myalgia [M79.10 (ICD-10-CM)] M79.10 PLAN: The patient understands the goal of our treatment is a reduction in pain and/or an improved level of functioning with activities of daily living. If at any time the patient does not feel the medications are helping them to achieve these goals, the medications may be discontinued. The patient reports a reduction in pain and/or an improved level of functioning with activities of daily living, denies any significant adverse effects, is compliant with the pain management agreement and there are no signs of medication misuse, abuse or diversion; therefore, the medications will be continued. The OARRS report has been reviewed and is consistent with the patient s medical history and medication intake. The OARRS report has been reviewed and is consistent with the patient s medical history and medication intake. Encouraged to do HEP. Continue ITP Encouraged to do HEP. PF MORPHINE by SIMPLE CONTINUOUS RATE 0.864 mg/ day PTM 0.0799 mg every 4 hours (max 6 doses per day) Total daily dose 1.3397mg ERD-05/2029 Continue to wean off Percocet 7.5/325 mg Continue Gabapentin managed by Dr. Luda Ann- recommend starting to wean down Gabapentin Continue using Lido-Prilo cream.-call for a refill Continue SI joint stabilizer belt from [facility]. Continue HEP. Continue to follow-up with Dr. Soto (hip) prn Follow-up with Orthopedics for b/l carpal tunnel syndrome surgical evaluation. Previously discussed changing to Dilaudid and adding Marcaine if Morphine is not effective F/u in 2 months-ok to schedule with Dr. Riki Nixon APRN.ANESTHESIOLOGIST documented in this encounterOhio[facility] Hospital06-05-2023 Miscellaneous Notes* Telephone Encounter - Colleen Leong RN - 01/28/2023 1:18 PM EDT Script faxed to [facility] with confirmation. Colleen Leong RN January 28, 2023 1:18 PM * Telephone Encounter - Fatoumata Lyn DO - 01/28/2023 12:20 PM EDT The following approved medication requests have been transmitted electronically. Requested Prescriptions Pending Prescriptions Disp Refills morphine (PF) 5 mg/mL in NaCl 0.9% 20 mL 20 mL 0 Sig: PF MORPHINE 5 MG/ML SIMPLE CONTINUOUS RATE 0.864 mg/ day PTM 0.0799 mg every 4 hours (max 6 doses per day) Total daily dose 1.3397mg Fatoumata Lyn DO * Telephone Encounter - Colleen Leong RN - 01/23/2023 2:42 PM EDT Patient phones requesting refills as follows: Requested Prescriptions Pending Prescriptions Disp Refills morphine (PF) 5 mg/mL in NaCl 0.9% 20 mL 20 mL 0 Sig: PF MORPHINE 5 MG/ML SIMPLE CONTINUOUS RATE 0.864 mg/ day PTM 0.0799 mg every 4 hours (max 6 doses per day) Total daily dose 1.3397mg Last UDS: Summary Report Date Value Ref Range Status 01/07/2023 FINAL Final Comment: Opiate Class, MS, Ur RFX Oxycodone Class, MS, Ur RFX Gabapentin, MS, Ur RFX Acetaminophen, MS, Ur RFX ToxAssure Flex 23, Ur Test Result Flag Units Drug Present Morphine 458 ng/mg creat Potential sources of morphine include administration of codeine or morphine, use of heroin, or ingestion of poppy seeds. Oxycodone 1770 ng/mg creat Oxymorphone 862 ng/mg creat Noroxycodone 1356 ng/mg creat Noroxymorphone 178 ng/mg creat Sources of oxycodone are scheduled prescription medications. Oxymorphone, noroxycodone, and noroxymorphone are expected metabolites of oxycodone. Oxymorphone is also available as a scheduled prescription medication. Gabapentin PRESENT Acetaminophen PRESENT Test Result Flag Units Ref Range Creatinine 50 mg/dL >=20 Declared Medications: Medication list was not provided. For clinical consultation, please call . @FLOW([id number])@ Lab Results Component Value Date SUMM FINAL 01/07/2023 No results found for: SUMMAR Please review and advise. Colleen Leong RN documented in this encounterOhio[facility]06-02-2023 Miscellaneous Notes* Telephone Encounter - Rosa Villanueva RN - 01/25/2023 11:44 AM EDTSummary: careline message regarding percocet Pt contacted, acknowledges below, and is requesting percocet refill. Chart review done and pt states that she has been weaning from percocet but is need for another 'script. Please advise medication POC. Rosa Villanueva RN January 25, 2023 11:48 AM * Telephone Encounter - Kimberlee Mendenhall RN - 01/25/2023 9:32 AM EDT There will be no further pump change. She needs to see PCP to work-up SOB before any further changes are made. I told her to cut back on using her PTM as well. Per Dr Lyn Pt notified, pt states she has cut back from 5 to 3 on the ptm and that is why she has pain, she said she has been evaluated for SOB, it was last May, I advised per the above that pcp should atleast be notified and go from there, I did ask the pt to have dr share records with our office. Kimberlee Mendenhall RN January 25, 2023 9:55 AM * Telephone Encounter - Yue Ramirez RN - 01/24/2023 10:53 AM EDT Pt called to ask for either a dose change or medication change in her pump. She noted that the increase done on 01/07/23 at her apt has not helped. She is still using the oxycodone daily. She also said she is still having shortness of breath. Per pt the SOB comes and goes but today has been worse. (DURGA noted possibly changing to dilaudid and adding marcaine if the morphine is ineffective.) Please advise. Yue Ramirez RN January 24, 2023 11:00 AM documented in this encounterOhiohealth [facility] Hospital05-15-2023 Instructions* Patient Instructions* Fatoumata Lyn DO - 01/07/2023 11:43 AM EDT Encouraged to do HEP. PF MORPHINE by SIMPLE CONTINUOUS RATE 0.864 mg/ day. Increase by 20% PTM to 0.08 mg every 4 hours (max 3 doses per day) Continue to wean off Percocet 7.5/325 mg Continue Gabapentin managed by Dr. Luda Ann- recommend starting to wean down Gabapentin Continue using Lido-Prilo cream.-call for a refill Continue SI joint stabilizer belt from [facility]. Continue HEP. Continue to follow-up with Dr. Soto (hip) prn Follow-up with Orthopedics for b/l carpal tunnel syndrome surgical evaluation. Follow-up in 4-6 weeks with ENVIRONMENTAL RESEARCH SCIENTIST Order UDS Discussed changing to Dilaudid and adding Marcaine if Morphine is not effective. documented in this encounterOhiohealth Berger Hospital05-15-2023 History of Present illness Narrative* Fatoumata Lyn DO - 01/07/2023 11:00 AM EDTSummary: Pain Management follow-up DATE: January 07, 2023 Chief Complaint: Low back pain History of Present Illness: Emperatriz Ghosh is a 72 year old [facility] and/or management of their chronic pain. The patient was last seen in a virtual health visit on 12/12/2022 by Jaci Nixon NP, and the plan of care was as follows: The OARRS report has been reviewed and is consistent with the patient s medical history and medication intake. Encouraged to do HEP. Continue ITP -PF MORPHINE 5 MG/ML SIMPLE CONTINUOUS RATE 0.864 mg/ day PTM 0.07 mg every 4 hours (max 6 doses per day) Total daily dose 1.284mg Continue Percocet 7.5/325 mg every day-call for a refill Continue Gabapentin managed by Dr. Luda Ann- recommend starting to wean down Gabapentin Continue using Lido-Prilo cream.-call for a refill Continue SI joint stabilizer belt from [facility]. Continue HEP. Continue to follow-up with Dr. Soto (hip) prn Please send the handicap placard order to the pt.'s home Referral was previously ordered physical therapy-we will revisit next month Follow-up in 4 weeks She had [employer] Intrathecal Pain pump implant on 09/28/2022 with overall 30% relief thus far. She said that the current dose of morphine is helpful for her lower back pain, but not her upper/middle back pain. She also states she had SOB after she decided to give herself 5 bolus in a day. She is still only taking 1 Percocet per day. We discussed discontinuing this medication. We discussed only increasing the PTM by 20% and dropping her to 3 boluses daily. We discussed other options including Dilaudid with additional Marcaine if she continues to have side effects with the morphine. She also thinks her leg swelling and urinary incontinence has been related to the intrathecal pump. She was previ ously told to wean off the Gabapentin with her PCP. She has not yet discussed this with Dr. Ann. She has not followed up with PT that was previously ordered due to intrathecal pump changes. We discussed that PT would increase her pain level at this time. She states she has B/L carpal tunnel syndrome with intermittent flare-ups. She had EMG/NCV studies several years ago. She was told that her left hand was worse than her right hand. VAS: 7/10 Chief complaint: LBP Location: across her back Timing: varies with activity Severity: varies Quality: dull, aching Radiation:up to her thoracic area Numbness: denies Burning: denies Tingling: denies Weakness: denies Falls: denies Alleviating Factors: analgesic therapy, rest-to some degree, injections, Compound cream Aggravating Factors: increased activity, prolonged walking, standing The patient denies any bowel dysfunction. She has stress incontinence. Since the last office visit the patients medical history has not changed. The patient denies any new diagnoses, hospital visits or ER visits. The patient is currently prescribed Percocet and lido-prilo cream from our office. The medications are partially effective. The patient denies nausea, vomiting, constipation,rashes, drowsiness,weightgain, weight loss,dizziness,and fatigue. Pt is down to taking 1 Percocet a day. The OARRS report has been reviewed and is consistent with the patients medical history and medication intake. Last UDS: Consistent Summary Report Date Value Ref Range Status 08/22/2022 FINAL Final Comment: Opiate Class, MS, Ur RFX Oxycodone Class, MS, Ur RFX Gabapentin, MS, Ur RFX Acetaminophen, MS, Ur RFX ToxAssure Flex 23, Ur Test Result Flag Units Drug Present Oxycodone 2008 ng/mg creat Oxymorphone 1594 ng/mg creat Noroxycodone 2715 ng/mg creat Noroxymorphone 480 ng/mg creat Sources of oxycodone are scheduled prescription medications. Oxymorphone, noroxycodone, and noroxymorphone are expected metabolites of oxycodone. Oxymorphone is also available as a scheduled prescription medication. Gabapentin PRESENT Acetaminophen PRESENT Test Result Flag Units Ref Range Creatinine 96 mg/dL >=20 Declared Medications: Medication list was not provided. For clinical consultation, please call . No results found for: SUMMAR Chronic Pain Functional Assessment Tools Pain Disability Index: Pain Disability Index 12/11/2022 01/07/2023 Family/Home Responsibilities 5 6 Recreation 5 6 Social Activity 3 6 Occupation 5 6 Sexual Behavior 2 6 Self Care 1 6 Life Support Activity 0 No disability 6 PDI Score 21 42 Pain Enjoyment of Life and General Activity Scale (0-10): PEG: A Three-Item Scale Assessing Pain Intensity and Interference What number best describes your pain on average in the past week?: 5 (01/07/2023 11:00 AM) What number best describes how, during the past week, pain has interfered with your enjoyment of life?: 5 (01/07/2023 11:00 AM) What number best describes how, during the past week, pain has interfered with your general activity?: 5 (01/07/2023 11:00 AM) REVIEW OF SYSTEMS: GENERAL: No weight loss, malaise or fevers RESPIRATORY: Negative for cough, hemoptysis, wheezing, COPD, dyspnea or shortness of breath. CARDIOVASCULAR: Negative for chest pain, leg swelling, hypertension, CHF or palpitations GI: No nausea, vomiting, or diarrhea. 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 Back pain Essential hypertension HIGH CHOL GERD (gastroesophageal reflux disease) Hiatal hernia High cholesterol Incontinence of urine Joint pain Sleep apnea mild sleep apnea- no cpap used Wears glasses PAST SURGICAL HISTORY Procedure Laterality Date BLADDER SURGERY HX REPAIR AND LIFT HYSTERECTOMY HX VAGINAL ORTHOPEDICS SURGERY HX HIP REPLACED TOTAL KNEE REPLACEMENT Right RIGHT TOTAL KNEE REPLACED FAMILY HISTORY Problem Relation Age of Onset Stroke Father Heart disease Father Kidney Disease Mother Osteoporosis Mother Diabetes Sister Breast Cancer Sister Social History Tobacco Use Smoking status: Never Passive exposure: Never Smokeless tobacco: Never Substance Use Topics Alcohol use: Not Currently Drug use: Not Currently Work Status: disabled Allergies: No Known Allergies Current Outpatient Medications Medication Sig loratadine (CLARITIN) 10 mg tablet Take 10 mg by mouth once daily as needed. nitrofurantoin monohydrate and macrocrystal (MACROBID) 100 mg capsule Take 100 mg by mouth twice daily. oxyCODONE-acetaminophen (PERCOCET) 7.5-325 mg tablet Take 1 tablet by mouth once daily as needed for pain for up to 30 days. morphine (PF) 5 mg/mL in NaCl 0.9% 20 mL PF MORPHINE 5 MG/ML ( INCREASE DOSE) SIMPLE CONTINUOUS RATE 0.864 mg/ day PTM 0.07 mg every 4 hours (max 6 doses per day) Total daily dose 1.284mg cholecalciferol (VITAMIN D3) 5,000 unit tab Take 2,000 Units by mouth once daily. Last dose 09/26/22 Lactobac no.41/Bifidobact no.7 (PROBIOTIC-10 ORAL) Take 1 tablet by mouth every morning. tolterodine ER (DETROL LA) 4 mg 24 hr capsule Take 4 mg by mouth every morning. Zinc 50 mg tab as needed. dorzolamide (TRUSOPT) 2 % ophthalmic solution Use 1 Drop in the left eye twice daily. latanoprost (XALATAN) 0.005 % ophthalmic solution Use 1 Drop in both eyes daily at bedtime. lisinopril-hydroCHLOROthiazide (PRINZIDE, ZESTORETIC) 20-25 mg per tablet Take 1 tablet by mouth every morning. timolol maleate (TIMOPTIC) 0.5 % ophthalmic solution Use 1 Drop in the left eye twice daily. omeprazole (PRILOSEC) 20 mg capsule Take 20 mg by mouth every morning. meloxicam (MOBIC) 15 mg tablet Take 7.5 mg by mouth twice daily. gabapentin (NEURONTIN) 300 mg capsule TAKE 1 CAPSULE BY MOUTH THREE TIMES DAILY simvastatin (ZOCOR) 20 mg tablet Take 20 mg by mouth daily at bedtime. brimonidine (ALPHAGAN) 0.2 % ophthalmic solution Use 1 Drop in the left eye twice daily. GLAUCOMA cyclobenzaprine (FLEXERIL) 10 mg tablet Take 10 mg by mouth three times daily as needed for muscle spasm. aspirin, enteric coated (ASPIRIN, ENTERIC COATED) 81 mg EC tablet Take 81 mg by mouth every morning. IS GOING TO CHECK WITH SURGEON AND PCP ABOUT WHEN NEEDS TO STOP ASA multivit with minerals/lutein (MULTIVITAMIN 50 PLUS ORAL) Last dose 09/26/22 folic acid 800 mcg tablet Take 800 mcg by mouth every morning. FROM PCP BLOOD NOT CLOT NORMAL PERSON lidocaine-prilocaine (EMLA) 2.5-2.5 % cream Apply to affected area as needed. 1- 2 grams to affectedarea TID PRN (Patient taking differently: Apply 1 application to affected area as needed. 1-2 gramsto affected area TID PRN) No current facility-administered medications for this visit. PHYSICAL EXAMINATION: Vitals: BP 142/85 Pulse 98 Resp 19 Ht 5' 1.2 (1.55m) Wt 232 lb (105.2kg) SpO2 94% BMI 43.58 kg/(m^2). GENERAL: Healthy, alert, no distress, cooperative, Smiling, morbidly obese SKIN: Skin color, texture, turgor normal. No rashes or lesions. HEENT: PERRL, EOMI, and normal dentition CARDIAC: Normal S1 and S2; no rubs, murmurs, or gallops LUNGS: Lungs clear to auscultation. Good diaphragmatic excursion. Musculoskeletal: Inspection of the spine reveals a midline lumbar scar, which is well healed and unremarkable. Lumbar range of motion is moderately restricted in all planes throughout. There is mild tenderness upon palpation of the lumbar spine, greatest on the right. There are no muscle spasms or trigger points noted in the paraspinal musculature or gluteal muscles. Muscle strength of the lower e xtremities is +5/5 bilaterally, weaker on the right. Great toe extension is intact bilaterally, weaker on the right. Patellar and Achilles reflexes are intact bilaterally, 2+ on the left, 1+ on the right. Straight leg raise is positive on the right. Sensation in the lower extremities is intact. There is slight tenderness to palpation of the right lateral hip/greater trochanter. ROM is significantly reduced on the right. Magdy s test is + on the right. + Left SI joint tenderness with palpation. Right leg length discrepancy noted ( 0.5 cm). Intrathecal pump implant noted right upper buttock area. Surgical incision sites are intact and well-healed. No signs of infection noted. ASSESSMENT: Lumbar postlaminectomy syndrome (primary encounter diagnosis) Acute arthropathy History of arthroplasty [z98.890 (icd-10-cm)] Lumbar radiculopathy Ddd (degenerative disc disease), lumbar Intervertebral disc disorder with radiculopathy of lumbar region Myalgia [m79.10 (icd-10-cm)] Radiculitis, thoracic Other chronic pain [g89.29 (icd-10-cm)] Radiculopathy, lumbar region [m54.16 (icd-10-cm)] Implantable intrathecal infusion pump present High risk medication use Chronic pain syndrome Myofascial pain syndrome Patient is stable. Chronic pain is persistent. Medications are helping Emperatriz Ghosh to have an improved quality of life. Patient compliance with Opioid Contract: patient is compliant PDMP website checked and validated. OARRS report reviewed on January 07, 2023 by Anju Bradshaw and is consistent with the patients medical history and medication intake. PLAN: The patient understands the goal of our treatment is a reduction in pain and/or an improved level of functioning with activities of daily living. If at any time the patient does not feel the medications are helping them to achieve these goals, the medications may be discontinued. The patient reports a reduction in pain and/or an improved level of functioning with activities of daily living, denies any significant adverse effects, is compliant with the pain management agreement and there are no signs of medication misuse, abuse or diversion; therefore, the medications will be continued. The documentation for this encounter was entered by Anju Bradshaw, medical equipment repair technician for Dr. Fatoumata Lyn on January 07, 2023. I, Dr. Fatoumata Lyn, personally performed the services described in this documentation. All medical record entries made by the scribe were at my direction and in my presence. I have reviewed the chart and discharge instructions and agree that the record reflects my personal performance and is accurate and complete. Electronically Signed: Dr. Lyn. January 07, 2023. documented in this encounterOhiohealth [facility]04-11-2023 Miscellaneous Notes* Telephone Encounter - Camila Dubon RN - 12/04/2022 8:29 AM EDT Patient notified. Order faxed. Camila Dubon RN * Telephone Encounter - Camila Dubon RN - 12/03/2022 1:27 PM EDT Patient left a message requesting an increase of her ITP dosing during her upcoming refill on 12/05.Please advise. Camila Dubon RN documented in this encounterOhiohealth Berger Hospital03-29-2023 Miscellaneous Notes* Telephone Encounter - Fatoumata Lyn DO - 11/21/2022 10:32 AM EDT The following approved medication requests have been transmitted electronically. Requested Prescriptions Pending Prescriptions Disp Refills morphine (PF) 5 mg/mL in NaCl 0.9% 20 mL 20 mL 0 Sig: PF MORPHINE 5 MG/ML SIMPLE CONTINUOUS RATE 0.7201 mg/ day Activate PTM 0.05 mg every 4 hours (max 6 doses per day) Total daily dose 1.0169mg Fatoumata Lyn DO * Telephone Encounter - Yue Ramirez RN - 11/20/2022 1:54 PM EDT Patient phones requesting refills as follows: Requested Prescriptions Pending Prescriptions Disp Refills morphine (PF) 5 mg/mL in NaCl 0.9% 20 mL 20 mL 0 Sig: PF MORPHINE 5 MG/ML SIMPLE CONTINUOUS RATE 0.7201 mg/ day Activate PTM 0.05 mg every 4 hours (max 6 doses per day) Total daily dose 1.0169mg Last UDS: Summary Report Date Value Ref Range Status 08/22/2022 FINAL Final Comment: Opiate Class, MS, Ur RFX Oxycodone Class, MS, Ur RFX Gabapentin, MS, Ur RFX Acetaminophen, MS, Ur RFX ToxAssure Flex 23, Ur Test Result Flag Units Drug Present Oxycodone 2008 ng/mg creat Oxymorphone 1594 ng/mg creat Noroxycodone 2715 ng/mg creat Noroxymorphone 480 ng/mg creat Sources of oxycodone are scheduled prescription medications. Oxymorphone, noroxycodone, and noroxymorphone are expected metabolites of oxycodone. Oxymorphone is also available as a scheduled prescription medication. Gabapentin PRESENT Acetaminophen PRESENT Test Result Flag Units Ref Range Creatinine 96 mg/dL >=20 Declared Medications: Medication list was not provided. For clinical consultation, please call . @FLOW([id number])@ Lab Results Component Value Date SUMM FINAL 08/22/2022 No results found for: SUMMAR Please review and advise. Yue Ramirez RN documented in this encounterOhiohealth Berger Hospital03-07-2023 Miscellaneous Notes* Telephone Encounter - Fatoumata Lyn DO - 10/30/2022 9:16 PM EST The following approved medication requests have been transmitted electronically. Requested Prescriptions Pending Prescriptions Disp Refills oxyCODONE-acetaminophen (PERCOCET) 7.5-325 mg tablet 90 tablet 0 Sig: Take 1 tablet by mouth three times daily as needed for pain for up to 30 days. Fatoumata Lyn DO * Telephone Encounter - Yue Ramirez RN - 10/30/2022 4:08 PM EST Patient phones requesting refills as follows: Requested Prescriptions Pending Prescriptions Disp Refills oxyCODONE-acetaminophen (PERCOCET) 7.5-325 mg tablet 90 tablet 0 Sig: Take 1 tablet by mouth three times daily as needed for pain for up to 30 days. Last UDS: Summary Report Date Value Ref Range Status 08/22/2022 FINAL Final Comment: Opiate Class, MS, Ur RFX Oxycodone Class, MS, Ur RFX Gabapentin, MS, Ur RFX Acetaminophen, MS, Ur RFX ToxAssure Flex 23, Ur Test Result Flag Units Drug Present Oxycodone 2008 ng/mg creat Oxymorphone 1594 ng/mg creat Noroxycodone 2715 ng/mg creat Noroxymorphone 480 ng/mg creat Sources of oxycodone are scheduled prescription medications. Oxymorphone, noroxycodone, and noroxymorphone are expected metabolites of oxycodone. Oxymorphone is also available as a scheduled prescription medication. Gabapentin PRESENT Acetaminophen PRESENT Test Result Flag Units Ref Range Creatinine 96 mg/dL >=20 Declared Medications: Medication list was not provided. For clinical consultation, please call . @FLOW(,)@ Lab Results Component Value Date SUMM FINAL 08/22/2022 No results found for: SUMMAR Please review and advise. Yue Ramirez RN documented in this encounterOhiohealth Berger Hospital03-06-2023 Instructions* Patient Instructions* Fatoumata Lyn DO - 10/29/2022 10:55 AM EST The OARRS report has been reviewed and is consistent with the patient s medical history and medication intake. Encouraged to do HEP. Wean down on Percocet 7.5/325 mg and Gabapentin 2-4 weeks after PTM is activated. PTM appointment on 10/31/2022. Continue Gabapentin managed by Dr. Luda Ann Continue using Lido-Prilo cream.-call for a refill Continue SI joint stabilizer belt from [facility]. Continue HEP. Continue to follow-up with Dr. Soto (hip) prn Referral for physical therapy Follow-up in 4-6 weeks with ENVIRONMENTAL RESEARCH SCIENTIST. documented in this encounterOhiohealth Berger Hospital03-06-2023 History of Present illness Narrative* Fatoumata Lyn DO - 10/29/2022 10:45 AM ESTSummary: Pain Management follow-up DATE: October 29, 2022 Chief Complaint: Low back pain History of Present Illness: Emperatriz Ghosh is a 72 year [facility] and/or management of their chronic pain. Patient was last seen in the office on 10/02/[address] Lyn and the plan of care was as follows. The OARRS report has been reviewed and is consistent with the patient s medical history and medication intake. Encouraged to do HEP. Start to wean down on Percocet 7.5/325 mg. The PTM will be activated in 4 to 5 weeks. Patient understands goal is to discontinue Percocet and gabapentin after pump implant. Continue Gabapentin managed by Dr. Luda Ann Continue using Lido-Prilo cream.-call for a refill Continue SI joint stabilizer belt from [facility]. Continue HEP. Follow-up with Dr. Soto (hip) prn Do not wet surgical site. Continue with sponge baths until Saturday. Transition over to taking showers on Saturday. Referral to [facility] for ITP maintenance sent in today Discussed starting physical therapy in 4 to 6 weeks Follow-up in 4-[address] Lyn in the office Today the patient reports pain above above her waist and the pain below her waist has mostly resolved. She had [employer] intrathecal pain pump implant on 09/28/2022 with 50% relief at this time. She was able to walk outside to her mailbox after the implant for at least 25 minutes which she was not able to do prior to her pump implant. She has an upcoming PTM activation on 10/31/2022. She recently went to the ER for SOB on 10/27/2022. She denies that SOB is a side effect of the Augmentin medication she is taking for UTI. Chest x-ray was done and was negative. Her chief complaint on today's evaluation is primarily thoracic pain which has reduced in intensity since the pump implant. VAS: 0/10 sitting down. With activity pain level is 7-8/10. Chief complaint: LBP Location: across her back Timing: varies with activity Severity: varies Quality: dull and aching, reduced intensity since pump implant. Radiation: denies Numbness: denies Burning: denies Tingling: denies Weakness: yes, due to being sedentary Falls: denies Nausea after surgery which has now resolved Alleviating Factors: analgesic therapy, rest-to some degree, injections, Compound cream Aggravating Factors: increased activity, prolonged walking, standing The patient's constipation has resolved. Denies any bladder dysfunction. She gets about 7-8 hours of sleep at nights and feels rested in the mornings. Last UDS: consistent Summary Report Date Value Ref Range Status 08/22/2022 FINAL Final Comment: Opiate Class, MS, Ur RFX Oxycodone Class, MS, Ur RFX Gabapentin, MS, Ur RFX Acetaminophen, MS, Ur RFX ToxAssure Flex 23, Ur Test Result Flag Units Drug Present Oxycodone 2008 ng/mg creat Oxymorphone 1594 ng/mg creat Noroxycodone 2715 ng/mg creat Noroxymorphone 480 ng/mg creat Sources of oxycodone are scheduled prescription medications. Oxymorphone, noroxycodone, and noroxymorphone are expected metabolites of oxycodone. Oxymorphone is also available as a scheduled prescription medication. Gabapentin PRESENT Acetaminophen PRESENT Test Result Flag Units Ref Range Creatinine 96 mg/dL >=20 Declared Medications: Medication list was not provided. For clinical consultation, please call . No results found for: SUMMAR Chronic Pain Functional Assessment Tools Pain Disability Index: Pain Disability Index 10/02/2022 10/29/2022 Family/Home Responsibilities 7 8 Recreation 7 8 Social Activity 7 8 Occupation 7 8 Sexual Behavior 7 8 Self Care 7 8 Life Support Activity 7 8 PDI Score 49 56 Pain Enjoyment of Life and General Activity Scale (0-10): PEG: A Three-Item Scale Assessing Pain Intensity and Interference What number best describes your pain on average in the past week?: 8 (10/29/2022 10:00 AM) What number best describes how, during the past week, pain has interfered with your enjoyment of life?: 8 (10/29/2022 10:00 AM) What number best describes how, during the past week, pain has interfered with your general activity?: 8 (10/29/2022 10:00 AM) REVIEW OF SYSTEMS: GENERAL: No weight loss, malaise or fevers RESPIRATORY: Negative for cough, hemoptysis, wheezing, COPD, dyspnea or shortness of breath. CARDIOVASCULAR: Negative for chest pain, leg swelling, hypertension, CHF or palpitations GI: No nausea, vomiting, or diarrhea. MUSCULOSKELETAL: Negative for joint pain or swelling, back pain or muscle pain. 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 Back pain Essential hypertension HIGH CHOL GERD (gastroesophageal reflux disease) Hiatal hernia High cholesterol Incontinence of urine Joint pain Sleep apnea mild sleep apnea- no cpap used Wears glasses PAST SURGICAL HISTORY Procedure Laterality Date BLADDER SURGERY HX REPAIR AND LIFT HYSTERECTOMY HX VAGINAL ORTHOPEDICS SURGERY HX HIP REPLACED TOTAL KNEE REPLACEMENT Right RIGHT TOTAL KNEE REPLACED FAMILY HISTORY Problem Relation Age of Onset Stroke Father Heart disease Father Kidney Disease Mother Osteoporosis Mother Diabetes Sister Breast Cancer Sister Social History Tobacco Use Smoking status: Never Passive exposure: Never Smokeless tobacco: Never Substance Use Topics Alcohol use: Not Currently Drug use: Not Currently Work Status: n/a Allergies: No Known Allergies Current Outpatient Medications Medication Sig nystatin-triamcinolone (MYCOLOG II) cream apply 1 gram to the affected areas NEEDED TWICE DAILY morphine (PF) 5 mg/mL in NaCl 0.9% 20 mL PF MORPHINE 5 MG/ML SIMPLE CONTINUOUS RATE 0.03 MG/HOUR Activate PTM 0.05 mg every 4 hours (max 6 doses per day) Patient to establish care with [facility] nursing services cholecalciferol (VITAMIN D3) 5,000 unit tab Take 2,000 Units by mouth once daily. Last dose 09/26/22 Lactobac no.41/Bifidobact no.7 (PROBIOTIC-10 ORAL) Take 1 tablet by mouth every morning. oxyCODONE-acetaminophen (PERCOCET) 7.5-325 mg tablet Take 1 tablet by mouth three times daily as needed for pain for up to 30 days. Do not start before October 11, 2022. tolterodine ER (DETROL LA) 4 mg 24 hr capsule Take 4 mg by mouth every morning. Zinc 50 mg tab as needed. dorzolamide (TRUSOPT) 2 % ophthalmic solution Use 1 Drop in the left eye twice daily. latanoprost (XALATAN) 0.005 % ophthalmic solution Use 1 Drop in both eyes daily at bedtime. lisinopril-hydroCHLOROthiazide (PRINZIDE, ZESTORETIC) 20-25 mg per tablet Take 1 tablet by mouth every morning. timolol maleate (TIMOPTIC) 0.5 % ophthalmic solution Use 1 Drop in the left eye twice daily. omeprazole (PRILOSEC) 20 mg capsule Take 20 mg by mouth every morning. meloxicam (MOBIC) 15 mg tablet Take 7.5 mg by mouth twice daily. gabapentin (NEURONTIN) 300 mg capsule TAKE 1 CAPSULE BY MOUTH THREE TIMES DAILY simvastatin (ZOCOR) 20 mg tablet Take 20 mg by mouth daily at bedtime. brimonidine (ALPHAGAN) 0.2 % ophthalmic solution Use 1 Drop in the left eye twice daily. GLAUCOMA cyclobenzaprine (FLEXERIL) 10 mg tablet Take 10 mg by mouth three times daily as needed for muscle spasm. aspirin, enteric coated (ASPIRIN, ENTERIC COATED) 81 mg EC tablet Take 81 mg by mouth every morning. IS GOING TO CHECK WITH SURGEON AND PCP ABOUT WHEN NEEDS TO STOP ASA multivit with minerals/lutein (MULTIVITAMIN 50 PLUS ORAL) Last dose 09/26/22 folic acid 800 mcg tablet Take 800 mcg by mouth every morning. FROM PCP BLOOD NOT CLOT NORMAL PERSON lidocaine-prilocaine (EMLA) 2.5-2.5 % cream Apply to affected area as needed. 1- 2 grams to affectedarea TID PRN (Patient taking differently: Apply 1 application to affected area as needed. 1-2 gramsto affected area TID PRN) No current facility-administered medications for this visit. PHYSICAL EXAMINATION: Vitals: BP 154/94 Pulse 109 Resp 19 Ht 5' 1.2 (1.55m) Wt 231 lb (104.8kg) SpO2 95% BMI43.39 kg/(m^2). GENERAL: GENERAL: Healthy, alert, no distress, cooperative, Smiling SKIN: Skin color, texture, turgor normal. No rashes or lesions. HEENT: PERRL, EOMI, and normal dentition CARDIAC: Normal S1 and S2; no rubs, murmurs, or gallops LUNGS: Lungs clear to auscultation. Good diaphragmatic excursion. Musculoskeletal: Inspection of the spine reveals a midline lumbar scar, which is well healed and unremarkable. Lumbar range of motion is moderately restricted in all planes throughout. There is mild tenderness upon palpation of the lumbar spine, greatest on the right. There are no muscle spasms or trigger points noted in the paraspinal musculature or gluteal muscles. Muscle strength of the lower e xtremities is +5/5 bilaterally, weaker on the right. Great toe extension is intact bilaterally, weaker on the right. Patellar and Achilles reflexes are intact bilaterally, 2+ on the left, 1+ on the right. Straight leg raise is positive on the right. Sensation in the lower extremities is intact. There is slight tenderness to palpation of the right lateral hip/greater trochanter. ROM is significantly reduced on the right. Magdy s test is + on the right. + Left SI joint tenderness with palpation. Right leg length discrepancy noted ( 0.5 cm). Intrathecal pump implant noted right upper buttock area. Surgical incision sites are intact and well-healed. No signs of infection noted. ASSESSMENT: Lumbar postlaminectomy syndrome (primary encounter diagnosis) Radiculopathy, lumbar region [m54.16 (icd-10-cm)] Ddd (degenerative disc disease), lumbar [m51.36 (icd-10-cm)] Intervertebral disc disorder with radiculopathy of lumbar region [m51.16 (icd-10-cm)] Myalgia [m79.10 (icd-10-cm)] History of arthroplasty [z98.890 (icd-10-cm)] Other chronic pain [g89.29 (icd-10-cm)] Implantable intrathecal infusion pump present Radiculitis, thoracic High risk medication use Chronic pain syndrome Patient is stable. Chronic pain is persistent. Medications are helping Emperatriz Ghosh to have an improved quality of life. Patient compliance with Opioid Contract: patient is compliant PDMP website checked and validated. OARRS report reviewed on October 29, 2022 by Ajnu Bradshaw andis consistent with the patients medical history and medication intake. PLAN: The patient understands the goal of our treatment is a reduction in pain and/or an improved level of functioning with activities of daily living. If at any time the patient does not feel the medications are helping them to achieve these goals, the medications may be discontinued. The patient reports a reduction in pain and/or an improved level of functioning with activities of daily living, denies any significant adverse effects, is compliant with the pain management agreement and there are no signs of medication misuse, abuse or diversion; therefore, the medications will be continued. The documentation for this encounter was entered by reji Lind scribe, for Dr. Fatoumata Lyn on October 29, 2022. I, Dr. Fatoumata Lyn, personally performed the services described in this documentation. All medical record entries made by the scribe were at my direction and in my presence. I have reviewed the chart and discharge instructions and agree that the record reflects my personal performance and is accurate and complete. Electronically Signed: Dr. Lyn. October 29, 2022. documented in this encounterOhiohealth [facility]02-26-2023 Miscellaneous Notes* Telephone Encounter - Fatoumata Lyn DO - 10/21/2022 7:58 AM EST Ok. Thanks. * Telephone Encounter - Kimberlee Mendenhall RN - 10/19/2022 10:30 AM EST Amos from [facility] [employer] calling, states pt referral has been processed, she will be seen in the office for pump fills per her insurance. Kimberlee Mendenhall RN October 19, 2022 10:31 AM documented in this encounterOhiohealth Berger Hospital02-07-2023 Instructions* Patient Instructions* Fatoumata Lyn DO - 10/02/2022 2:21 PM EST The OARRS report has been reviewed and is consistent with the patient s medical history and medication intake. Encouraged to do HEP. Start to wean down on Percocet 7.5/325 mg. The PTM will be activated in 4 to 5 weeks. Patient understands goal is to discontinue Percocet and gabapentin after pump implant. Continue Gabapentin managed by Dr. Luda Ann Continue using Lido-Prilo cream.-call for a refill Continue SI joint stabilizer belt from [facility]. Continue HEP. Follow-up with Dr. Soto (hip) prn Do not wet surgical site. Continue with sponge baths until Saturday. Transition over to taking showers on Saturday. Referral to [facility] for ITP maintenance sent in today Discussed starting physical therapy in 4 to 6 weeks Follow-up in 4-[address] Lyn in the office documented in this encounterCleveland [id number] History of Present illness Narrative* Fatoumata Lyn, DO - 10/02/2022 2:15 PM ESTSummary: Pain Management f/up DATE: October 02, 2022 Chief Complaint: Back Pain History of Present Illness: Emperatriz Ghosh is a 72 year old female [facility] for [facility] and/or management of their chronic pain. Patient was last seen in the office on 09/19/2022 and the plan of care is as follows. The OARRS report has been reviewed and is consistent with the patient s medical history and medication intake. Encouraged to do HEP. Continue Percocet 7.5/325 mg TID PRN. Continue Gabapentin managed by Dr. Luda Ann Continue using Lido-Prilo cream.-call for a refill Continue SI joint stabilizer belt from [facility]. Continue HEP. Follow-up with Dr. Soto (hip) prn Scheduled for ITP on 09/28/22 Today patient is here for postop care and states that she felt 50% relief since her intrathecal pump implant surgery. Patient said she has been having urinary incontinence accidents with the bathroomand she also noticed more fluid retention which can be a side-effect of the morphine medication. She had profuse vomiting that Saturday after surgery which has eventually resolved with Zofran. We discussed activating her PTM in 4 to 6 weeks when she is seen back in the office or by [facility]. The patient denies any new diagnoses, hospital visits or ER visits. Since the last office visit the patientsmedical history has not changed. VAS: 4/10 Chief complaint: LBP Location: across her back Timing: varies with activity Severity: varies Quality: dull, aching Radiation: denies Numbness: denies Burning: denies Tingling: denies Weakness: denies Falls: denies Nausea after surgery which has now resolved Alleviating Factors: analgesic therapy, rest-to some degree, injections, Compound cream Aggravating Factors: increased activity, prolonged walking, standing The patient has constipation for about 4 days now and is taking OTC medication. Last UDS: consistent Summary Report Date Value Ref Range Status 08/22/2022 FINAL Final Comment: Opiate Class, MS, Ur RFX Oxycodone Class, MS, Ur RFX Gabapentin, MS, Ur RFX Acetaminophen, MS, Ur RFX ToxAssure Flex 23, Ur Test Result Flag Units Drug Present Oxycodone 2008 ng/mg creat Oxymorphone 1594 ng/mg creat Noroxycodone 2715 ng/mg creat Noroxymorphone 480 ng/mg creat Sources of oxycodone are scheduled prescription medications. Oxymorphone, noroxycodone, and noroxymorphone are expected metabolites of oxycodone. Oxymorphone is also available as a scheduled prescription medication. Gabapentin PRESENT Acetaminophen PRESENT Test Result Flag Units Ref Range Creatinine 96 mg/dL >=20 Declared Medications: Medication list was not provided. For clinical consultation, please call . No results found for: SUMMAR Chronic Pain Functional Assessment Tools Pain Disability Index: Pain Disability Index 09/19/2022 10/02/2022 Family/Home Responsibilities 5 7 Recreation 7 7 Social Activity 5 7 Occupation 5 7 Sexual Behavior 5 7 Self Care 1 7 Life Support Activity 2 7 PDI Score 30 49 Pain Enjoyment of Life and General Activity Scale (0-10): PEG: A Three-Item Scale Assessing Pain Intensity and Interference What number best describes your pain on average in the past week?: 7 (10/02/2022 2:00 PM) What number best describes how, during the past week, pain has interfered with your enjoyment of life?: 7 (10/02/2022 2:00 PM) What number best describes how, during the past week, pain has interfered with your general activity?: 7 (10/02/2022 2:00 PM) REVIEW OF SYSTEMS: GENERAL: No weight loss, malaise or fevers RESPIRATORY: Negative for cough, hemoptysis, wheezing, COPD, dyspnea or shortness of breath. CARDIOVASCULAR: Negative for chest pain, leg swelling, hypertension, CHF or palpitations GI: No nausea, vomiting, or diarrhea. MUSCULOSKELETAL: Negative for joint pain or swelling, back pain or muscle pain. Back pain 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 Back pain Essential hypertension HIGH CHOL GERD (gastroesophageal reflux disease) Hiatal hernia High cholesterol Incontinence of urine Joint pain Sleep apnea mild sleep apnea- no cpap used Wears glasses PAST SURGICAL HISTORY Procedure Laterality Date BLADDER SURGERY HX REPAIR AND LIFT HYSTERECTOMY HX VAGINAL ORTHOPEDICS SURGERY HX HIP REPLACED TOTAL KNEE REPLACEMENT Right RIGHT TOTAL KNEE REPLACED FAMILY HISTORY Problem Relation Age of Onset Stroke Father Heart disease Father Kidney Disease Mother Osteoporosis Mother Diabetes Sister Breast Cancer Sister Social History Tobacco Use Smoking status: Never Passive exposure: Never Smokeless tobacco: Never Substance Use Topics Alcohol use: Not Currently Drug use: Not Currently Work Status: retired Allergies: No Known Allergies Current Outpatient Medications Medication Sig nitrofurantoin monohydrate and macrocrystal (MACROBID) 100 mg capsule TAKE 1 CAPSULE BY MOUTH EVERY12 HOURS WITH FOOD cephALEXin (KEFLEX) 500 mg capsule Take 1 capsule by mouth twice daily for 5 days. morphine (PF) 5 mg/mL in NaCl 0.9% 20 mL PF MORPHINE 5 MG/ML SIMPLE CONTINUOUS RATE 0.03 MG/HOUR SYNCHROMED II [employer] INTRATHECAL PUMP WITH PERSONAL FIRST SAMPLER cholecalciferol (VITAMIN D3) 5,000 unit tab Take 2,000 Units by mouth once daily. Last dose 09/26/22 Lactobac no.41/Bifidobact no.7 (PROBIOTIC-10 ORAL) Take 1 tablet by mouth every morning. [START ON 10/11/2022] oxyCODONE-acetaminophen (PERCOCET) 7.5-325 mg tablet Take 1 tablet by mouth three times daily as needed for pain for up to 30 days. Do not start before October 11, 2022. ondansetron (ZOFRAN) 4 mg tablet Take 1 tablet by mouth every 8 hours as needed for nausea/vomiting. tolterodine ER (DETROL LA) 4 mg 24 hr capsule Take 4 mg by mouth every morning. Zinc 50 mg tab as needed. dorzolamide (TRUSOPT) 2 % ophthalmic solution Use 1 Drop in the left eye twice daily. latanoprost (XALATAN) 0.005 % ophthalmic solution Use 1 Drop in both eyes daily at bedtime. lisinopril-hydroCHLOROthiazide (PRINZIDE, ZESTORETIC) 20-25 mg per tablet Take 1 tablet by mouth every morning. timolol maleate (TIMOPTIC) 0.5 % ophthalmic solution Use 1 Drop in the left eye twice daily. omeprazole (PRILOSEC) 20 mg capsule Take 20 mg by mouth every morning. meloxicam (MOBIC) 15 mg tablet Take 7.5 mg by mouth twice daily. gabapentin (NEURONTIN) 300 mg capsule TAKE 1 CAPSULE BY MOUTH THREE TIMES DAILY simvastatin (ZOCOR) 20 mg tablet Take 20 mg by mouth daily at bedtime. brimonidine (ALPHAGAN) 0.2 % ophthalmic solution Use 1 Drop in the left eye twice daily. GLAUCOMA cyclobenzaprine (FLEXERIL) 10 mg tablet Take 10 mg by mouth three times daily as needed for muscle spasm. aspirin, enteric coated (ASPIRIN, ENTERIC COATED) 81 mg EC tablet Take 81 mg by mouth every morning. IS GOING TO CHECK WITH SURGEON AND PCP ABOUT WHEN NEEDS TO STOP ASA multivit with minerals/lutein (MULTIVITAMIN 50 PLUS ORAL) Last dose 09/26/22 folic acid 800 mcg tablet Take 800 mcg by mouth every morning. FROM PCP BLOOD NOT CLOT NORMAL PERSON lidocaine-prilocaine (EMLA) 2.5-2.5 % cream Apply to affected area as needed. 1- 2 grams to affectedarea TID PRN (Patient taking differently: Apply 1 application to affected area as needed. 1-2 gramsto affected area TID PRN) No current facility-administered medications for this visit. PHYSICAL EXAMINATION: Vitals: BP 101/62 Pulse 112 Resp 19 Ht 5' 1.2 (1.55m) Wt 233 lb (105.7kg) SpO2 93% BMI43.76 kg/(m^2). GENERAL: Healthy, alert, no distress, cooperative, Smiling SKIN: Skin color, texture, turgor normal. No rashes or lesions. HEENT: PERRL, EOMI, and normal dentition CARDIAC: Normal S1 and S2; no rubs, murmurs, or gallops LUNGS: Lungs clear to auscultation. Good diaphragmatic excursion. Musculoskeletal: Inspection of the spine reveals a midline lumbar scar, which is well healed and unremarkable. Lumbar range of motion is moderately restricted in all planes throughout. There is mild tenderness upon palpation of the lumbar spine, greatest on the right. There are no muscle spasms or trigger points noted in the paraspinal musculature or gluteal muscles. Muscle strength of the lower e xtremities is +5/5 bilaterally, weaker on the right. Great toe extension is intact bilaterally, weaker on the right. Patellar and Achilles reflexes are intact bilaterally, 2+ on the left, 1+ on the right. Straight leg raise is positive on the right. Sensation in the lower extremities is intact. There is slight tenderness to palpation of the right lateral hip/greater trochanter. ROM is significantly reduced on the right. Magdy s test is + on the right. + Left SI joint tenderness with palpation. Right leg length discrepancy noted ( 0.5 cm). Intrathecal pump implant noted right upper buttock area. Surgical incision sites are intact and well-healed. No signs of infection noted. ASSESSMENT: Lumbar postlaminectomy syndrome [m96.1 (icd-10-cm)] (primary encounter diagnosis) Radiculopathy, lumbar region [m54.16 (icd-10-cm)] Ddd (degenerative disc disease), lumbar [m51.36 (icd-10-cm)] Intervertebral disc disorder with radiculopathy of lumbar region [m51.16 (icd-10-cm)] Myalgia [m79.10 (icd-10-cm)] History of arthroplasty [z98.890 (icd-10-cm)] Other chronic pain [g89.29 (icd-10-cm)] Implantable intrathecal infusion pump present Patient is stable. Chronic pain is persistent. Medications are helping Emperatriz Ghosh to have an improved quality of life. Patient compliance with Opioid Contract: patient is compliant PDMP website checked and validated. OARRS report reviewed on October 02, 2022 by Anju Bradshaw and is consistent with the patients medical history and medication intake. PLAN: The patient understands the goal of our treatment is a reduction in pain and/or an improved level of functioning with activities of daily living. If at any time the patient does not feel the medications are helping them to achieve these goals, the medications may be discontinued. The patient reports a reduction in pain and/or an improved level of functioning with activities of daily living, denies any significant adverse effects, is compliant with the pain management agreement and there are no signs of medication misuse, abuse or diversion; therefore, the medications will be continued. I, Dr. Fatoumata Lyn, personally performed the services described in this documentation. All medical record entries made by the scribDasha Bradshaw were at my direction and in my presence. I have reviewed the chart and discharge instructions and agree that the record reflects my personal performance and is accurate and complete. Electronically Signed: Dr. Lyn. October 02, 2022 documented in this encounterOhio[facility]02-01-2023 Miscellaneous Notes* Telephone Encounter - Fatoumata Lyn DO - 09/26/2022 2:29 PM EST The surgery is usually 2 hours. She will be in recovery for an additional 1-1/2 hours. Therefore, Itell patients 4 hours total after her surgical time. She will be going home after surgery. Preadmission testing will tell her the medications that she has to hold. * Telephone Encounter - Colleen Leong RN - 09/26/2022 1:35 PM EST Images from the original note were not included. Appointment (Newest Message First) Fatoumata Lyn DO You; Mr Juanpablo Monson Pool 10 minutes ago (1:23 PM) JL Please contact patient to notify her that she has preadmission testing tomorrow at 10 AM. She can contact [phone] if she needs to reschedule the surgery Saturday. Notes No notes found. Care Advice No Care Advice given for this encounter. Per Dr. Lyn Pt called and notified of the testing scheduled for tomorrow and she will be there. She is asking if she needs to hold any medications? She is on a baby ASA and taking her pain medications OK? She isalso asking how long the surgery will take? Please advise. Colleen Leong RN September 26, 2022 1:37 PM documented in this encounterOhio[facility]02-01-2023 Miscellaneous Notes* Telephone Encounter - Leesa Rodrigues RN - 09/26/2022 1:52 PM EST p documented in this encounterC[place] [id number] Instructions* Patient Instructions* Jaci Nixon APRN.CNP - 09/19/2022 3:06 PM EST The OARRS report has been reviewed and is consistent with the patient s medical history and medication intake. Encouraged to do HEP. Continue Percocet 7.5/325 mg TID PRN. Continue Gabapentin managed by Dr. Luda Ann Continue using Lido-Prilo cream.-call for a refill Continue SI joint stabilizer belt from [facility]. Continue HEP. Follow-up with Dr. Soto (hip) prn Scheduled for ITP on 09/28/22 Jaci Nixon APRN.CNP documented in this encounterOhiohealth [facility]01-25-2023 History of Present illness Narrative* Jaci Nixon APRN.CNP - 09/19/2022 2:59 PM EST This video visit was performed via [employer] video visit. Patient consented to receive health care services via virtual visit for this encounter Provider [facility] Patient Location: Patient Home or Place of Residence Risks, benefits, and limitations of receiving care virtually were discussed with the patient. The patient expressed understanding and is willing to proceed. Chief Complaint: Pain History of Present Illness: Emperatriz Ghosh is a 72 year old year old female being seen at [facility] for a evaluation and/or management of their chronic pain. This patient has an office visit on 04/16/[address] Lyn, virtual visit with al on 08/16/22. She is scheduled for a virtual visit today. She is moving forward with the intrathecal pump. VAS: 6/10 Chief complaint: LBP Location: across her back Timing: varies with activity Severity: varies Quality: dull, aching Radiation: denies Numbness: denies Burning: denies Tingling: denies Weakness: denies Falls: denies Alleviating Factors: analgesic therapy, rest-to some degree, injections, Compound cream Aggravating Factors: increased activity, prolonged walking, standing The patient denies any bowel or bladder dysfunction Since the last office visit the patients medical history has not changed. The patient denies any new diagnoses, hospital visits or ER visits. The patient is currently prescribed Percocet and lido-prilo cream from our office. The last dose was taken at 1:30 p.m. The medications are partially effective. The patient denies nausea, vomiting, constipation,rashes, drowsiness,weight gain, weight loss,dizziness,and fatigue. The OARRS report has been reviewed and is consistent with the patients medical history and medication intake. Last Urine Drug Screen (UDS): 08/22/22. The UDS has been reviewed and is consistent with medications prescribed. Last UDS: Obtained. Summary Report Date Value Ref Range Status 08/22/2022 FINAL Final Comment: Opiate Class, MS, Ur RFX Oxycodone Class, MS, Ur RFX Gabapentin, MS, Ur RFX Acetaminophen, MS, Ur RFX ToxAssure Flex 23, Ur Test Result Flag Units Drug Present Oxycodone 2008 ng/mg creat Oxymorphone 1594 ng/mg creat Noroxycodone 2715 ng/mg creat Noroxymorphone 480 ng/mg creat Sources of oxycodone are scheduled prescription medications. Oxymorphone, noroxycodone, and noroxymorphone are expected metabolites of oxycodone. Oxymorphone is also available as a scheduled prescription medication. Gabapentin PRESENT Acetaminophen PRESENT Test Result Flag Units Ref Range Creatinine 96 mg/dL >=20 Declared Medications: Medication list was not provided. For clinical consultation, please call . No results found for: SUMMAR REVIEW OF SYSTEMS: GENERAL: No weight loss, malaise or fevers RESPIRATORY: Negative for cough, hemoptysis, wheezing, COPD, (+) shortness of breath at times. CARDIOVASCULAR: Negative for chest pain, leg swelling, hypertension, CHF or palpitations GI: No nausea, vomiting, or diarrhea. MUSCULOSKELETAL: (+) for joint pain back pain or muscle pain. PAST MEDICAL HISTORY Diagnosis Date Arthritis Back pain GERD (gastroesophageal reflux disease) Hernia Joint pain PAST SURGICAL HISTORY Procedure Laterality Date BLADDER SURGERY HX HYSTERECTOMY HX ORTHOPEDICS SURGERY HX FAMILY HISTORY Problem Relation Age of Onset Stroke Father Heart disease Father Kidney Disease Mother Osteoporosis Mother Diabetes Sister Breast Cancer Sister Social History Tobacco Use Smoking status: Never Smokeless tobacco: Never Substance Use Topics Alcohol use: Not Currently Drug use: Not Currently Allergies: No Known Allergies Current Outpatient Medications Medication Sig oxyCODONE-acetaminophen (PERCOCET) 7.5-325 mg tablet Take 1 tablet by mouth three times daily as needed for pain for up to 30 days. Do not start before September 10, 2022. ondansetron (ZOFRAN) 4 mg tablet Take 1 tablet by mouth every 8 hours as needed for nausea/vomiting. tolterodine ER (DETROL LA) 4 mg 24 hr capsule Take 1 capsule by mouth q 24 HR. Zinc 50 mg tab take 1 Tablet by Oral route every day amoxicillin (POLYMOX, AMOXIL) 500 mg capsule TAKE 4 CAPSULES BY MOUTH 1 HOUR BEFORE DENTAL PROCEDURE DIRECTED lidocaine-prilocaine (EMLA) 2.5-2.5 % cream Apply to affected area as needed. 1- 2 grams to affectedarea TID PRN lidocain-me.bshrcid-xytt-odxay 0.5-20-0.035-5 % ptmd EMLA CREAM PRILOCAINE 2%/LIDOCAINE 2% dorzolamide (TRUSOPT) 2 % ophthalmic solution Use 1 Drop in both eyes twice daily. latanoprost (XALATAN) 0.005 % ophthalmic solution INSTILL 1 DROP IN BOTH EYES AT BEDTIME lisinopril-hydroCHLOROthiazide (PRINZIDE, ZESTORETIC) 20-25 mg per tablet Take 1 tablet by mouth once daily. timolol maleate (TIMOPTIC) 0.5 % ophthalmic solution Use 1 Drop in both eyes twice daily. ammonium lactate (LAC-HYDRIN) 12 % cream APPLY TO LEGS DAILY DIRECTED omeprazole (PRILOSEC) 20 mg capsule tolterodine (DETROL) 1 mg tablet Detrol 1 mg tablet meloxicam (MOBIC) 15 mg tablet Take 15 mg by mouth once daily. gabapentin (NEURONTIN) 300 mg capsule TAKE 1 CAPSULE BY MOUTH THREE TIMES DAILY simvastatin (ZOCOR) 20 mg tablet TAKE 1 TABLET BY MOUTH EVERY DAY timolol hemihydrate (BETIMOL) 0.25 % ophthalmic solution Use in eyes. brimonidine (ALPHAGAN) 0.2 % ophthalmic solution cyclobenzaprine (FLEXERIL) 10 mg tablet mg = tab(s), Oral, TID, 0 Refill(s) aspirin, enteric coated (ASPIRIN, ENTERIC COATED) 81 mg EC tablet ASPIR-81 TABLET DELAYED RELEASE multivit with minerals/lutein (MULTIVITAMIN 50 PLUS ORAL) SENIOR MULTIVITAMIN PLUS ORAL TABLET folic acid 800 mcg tablet folic acid 800 mcg tablet No current facility-administered medications for this visit. PHYSICAL EXAMINATION: VIDEO EXAM: (performed via video enabled technology) GENERAL: alert and appropriate, in no distress, well-hydrated, well nourished and happy, smiling, interactive HEAD: normocephalic, no abnormality or lesion noted RESPIRATORY: breathing non-labored NEUROLOGIC: no obvious deficit ASSESSMENT: Patient is stable. Chronic pain is persistent. Medications are helping Emperatriz Ghosh to have an improved quality of life. Patient compliance with Opioid Contract: patient is compliant Encounter Diagnosis ICD-10-CM 1. Lumbar postlaminectomy syndrome M96.1 2. Lumbar radiculopathy M54.16 3. DDD (degenerative disc disease), lumbar M51.36 4. Intervertebral disc disorder with radiculopathy of lumbar region M51.16 5. Myalgia M79.10 6. Acute arthropathy M12.9 7. Radiculitis, thoracic M54.14 8. Other chronic pain G89.29 PLAN: The patient understands the goal of our treatment is a reduction in pain and/or an improved level of functioning with activities of daily living. If at any time the patient does not feel the medications are helping them to achieve these goals, the medications may be discontinued. The patient reports a reduction in pain and/or an improved level of functioning with activities of daily living, denies any significant adverse effects, is compliant with the pain management agreement and there are no signs of medication misuse, abuse or diversion; therefore, the medications will be continued. The OARRS report has been reviewed and is consistent with the patient s medical history and medication intake. Encouraged to do HEP. Continue Percocet 7.5/325 mg TID PRN. Continue Gabapentin managed by Dr. Luda Ann Continue using Lido-Prilo cream.-call for a refill Continue SI joint stabilizer belt from [facility]. Continue HEP. Follow-up with Dr. Soto (hip) prn Scheduled for ITP on 09/28/22 Jaci Nixon APRN.SHANA documented in this encounterOhio[facility]12-29-2022 Miscellaneous Notes* Telephone Encounter - Jaci Nixon APRN.CNP - 08/23/2022 2:09 PM EST Noted and thank you. * Telephone Encounter - Kimberlee Mendenhall RN - 08/23/2022 9:26 AM EST Pt submitted uds Kimberlee Mendenhall RN August 23, 2022 9:26 AM * Telephone Encounter - Colleen Leong RN - 08/22/2022 8:38 AM EST Pt called and notified of the UDS, pt states that she will be here today or tomorrow. Please advise. Colleen Leong RN August 22, 2022 8:38 AM * Telephone Encounter - Jaci Nixon APRN.CNP - 08/21/2022 6:22 PM EST Please call the pt for a UDS. documented in this [facility]12-12-2022 Miscellaneous Notes* Telephone Encounter - Fatoumata Lyn DO - 08/06/2022 9:00 PM EST The following approved medication requests have been transmitted electronically. Requested Prescriptions Pending Prescriptions Disp Refills oxyCODONE-acetaminophen (PERCOCET) 7.5-325 mg tablet 90 tablet 0 Sig: Take 1 tablet by mouth three times daily as needed for up to 30 days. Do not start before August 11, 2022. Fatoumata Lyn DO * Telephone Encounter - Yue Ramirez RN - 08/06/2022 11:35 AM EST Patient phones requesting refills as follows: Requested Prescriptions Pending Prescriptions Disp Refills oxyCODONE-acetaminophen (PERCOCET) 7.5-325 mg tablet 90 tablet 0 Sig: Take 1 tablet by mouth three times daily as needed for up to 30 days. Please review and advise. Yue Ramirez RN documented in this encounterOhio[facility] Hospital11-02-2022 Miscellaneous Notes* Telephone Encounter - Yue Ramirez RN - 06/27/2022 3:02 PM EDT Pt called regarding her Pump trial and not having any updates from our office. Per last office visit on 04/16/22 you noted to schedule ITP trial Morphine with 3 days in hospital. Can you build case for Leida to call and schedule? Yue Ramirez RN June 27, 2022 3:05 PM documented in this encounterOhiohealth [facility]10-26-2022 History of Present illness Narrative* Beth Abreu RRT - 06/20/2022 3:49 PM EDT Final pulmonary testing results faxed and confirmed to Dr Randi Ann at [phone] on 06/20/22. documented in this encounterOhiohealth [facility] Hospital10-21-2022 History of Present illness Narrative* Beth Abreu RRT - 06/15/2022 10:25 AM EDT PULM FUNCTION SMARTBLOCK: Provider: Luda Ann DO Assisting Tech: Beth Abreu RRT Spirometry w/BD: 1 DLCO: 1 LV - Box: 1 MVV: 1 documented in this encounterOhiohealth Berger Hospital10-19-2022 Miscellaneous Notes* Telephone Encounter - Fatoumata Lyn DO - 06/13/2022 1:01 PM EDT The following approved medication requests have been transmitted electronically. Requested Prescriptions Pending Prescriptions Disp Refills lidocaine-prilocaine (EMLA) 2.5-2.5 % cream 30 g 1 Sig: Apply to affected area as needed. 1-2 grams to affected area TID PRN Fatoumata Lyn DO * Telephone Encounter - Yue Ramirez RN - 06/13/2022 10:30 AM EDT Pt called regarding her lidocaine [email or web address] This was unable to be filled how the RX was written because it was a compound medication. New rx requested. Yue Ramirez RN June 13, 2022 10:34 AM documented in this encounterOhiohealth Berger Hospital10-18-2022 Miscellaneous Notes* Telephone Encounter - Fatoumata Lyn DO - 06/12/2022 7:00 AM EDT The following approved medication requests have been transmitted electronically. Requested Prescriptions Pending Prescriptions Disp Refills oxyCODONE-acetaminophen (PERCOCET) 7.5-325 mg tablet 90 tablet 0 Sig: Take 1 tablet by mouth three times daily as needed for up to 30 days. lidocain-me.leyqmng-otht-mjiep 0.5-20-0.035-5 % ptmd 7 Patch 1 Sig: EMLA CREAM PRILOCAINE 2%/LIDOCAINE 2% Fatoumata Lyn DO * Telephone Encounter - Colleen Leong RN - 06/11/2022 1:02 PM EDT Pt requesting refill as follows Requested Prescriptions Pending Prescriptions Disp Refills oxyCODONE-acetaminophen (PERCOCET) 7.5-325 mg tablet 90 tablet 0 Sig: Take 1 tablet by mouth three times daily as needed for up to 30 days. lidocain-me.hkiorlh-slnj-ntryh 0.5-20-0.035-5 % ptmd 7 Patch 1 Sig: EMLA CREAM PRILOCAINE 2%/LIDOCAINE 2% Please review and advise. Colleen Leong RN documented in this encounterOhiohealth Berger Hospital09-09-2022 Miscellaneous Notes* Telephone Encounter - Fatoumata Lyn DO - 05/04/2022 12:19 PM EDT The following approved medication requests have been transmitted electronically. Requested Prescriptions Pending Prescriptions Disp Refills oxyCODONE-acetaminophen (PERCOCET) 7.5-325 mg tablet 90 tablet 0 Sig: Take 1 tablet by mouth three times daily as needed for up to 30 days. Fatoumata Lny DO * Telephone Encounter - Yue Ramirez RN - 05/02/2022 11:11 AM EDT Patient phones requesting refills as follows: Requested Prescriptions Pending Prescriptions Disp Refills oxyCODONE-acetaminophen (PERCOCET) 7.5-325 mg tablet 90 tablet 0 Sig: Take 1 tablet by mouth three times daily as needed for up to 30 days. Please review and advise. Yue Ramirez RN documented in this encounterOhiohealth Berger Hospital08-22-2022 Instructions* Patient Instructions* Fatoumata Lyn DO - 04/16/2022 10:23 AM EDT 1) The OARRS report has been reviewed and is consistent with the patient s medical history and medication intake. 2) Encouraged to do HEP. 3) Continue Percocet 7.5/325 mg TID PRN. 4) Continue Gabapentin managed by Dr. Luda Ann 5) Continue using Lido-Prilo cream. 6) Continue SI joint stabilizer belt from [facility]. 7) Continue HEP. 8) Follow-up with Dr. Soto (hip) prn 9) Schedule ITP trial with Morphine x 3 days in hospital. documented in this encounterOhiohealth Berger Hospital08-22-2022 History of Present illness Narrative* Fatoumata Lyn DO - 04/16/2022 10:18 AM EDTSummary: Pain management office follow-up visit DATE: April 16, 2022 Chief Complaint: Back and mid-back History of Present Illness: Emperatriz Ghosh is a 71 year old female being seen at [facility] for a evaluation and/or management of their chronic pain. She was last seen in the office on02/15/2022. The overall plan of care was as follows: 1) The OARRS report has been reviewed and is consistent with the patient s medical history and medication intake. 2) Encouraged to do HEP. 3) Continue Percocet 7.5/325 mg TID PRN. 4) Continue Gabapentin managed by Dr. Luda Ann 5) Continue using Lido-Prilo cream. 6) Continue SI joint stabilizer belt from [facility]. 7) Continue HEP. 8) Follow-up with Dr. Soto (hip) prn 9) F/U with JANEY Gold on 03/13/22 via virtual visit. Since her last office follow-up visit she denies any other recent hospitalizations or ER visits. Her chief complaint is still lower back and mid back pain. She has more tightness on the left side of her lower back. She failed her spinal cord stim trial in January. She has an interest in moving forwardwith the intrathecal pump trial. We discussed realistic expectations and area of coverage for the trial. She may decide to pursue trial next year. Her VAS is 3 out of 10. The Percocet is partially effective and is only lasting for 3 hours. She did get the SI joint stabilization belt which only gives her minimal benefit. Her last UDS was done on December 11 which was consistent. Pain Location: LB and mid back area Pain Scale: 3 on 0-10 scale per patient Duration: (How long have you had the pain?) several years with no precipitating event Pain Character: aching Timing: occurs constantly with exertion Radiation: none Patient Reports: leg weakness The pain is exacerbated by standing and walking The pain is mitigated by sitting and lying down Symptoms interfere with physical activity and social activities History of Falls: None in the past 3 months Patient reports good sleep habits and reports 7 hours of uninterrupted sleep per night. She feels rested in the morning and reports no mood changes. She is currently prescribed Percocet from our office. The patient states the last dose of Percocet was taken today. The medications are effective. Previous studies include: none. Prior pain treatment has included: SCStim trial failed REVIEW OF SYSTEMS: GENERAL: No weight loss, malaise or fevers RESPIRATORY: Negative for cough, hemoptysis, wheezing, COPD, dyspnea or shortness of breath. CARDIOVASCULAR: Negative for chest pain, leg swelling, hypertension, CHF or palpitations GI: No nausea, vomiting, or diarrhea. MUSCULOSKELETAL: Negative for joint pain or swelling, back pain or muscle pain. N/a PAST MEDICAL HISTORY Diagnosis Date Arthritis Back pain GERD (gastroesophageal reflux disease) Hernia Joint pain PAST SURGICAL HISTORY Procedure Laterality Date BLADDER SURGERY HX HYSTERECTOMY HX ORTHOPEDICS SURGERY HX FAMILY HISTORY Problem Relation Age of Onset Stroke Father Heart disease Father Kidney Disease Mother Osteoporosis Mother Diabetes Sister Breast Cancer Sister Social History Tobacco Use Smoking status: Never Smokeless tobacco: Never Substance Use Topics Alcohol use: Not Currently Drug use: Not Currently Work Status: on chronic disability Allergies: No Known Allergies Current Outpatient Medications Medication Sig dorzolamide (TRUSOPT) 2 % ophthalmic solution Use 1 Drop in both eyes twice daily. latanoprost (XALATAN) 0.005 % ophthalmic solution INSTILL 1 DROP IN BOTH EYES AT BEDTIME lisinopril-hydroCHLOROthiazide (PRINZIDE, ZESTORETIC) 20-25 mg per tablet Take 1 tablet by mouth once daily. timolol maleate (TIMOPTIC) 0.5 % ophthalmic solution Use 1 Drop in both eyes twice daily. ammonium lactate (LAC-HYDRIN) 12 % cream APPLY TO LEGS DAILY DIRECTED oxyCODONE-acetaminophen (PERCOCET) 7.5-325 mg tablet Take 1 tablet by mouth three times daily as needed for up to 30 days. Do not start before March 25, 2022. omeprazole (PRILOSEC) 20 mg capsule tolterodine (DETROL) 1 mg tablet Detrol 1 mg tablet meloxicam (MOBIC) 15 mg tablet Take 15 mg by mouth once daily. gabapentin (NEURONTIN) 300 mg capsule TAKE 1 CAPSULE BY MOUTH THREE TIMES DAILY simvastatin (ZOCOR) 20 mg tablet TAKE 1 TABLET BY MOUTH EVERY DAY timolol hemihydrate (BETIMOL) 0.25 % ophthalmic solution Use in eyes. brimonidine (ALPHAGAN) 0.2 % ophthalmic solution cyclobenzaprine (FLEXERIL) 10 mg tablet mg = tab(s), Oral, TID, 0 Refill(s) aspirin, enteric coated (ASPIRIN, ENTERIC COATED) 81 mg EC tablet ASPIR-81 TABLET DELAYED RELEASE multivit with minerals/lutein (MULTIVITAMIN 50 PLUS ORAL) SENIOR MULTIVITAMIN PLUS ORAL TABLET lidocain-me.denhpxn-txbo-ggrsm 0.5-20-0.035-5 % ptmd EMLA CREAM PRILOCAINE 2%/LIDOCAINE 2% folic acid 800 mcg tablet folic acid 800 mcg tablet No current facility-administered medications for this visit. I have reviewed the nurses notes and I am aware of the family/social history. Since the last evaluation the medical history has not changed. PHYSICAL EXAMINATION: Vitals: BP 130/85 Pulse 107 Resp 19 Ht 5' 3.6 (1.62m) Wt 238 lb (108.0kg) SpO2 98% BMI41.39 kg/(m^2). GENERAL: healthy, alert, no distress, cooperative, morbid obesity noted. Patient does not have antalgic gait. She does not use a cane or walker for ambulation. SKIN: Skin color, texture, turgor normal. No rashes or lesions. HEENT: PERRL, EOMI, and normal dentition CARDIAC: normal S1 and S2; no rubs, murmurs, or gallops LUNGS: Lungs clear to auscultation. Good diaphragmatic excursion. Musculoskeletal: Inspection of the spine reveals a midline lumbar scar, which is well healed and unremarkable. Lumbar range of motion is moderately restricted in all planes throughout. There is mild tenderness upon palpation of the lumbar spine, greatest on the right. There are no muscle spasms or trigger points noted in the paraspinal musculature or gluteal muscles. Muscle strength of the lower e xtremities is +5/5 bilaterally, weaker on the right. Great toe extension is intact bilaterally, weaker on the right. Patellar and Achilles reflexes are intact bilaterally, 2+ on the left, 1+ on the right. Straight leg raise is positive on the right. Sensation in the lower extremities is intact. There is slight tenderness to palpation of the right lateral hip/greater trochanter. ROM is significantly reduced on the right. Magdy s test is + on the right. Well healed surgical scar is noted. There are no s/s infection noted. + Left SI joint tenderness with palpation. Right leg length discrepancy noted ( 0.5 cm). ASSESSMENT: 1. Lumbar DDD 2. Lumbar radiculopathy 3. Morbid obesity Patient is stable. Chronic pain is persistent. Medications are helping Emperatriz Ghosh to have an improved quality of life. Patient compliance with Opioid Contract: patient is compliant PDMP website checked and validated. All prescriptions have been APPROPRIATELY filled. No suspiciousactivity was identified. 04/16/2022 by Fatoumata Lyn DO The patient understands the goal of our treatment is a reduction in pain and/or an improved level of functioning with activities of daily living. If at any time the patient does not feel the medications are helping them to achieve these goals, the medications may be discontinued. Fatoumata Lyn DO documented in this encounterOhiohealth Berger Hospital07-19-2022 Instructions* Patient Instructions* Jaci Nixon APRN.ANESTHESIOLOGIST - 03/13/2022 9:41 AM EDT The OARRS report has been reviewed and is consistent with the patient s medical history and medication intake. Encouraged to do HEP. Continue Percocet 7.5/325 mg TID Continue Gabapentin managed by Dr. Luda Ann Continue using Lido-Prilo cream. Continue SI joint stabilizer belt from [facility]. Continue HEP. Follow-up with Dr. Soto (hip) prn F/u in 1 month -Please schedule the next appointment in [employer] or call [phone] Option 1. documented in this encounterOhiohealth Berger Hospital07-19-2022 History of Present illness Narrative* Jaci Nixon APRN.CNP - 03/13/2022 9:40 AM EDTSummary: F/u DATE: March 13, 2022 This video visit was performed via [employer] video visit. Patient consented to receive health care services via virtual visit for this encounter [facility] Patient Location: Patient Home or Place of Residence Risks, benefits, and limitations of receiving care virtually were discussed with the patient. The patient expressed understanding and is willing to proceed. Chief Complaint: Pain History of Present Illness: Emperatriz Ghosh is a 71 year old year old female being seen at [facility] for a evaluation and/or management of their chronic pain. This patient has an office visit on 02/15/22. She is scheduled for a virtual visit today. Since the last office visit her pain level has increased. On 02/15/22 she had the trial SCS removed. Pt. statesthe surgeon doesn't want to do any more surgery. VAS: 5/10 Chief complaint: LBP Location: across her back Timing: varies with activity Severity: varies Quality: dull, aching Radiation: denies Numbness: denies Burning: denies Tingling: denies Weakness: denies Falls: denies Alleviating Factors: analgesic therapy, rest-to some degree, injections, Compound cream Aggravating Factors: increased activity, prolonged walking, standing The patient denies any bowel or bladder dysfunction Since the last office visit the patients medical history has not changed. The patient denies any new diagnoses, hospital visits or ER visits. The patient is currently prescribed Percocet and lido-prilo cream from our office. The last dose was taken at 8:00 a.m. The medications are partially effective. The patient denies nausea, vomiting, constipation,rashes, drowsiness,weight gain, weight loss,dizziness,and fatigue. She is not taking the Percocet tid. I have encouraged her to take TID and to stay ahead of the pain since she states it does help when she does take it. The OARRS report has been reviewed and is consistent with the patients medical history and medication intake. Last Urine Drug Screen (UDS): 12/11/21. The UDS has been reviewed and is consistent with medicationsprescribed. REVIEW OF SYSTEMS: GENERAL: No weight loss, malaise or fevers RESPIRATORY: Negative for cough, hemoptysis, wheezing, COPD, (+) shortness of breath at times. CARDIOVASCULAR: Negative for chest pain, leg swelling, hypertension, CHF or palpitations GI: No nausea, vomiting, or diarrhea. MUSCULOSKELETAL: (+) for joint pain back pain or muscle pain. PAST MEDICAL HISTORY Diagnosis Date Back pain GERD (gastroesophageal reflux disease) Joint pain PAST SURGICAL HISTORY Procedure Laterality Date BLADDER SURGERY HX HYSTERECTOMY HX ORTHOPEDICS SURGERY HX No family history on file. Social History Tobacco Use Smoking status: Never Smoker Smokeless tobacco: Never Used Substance Use Topics Alcohol use: Not Currently Drug use: Not Currently Allergies: No Known Allergies Current Outpatient Medications Medication Sig oxyCODONE-acetaminophen (PERCOCET) 7.5-325 mg tablet Take 1 tablet by mouth three times daily as needed for up to 30 days. omeprazole (PRILOSEC) 20 mg capsule tolterodine (DETROL) 1 mg tablet Detrol 1 mg tablet meloxicam (MOBIC) 15 mg tablet Take 15 mg by mouth once daily. gabapentin (NEURONTIN) 300 mg capsule TAKE 1 CAPSULE BY MOUTH THREE TIMES DAILY simvastatin (ZOCOR) 20 mg tablet TAKE 1 TABLET BY MOUTH EVERY DAY timolol hemihydrate (BETIMOL) 0.25 % ophthalmic solution Use in eyes. brimonidine (ALPHAGAN) 0.2 % ophthalmic solution cyclobenzaprine (FLEXERIL) 10 mg tablet mg = tab(s), Oral, TID, 0 Refill(s) aspirin, enteric coated (ASPIR-81) 81 mg EC tablet ASPIR-81 TABLET DELAYED RELEASE Qc-K7-mjh-yxgz-vhq-cakp-boron (CALTRATE 600-D PLUS MINERALS) 600 mg calcium- 800 unit-40 mg chew CALTRATE 600+D CHEW multivit with minerals/lutein (MULTIVITAMIN 50 PLUS ORAL) SENIOR MULTIVITAMIN PLUS ORAL TABLET lidocain-me.efsvfeg-mevn-luxdt 0.5-20-0.035-5 % ptmd EMLA CREAM PRILOCAINE 2%/LIDOCAINE 2% folic acid 800 mcg tablet folic acid 800 mcg tablet No current facility-administered medications for this visit. PHYSICAL EXAMINATION: VIDEO EXAM: (performed via video enabled technology) GENERAL: alert and appropriate, in no distress, well-hydrated, well nourished and happy, smiling, interactive HEAD: normocephalic, no abnormality or lesion noted RESPIRATORY: breathing non-labored NEUROLOGIC: no obvious deficit ASSESSMENT: Patient is stable. Chronic pain is persistent. Medications are helping Emperatriz Ghosh to have an improved quality of life. Patient compliance with Opioid Contract: patient is compliant Encounter Diagnosis ICD-10-CM 1. Chronic pain syndrome G89.4 2. Myalgia M79.10 3. Acute arthropathy M12.9 4. Radiculitis, thoracic M54.14 PLAN: The patient understands the goal of our treatment is a reduction in pain and/or an improved level of functioning with activities of daily living. If at any time the patient does not feel the medications are helping them to achieve these goals, the medications may be discontinued. The patient reports a reduction in pain and/or an improved level of functioning with activities of daily living, denies any significant adverse effects, is compliant with the pain management agreement and there are no signs of medication misuse, abuse or diversion; therefore, the medications will be continued. The OARRS report has been reviewed and is consistent with the patient s medical history and medication intake. Encouraged to do HEP. Continue Percocet 7.5/325 mg TID Continue Gabapentin managed by Dr. Luda Ann Continue using Lido-Prilo cream. Continue SI joint stabilizer belt from [facility]. Continue HEP. Follow-up with Dr. Soto (hip) prn F/u in 1 month -Please schedule the next appointment in [facility] or call [phone] Option 1. Jaci Nixon APRN.CNP documented in this encounterOhiohealth Berger Hospital06-30-2022 Miscellaneous Notes* Telephone Encounter - Yaneli Cat RN - 02/22/2022 5:08 PM EDT Patient phones requesting refills as follows: Pending Prescriptions Disp Refills OXYCODONE-ACETAMINOPHEN 7.5 MG-325 MG TABLET 90 tablet 0 Sig: Take 1 tablet by mouth three times daily as needed. ANN Class: C-II TELLY: No Please review and advise. Yaneli Cat RN documented in this encounterOhiohealth Berger Hospital06-23-2022 Instructions* Patient Instructions* Fatoumata Lyn DO - 02/15/2022 11:23 AM EDT 1) The OARRS report has been reviewed and is consistent with the patient s medical history and medication intake. 2) Encouraged to do HEP. 3) Continue Percocet 7.5/325 mg TID PRN. .4) Continue Gabapentin managed by Dr. Luda Ann 5) Continue using Lido-Prilo cream. 6) Continue SI joint stabilizer belt from [facility]. 7) Continue HEP. 8) Follow-up with Dr. Soto (hip) prn 9) F/U with JANEY Gold on 03/13/22 via virtual visit. documented in this encounterOhiohealth Berger Hospital06-23-2022 History of Present illness Narrative* Fatoumata Lyn DO - 02/15/2022 10:41 AM EDT DATE: February 15, 2022 Chief Complaint: Lower back and mid back History of Present Illness: Emperatriz Ghosh is a 71 year old year old female being seen at [facility] for a evaluation and/or management of their chronic pain. Since then, the patient comes in today for a SCStim lead pull. She was last seen by me on 02/08/22 for SCStim trial with no significant benefit. She states SCStim didn't helped her with her lower back or mid-thoracic back pain. She states that she continues to have pain in her mid-back and LB. Her VAS is 5/10 today. She had PT for her SIJ dysfunction and Pelvic misalignment with good benefit. She got the SIJ stabilizer belt from [facility] as per our order on her last OV with no benefit. She has been taking Percocet 7.5/325 mg TID PRN, Gabapentin per Dr. Luda Ann, and Lido-Prilo Cream as discussed on her last visit with minimal benefit. She denies any recent falls. She denies any OIC symptoms. She denies any ER visit orhospitalizations. Pain Location: LB and mid back area Pain Scale: 5 on 0-10 scale per patient Duration: (How long have you had the pain?) several years with no precipitating event Pain Character: aching Timing: occurs constantly with exertion Radiation: none Patient Reports: leg weakness The pain is exacerbated by standing and walking The pain is mitigated by sitting and lying down Symptoms interfere with physical activity and social activities History of Falls: None in the past 3 months Patient reports good sleep habits and reports 7 hours of uninterrupted sleep per night. She feels rested in the morning and reports no mood changes. She is currently prescribed Percocet from our office. The patient states the last dose of Percocet was taken today. The medications are effective. Previous studies include: none. Prior pain treatment has included: SCStim trial failed REVIEW OF SYSTEMS: GENERAL: No weight loss, malaise or fevers RESPIRATORY: Negative for cough, hemoptysis, wheezing, COPD, dyspnea or shortness of breath. CARDIOVASCULAR: Negative for chest pain, leg swelling, hypertension, CHF or palpitations GI: No nausea, vomiting, or diarrhea. MUSCULOSKELETAL: Negative for joint pain or swelling, back pain or muscle pain. n/a No past medical history on file. No past surgical history on file. Work Status: on the disability Allergies: Not on File No current outpatient medications on file. No current facility-administered medications for this visit. I have reviewed the nurses notes and I am aware of the family/social history. Since the last evaluation the medical history has not changed. PHYSICAL EXAMINATION: Vitals: There were no vitals taken for this visit. General: Well developed, well nourished, in no acute distress. Walks with an antalgic gait. Uses a cane for ambulation.obese. Msk: Inspection of the spine reveals a midline lumbar scar, which is well healed and unremarkable. Lumbar range of motion is moderately restricted in all planes throughout. There is mild tenderness upon palpation of the lumbar spine, greatest on the right. There are no muscle spasms or trigger points noted in the paraspinal musculature or gluteal muscles. Muscle strength of the lower extremities is +5/5 bilaterally, weaker on the right. Great toe extension is intact bilaterally, weaker on the right.Patellar and Achilles reflexes are intact bilaterally, 2+ on the left, 1+ on the right. Straight leg raise is positive on the right. Sensation in the lower extremities is intact. There is slight tenderness to palpation of the right lateral hip/greater trochanter. ROM is significantly reduced on theright. Magdy s test is + on the right. Well healed surgical scar is noted. There are no s/s infection noted. + Left SI joint tenderness with palpation. Right leg length discrepancy noted ( 0.5 cm). ASSESSMENT: 1. LB pain 2. B/L legs pain Patient is stable. Chronic pain is persistent. Medications are helping Emperatriz R Doerflinger to have an improved quality of life. Patient compliance with Opioid Contract: patient is compliant PDMP website checked and validated. All prescriptions have been APPROPRIATELY filled. No suspiciousactivity was identified. 02/15/2022 by Fatoumata Lyn DO PLAN: 1) The OARRS report has been reviewed and is consistent with the patient s medical history and medication intake. 2) Encouraged to do HEP. 3) Continue Percocet 7.5/325 mg TID PRN. .4) Continue Gabapentin managed by Dr. Luda Ann 5) Continue using Lido-Prilo cream. 6) Continue SI joint stabilizer belt from [facility]. 7) Continue HEP. 8) Follow-up with Dr. Soto (hip) prn 9) F/U with JANEY Gold on 03/13/22 via virtual visit. The patient understands the goal of our treatment is a reduction in pain and/or an improved level of functioning with activities of daily living. If at any time the patient does not feel the medications are helping them to achieve these goals, the medications may be discontinued. The patient reports a reduction in pain and/or an improved level of functioning with activities of daily living, denies any significant adverse effects, is compliant with the pain management agreement and there are no signs of medication misuse, abuse or diversion; therefore, the medications will be continued. Fatoumata Lyn DO documented in this encounterOhiohealth Berger Hospital05-20-2022 NotePhysical Therapy Outpatient Progress Summary Medical Diagnosis: LEG LENGTH DISCREPANCY, SACROILIAC JOINT DYSFUNCTION, LUMBAR SPONDYLOSIS, LUMBAR AND THORACIC RADICULOPATHY, LUMBAR FACET ARTHROPATHY, LUMBAR AND THORACIC DDD, POST-LAMINECTOMY SYNDROME LUMBAR REGION, MYOFASCIAL PAIN SYNDROME, CHRONIC PAIN SYNDROME, H/O BILAT ROJELIO Therapy Diagnosis: Rank Code Description Date of Onset 1 M21.70 Unequal limb length (acquired), unspecified site 12/12/2021 2 M53.3 Sacrococcygeal disorders, not elsewhere 12/12/2021 classified 3 M43.06 Spondylolysis, lumbar region 12/12/2021 4 M54.16 Radiculopathy, lumbar region 12/12/2021 5 M54.14 Radiculopathy, thoracic region 12/12/2021 6 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, lumbar 12/12/2021 region 7 M96.1 Postlaminectomy syndrome, not elsewhere 12/12/2021 classified 8 M47.814 Spondylosis without myelopathy or 12/12/2021 radiculopathy, thoracic region 9 M51.36 Other intervertebral disc degeneration, lumbar 12/12/2021 region 10 M51.34 Other intervertebral disc degeneration, 12/12/2021 thoracic region 11 M79.1 Myalgia 12/12/2021 12 G89.4 Chronic pain syndrome 12/12/2021 13 Z96.641 Presence of right artificial hip joint 12/12/2021 14 Z96.642 Presence of left artificial hip joint 12/12/2021 Demographics: Age: 71Y Gender: Female Medications: Significant rehabilitation considerations: Lisinopril HCTZ 20/25 mg, Omeprazole 20 mg, Tolterodine ER 4 mg, Gabpaentin 300 mg, Meloxicam 15 mg, Simvastatin 20 mg, Latanaprost eye drops 0.005%, Dorzolamide HCL/Timolol Maleate 2%/0.5%, Brimonidine 0.2%, Multivitamin, Cyclobenzaprine 10 mg, Vitamin D 2000 mg, Folic Acid 800 mcg, Low dose aspirin 85 pm, Hydrocodone-Acetaminophen 5-325 mg, Lidocaine-Prilocaine cream Allergies: Significant rehabilitation considerations: NKDA Rehabilitation Precautions/Restrictions: General Spine Precautions Referring/Attending MD:Dr. Fatoumata Lyn Patient Report: PATIENT REPORTS THAT THE LEFT SIDE OF HER BACK HAS FELT BETTER [facility] PATIENT NAME: EMPERATRIZ GHOSH [address] [facility] [address] MEDICAL REC #: [id number] [place] [address] ADMIT DATE: SERVICE DATE: 01/12/22 Physical Therapy Progress Note ATTENDING PHY: Riki,Jamesetta H DO SINCE STARTING THERAPY AND FELT THAT THE KNOT IN THIS AREA THAT SHE HAD FOR YEARS IS GONE. SHE STILL HAS TIGHTNESS IN THE L SIDE AND DOES STILL FEEL ISSUES WITH THE R SIDE OF HER BACK. SHE RATES HER PAIN LEVEL AT 4 OUT OF 10 OVERALL. SHE IS NOTICING SOME R SIDED HIP/LOWER BACK PAIN. SHE IS TO SEE DR. FATOUMATA LYN IN THE SUMMER 2021. SHE IS AWAITING A POSSIBLE SPINAL SIMULATOR IMPLANT THIS SUMMER WELL. CURRENT FUNCTIONAL LIMITATIONS: *CAN TOLERATE STATIONARY STANDING 10-15 MIN, BUT THIS IS LESS IS SHE IS DOING ACTIVITIES *SITS NEEDED FOR ADL TASKS *PERCOCET AT 2-3/DAY AND SLEEPS BETTER IF SHE TAKES THE 3RD DOSE Temperature and COVID check completed. Temperature WNL and Negative for COVID exposure and symptoms Patient/Caregiver Goals: Be able to walk with minimum pain Pain: Patient currently has pain. Patient reports a pain level of 4 out of 10. Interventions: REASSESSMENT, STM, THER EX, MH W/ IFC Range of Motion Trunk/Pelvis: AROM Right AROM Left Single Values LUMBAR Flexion - - 70 deg, pain to ex Extension - - 10 deg Lateral Flexion 20 deg 15 deg - Rotation WFL WFL - Lower Extremity: AROM Right AROM Left PROM Right PROM Left LOWER EXTREMITY Gross ROM Assessment WFL/WNL Excep WFL/WNL Excep - - HIP Flexion 90 deg 90 deg - - Ext Rotation Dec. 50% Dec. 50% - - Adduction Dec. 25% Dec. 25% - - Strength Trunk/Spine/Pelvis: Single Values Right Left TRUNK Trunk Flexors 3+/5 grossly - - Trunk Extensors 4/5, pain - - Lower Extremity: Right Left HIP Flexors 4-4+/5 4-4+/5 Abductors 4-4+/5 4-4+/5 [facility] PATIENT NAME: EMPERATRIZ GHOSH R [address] [facility] [address] MEDICAL REC #: [id number] [place] [address] ADMIT DATE: SERVICE DATE: 01/12/22 Physical Therapy Progress Note ATTENDING PHY: Fatoumata Lyn DO Adductors 4/5 4/5 KNEE Flexors (hamstrings) 4+/5 4-4+/5 Extensors (quads) 4-4+/5 4/5 ANKLE Dorsiflexion 4+-5/5 4+-5/5 Plantarflexion 4+/5 4+/5 PT Exercises: ACTIVITY SETS/REPS Physical Therapy Exercise 1 PASSIVE HIP STRETCHING BRUNILDA X 5 REPS W/ 10 SEC HOLD Exercise 2 SUPINE ABDOMINAL SETS 2 X 15 REPS Exercise 3 SUPINE GLUTE SETS 2 X 15 REPS Exercise 4 SUPINE RESISTED HIP ADD 2 X 15 REPS Exercise 5 SUPINE RESISTED HIP ABD 2 X 15 REPS Interventions: Manual Therapy: STM TO BILAT LUMBOSACRAL PARASPINALS AND L GLUTEAL/LATERAL PROXIMAL ILIAC CREST LEVEL. PT TOLERATED MODERATE PRESSURE, BUT WAS TENDER TO PALPATION AT THE MID LATERAL L GL (more content not included)...[facility]04-19-2022 NotePhysical Therapy Outpatient Evaluation Medical Diagnosis: LEG LENGTH DISCREPANCY, SACROILIAC JOINT DYSFUNCTION, LUMBAR SPONDYLOSIS, LUMBAR AND THORACIC RADICULOPATHY, LUMBAR FACET ARTHROPATHY, LUMBAR AND THORACIC DDD, POST-LAMINECTOMY SYNDROME LUMBAR REGION, MYOFASCIAL PAIN SYNDROME, CHRONIC PAIN SYNDROME, H/O BILAT ROJELIO Therapy Diagnosis: Rank Code Description Date of Onset 1 M21.70 Unequal limb length (acquired), unspecified site 12/12/2021 2 M53.3 Sacrococcygeal disorders, not elsewhere 12/12/2021 classified 3 M43.06 Spondylolysis, lumbar region 12/12/2021 4 M54.16 Radiculopathy, lumbar region 12/12/2021 5 M54.14 Radiculopathy, thoracic region 12/12/2021 6 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, lumbar 12/12/2021 region 7 M96.1 Postlaminectomy syndrome, not elsewhere 12/12/2021 classified 8 M47.814 Spondylosis without myelopathy or 12/12/2021 radiculopathy, thoracic region 9 M51.36 Other intervertebral disc degeneration, lumbar 12/12/2021 region 10 M51.34 Other intervertebral disc degeneration, 12/12/2021 thoracic region 11 M79.1 Myalgia 12/12/2021 12 G89.4 Chronic pain syndrome 12/12/2021 13 Z96.641 Presence of right artificial hip joint 12/12/2021 14 Z96.642 Presence of left artificial hip joint 12/12/2021 Demographics: Age: 71Y Gender: Female Primary Language: Australian Preferred Language: Australian Initial Evaluation Date: 12/12/2021 Referring Clinician: Dr. Fatoumata Lyn Referring Service/Team: Pain Management Concurrent Services: None. Screening for COVID-19 Does the patient/client present any of the following symptoms? Response Symptoms Cough No [facility] PATIENT NAME: EMPERATRIZ GHOSH [address] [facility] [address] MEDICAL REC #: [id number] [place] [address] ADMIT DATE: SERVICE DATE: 12/12/21 Physical Therapy Evaluation ATTENDING SALOMÓNY: Fatoumata Lyn DO Fever No Sore Throat No Shortness of Breath No Fatigue No New Confusion No Has the patient/client traveled outside of the state within the last 14 days to states with confirmed cases of COVID-19? No Has the patient/client been in contact with anyone with a confirmed or suspected diagnosis of COVID-19? No Medical Care Prior to Current Episode: PT HAS HAD TRIGGER POINT INJECTIONS TO THIS REGION RECENTLY. SHE HAS BEEN IN PAIN MANAGEMENT FOR MANY YEARS WITH DR. FATOUMATA LYN. Past Medical History: Hysterectomy, Glaucoma, Spinal stenosis, L ROJELIO 2004, R ROJELIO 2015, JAN, R TKA 2011, LINDY, HTN, Spinal fusion L1-L3 in 2011 and L3-L4 in 2015, GERD, Hiatal hernia, OA Pain Management: Lower spine cortisone injections 02/2013, L Facet Joint Injection 07/2013, Medial Branch Neurotomy L side 11/2013, RFA -01/2015, L and R Sacral Spine Facet Joint Injections, SI Joint Injection, RFA L and R Lower Spine 07/2018 and 08/2018, RFA L and R lower spine, January 13January 2020 RFA L and R Lower Spine History of Present Illness: Date of Onset: 2004 onset since first L ROJELIO Additional Information: PT REPORTS ONSET OF SYMPTOMS SINCE 2004 FOLLOWING HER L ROJELIO. SHE STATES THAT SHE HAS A COMPRESSION TYPE PAIN THAT FEELS LIKE IT IS BEING TIGHTENED AND OCCURS AT THE L PROXIMAL SACRAL REGION AND SEEMS TO HAVE EXPANDED INTO THE L GLUTEAL REGION. PT HAS HAD SOME TRIGGER POINT INJECTIONS AND A LOCAL CORTISONE INJECTION THAT DID NOT SEEM TO HELP PER PT. PT IS TO BE SET UP ON A SPINAL IMPLANT TRIAL AND WILL BE SEEING DR. FATOUMATA LYN FOR THIS PROCEDURE. SHE SEES PAIN MANAGEMENT MONTHLY TO GET HER PAIN PRESCRIPTIONS. SHE STATES THAT [facility] CAN TAKE OFF THE EDGE OF HER PAIN, BUT IT DOES NOT GIVE HER A LOT OF RELIEF. SHE ALSO USES HER LIDOCAINE-PRILOCAINE CREAM AND MH FOR PAIN REDUCTION. Illness Severity or Complexity: MODERATE COMPLEXITY DUE TO MULTIPLE ORTHOPEDIC CO-MORBIDITIES, H/O TRIGGER POINT AND CORTISONE INJECTIONS AND RFA, CHRONICITY OF SYMPTOMS. Medications: Significant rehabilitation considerations: Lisinopril HCTZ 20/25 mg, Omeprazole 20 mg, Tolterodine ER 4 mg, Gabapentin 300 mg, Meloxicam 15 mg, Simvastatin 20 mg, Latanaprost eye drops 0.005%, Dorzolamide HCL/Timolol Maleate 2%/0.5%, Brimonidine 0.2%, Multi vitamin, Cyclobenzaprine 10 mg, Vitamin D 2000 mg, Folic Acid 800 mcg, Low dose aspirin 85 pm, Hydrocodone-Acetaminophen 5-325 mg, Lidocaine-Prilocaine cream Allergies: Significant rehabilitation considerations: NKA [facility] PATIENT NAME: EMPERATRIZ GHOSH [address] [facility] [address] MEDICAL REC #: [id number] [place] [address] ADMIT DATE: SERVICE DATE: 12/12/21 Physical Therapy Evaluation ATTENDING AZALIA: Fatoumata Lyn DO Rehabilitation Precautions/Restrictions: General Spine Precautions SUBJECTIVE Premorbid Functional Level: The patient reported the premorbid leve (more content not included)...[facility] No data available for this section [facility] Evaluation + Plan note Future Appointments Appointment Date:07/25/2023 10:00:00 AM Scheduled Provider: Location:[facility] Appointment Type:CT Chest w/o Contrast Future Scheduled Tests Radiology* CT Thorax w/o Contrast 07/25/23 [facility] Evaluation note* Diagnosis Intervertebral disc disorder with radiculopathy of lumbar region Thoracic or lumbosacral neuritis or radiculitis, unspecified DDD (degenerative disc disease), lumbar Degeneration of lumbar or lumbosacral intervertebral disc [facility] Diagnosis Chronic pain syndrome- Primary [facility] Diagnosis Chronic pain syndrome- Primary Myalgia Mylagia and myositis, unspecified Acute arthropathy Arthropathy, unspecified, site unspecified Radiculitis, thoracic Thoracic or lumbosacral neuritis or radiculitis, unspecified [facility] Diagnosis Chronic pain syndrome- Primary Lumbar radiculopathy Thoracic or lumbosacral neuritis or radiculitis, unspecified DDD (degenerative disc disease), lumbar Degeneration of lumbar or lumbosacral intervertebral disc [facility] syndrome [facility] Diagnosis Dyspnea on exertion Other dyspnea and respiratory abnormality [facility] Diagnosis Dyspnea on exertion Other dyspnea and respiratory abnormality [facility] Diagnosis Lumbar postlaminectomy syndrome- Primary Postlaminectomy syndrome, lumbar region [facility] Diagnosis Obstructive sleep apnea- Primary Obstructive sleep apnea (adult) (pediatric) Lumbar postlaminectomy syndrome Postlaminectomy syndrome, lumbar region documented in this encounter [facility]* Diagnosis Chronic pain syndrome Lumbar postlaminectomy syndrome Postlaminectomy syndrome, lumbar region documented in this encounter [facility] note* Diagnosis High risk medication use- Primary Encounter for long-term (current) use of other medications Lumbar postlaminectomy syndrome Postlaminectomy syndrome, lumbar region documented in this encounter [facility] note* Diagnosis Lumbar postlaminectomy syndrome- Primary Postlaminectomy syndrome, lumbar region Lumbar radiculopathy Thoracic or lumbosacral neuritis or radiculitis, unspecified DDD (degenerative disc disease), lumbar Degeneration of lumbar or lumbosacral intervertebral disc Intervertebral disc disorder with radiculopathy of lumbar region Thoracic or lumbosacral neuritis or radiculitis, unspecified Myalgia Mylagia and myositis, unspecified Acute arthropathy Arthropathy, unspecified, site unspecified Radiculitis, thoracic Thoracic or lumbosacral neuritis or radiculitis, unspecified Other chronic pain Lumbar postlaminectomy syndrome Postlaminectomy syndrome, lumbar region documented in this encounter [facility] note* Diagnosis Lumbar postlaminectomy syndrome [M96.1 (ICD-10-CM)]- Primary Postlaminectomy syndrome, lumbar region Radiculopathy, lumbar region [M54.16 (ICD-10-CM)] Thoracic or lumbosacral neuritis or radiculitis, unspecified DDD (degenerative disc disease), lumbar [M51.36 (ICD-10-CM)] Degeneration of lumbar or lumbosacral intervertebral disc Intervertebral disc disorder with radiculopathy of lumbar region [M51.16 (ICD-10-CM)] Thoracic or lumbosacral neuritis or radiculitis, unspecified Myalgia [M79.10 (ICD-10-CM)] Mylagia and myositis, unspecified History of arthroplasty [Z98.890 (ICD-10-CM)] Other postprocedural status Other chronic pain [G89.29 (ICD-10-CM)] Other chronic pain Implantable intrathecal infusion pump present documented in this encounter [facility] note* Diagnosis Lumbar postlaminectomy syndrome Postlaminectomy syndrome, lumbar region [facility] Diagnosis Lumbar postlaminectomy syndrome- Primary Postlaminectomy syndrome, lumbar region Radiculopathy, lumbar region [M54.16 (ICD-10-CM)] Thoracic or lumbosacral neuritis or radiculitis, unspecified DDD (degenerative disc disease), lumbar [M51.36 (ICD-10-CM)] Degeneration of lumbar or lumbosacral intervertebral disc Intervertebral disc disorder with radiculopathy of lumbar region [M51.16 (ICD-10-CM)] Thoracic or lumbosacral neuritis or radiculitis, unspecified Myalgia [M79.10 (ICD-10-CM)] Mylagia and myositis, unspecified History of arthroplasty [Z98.890 (ICD-10-CM)] Other postprocedural status Other chronic pain [G89.29 (ICD-10-CM)] Other chronic pain Implantable intrathecal infusion pump present Radiculitis, thoracic Thoracic or lumbosacral neuritis or radiculitis, unspecified High risk medication use Encounter for long-term (current) use of other medications Chronic pain syndrome [facility] Diagnosis Lumbar postlaminectomy syndrome Postlaminectomy syndrome, lumbar region Lumbar radiculopathy Thoracic or lumbosacral neuritis or radiculitis, unspecified DDD (degenerative disc disease), lumbar Degeneration of lumbar or lumbosacral intervertebral disc Intervertebral disc disorder with radiculopathy of lumbar region Thoracic or lumbosacral neuritis or radiculitis, unspecified Acute arthropathy Arthropathy, unspecified, site unspecified Radiculitis, thoracic Thoracic or lumbosacral neuritis or radiculitis, unspecified [facility]* Diagnosis Lumbar postlaminectomy syndrome Postlaminectomy syndrome, lumbar region [facility] Diagnosis Lumbar postlaminectomy syndrome- Primary Postlaminectomy syndrome, lumbar region Acute arthropathy Arthropathy, unspecified, site unspecified History of arthroplasty [Z98.890 (ICD-10-CM)] Other postprocedural status Lumbar radiculopathy Thoracic or lumbosacral neuritis or radiculitis, unspecified DDD (degenerative disc disease), lumbar Degeneration of lumbar or lumbosacral intervertebral disc Intervertebral disc disorder with radiculopathy of lumbar region Thoracic or lumbosacral neuritis or radiculitis, unspecified Myalgia [M79.10 (ICD-10-CM)] Mylagia and myositis, unspecified Radiculitis, thoracic Thoracic or lumbosacral neuritis or radiculitis, unspecified Other chronic pain [G89.29 (ICD-10-CM)] Other chronic pain Radiculopathy, lumbar region [M54.16 (ICD-10-CM)] Thoracic or lumbosacral neuritis or radiculitis, unspecified Implantable intrathecal infusion pump present High risk medication use Encounter for long-term (current) use of other medications Chronic pain syndrome Myofascial pain syndrome Mylagia and myositis, unspecified Morbid obesity (HCC) Morbid obesity documented in this encounter [facility] note* Diagnosis Lumbar postlaminectomy syndrome Postlaminectomy syndrome, lumbar region documented in this encounter [facility] note* Diagnosis Lumbar postlaminectomy syndrome- Primary Postlaminectomy syndrome, lumbar region Acute arthropathy Arthropathy, unspecified, site unspecified Lumbar radiculopathy Thoracic or lumbosacral neuritis or radiculitis, unspecified DDD (degenerative disc disease), lumbar Degeneration of lumbar or lumbosacral intervertebral disc Intervertebral disc disorder with radiculopathy of lumbar region Thoracic or lumbosacral neuritis or radiculitis, unspecified Other chronic pain [G89.29 (ICD-10-CM)] Other chronic pain Radiculitis, thoracic Thoracic or lumbosacral neuritis or radiculitis, unspecified Radiculopathy, lumbar region [M54.16 (ICD-10-CM)] Thoracic or lumbosacral neuritis or radiculitis, unspecified History of arthroplasty [Z98.890 (ICD-10-CM)] Other postprocedural status Implantable intrathecal infusion pump present Myalgia [M79.10 (ICD-10-CM)] Mylagia and myositis, unspecified documented in this encounter [facility] note* Diagnosis Lumbar postlaminectomy syndrome Postlaminectomy syndrome, lumbar region [facility]* Diagnosis Lumbar postlaminectomy syndrome- Primary Postlaminectomy syndrome, lumbar region Acute arthropathy Arthropathy, unspecified, site unspecified DDD (degenerative disc disease), lumbar Degeneration of lumbar or lumbosacral intervertebral disc Lumbar radiculopathy Thoracic or lumbosacral neuritis or radiculitis, unspecified Intervertebral disc disorder with radiculopathy of lumbar region Thoracic or lumbosacral neuritis or radiculitis, unspecified Other chronic pain Radiculitis, thoracic Thoracic or lumbosacral neuritis or radiculitis, unspecified Radiculopathy, lumbar region [M54.16 (ICD-10-CM)] Thoracic or lumbosacral neuritis or radiculitis, unspecified History of arthroplasty [Z98.890 (ICD-10-CM)] Other postprocedural status Implantable intrathecal infusion pump present Myalgia [M79.10 (ICD-10-CM)] Mylagia and myositis, unspecified Myofascial pain syndrome Mylagia and myositis, unspecified documented in this encounter [facility] note* Diagnosis Lumbar postlaminectomy syndrome- Primary Postlaminectomy syndrome, lumbar region Acute arthropathy Arthropathy, unspecified, site unspecified DDD (degenerative disc disease), lumbar Degeneration of lumbar or lumbosacral intervertebral disc Lumbar radiculopathy Thoracic or lumbosacral neuritis or radiculitis, unspecified Intervertebral disc disorder with radiculopathy of lumbar region Thoracic or lumbosacral neuritis or radiculitis, unspecified History of arthroplasty [Z98.890 (ICD-10-CM)] Other postprocedural status Other chronic pain Implantable intrathecal infusion pump present Radiculitis, thoracic Thoracic or lumbosacral neuritis or radiculitis, unspecified Myalgia [M79.10 (ICD-10-CM)] Mylagia and myositis, unspecified Radiculopathy, lumbar region [M54.16 (ICD-10-CM)] Thoracic or lumbosacral neuritis or radiculitis, unspecified documented in this encounter [facility] note* Diagnosis Decreased range of motion of left knee- Primary Weakness Other malaise and fatigue Presence of left artificial knee joint Knee joint replacement by other means [facility] Diagnosis Decreased range of motion of left knee- Primary Weakness Other malaise and fatigue Presence of left artificial knee joint Knee joint replacement by other means [facility]* Diagnosis Decreased range of motion of left knee- Primary Presence of left artificial knee joint Knee joint replacement by other means Weakness Other malaise and fatigue [facility]* Diagnosis Decreased range of motion of left knee- Primary Presence of left artificial knee joint Knee joint replacement by other means Weakness Other malaise and fatigue [facility]* Diagnosis Decreased range of motion of left knee- Primary Presence of left artificial knee joint Knee joint replacement by other means Weakness Other malaise and fatigue [facility]* Diagnosis Decreased range of motion of left knee- Primary Presence of left artificial knee joint Knee joint replacement by other means Weakness Other malaise and fatigue [facility]* Diagnosis Decreased range of motion of left knee- Primary Presence of left artificial knee joint Knee joint replacement by other means Weakness Other malaise and fatigue [facility]* Diagnosis Decreased range of motion of left knee- Primary Presence of left artificial knee joint Knee joint replacement by other means Weakness Other malaise and fatigue [facility]* Diagnosis Decreased range of motion of left knee- Primary Presence of left artificial knee joint Knee joint replacement by other means Weakness Other malaise and fatigue [facility]* Diagnosis Decreased range of motion of left knee- Primary Presence of left artificial knee joint Knee joint replacement by other means Weakness Other malaise and fatigue [facility]* Diagnosis Lumbar postlaminectomy syndrome Postlaminectomy syndrome, lumbar region [facility]* Diagnosis Lumbar postlaminectomy syndrome Postlaminectomy syndrome, lumbar region [facility]* Diagnosis Decreased range of motion of left knee- Primary Presence of left artificial knee joint Knee joint replacement by other means Weakness Other malaise and fatigue [facility]* Diagnosis Implantable intrathecal infusion pump present- Primary Other chronic pain Diffuse myofascial pain syndrome Mylagia and myositis, unspecified [facility]* Diagnosis Lumbar postlaminectomy syndrome- Primary Postlaminectomy syndrome, lumbar region Lumbar spondylosis Lumbosacral spondylosis without myelopathy Sacroiliitis (HCC) Sacroiliitis, not elsewhere classified Lumbar radiculopathy Thoracic or lumbosacral neuritis or radiculitis, unspecified Radiculitis, thoracic Thoracic or lumbosacral neuritis or radiculitis, unspecified Myofascial pain syndrome Mylagia and myositis, unspecified Carpal tunnel syndrome, bilateral Carpal tunnel syndrome Implantable intrathecal infusion pump present [facility]* Diagnosis Decreased range of motion of left knee- Primary Presence of left artificial knee joint Knee joint replacement by other means Weakness Other malaise and fatigue [facility]* Diagnosis Decreased range of motion of left knee- Primary Presence of left artificial knee joint Knee joint replacement by other means Weakness Other malaise and fatigue documented [facility]* Diagnosis Lumbar postlaminectomy syndrome Postlaminectomy syndrome, lumbar region documented in this encounter [facility] note* Diagnosis Coronary artery calcification seen on CT scan- Primary Dyspnea, unspecified type Hypercholesterolemia Pure hypercholesterolemia Primary hypertension Unspecified essential hypertension BMI 40.0-44.9, adult ([facility]) Body Mass Index 40.0-44.9, adult Encounter for screening for cardiovascular disorders Screening for other and unspecified cardiovascular conditions documented in this encounter [facility] note* Diagnosis Hypercholesterolemia- Primary Pure hypercholesterolemia Coronary artery disease involving [place] coronary artery of [place] heart without angina pectoris Chest discomfort Other chest pain Abnormal stress test Other nonspecific abnormal cardiovascular system function study documented in this encounter [facility] note* Diagnosis Coronary artery calcification seen on CT scan Dyspnea, unspecified type Chest discomfort Other chest pain Abnormal stress test Other nonspecific abnormal cardiovascular system function study documented in this encounter [facility] noteNo assessment information availableMission Bernal [facility] Work Phone: Hospital Discharge instructions No data available for this section [facility] Progress note No data available for this section [facility] Reason for referral (narrative)* Diagnostic Procedure Only (Routine) - Authorized Specialty Diagnoses / Procedures Referred By Contac t Referred To Contact MOLECULAR & FUNCTIONAL IMAGING Diagnoses Coronary artery calcification seen on CT scan Dyspnea, unspecified type Encounter for screening for cardiovascular disorders Procedures NM CARDIAC PERF STRESS/PHARM MYOCARDIAL SPECT MULTIPLE STUDIES Mahamed Cardona MD [address] [employer] [facility] [address] [place] [address] Molecular & Functional Imaging [address] [place] [address] Referral ID Status Reason Start Date Expiration Date Visits Requested Visits Authorized [id number] Authorized Auto-Generat ed Referral 07/25/2025 1 1 [facility]No reason for referral information availableMission [facility]al [facility] Work Phone: Reason for visit Narrative* Diagnostic Procedure Only (Routine) - Closed Specialty Diagnoses / Procedures Referred By Contac t Referred To Contact MOLECULAR & FUNCTIONAL IMAGING Diagnoses Coronary artery calcification seen on CT scan Dyspnea, unspecified type Encounter for screening for cardiovascular disorders Procedures NM CARDIAC PERF STRESS/PHARM [employer] M[employer] STUDIES Mahamed Cardona MD [address] [address] [place] [address] [facility] [address] [place] [address] Referral ID Status Reason Start Date Expiration Date V isits Requested Visits Authorized [id number] Closed Auto-Generate d Referral 07/25/2024 07/25/2025 2 2 [facility] Summary Purpose Family History No Family History Records FoundNo Family History Records Found No data available for this section No Family History Records FoundNo Family History Records FoundNo Family History Records FoundNo Family History Records Found Advance Directives No Advanced Directives Records FoundDocuments on File Type Date Recorded 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 Advance Directive(s) 02/09/2022 10:16 AM Latest Code Status on File Code Status Date Activated Date Inactivated Comments Full Code 09/05/2022 9:03 AM Full Code Order Discussed With: Patient Latest Code Status on File Code Status Date Activated Date Inactivated Comments Full Code 09/05/2022 9:03 AM 09/07/2022 4:17 PM Latest Code Status on File Code Status Date Activated Date Inactivated Comments Full Code 09/05/2022 9:03 AM 09/07/2022 4:17 PM Latest Code Status on File Code Status Date Activated Date Inactivated Comments Full Code 09/05/2022 9:03 AM 09/07/2022 4:17 PM Question Answer Comments Full Code Order Discussed With: Patient Date Activated Date Inactivated Comments 09/05/2022 9:03 AM 09/07/2022 4:17 PM Question Answer Comments Full Code Order Discussed With: Patient Date Activated Date Inactivated Comments 09/05/2022 9:03 AM 09/07/2022 4:17 PM Question Answer Comments Full Code Order Discussed With: Patient Health Concerns Infection Onset Date Last Indicated Resolved Time COVID-19 Rule-Out 09/03/2022 09/03/2022 Infection Onset Date Last Indicated Resolved Time COVID-19 Rule-Out 09/03/2022 09/06/2022 09/07/2022 9:39 AM EST Reason for Referral Specialty Diagnoses / Procedures Referred By Alexei harp Referred To Contact [facility] Diagnoses Lumbar postlaminectomy syndrome Radiculopathy, lumbar region DDD (degenerative disc disease), lumbar Intervertebral disc disorder with radiculopathy of lumbar region Myalgia History of arthroplasty Other chronic pain Implantable intrathecal infusion pump present Radiculitis, thoracic High risk medication use Chronic pain syndrome Procedures CONSULT TO PHYSICAL THERAPY PHYSICAL THERAPY EVALUATION HIGH COMPLEX 45 MINS Fatoumata Lyn, DO [address] [place] [address] [facility] [address] [address] Referral ID Status Reason Start Date Expiration Date Visits Requested Visits Authorized [id number] Authorized PCP Requested Referral Auto-Generate d Referral 10/29/2022 10/29/2023 99 99 Chief Complaint and Reason for Visit Chief Complaint Admit Date LUMBAR SPINE February 25, 2025 2:43p m room 2 February 25, 2025 3:01p m Additional Source Comments INFORMATION SOURCE (unrecogn ized section and content) DATE CREATED AUTHOR [facility]/29/2020 [facility] DATE CREATED AUTHOR AUTHOR'S ORGANIZ ATION 03/15/2022 [facility] [place] DATE CREATED AUTHOR AUTHOR'S ORGANIZ ATION 02/06/2024 [facility] ([place]) DATE CREATED AUTHOR AUTHOR'S ORGANIZ ATION 06/21/2024 [facility] DATE CREATED AUTHOR AUTHOR'S ORGANIZ ATION 10/25/2024 [facility] DATE CREATED AUTHOR AUTHOR'S ORGANIZ ATION 03/28/2025 [facility] Source Comments (unrecognize d section and content) In the event this informatio n is protected by the Federal Confidentiality of Alcohol and Drug Abuse Patient Records regulations: The Federal rules restrict any use of the information to criminally investigate or prosecute any alcohol or drug abuse patient.[facility] the event this information is protected by the Federal Confidentiality of Alcohol and Drug Abuse Patient Records regulations: The Federal rules restrict any use of the information to criminally investigate or prosecute any alcohol or drug abuse patient.[facility] HospitalIn the event this information is protected by the Federal Confidentiality of Alcohol and Drug Abuse Patient Records regulations: The Federal rules restrict any use of the information to criminally investigate or prosecute any alcohol or drug abuse patient.[facility] HospitalIn the event this information is protected by the Federal Confidentiality of Alcohol and Drug Abuse Patient Records regulations: The Federal rules restrict any use of the information to criminally investigate or prosecute any alcohol or drug abuse patient.[facility] HospitalIn the event this information is protected by the Federal Confidentiality of Alcohol and Drug Abuse Patient Records regulations: The Federal rules restrict any use of the information to criminally investigate or prosecute any alcohol or drug abuse patient.[facility] HospitalIn the event this information is protected by the Federal Confidentiality of Alcohol and Drug Abuse Patient Records regulations: The Federal rules restrict any use of the information to criminally investigate or prosecute any alcohol or drug abuse patient.[facility] HospitalIn the event this information is protected by the Federal Confidentiality of Alcohol and Drug Abuse Patient Records regulations: The Federal rules restrict any use of the information to criminally investigate or prosecute any alcohol or drug abuse patient.[facility] HospitalIn the event this information is protected by the Federal Confidentiality of Alcohol and Drug Abuse Patient Records regulations: The Federal rules restrict any use of the information to criminally investigate or prosecute any alcohol or drug abuse patient.[facility] HospitalIn the event this information is protected by the Federal Confidentiality of Alcohol and Drug Abuse Patient Records regulations: The Federal rules restrict any use of the information to criminally investigate or prosecute any alcohol or drug abuse patient.[facility] HospitalIn the event this information is protected by the Federal Confidentiality of Alcohol and Drug Abuse Patient Records regulations: The Federal rules restrict any use of the information to criminally investigate or prosecute any alcohol or drug abuse patient.[facility] HospitalIn the event this information is protected by the Federal Confidentiality of Alcohol and Drug Abuse Patient Records regulations: The Federal rules restrict any use of the information to criminally investigate or prosecute any alcohol or drug abuse patient.[facility] HospitalIn the event this information is protected by the Federal Confidentiality of Alcohol and Drug Abuse Patient Records regulations: The Federal rules restrict any use of the information to criminally investigate or prosecute any alcohol or drug abuse patient.[facility] HospitalIn the event this information is protected by the Federal Confidentiality of Alcohol and Drug Abuse Patient Records regulations: The Federal rules restrict any use of the information to criminally investigate or prosecute any alcohol or drug abuse patient.[facility] HospitalIn the event this information is protected by the Federal Confidentiality of Alcohol and Drug Abuse Patient Records regulations: The Federal rules restrict any use of the information to criminally investigate or prosecute any alcohol or drug abuse patient.[facility] HospitalIn the event this information is protected by the Federal Confidentiality of Alcohol and Drug Abuse Patient Records regulations: The Federal rules restrict any use of the information to criminally investigate or prosecute any alcohol or drug abuse patient.[facility] HospitalIn the event this information is protected by the Federal Confidentiality of Alcohol and Drug Abuse Patient Records regulations: The Federal rules restrict any use of the information to criminally investigate or prosecute any alcohol or drug abuse patient.[facility] HospitalIn the event this information is protected by the Federal Confidentiality of Alcohol and Drug Abuse Patient Records regulations: The Federal rules restrict any use of the information to criminally investigate or prosecute any alcohol or drug abuse patient.[facility] HospitalIn the event this information is protected by the Federal Confidentiality of Alcohol and Drug Abuse Patient Records regulations: The Federal rules restrict any use of the information to criminally investigate or prosecute any alcohol or drug abuse patient.[facility] HospitalIn the event this information is protected by the Federal Confidentiality of Alcohol and Drug Abuse Patient Records regulations: The Federal rules restrict any use of the information to criminally investigate or prosecute any alcohol or drug abuse patient.[facility] HospitalIn the event this information is protected by the Federal Confidentiality of Alcohol and Drug Abuse Patient Records regulations: The Federal rules restrict any use of the information to criminally investigate or prosecute any alcohol or drug abuse patient.[facility] HospitalIn the event this information is protected by the Federal Confidentiality of Alcohol and Drug Abuse Patient Records regulations: The Federal rules restrict any use of the information to criminally investigate or prosecute any alcohol or drug abuse patient.[facility] HospitalIn the event this information is protected by the Federal Confidentiality of Alcohol and Drug Abuse Patient Records regulations: The Federal rules restrict any use of the information to criminally investigate or prosecute any alcohol or drug abuse patient.[facility] HospitalIn the event this information is protected by the Federal Confidentiality of Alcohol and Drug Abuse Patient Records regulations: The Federal rules restrict any use of the information to criminally investigate or prosecute any alcohol or drug abuse patient.[facility] HospitalIn the event this information is protected by the Federal Confidentiality of Alcohol and Drug Abuse Patient Records regulations: The Federal rules restrict any use of the information to criminally investigate or prosecute any alcohol or drug abuse patient.[facility] HospitalIn the event this information is protected by the Federal Confidentiality of Alcohol and Drug Abuse Patient Records regulations: The Federal rules restrict any use of the information to criminally investigate or prosecute any alcohol or drug abuse patient.[facility] HospitalIn the event this information is protected by the Federal Confidentiality of Alcohol and Drug Abuse Patient Records regulations: The Federal rules restrict any use of the information to criminally investigate or prosecute any alcohol or drug abuse patient.[facility] HospitalIn the event this information is protected by the Federal Confidentiality of Alcohol and Drug Abuse Patient Records regulations: The Federal rules restrict any use of the information to criminally investigate or prosecute any alcohol or drug abuse patient.[facility] HospitalIn the event this information is protected by the Federal Confidentiality of Alcohol and Drug Abuse Patient Records regulations: The Federal rules restrict any use of the information to criminally investigate or prosecute any alcohol or drug abuse patient.[facility] HospitalIn the event this information is protected by the Federal Confidentiality of Alcohol and Drug Abuse Patient Records regulations: The Federal rules restrict any use of the information to criminally investigate or prosecute any alcohol or drug abuse patient.[facility] HospitalIn the event this information is protected by the Federal Confidentiality of Alcohol and Drug Abuse Patient Records regulations: The Federal rules restrict any use of the information to criminally investigate or prosecute any alcohol or drug abuse patient.[facility] HospitalIn the event this information is protected by the Federal Confidentiality of Alcohol and Drug Abuse Patient Records regulations: The Federal rules restrict any use of the information to criminally investigate or prosecute any alcohol or drug abuse patient.[facility] HospitalIn the event this information is protected by the Federal Confidentiality of Alcohol and Drug Abuse Patient Records regulations: The Federal rules restrict any use of the information to criminally investigate or prosecute any alcohol or drug abuse patient.[facility] HospitalIn the event this information is protected by the Federal Confidentiality of Alcohol and Drug Abuse Patient Records regulations: The Federal rules restrict any use of the information to criminally investigate or prosecute any alcohol or drug abuse patient.[facility] HospitalIn the event this information is protected by the Federal Confidentiality of Alcohol and Drug Abuse Patient Records regulations: The Federal rules restrict any use of the information to criminally investigate or prosecute any alcohol or drug abuse patient.[facility] HospitalIn the event this information is protected by the Federal Confidentiality of Alcohol and Drug Abuse Patient Records regulations: The Federal rules restrict any use of the information to criminally investigate or prosecute any alcohol or drug abuse patient.[facility] HospitalIn the event this information is protected by the Federal Confidentiality of Alcohol and Drug Abuse Patient Records regulations: The Federal rules restrict any use of the information to criminally investigate or prosecute any alcohol or drug abuse patient.[facility] HospitalIn the event this information is protected by the Federal Confidentiality of Alcohol and Drug Abuse Patient Records regulations: The Federal rules restrict any use of the information to criminally investigate or prosecute any alcohol or drug abuse patient.[facility] HospitalIn the event this information is protected by the Federal Confidentiality of Alcohol and Drug Abuse Patient Records regulations: The Federal rules restrict any use of the information to criminally investigate or prosecute any alcohol or drug abuse patient.[facility] HospitalIn the event this information is protected by the Federal Confidentiality of Alcohol and Drug Abuse Patient Records regulations: The Federal rules restrict any use of the information to criminally investigate or prosecute any alcohol or drug abuse patient.[facility] HospitalIn the event this information is protected by the Federal Confidentiality of Alcohol and Drug Abuse Patient Records regulations: The Federal rules restrict any use of the information to criminally investigate or prosecute any alcohol or drug abuse patient.[facility] HospitalIn the event this information is protected by the Federal Confidentiality of Alcohol and Drug Abuse Patient Records regulations: The Federal rules restrict any use of the information to criminally investigate or prosecute any alcohol or drug abuse patient.[facility] HospitalIn the event this information is protected by the Federal Confidentiality of Alcohol and Drug Abuse Patient Records regulations: The Federal rules restrict any use of the information to criminally investigate or prosecute any alcohol or drug abuse patient.[facility] HospitalIn the event this information is protected by the Federal Confidentiality of Alcohol and Drug Abuse Patient Records regulations: The Federal rules restrict any use of the information to criminally investigate or prosecute any alcohol or drug abuse patient.[facility] HospitalIn the event this information is protected by the Federal Confidentiality of Alcohol and Drug Abuse Patient Records regulations: The Federal rules restrict any use of the information to criminally investigate or prosecute any alcohol or drug abuse patient.[facility] HospitalIn the event this information is protected by the Federal Confidentiality of Alcohol and Drug Abuse Patient Records regulations: The Federal rules restrict any use of the information to criminally investigate or prosecute any alcohol or drug abuse patient.[facility] HospitalIn the event this information is protected by the Federal Confidentiality of Alcohol and Drug Abuse Patient Records regulations: The Federal rules restrict any use of the information to criminally investigate or prosecute any alcohol or drug abuse patient.[facility] HospitalIn the event this information is protected by the Federal Confidentiality of Alcohol and Drug Abuse Patient Records regulations: The Federal rules restrict any use of the information to criminally investigate or prosecute any alcohol or drug abuse patient.[facility] HospitalIn the event this information is protected by the Federal Confidentiality of Alcohol and Drug Abuse Patient Records regulations: The Federal rules restrict any use of the information to criminally investigate or prosecute any alcohol or drug abuse patient.[facility] HospitalIn the event this information is protected by the Federal Confidentiality of Alcohol and Drug Abuse Patient Records regulations: The Federal rules restrict any use of the information to criminally investigate or prosecute any alcohol or drug abuse patient.[facility] HospitalIn the event this information is protected by the Federal Confidentiality of Alcohol and Drug Abuse Patient Records regulations: The Federal rules restrict any use of the information to criminally investigate or prosecute any alcohol or drug abuse patient.[facility] HospitalIn the event this information is protected by the Federal Confidentiality of Alcohol and Drug Abuse Patient Records regulations: The Federal rules restrict any use of the information to criminally investigate or prosecute any alcohol or drug abuse patient.[facility] HospitalIn the event this information is protected by the Federal Confidentiality of Alcohol and Drug Abuse Patient Records regulations: The Federal rules restrict any use of the information to criminally investigate or prosecute any alcohol or drug abuse patient.[facility] HospitalIn the event this information is protected by the Federal Confidentiality of Alcohol and Drug Abuse Patient Records regulations: The Federal rules restrict any use of the information to criminally investigate or prosecute any alcohol or drug abuse patient.[facility] HospitalIn the event this information is protected by the Federal Confidentiality of Alcohol and Drug Abuse Patient Records regulations: The Federal rules restrict any use of the information to criminally investigate or prosecute any alcohol or drug abuse patient.[facility] HospitalIn the event this information is protected by the Federal Confidentiality of Alcohol and Drug Abuse Patient Records regulations: The Federal rules restrict any use of the information to criminally investigate or prosecute any alcohol or drug abuse patient.[facility] HospitalIn the event this information is protected by the Federal Confidentiality of Alcohol and Drug Abuse Patient Records regulations: The Federal rules restrict any use of the information to criminally investigate or prosecute any alcohol or drug abuse patient.[facility] HospitalIn the event this information is protected by the Federal Confidentiality of Alcohol and Drug Abuse Patient Records regulations: The Federal rules restrict any use of the information to criminally investigate or prosecute any alcohol or drug abuse patient.[facility] HospitalIn the event this information is protected by the Federal Confidentiality of Alcohol and Drug Abuse Patient Records regulations: The Federal rules restrict any use of the information to criminally investigate or prosecute any alcohol or drug abuse patient.[facility] HospitalIn the event this information is protected by the Federal Confidentiality of Alcohol and Drug Abuse Patient Records regulations: The Federal rules restrict any use of the information to criminally investigate or prosecute any alcohol or drug abuse patient.[facility] HospitalIn the event this information is protected by the Federal Confidentiality of Alcohol and Drug Abuse Patient Records regulations: The Federal rules restrict any use of the information to criminally investigate or prosecute any alcohol or drug abuse patient.[facility] HospitalIn the event this information is protected by the Federal Confidentiality of Alcohol and Drug Abuse Patient Records regulations: The Federal rules restrict any use of the information to criminally investigate or prosecute any alcohol or drug abuse patient.[facility] HospitalIn the event this information is protected by the Federal Confidentiality of Alcohol and Drug Abuse Patient Records regulations: The Federal rules restrict any use of the information to criminally investigate or prosecute any alcohol or drug abuse patient.[facility] HospitalIn the event this information is protected by the Federal Confidentiality of Alcohol and Drug Abuse Patient Records regulations: The Federal rules restrict any use of the information to criminally investigate or prosecute any alcohol or drug abuse patient.[facility] HospitalIn the event this information is protected by the Federal Confidentiality of Alcohol and Drug Abuse Patient Records regulations: The Federal rules restrict any use of the information to criminally investigate or prosecute any alcohol or drug abuse patient.[facility] HospitalIn the event this information is protected by the Federal Confidentiality of Alcohol and Drug Abuse Patient Records regulations: The Federal rules restrict any use of the information to criminally investigate or prosecute any alcohol or drug abuse patient.[facility] HospitalIn the event this information is protected by the Federal Confidentiality of Alcohol and Drug Abuse Patient Records regulations: The Federal rules restrict any use of the information to criminally investigate or prosecute any alcohol or drug abuse patient.[facility] HospitalIn the event this information is protected by the Federal Confidentiality of Alcohol and Drug Abuse Patient Records regulations: The Federal rules restrict any use of the information to criminally investigate or prosecute any alcohol or drug abuse patient.[facility] HospitalIn the event this information is protected by the Federal Confidentiality of Alcohol and Drug Abuse Patient Records regulations: The Federal rules restrict any use of the information to criminally investigate or prosecute any alcohol or drug abuse patient.[facility] HospitalIn the event this information is protected by the Federal Confidentiality of Alcohol and Drug Abuse Patient Records regulations: The Federal rules restrict any use of the information to criminally investigate or prosecute any alcohol or drug abuse patient.[facility] HospitalIn the event this information is protected by the Federal Confidentiality of Alcohol and Drug Abuse Patient Records regulations: The Federal rules restrict any use of the information to criminally investigate or prosecute any alcohol or drug abuse patient.[facility] HospitalIn the event this information is protected by the Federal Confidentiality of Alcohol and Drug Abuse Patient Records regulations: The Federal rules restrict any use of the information to criminally investigate or prosecute any alcohol or drug abuse patient.[facility] HospitalIn the event this information is protected by the Federal Confidentiality of Alcohol and Drug Abuse Patient Records regulations: The Federal rules restrict any use of the information to criminally investigate or prosecute any alcohol or drug abuse patient.[facility] HospitalIn the event this information is protected by the Federal Confidentiality of Alcohol and Drug Abuse Patient Records regulations: The Federal rules restrict any use of the information to criminally investigate or prosecute any alcohol or drug abuse patient.[facility] HospitalIn the event this information is protected by the Federal Confidentiality of Alcohol and Drug Abuse Patient Records regulations: The Federal rules restrict any use of the information to criminally investigate or prosecute any alcohol or drug abuse patient.[facility] HospitalIn the event this information is protected by the Federal Confidentiality of Alcohol and Drug Abuse Patient Records regulations: The Federal rules restrict any use of the information to criminally investigate or prosecute any alcohol or drug abuse patient.[facility] HospitalIn the event this information is protected by the Federal Confidentiality of Alcohol and Drug Abuse Patient Records regulations: The Federal rules restrict any use of the information to criminally investigate or prosecute any alcohol or drug abuse patient.[facility] HospitalIn the event this information is protected by the Federal Confidentiality of Alcohol and Drug Abuse Patient Records regulations: The Federal rules restrict any use of the information to criminally investigate or prosecute any alcohol or drug abuse patient.[facility] HospitalIn the event this information is protected by the Federal Confidentiality of Alcohol and Drug Abuse Patient Records regulations: The Federal rules restrict any use of the information to criminally investigate or prosecute any alcohol or drug abuse patient.[facility] HospitalIn the event this information is protected by the Federal Confidentiality of Alcohol and Drug Abuse Patient Records regulations: The Federal rules restrict any use of the information to criminally investigate or prosecute any alcohol or drug abuse patient.[facility] HospitalIn the event this information is protected by the Federal Confidentiality of Alcohol and Drug Abuse Patient Records regulations: The Federal rules restrict any use of the information to criminally investigate or prosecute any alcohol or drug abuse patient.[facility] HospitalIn the event this information is protected by the Federal Confidentiality of Alcohol and Drug Abuse Patient Records regulations: The Federal rules restrict any use of the information to criminally investigate or prosecute any alcohol or drug abuse patient.[facility] HospitalIn the event this information is protected by the Federal Confidentiality of Alcohol and Drug Abuse Patient Records regulations: The Federal rules restrict any use of the information to criminally investigate or prosecute any alcohol or drug abuse patient.[facility] HospitalIn the event this information is protected by the Federal Confidentiality of Alcohol and Drug Abuse Patient Records regulations: The Federal rules restrict any use of the information to criminally investigate or prosecute any alcohol or drug abuse patient.[facility] HospitalIn the event this information is protected by the Federal Confidentiality of Alcohol and Drug Abuse Patient Records regulations: The Federal rules restrict any use of the information to criminally investigate or prosecute any alcohol or drug abuse patient.[facility] HospitalIn the event this information is protected by the Federal Confidentiality of Alcohol and Drug Abuse Patient Records regulations: The Federal rules restrict any use of the information to criminally investigate or prosecute any alcohol or drug abuse patient.[facility] HospitalIn the event this information is protected by the Federal Confidentiality of Alcohol and Drug Abuse Patient Records regulations: The Federal rules restrict any use of the information to criminally investigate or prosecute any alcohol or drug abuse patient.[facility] HospitalIn the event this information is protected by the Federal Confidentiality of Alcohol and Drug Abuse Patient Records regulations: The Federal rules restrict any use of the information to criminally investigate or prosecute any alcohol or drug abuse patient.[facility] HospitalIn the event this information is protected by the Federal Confidentiality of Alcohol and Drug Abuse Patient Records regulations: The Federal rules restrict any use of the information to criminally investigate or prosecute any alcohol or drug abuse patient.[facility] HospitalIn the event this information is protected by the Federal Confidentiality of Alcohol and Drug Abuse Patient Records regulations: The Federal rules restrict any use of the information to criminally investigate or prosecute any alcohol or drug abuse patient.[facility] HospitalIn the event this information is protected by the Federal Confidentiality of Alcohol and Drug Abuse Patient Records regulations: The Federal rules restrict any use of the information to criminally investigate or prosecute any alcohol or drug abuse patient.[facility] HospitalIn the event this information is protected by the Federal Confidentiality of Alcohol and Drug Abuse Patient Records regulations: The Federal rules restrict any use of the information to criminally investigate or prosecute any alcohol or drug abuse patient.[facility] HospitalIn the event this information is protected by the Federal Confidentiality of Alcohol and Drug Abuse Patient Records regulations: The Federal rules restrict any use of the information to criminally investigate or prosecute any alcohol or drug abuse patient.[facility] HospitalIn the event this information is protected by the Federal Confidentiality of Alcohol and Drug Abuse Patient Records regulations: The Federal rules restrict any use of the information to criminally investigate or prosecute any alcohol or drug abuse patient.[facility] HospitalIn the event this information is protected by the Federal Confidentiality of Alcohol and Drug Abuse Patient Records regulations: The Federal rules restrict any use of the information to criminally investigate or prosecute any alcohol or drug abuse patient.[facility] HospitalIn the event this information is protected by the Federal Confidentiality of Alcohol and Drug Abuse Patient Records regulations: The Federal rules restrict any use of the information to criminally investigate or prosecute any alcohol or drug abuse patient.[facility] HospitalIn the event this information is protected by the Federal Confidentiality of Alcohol and Drug Abuse Patient Records regulations: The Federal rules restrict any use of the information to criminally investigate or prosecute any alcohol or drug abuse patient.[facility] HospitalIn the event this information is protected by the Federal Confidentiality of Alcohol and Drug Abuse Patient Records regulations: The Federal rules restrict any use of the information to criminally investigate or prosecute any alcohol or drug abuse patient.[facility] HospitalIn the event this information is protected by the Federal Confidentiality of Alcohol and Drug Abuse Patient Records regulations: The Federal rules restrict any use of the information to criminally investigate or prosecute any alcohol or drug abuse patient.[facility] HospitalIn the event this information is protected by the Federal Confidentiality of Alcohol and Drug Abuse Patient Records regulations: The Federal rules restrict any use of the information to criminally investigate or prosecute any alcohol or drug abuse patient.[facility] HospitalIn the event this information is protected by the Federal Confidentiality of Alcohol and Drug Abuse Patient Records regulations: The Federal rules restrict any use of the information to criminally investigate or prosecute any alcohol or drug abuse patient.[facility] HospitalIn the event this information is protected by the Federal Confidentiality of Alcohol and Drug Abuse Patient Records regulations: The Federal rules restrict any use of the information to criminally investigate or prosecute any alcohol or drug abuse patient.[facility] HospitalIn the event this information is protected by the Federal Confidentiality of Alcohol and Drug Abuse Patient Records regulations: The Federal rules restrict any use of the information to criminally investigate or prosecute any alcohol or drug abuse patient.[facility] HospitalIn the event this information is protected by the Federal Confidentiality of Alcohol and Drug Abuse Patient Records regulations: The Federal rules restrict any use of the information to criminally investigate or prosecute any alcohol or drug abuse patient.[facility] HospitalIn the event this information is protected by the Federal Confidentiality of Alcohol and Drug Abuse Patient Records regulations: The Federal rules restrict any use of the information to criminally investigate or prosecute any alcohol or drug abuse patient.[facility] HospitalIn the event this information is protected by the Federal Confidentiality of Alcohol and Drug Abuse Patient Records regulations: The Federal rules restrict any use of the information to criminally investigate or prosecute any alcohol or drug abuse patient.[facility] HospitalIn the event this information is protected by the Federal Confidentiality of Alcohol and Drug Abuse Patient Records regulations: The Federal rules restrict any use of the information to criminally investigate or prosecute any alcohol or drug abuse patient.[facility] Reason for Visit (unrecogniz ed section and content) Reason Comments PT Discharge Specialty Diagnoses / Procedures Referred By Contac t Referred To Contact PHYSICAL THERAPY Diagnoses Unilateral primary osteoarthritis, left knee Presence of left artificial knee joint Aftercare following joint replacement surgery Procedures FOLLOW-UP/REASSESSMENT Scott Valero PA-C [address] [place] [address] [address] [place] [address] Referral ID Status Reason Start Date Expiration Date V isits Requested Visits Authorized [id number] Authorized 10/16/2023 08/25/2024 99 99 Reason Comments Physical Therapy Reason Comments PT Progress Note Specialty Diagnoses / Procedures Referred By Contac t Referred To Contact [facility] Diagnoses Lumbar postlaminectomy syndrome Radiculopathy, lumbar region DDD (degenerative disc disease), lumbar Intervertebral disc disorder with radiculopathy of lumbar region Myalgia History of arthroplasty Other chronic pain Implantable intrathecal infusion pump present Radiculitis, thoracic High risk medication use Chronic pain syndrome Procedures CONSULT TO PHYSICAL THERAPY PHYSICAL THERAPY EVALUATION HIGH COMPLEX 45 MINS Fatoumata Lyn, DO [address] [place] [address] [facility] [place] [address] [place] [id number] Referral ID Status Reason Start Date Expiration Date Visits Requested Visits Authorized [id number] Authorized PCP Requested Referral Auto-Generate d Referral 10/29/2022 10/29/2023 99 99 Reason Comments Back Pain Reason Onset Date Comments Refill Request 02/22/2022 Reason Comments Pain Reason Onset Date Comments Refill Request 05/02/2022 Reason Onset Date Comments Refill Request 06/11/2022 Reason Onset Date Comments Refill Request 06/13/2022 Reason Comments Spirometry Specialty Diagnoses / Procedures Referred By Contac t Referred To [facility] Diagnoses Dyspnea on exertion Procedures SPIROMETRY - BASELINE AND POST DILATOR BRNCDILAT RSPSE SPMTRY PRE&POST-BRNCDILAT ADMN [facility], Provider NON-STAFF PROVIDER [facility] [place] [address] [place] [address] Referral ID Status Reason Start Date Expiration Date V isits Requested Visits Authorized [id number] Closed Auto-Generate d Referral 06/04/2022 07/04/2023 1 1 Specialty Diagnoses / Procedures Referred By Contac t Referred To Contact [facility] Diagnoses Dyspnea on exertion Procedures MAXIMAL VOLUNTARY VENTILATION MAX BREATHING CAPACITY MAXIMAL VOLUNTARY VENTJ [facility], Provider NON-STAFF PROVIDER [facility] [place] [address] [place] [address] Referral ID Status Reason Start Date Expiration Date V isits Requested Visits Authorized [id number] Closed Auto-Generate d Referral 06/04/2022 07/04/2023 1 1 Specialty Diagnoses / Procedures Referred By Contac t Referred To Contact [facility] Diagnoses Dyspnea on exertion Procedures LUNG DIFFUSION CAPACITY (DLCO) DIFFUSING CAPACITY [facility], Provider NON-STAFF PROVIDER Respiratory [address] [address] Referral ID Status Reason Start Date Expiration Date V isits Requested Visits Authorized [id number] Closed Auto-Generate d Referral 06/04/2022 07/04/2023 1 1 Specialty Diagnoses / Procedures Referred By Contac t Referred To Contact [facility] Diagnoses Dyspnea on exertion Procedures LUNG VOLUMES [facility], Provider NON-STAFF PROVIDER Respiratory [address] [address] Referral ID Status Reason Start Date Expiration Date V isits Requested Visits Authorized [id number] Closed Auto-Generate d Referral 06/04/2022 07/04/2023 1 1 Reason Comments Schedule Pump trial Reason Onset Date Comments Refill Request 08/06/2022 Reason Comments Orders Reason Comments Results Patient Update Reason Comments Appointment Reason Comments Post Op Reason Comments Patient Update Reason Comments Back Pain Reason Onset Date Comments Refill Request 10/30/2022 Reason Comments pacc hx call Reason Onset Date Comments Refill Request 11/20/2022 Reason Comments Pt still having pain- wants change Reason Onset Date Comments Refill Request 01/23/2023 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 Reason Onset Date Comments Refill Request 03/26/2023 Reason Comments Back Pain Hip Pain Reason Comments Case Needed Reason Comments Future Appointment Reason Onset Date Comments Refill Request 09/26/2023 Reason Comments PT Eval Reason Comments Patient Update S/p TKR Reason Onset Date Comments Refill Request 11/19/2023 Reason Onset Date Comments Refill Request 11/25/2023 Reason Comments Pain Pump Reason Comments IT pump referral Reason Comments pain pump referral Reason Onset Date Comments Refill Request 01/22/2024 Reason Comments New Patient Reason Comments Radiology NM Reason Comments Medication Problem Spoke with Emperatriz; she is going to give a thought to having a heart cath. I gave her the phone number here at my desk and she will call next week. Janet Wiley LPN Reason Comments Results Has agreed to procee d with cath. Please place order in chart. Janet Wiley LPN Reason Comments Patient Update Patient notified of heart cath 09/18/2024 @ 8:00AM. Janet Wiley LPN Care Teams (unrecognized sec tion and content) Neonatal Nurse Practitioner Relationship Specialty Start Date End Date Luda Ann, DO [address] [place] [address] PCP - General Internal Medicine 02/09/22 Neonatal Nurse Practitioner Relationship Specialty Start Date End Date Luda Ann DO [address] [place] [address] PCP - General Internal Medicine 02/09/22 Neonatal Nurse Practitioner Relationship Specialty Start Date End Date Luda Ann DO [address] [place] [address] PCP - General Internal Medicine 02/09/22 Neonatal Nurse Practitioner Relationship Specialty Start Date End Date Luda Ann DO [address] [place] [address] PCP - General Internal Medicine 02/09/22 Neonatal Nurse Practitioner Relationship Specialty Start Date End Date Luda Ann DO [address] [place] [address] PCP - General Internal Medicine 02/09/22 Neonatal Nurse Practitioner Relationship Specialty Start Date End Date Luda Ann DO [address] [place] [address] PCP - General Internal Medicine 02/09/22 Neonatal Nurse Practitioner Relationship Specialty Start Date End Date Luda Ann DO [address] [place] [address] PCP - General Internal Medicine 02/09/22 Neonatal Nurse Practitioner Relationship Specialty Start Date End Date Luda Ann DO [address] [place] [address] PCP - General Internal Medicine 02/09/22 Neonatal Nurse Practitioner Relationship Specialty Start Date End Date Luda Ann, DO [address] [place] [address] PCP - General Internal Medicine 02/09/22 Neonatal Nurse Practitioner Relationship Specialty Start Date End Date Luda Ann, DO [address] [place] [address] PCP - General Internal Medicine 02/09/22 Neonatal Nurse Practitioner Relationship Specialty Start Date End Date Luda Ann, DO [address] [place] [address] PCP - General Internal Medicine 02/09/22 Neonatal Nurse Practitioner Relationship Specialty Start Date End Date Luda Ann, DO [address] [place] [address] PCP - General Internal Medicine 02/09/22 Neonatal Nurse Practitioner Relationship Specialty Start Date End Date Luda Ann, DO [address] [place] [address] PCP - General Internal Medicine 02/09/22 Neonatal Nurse Practitioner Relationship Specialty Start Date End Date Luda Ann, DO [address] [place] [address] PCP - General Internal Medicine 02/09/22 Neonatal Nurse Practitioner Relationship Specialty Start Date End Date Luda Ann DO [address] [place] [address] PCP - General Internal Medicine 02/09/22 Neonatal Nurse Practitioner Relationship Specialty Start Date End Date Luda Ann DO [address] [place] [address] PCP - General Internal Medicine 02/09/22 Neonatal Nurse Practitioner Relationship Specialty Start Date End Date Luda Ann DO [address] [place] [address] PCP - General Internal Medicine 02/09/22 Neonatal Nurse Practitioner Relationship Specialty Start Date End Date Luda Ann DO [address] [place] [address] PCP - General Internal Medicine 02/09/22 Neonatal Nurse Practitioner Relationship Specialty Start Date End Date Luda Ann DO [address] [place] [address] PCP - General Internal Medicine 02/09/22 Neonatal Nurse Practitioner Relationship Specialty Start Date End Date Luda Ann DO [address] [place] [address] PCP - General Internal Medicine 02/09/22 Neonatal Nurse Practitioner Relationship Specialty Start Date End Date Luda Ann DO [address] [place] [address] PCP - General Internal Medicine 02/09/22 Neonatal Nurse Practitioner Relationship Specialty Start Date End Date Luda Ann DO [address] [place] [address] PCP - General Internal Medicine 02/09/22 Neonatal Nurse Practitioner Relationship Specialty Start Date End Date Luda Ann DO [address] [place] [address] PCP - General Internal Medicine 02/09/22 Neonatal Nurse Practitioner Relationship Specialty Start Date End Date Luda Ann DO [address] [place] [address] PCP - General Internal Medicine 02/09/22 Neonatal Nurse Practitioner Relationship Specialty Start Date End Date Luda Ann DO [address] [place] [address] PCP - General Internal Medicine 02/09/22 Neonatal Nurse Practitioner Relationship Specialty Start Date End Date Luda Ann DO [address] [place] [address] PCP - General Internal Medicine 02/09/22 Neonatal Nurse Practitioner Relationship Specialty Start Date End Date Luda Ann DO [address] [place] [address] PCP - General Internal Medicine 02/09/22 Neonatal Nurse Practitioner Relationship Specialty Start Date End Date Luda Ann DO [address] [place] [address] PCP - General Internal Medicine 02/09/22 Neonatal Nurse Practitioner Relationship Specialty Start Date End Date Luda Ann DO [address] [place] [address] PCP - General Internal Medicine 02/09/22 Neonatal Nurse Practitioner Relationship Specialty Start Date End Date Luda Ann DO [address] [place] [address] PCP - General Internal Medicine 02/09/22 Neonatal Nurse Practitioner Relationship Specialty Start Date End Date Luda Ann DO [address] [place] [address] PCP - General Internal Medicine 02/09/22 Neonatal Nurse Practitioner Relationship Specialty Start Date End Date Luda Ann DO [address] [place] [address] PCP - General Internal Medicine 02/09/22 Neonatal Nurse Practitioner Relationship Specialty Start Date End Date Luda Ann DO [address] [place] [address] PCP - General Internal Medicine 02/09/22 Neonatal Nurse Practitioner Relationship Specialty Start Date End Date Luda Ann DO [address] [place] [address] PCP - General Internal Medicine 02/09/22 Neonatal Nurse Practitioner Relationship Specialty Start Date End Date Luda Ann DO [address] [place] [address] PCP - General Internal Medicine 02/09/22 Neonatal Nurse Practitioner Relationship Specialty Start Date End Date Luda Ann DO [address] [place] [address] PCP - General Internal Medicine 02/09/22 Neonatal Nurse Practitioner Relationship Specialty Start Date End Date Luda Ann DO [address] [place] [address] PCP - General Internal Medicine 02/09/22 Neonatal Nurse Practitioner Relationship Specialty Start Date End Date Luda Ann DO [address] [place] [address] PCP - General Internal Medicine 02/09/22 Neonatal Nurse Practitioner Relationship Specialty Start Date End Date Luda Ann DO [address] [place] [address] PCP - General Internal Medicine 02/09/22 Neonatal Nurse Practitioner Relationship Specialty Start Date End Date Luda Ann DO [address] [place] [address] PCP - General Internal Medicine 02/09/22 Neonatal Nurse Practitioner Relationship Specialty Start Date End Date Luda Ann DO [address] [place] [address] PCP - General Internal Medicine 02/09/22 Neonatal Nurse Practitioner Relationship Specialty Start Date End Date Luda Ann DO [address] [place] [address] PCP - General Internal Medicine 02/09/22 Neonatal Nurse Practitioner Relationship Specialty Start Date End Date Luda Ann DO [address] [place] [address] PCP - General Internal Medicine 02/09/22 Neonatal Nurse Practitioner Relationship Specialty Start Date End Date Luda Ann DO [address] [place] [address] PCP - General Internal Medicine 02/09/22 Neonatal Nurse Practitioner Relationship Specialty Start Date End Date Luda Ann DO [address] [place] [address] PCP - General Internal Medicine 02/09/22 Neonatal Nurse Practitioner Relationship Specialty Start Date End Date Luda Ann DO [address] [place] [address] PCP - General Internal Medicine 02/09/22 Neonatal Nurse Practitioner Relationship Specialty Start Date End Date Luda Ann DO [address] [place] [address] PCP - General Internal Medicine 02/09/22 Neonatal Nurse Practitioner Relationship Specialty Start Date End Date Luda Ann DO [address] [place] [address] PCP - General Internal Medicine 02/09/22 Neonatal Nurse Practitioner Relationship Specialty Start Date End Date Luda Ann DO [address] [place] [address] PCP - General Internal Medicine 02/09/22 Neonatal Nurse Practitioner Relationship Specialty Start Date End Date Luda Ann DO [address] [place] [address] PCP - General Internal Medicine 02/09/22 Neonatal Nurse Practitioner Relationship Specialty Start Date End Date Luda Ann DO [address] [place] [address] PCP - General Internal Medicine 02/09/22 Neonatal Nurse Practitioner Relationship Specialty Start Date End Date Luda Ann DO [address] [place] [address] PCP - General Internal Medicine 02/09/22 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 Jose Juan Springer MD Attending Provider Active Start: February 25, 2025 Team Status: Inactive Member Role/Relationship Status Dates Dr. Rodriguez Coleman MD Attending Provider Active S tart: February 25, 2025 End: February 25, 2025 Team Status: Inactive Member Role/Relationship Status Dates Dr. Jose Juan Springer MD Attending Provider Active Start: February 25, 2025 End: February 25, 2025 Goals (unrecognized section and content) Goals may be documented in a n alternate section FOR RECORDS PERTAINING TO PATIENTS WHO ARE OR HAVE BEEN ENROLLED IN A CHEMICAL DEPENDENCY/SUBSTANCEABUSE PROGRAM, SOME INFORMATION MAY BE OMITTED. This clinical summary was aggregated from multiple sources. Caution should be exercised in using it in the provision of clinical care. This summary normalizes information from multiple sources, and as a consequence, information in this document may materially change the coding, format and clinical context of patient data. In addition, data may be omitted in some cases. CLINICAL DECISIONS SHOULD BE BASED ON THE PRIMARY CLINICAL RECORDS. [employer] provides no warranty or guarantee of the accuracy or completeness of information in this document.
--- OUTSIDE RECORDS SUMMARY | 2025-03-30 18:41 | XMS RPT_ITS | CCD ---
Author Organization [facility] CliniSywv Care Team Providers Care Mirror Machine Feeder Name Role Phone JORI DEWITT Attending Unavailable [...] MARISSA GALAN, DR MARIN Primary Care Unavailable MARISAS GALAN, DR MARIN Primary Care Unavailable JUDY [...] Unavailable Gian ELENA, Dr. Manzano Attending Provider Dr. Rodriguez Coleman MD Attending Provider [phone] Rodriguez Coleman Attending Unavailable Jose Juan Springer [...] on above: Take 1 capsule by mo [facility] every 4 hours as needed [...] Comment on above: Take 1 capsule by [facility] twice daily for 5 days. cholecalciferol 0.125 [...] TIMES DAILY Take 1 capsule by mo [facility] as directed for 20 days. [...] 5 MG/ML SIMPLE CONTINUOUS RATE 0.03 MG/HOUR BreadMED II MEDTRONIC INTRATHECAL PUMP WITH PERSONAL COMPOUNDER FLAVORINGS 20 mL 0 09/25/2022 10/10/2022 Discontinued Start: 09-25-2022 morphine (PF) 5 mg/mL in NaCl 0.9% 20 mL Indications: Lumbar postlaminectomy syndrome PF MORPHINE 5 MG/ML SIMPLE CONTINUOUS RATE 0.03 MG/HOUR SYNCHROMED II MEDTRONIC INTRATHECAL PUMP WITH PERSONAL COMPOUNDER FLAVORINGS 20 mL 0 09/25/2022 Active Comment on above: PF MORPHINE 5 MG/ML SIMPLE CONTINUOUS RATE 0.03 MG/HOUR SYNCHROMED II MEDTRONIC INTRATHECAL PUMP WITH PERSONAL COMPOUNDER FLAVORINGS PF MORPHINE 5 MG/ML SIMPLE CONTINUOUS RATE 0.03 MG/HOUR Activate PTM 0.05 mg every 4 hours (max 6 doses per day) Patient to establish care with [facility] nursing services PF MORPHINE 5 [...] THE AFFECTED AREA DIRECTED 05/13/2024 Active nystatin 413955 unt/ml / triamcinolone acetonide 1 mg/ml topical [...] 12:00am Start: 06-07-2023 take 1 capsule by [facility] once daily before mealtime omeprazole (PRILOSEC) 40 mg capsule take 1 capsule by mouth every day before a meal 06/07/2023 Active Start: 09-14-2021 take 1 capsule by [facility] once daily in the morning omeprazole (PRILOSEC) 20 mg capsule Take 20 mg by mouth every morning. 0 02/01/2022 Active Comment on above: Take 20 mg by mouth every morning. take 1 capsule by [facility] every day before a meal simvastatin 20 mg oral tablet (20 sources) HMG-CoA Reductase Inhibitor Start: 02-25-2025 take 1 tablet by mouth once daily Simvastatin 20 mg tablet Active 20 mg PO daily February 25, 2025 12:00am Start: 09-14-2021 take 1 tablet by [facility] once daily at bedtime simvastatin (ZOCOR) 20 [...] Comment on above: Take 1 tablet by [facility] three times a day as needed. 24 hr tolterodine tartrate 4 mg extended release oral capsule (20 sources) Cholinergic Muscarinic Antagonist Start: take 1 capsule by mouth once daily Tolterodine 4 mg capsule,extended release 24hr Active 4 mg PO daily February 25, 2025 12:00am Start: 09-14-2021 take 1 capsule by [facility] once daily tolterodine 4 mg oral capsule, extended release TAKE ONE CAPSULE BY MOUTH EVERY DAY Start Date: 09/14/21 Status: Ordered Start: 11-21-2015 End: 09-19-2022 tolterodine (DETROL) 1 mg ta blet Detrol 1 mg tablet 0 11/21/2015 09/19/2022 Discontinued (Discontinued by another Health Care Provider) take 1 capsule by [facility] every twenty-four hours tolterodine ER (DETROL LA) 4 mg 24 hr capsule Take 1 capsule by mouth q 24 HR. 0 Active Comment on above: Detrol 1 mg tablet Take 1 capsule by [facility] q 24 HR. Take 4 mg by [...] Phosphate Binder, Calcium Start: 11-21-2015 End: 03-13-2022 Kk-H7-fze-veed-dyq-tzsg-jeannie jeanne (CALTRATE 600-D PLUS MINERALS) 600 mg calcium- 800 unit-40 mg chew CALTRATE 600+D CHEW 0 11/21/2015 03/13/2022 Discontinued (Discontinued by Patient) Start: 11-21-2015 Is-A0-akh-zinc -qgz-cgpt-ypgqj (CALTRATE 600-D PLUS MINERALS) 600 mg calcium- 800 unit-40 mg chew CALTRATE 600+D CHEW 0 11/21/2015 Active Comment on above: CALTRATE 600+D CHEW capsaicin 0.06715 mg/mg / lidocaine hydrochloride 0.005 mg/mg / [...] on above: TAKE 1 CAPSULE BY MO [facility] EVERY 12 HOURS WITH FOOD Take 100 [...] coronary artery; Translations: [Atherosclerotic heart disease of kashia coronary artery without angina pectoris] Onset: 08-20-2024 [...] sources) Taking high risk medication; Translations: [Other predatory animal exterminator (current) drug therapy] Onset: 10-29-2022 Episodic Other aftercare (20 sources) Patient encounter status; Translations: [halfway (current) use of opiate analgesic] Onset: 02-06-2016 10-02-2022 Episodic Other aftercare (10 sources) Long-term current use of drug therapy; Translations: [Other custodial (current) drug therapy] Onset: 02-15-2017 07-31-2023 Episodic [...] 4 Viewson L/S Spine Min 4 Views [facility] [address] [place], [place] [address] L/S Spine Min 4 Views MR#: [id number] Acct: [id number] Name: EMPERATRIZ GHOSH Rep #: [id number] : 1950 F 74 From: Scott Garcia MD PCP: Status: DEP AMB Study: L/S Spine Min 4 Views Date of Exam: 02/25/25 Exam# [id number] Ordering Dr: Aretha Barton PROCEDURE: L/S SPINE [...] Lumbar spine scoliosis and degeneration. Reading Location: [place] [address] CC: ZACKARY Whittington Zigzag Machine Operator: Signed Normal [facility] Orthopedic Visit Reporton Orthopedic Visit Report [facility] [address] [place] [address] [address] [place] [address] OFFICE VISIT Date of Service: 02/25/25 MR#: [id number] Acct: [id number] Name: EMPERATRIZ GHOSH Rep #: [id number] : 1950 Provider: Dr. Jose Juan Springer MD Age/Sex: 74/F Location: [facility] Status: Signed Intake Vital Signs 02/25/25 14:46 [...] L1-L3 in [address] Gusman at [facility] L3-L4 in [address] Jiménez at [facility] [place]. She has received injections with Dr. Chase, [...] cord stimulator trial with Dr. Lyn at [facility]. He states the trial did not produce [...] it w (more content not included)... Normal [facility] Thoracic Spine 2 Viewson Thoracic Spine 2 Views [facility] [address] [place] [address] Thoracic Spine 2 Views MR#: [id number] Acct: [id number] Name: EMPERATRIZ GHOSH Rep #: [id number] : 1950 F 74 From: Scott Garcia MD PCP: Status: DEP AMB Study: Thoracic Spine 2 Views Date of Exam: 02/25/25 Exam# [id number] Ordering Dr: Jose Juan Springer MD PROCEDURE: THORACIC SPINE 2 VIEWS 02/25/2025 REASON FOR EXAM: SCS PLACEMENT PLANNING TECHNIQUE: THORACIC SPINE 2 VIEWS COMPARISON: No FINDINGS: Moderate scoliosis. Normal heart size. Large hiatal hernia. Multilevel disc space narrowing, endplate sclerosis, osteophyte formation. Underlying osteoporosis. No acute bone or soft tissue pathology. RAD/Thoracic Spine 2 Views IMPRESSION: Thoracic spine scoliosis and degeneration. Reading Location: [place] [address] CC: Dr. Jose Juan Springer MD Zigzag Machine Operator: Signed [facility] BRIEF OP NOTon 09-21-2024 BRIEF OP NOT HNO ID: [id number] Author: MAYNOR FERNANDEZ MD Service: Cardiovascular Medicine [...] of hypertension and hyperlipidemia Maynor Fernandez MD [facility] CARD CATH DIAGNOSTICon 09-21 CARD CATH DIAGNOSTIC Site Id: [facility] #: DEFAULT Study Date: 09/21/2024 Start Time: [...] On: 10/23/2024 at 3:51:08 PM Final CC [facility] : [id number] [id number] See Link below for Image Normal [facility] CBC panel Auto (Bld)on 09-21 Erythrocyte distribution width (RBC) [Ratio] 11.6 % Normal 11.5-15.0 [facility] Comment on above: Order Comment: Speci men Type: BLOOD SPECIMENOrdering Facility: [facility] Address: [address] [place] [address] Performed By: #### 5 8410-2 ####[facility] LABORATORYCLIA [id number] [place] [address] [place] Hematocrit (Bld) [Volume fraction] 44.4 % Normal 36.0-46.0 [facility] Comment on above: Order Comment: Speci men Type: BLOOD SPECIMENOrdering Facility: [facility] Address: [address] [place], [place] [address] Performed By: #### 5 8410-2 ####[facility] LABORATORYCLIA [id number] [place] [address] [place] Hemoglobin (Bld) [Mass/Vol] 14.9 g/dL Normal 11.5-15.5 [facility] Comment on above: Order Comment: Speci men Type: BLOOD SPECIMENOrdering Facility: [facility] Address: [address] [place] [address] Performed By: #### 5 8410-2 ####[facility] LABORATORYCLIA [id number] [place] [address] [place] MCH (RBC) [Entitic mass] 31.8 pg Normal 26.0-34.0 [facility] Comment on above: Order Comment: Speci men Type: BLOOD SPECIMENOrdering Facility: [facility] Address: [address] [place] [address] Performed By: #### 5 8410-2 ####[facility] LABORATORYCLIA [id number] [place] [address] [place] MCHC (RBC) [Mass/Vol] 33.6 g/dL Normal 30.5-36.0 [facility] Comment on above: Order Comment: Speci men Type: BLOOD SPECIMENOrdering Facility: [facility] Address: [address] [place] [address] Performed By: #### 5 8410-2 ####[facility] LABORATORYCLIA [id number] [place] [address] [place] MCV (RBC) [Entitic vol] 94.7 fL Normal 80.0-100.0 [facility] Comment on above: Order Comment: Speci men Type: BLOOD SPECIMENOrdering Facility: [facility] Address: [address] [place] [address] Performed By: #### 5 8410-2 ####[facility] LABORATORYCLIA [id number] [place] [address] [place] Nucleated RBC (Bld) [#/Vol] 10*3/uL Normal <0.01 [facility] Comment on above: Order Comment: Speci men Type: BLOOD SPECIMENOrdering Facility: [facility] Address: [address] [place] [address] Performed By: #### 5 8410-2 ####[facility] LABORATORYCLIA [id number] [place] [address] [place] Platelet mean volume (Bld) [Entitic vol] 9.2 fL Normal 9.0-12.7 [facility] Comment on above: Order Comment: Speci men Type: BLOOD SPECIMENOrdering Facility: [facility] Address: [address] [place] [address] Performed By: #### 5 8410-2 ####[facility] LABORATORYCLIA [id number] [place] [address] [place] Platelets (Bld) [#/Vol] 190 10*3/uL Normal 150-400 [facility] Comment on above: Order Comment: Speci men Type: BLOOD SPECIMENOrdering Facility: [facility] Address: [address] [place] [address] Performed By: #### 5 8410-2 ####[facility] LABORATORYCLIA [id number] [place] [address] [place] RBC (Bld) [#/Vol] 4.69 10*6/uL Normal 3.90-5.20 [facility] Comment on above: Order Comment: Speci men Type: BLOOD SPECIMENOrdering Facility: [facility] Address: [address] [place] [address] Performed By: #### 5 8410-2 ####[facility] LABORATORYCLIA [id number] [place] [id number] [place] WBC (Bld) [#/Vol] 7.22 10*3/uL Normal 3.70-11.00 [facility] Comment on above: Order Comment: Speci men Type: BLOOD SPECIMENOrdering Facility: [facility] Address: [address] [place] [address] Performed By: #### 5 8410-2 ####[facility] LABORATORYCLIA [id number] [place] [id number] [facility] Comprehensive metabolic 2000 panelon 09-21-2024 Albumin [Mass/Vol] 3.5 g/dL Normal 3.2-5.0 [facility] Comment on above: Order Comment: Speci men Type: BLOOD SPECIMENOrdering Facility: [facility] Address: [address] [place] [address] Performed By: #### 2 4323-8, 96341-6, , 3015-3 ####[facility] LABORATORYCLIA [id number] [place] [id number] [place] ALP [Catalytic activity/Vol] 126 U/L High 45-117 [facility] Comment on above: Order Comment: Speci men Type: BLOOD SPECIMENOrdering Facility: [facility] Address: [address] [place] [address] Performed By: #### 2 4323-8, 60360-8, , 3 ####[facility] LABORATORYCLIA [id number] [place] [id number] [facility] ALT [Catalytic activity/Vol] 22 U/L Normal 13-61 [facility] Comment on above: Order Comment: Speci men Type: BLOOD SPECIMENOrdering Facility: [facility] Address: [address] [place] [address] Result Comment: Resu lts may be falsely depressed after the administration of Sulfasalazine and/or Sulfapyridine. Performed By: #### 2 4323-8, 99867-3, , 3015-3 ####[facility] LABORATORYCLIA [id number] [place] [id number] [place] Anion gap [Moles/Vol] 8 mmol/L Normal 5-16 [facility] Comment on above: Order Comment: Speci men Type: BLOOD SPECIMENOrdering Facility: [facility] Address: [address] [place] [address] Performed By: #### 2 4323-8, 11301-3, , 3 ####[facility] LABORATORYCLIA [id number] [place] [address] [place] AST [Catalytic activity/Vol] 26 U/L Normal 8-34 [facility] Comment on above: Order Comment: Speci men Type: BLOOD SPECIMENOrdering Facility: [facility] Address: [address] [place] [address] Result Comment: Resu lts may be falsely depressed after the administration of Sulfasalazine and/or Sulfapyridine. Performed By: #### 2 4323-8, 33709-7, , 3015-10 ####[facility] LABORATORYCLIA [id number] [place] [address] [place] Bilirubin [Mass/Vol] 0.7 mg/dL Normal 0.2-1.0 [facility] Comment on above: Order Comment: Speci men Type: BLOOD SPECIMENOrdering Facility: [facility] Address: [address] [place] [address] Performed By: #### 2 4323-8, 77933-6, , 3015-10 ####[facility] LABORATORYCLIA [id number] [place] [id number] [place] Calcium [Mass/Vol] 9.9 mg/dL Normal 8.5-10.5 [facility] Comment on above: Order Comment: Speci men Type: BLOOD SPECIMENOrdering Facility: [facility] Address: [address] [place] [address] Performed By: #### 2 4323-8, 93535-9, , 3015-10 ####[facility] LABORATORYCLIA [id number] [place] [address] [place] Chloride [Moles/Vol] 104 mmol/L Normal 98-107 [facility] Comment on above: Order Comment: Speci men Type: BLOOD SPECIMENOrdering Facility: [facility] Address: [address] [place] [id number] Performed By: #### 2 4323-8, 52480-9, 83597-3, 3015-3 ####[facility] LABORATORYCLIA [id number] [place] [address] [place] CO2 [Moles/Vol] 30 mmol/L Normal 21-32 [facility] Comment on above: Order Comment: Speci men Type: BLOOD SPECIMENOrdering Facility: [facility] Address: [address] [place], [place] [address] Performed By: #### 2 4323-8, 32126-6, , 3 ####[facility] LABORATORYCLIA [id number] [place] [address] [place] Creatinine [Mass/Vol] 0.64 mg/dL Normal 0.51-0.95 [facility] Comment on above: Order Comment: Speci men Type: BLOOD SPECIMENOrdering Facility: [facility] Address: [address] [place] [address] Result Comment: Anyi ents receiving either N-Acetylcysteine (NAC) or Metamizole prior to venipuncture, may have falsely depressed results. Performed By: #### 2 4323-8, 63906-5, 30953-4, 3 ####[facility] LABORATORYCLIA [id number] [address] [facility] Creatinine and Glomerular filtration rate.predicted panel (S/P/Bld) 92 mL/min/1.73m??? Normal >=60 [facility] Comment on above: Order Comment: Speci men Type: BLOOD SPECIMENOrdering Facility: [facility] Address: [address] [place] [id number] Result Comment: Giselle mated Glomerular Filtration Rate [...] actual GFR. Performed By: #### 2 4323-8, 61986-8, 78087-2, 3015-3 ####[facility] LABORATORYCLIA [id number] [place] [address] [place] Glucose [Mass/Vol] 95 mg/dL Normal 70-100 [facility] Comment on above: Order Comment: Pelon wilson Type: BLOOD SPECIMENOrdering Facility: [facility] Address: [address] [place] [id number] Result Comment: The [place] Diabetes [employer] (ADA) provides guidance for cutoff [...] Standards of Medical Care in Diabetes 2016, [place] [employer]. Diabetes Care. 2016.39(Suppl 1). Results may be falsely elevated after the administration of Sulfapyridine. Results may be falsely depressed after the administration of Sulfasalazine. Performed By: #### 2 4323-8, 64691-3, , 3 ####[facility] LABORATORYCLIA [id number] [place] [address] [place] Potassium [Moles/Vol] 3.5 mmol/L Normal 3.5-5.1 [facility] Comment on above: Order Comment: Pelon wilson Type: BLOOD SPECIMENOrdering Facility: [facility] Address: [address] [place] [address] Performed By: #### 2 4323-8, 90665-9, 75389-3, 3015-3 ####[facility] LABORATORYCLIA [id number] [place] [address] [place] Protein [Mass/Vol] 6.8 g/dL Normal 6.0-8.5 [facility] Comment on above: Order Comment: Speci men Type: BLOOD SPECIMENOrdering Facility: [facility] Address: [address] [place] [address] Performed By: #### 2 4323-8, 54634-5, 23190-8, 6-3 ####[facility] LABORATORYCLIA [id number] [place] [id number] [place] [facility] Sodium [Moles/Vol] 142 mmol/L Normal 136-145 [facility] Comment on above: Order Comment: Speci men Type: BLOOD SPECIMENOrdering Facility: [facility] Address: [address] [place] [address] Performed By: #### 2 4323-8, 68210-7, 34894-9, 6-3 ####[facility]ORATORYCLIA [id number] [place] [address] [place] Urea nitrogen [Mass/Vol] 19 mg/dL Normal 7-26 [facility] Comment on above: Order Comment: Speci men Type: BLOOD SPECIMENOrdering Facility: [facility] Address: [address] [place] [address] Performed By: #### 2 4323-8, 59794-3, 56397-3, 6-3 ####[facility] LABORATORYCLIA [id number] [place] [id number] [facility] ECG COMPLETEon 09-21-2024 ECG COMPLETE Ventricular Rate : 9 8 BPM Atrial Rate : 98 BPM P-R Interval : 168 ms QRS Duration : 72 ms Q-T Interval : 380 ms QTC Calculation(Bazett) : 485 ms Calculated P [place] : 45 degrees Calculated R [place] : 9 degrees Calculated T [place] : 24 degrees Normal sinus rhythm QTcB >= 480 msec Abnormal ECG When compared with ECG of 20-Aug-2024 10:30, No interval changes Confirmed by HAYDEN HOLT MD ([id number]) on 09/21/2024 5:00:56 PM NAME : EMPERATRIZ GHOSH PID : [id number] : 1950 Gender : Female Race : ORD : [id number] Procedure Date : Sep 21 2024 07:57:27 Edit Date : Sep 21 2024 17:00:59 Diagnosis: Normal sinus rhythm QTcB >= 480 msec Abnormal ECG When compared with ECG of 20-Aug-2024 10:30, No interval changes Confirmed by HAYDEN HOLT MD ([id number]) on 09/21/2024 5:00:56 PM Test Reason : stat Location : 23 : SURG MRCTHPL Overread By : HAYDEN HOLT MD Edited By : HAYDEN HOLT MD Referred By : , Acquired by : BETH KEYS [facility] HISTORY PHYSICALon HISTORY PHYSICAL HNO ID: [id number] Author: GILLIAN RAMIREZ APRN.DOOR FRAME BUILDER Service: Clinical Cardiology Author Type: Nurse Practitioner Type: H&P Filed: 09/21/2024 10:58 Note Text: CARDIOLOGY HISTORY AND PHYSICAL EXAMINATION DATE of SERVICE: September 21, 2024 TIME of SERVICE: 8:00 AM ATTENDING MANAGER RESEARCH DEVELOPMENT: Dr. 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 Essential hypertension controlled with meds moniotred by [...] Lyn at [facility] now sees Dr Chase in [employer] - has implanted pain pump to right hip Sleep apnea mild sleep apnea- no cpap used seen by Pulmonary unsure of name Wears glasses PAST SURGICAL HISTORY Procedure Laterality Date BLADDER SURGERY HX 1994 REPAIR AND LIFT CARPAL TUNNEL RIGHT WRIST Bilateral 02/2023 COLONOSCOPY SCREENING 09/16/2024 Dr Leon EGD W/O [facility] SPEC VARICIES INJ Dr Leon Aug 2024 HYSTERECTOMY HX 1983 partial INTRATHECAL PUMP PLACEMENT 09/28/[address] Lyn now managed by Dr Chase in [employer] ORTHOPEDICS SURGERY HX Bilateral left hip replacement [...] mg) tabT (more content not included)... Normal [facility] Lipid 1996 panelon 5 Cholesterol [Mass/Vol] 146 mg/dL Normal 0-199 [facility] Comment on above: Order Comment: Speci men Type: BLOOD SPECIMENOrdering Facility: [facility] Address: [address] [place] [address] Result Comment: <200 mg/dL, Desirable 200-239 mg/dL, Borderline high >239 mg/dL, High Performed By: #### 2 4323-8, 58277-0, 08387-0, 3016-3 ####[facility] LABORATORYCLIA [id number] [place] [address] [place] Cholesterol in HDL [Mass/Vol] 53 mg/dL Normal >40 [facility] Comment on above: Order Comment: Speci men Type: BLOOD SPECIMENOrdering Facility: [facility] Address: [address] [place], [place] [address] Result Comment: 40-5 9 mg/dL, Acceptable >59 mg/dL, High: Negative risk factor for coronary heart disease <40 mg/dL, Low: Positive risk factor for coronary heart disease Performed By: #### 2 4323-8, 78289-6, , 3015-10 ####[facility] LABORATORYCLIA [id number] [place] [address] [place] Cholesterol in LDL [Mass/Vol] 66 mg/dL Normal 0-129 [facility] Comment on above: Order Comment: Speci men Type: BLOOD SPECIMENOrdering Facility: [facility] Address: [address] [place] [address] Result Comment: <100 mg/dL, Optimal 100-129 mg/dL, Near optimal/above optimal 130-159 mg/dL, Borderline high 160-189 mg/dL, High >189 mg/dL, Very high Secondary prevention optimal LDL Cholesterol levels are recommended to be < 70 mg/dL Performed By: #### 2 4323-8, 47990-7, , 3015-10 ####[facility] LABORATORYCLIA [id number] [place] [address] [place] Cholesterol in LDL/Cholesterol in HDL [Mass ratio] 1.25 {ratio} Normal <2.54 [facility] Comment on above: Order Comment: Speci men Type: BLOOD SPECIMENOrdering Facility: [facility] Address: [address] [place] [address] Result Comment: Jaylen salmon: 1. National Cholesterol Education Program ATP III Guideline At-A-Glance Quick Desk Reference: National Heart, Lung, and Blood [place]. National Institutes of Health. 2001: NIH Publication No. 01-3305. 2. An International Atherosclerosis Society position paper: global recommendations for the management of dyslipidemia: executive summary, Atherosclerosis. 2014: 232(2):410-413. Performed By: #### 2 4323-8, 11113-1, , 3015-10 ####[facility] LABORATORYCLIA [id number] [place] [address] [place] Cholesterol in VLDL [Mass/Vol] 27 mg/dL Normal <30 [facility] Comment on above: Order Comment: Speci men Type: BLOOD SPECIMENOrdering Facility: [facility] Address: [address] [place] [address] Performed By: #### 2 4323-8, 82588-0, , 3015-10 ####[facility] LABORATORYCLIA [id number] [place] [id number] [facility] [place] Cholesterol non HDL [Mass/Vol] 93 mg/dL Normal <130 [facility] Comment on above: Order Comment: Speci men Type: BLOOD SPECIMENOrdering Facility: [facility] Address: [facility] [place] [address] Result Comment: <130 mg/dL, Optimal 130-159 mg/dL, Near optimal/above optimal 160-189 mg/dL, Borderline high 190-219 mg/dL, High >219 mg/dL, Very high Secondary prevention optimal non HDL Cholesterol levels are recommended to be <100 mg/dL Performed By: #### 2 4323-8, 49767-6, , 3015-10 ####[facility] LABORATORYCLIA [id number] [place] [id number] [facility] [place] Cholesterol.total/C holesterol in HDL [Mass ratio] 2.75 {ratio} Normal <5.10 [facility] Comment on above: Order Comment: Speci men Type: BLOOD SPECIMENOrdering Facility: [facility] Address: [address] [place] [address] Performed By: #### 2 4323-8, 61520-7, , 3015-10 ####[facility] LABORATORYCLIA [id number] [place] [address] [place] FASTING TIME [address] [facility] Comment on above: Order Comment: Speci men Type: BLOOD SPECIMENOrdering Facility: [facility] Address: [address] [place] [address] Performed By: #### 2 4323-8, 42492-2, , 3015-10 ####[facility] LABORATORYCLIA [id number] [place] [id number] [place] Triglyceride [Mass/Vol] 134 mg/dL Normal 30-149 [facility] Comment on above: Order Comment: Pelon wilson Type: BLOOD SPECIMENOrdering Facility: [facility] Address: [address] [place] [address] Result Comment: <150 mg/dL, Normal 150-199 mg/dL, Borderline high 200-499 mg/dL, High >499 mg/dL, Very high Patients receiving either N-Acetylcysteine (NAC) or Metamizole prior to venipuncture, may have falsely depressed results. Performed By: #### 2 4323-8, 30739-4, 91010-7, 3015-3 ####[facility] LABORATORYCLIA [id number] [place] [id number] [place] Magnesium SerPl-mCncon 09-21 Magnesium [Mass/Vol] 1.7 mg/dL Normal 1.6-2.6 [facility] Comment on above: Order Comment: Pelon wilson Type: BLOOD SPECIMENOrdering Facility: [facility] Address: [address] [place] [address] Performed By: #### 2 4323-8, 20082-8, , 3 ####[facility] LABORATORYCLIA [id number] [place] [id number] [place] PT panel Coag (PPP)on 2024 INR Coag (PPP) [Relative time] 1.0 {INR} Normal 0.9-1.3 [facility] Comment on above: Order Comment: Pelon wilson Type: BLOOD SPECIMENOrdering Facility: [facility] Address: [address] [place] [address] Result Comment: Lolita min K Antagonist (VKA) Therapeutic Range: INR 2 to 3 (Target INR of 2.5) Note: For patients treated with VKA drugs, such as warfarin, the [employer] 2012 Guideline recommends [...] Chest 2012, 141:7S-47S Zahraa RA, et al. [facility] 2017, 70: 252-289 Performed By: #### 3 4528-0 ####[facility] LABORATORYCLIA [id number] [place] [address] [place] [facility] PT Coag (PPP) [Time] 10.7 s Normal 9.7-13.0 [facility] Comment on above: Order Comment: Speci men Type: BLOOD SPECIMENOrdering Facility: [facility] Address: [address] [place] [address] Performed By: #### 3 4528-0 ####[facility] LABORATORYCLIA [id number] [address] [place] TSH SerPl-aCncon 09-21-2024 TSH Qn 8.550 m[IU]/L High 0.358-3.740 [facility] Comment on above: Order Comment: Speci men Type: BLOOD SPECIMENOrdering Facility: [facility] Address: [address] [place] [address] Result Comment: 3rd generation ultra sensitive TSH. Performed By: #### 2 4323-8, 44406-7, 53784-2, 3016-3 ####[facility] LABORATORYCLIA [id number] [place] [id number] [facility] [place] NURSING PROGon 09-18-2024 NURSING PROG HNO ID: [id number] Author: MERLYN HOLM RN Service: Nursing Author [...] directed. Bring copy of Living Will/Power of Tractor Expert. Do not smoke or chew. If you [...] the Surgery Center. UPON ARRIVAL: Access to [facility] (the [facility]) is located on [address] Machine [employer] parking is available for your convenience from [...] time are permitted in your preprocedure room. [facility] NURSING PROGon 09-17-2024 NURSING PROG HNO ID: [id number] Author: QUENTIN CRISTINA RN Service: Nursing Author Type: Registered Nurse Type: Nursing Progress Note Filed: 09/17/2024 16:38 Note Text: Patient has a [employer] intrathecal Pain pump implanted in her right hip by Dr Lyn on 09/28/2022. It is currently being managed by Dr Chase in [place] [employer] for pain management. I left a message with Dr Fernandez's nurse Shandra and licensing officer Kaylene to see if Dr Fernandez need device management form for her upcoming heart cath procedure on 09/21/24. 09/17/24 3547 I also spoke with Dr Chase's office and they informed me that the device does not need touch or change for this type of procedure per Dr Chase. I will inform Dr Fernandez's office of this. [facility] Zoey 09-02-2024 IVETTE Telephone (POP) EMPERATRIZ GHOSH ([id number]) 1950 F Date Time Provider Department 09/02/24 [...] [Z98.890 (ICD-10-CM)] [*10/29/ (more content not included)... [facility] Zoey 08-31-2024 SHANA Telephone (POP) EMPERATRIZ GHOSH ([id number]) 1950 F Date Time Provider Department 08/31/24 MAHAMED CARDONA During your visit today, we recorded the following information about you: Janet Wiley LPN 08/31/2024 1:24 PM Signed ----- [...] place order in chart. Janet Wiley LPN Prescriptions as of 08/31/2024 - [...] Lumbar spondylosis [M47. (more content not included)... [facility] CNOVon 08-20-2024 [facility] Office Visit (POP ) EMPERATRIZ GHOSH ([id number]) 1950 F Date Time Provider Department 08/20/24 10:30 AM [facility] SALINAS LORD During your visit today, we recorded the following information about you: Referring Provider: MAHAMED CARDONA [[id number]] Allergies As of Date: 08/20/2024 (No Known [...] [M54.50, G89.29] 0 (more content not included)... [facility] Zoey 08-20-2024 SHANA Telephone (POP) EMPERATRIZ GHOSH ([id number]) 1950 F Date Time Provider Department 08/20/24 [...] 02/04/2017 Implantab (more content not included)... Normal [facility] NM CARDIAC PERF STRESS/PHARM on 08-20-2024 NM [...] later. See administered radiotracer and doses below. [facility] Date of service: 08/20/2024 9:45:26 [...] * * * ------ Stress ECG Report: [facility] Date of service: 08/20/2024 9:45:26 AM Ordering physician: MAHAMED CARDONA financial services specialist: Radha Ramírez RN Interpreting physician: Mahamed [...] 100/69 mmHg. The double product achieved was [address]. Medications: Last Used LISINOPRIL and HCTZ [id number] PEPCID morphine GABAPENTIN BABY ASPIRIN vit d3 [...] 0 bpm Rate (more content not included)... [facility] 08-14-2024 SHANAN Telephone (POP) EMPERATRIZ GHOSH ([id number]) 1950 F Date Time Provider Department 08/14/24 [...] G89.29] 02/04/2017 (more content not included)... Normal [facility] CNOVon 06-25-2024 [facility] Office Visit (POP ) TOMMYEMPERATRIZ ([id number]) 1950 F Date Time Provider Department 06/25/24 8:30 AM MAHAMED CARDONA During your visit today, we recorded the following information about you: Pulse Blood pressure Weight Height 95/minute 117/80 100.7 kg 1.524 m Mahamed Cardona MD 06/25/2024 9:18 AM Signed [facility] [place] OUTPATIENT VISIT DATE June 25, 2024 OUTPATIENT VISIT TYPE New Cardiology Consult PRIMARY CARE PHYSICIAN: Luda Ann [address] [place] [address] HISTORY OF PRESENT ILLNESS: Emperatriz Ghosh is [...] Constitutional: Appearance: (more content not included)... Normal [facility] XR SPINE THORACIC MINIMUM 4 VIEWSon 06-19-2024 [...] [place] 03-12-2024 IVETTE Telephone (SIAB) EMPERATRIZ GHOSH ([id number]) 1950 F Date Time Provider Department 03/12/24 MAHAMED CARDONA During your visit today, we recorded the following information about you: Hannah Robles 03/12/2024 3:08 PM Signed Received a referral from [facility] the office of Dr. Ann. Patient [...] disorder with radiculopathy*02/16/20 (more content not included)... [facility] EMPERATRIZ GHOSH ([id number]) 1950 F Date Time Provider Department 02/19/24 JACI NIXON [facility] During your visit today, we recorded the following information about you: Jaci Nixon APRN.CNP 02/19/2024 7:09 AM Signed Please call the pt and get her an appt with Maynor gray [facility]. Thank you Jaci Nixon APRN.CNP 02/19/2024 10:08 AM Signed Noted and thank you. 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 [facility] CNPN Telephone ([facility]) EMPERATRIZ GHOSH ([id number]) 1950 F Date Time Provider Department 02/19/24 JACI NIXON [facility] During your visit today, we recorded the following information about you: Kaylene Driver MA 02/19/2024 10:03 AM Signed I called patient to get her an appointment scheduled with Maynor Robles at [place], patient stated she is no longer with us that she is seeing Dr Lopez in [place] [employer]. Kaylene Driver MA February 19, 2024 10:02 [...] High risk medi (more content not included)... [facility] CNPN Telephone ([facility]) EMPERATRIZ GHOSH ([id number]) 1950 F Date Time Provider Department 02/19/24 [...] [M25.662]10/02/2023 12/23/2023 E (more content not included)... [facility] XR Spine Lumbar and Sacrum G E 6 Viewson 02-19-2024 IMPRESSION: Postoperative and degenerative changes with intact hardware. Zigzag Machine Operator: DARREN Transcribe Date/Time: Feb 19 2024 6:30A Dictated by : ALESSIO TRIMBLE MD This examination was interpreted and the report reviewed and electronically signed by: ALESSIO TRIMBLE MD on Feb 19 2024 6:31AM [facility] * * *Final Report* * * [...] facet hypertrophy. Bilateral hip arthroplasties are noted. [facility] Provider, keny Hancock - 02/19/2024 [...] Postoperative and degenerative changes with intact hardware. Zigzag Machine Operator: DARREN Transcribe Date/Time: Feb 19 2024 6:30A Dictated by : ALESSIO TRIMBLE MD This examination was interpreted and the report reviewed and electronically signed by: ALESSIO TRIMBLE MD on Feb 19 2024 6:31AM EST [facility] XR Spine Lumbar and Sacrum G E 6 ViewsOrdered By: Ccf Provider on 02-19-2024 [facility] XR LUMBAR 6V AP/LAT/OBLS/FLE X/EXon 02-13-2024 XR [...] Postoperative and degenerative changes with intact hardware. Zigzag Machine Operator: [facility] Transcribe Date/Time: Feb 19 2024 6:30A Dictated by : ALESSIO TRIMBLE MD This examination was interpreted and the report reviewed and electronically signed by: ALESSIO TRIMBLE MD on Feb 19 2024 6:31AM EST [id number] [facility] XR Spine Lumbar and Sacrum G E 6 Viewson 02-13-2024 Radiology Study observation (narrative) [facility] CT THORAX W/O CONTRASTon CT THORAX W/O [...] 02/03/2024 2:58:29 PM Ordering Provider: EVERETT MCCULLOUGH [facility] ([place]) Zoey 12-31-2023 IVETTE Telephone (ADONAY) EMPERATRIZ GHOSH ([id number]) 1950 F Date Time Provider Department 12/31/23 [...] 2:53 PM Signed Pt returned call to [facility]: Pt states that has not heard from Dr. Lopez. Pt given phone # for Dr. Lopez; pt states she will reach out to to his office to see if he is going to see her. She will let [facility] know response as well as to contact [facility] with any other updates, questons, or [...] lumbar region [M96.1] (more content not included)... [facility] CNTHERAPYon 12-23-2023 CNTHERAPY OT/PT/Speech Visit ([facility]) EMPERATRIZ GHOSH ([id number]) 1950 F Date Time Provider Department 12/23/23 9:30 AM LAURA SHAFFER [facility] Date Time Provider Department Center 12/23/2023 9:30 AM [id number], MICHEL*[facility] M Reason for Visit: [...] in error Letter Text Letter Text Normal [facility] CNOVon 12-18-2023 CNOV Office Visit (PAMMJK ) EMPERATRIZ GHOSH ([id number]) 1950 F Date Time Provider Department 12/18/23 10:00 AM MAYNOR ROBLES PAMMJK During your visit today, we recorded the following information about you: Temperature Pulse Respiration Blood pressure 97.2 degrees 104/minute 18/minute 92/59 Maynor Robles PA-C 12/18/2023 10:40 AM Signed This note was created using [employer]. Subjective Emperatriz Ghosh is a 73 year [...] M54.16 5. Radi (more content not included)... [facility] CNTHERAPYon 12-18-2023 CNTHERAPY OT/PT/Speech Visit ([facility]) EMPERATRIZ GHOSH ([id number]) 1950 F Date Time Provider Department 12/18/23 1:30 PM DWAIN KOLB [facility] Date Time Provider Department Center 12/18/2023 1:30 PM [id number], SHEILA*[facility] M Reason for Visit: [...] FROM PCP BLOOD NOT CLOT NORMAL PERSON [facility] CNCOon 12-17-2023 CNCO Letter Text [facility] CNPNon 12-16-2023 CNPN Telephone (ADONAY) TOMMYEMPERATRIZ ([id number]) 1950 F Date Time Provider Department 12/16/23 [...] 12/17/2023 1:17 PM Signed Referral sent through [employer] (by isePankur) to Dr Chase. Maura Jarvis RN December 17, 2023 1:17 PM Allergies As of Date: 12/16/2023 (No Known Allergies) Date Reviewed: 09/16/2023 Reviewed by: Boubacar Andrews MD - Fully Assessed Reason for Visit: IT pump referral [Other] Primary Visit Diagnosis:Implantable intrathecal infusion pump present [Z96.89] Other Visit Diagnoses:Other chronic pain [G89.29] Diffuse myofascial pain syndrome [M79.18] Order(s):CONSULT TO NON-[facility] FACILITY [[id number]] Order #: [id number] Prescriptions as of 12/17/2023 - morphine (PF) [...] Chronic pain syn (more content not included)... [facility] CNTHERAPYon 12-11-2023 CNTHERAPY OT/PT/Speech Visit ([facility]) EMPERATRIZ GHOSH ([id number]) 1950 F Date Time Provider Department 12/11/23 10:45 AM DWAIN KOLB [facility] Date Time Provider Department Center 12/11/2023 10:45 AM [id number], [facility] Reason for Visit: [...] PCP BLOOD NOT CLOT NORMAL PERSON [facility] (PAIERIN) SEKOUEMPERATRIZ ZAMUDIO ([id number]) 1950 F Date Time Provider Department 12/09/23 [...] [M47.814] 12/19/2017 Deg (more content not included)... [facility] CNTHERAPYon 12-09-2023 CNTHERAPY OT/PT/Speech Visit ([facility]) EMPERATRIZ GHOSH ([id number]) 1950 F Date Time Provider Department 12/09/23 10:45 AM DWAIN KOLB [facility] Date Time Provider Department Center 12/09/2023 10:45 AM [id number], SHEILA*[facility] M Reason for Visit: [...] PCP BLOOD NOT CLOT NORMAL PERSON Normal [facility] CNTHERAPYon 12-04-2023 CNTHERAPY OT/PT/Speech Visit ([facility]) EMPERATRIZ GHOSH ([id number]) 1950 F Date Time Provider Department 12/04/23 10:45 AM DWAIN KOLB [facility] Date Time Provider Department Center 12/04/2023 10:45 AM [id number], SHEILA*[facility] M Reason for Visit: [...] FROM PCP BLOOD NOT CLOT NORMAL PERSON [facility] CNTHERAPYon 12-02-2023 CNTHERAPY OT/PT/Speech Visit ([facility]) EMPERATRIZ GHOSH ([id number]) 1950 F Date Time Provider Department 12/02/23 10:45 AM DWAIN KOLB [facility] Date Time Provider Department Center 12/02/2023 10:45 AM [id number], SHEILA*[facility] M Reason for Visit: [...] PCP BLOOD NOT CLOT NORMAL PERSON Normal [facility] CNTHERAPYon 11-27-2023 CNTHERAPY OT/PT/Speech Visit ([facility]) EMPERATRIZ GHOSH ([id number]) 1950 F Date Time Provider Department 11/27/23 11:00 AM DEEPTHIHARIKALAURA JETER [facility] Date Time Provider Department Center 11/27/2023 11:00 AM [id number], MICHEL*[facility] M Reason for Visit: [...] BLOOD NOT CLOT NORMAL PERSON Letter Text [facility] CNTHERAPYon 11-25-2023 CNTHERAPY OT/PT/Speech Visit ([facility]) EMPERATRIZ GHOSH ([id number]) 1950 F Date Time Provider Department 11/25/23 1:30 PM DWAIN KOLB [facility] Date Time Provider Department Center 11/25/2023 1:30 PM [id number], SHEILA*[facility] M Reason for Visit: [...] PCP BLOOD NOT CLOT NORMAL PERSON Normal [facility] CNTHERAPYon 11-21-2023 CNTHERAPY OT/PT/Speech Visit ([facility]) EMPERATRIZ GHOSH ([id number]) 1950 F Date Time Provider Department 11/21/23 11:00 AM MAYA GOEL Erwin [facility] Date Time Provider Department Center 11/21/2023 11:00 AM [id number], AMBER M [facility] Reason for Visit: Physical Therapy [503] Primary [...] FROM PCP BLOOD NOT CLOT NORMAL PERSON [facility] CNTHERAPYon 11-19-2023 CNTHERAPY OT/PT/Speech Visit ([facility]) TOMMYANGELEMPERATRIZ Katarzyna ([id number]) 1950 F Date Time Provider Department 11/19/23 3:00 PM DWAIN KOLB [facility] Date Time Provider Department [place] 11/19/2023 3:00 PM [id number], SHEILA*[facility] M Reason for Visit: [...] FROM PCP BLOOD NOT CLOT NORMAL PERSON [facility] CNTHERAPYon 11-15-2023 CNTHERAPY OT/PT/Speech Visit ([facility]) TOMMYEMPERATRIZ ([id number]) 1950 F Date Time Provider Department 11/15/23 11:00 AM DWAIN KOLB [facility] Date Time Provider Department Center 11/15/2023 11:00 AM [id number], SHEILA*[facility] Reason for Visit: Physical Therapy [503] Primary [...] FROM PCP BLOOD NOT CLOT NORMAL PERSON [facility] CNTHERAPYon 11-13-2023 CNTHERAPY OT/PT/Speech Visit ([facility]) SEKOUEMPERATRIZ ZAMUDIO ([id number]) 1950 F Date Time Provider Department 11/13/23 2:15 PM LAURA SHAFFER [facility] Date Time Provider Department [place] 11/13/2023 2:15 PM [id number], MICHEL*[facility] M Reason for Visit: [...] FROM PCP BLOOD NOT CLOT NORMAL PERSON [facility] CNTHERAPYon 11-11-2023 CNTHERAPY OT/PT/Speech Visit ([facility]) EMPERATRIZ GHOSH ([id number]) 1950 F Date Time Provider Department 11/11/23 11:00 AM LAURA SHAFFER [facility] Date Time Provider Department [place] 11/11/2023 11:00 AM [id number], MICHEL*[facility] M Reason for Visit: [...] BLOOD NOT CLOT NORMAL PERSON Letter Text [facility] CNTHERAPYon 11-06-2023 CNTHERAPY OT/PT/Speech Visit ([facility]) EMPERATRIZ GHOSH ([id number]) 1950 F Date Time Provider Department 11/06/23 11:00 AM LAURA SHAFFER [facility] Date Time Provider Department Center 11/06/2023 11:00 AM [id number], MICHEL*[facility] M Reason for Visit: Physical Therapy [...] FROM PCP BLOOD NOT CLOT NORMAL PERSON [facility] CNTHERAPYon 11-04-2023 [facility] EMPERATRIZ GHOSH ([id number]) 1950 F Date Time Provider Department 11/04/23 11:00 AM LAURA SHAFFER [facility] Date Time Provider Department Center 11/04/2023 11:00 AM [id number], MICHEL*[facility] M Reason for Visit: [...] FROM PCP BLOOD NOT CLOT NORMAL PERSON [facility] CNTHERAPYon 11-01-2023 CNTHERAPY OT/PT/Speech Visit ([facility]) EMPERATRIZ GHOSH ([id number]) 1950 F Date Time Provider Department 11/01/23 11:00 AM DWAIN KOLB [facility] Date Time Provider Department Center 11/01/2023 11:00 AM [id number], SHEILA*[facility] M Reason for Visit: Physical Therapy [...] FROM PCP BLOOD NOT CLOT NORMAL PERSON [facility] CNTHERAPYon 10-30-2023 CNTHERAPY OT/PT/Speech Visit ([facility]) EMPERATRIZ GHOSH ([id number]) 1950 F Date Time Provider Department 10/30/23 11:00 AM LAURA SHAFFER [facility] Date Time Provider Department Center 10/30/2023 11:00 AM [id number], MICHEL*[facility] M Reason for Visit: [...] FROM PCP BLOOD NOT CLOT NORMAL PERSON [facility] Zoey 10-29-2023 SHANAN Telephone (ADONAY) EMPERATRIZ GHOSH ([id number]) 1950 F Date Time Provider Department 10/29/23 [...] [G89.18, M54.9] 02/15/2022 (more content not included)... [facility] CNTHERAPYon 10-28-2023 CNTHERAPY OT/PT/Speech Visit ([facility]) EMPERATRIZ GHOSH ([id number]) 1950 F Date Time Provider Department 10/28/23 10:45 AM DWAIN KOLB [facility] Date Time Provider Department Center 10/28/2023 10:45 AM [id number], SHEILA*[facility] M Reason for Visit: Physical Therapy [...] PCP BLOOD NOT CLOT NORMAL PERSON [facility] .Auto Diffon 09-11-2023 Basophil, Absolute 0.0 10 3/mcL Normal 0.0-0.3 [facility] ([place]) Comment on above: Performed By: #### G FR, ADIFF, BMP, PRO, ANEU, CBC, A1C, MORPH #### [address] [address] Basophils/100 WBC (Bld) 0.3 % Normal 0.0-2.5 [facility] ([place]) Comment on above: Performed By: #### G FR, ADIFF, BMP, PRO, ANEU, CBC, A1C, MORPH #### [address] [address] Eosinophil, Absolute 0.2 10 3/mcL Normal 0.0-0.7 [facility] ([place]) Comment on above: Performed By: #### G FR, ADIFF, BMP, PRO, ANEU, CBC, A1C, MORPH #### [address] [address] Eosinophils/100 WBC (Bld) 1.9 % Normal 0.0-6.0 [facility] ([place]) Comment on above: Performed By: #### G FR, ADIFF, BMP, PRO, ANEU, CBC, A1C, MORPH #### [address] [address] Lymphocyte, Absolute 2.0 10 3/mcL Normal 0.9-4.3 [facility] ([place]) Comment on above: Performed By: #### G FR, ADIFF, BMP, PRO, ANEU, CBC, A1C, MORPH #### [address] [address] Lymphocytes/100 WBC (Bld) 23.4 % Normal 20.0-40.0 [facility] ([place]) Comment on above: Performed By: #### G FR, ADIFF, BMP, PRO, ANEU, CBC, A1C, MORPH #### [address] [address] Monocyte, Absolute 0.8 10 3/mcL Normal 0.1-1.4 [facility] ([place]) Comment on above: Performed By: #### G FR, ADIFF, BMP, PRO, ANEU, CBC, A1C, MORPH #### [address] [address] Monocytes/100 WBC (Bld) 8.8 % Normal 2.0-13.0 [facility] ([place]) Comment on above: Performed By: #### G FR, ADIFF, BMP, PRO, ANEU, CBC, A1C, MORPH #### [address] [address] Neutrophils/100 WBC (Bld) 65.6 % Normal 50.0-75.0 [facility] ([place]) Comment on above: Performed By: #### G FR, ADIFF, BMP, PRO, ANEU, CBC, A1C, MORPH #### [address] [address] .GFRon 09-11-2023 GFR >60 Normal [facility] ([place]) Comment on above: Result Comment: GFR Population [...] BMP, PRO, ANEU, CBC, A1C, MORPH #### [address] [address] GFR Non- >60 Normal [facility] ([place]) Comment on above: Result Comment: GFR Population [...] BMP, PRO, ANEU, CBC, A1C, MORPH #### [address] [address] .Morphon 09-11-2023 Anisocytosis Ql (Bld) 1+ Normal [facility] ([place]) Comment on above: Performed By: #### G FR, ADIFF, BMP, PRO, ANEU, CBC, A1C, MORPH #### [address] [address] Ovalocytes 1+ Normal [facility] ([place] Comment on above: Performed By: #### G FR, ADIFF, BMP, PRO, ANEU, CBC, A1C, MORPH #### [address] [address] Platelet Estimate Normal Normal [facility] ([place] Comment on above: Performed By: #### G FR, ADIFF, BMP, PRO, ANEU, CBC, A1C, MORPH #### [address] [address] Poik 1+ Normal [facility] ([place] Comment on above: Performed By: #### G FR, ADIFF, BMP, PRO, ANEU, CBC, A1C, MORPH #### [address] [address] .NEUABSon 09-11-2023 Neutrophil, Absolute 5.6 10 3/mcL Normal 2.3-8.1 [facility] ([place] Comment on above: Performed By: #### G FR, ADIFF, BMP, PRO, ANEU, CBC, A1C, MORPH #### [place] [id number] A1Con 09-11-2023 HbA1c (Bld) [Mass fraction] 5.4 % Normal 4.0-6.0 [facility] ([place] Comment on above: Performed By: #### G FR, ADIFF, BMP, PRO, ANEU, CBC, A1C, MORPH #### [place] [address] APTTon 09-11-2023 aPTT Coag (Bld) [Time] 28.1 s Normal 25.0-35.0 [facility] ([place] Comment on above: Result Comment: For Heparin anticoagulation therapy, the recommended therapeutic range is: 54-77 seconds (APTT Correlation with Anti-Xa therapeutic range of 0.3-0.7 units/ml). PLEASE REFERENCE THE PHARMACY PROTOCOL FOR DOSING. Performed By: #### G FR, ADIFF, BMP, PRO, ANEU, CBC, A1C, MORPH #### [address] [address] Heparin dose (APTT) Unknown Normal [facility] ([place]) Comment on above: Performed By: #### G FR, ADIFF, BMP, PRO, ANEU, CBC, A1C, MORPH #### [address] [address] BMPon 09-11-2023 BUN/Creatinine Ratio 30.1 ratio High 10.0-22.0 [facility] ([place] Comment on above: Performed By: #### G FR, ADIFF, BMP, PRO, ANEU, CBC, A1C, MORPH #### [address] [address] Calcium [Mass/Vol] 9.3 mg/dL Normal 8.7-10.4 [facility] ([place]) Comment on above: Performed By: #### G FR, ADIFF, BMP, PRO, ANEU, CBC, A1C, MORPH #### [place] [address] Chloride [Moles/Vol] 106 mmol/L Normal 98-110 [facility] ([place] Comment on above: Performed By: #### G FR, ADIFF, BMP, PRO, ANEU, CBC, A1C, MORPH #### [place] [id number] CO2 [Moles/Vol] 29 mmol/L Normal 22-32 [facility] ([place]) Comment on above: Performed By: #### G FR, ADIFF, BMP, PRO, ANEU, CBC, A1C, MORPH #### [place] [address] Creatinine [Mass/Vol] 0.73 mg/dL Normal 0.50-1.20 [facility] [place] Comment on above: Performed By: #### G FR, ADIFF, BMP, PRO, ANEU, CBC, A1C, MORPH #### [address] [address] Electrolyte Balance 7.0 mEq/L Normal 4.0-15.0 [facility] ([place] Comment on above: Performed By: #### G FR, ADIFF, BMP, PRO, ANEU, CBC, A1C, MORPH #### [address] [address] Glucose [Mass/Vol] 108 mg/dL Normal 82-115 [facility] ([place] Comment on above: Performed By: #### G FR, ADIFF, BMP, PRO, ANEU, CBC, A1C, MORPH #### [place] [id number] Potassium [Moles/Vol] 4.2 mmol/L Normal 3.5-5.0 [facility] ([place] Comment on above: Performed By: #### G FR, ADIFF, BMP, PRO, ANEU, CBC, A1C, MORPH #### [place] [id number] Sodium [Moles/Vol] 142 mmol/L Normal 136-145 [facility] ([place] Comment on above: Performed By: #### G FR, ADIFF, BMP, PRO, ANEU, CBC, A1C, MORPH #### [place] [address] Urea nitrogen [Mass/Vol] 22.0 mg/dL Normal 8.0-22.0 [facility] ([place] Comment on above: Performed By: #### G FR, ADIFF, BMP, PRO, ANEU, CBC, A1C, MORPH #### [place] [address] CBCon 09-11-2023 Erythrocyte distribution width (RBC) [Ratio] 17.3 % High 11.5-15.5 [facility] ([place] Comment on above: Performed By: #### G FR, ADIFF, BMP, PRO, ANEU, CBC, A1C, MORPH #### [place] [address] Hematocrit (Bld) [Volume fraction] 43.8 % Normal 34.0-46.0 [facility] ([place] Comment on above: Performed By: #### G FR, ADIFF, BMP, PRO, ANEU, CBC, A1C, MORPH #### [place] [address] Hgb 14.9 G/dL Normal 12.0-16.0 [facility] [place] Comment on above: Performed By: #### G FR, ADIFF, BMP, PRO, ANEU, CBC, A1C, MORPH #### [place] [address] MCH (RBC) [Entitic mass] 31.1 pg Normal 27.0-33.0 [facility] [place] Comment on above: Performed By: #### G FR, ADIFF, BMP, PRO, ANEU, CBC, A1C, MORPH #### [address] [address] MCHC 34.1 G/dL Normal 32.0-36.0 [facility] [place] Comment on above: Performed By: #### G FR, ADIFF, BMP, PRO, ANEU, CBC, A1C, MORPH #### [place] [address] MCV (RBC) [Entitic vol] 91.2 fL Normal 80.0-99.0 [facility] [place] Comment on above: Performed By: #### G FR, ADIFF, BMP, PRO, ANEU, CBC, A1C, MORPH #### [place] [address] Platelet 247 10 3/mcL Normal 150-450 [facility] ([place] Comment on above: Performed By: #### G FR, ADIFF, BMP, PRO, ANEU, CBC, A1C, MORPH #### [place] [address] Platelet mean volume (Bld) [Entitic vol] 7.4 fL Normal 6.6-10.5 [facility] [place] Comment on above: Performed By: #### G FR, ADIFF, BMP, PRO, ANEU, CBC, A1C, MORPH #### [place] [address] RBC 4.80 10 6/mcL Normal 4.10-5.30 [facility] ([place] Comment on above: Performed By: #### G FR, ADIFF, BMP, PRO, ANEU, CBC, A1C, MORPH #### [place] [address] WBC 8.6 10 3/mcL Normal 4.5-10.8 [facility] [place] Comment on above: Performed By: #### G FR, ADIFF, BMP, PRO, ANEU, CBC, A1C, MORPH #### [place] [address] PROon 09-11-2023 INR Coag (PPP) [Relative time] 1.0 {INR} Normal [facility] ([place] Comment on above: Result Comment: [employer] (CHEST, 1992, 102:312S-25S) recommended therapeutic range for oral anticoagulant therapy is: LOW RISK: Prophylaxis of venous thrombosis INR: 2.0-3.0 Treatment of pulmonary embolism 2.0-3.0 Prevention of systemic embolism 2.0-3.0 HIGH RISK: Mechanical prosthetic valves 2.5-3.5 Performed By: #### G FR, ADIFF, BMP, PRO, ANEU, CBC, A1C, MORPH #### [facility] [address] [place] [address] PT Coag (PPP) [Time] 11.3 s Normal 9.0-14.2 [facility] ([place]) Comment on above: Result Comment: Effe ctive 03/09/08, Protime results may be affected by some antibiotics (i.e. Ciprofloxacin, Azithromycin, Bactrim) which may potentiate the action of oral anticoagulants, with further increases in Protime/INR. Performed By: #### G FR, ADIFF, BMP, PRO, ANEU, CBC, A1C, MORPH #### [facility] [address] [place] [address] XR CHEST 2 VIEWSon 4 XR CHEST [...] 09/11/2023 12:30:03 PM Ordering Provider: BLADIMIR HUSTON [facility] ([place]) CT THORAX W/O CONTRASTon CT THORAX W/O CONTRAST ORIGINAL EXAMINATION: CT OF THE CHEST WITHOUT [id number]/30/2023 10:32 am TECHNIQUE: CT of the chest [...] Sign Date: 07/25/2023 2:14:49 PM Ordering Provider: [facility] ([place]) CT THORAX W/O CONTRASTon CT THORAX W/O [...] 03/29/2023 10:17:12 AM Ordering Provider: LUDA ANN [facility] ([facility] Heart Perfusion W stress and W radionuclide Krystyna 06-29-2022 * * *Final Report* * * DATE OF EXAM: Jun 29 2022 11:09AM [facility] 0006 - [place] CARDIAC PERF STRESS/PHARM / PROCEDURE REASON: DYSPNEA ON EXERTION * * * * Physician Interpretation * * * * Stress Stack Yield Engineer Report: [facility] Date of service: 06/29/2022 8:16:44 AM Supervising [...] 60 minutes later. See administered doses below. [facility] Date of service: 06/29/2022 8:16:44 AM Ordering [...] of scarring. Final ------ Stress ECG Report: [facility] Date of service: 06/29/2022 8:16:44 AM Ordering physician: LUDA ANN financial services specialist: Damari Garcia RN Interpreting physician: Michele [...] 123/69 mmHg. The double product achieved was [id number]. Medications: Last Used BABY (more content not included)... [facility] RADIOLOGY Provider, Cristiane Hancock - 06/29/2022 * * *Final Report* * * DATE OF EXAM: Jun 29 2022 11:09AM [facility] 0006 - [place] CARDIAC PERF STRESS/PHARM / PROCEDURE REASON: DYSPNEA ON EXERTION * * * * Physician Interpretation * * * * Stress Stack Yield Engineer Report: [facility] Date of service: 06/29/2022 8:16:44 AM Supervising [...] 60 minutes later. See administered doses below. [facility] Date of service: 06/29/2022 8:16:44 AM Ordering [...] of scarring. Final ------ Stress ECG Report: [facility] Date of service: 06/29/2022 8:16:44 AM Ordering physician: LUDA ANN financial services specialist: Damari Garcia RN Interpreting physician: Michele [...] 123/69 mmHg. The double product achieved was [id number]. Medications: Last Used BABY ASPIRIN LUMIFY DETROL LA HYDROCODNE/ACETAMINOPH EN MVI VIT D3 FOLIC ACID LATANOPROST LIDOCAINE PATCH CYCLOBENAPRINE PRILOSEC ZOCOR MELOXICAM GABAPENTIN LISINOPRIL and HCTZ Resting ECG: Normal Sinus Rhythm Symptoms at rest: No symptoms Pharamcologic Protocol: R (more content not included)... [facility] Radiology Study observation (narrative) [facility] [place] Heart Perfusion W stress and W radionuclide IVOrdered By: [facility] Provider on 06-29-2022 [facility] No Panel Informationon 06-15 [facility] SPIROMETRY - BASELINE AND PO ST DILATORon 06-15-2022 DLCO (ml/min/mmHg) 17.59 ml/min/mmHg [facility] DLCO/VA (ml/min/mmHg/L) 4.93 ml/min/mmHg/L [facility] ERV BOX (L) 0.09 L [facility] FVQ16-63% POST (L/S) 1.37 L/S [facility] ROK77-92% PRE (L/S) 1.36 L/S [facility] FEV1 PRE (L) 1.65 L [facility] FEV1/FVC POST (%) 79 % [facility] FEV1/FVC PRE (%) 77 % [facility] FEV1_POST (L) 1.61 L [facility] FRC Box (L) 1.82 L [facility] FVC POST (L) 2.05 L [facility] FVC PRE (L) 2.13 L [facility] IC BOX (L) 1.69 L [facility] MVV (L/MIN) 54.05 L/MIN [facility] PEF POST (L/S) 6.08 L/S [facility] PEF PRE (L/S) 5.99 L/S [facility] RV Box (L) 1.63 L [facility] RV/TLC Box (%) 48 % [facility] TLC Box (L) 3.38 L [facility] VA (L) 3.58 L [facility] VC (L) BOX 1.78 L [facility] FLUOROSCOPY IN OR/PAIN MGTon 02-08-2022 FLUOROSCOPY IN [...] PINEDA M.D. Signed By: DANILO PINEDA M.D. [facility] XR FLUOROSCOPYon 02-08-2022 [facility] CHEST PA/AP AND LATERALon CHEST PA/AP AND [...] Hospital PTPN 01-12-2022 PT Progress Note Normal [facility] PTPNon 01-09-2022 PT Progress Note Normal [facility] PTPN Physical Therapy Outpatient Treatment Note Medical [...] OF HER BACK IS ONLY A 4/10 [facility] PATIENT NAME: EMPERATRIZ GHOSH [address] [facility] [address] MEDICAL REC #: [id number] [place] [address] ADMIT DATE: SERVICE DATE: 01/09/22 Physical Therapy [...] AND COMMUNITY RELATED TASKS IN 2-4 WEEKS. [facility] PATIENT NAME: EMPERATRIZ GHOSH [address] [facility] [address] MEDICAL REC #: [id number] [place] [address] ADMIT DATE: SERVICE DATE: 01/09/22 Physical Therapy Progress Note ATTENDING PHY: Fatoumata Lyn DO Status: ADDRESSED Range of Motion: PT TO ACHIEVE TRUNK AROM TO WFL/WNL MOST MOTIONS WITH LESS PAIN ON RETURN TO STANDING FROM FLEXED TRUNK POSTURE IN 2-4 WEEKS. Status: ADDRESSED Strength: PT TO (more content not included)... Normal [facility] 01-04-2022 PT Progress Note Normal [facility] PTPN Physical Therapy Outpatient Treatment Note Medical [...] PAIN IS ABOUT 5/10 THIS DATE. SHE [facility] PATIENT NAME: EMPERATRIZ GHOSH [address] [facility] [address] MEDICAL REC #: [id number] [place] [address] ADMIT DATE: SERVICE DATE: 01/04/22 Physical Therapy [...] OF THE SESSION BUT DID NOT RATE. [facility] PATIENT NAME: EMPERATRIZ GHOSH [address] [facility] [address] MEDICAL REC #: [id number] [place] [address] ADMIT DATE: SERVICE DATE: 01/04/22 Physical Therapy Progress Note ATTENDING AZALIA: Fatoumata Lyn DO Clinical Status Changes: Patient has not experienced significant, unusual or unexpected change in clinical status since their last visit. PLAN Treatment Frequency, Duration, and Interventions: Continue Physical Therapy to achieve goals per previously esta (more content not included)... [facility] Note Normal [facility] PTPN Physical Therapy Outpatient Treatment Note Medical [...] CONTINUES TO HAVE SOME PAIN AND RATED [facility] PATIENT NAME: EMPERATRIZ GHOSH [address] [facility] [address] MEDICAL REC #: [id number] [place] [address] ADMIT DATE: SERVICE DATE: 01/02/22 Physical Therapy [...] TO WFL/WNL MOST MOTIONS WITH LESS PAIN [facility] PATIENT NAME: EMPERATRIZ GHOSH [address] [facility] [address] MEDICAL REC #: [id number] [place] [address] ADMIT DATE: SERVICE DATE: 01/02/22 Physical Therapy [...] AND ROM (more content not included)... Normal [facility] PTPNon 12-28-2021 PT Progress Note Normal [facility] Physical Therapy Outpatient Treatment Note [...] SHE LEFT THE LAST SESSION SHE FELT [facility] PATIENT NAME: EMPERATRIZ GHOSH Katarzyna [address] [facility] [address] MEDICAL REC #: [id number] [place] [address] ADMIT DATE: SERVICE DATE: 12/28/21 Physical Therapy Progress Note ATTENDING PHY: Fatoumata Lyn DO SOME RELIEF FOR A COUPLE [...] STRENGTHENING, GENTLE TRUNK/HIP STRETCHING PT TOLERATES, HEP [facility] PATIENT NAME: EMPERATRIZ GHOSH [facility] [address] MEDICAL REC #: [id number] [place] [address] ADMIT DATE: SERVICE DATE: 12/28/21 Physical Therapy Progress Note ATTENDING PHY: Fatoumata Lyn DO Development of Plan of Care: There was no change to plan of care today. The pat (more content not included)... Normal [facility] PTPN 12-26-2021 PT Progress Note Normal [facility] PTPN Physical Therapy Outpatient Treatment Note Medical [...] SHE CONTINUES TO HAVE PAIN AND TIGHTNESS. [facility] PATIENT NAME: EMPERATRIZ GHOSH0 [facility] [address] MEDICAL REC #: [id number] [place] [address] ADMIT DATE: SERVICE DATE: 12/26/21 Physical Therapy [...] KNOWLEDGEABLE IN ABDOMINAL, GLUTEAL, HIP STRENGTHENING EXERCISES [facility] PATIENT NAME: EMPERATRIZ GHOSH [address] [facility] [address] MEDICAL REC #: [id number] [place] [address] ADMIT DATE: SERVICE DATE: 12/26/21 Physical Therapy Progress Note ATTENDING PHY: Fatoumata yLn DO AND ROM EXERCISES IF TOLERATED AND DO NOT EXACERBATE HER PAIN LEVEL. EDUCATE PT ON PROPER POSTURES AND BODY MECHANICS FOR LOWER BACK FOR ADL TASKS TO REDUCE SYMPTOM EXACERBATION BY ANY AMOUNT. Status: ADDRESSED Response to Visit: PATIENT TOLERATED TREATMENT FAIRLY WELL (more content not included)... Normal [facility] 12-20-2021 PT Progress Note Normal [facility] PTPN Physical Therapy Outpatient Treatment Note Medical [...] FELT SOME RELIEF FOR A COUPLE HOURS [facility] PATIENT NAME: EMPERATRIZ GHOSH [address] [facility] [address] MEDICAL REC #: [id number] [place] [address] ADMIT DATE: SERVICE DATE: 12/20/21 Physical Therapy [...] Visit Number: Today's visit is number 3 [facility] PATIENT NAME: EMPERATRIZ GHOSH [address] [facility] [address] MEDICAL REC #: [id number] [place] [address] ADMIT DATE: SERVICE DATE: 12/20/21 Physical Therapy Progress Note ATTENDING PHY: Faotumata Lyn DO Services: Total Billed: 40 minutes (Timed: 40, Untimed: 0) 15.00 Timed: [76435] PT estim unattended EA 15 min 25.00 Timed: [59234] PT -MANU (more content not included)... Normal [facility] 12-18-2021 PT Progress Note Normal [facility] Physical Therapy Outpatient Treatment Note [...] ABOUT 8/10 WHEN SHE IS UP AND [facility] PATIENT NAME: EMPERATRIZ GHOSH [address] [facility] [address] MEDICAL REC #: [id number] [place] [address] ADMIT DATE: SERVICE DATE: 12/18/21 Physical Therapy [...] AND DO NOT EXACERBATE HER PAIN LEVEL. [facility] PATIENT NAME: EMPERATRIZ GHOSH [address] [facility] [address] MEDICAL REC #: [id number] [place] [address] ADMIT DATE: SERVICE DATE: 12/18/21 Physical Therapy [...] processing. Entirely submitted in cassette A1. ---- [facility] NAME: EMPERATRIZ GHOSH Pathology and Laboratory Medicine UNIT#: [id number] LOC: [place] [employer]: Apple Elliott M.D. [id number] ROOM/BED: [facility] : 48 AGE/SEX: 70/F ORD.DR. Leon,Izzy Ceron MD CONTINUED ON NEXT PAGE ---- Patient: EMPERATRIZ GHOSH Unit#: [id number] (continued) SPECIMEN: [id number] GROSS DESCRIPTION B. The [...] and/or minor grammatical errors may exist. ---- [facility] NAME: EMPERATRIZ GHOSH Pathology and Laboratory Medicine UNIT#: [id number] LOC: [facility] [employer]: Apple Elliott M.D. [facility]#: [id number] ROOM/BED: [facility] : 48 AGE/SEX: 70/F ORD.Izzy Cash MD END OF REPORT Normal [facility] FLUOROSCOPY IN OR/PAIN MGTon 03-22-2021 FLUOROSCOPY IN [...] Dr. Jose Juan Springer MD Work Phone: [facility] 02-25-2025 14:46-0400 Body mass index (BMI) [Ratio] 44.1 kg/m2 Dr. Jose Juan Springer MD Work Phone: [facility] 02-25-2025 14:46-0400 Body weight 102.[address] Jose Juan Springer MD Work Phone: [facility] 06-25-2024 08:28-0400 Body height 152.4 cm Mahamed Cardona MD Work Phone: [facility] 06-25-2024 08:28-0400 Body mass index (BMI) [Ratio] 43.36 kg/m2 Mahamed Cardona MD Work Phone: [facility] 06-25-2024 08:28-0400 Body weight 100.7 kg Mahamed Cardona MD Work Phone: [facility] 06-25-2024 08:28-0400 Diastolic blood pressure 80 mm[Hg] Mahamed Cardona MD Work Phone: [facility] 06-25-2024 08:28-0400 Heart rate 95 /min Mahamed Cardona MD Work Phone: [facility] 06-25-2024 08:28-0400 SaO2% (BldA) [Mass fraction] 91 % Mahamed Cardona MD Work Phone: [facility] 06-25-2024 08:28-0400 Systolic blood pressure 117 mm[Hg] Mahamed Cardona MD Work Phone: [facility] 12-18-2023 10:130400 Body temperature 97.2 [degF] Maynor Robles PA-C Work Phone: [facility] 12-18-2023 10:13-0400 Diastolic blood pressure 59 mm[Hg] Maynor Robles PA-C Work Phone: [facility] 12-18-2023 10:13-0400 Heart rate 104 /min Maynor Robles PA-C Work Phone: [facility] 12-18-2023 10:13-0400 Respiratory rate 18 /min Maynor Robles PA-C Work Phone: [facility] 12-18-2023 10:13-0400 SaO2% (BldA) [Mass fraction] 94 % Maynor Robles PA-C Work Phone: [facility] 12-18-2023 10:130400 Systolic blood pressure 92 mm[Hg] Maynor Roblse PA-C Work Phone: [facility] 04-15-2023 15:20-0400 Body height 152.4 cm Fatoumata Lyn DO Work Phone: [facility] 04-15-2023 15:20-0400 Body weight 101.61 kg Fatoumata Lyn DO Work Phone: [facility] 04-15-2023 15:20-0400 Diastolic blood pressure 86 mm[Hg] Fatoumata Lyn DO Work Phone: [facility] 04-15-2023 15:20-0400 Heart rate 107 /min Fatoumata Lyn DO Work Phone: [facility] 04-15-2023 15:20-0400 Respiratory rate 19 /min Fatoumata Lyn DO Work Phone: [facility] 04-15-2023 15:20-0400 SaO2% (BldA) [Mass fraction] 99 % Fatoumata Lyn DO Work Phone: [facility] 04-15-2023 15:20-0400 Systolic blood pressure 140 mm[Hg] Fatoumata Lyn DO Work Phone: [facility] 01-07-2023 11:33-0400 Body height 155.4 cm Alexissyl Lyn DO Work Phone: [facility] 01-07-2023 11:33-0400 Body weight 105.23 kg Alexissyl Lyn DO Work Phone: [facility] 01-07-2023 11:33-0400 Diastolic blood pressure 85 mm[Hg] Fatoumata Lyn DO Work Phone: [facility] 01-07-2023 11:33-0400 Heart rate 98 /min Fatoumata Lyn DO Work Phone: [facility] 01-07-2023 11:33-0400 Respiratory rate 19 /min Fatoumata Lyn DO Work Phone: [facility] 01-07-2023 11:33-0400 SaO2% (BldA) [Mass fraction] 94 % Fatoumata Lyn DO Work Phone: [facility] 01-07-2023 11:33-0400 Systolic blood pressure 142 mm[Hg] Fatoumata Lyn DO Work Phone: [facility] 10-29-2022 10:47-0500 Body height 155.4 cm Alexissyl Lyn DO Work Phone: [facility] 10-29-2022 10:47-0500 Body weight 104.78 kg Fatoumata Lyn DO Work Phone: [facility] 10-29-2022 10:47-0500 Diastolic blood pressure 94 mm[Hg] Fatoumata Lyn DO Work Phone: [facility] 10-29-2022 10:47-0500 Heart rate 109 /min Fatoumata Lyn DO Work Phone: [facility] 10-29-2022 10:47-0500 Respiratory rate 19 /min Fatoumata Lyn DO Work Phone: [facility] 10-29-2022 10:47-0500 SaO2% (BldA) [Mass fraction] 95 % Fatoumata Lyn DO Work Phone: [facility] [facility] 10-29-2022 10:47-0500 Systolic blood pressure 154 mm[Hg] Fatoumata Lyn DO Work Phone: [facility] 10-02-2022 14:09-0500 Body height 155.4 cm Fatoumata Lyn DO Work Phone: [facility] 10-02-2022 14:09-0500 Body weight 105.69 kg Fatoumata Lyn DO Work Phone: [facility] 10-02-2022 14:09-0500 Diastolic blood pressure 62 mm[Hg] Fatoumata Lyn DO Work Phone: [facility] 10-02-2022 14:09-0500 Heart rate 112 /min Fatoumata Lyn DO Work Phone: [facility] 10-02-2022 14:09-0500 Respiratory rate 19 /min Fatoumata Lyn DO Work Phone: [facility] 10-02-2022 14:09-0500 SaO2% (BldA) [Mass fraction] 93 % Fatoumata Lyn DO Work Phone: [facility] 10-02-2022 14:09-0500 Systolic blood pressure 101 mm[Hg] Fatoumata Lyn DO Work Phone: [facility] 04-16-2022 09:55-0400 Body height 161.5 cm Fatoumata Lyn DO Work Phone: [facility] 04-16-2022 09:55-0400 Body weight 107.96 kg Fatoumata Lyn DO Work Phone: [facility] 04-16-2022 09:55-0400 Diastolic blood pressure 85 mm[Hg] Fatoumata Lyn DO Work Phone: [facility] 04-16-2022 09:55-0400 Heart rate 107 /min Fatoumata Lyn DO Work Phone: [facility] 04-16-2022 09:55-0400 Respiratory rate 19 /min Fatoumata Lyn DO Work Phone: [facility] 04-16-2022 09:55-0400 SaO2% (BldA) [Mass fraction] 98 % Fatoumata Lyn DO Work Phone: [facility] 04-16-2022 09:55-0400 Systolic blood pressure 130 mm[Hg] Fatoumata Lyn DO Work Phone: [facility] 02-15-2022 10:40-0400 Body height 161.5 cm Fatoumata Lyn DO Work Phone: [facility] 02-15-2022 10:40-0400 Body weight 107.96 kg Fatoumata Lyn DO Work Phone: [facility] 02-15-2022 10:40-0400 Diastolic blood pressure 92 mm[Hg] Fatoumata Lyn DO Work Phone: [facility] 02-15-2022 10:40-0400 Heart rate 111 /min Fatoumata Lyn DO Work Phone: [facility] 02-15-2022 10:40-0400 Respiratory rate 19 /min Fatoumata Lyn DO Work Phone: [facility] 02-15-2022 10:40-0400 SaO2% (BldA) [Mass fraction] 94 % Fatoumata Lyn DO Work Phone: [facility] 02-15-2022 10:40-0400 Systolic blood pressure 127 mm[Hg] Fatoumata Lyn DO Work Phone: [facility] Encounters Encounter Date Encounter Type Care Provider Facility Start: 03-30-2025 ambulatory Luda Ann Facility:[facility] Start: 02-25-2025 End: 02-25-[address] Rodriguez Coleman MD [facility] Start: 02-25-2025 End: 02-25-2025 ambulatory Jose Juan Springer [facility] Start: 09-21-2024 End: 09-21-2024 ambulatory [facility] Facility:[id number] Start: 09-02-2024 End: 09-02-2024 Telephone encounter Mahamed Cardona MD Work Phone: [facility] Comment on above: Patient Update (Anyi ent notified of heart cath 09/18/2024 @ 8:00AM. 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 Please place order in chart. Janet Wiley LPN/) Start: 08-20-2024 End: 08-20-2024 Telephone encounter Mahamed Cardona MD Work Phone: [facility] Comment on above: Medication Problem ( [...] Telephone encounter Mahamed Cardona MD Work Phone: [facility] Start: 06-25-2024 End: 06-25-2024 Office outpatient visit 40 minutes Mahamed Cardona MD Work Phone: [facility] Comment on above: Coronary artery calc ification seen on CT scan (Primary Dx); Dyspnea, unspecified type; Hypercholesterolemia; Primary hypertension; BMI 40.0-44.9, adult (HCC); Encounter for screening for cardiovascular disorders Start: 06-25-2024 End: 06-25-2024 ambulatory MAHAMED CARDONA Facility:[id number] Start: 06-23-2024 Patient encounter status Madi Cardona MD Work Phone: [facility] Start: 06-23-2024 Preoperative state Mahamed harkins MD Work Phone: [facility] Start: 06-18-2024 End: 06-18-[address] LUDA ANN DO Facility:A Start: 03-12-2024 Telephone encounter Mahamed Cardona MD Work Phone: [facility] Comment on above: Appointment Start: 02-19-2024 Telephone encounter Jaci marshall APRN.DOOR FRAME BUILDER Work Phone: Pain [facility] Comment on above: 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 - O ther Appointment Start: 02-13-2024 ambulatory KARY CHASE Facility:[id number] Start: 02-13-2024 End: 02-13-2024 Subsequent hospital visit by physician Xr [facility] Work Phone: [facility] Start: 02-03-2024 End: 02-03-2024 ambulatory EVERETT MCCULLOUGH MD Facility:A Start: 01-22-2024 Refill Maynor san PA-C Work Phone: Pain Management Comment on above: Refill Request Start: 12-31-2023 Telephone encounter Maynor Robles PA-C Work Phone: Pain Management Comment on above: pain pump referral Start: 12-23-2023 End: 12-23-2023 ambulatory Laura Shaffer PT, DPT Work Phone: [facility] [place] Comment on above: Decreased range of m otion of left knee (Primary Dx); Presence of left artificial knee joint; Weakness Start: 12-18-2023 End: 12-18-2023 ambulatory Dwain Kolb PTA [facility] [place] Comment on above: Decreased [...] Start: 12-18-2023 End: 12-18-2023 ambulatory MAYNOR ROBLES Facility:[id number] Start: 12-16-2023 Telephone encounter Maynor Robles PA-C Work Phone: Pain Management Comment on above: IT pump referral Start: 12-11-2023 End: 12-11-2023 ambulatory Dwain Erwin Ciccarone DIRECTOR OF EVENTS [facility] [place] Comment on above: Decreased range of m otion of left knee (Primary Dx); Presence of left artificial knee joint; Weakness Start: 12-09-2023 Telephone encounter Boubacar Andrews MD Work Phone: Pain Management Comment on above: Pain Pump Start: 12-09-2023 End: 12-09-2023 ambulatory Dwain M Ciccarone DIRECTOR OF EVENTS [facility] [place] Comment on above: Decreased range of m otion of left knee (Primary Dx); Presence of left artificial knee joint; Weakness Start: 12-04-2023 End: 12-04-2023 ambulatory Dwain M Ciccarone DIRECTOR OF EVENTS [facility] [place] Comment on above: Decreased range of m otion of left knee (Primary Dx); Presence of left artificial knee joint; Weakness Start: 12-02-2023 End: 12-02-2023 ambulatory Dwain M Ciccarone DIRECTOR OF EVENTS [facility] [place] Comment on above: Decreased range of m otion of left knee (Primary Dx); Presence of left artificial knee joint; Weakness Start: 11-27-2023 End: 11-27-2023 ambulatory Laura Shaffer PT, DPT Work Phone: [facility] [place] Comment on above: Decreased [...] Start: 11-21-2023 End: 11-21-2023 ambulatory MAYA GOEL [facility]:[id number] Start: 11-19-2023 End: 11-19-2023 Refill Maynor Robles [...] ambulatory Laura Shaffer PT, DPT Work Phone: [email or web address] [place] Comment on above: Decreased range of m otion of left knee (Primary Dx); Presence of left artificial knee joint; Weakness Start: 11-11-2023 End: 11-11-2023 ambulatory Laura Shaffer PT, DPT Work Phone: [facility] [place] Comment on above: Decreased range of m otion of left knee (Primary Dx); Presence of left artificial knee joint; Weakness Start: 11-06-2023 End: 11-06-2023 ambulatory Laura Shaffer PT, DPT Work Phone: [facility] [place] Comment on above: Decreased range of m otion of left knee (Primary Dx); Presence of left artificial knee joint; Weakness Start: 11-04-2023 End: 11-04-2023 ambulatory Laura Shaffer PT, DPT Work Phone: [email or web address] [place] Comment on above: Decreased range of m otion of left knee (Primary Dx); Presence of left artificial knee joint; Weakness Start: 11-01-2023 End: 11-01-2023 ambulatory Dwain Kolb PTA [facility] [place] Comment on above: Decreased range of m otion of left knee (Primary Dx); Presence of left artificial knee joint; Weakness Start: 10-30-2023 End: 10-30-2023 ambulatory Laura Shaffer PT, DPT Work Phone: [facility] [place] Comment on above: Decreased range of m otion of left knee (Primary Dx); Presence of left artificial knee joint; Weakness Start: 10-28-2023 End: 10-28-2023 ambulatory Dwain Kolb PTA [facility] [place] Comment on above: Decreased range of m otion of left knee (Primary Dx); Presence of left artificial knee joint; Weakness Start: 10-25-2023 End: 10-25-2023 ambulatory Dwain Kolb PTA [facility] [place] Comment on above: Decreased range of m otion of left knee (Primary Dx); Presence of left artificial knee joint; Weakness Start: 10-23-2023 End: 10-23-2023 ambulatory Dwain Kolb PTA [facility] [place] Comment on above: Decreased range of m otion of left knee (Primary Dx); Presence of left artificial knee joint; Weakness Start: 10-18-2023 End: 10-18-2023 ambulatory Dwain Kolb PTA [facility] [place] Comment on above: Decreased range of m otion of left knee (Primary Dx); Presence of left artificial knee joint; Weakness Start: 10-17-2023 Telephone encounter Boubacar Andrews MD Work Phone: Pain Management Comment on above: Patient Update (S/p TKR) Start: 10-16-2023 End: 10-16-2023 ambulatory Laura Shaffer PT, DPT Work Phone: [facility] [place] Comment on above: Decreased range of m otion of left knee (Primary Dx); Presence of left artificial knee joint; Weakness Start: 10-14-2023 End: 10-14-2023 ambulatory Dwain Kolb PTA [facility] [place] Comment on above: Decreased range of m otion of left knee (Primary Dx); Presence of left artificial knee joint; Weakness Start: 10-11-2023 End: 10-11-2023 ambulatory Maya Goel PTA [facility] [place] Comment on above: Decreased range of m otion of left knee (Primary Dx); Presence of left artificial knee joint; Weakness Start: 10-09-2023 End: 10-09-2023 ambulatory Dwain Kolb PTA [facility] [place] Comment on above: Decreased range of m otion of left knee (Primary Dx); Presence of left artificial knee joint; Weakness Start: 10-07-2023 End: 10-07-2023 ambulatory Laura Shaffer PT, DPT Work Phone: [facility] [place] Comment on above: Decreased range of m otion of left knee (Primary Dx); Presence of left artificial knee joint; Weakness Start: 10-03-2023 End: 10-03-2023 ambulatory Maya Erwin Goel LINDA [facility] [place] Comment on above: Decreased range of m otion of left knee (Primary Dx); Weakness; Presence of left artificial knee joint Start: 10-02-2023 End: 10-02-2023 ambulatory Laura Shaffer PT, DPT Work Phone: [facility] [place] Comment on above: Decreased range of m [...] MCCULLOUGH MD Facility:A Start: 07-10-2023 End: 07-10-2023 [facility] YEAST SUPERVISORKatieDOOR FRAME BUILDER Work Phone: [facility] Comment on [...] 06-05-2023 Patient encounter procedure EVERETT MCCULLOUGH MD [facility] Start: 04-15-2023 End: 04-15-2023 Patient encounter procedure [...] Request Start: 03-21-2023 Telephone encounter Jaci marshall YEAST SUPERVISOR.DOOR FRAME BUILDER Work Phone: Pain Management Comment on above: 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 - O ther Start: 02-13-2023 End: 02-13-2023 [facility] Jaci Nixon YEAST SUPERVISOR.DOOR FRAME BUILDER Work Phone: [facility] Comment on above: Lumbar postlaminecto my syndrome [...] Refill Request Start: 10-30-2022 Refill Jaci Nixon DOOR FRAME BUILDER Work Phone: [facility] Comment on [...] 10-16-2022 Patient encounter procedure [facility] Prov ider [facility] Department Start: 10-10-2022 Refill Fatoumata Boyd DO [...] /reports status Fatoumata Lyn DO Work Phone: [facility] Start: 09-28-2022 Refill Fatoumata Boyd DO Work Phone: Pain Management Start: 09-26-2022 Telephone encounter Fatoumata Lyn DO Work Phone: Pain Management Comment on above: Appointment pacc hx call Start: 09-19-2022 End: 09-19-2022 [facility] Jaci Nixon YEAST SUPERVISOR.DOOR FRAME BUILDER Work Phone: Pain [facility] Comment on above: Lumbar postlaminecto my syndrome [...] Management Start: 08-21-2022 Telephone encounter Jaci marshall YEAST SUPERVISOR.DOOR FRAME BUILDER Work Phone: Pain [facility] Comment on above: Orders Start: 08-06-2022 Refill Fatoumata Boyd DO Work Phone: Pain Management Comment on above: Refill Request Start: 07-11-2022 Transcribe Orders Luda davidson DO Work Phone: [facility] Comment on above: Obstructive sleep ap radha (Primary Dx) Start: 06-29-2022 End: 06-29-2022 Subsequent hospital visit by physician Prep Room 1 [facility] Nuclear Medicine Comment on above: Other forms of dyspn ea [R06.09] Start: 06-27-2022 Telephone encounter Fatoumata Lyn DO Work Phone: Pain Management Comment on above: Schedule Pump trial Start: 06-20-2022 Chart abstracting Beth izquierdo ENDOSCOPY SPECIALTY TECHNICIAN [facility] Start: 06-15-2022 End: 06-15-2022 ambulatory Pulm Mob Work Phone: [facility] Comment on above: Spirometry Start: 06-15-2022 End: 06-15-2022 Patient encounter procedure Pulm Lab [facility] Mob Work Phone: [facility]NANDE[facility] Start: [...] Start: 03-13-2022 End: 03-13-2022 ambulatory Jaci Nixon APRN.DOOR FRAME BUILDER Work Phone: Pain Management Comment on above: Chronic pain syndrom e (Primary Dx); Myalgia; Acute arthropathy; Radiculitis, thoracic Start: 03-13-2022 End: 03-13-2022 Telemedicine consultation with patient Jaci E Nixon YEAST SUPERVISOR.DOOR FRAME BUILDER Work Phone: [facility] Start: 02-22-2022 Refill Jaci Nixon YEAST SUPERVISOR.DOOR FRAME BUILDER Work Phone: Pain Management Comment on above: [...] Patient encounter procedure DR ZACHARY FORBES MD [facility] Start: 08-15-2021 End: 08-15-2021 Subsequent hospital [...] Start: 10-27-2020 End: 10-27-2020 Patient encounter procedure [facility] Start: 09-29-2020 End: 09-29-2020 Patient encounter procedure [facility] Procedures Date Procedure Procedure Detail Performing Clinician Start: 08-20-2024 Myocardial spect multiple studies Mahamed Cardona MD Work Phone: Start: 02-13-2024 Radex spine lumbscrl compl w/bending views min 6 Ankita Judy YEAST SUPERVISOR.CUTLET MAKER PORK Work Phone: Start: 10-29-2022 H/O: surgery History of art hroplasty [Z98.890 (ICD-10-CM)] Fatoumata Lyn DO Work Phone: Start: 06-29-2022 Myocardial spect multiple studies Luda Ann DO Work Phone: Start: 06-15-2022 Brncdilat rspse spmt ry pre&post-brncdilat admn Provider [facility] Start: 06-15-2022 MAXIMAL VOLUNTARY VENTILATION Provider [facility] Start: 02-08-2022 Fluoroscopy up to 1 [...] of arthr oplasty [Z98.890 (ICD-10-CM)] Jaci Nixon YEAST SUPERVISOR.DOOR FRAME BUILDER Work Phone: H/O: surgery History of arthr oplasty [Z98.890 (ICD-10-CM)] Fatoumata Lyn DO Work Phone: H/O: surgery History of arthr oplasty [Z98.890 (ICD-10-CM)] Jaci Nixon YEAST SUPERVISOR.DOOR FRAME BUILDER Work Phone: Hysterectomy DR ZACHARY Hawley Insertion of hip prosthesis DR ZACHARY FORBES MD Comment on above: Right Left Operation on bladder DR JOYCELYN FORBES MD Tonsillectomy DR ZACHARY FORBES MD Plan of Treatment Date Care Activity Detail Author Start: 01-22-2033 Urine microalbumin profile DTaP,Tdap,Td Vaccine (2 - Td or Tdap) [facility] Start: 09-07-2025 DIABETES SCREEN DIABETES SCREEN [facility] Start: 09-07-2025 Diabetes Screening Diabetes Screenin g [facility] Start: 02-25-2025 X-ray of lumbosacral spine L/S Spine Min 4 Views [facility] Start: 02-25-2025 XR Spine Lumbar and Sacrum GE 4 Views [facility] Start: 02-25-2025 XR Thoracic spine Views [facility] Start: 02-25-2025 Xray thoracic spine Thoracic Spine 2 Views [facility] Start: 09-18-2024 End: 09-18-2024 Admission to same day surgery center 09/18/2024 8:00 AM EST - 09/18/2024 9:00 AM EST Surgery MR CARDIAC WIRE WEB WORKER [address] [place] [address] Maynor Fernandez MD [address] [facility] [address] [place] [address]ON[address] W IMAGE INJECT & INTERP W LT HEART CATH W INJECT LT VENTRGRAPHY MR CARDIAC WIRE WEB WORKER Comment on above: CORONARY ANGIO W CAT [...] stress test 09/18/2024 8:00 AM EST MR WIRE WEB WORKER Start: 09-18-2024 Subsequent hospital visit by physician 09/18/2024 8:00 AM EST Hospital Encounter MR CARDIAC WIRE WE[employer] WORKER [address] [place] [address] Maynor Fernandez MD [address] [place] [address] Chest discomfort [R07.89], Abnormal stress test [R94.39] MR CARDIAC WIRE WEB WORKER Comment on above: Chest discomfort [R0 7.89], Abnormal stress test [R94.39] Start: 09-08-2024 End: 12-08-2024 Basic metabolic 2000 panel - Serum or Plasma BASIC METABOLIC PANEL Lab Routine Coronary artery disease involving kashia coronary artery of kashia heart without angina pectoris Chest discomfort Abnormal stress test Expected: 09/08/2024 (Approximate), Expires: 12/08/2024 [facility] Work Phone: Comment on above: Expected: 09/08/2024 (Approximate), Expires: 12/08/2024 Start: 09-08-2024 End: 12-08-2024 PT panel - Platelet poor plasma by Coagulation assay PROTHROMBIN TIME Lab Routine Coronary artery disease involving kashia coronary artery of kashia heart without angina pectoris Chest discomfort Abnormal stress test Expected: 09/08/2024 (Approximate), Expires: 12/08/2024 [facility] Comment on above: Expected: 09/08/2024 (Approximate), Expires: 12/08/2024 Start: 09-01-2024 End: 12-01-2024 CBC W Auto Differential panel - Blood COMPLETE BLOOD COUNT AND DIFFERENTIAL Lab Routine Coronary artery disease involving kashia coronary artery of kashia heart without angina pectoris Chest discomfort Abnormal stress test Expected: 09/01/2024, Expires: 12/01/2024 [facility] Comment on above: Expected: 09/01/2024 , Expires: 12/01/2024 Start: 08-26-2024 Advance Directive Discussion Advance Directive Discussion [facility] Start: 08-20-2024 End: 08-20-2024 Patient encounter procedure Nuclear Medicine Comment on above: NM CARDIAC PERF STRE SS/PHARM Start: 07-25-2024 End: 07-25-2025 NM Heart Perfusion W stress and W radionuclide IV NM CARDIAC PERF STRESS/PHARM Radiology Routine Coronary artery calcification seen on CT scan Dyspnea, unspecified type Encounter for screening for cardiovascular disorders Expected: 07/25/2024, Expires: 07/25/2025 [facility] Comment on above: Expected: 07/25/2024 , Expires: 07/25/2025 Start: 06-25-2024 End: 06-25-2024 Patient encounter procedure 06/25/2024 8:30 AM EDT Office Visit [facility] [address] [place] [address] Mahamed Cardona MD [address] [place] [address] New patient referral [facility] Comment on above: New patient referral Start: 2024 RSV Vaccine (1 - 1-d ose 75+ series) RSV Vaccine (1 - 1-dose 75+ series) [facility] Start: 04-26-2024 Covid-19 Vaccine ( season) Covid-19 Vaccine () [facility] Start: 04-26-2024 Influenza vaccination Influenza Vacc ine (#1) [facility] Start: 03-18-2024 End: 03-18-2024 Patient encounter procedure 03/18/2024 10:00 AM EDT Office Visit Pain Management [address] [place] [address] Maynor Robles, PA-C [address] [place] [address] FOLLOW UP 3 [facility] Comment on above: FOLLOW UP 3 [facility] Start: 12-23-2023 End: 12-23-2023 ambulatory [facility] Comment on above: left knee left knee re- víctor l Start: 12-18-2023 End: 12-18-2023 ambulatory 12/18/2023 1:30 PM EDT OT/PT/Speech Visit [facility] [address] [place] [address] Ciccarone, Dwain M, DIRECTOR OF EVENTS left knee [facility] Comment on above: left knee Start: 12-18-2023 End: 12-18-2023 Patient encounter procedure 12/18/2023 10:00 AM EDT Office Visit Pain Management [address] [place] [address] Maynor Robles, PA-C [address] [place] [address] FOLLOW UP 3 [facility] Comment on above: FOLLOW UP 3 [facility] Start: 08-26-2023 Advance Directive Discussion Advance Directive Discussion [facility] Start: 08-26-2023 Behavioral Health Screening Behavioral Health Screening [facility] Start: 08-26-2023 Depression Assessment Depression Ass essment [facility] Start: 04-26-2023 Covid-19 Vaccine ( season) Covid-19 Vaccine () [facility] Start: 04-26-2023 Influenza vaccination INFLUENZA (#1) [facility] Start: 01-07-2023 End: 03-09-2023 TOXASSURE FLEX 23, URINE TOXASSURE FLEX 23, URINE Lab Routine Lumbar postlaminectomy syndrome Acute arthropathy History of arthroplasty [Z98.890 (ICD-10-CM)] Lumbar radiculopathy DDD (degenerative disc disease), lumbar Intervertebral disc disorder with radiculopathy of lumbar region Myalgia [M79.10 (ICD-10-CM)] Expected: 01/07/2023, Expires: 03/09/2023 [facility] Work Phone: Comment on above: Expected: 01/07/2023 , Expires: 03/09/2023 Start: 12-05-2022 COVID-19 VACCINE (5 - Pfizer series) COVID-19 VACCINE (5 - Pfizer series) [facility] Start: 08-26-2022 ADVANCE DIRECTIVE DISCUSSION ADVANCE DIRECTIVE DISCUSSION [facility] Start: 08-26-2022 DEPRESSION ASSESSMENT DEPRESSION ASS ESSMENT [facility] Start: 08-21-2022 End: 10-21-2022 TOXASSURE FLEX 23, URINE TOXASSURE FLEX 23, URINE Lab Routine High risk medication use Expected: 08/21/2022, Expires: 10/21/2022 [facility] Work Phone: Comment on above: Expected: 08/21/2022 , Expires: 10/21/2022 Start: 04-26-2022 Influenza vaccination [facility] Start: 03-07-2022 Colonoscopy COLONOSCOPY [facility] Start: 03-07-2022 COLORECTAL CANCER SCREENING COLORECTAL CANCER SCREENING [facility] Start: 09-26-2021 COVID-19 VACCINE (4 - Booster for Pfizer series) COVID-19 VACCINE (4 - Booster for Pfizer series) [facility] Start: 08-26-2021 ADVANCE DIRECTIVE DISCUSSION ADVANCE DIRECTIVE DISCUSSION [facility] Start: 08-26-2021 DEPRESSION ASSESSMENT DEPRESSION ASS ESSMENT [facility] Start: 07-21-2021 COVID-19 VACCINE (4 - Booster for Pfizer series) COVID-19 VACCINE (4 - Booster for Pfizer series) [facility] Start: 05-18-2017 Pneumococcal Vaccine : 50+ (2 of 2 - PPSV23) Pneumococcal Vaccine: 50+ (2 of 2 - PPSV23) [facility] Start: 05-18-2017 Pneumococcal Vaccine : 65+ (2 - PPSV23 or PCV20) Pneumococcal Vaccine: 65+ (2 - PPSV23 or PCV20) [facility] Start: 05-18-2017 Pneumococcal Vaccine : 65+ (2 of 2 - PPSV23 or PCV20) Pneumococcal Vaccine: 65+ (2 of 2 - PPSV23 or PCV20) [facility] Start: 05-18-2017 PNEUMOCOCCAL: 65+ (2 - PPSV23 if available, else PCV20) PNEUMOCOCCAL: 65+ (2 - PPSV23 if available, else PCV20) [facility] Start: 05-18-2017 PNEUMOCOCCAL: 65+ (2 - PPSV23 or PCV20) PNEUMOCOCCAL: 65+ (2 - PPSV23 or PCV20) [facility] Start: 2014 BONE DENSITY BONE DENSITY [facility] Start: 2014 Bone Density Screening Bone Density Screening [facility] Start: 2014 PNEUMOCOCCAL: 65+ (1 - PCV) PNEUMOCOCCAL: 65+ (1 - PCV) [facility] Start: 2014 Screening for osteoporosis Bone Density Screening [facility] Start: 2009 RSV Vaccine (1 - 1-d ose 60+ series) RSV Vaccine (1 - 1-dose 60+ series) [facility] Start: 2009 RSV Vaccine (1 - Ris k 60-74 years 1-dose series) RSV Vaccine (1 - Risk 60-74 years 1-dose series) [facility] Start: 1999 SHINGRIX VACCINE (1 of 2) SHINGRIX VACCINE (1 of 2) [facility] Start: 1994 COLOGUARD (FIT-DNA) COLOGUARD (FIT-D NA) [facility] Start: 1994 Colonoscopy COLONOSCOPY [facility] Start: 1994 COLORECTAL CANCER SCREENING COLORECTAL CANCER SCREENING [facility] Start: [address] COLONOGRAPHY [facility] Start: 1994 DIABETES SCREEN DIABETES SCREEN [facility] Start: 1994 FECAL OCCULT BLOOD FECAL OCCULT BLOO D [facility] Start: 1994 Lipid 1996 panel - Serum or Plasma Lipid Screening [facility] Start: 1994 Lipid panel Lipid Screening [facility] Start: 1994 LIPID SCREEN LIPID SCREEN [facility] Start: 1994 Screening for malign ant neoplasm of colon [facility] Start: 1994 SIGMOIDOSCOPY SIGMOIDOSCOPY [facility] Start: 1989 Mammography [facility] Start: 1989 Screening for malign ant neoplasm of breast Mammogram Screening [facility] Start: 1968 Urine microalbumin profile DTAP,TDAP,TD (1 - Tdap) [facility] Start: 1967 Annual PCP Team Bar Host/Hostess sherrie Disease Visit Annual PCP Team Chronic Disease Visit [facility] Start: 1967 Anxiety Screening Anxiety Screening [facility] Start: 1967 BP Controlled (<130/80) BP Controlle d (<130/80) [facility] Start: 1967 Depression Screening Depression Scre ening [facility] Start: 1967 Hepatitis B surface antibody level LDL Cholesterol [facility] Start: 1967 HEPATITIS C SCREENING HEPATITIS C [facility] Start: 1967 Hepatitis C screening Hepatitis C [facility] Start: 1961 Adult depression screening assessment DEPRESSION SCREENING [facility] Start: 1954 COVID-19 VACCINE (#1) COVID-19 VACCI NE (#1) [facility] Cath plmt l hrt & ar ts w/njx & angio img s&i CORONARY ANGIO W CATH PLACE W IMAGE INJECT & INTERP W LT HEART CATH W INJECT LT VENTRGRAPHY Chest discomfort Abnormal stress test MR W[employer] WE[employer] WORKER ECG B/O W INTERP (ME D OFFICE) ECG B/O W INTERP (MED OFFICE) ECG Routine Coronary artery calcification seen on CT scan Dyspnea, unspecified type Primary hypertension Ordered: 06/25/2024 [facility] Work Phone: Comment on above: Ordered: 06/25/2024 MR Lumbar spine Yesica Comm [facility] End: 08-10-2023 PAP TITRATION PSG (CPAP, BIPAP, ASV) PAP TITRATION PSG (CPAP, BIPAP, ASV) Procedures Routine Obstructive sleep apnea 1 Occurrences starting 07/11/2022 until 08/10/2023 [facility] Work Phone: Comment on above: 1 Occurrences starti ng 07/11/2022 until 08/10/2023 [facility] MR HSIEH [facility] Immunizations Immunization Date Immunization Notes Care Provider Susanne boyce 05-27-2023 influenza virus vacc ine, unspecified formulation Mahamed Cardona MD Work Phone: [facility] 05-30-2021 influenza (aIIV4) vaccine, age 65+ yr, quadrivalent, PF (FLUAD QUADRIVALENT) Fatoumata Lyn DO Work Phone: [facility] 07-12-2020 zoster vaccine recombinant Fatoumata Lyn DO Work Phone: [facility] 05-09-2020 zoster vaccine recombinant Fatoumata Lyn DO Work Phone: [facility] 2019 influenza, high dose seasonal, preservative-free Fatoumata Lyn DO Work Phone: [facility] 06-17-2018 influenza, injectabl e, quadrivalent, contains preservative Fatoumata Lyn DO Work Phone: [facility] 06-25-2017 influenza, high dose seasonal, preservative-free Fatoumata Lyn DO Work Phone: [facility] 05-18-2016 influenza, high dose seasonal, preservative-free Fatoumata Lyn DO Work Phone: [facility] 05-18-2016 pneumococcal conjuga te vaccine, 13 valent Fatoumata Lyn DO Work Phone: [facility] 07-26-2015 influenza, high dose seasonal, preservative-free Fatoumata Lyn DO Work Phone: [facility] 08-08-2009 novel influenza-H1N1 -09, preservative-free, injectable Fatoumata Lyn DO Work Phone: [facility] Payers Date Payer Category Payer Self-pay 2015 Private Health Insurance HUMANA HUMANA MEDICARE SUPPLEMENT [id number] 2015-Present [phone] [address] [address] [place] [address] Indemnity [id number] 2015 Private Health Insurance HUMANA HUMANA MEDICARE SUPPLEMENT [id number] 2015-Present [phone] [address] [address] [place] [address] Indemnity [id number] 2015 Private Health Insurance [id number] 2014 Medicare MEDICARE MEDICAR E A AND B [id number] 2014-Present [phone] [place] [address] Medicare [id number] 2014 Medicare MEDICARE MEDICAR E A AND B [id number] 2014-Present [phone] [place] [address] Medicare [id number] 2014 Medicare [id number] 1950 Unknown [id number] 1950 Unknown [id number] .[id number] 1950 Unknown [id number] .[id number] 1950 Unknown [id number] .[id number] 1950 Unknown [id number] .[id number] 1949 Unknown [id number] .[id number] 1950 Unknown [id number] .[id number] 1949 Unknown [id number] .[id number] 1950 Unknown [id number] .[id number] 1950 Unknown [id number] .2.627 Medicare [id number] Unknown [id number] .[id number] Unknown [id number] .[id number] Unknown [id number] .[id number] Social History Date Type Detail Facility Tobacco smoking stat [facility] Tobacco smoking consumption unknown [facility] Start: 1950 Sex Assigned At Not on file [facility] Start: 09-12-2021 End: 02-25-2025 Never smoked tobacco (finding) [facility] Sex Assigned At [facility] Start: 02-15-2022 End: 09-20-2022 Tobacco use and exposure Smokeless tobacco non-user [facility] Start: 02-15-2022 End: 06-25-2024 Alcohol intake Ex-drinker (finding) [facility] Start: 02-05-2022 End: 06-29-2022 Exposure to SARS-CoV-2 (event) Not sure [facility] Start: 1950 Sex Assigned At Female [facility] Start: 01-07-2023 End: 02-13-2023 History of Social function [facility] Start: 01-07-2023 End: 02-13-2023 Tobacco use panel [facility] National Score (1-100), lower number is lower risk 86 [facility] Start: 03-09-2022 Gender identity Identifies as female gender (finding) [facility] Start: 03-09-2022 Sexual orientation Heterosexual (adilson ramírez) [facility] NEGATED: Highlighted rowStart: NINF History of tobacco use Passive smoker [facility] Medical Equipment Procedure Code Equipment Code Equipment Origin al Text Equipment Identifier Dates Catheter Ascenda 4fr .5mm Silicone 114cm 86cm Intrathecal 2 Piece Connector - [id number] Start: 09-28-2022 Pump Synchromed Ii Thk.78in C20ml Titanium .78in Intrathecal [place] - [id number] Start: 09-28-2022 Ptm [id number] Start: 09-28-2022 Goals Date Patient Goal Desired Activity /State Personal health goal Clinical Notes 12-12-2021 to 09-01-2024 Mahamed Cardona MD - 09/01/2024 3:03 PM ESTTelephone Encounter - Janet Wiley LPN - 08/31/2024 1:24 PM ESTTelephone Encounter - Janet Wiley LPN - 08/31/2024 1:24 PM EST Note Date & Type Note Facility 09-01-2024 Note HNO ID: [id number] Author: MAHAMED CARDONA MD Service: ? Author Type: Physician Type: Progress Notes Filed: 09/01/2024 15:11 Note Text: Summary: Abnormal stress Cardiolite with LAD ischemia, pt has atypical CP. For cath [facility] 09-01-2024 History of Presen t illness Narrative Summary: Abnormal stress Cardiolite with LAD ischemia, pt has atypical CP. For cath documented in this encounter [facility] 08-31-2024 Telephone encounter Note ----- Message from Mahamed Cardona MD sent at 08/20/2024 1:34 PM EST ----- Cardiolite mildly abnormal in Anterior distribution - ischemic. Sxs do not sound GI, but lots of risk factors. I suggest a cath, and will order if she agrees. [facility] 08-31-2024 Miscellaneous Notes ----- Message from Mahamed Cardona MD sent at 08/20/2024 1:34 PM EST ----- Cardiolite mildly abnormal in Anterior distribution - ischemic. Sxs do not sound GI, but lots of risk factors. I suggest a cath, and will order if she agrees. documented in this encounter [facility] 08-20-2024 Note HNO ID: [id number] Author: ERIKA MAKI RT(R) Service: ? Author [...] PATIENT PRESENTS WITH AN IMPLANTABLE OR ATTACHED MERCHANDISING SPECIALIST: No CREATININE: Creatinine Date Value Ref Range [...] POST EXAM PIV STATUS: Discontinued PROCEDURE TYPE: MI Stress: 16.1 mCi Gm04l-Kobslae was administered IV for [facility] [place] 0920 by [facility] 48.2 mCi Ke99c-Qptmmxd was administered IV for Stress Imaging at 1020 by [facility] ADMINISTRATION TIME: 1020 PATIENT DISCHARGED TO: Ambulatory patient, left MI department area. Is this a therapy: No A Diagnostic radioactive procedure has taken place, with no further precautions necessary other than routine body substance precautions. More information regarding radiation safety can be found using this link: [email or web address] [email or web address]-% 20Diagnostic%20Nuclear%20Medicine%2 0Procedures.pdf SIGNATURE: RT Harlan(R) PATIENT NAME: Emperatriz Ghosh DATE: August 20, 2024 TIME: 10:56 AM PAGER/CONTACT #: [facility] 08-20-2024 History of Presen t illness Narrative [...] PATIENT PRESENTS WITH AN IMPLANTABLE OR ATTACHED MERCHANDISING SPECIALIST: No CREATININE: Creatinine Date Value Ref Range [...] Discontinued PROCEDURE TYPE: NM Stress: 16.1 mCi Pj34d-Zatrkbc was administered IV for Rest Imaging at 0920 by s. 48.2 mCi Pk97b-Qmnyiiy was administered IV for Stress Imaging at 1020 by s. ADMINISTRATION TIME: 1020 PATIENT DISCHARGED TO: Ambulatory patient, left [place] department area. Is this a therapy: No A Diagnostic radioactive procedure has taken place, with no further precautions necessary other than routine body substance precautions. More information regarding radiation safety can be found using this link: [email or web address] [email or web address]-%20Diagnostic%20Nuclear%20 Medicine%20Procedures.pdf SIGNATURE: ANGELO Claros) PATIENT NAME: Emperatriz Ghosh DATE: August 20, 2024 TIME: 10:56 AM PAGER/CONTACT #: documented in this encounter [facility] 08-14-2024 Telephone encounter Note Spoke with patient on phone and gave stress test instructions including holding all products with caffeine/decaff 6pm night before with date time and location. Radha Mendoza [facility] 08-14-2024 Miscellaneous Notes Spoke with patient on phone and gave stress test instructions including holding all products with caffeine/decaff 6pm night before with date time and location. Radha Mendoza documented in this encounter [facility] 06-25-2024 Instructions Mahamed Cardona MD - 06/25/2024 8:51 AM EDT Same meds Discuss risk factor modification with Dr. Ann - weight management, exercise, BP, possible further pulmonary evaluation (Low O2 levels). May also need GI Dr. Nallely alvarado for GERD, possible esophageal stricture/spasm. Lexiscan Cardiolite documented in this encounter [facility] 06-25-2024 Note HNO ID: [id number] Author: MAHAMED CARDONA MD Service: ? Author Type: Physician Type: Progress Notes Filed: 06/25/2024 09:18 Note Text: [facility] [place] OUTPATIENT VISIT DATE June 25, 2024 OUTPATIENT VISIT TYPE New Cardiology Consult PRIMARY CARE PHYSICIAN: Luda Ann [address] [place] [address] HISTORY OF PRESENT ILLNESS: Emperatriz Ghosh is [...] Chest: Chest w (more content not included)... [facility] 06-25-2024 History of Presen t illness Narrative Images from the original note were not included. [facility] OUTPATIENT VISIT DATE June 25, 2024 OUTPATIENT VISIT TYPE New Cardiology Consult PRIMARY CARE PHYSICIAN: Luda Ann [address] [id number] HISTORY OF PRESENT ILLNESS: Emperatriz Ghosh is [...] Mahamed Cardona MD documented in this encounter [facility] 03-18-2024 Telephone encounter Note Scheduled and confirmed with patient Emily Dobbins [facility] 03-18-2024 Miscellaneous Notes Scheduled and confirmed with patient Emily Dobbins New Patient Referral Requesting- Dr. Dulce Ghosh : 1950 Reason- CAD Records Scanned In Summary: referral Received a referral from [facility] the office of Dr. Ann. Patient is referred for CAD. documented in this encounter [facility] 03-18-2024 Telephone encounter Note New Patient Referral Requesting- Dr. Dulce Ghosh : 1950 Reason- CAD Records Scanned In [facility] 03-12-2024 Telephone encounter Note Summary: referral Received a referral from [facility] the office of Dr. Ann. Patient is referred for CAD. [facility] 02-19-2024 Telephone encounter Note Noted and thank you. [facility] 02-19-2024 Miscellaneous Notes Noted and thank you. Please call the pt and get her an appt with Maynor in [place]. Thank you documented in this encounter [facility] 02-19-2024 Telephone encounter Note I called patient to get her an appointment scheduled with Maynor Robles at [place], patient stated she is no longer with us that she is seeing Dr Lopez in [place]. Kaylene Driver MA February 19, 2024 10:02 AM [facility] 02-19-2024 Miscellaneous Notes I called patient to get her an appointment scheduled with Maynor Robles at [place], patient stated she is no longer with us that she is seeing Dr Lopez in [place]. Kaylene Driver MA February 19, 2024 10:02 AM documented in this encounter [facility] 02-19-2024 Telephone encounter Note Please call the pt and get her an appt with Maynor in [place]. Thank you [facility] 02-13-2024 History of Presen t illness Narrative [...] PATIENT PRESENTS WITH AN IMPLANTABLE OR ATTACHED MERCHANDISING SPECIALIST: No RADIOLOGY DEPARTMENT: General X-ray: Exam(s) Completed: Spine X-Ray(s): Lumbar AP / LAT / L5-S1 / OBL / FLEX-EXT PERIPHERAL IV DATA: Not applicable SIGNED BY: RT Bianca(Katarzyna) February 13, 2024 12:53 PM documented in this encounter [facility] 02-13-2024 Note HNO ID: [id number] Author: PHANI HEARD RT(Katarzyna) Service: ? Author [...] PATIENT PRESENTS WITH AN IMPLANTABLE OR ATTACHED MERCHANDISING SPECIALIST: No RADIOLOGY DEPARTMENT: General X-ray: Exam(s) Completed: Spine X-Ray(s): Lumbar AP / LAT / L5-S1 / OBL / FLEX-EXT PERIPHERAL IV DATA: Not applicable SIGNED BY: RT Bianca(R) February 13, 2024 12:53 PM [facility] 01-22-2024 Telephone encounter Note Script faxed to [employer] with confirmation. Maura Jarvis RN January 22, 2024 12:04 PM [facility] 01-22-2024 Miscellaneous Notes Script faxed to [employer] with confirmation. Maura Jarvis RN January 22, [...] Panel: No results found for: UQCANN, UQBNZL, LCE6JMA, UQAMPH, UQMAMP, UQBUPRE, UQNORBUP, UQMTHD, UQEDDP, UQTRAM, UQDTRM, UQFNTL, UQNFTL, UQCODE, UQMORP, UQDCDN, UQHCOD, UQOXYC, UQHMOR, UQOXYM, UQCREA, UQPH, UQSPGR, UQOXID, UQSPQ @FLOW([id number])@ Lab Results Component Value Date SUMM FINAL 07/31/2023 No results found for: SUMMAR Last Opioid agreement effective date: 07/31/2023 Please review and advise. Yue Ramirez RN documented in this encounter [facility] 01-22-2024 Telephone encounter Note The following approved medication requests have been transmitted electronically. Requested Prescriptions Pending Prescriptions Disp Refills morphine (PF) 5 mg/mL in NaCl 0.9% 20 mL 20 mL 0 Sig: PF MORPHINE 5 MG/ML SIMPLE CONTINUOUS RATE 0.8636 mg/ day PTM 0.0799 mg every 4 hours (max 6 doses per day) Total daily dose 1.3397mg Maynor Robles PA-C [facility] 01-22-2024 Telephone encounter Note [employer] requesting refills [...] Panel: No results found for: UQCANN, UQBNZL, DBJ4BKZ, UQAMPH, UQMAMP, UQBUPRE, UQNORBUP, UQMTHD, UQEDDP, UQTRAM, UQDTRM, UQFNTL, UQNFTL, UQCODE, UQMORP, UQDCDN, UQHCOD, UQOXYC, UQHMOR, UQOXYM, UQCREA, UQPH, UQSPGR, UQOXID, UQSPQ @FLOW([id number])@ Lab Results Component Value Date SUMM FINAL 07/31/2023 No results found for: SUMMAR Last Opioid agreement effective date: 07/31/2023 Please review and advise. Yue Ramirez RN [facility] 12-31-2023 Telephone encounter Note LM for pt to return call to update us on new pain pump provider. Referral to Dr Chase was faxed 12/15. Maura Jarvis RN December 31, 2023 1:44 PM [facility] 12-31-2023 Miscellaneous Notes LM for pt to return call to update us on new pain pump provider. Referral to Dr Chase was faxed 12/15. Maura Jarvis RN December 31, 2023 1:44 PM documented in this encounter [facility] 12-23-2023 Note HNO ID: [id number] Author: LAURA SHAFFER PT DPFederico Service: ? [...] and Therapeutic activities. The patient met 6/6 custodial goals except manual muscle testing for left hip abduction. Addressed 12/23/2023 Goals for Episode of Care: created on 10/02/23 through 12/25/23 [place] in home exercise program. - Met Patient [...] Time : 1036 Laura Shaffer PT, DPT [facility] 12-23-2023 History of Presen t illness Narrative [...] and Therapeutic activities. The patient met 6/6 custodial goals except manual muscle testing for left hip abduction. Addressed 12/23/2023 Goals for Episode of Care: created on 10/02/23 through 12/25/23 [place] in home exercise program. - Met Patient [...] Shaffer PT, DPT documented in this encounter [facility] 12-18-2023 Note HNO ID: [id number] Author: DWAIN KOLB PTA Service: ? Author Type: Pallet Repairer Type: Progress Notes Filed: 12/18/2023 14:46 Note [...] included in billed treatment time. Dwain Kolb [facility] 12-18-2023 History of Presen t [...] Dwain Kolb PTA documented in this encounter [facility] 12-18-2023 Instructions Mayonr Robles PA-C - 12/18/2023 10:24 AM EDT [...] at this time. documented in this encounter [facility] 12-18-2023 Note HNO ID: [id number] Author: MAYNOR ROBLES PA-C Service: ? Author Type: Physician Construction Crew Member Type: Progress Notes Filed: 12/18/2023 10:40 Note Text: This note was created using [employer]. Subjective Emperatriz Ghosh is a 73 year [...] ICD9: V45.89, ICD10: Z96.89 Maynor Robles PA-C [facility] 12-18-2023 History of Presen t illness Narrative This note was created using [employer]. Subjective Emperatriz Ghosh is a 73 year [...] Maynor Robles PA-C documented in this encounter [facility] 12-16-2023 Telephone encounter Note Order is signed. [facility] 12-16-2023 Miscellaneous Notes Order is signed. Summary: IT pump referral I reached out to Dr Chase's office and was told that he is accepting new patients at this time. I called patient and she is willing to go see Dr Chase. Please send referral and we will follow up with patient. Maura Medrano documented in this encounter [facility] 12-16-2023 Telephone encounter Note Summary: IT pump referral I reached out to Dr Chase's office and was told that he is accepting new patients at this time. I called patient and she is willing to go see Dr Chase. Please send referral and we will follow up with patient. Maura Medrano [facility] 12-11-2023 Note HNO ID: [id number] Author: DWAIN KOLB PTA Service: ? Author Type: Pallet Repairer Type: Progress Notes Filed: 12/11/2023 12:07 Note [...] included in billed treatment time. Dwain Kolb [facility] 12-11-2023 History of Presen t illness Narrative [...] Dwain Kolb PTA documented in this encounter [facility] 12-09-2023 Miscellaneous Notes List of possible pain pump providers mailed to the patient. Maura Jarvis RN December 09, 2023 2:46 PM Summary: Pain pump patient Left message for pt to return call regarding finding a new pain pump provider. Maura Jarvis RN December 09, 2023 2:11 PM documented in this encounter [facility] 12-09-2023 Note HNO ID: [id number] Author: DWAIN KOLB PTA Service: ? Author Type: Pallet Repairer Type: Progress Notes Filed: 12/09/2023 11:59 Note [...] included in billed treatment time. Dwain Kolb [facility] [facility] 12-09-2023 History of Presen t illness Narrative [...] Dwain Kolb PTA documented in this encounter [facility] 12-04-2023 Note HNO ID: [id number] Author: DWAIN KOLB PTA Service: ? Author Type: Pallet Repairer Type: Progress Notes Filed: 12/04/2023 12:03 Note [...] included in billed treatment time. Dwain Kolb [facility] 12-04-2023 History of Presen t illness Narrative [...] Dwain Kolb PTA documented in this encounter [facility] 12-02-2023 Note HNO ID: [id number] Author: DWAIN KOLB PTA Service: ? Author Type: Pallet Repairer Type: Progress Notes Filed: 12/02/2023 12:26 Note [...] included in billed treatment time. Dwain Kolb [facility] 12-02-2023 History of Presen t illness Narrative [...] Dwain Kolb PTA documented in this encounter [facility] 11-27-2023 Note HNO ID: [id number] Author: LAURA SHAFFER PT, DPT Service: ? [...] of Care: created on 10/02/23 through 12/25/23 [place] in home exercise program. - Met Patient [...] Patient to be seen for Therapeutic exercise (38380), Neuromuscular re-education (56090), Manual therapy (00088), Therapeutic activities (44523), Self-mcfp management (36759), Gait Training (59020) PLAN FOR NEXT VISIT: Add hip abduction [...] services rendered a (more content not included)... [facility] 11-27-2023 History of Presen t illness Narrative [...] of Care: created on 10/02/23 through 12/25/23 [place] in home exercise program. - Met Patient [...] Patient to be seen for Therapeutic exercise (97037), Neuromuscular re-education (48707), Manual therapy (16469), Therapeutic activities (56266), Self-mcfp management (03851), Gait Training (25964) PLAN FOR NEXT VISIT: Add hip abduction [...] Shaffer PT, DPT documented in this encounter [facility] 11-25-2023 Note HNO ID: [id number] Author: DWAIN KOLB PTA Service: ? Author Type: Pallet Repairer Type: Progress Notes Filed: 11/25/2023 15:29 Note [...] included in billed treatment time. Dwain Kolb, [facility] 11-25-2023 History of Presen t illness Narrative [...] Dwain Kolb PTA documented in this encounter [facility] 11-25-2023 Miscellaneous Notes The following approved medication [...] Lydia Day RN documented in this encounter [facility] 11-21-2023 Note HNO ID: [id number] Author: MAYA GOEL PTA Service: ? Author Type: Pallet Repairer Type: Progress Notes Filed: 11/21/2023 15:03 Note [...] in billed treatment time. Maya Goel PTA [facility] 11-19-2023 Note HNO ID: [id number] Author: DWAIN KOLB PTA Service: ? Author Type: Pallet Repairer Type: Progress Notes Filed: 11/19/2023 16:14 Note Text: Episode Visit Count: 20 Therapist That Will Accept/Oversee The Plan Of Care: Lauar Shaffer, PT, DPT Start of Care Date: [...] included in billed treatment time. Dwain Kolb [facility] 11-19-2023 History of Presen t illness Narrative [...] Dwain Kolb PTA documented in this encounter [facility] 11-19-2023 Miscellaneous Notes The following approved medication [...] Panel: No results found for: UQCANN, UQBNZL, BST0JIA, UQAMPH, UQMAMP, UQBUPRE, UQNORBUP, UQMTHD, UQEDDP, UQTRAM, UQDTRM, UQFNTL, UQNFTL, UQCODE, UQMORP, UQDCDN, UQHCOD, UQOXYC, UQHMOR, UQOXYM, UQCREA, UQPH, UQSPGR, UQOXID, UQSPQ @FLOW([id number])@ Lab Results Component Value Date SUMM FINAL 07/31/2023 No results found for: SUMMAR Last Opioid agreement effective date: 07/31/2023 Please review and advise. Colleen Leong RN documented in this encounter [facility] 11-15-2023 Note HNO ID: [id number] Author: DWAIN KOLB PTA Service: ? Author Type: Pallet Repairer Type: Progress Notes Filed: 11/15/2023 12:36 Note [...] included in billed treatment time. Dwain Luajoshebenezer, [facility] 11-15-2023 History of Presen t illness Narrative [...] Dwain Kolb PTA documented in this encounter [facility] 11-13-2023 Note HNO ID: [id number] Author: LAURA SHAFFER PT, DPT Service: ? [...] Time : 1523 Laura Shaffer PT, ELLIOTTT [facility] 11-13-2023 History of Presen t illness Narrative [...] Shaffer PT, DPT documented in this encounter [facility] 11-11-2023 Note HNO ID: [id number] Author: LAURA SHAFFER PT, CARROLL Service: ? [...] Time : 1207 Laura Shaffer PT, DPT [facility] 11-11-2023 History of Presen t illness Narrative [...] Shaffer PT DPFederico documented in this encounter [facility] 11-06-2023 Miscellaneous Notes Addended by: LAURA SHAFFER on: 11/06/2023 01:29 PM Modules accepted: Orders documented in this encounter [facility] 11-06-2023 Note HNO ID: [id number] Author: LAURA SHAFFER PT, DPT Service: ? [...] was facilitated with verbal cueing. Manual Therapy (92123): 1:1 time: 5 minutes. Assessed lateral aspect [...] Time : 1215 Laura Shaffer PT, DPT [facility] 11-06-2023 History of Presen t illness Narrative [...] was facilitated with verbal cueing. Manual Therapy (90896): 1:1 time: 5 minutes. Assessed lateral aspect [...] Shaffer PT, DPT documented in this encounter [facility] 11-04-2023 Note HNO ID: [id number] Author: LAURA SHAFFER PT, DPT Service: ? [...] Time : 1211 Laura Shaffer PT, DPT [facility] 11-04-2023 History of Presen t illness Narrative [...] Shaffer PT, DPT documented in this encounter [facility] 11-01-2023 Note HNO ID: [id number] Author: DWAIN KOLB PTA Service: ? Author Type: Pallet Repairer Type: Progress Notes Filed: 11/01/2023 12:32 Note [...] included in billed treatment time. Dwain Kolb, [facility] 11-01-2023 History of Presen t illness Narrative [...] Dwain Kolb PTA documented in this encounter [facility] 10-30-2023 Note HNO ID: [id number] Author: LAURA SHAFFER PT, DPT Service: ? [...] of Care: created on 10/02/23 through 12/25/23 [place] in home exercise program. - Met Patient [...] Patient to be seen for Therapeutic exercise (92690), Neuromuscular re-education (35641), Manual therapy (93917), Therapeutic activities (60809), Self-mcfp management (63306), Gait Training (91481) PLAN FOR NEXT VISIT: * Add stepper [...] home program was (more content not included)... [facility] 10-30-2023 History of Presen t illness Narrative [...] of Care: created on 10/02/23 through 12/25/23 [place] in home exercise program. - Met Patient [...] Patient to be seen for Therapeutic exercise (77755), Neuromuscular re-education (03675), Manual therapy (34657), Therapeutic activities (85105), Self-mcfp management (88206), Gait Training (51692) PLAN FOR NEXT VISIT: * Add stepper [...] Shaffer PT, DPT documented in this encounter [facility] 10-28-2023 Note HNO ID: [id number] Author: DWAIN KOLB PTA Service: ? Author Type: Pallet Repairer Type: Progress Notes Filed: 10/28/2023 12:05 Note [...] included in billed treatment time. Dwain Kolb [facility] 10-28-2023 History of Presen t illness Narrative [...] Dwain Kolb PTA documented in this encounter [facility] 10-25-2023 History of Presen t illness Narrative Program_ID:[id number] Access Code: [email or web address] URL: [email or web address]/ Date: 10-25-2023 Prepared By: Laura Shaffer Program [...] steps x 3 laps 3: Access Code: [email or web address] URL: [email or web address]/ Date: 10/25/2023 Prepared by: DWAIN KOLB Exercises [...] Dwain Kolb PTA documented in this encounter [facility] 10-23-2023 History of Presen t illness Narrative [...] Dwain Kolb PTA documented in this encounter [facility] 10-18-2023 History of Presen t illness Narrative Program_ID:[id number] Access Code: [email or web address] URL: [email or web address]/ Date: 10-18-2023 Prepared By: Laura Shaffer Program [...] support 2 x 10 2: Access Code: [email or web address] URL: [email or web address]/ Date: 10/18/2023 Prepared by: DWAIN KOLB Exercises [...] Dwain Kolb PTA documented in this encounter [facility] 10-17-2023 Miscellaneous Notes Pt notified of the [...] 2023 11:14 AM documented in this encounter [facility] 10-16-2023 History of Presen t illness Narrative [...] Shaffer PT, DPT documented in this encounter [facility] 10-14-2023 History of Presen t illness Narrative Episode Visit Count: 6 Therapist That Will Accept/Oversee The Plan Of Care: Laura Shaffer PT DPT Start of Care Date: 10/02/23 Onset Date: 09/30/23 Plan of Care Certification Date: 10/02/23 Next Certification Due Date: 12/25/23 Patient Identified by Name and Date of : Yes [facility]AB[facility] SPORTS THERAPY PHYSICAL THERAPY TREATMENT NOTE ASSESSMENT: Empertariz Ghosh tolerated the session with expected muscle [...] Dwain Kolb PTA documented in this encounter [facility] 10-11-2023 History of Presen t illness Narrative [...] Maya Goel PTA documented in this encounter [facility] 10-09-2023 History of Presen t illness Narrative [...] Dwain Kolb PTA documented in this encounter [facility] 10-07-2023 History of Presen t illness Narrative [...] Shaffer PT, DPT documented in this encounter [facility] 10-03-2023 History of Presen t illness Narrative Program_ID:[id number] Access Code: [email or web address] URL: [email or web address]/ Date: 10-03-2023 Prepared By: Laura Shaffer Program Notes Exercises - Supine Short Arc [...] Home Exercise Program Assigned: 1: Access Code: [email or web address] URL: [email or web address] Date: 10/03/2023 Prepared by: MAYA GOEL Exercises [...] Maya Goel PTA documented in this encounter [facility] 10-02-2023 History of Presen t illness Narrative Program_ID:[id number] Access Code: [email or web address] URL: [email or web address] Date: 10-02-2023 Prepared By: Laura Shaffer Program [...] of Care: created on 10/02/23 through 12/25/23 [place] in home exercise program. Patient will decrease [...] Planned: 24 Planned Treatment Interventions: Therapeutic exercise (46304), Neuromuscular re-education (22501), Manual therapy (47826), Therapeutic activities (01560), Self-mcfp management (32110), Gait Training (99715) PLAN FOR NEXT VISIT: L TKA protocol [...] Shaffer PT, DPT documented in this encounter [facility] 09-26-2023 Miscellaneous Notes The following approved medication requests have been transmitted electronically. Requested Prescriptions Pending Prescriptions Disp Refills morphine (PF) 5 mg/mL in NaCl 0.9% 20 mL 20 mL 0 Sig: PF MORPHINE 5 MG/ML SIMPLE CONTINUOUS RATE 0.8636 mg/ day PTM 0.0799 mg every 4 hours (max 6 doses per day) Total daily dose 1.3397mg Maynor Robles PA-C [facility] request pump refill Rx: Requested Prescriptions Pending Prescriptions Disp Refills morphine (PF) 5 mg/mL in NaCl 0.9% 20 mL 20 mL 0 Sig: PF MORPHINE 5 MG/ML SIMPLE CONTINUOUS RATE 0.8636 mg/ day PTM 0.0799 mg every 4 hours (max 6 doses per day) Total daily dose 1.3397mg Lydia Day RN documented in this encounter [facility] 07-10-2023 Miscellaneous Notes Items addressed in this encounter: MyChart Encounter Pt has a follow up scheduled with Dr Andrews. Able to close encounter. Kaylene Driver MA July 10, 2023 10:17 AM 10:17 AM documented in this encounter [facility] 07-10-2023 Instructions Jaci Nixon APRN.DOOR FRAME BUILDER - 07/10/2023 9:45 AM EST The [facility] [...] refill Continue SI joint stabilizer belt from [facility] [place] and schedule LEFT SI JOINT INJECTION PRN-last done on 06/27/23-received 80% relief. Continue HEP Continue to follow-up with Dr. Soto (hip) prn Follow-up with Orthopedics for left carpal tunnel surgery 04/2023 Continue to follow-up with Director Corporate Compliance Previously discussed changing to Dilaudid and adding Marcaine if higher dose of Morphine not effective. AVOID NSAIDS and spicy foods Follow-up on 07/31/[address] Juliana Nixon APRN.DOOR FRAME BUILDER documented in this encounter [facility] 07-10-2023 History of Presen t illness Narrative This video visit was performed via PT PAL video visit. Patient consented to receive health care services via virtual visit for this encounter Provider Location: Non-[facility] Facility Patient Location: Patient Home or Place of Residence I have communicated my name and active licensure. The patient's identity and physical location were verified at the time of this visit. Either the patient or their legal floor representative has been informed of the risks and benefits of -- and alternatives to -- treatment through a remote evaluation and consents to proceed with the evaluation remotely. Chief Complaint: Pain History of Present Illness: Emperatriz Ghosh is a 73 year old year old female being seen at [facility] for a evaluation and/or management of their chronic pain. This patient has an office visit on 04/15/[address] Lyn. She is scheduled for a virtual visit today. On 06/27/23 she had a LEFT SI JOINT INJECTION and received 80% relief. She continues to f/u with the document control clerk due to SOB. She did state that [...] refill Continue SI joint stabilizer belt from [facility] PA and schedule LEFT SI JOINT INJECTION PRN-last done on 06/27/23-received 80% relief. Continue HEP Continue to follow-up with Dr. Soto (hip) prn Follow-up with Orthopedics for left carpal tunnel surgery 04/2023 Continue to follow-up with Director Corporate Compliance Previously discussed changing to Dilaudid and adding Marcaine if higher dose of Morphine not effective. AVOID NSAIDS and spicy foods Follow-up on 07/31/[address] Juliana Nixon APRN.DOOR FRAME BUILDER documented in this encounter [facility] 06-12-[address] Lyn, Please build a case for Emperatriz so she can be added to your Jun 27 schedule at 11:05. Leida Medrano June 12, 2023 1:57 PM documented in this encounter [facility] 06-05-2023 Note Exam Date Time Procedure Performing Provider Status 06/05/23 10:31 AM VL Venous US/Doppler One Leg (for DVT). Auth (Verified) [facility] 08-21-2023 Instructions* Patient Instructions* Fatoumata Lyn DO - 04/15/2023 3:35 PM EDT Encouraged to do HEP. Continue ITP: PF MORPHINE by SIMPLE CONTINUOUS RATE 0.864 mg/ day. PTM 0.0799 mg BID. MARIBEL: 05/2029 Discontinue Percocet 7.5/325 mg - not taking Continue Gabapentin 300 mg tablet TID managed by Dr. Luda Ann Continue using Lido-Prilo cream.-call for a refill Continue SI joint stabilizer belt from [facility]. Continue HEP. Continue to follow-up with Dr. Soto (hip) prn Follow-up with Orthopedics for left carpal tunnel surgery 04/2023. Use [place] from last CTS on the right. Continue to follow-up with Director Corporate Compliance appointment for further evaluation of SOB Previously discussed changing to Dilaudid and adding Marcaine if higher dose of Morphine not effective. Follow-up in 3 months with BLUNGER MACHINE OPERATOR AVOID NSAIDS and spicy foods [facility] History of Present illness Narrative* Fatoumata Lyn DO - 04/15/2023 3:15 PM EDTSummary: Pain Management follow-up DATE: April 15, 2023 Chief Complaint: LBP , thoracic pain, Si joint pain History of Present Illness: Emperatriz Ghosh is a 72 year [facility]/or [facility] their [...] refill Continue SI joint stabilizer belt from [facility]. Continue HEP. Continue to [...] She is not scheduled to see the document control clerk until . She is not takingthe Percocet. [...] encounter was entered by Anju Bradshaw medical office worker for Dr. Fatoumata Lyn on April 15, [...] Lyn. April 15, 2023. [facility] Miscellaneous Notes* Telephone Encounter - Colleen Leong RN - 03/27/2023 11:25 AM EDT Script faxed to [employer] with confirmation. Colleen Leong RN March 27, [...] advise. Colleen Leong RN [facility] Miscellaneous Notes* Telephone Encounter - Jaci Nixon [...] 21, 2023 2:41 PM [facility] Instructions* Patient Instructions* Jaci Nixon APRN.CNP - [...] refill Continue SI joint stabilizer belt from [facility]. Continue HEP. Continue to follow-up with Dr. Soto (hip) prn Follow-up with Orthopedics for b/l carpal tunnel syndrome surgical evaluation. Previously discussed changing to Dilaudid and adding Marcaine if Morphine is not effective F/u in 2 months-ok to schedule with Dr. Riki Nixon APRN.CNP documented [facility] History of Present illness Narrative* Jaci Nixon APRN.CNP - 02/13/2023 2:32 PM EDT This video visit was performed via PT PAL video visit. Patient consented to receive health care services via virtual visit for this encounter Provider Location: Non-[facility] Facility Patient Location: Patient Home or Place of Residence I have communicated my name and active licensure. The patient's identity and physical location wereverified at the time of this visit. Either the patient or their legal floor representative has been informed of the risks and benefits of -- and alternatives to -- treatment through a remote evaluation andconsents to proceed with the evaluation remotely. Chief Complaint: Pain History of Present Illness: Emperatriz Ghosh is a 72 year old year old female being seen at [facility] for a evaluation and/or [...] refill Continue SI joint stabilizer belt from [facility]. Continue HEP. Continue to follow-up with Dr. Soto (hip) prn Follow-up with Orthopedics for b/l carpal tunnel syndrome surgical evaluation. Previously discussed changing to Dilaudid and adding Marcaine if Morphine is not effective F/u in 2 months-ok to schedule with Dr. Riki Nixon APRN.DOOR FRAME BUILDER documented [facility] Miscellaneous Notes* Telephone Encounter - Colleen Leong RN - 01/28/2023 1:18 PM EDT Script faxed to [employer] with confirmation. Colleen Leong RN January 28, [...] provided. For clinical consultation, please call . @FLOW([id number])@ Lab Results Component Value Date SUMM FINAL 01/07/2023 No results found for: SUMMAR Please review and advise. Colleen Leong RN [facility] Miscellaneous Notes* Telephone Encounter - Rosa Villanueva [...] 24, 2023 11:00 AM documented in this [facility] Instructions* Patient Instructions* Fatoumata Lyn DO - [...] refill Continue SI joint stabilizer belt from [facility]. Continue HEP. Continue to follow-up with Dr. Soto (hip) prn Follow-up with Orthopedics for b/l carpal tunnel syndrome surgical evaluation. Follow-up in 4-6 weeks with BLUNGER MACHINE OPERATOR Order UDS Discussed changing to Dilaudid and adding Marcaine if Morphine is not effective. documented [facility] this [facility] History of Present illness Narrative* Fatoumata Lyn DO - 01/07/2023 11:00 AM EDTSummary: Pain Management follow-up DATE: January 07, 2023 Chief Complaint: Low back pain History of Present Illness: Emperatriz Ghosh is a 72 year old [facility]/or management of their [...] refill Continue SI joint stabilizer belt from [facility]. Continue HEP. Continue to [...] encounter was entered by Anju Bradshaw, medical office worker for Dr. Fatoumata Lyn on January 07, [...] Lyn. January 07, 2023. documented [facility] Miscellaneous Notes* Telephone Encounter - Camila Dubon RN - 12/04/2022 8:29 AM EDT Patient notified. Order faxed. Camila Dubon RN * Telephone Encounter - Camila Dubon RN - 12/03/2022 1:27 PM EDT Patient left a message requesting an increase of her ITP dosing during her upcoming refill on 12/05.Please advise. Camila Dubon RN documented [facility] this [facility] Miscellaneous Notes* Telephone Encounter - Fatoumata Lyn [...] provided. For clinical consultation, please call . @FLOW([id number])@ Lab Results Component Value Date SUMM FINAL 08/22/2022 No results found for: SUMMAR Please review and advise. Yue Ramirez RN documented in this encounter[facility] Miscellaneous Notes* Telephone Encounter - Fatoumata Lyn [...] advise. Yue Ramirez RN documented [facility] this [facility] Instructions* Patient Instructions* Fatoumata Lyn DO - [...] refill Continue SI joint stabilizer belt from [facility]. Continue HEP. Continue to follow-up with Dr. 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 documented in this encounter[facility] History of Present illness Narrative* Fatoumata Lyn DO - 10/29/2022 10:45 AM ESTSummary: Pain Management follow-up DATE: October 29, 2022 Chief Complaint: Low back pain History of Present Illness: Emperatriz Ghosh is a 72 year old [facility] and/or management of their [...] refill Continue SI joint stabilizer belt from [facility]. Continue HEP. Follow-up with Dr. Soto (hip) prn Do not wet surgical site. Continue with sponge baths until Saturday. Transition over to taking showers on Saturday. Referral to [facility] for ITP maintenance sent in [...] per day) Patient to establish care with [facility] nursing services cholecalciferol (VITAMIN D3) [...] report reviewed on October 29, 2022 by Anju Bradshaw andis consistent with the patients medical [...] Lyn. October 29, 2022. documented in this encounter[facility] Miscellaneous Notes* Telephone Encounter - Fatoumata Lyn DO - 10/21/2022 7:58 AM EST Ok. Thanks. * Telephone Encounter - Kimberlee Mendenhall RN - 10/19/2022 10:30 AM EST Amos from [employer] calling, states pt referral has been processed, she will be seen in the office for pump fills per her insurance. Kimberlee Mendenhall RN October 19, 2022 10:31 AM documented in this encounter[facility] Instructions* Patient Instructions* Fatoumata Lyn DO - [...] refill Continue SI joint stabilizer belt from [facility]. Continue HEP. Follow-up with Dr. Soto (hip) prn Do not wet surgical site. Continue with sponge baths until Saturday. Transition over to taking showers on Saturday. Referral to [employer] for ITP maintenance sent in today Discussed starting physical therapy in 4 to 6 weeks Follow-up in 4-[address] Lyn in the office documented [place] encounter[place] [id number] History of Present illness Narrative* Fatoumata Lyn, DO - 10/02/2022 2:15 PM ESTSummary: Pain Management f/up DATE: October 02, 2022 Chief Complaint: Back Pain History of Present Illness: Emperatriz Ghosh is a 72 year old female [facility] and/or management [...] refill Continue SI joint stabilizer belt from [facility]. Continue HEP. Follow-up with [...] seen back in the office or by [facility]. The patient denies any new [...] SIMPLE CONTINUOUS RATE 0.03 MG/HOUR SYNCHROMED II BookerTRONIC INTRATHECAL PUMP WITH PERSONAL COMPOUNDER FLAVORINGS cholecalciferol (VITAMIN D3) 5,000 unit tab Take [...] Lyn. October 02, 2022 documented in this encounter[facility] Miscellaneous Notes* Telephone Encounter - Fatoumata Lyn [...] tomorrow at 10 AM. She can contact [phone] if she needs to reschedule the surgery [...] 26, 2022 1:37 PM documented in this encounterSelect [facility]02-01-2023 Miscellaneous Notes* Telephone Encounter - Leesa Rodrigues RN - 09/26/2022 1:52 PM EST p documented in this encounterCleveland [id number] Instructions* Patient Instructions* Jaci Nixon APRN.CNP - 09/19/2022 3:06 PM EST The OARRS report has been reviewed and is consistent with the patient s medical history and medication intake. Encouraged to do HEP. Continue Percocet 7.5/325 mg TID PRN. Continue Gabapentin managed by Dr. Luda Ann Continue using Lido-Prilo cream.-call for a refill Continue SI joint stabilizer belt from [facility]. Continue HEP. Follow-up with Dr. Soto (hip) prn Scheduled for ITP on 09/28/22 Jaci Nixon APRN.CNP documented in this encounterSelect [facility]01-25-2023 History of Present illness Narrative* Jaci Nixon APRN.CNP - 09/19/2022 2:59 PM EST This video visit was performed via PT PAL video visit. Patient consented to receive health care services via virtual visit for this encounter Provider [facility] Patient Location: Patient Home or Place of Residence Risks, benefits, and limitations of receiving care virtually were discussed with the patient. The patient expressed understanding and is willing to proceed. Chief Complaint: Pain History of Present Illness: Emperatriz Ghosh is a 72 year old year old female being seen at [facility] for a evaluation and/or management of their chronic pain. This patient has an office visit on 04/16/[address] Lyn, virtual visit with ky on 08/16/22. She is scheduled for a [...] 1- 2 grams to affectedarea TID PRN lidocain-me.rybodvs-vflm-oocde 0.5-20-0.035-5 % ptmd EMLA CREAM PRILOCAINE 2%/LIDOCAINE [...] refill Continue SI joint stabilizer belt from [facility]. Continue HEP. Follow-up with Dr. Soto (hip) prn Scheduled for ITP on 09/28/22 Jaci Nixon APRN.SHANA documented in this encounterSelect [facility]12-29-2022 Miscellaneous Notes* Telephone Encounter - Jaci Nixon [...] pt for a UDS. documented in this [facility]12-12-2022 Miscellaneous Notes* Telephone Encounter - Fatoumata Lyn [...] advise. Yue Ramirez RN documented in this encounterSelect [facility]11-02-2022 Miscellaneous Notes* Telephone Encounter - Yue Ramirez [...] 27, 2022 3:05 PM documented in this encounterSelect [facility]10-26-2022 History of Present illness Narrative* Beth Abreu RRT - 06/20/2022 3:49 PM EDT Final pulmonary testing results faxed and confirmed to Dr Randi Ann at [phone] on 06/20/22. documented in this encounterSelect [facility]10-21-2022 History of Present illness Narrative* Beth Abreu RRT - 06/15/2022 10:25 AM EDT PULM FUNCTION SMARTBLOCK: Provider: Luda Ann DO Assisting Tech: Beth Abreu RRT Spirometry w/BD: 1 DLCO: 1 LV - Box: 1 MVV: 1 documented in this encounterSelect Medical [facility]10-19-2022 Miscellaneous Notes* Telephone Encounter - Fatoumata Lyn [...] [facility] This was unable to be filled how the RX was written because it was a compound medication. New rx requested. Yue Ramirez RN June 13, 2022 10:34 AM documented in this encounterSelect Medical [facility]10-18-2022 Miscellaneous Notes* Telephone Encounter - Fatoumata Lyn DO - 06/12/2022 7:00 AM EDT The following approved medication requests have been transmitted electronically. Requested Prescriptions Pending Prescriptions Disp Refills oxyCODONE-acetaminophen (PERCOCET) 7.5-325 mg tablet 90 tablet 0 Sig: Take 1 tablet by mouth three times daily as needed for up to 30 days. lidocain-me.gnaibkg-ooqw-wetmb 0.5-20-0.035-5 % ptmd 7 Patch 1 Sig: EMLA CREAM PRILOCAINE 2%/LIDOCAINE 2% Fatoumata Lyn DO * Telephone Encounter - Colleen Leong RN - 06/11/2022 1:02 PM EDT Pt requesting refill as follows Requested Prescriptions Pending Prescriptions Disp Refills oxyCODONE-acetaminophen (PERCOCET) 7.5-325 mg tablet 90 tablet 0 Sig: Take 1 tablet by mouth three times daily as needed for up to 30 days. lidocain-me.hevheba-ennn-ouyps 0.5-20-0.035-5 % ptmd 7 Patch 1 Sig: EMLA CREAM PRILOCAINE 2%/LIDOCAINE 2% Please review and advise. Colleen Leong RN documented in this encounterSelect Medical [facility]09-09-2022 Miscellaneous Notes* Telephone Encounter - Fatoumata Lyn DO - 05/04/2022 12:19 PM EDT The following approved medication requests have been transmitted electronically. Requested Prescriptions Pending Prescriptions Disp Refills oxyCODONE-acetaminophen (PERCOCET) 7.5-325 mg tablet 90 tablet 0 Sig: Take 1 tablet by mouth three times daily as needed for up to 30 days. Fatoumata Lyn [...] advise. Yue Ramirez RN documented in this encounterSelect Medical Specialty [facility] [place]08-22-2022 Instructions* Patient Instructions* Fatoumata Lyn DO - 04/16/2022 10:23 AM EDT 1) The OARRS report has been reviewed and is consistent with the patient s medical history and medication intake. 2) Encouraged to do HEP. 3) Continue Percocet 7.5/325 mg TID PRN. 4) Continue Gabapentin managed by Dr. Luda Ann 5) Continue using Lido-Prilo cream. 6) Continue SI joint stabilizer belt from [facility]. 7) Continue HEP. 8) Follow-up with Dr. Soto (hip) prn 9) Schedule ITP trial with Morphine x 3 days in hospital. documented in this encounterSelect Medical [facility]08-22-2022 History of Present illness Narrative* Fatoumata Lyn DO - 04/16/2022 10:18 AM EDTSummary: Pain management office follow-up visit DATE: April 16, 2022 Chief Complaint: Back and mid-back History of Present Illness: Emperatriz Ghosh is a 71 year old female [facility] for a [facility] and/or management [...] 6) Continue SI joint stabilizer belt from [facility]. 7) Continue HEP. 8) [...] PLUS ORAL) SENIOR MULTIVITAMIN PLUS ORAL TABLET lidocain-me.iqngwpw-kith-ixpqd 0.5-20-0.035-5 % ptmd EMLA CREAM PRILOCAINE 2%/LIDOCAINE [...] discontinued. Fatoumata Lyn DO documented in this encounterSelect Medical [facility]07-19-2022 Instructions* Patient Instructions* Jaci Nixon APRN.DOOR FRAME BUILDER - 03/13/2022 9:41 AM EDT The OARRS report has been reviewed and is consistent with the patient s medical history and medication intake. Encouraged to do HEP. Continue Percocet 7.5/325 mg TID Continue Gabapentin managed by Dr. Luda Ann Continue using Lido-Prilo cream. Continue SI joint stabilizer belt from [facility]. Continue HEP. Follow-up with Dr. Soto (hip) prn F/u in 1 month -Please schedule the next appointment in PT PAL or call [phone] Option 1. documented in this encounterSelect [facility]07-19-2022 History of Present illness Narrative* Jaci Nixon APRN.CNP - 03/13/2022 9:40 AM EDTSummary: F/u DATE: March 13, 2022 This video visit was performed via PT PAL video visit. Patient consented to receive health care services via virtual visit for this encounter Provider Location[facility] Patient Location: Patient Home or Place of Residence Risks, benefits, and limitations of receiving care virtually were discussed with the patient. The patient expressed understanding and is willing to proceed. Chief Complaint: Pain History of Present Illness: Emperatriz Ghosh is a 71 year old year old female being seen at [facility] for a evaluation and/or [...] mg EC tablet ASPIR-81 TABLET DELAYED RELEASE Zm-P4-dnt-qqwj-bct-kybu-boron (CALTRATE 600-D PLUS MINERALS) 600 mg calcium- 800 unit-40 mg chew CALTRATE 600+D CHEW multivit with minerals/lutein (MULTIVITAMIN 50 PLUS ORAL) SENIOR MULTIVITAMIN PLUS ORAL TABLET lidocain-me.pvthfry-udje-shvoj 0.5-20-0.035-5 % ptmd EMLA CREAM PRILOCAINE 2%/LIDOCAINE [...] cream. Continue SI joint stabilizer belt from [facility]. Continue HEP. Follow-up with Dr. Soto (hip) prn F/u in 1 month -[facility] the [facility] or call [phone] Option 1. Jaci Nixon APRN.CNP documented in this encounterSelect Medical [facility]06-30-2022 Miscellaneous Notes* Telephone Encounter - Yaneli Cat RN - 02/22/2022 5:08 PM EDT Patient phones requesting refills as follows: Pending Prescriptions Disp Refills OXYCODONE-ACETAMINOPHEN 7.5 MG-325 MG TABLET 90 tablet 0 Sig: Take 1 tablet by mouth three times daily as needed. ANN Class: C-II TELLY: No Please review and advise. Yaneli Cat RN documented in this encounterSelect Medical Specialty [facility]06-23-2022 Instructions* Patient Instructions* Fatoumata Lyn DO - 02/15/2022 11:23 AM EDT 1) The OARRS report has been reviewed and is consistent with the patient s medical history and medication intake. 2) Encouraged to do HEP. 3) Continue Percocet 7.5/325 mg TID PRN. .4) Continue Gabapentin managed by Dr. Luda Ann 5) Continue using Lido-Prilo cream. 6) Continue SI joint stabilizer belt from [facility]. 7) Continue HEP. 8) Follow-up with Dr. Soto (hip) prn 9) F/U with JANEY Gold on 03/13/22 via virtual visit. documented in this encounterSelect Medical [facility]ty [facility]06-23-2022 History of Present illness Narrative* Fatoumata Lyn DO - 02/15/2022 10:41 AM EDT DATE: February 15, 2022 Chief Complaint: Lower back and mid back History of Present Illness: Emperatriz Ghosh is a 71 year old year old female being seen at [facility] for a evaluation and/or [...] She got the SIJ stabilizer belt from [facility] as per our order [...] 6) Continue SI joint stabilizer belt from [facility]. 7) Continue HEP. 8) [...] continued. Fatoumata Lyn DO documented in this encounterSelect Medical [facility]ty [facility]05-20-2022 NotePhysical Therapy Outpatient Progress Summary Medical Diagnosis: [...] SIDE OF HER BACK HAS FELT BETTER [facility] PATIENT NAME: EMPERATRIZ GHOSH [address] [facility] [address] MEDICAL REC #: [id number] [place] [address] ADMIT DATE: SERVICE DATE: 01/12/22 Physical Therapy [...] HIP Flexors 4-4+/5 4-4+/5 Abductors 4-4+/5 4-4+/5 [facility] PATIENT NAME: EMPERATRIZ GHOSH R [address] [facility] [address] MEDICAL REC #: [id number] [place] [address] ADMIT DATE: SERVICE DATE: 01/12/22 Physical Therapy [...] MID LATERAL L GL (more content not included)...[facility]04-19-2022 NotePhysical Therapy Outpatient Evaluation Medical Diagnosis: LEG [...] Demographics: Age: 71Y Gender: Female Primary Language: Mexican Preferred Language: Mexican Initial Evaluation Date: 12/12/2021 Referring Clinician: Dr. Fatoumata Lyn Referring Service/Team: Pain Management Concurrent Services: None. Screening for COVID-19 Does the patient/client present any of the following symptoms? Response Symptoms Cough No [facility] PATIENT NAME: EMPERATRIZ GHOSH [address] [facility] [address] MEDICAL REC #: [id number] [place] [address] ADMIT DATE: SERVICE DATE: 12/12/21 Physical Therapy [...] Lidocaine-Prilocaine cream Allergies: Significant rehabilitation considerations: NKA [facility] PATIENT NAME: EMPERATRIZ GHOSH [address] [facility] [address] MEDICAL REC #: [id number] [place] [address] ADMIT DATE: SERVICE DATE: 12/12/21 Physical Therapy Evaluation ATTENDING AZALIA: Fatoumata Lyn DO Rehabilitation Precautions/Restrictions: General Spine Precautions SUBJECTIVE Premorbid Functional Level: The patient reported the premorbid leve (more content not included)...[facility] No data available for this section [facility] Evaluation + Plan note Future Appointments Appointment Date:07/25/2023 10:00:00 AM Scheduled Provider: Location:[facility] Appointment Type:CT Chest w/o Contrast Future Scheduled Tests Radiology* CT Thorax w/o Contrast 07/25/23 [facility] Evaluation note* Diagnosis Intervertebral disc disorder with radiculopathy of lumbar region Thoracic or lumbosacral neuritis or radiculitis, unspecified DDD (degenerative disc disease), lumbar Degeneration of lumbar or lumbosacral intervertebral disc documented in this encounter [facility] [place] [facility]* Diagnosis Chronic pain syndrome- Primary documented in this encounter [facility] [place] [facility]* Diagnosis Chronic pain syndrome- Primary Myalgia Mylagia and myositis, unspecified Acute arthropathy Arthropathy, unspecified, site unspecified Radiculitis, thoracic Thoracic or lumbosacral neuritis or radiculitis, unspecified documented in this encounter [facility]* Diagnosis Chronic pain syndrome- Primary Lumbar radiculopathy Thoracic or lumbosacral neuritis or radiculitis, unspecified DDD (degenerative disc disease), lumbar Degeneration of lumbar or lumbosacral intervertebral disc documented in this encounter [facility]* Diagnosis Chronic pain syndrome [facility] syndrome [facility] Diagnosis Dyspnea on exertion Other dyspnea and respiratory abnormality documented in this encounter [facility]* Diagnosis Dyspnea on exertion Other dyspnea and respiratory abnormality documented in this encounter [facility]* Diagnosis Lumbar postlaminectomy syndrome- Primary Postlaminectomy syndrome, lumbar region documented in this encounter [facility] [place] [facility]* Diagnosis Obstructive sleep apnea- Primary Obstructive sleep apnea (adult) (pediatric) Lumbar postlaminectomy syndrome Postlaminectomy syndrome, lumbar region documented in this encounter [facility] note* Diagnosis Chronic pain syndrome Lumbar postlaminectomy syndrome Postlaminectomy syndrome, lumbar region documented in this encounter [facility] note* Diagnosis High risk medication use- Primary Encounter for long-term (current) use of other medications Lumbar postlaminectomy syndrome Postlaminectomy syndrome, lumbar region documented in this encounter [facility] note* Diagnosis Lumbar postlaminectomy syndrome- Primary [...] syndrome, lumbar region documented in this encounter [facility] note* Diagnosis Lumbar postlaminectomy syndrome [M96.1 [...] infusion pump present documented in this encounter [facility] note* Diagnosis Lumbar postlaminectomy syndrome Postlaminectomy syndrome, lumbar region [facility] [place] [facility]* Diagnosis Lumbar postlaminectomy syndrome- Primary Postlaminectomy [...] Chronic pain syndrome documented in this encounter [facility] [place] [facility]* Diagnosis Lumbar postlaminectomy syndrome Postlaminectomy syndrome, [...] or radiculitis, unspecified documented in this encounter [facility] [place] [facility]* Diagnosis Lumbar postlaminectomy syndrome Postlaminectomy syndrome, lumbar region [facility] [place] [facility]* Diagnosis Lumbar postlaminectomy syndrome- Primary Postlaminectomy [...] (HCC) Morbid obesity documented in this encounter [facility] note* Diagnosis Lumbar postlaminectomy syndrome Postlaminectomy syndrome, lumbar region documented in this encounter [facility] note* Diagnosis Lumbar postlaminectomy syndrome- Primary [...] and myositis, unspecified documented in this encounter [facility] note* Diagnosis Lumbar postlaminectomy syndrome Postlaminectomy syndrome, lumbar region documented [facility] [place] [facility]* Diagnosis Lumbar postlaminectomy syndrome- Primary Postlaminectomy [...] and myositis, unspecified documented in this encounter [facility] note* Diagnosis Lumbar postlaminectomy syndrome- Primary [...] or radiculitis, unspecified documented in this encounter [facility] note* Diagnosis Decreased range of motion [...] and myositis, unspecified [facility] [place] [facility]* Diagnosis Lumbar postlaminectomy syndrome- Primary Postlaminectomy syndrome, lumbar region Lumbar spondylosis Lumbosacral spondylosis without myelopathy Sacroiliitis (HCC) Sacroiliitis, not elsewhere classified Lumbar radiculopathy Thoracic or lumbosacral neuritis or radiculitis, unspecified Radiculitis, thoracic Thoracic or lumbosacral neuritis or radiculitis, unspecified Myofascial pain syndrome Mylagia and myositis, unspecified Carpal tunnel syndrome, bilateral Carpal tunnel syndrome Implantable intrathecal infusion pump present [facility] this [facility] [place] [facility]* Diagnosis Decreased range of motion of left knee- Primary Presence of left artificial knee joint Knee joint replacement by other means Weakness Other malaise and fatigue documented [facility] [place] [facility]* Diagnosis Decreased range of motion of left knee- Primary Presence of left artificial knee joint Knee joint replacement by other means Weakness Other malaise and fatigue documented [facility] [place] [facility]* Diagnosis Lumbar postlaminectomy syndrome Postlaminectomy syndrome, lumbar region documented in this encounter [facility] note* Diagnosis Coronary artery calcification seen on CT scan- Primary Dyspnea, unspecified type Hypercholesterolemia Pure hypercholesterolemia Primary hypertension Unspecified essential hypertension BMI 40.0-44.9, adult ([facility]) Body Mass Index 40.0-44.9, adult Encounter for screening for cardiovascular disorders Screening for other and unspecified cardiovascular conditions documented in this encounter [facility] note* Diagnosis Hypercholesterolemia- Primary Pure hypercholesterolemia Coronary artery disease involving kashia coronary artery of kashia heart without angina pectoris Chest discomfort Other chest pain Abnormal stress test Other nonspecific abnormal cardiovascular system function study documented in this encounter [facility] note* Diagnosis Coronary artery calcification seen on CT scan Dyspnea, unspecified type Chest discomfort Other chest pain Abnormal stress test Other nonspecific abnormal cardiovascular system function study documented in this encounter [facility] noteNo assessment information availableSan Francisco Marine Hospital Work Phone: Hospital Discharge instructions No data available for this section [facility] Progress note No data available for this section [facility] Reason for referral (narrative)* Diagnostic Procedure Only (Routine) - Authorized Specialty Diagnoses / Procedures Referred By Contac t Referred To Contact MOLECULAR & FUNCTIONAL IMAGING Diagnoses Coronary artery calcification seen on CT scan Dyspnea, unspecified type Encounter for screening for cardiovascular disorders Procedures NM CARDIAC PERF STRESS/PHARM MYOCARDIAL SPECT MULTIPLE STUDIES Mahamed Cardona MD [address] [facility] [address] [place] [address] Molecular & Functional Imaging [address] [place] [address] Referral ID Status Reason Start Date Expiration Date Visits Requested Visits Authorized [id number] Authorized Auto-Generat ed Referral 07/25/2025 1 1 [facility] (narrative)No reason for referral information availableSan Francisco Marine Hospital Work Phone: Reason for visit Narrative* Diagnostic Procedure Only (Routine) - Closed Specialty Diagnoses / Procedures Referred By Contac t Referred To Contact MOLECULAR & FUNCTIONAL IMAGING Diagnoses Coronary artery calcification seen on CT scan Dyspnea, unspecified type Encounter for screening for cardiovascular disorders Procedures NM CARDIAC PERF STRESS/PHARM MYOCARDIAL SPECT MULTIPLE STUDIES Mahamed Carodna MD [address] [facility] [address] [place] [address] Molecular & Functional Imaging [address] [place] [address] Referral ID Status Reason Start Date Expiration Date V isits Requested Visits Authorized [id number] Closed Auto-Generate d Referral 07/25/2024 07/25/2025 2 2 [facility] Summary Purpose Family History No Family History Records FoundNo Family History Records Found No data available for this section No Family History Records FoundNo Family History Records FoundNo Family History Records FoundNo Family History Records Found Advance Directives No Advanced Directives Records FoundDocuments on File Type Date Recorded 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 Analyst Expl anation Advance Directive(s) 02/09/2022 10:16 AM [...] MINS Fatoumata Lyn, DO [address] [place] [address] [facility] [address] [address] Referral ID Status Reason Start Date Expiration Date Visits Requested Visits Authorized [id number] Authorized PCP Requested Referral Auto-Generate d Referral 10/29/2022 10/29/2023 99 99 Chief Complaint and Reason for Visit Chief Complaint Admit Date LUMBAR SPINE February 25, 2025 2:43p m room 2 February 25, 2025 3:01p m Additional Source Comments INFORMATION SOURCE (unrecogn ized section and content) DATE CREATED AUTHOR 10/29/2020 [facility] DATE CREATED AUTHOR AUTHOR'S ORGANIZ ATION 03/15/2022 [facility] [place] DATE CREATED AUTHOR AUTHOR'S ORGANIZ ATION 02/06/2024 [facility] ([place]) DATE CREATED AUTHOR AUTHOR'S ORGANIZ ATION 06/21/2024 [facility] DATE CREATED AUTHOR AUTHOR'S ORGANIZ ATION 10/25/2024 [facility] DATE CREATED AUTHOR AUTHOR'S ORGANIZ ATION 03/28/2025 [facility] Source Comments (unrecognize d section and content) In the event this informatio n is protected by the Federal Confidentiality of Alcohol and Drug Abuse Patient Records regulations: The Federal rules restrict any use of the information to criminally investigate or prosecute any alcohol or drug abuse patient.[facility]onIn the event this information is protected by the Federal Confidentiality of Alcohol and Drug Abuse Patient Records regulations: The Federal rules restrict any use of the information to criminally investigate or prosecute any alcohol or drug abuse patient.[facility]onIn the event this information is protected by the Federal Confidentiality of Alcohol and Drug Abuse Patient Records regulations: The Federal rules restrict any use of the information to criminally investigate or prosecute any alcohol or drug abuse patient.[facility]onIn the event this information is protected by the Federal Confidentiality of Alcohol and Drug Abuse Patient Records regulations: The Federal rules restrict any use of the information to criminally investigate or prosecute any alcohol or drug abuse patient.[facility]onIn the event this information is protected by the Federal Confidentiality of Alcohol and Drug Abuse Patient Records regulations: The Federal rules restrict any use of the information to criminally investigate or prosecute any alcohol or drug abuse patient.[facility]onIn the event this information is protected by the Federal Confidentiality of Alcohol and Drug Abuse Patient Records regulations: The Federal rules restrict any use of the information to criminally investigate or prosecute any alcohol or drug abuse patient.[facility]onIn the event this information is protected by the Federal Confidentiality of Alcohol and Drug Abuse Patient Records regulations: The Federal rules restrict any use of the information to criminally investigate or prosecute any alcohol or drug abuse patient.[facility]onIn the event this information is protected by the Federal Confidentiality of Alcohol and Drug Abuse Patient Records regulations: The Federal rules restrict any use of the information to criminally investigate or prosecute any alcohol or drug abuse patient.[facility]onIn the event this information is protected by the Federal Confidentiality of Alcohol and Drug Abuse Patient Records regulations: The Federal rules restrict any use of the information to criminally investigate or prosecute any alcohol or drug abuse patient.[facility]onIn the event this information is protected by the Federal Confidentiality of Alcohol and Drug Abuse Patient Records regulations: The Federal rules restrict any use of the information to criminally investigate or prosecute any alcohol or drug abuse patient.[facility]onIn the event this information is protected by the Federal Confidentiality of Alcohol and Drug Abuse Patient Records regulations: The Federal rules restrict any use of the information to criminally investigate or prosecute any alcohol or drug abuse patient.[facility]onIn the event this information is protected by the Federal Confidentiality of Alcohol and Drug Abuse Patient Records regulations: The Federal rules restrict any use of the information to criminally investigate or prosecute any alcohol or drug abuse patient.[facility]onIn the event this information is protected by the Federal Confidentiality of Alcohol and Drug Abuse Patient Records regulations: The Federal rules restrict any use of the information to criminally investigate or prosecute any alcohol or drug abuse patient.[facility]onIn the event this information is protected by the Federal Confidentiality of Alcohol and Drug Abuse Patient Records regulations: The Federal rules restrict any use of the information to criminally investigate or prosecute any alcohol or drug abuse patient.[facility]onIn the event this information is protected by the Federal Confidentiality of Alcohol and Drug Abuse Patient Records regulations: The Federal rules restrict any use of the information to criminally investigate or prosecute any alcohol or drug abuse patient.[facility]onIn the event this information is protected by the Federal Confidentiality of Alcohol and Drug Abuse Patient Records regulations: The Federal rules restrict any use of the information to criminally investigate or prosecute any alcohol or drug abuse patient.[facility]onIn the event this information is protected by the Federal Confidentiality of Alcohol and Drug Abuse Patient Records regulations: The Federal rules restrict any use of the information to criminally investigate or prosecute any alcohol or drug abuse patient.[facility]onIn the event this information is protected by the Federal Confidentiality of Alcohol and Drug Abuse Patient Records regulations: The Federal rules restrict any use of the information to criminally investigate or prosecute any alcohol or drug abuse patient.[facility]onIn the event this information is protected by the Federal Confidentiality of Alcohol and Drug Abuse Patient Records regulations: The Federal rules restrict any use of the information to criminally investigate or prosecute any alcohol or drug abuse patient.[facility]onIn the event this information is protected by the Federal Confidentiality of Alcohol and Drug Abuse Patient Records regulations: The Federal rules restrict any use of the information to criminally investigate or prosecute any alcohol or drug abuse patient.[facility]onIn the event this information is protected by the Federal Confidentiality of Alcohol and Drug Abuse Patient Records regulations: The Federal rules restrict any use of the information to criminally investigate or prosecute any alcohol or drug abuse patient.[facility]onIn the event this information is protected by the Federal Confidentiality of Alcohol and Drug Abuse Patient Records regulations: The Federal rules restrict any use of the information to criminally investigate or prosecute any alcohol or drug abuse patient.[facility]onIn the event this information is protected by the Federal Confidentiality of Alcohol and Drug Abuse Patient Records regulations: The Federal rules restrict any use of the information to criminally investigate or prosecute any alcohol or drug abuse patient.[facility]onIn the event this information is protected by the Federal Confidentiality of Alcohol and Drug Abuse Patient Records regulations: The Federal rules restrict any use of the information to criminally investigate or prosecute any alcohol or drug abuse patient.[facility]onIn the event this information is protected by the Federal Confidentiality of Alcohol and Drug Abuse Patient Records regulations: The Federal rules restrict any use of the information to criminally investigate or prosecute any alcohol or drug abuse patient.[facility]onIn the event this information is protected by the Federal Confidentiality of Alcohol and Drug Abuse Patient Records regulations: The Federal rules restrict any use of the information to criminally investigate or prosecute any alcohol or drug abuse patient.[facility]onIn the event this information is protected by the Federal Confidentiality of Alcohol and Drug Abuse Patient Records regulations: The Federal rules restrict any use of the information to criminally investigate or prosecute any alcohol or drug abuse patient.[facility]onIn the event this information is protected by the Federal Confidentiality of Alcohol and Drug Abuse Patient Records regulations: The Federal rules restrict any use of the information to criminally investigate or prosecute any alcohol or drug abuse patient.[facility]onIn the event this information is protected by the Federal Confidentiality of Alcohol and Drug Abuse Patient Records regulations: The Federal rules restrict any use of the information to criminally investigate or prosecute any alcohol or drug abuse patient.[facility]onIn the event this information is protected by the Federal Confidentiality of Alcohol and Drug Abuse Patient Records regulations: The Federal rules restrict any use of the information to criminally investigate or prosecute any alcohol or drug abuse patient.[facility]onIn the event this information is protected by the Federal Confidentiality of Alcohol and Drug Abuse Patient Records regulations: The Federal rules restrict any use of the information to criminally investigate or prosecute any alcohol or drug abuse patient.[facility]onIn the event this information is protected by the Federal Confidentiality of Alcohol and Drug Abuse Patient Records regulations: The Federal rules restrict any use of the information to criminally investigate or prosecute any alcohol or drug abuse patient.[facility]onIn the event this information is protected by the Federal Confidentiality of Alcohol and Drug Abuse Patient Records regulations: The Federal rules restrict any use of the information to criminally investigate or prosecute any alcohol or drug abuse patient.[facility]onIn the event this information is protected by the Federal Confidentiality of Alcohol and Drug Abuse Patient Records regulations: The Federal rules restrict any use of the information to criminally investigate or prosecute any alcohol or drug abuse patient.[facility]onIn the event this information is protected by the Federal Confidentiality of Alcohol and Drug Abuse Patient Records regulations: The Federal rules restrict any use of the information to criminally investigate or prosecute any alcohol or drug abuse patient.[facility]onIn the event this information is protected by the Federal Confidentiality of Alcohol and Drug Abuse Patient Records regulations: The Federal rules restrict any use of the information to criminally investigate or prosecute any alcohol or drug abuse patient.[facility] [place]onIn the event this information is protected by the Federal Confidentiality of Alcohol and Drug Abuse Patient Records regulations: The Federal rules restrict any use of the information to criminally investigate or prosecute any alcohol or drug abuse patient.[facility] [place]onIn the event this information is protected by the Federal Confidentiality of Alcohol and Drug Abuse Patient Records regulations: The Federal rules restrict any use of the information to criminally investigate or prosecute any alcohol or drug abuse patient.[facility] [place]onIn the event this information is protected by the Federal Confidentiality of Alcohol and Drug Abuse Patient Records regulations: The Federal rules restrict any use of the information to criminally investigate or prosecute any alcohol or drug abuse patient.[facility] [place]onIn the event this information is protected by the Federal Confidentiality of Alcohol and Drug Abuse Patient Records regulations: The Federal rules restrict any use of the information to criminally investigate or prosecute any alcohol or drug abuse patient.[facility]onIn the event this information is protected by the Federal Confidentiality of Alcohol and Drug Abuse Patient Records regulations: The Federal rules restrict any use of the information to criminally investigate or prosecute any alcohol or drug abuse patient.[facility]onIn the event this information is protected by the Federal Confidentiality of Alcohol and Drug Abuse Patient Records regulations: The Federal rules restrict any use of the information to criminally investigate or prosecute any alcohol or drug abuse patient.[facility]onIn the event this information is protected by the Federal Confidentiality of Alcohol and Drug Abuse Patient Records regulations: The Federal rules restrict any use of the information to criminally investigate or prosecute any alcohol or drug abuse patient.[facility]onIn the event this information is protected by the Federal Confidentiality of Alcohol and Drug Abuse Patient Records regulations: The Federal rules restrict any use of the information to criminally investigate or prosecute any alcohol or drug abuse patient.[facility]onIn the event this information is protected by the Federal Confidentiality of Alcohol and Drug Abuse Patient Records regulations: The Federal rules restrict any use of the information to criminally investigate or prosecute any alcohol or drug abuse patient.[facility]onIn the event this information is protected by the Federal Confidentiality of Alcohol and Drug Abuse Patient Records regulations: The Federal rules restrict any use of the information to criminally investigate or prosecute any alcohol or drug abuse patient.[facility]onIn the event this information is protected by the Federal Confidentiality of Alcohol and Drug Abuse Patient Records regulations: The Federal rules restrict any use of the information to criminally investigate or prosecute any alcohol or drug abuse patient.[facility]onIn the event this information is protected by the Federal Confidentiality of Alcohol and Drug Abuse Patient Records regulations: The Federal rules restrict any use of the information to criminally investigate or prosecute any alcohol or drug abuse patient.[facility]onIn the event this information is protected by the Federal Confidentiality of Alcohol and Drug Abuse Patient Records regulations: The Federal rules restrict any use of the information to criminally investigate or prosecute any alcohol or drug abuse patient.[facility]onIn the event this information is protected by the Federal Confidentiality of Alcohol and Drug Abuse Patient Records regulations: The Federal rules restrict any use of the information to criminally investigate or prosecute any alcohol or drug abuse patient.[facility]onIn the event this information is protected by the Federal Confidentiality of Alcohol and Drug Abuse Patient Records regulations: The Federal rules restrict any use of the information to criminally investigate or prosecute any alcohol or drug abuse patient.[facility]onIn the event this information is protected by the Federal Confidentiality of Alcohol and Drug Abuse Patient Records regulations: The Federal rules restrict any use of the information to criminally investigate or prosecute any alcohol or drug abuse patient.[facility]onIn the event this information is protected by the Federal Confidentiality of Alcohol and Drug Abuse Patient Records regulations: The Federal rules restrict any use of the information to criminally investigate or prosecute any alcohol or drug abuse patient.[facility]onIn the event this information is protected by the Federal Confidentiality of Alcohol and Drug Abuse Patient Records regulations: The Federal rules restrict any use of the information to criminally investigate or prosecute any alcohol or drug abuse patient.[facility]onIn the event this information is protected by the Federal Confidentiality of Alcohol and Drug Abuse Patient Records regulations: The Federal rules restrict any use of the information to criminally investigate or prosecute any alcohol or drug abuse patient.[facility]onIn the event this information is protected by the Federal Confidentiality of Alcohol and Drug Abuse Patient Records regulations: The Federal rules restrict any use of the information to criminally investigate or prosecute any alcohol or drug abuse patient.[facility]onIn the event this information is protected by the Federal Confidentiality of Alcohol and Drug Abuse Patient Records regulations: The Federal rules restrict any use of the information to criminally investigate or prosecute any alcohol or drug abuse patient.[facility]onIn the event this information is protected by the Federal Confidentiality of Alcohol and Drug Abuse Patient Records regulations: The Federal rules restrict any use of the information to criminally investigate or prosecute any alcohol or drug abuse patient.[facility]onIn the event this information is protected by the Federal Confidentiality of Alcohol and Drug Abuse Patient Records regulations: The Federal rules restrict any use of the information to criminally investigate or prosecute any alcohol or drug abuse patient.[facility]onIn the event this information is protected by the Federal Confidentiality of Alcohol and Drug Abuse Patient Records regulations: The Federal rules restrict any use of the information to criminally investigate or prosecute any alcohol or drug abuse patient.[facility]onIn the event this information is protected by the Federal Confidentiality of Alcohol and Drug Abuse Patient Records regulations: The Federal rules restrict any use of the information to criminally investigate or prosecute any alcohol or drug abuse patient.[facility]onIn the event this information is protected by the Federal Confidentiality of Alcohol and Drug Abuse Patient Records regulations: The Federal rules restrict any use of the information to criminally investigate or prosecute any alcohol or drug abuse patient.[facility]onIn the event this information is protected by the Federal Confidentiality of Alcohol and Drug Abuse Patient Records regulations: The Federal rules restrict any use of the information to criminally investigate or prosecute any alcohol or drug abuse patient.[facility]onIn the event this information is protected by the Federal Confidentiality of Alcohol and Drug Abuse Patient Records regulations: The Federal rules restrict any use of the information to criminally investigate or prosecute any alcohol or drug abuse patient.[facility]onIn the event this information is protected by the Federal Confidentiality of Alcohol and Drug Abuse Patient Records regulations: The Federal rules restrict any use of the information to criminally investigate or prosecute any alcohol or drug abuse patient.[facility]onIn the event this information is protected by the Federal Confidentiality of Alcohol and Drug Abuse Patient Records regulations: The Federal rules restrict any use of the information to criminally investigate or prosecute any alcohol or drug abuse patient.[facility]onIn the event this information is protected by the Federal Confidentiality of Alcohol and Drug Abuse Patient Records regulations: The Federal rules restrict any use of the information to criminally investigate or prosecute any alcohol or drug abuse patient.[facility]onIn the event this information is protected by the Federal Confidentiality of Alcohol and Drug Abuse Patient Records regulations: The Federal rules restrict any use of the information to criminally investigate or prosecute any alcohol or drug abuse patient.[facility]onIn the event this information is protected by the Federal Confidentiality of Alcohol and Drug Abuse Patient Records regulations: The Federal rules restrict any use of the information to criminally investigate or prosecute any alcohol or drug abuse patient.[facility]onIn the event this information is protected by the Federal Confidentiality of Alcohol and Drug Abuse Patient Records regulations: The Federal rules restrict any use of the information to criminally investigate or prosecute any alcohol or drug abuse patient.[facility]onIn the event this information is protected by the Federal Confidentiality of Alcohol and Drug Abuse Patient Records regulations: The Federal rules restrict any use of the information to criminally investigate or prosecute any alcohol or drug abuse patient.[facility]onIn the event this information is protected by the Federal Confidentiality of Alcohol and Drug Abuse Patient Records regulations: The Federal rules restrict any use of the information to criminally investigate or prosecute any alcohol or drug abuse patient.[facility]onIn the event this information is protected by the Federal Confidentiality of Alcohol and Drug Abuse Patient Records regulations: The Federal rules restrict any use of the information to criminally investigate or prosecute any alcohol or drug abuse patient.[facility]onIn the event this information is protected by the Federal Confidentiality of Alcohol and Drug Abuse Patient Records regulations: The Federal rules restrict any use of the information to criminally investigate or prosecute any alcohol or drug abuse patient.[facility]onIn the event this information is protected by the Federal Confidentiality of Alcohol and Drug Abuse Patient Records regulations: The Federal rules restrict any use of the information to criminally investigate or prosecute any alcohol or drug abuse patient.[facility]onIn the event this information is protected by the Federal Confidentiality of Alcohol and Drug Abuse Patient Records regulations: The Federal rules restrict any use of the information to criminally investigate or prosecute any alcohol or drug abuse patient.[facility]onIn the event this information is protected by the Federal Confidentiality of Alcohol and Drug Abuse Patient Records regulations: The Federal rules restrict any use of the information to criminally investigate or prosecute any alcohol or drug abuse patient.[facility]onIn the event this information is protected by the Federal Confidentiality of Alcohol and Drug Abuse Patient Records regulations: The Federal rules restrict any use of the information to criminally investigate or prosecute any alcohol or drug abuse patient.[facility]onIn the event this information is protected by the Federal Confidentiality of Alcohol and Drug Abuse Patient Records regulations: The Federal rules restrict any use of the information to criminally investigate or prosecute any alcohol or drug abuse patient.[facility]onIn the event this information is protected by the Federal Confidentiality of Alcohol and Drug Abuse Patient Records regulations: The Federal rules restrict any use of the information to criminally investigate or prosecute any alcohol or drug abuse patient.[facility]onIn the event this information is protected by the Federal Confidentiality of Alcohol and Drug Abuse Patient Records regulations: The Federal rules restrict any use of the information to criminally investigate or prosecute any alcohol or drug abuse patient.[facility] [facility] the event this information is protected by the Federal Confidentiality of Alcohol and Drug Abuse Patient Records regulations: The Federal rules restrict any use of the information to criminally investigate or prosecute any alcohol or drug abuse patient.[facility] the event this information is protected by the Federal Confidentiality of Alcohol and Drug Abuse Patient Records regulations: The Federal rules restrict any use of the information to criminally investigate or prosecute any alcohol or drug abuse patient.[facility]on[facility] the event this information is protected by the Federal Confidentiality of Alcohol and Drug Abuse Patient Records regulations: The Federal rules restrict any use of the information to criminally investigate or prosecute any alcohol or drug abuse patient.[facility]on[facility] the event this information is protected by the Federal Confidentiality of Alcohol and Drug Abuse Patient Records regulations: The Federal rules restrict any use of the information to criminally investigate or prosecute any alcohol or drug abuse patient.[facility]on[facility] the event this information is protected by the Federal Confidentiality of Alcohol and Drug Abuse Patient Records regulations: The Federal rules restrict any use of the information to criminally investigate or prosecute any alcohol or drug abuse patient.[facility]onIn the event this information is protected by the Federal Confidentiality of Alcohol and Drug Abuse Patient Records regulations: The Federal rules restrict any use of the information to criminally investigate or prosecute any alcohol or drug abuse patient.[facility]onIn the event this information is protected by the Federal Confidentiality of Alcohol and Drug Abuse Patient Records regulations: The Federal rules restrict any use of the information to criminally investigate or prosecute any alcohol or drug abuse patient.[facility]onIn the event this information is protected by the Federal Confidentiality of Alcohol and Drug Abuse Patient Records regulations: The Federal rules restrict any use of the information to criminally investigate or prosecute any alcohol or drug abuse patient.[facility]onIn the event this information is protected by the Federal Confidentiality of Alcohol and Drug Abuse Patient Records regulations: The Federal rules restrict any use of the information to criminally investigate or prosecute any alcohol or drug abuse patient.[facility]onIn the event this information is protected by the Federal Confidentiality of Alcohol and Drug Abuse Patient Records regulations: The Federal rules restrict any use of the information to criminally investigate or prosecute any alcohol or drug abuse patient.[facility]onIn the event this information is protected by the Federal Confidentiality of Alcohol and Drug Abuse Patient Records regulations: The Federal rules restrict any use of the information to criminally investigate or prosecute any alcohol or drug abuse patient.[facility]onIn the event this information is protected by the Federal Confidentiality of Alcohol and Drug Abuse Patient Records regulations: The Federal rules restrict any use of the information to criminally investigate or prosecute any alcohol or drug abuse patient.[facility]onIn the event this information is protected by the Federal Confidentiality of Alcohol and Drug Abuse Patient Records regulations: The Federal rules restrict any use of the information to criminally investigate or prosecute any alcohol or drug abuse patient.[facility]onIn the event this information is protected by the Federal Confidentiality of Alcohol and Drug Abuse Patient Records regulations: The Federal rules restrict any use of the information to criminally investigate or prosecute any alcohol or drug abuse patient.[facility]onIn the event this information is protected by the Federal Confidentiality of Alcohol and Drug Abuse Patient Records regulations: The Federal rules restrict any use of the information to criminally investigate or prosecute any alcohol or drug abuse patient.[facility]onIn the event this information is protected by the Federal Confidentiality of Alcohol and Drug Abuse Patient Records regulations: The Federal rules restrict any use of the information to criminally investigate or prosecute any alcohol or drug abuse patient.[facility]onIn the event this information is protected by the Federal Confidentiality of Alcohol and Drug Abuse Patient Records regulations: The Federal rules restrict any use of the information to criminally investigate or prosecute any alcohol or drug abuse patient.[facility]onIn the event this information is protected by the Federal Confidentiality of Alcohol and Drug Abuse Patient Records regulations: The Federal rules restrict any use of the information to criminally investigate or prosecute any alcohol or drug abuse patient.[facility]onIn the event this information is protected by the Federal Confidentiality of Alcohol and Drug Abuse Patient Records regulations: The Federal rules restrict any use of the information to criminally investigate or prosecute any alcohol or drug abuse patient.[facility]onIn the event this information is protected by the Federal Confidentiality of Alcohol and Drug Abuse Patient Records regulations: The Federal rules restrict any use of the information to criminally investigate or prosecute any alcohol or drug abuse patient.[facility]onIn the event this information is protected by the Federal Confidentiality of Alcohol and Drug Abuse Patient Records regulations: The Federal rules restrict any use of the information to criminally investigate or prosecute any alcohol or drug abuse patient.[facility]onIn the event this information is protected by the Federal Confidentiality of Alcohol and Drug Abuse Patient Records regulations: The Federal rules restrict any use of the information to criminally investigate or prosecute any alcohol or drug abuse patient.[facility]onIn the event this information is protected by the Federal Confidentiality of Alcohol and Drug Abuse Patient Records regulations: The Federal rules restrict any use of the information to criminally investigate or prosecute any alcohol or drug abuse patient.[facility]onIn the event this information is protected by the Federal Confidentiality of Alcohol and Drug Abuse Patient Records regulations: The Federal rules restrict any use of the information to criminally investigate or prosecute any alcohol or drug abuse patient.[facility]onIn the event this information is protected by the Federal Confidentiality of Alcohol and Drug Abuse Patient Records regulations: The Federal rules restrict any use of the information to criminally investigate or prosecute any alcohol or drug abuse patient.[facility] Reason for Visit (unrecogniz ed section and content) Reason Comments PT Discharge Specialty Diagnoses / Procedures Referred By Contac t Referred To Contact PHYSICAL THERAPY Diagnoses Unilateral primary osteoarthritis, left knee Presence of left artificial knee joint Aftercare following joint replacement surgery Procedures FOLLOW-UP/REASSESSMENT Scott Valero PA-C [address] [place] [address] [address] [place] [address] Referral ID Status Reason Start Date Expiration Date V isits Requested Visits Authorized [id number] Authorized 10/16/2023 08/25/2024 99 99 Reason Comments [...] MINS Fatoumata Lyn, DO [address] [place] [address] [facility] [place] [address] [place] [id number] Referral ID Status Reason Start Date Expiration Date Visits Requested Visits Authorized [id number] Authorized PCP Requested Referral Auto-Generate d Referral 10/29/2022 10/29/2023 99 99 Reason Comments Back Pain Reason Onset Date Comments Refill Request 02/22/2022 Reason Comments Pain Reason Onset Date Comments Refill Request 05/02/2022 Reason Onset Date Comments Refill Request 06/11/2022 Reason Onset Date Comments Refill Request 06/13/2022 Reason Comments Spirometry Specialty Diagnoses / Procedures Referred By Contac t Referred To [facility] Diagnoses Dyspnea on exertion Procedures SPIROMETRY - BASELINE AND POST DILATOR BRNCDILAT RSPSE SPMTRY PRE&POST-BRNCDILAT ADMN [facility], Provider NON-STAFF PROVIDER [facility] [place] [address] [place] [address] Referral ID Status Reason Start Date Expiration Date V isits Requested Visits Authorized [id number] Closed Auto-Generate d Referral 06/04/2022 07/04/2023 1 1 Specialty Diagnoses / Procedures Referred By Contac t Referred To Contact [facility] Diagnoses Dyspnea on exertion Procedures MAXIMAL VOLUNTARY VENTILATION MAX BREATHING CAPACITY MAXIMAL VOLUNTARY VENTJ [facility], Provider NON-STAFF PROVIDER [facility] [place] [address] [place] [address] Referral ID Status Reason Start Date Expiration Date V isits Requested Visits Authorized [id number] Closed Auto-Generate d Referral 06/04/2022 07/04/2023 1 1 Specialty Diagnoses / Procedures Referred By Contac t Referred To Contact [facility] Diagnoses Dyspnea on exertion Procedures LUNG DIFFUSION CAPACITY (DLCO) DIFFUSING CAPACITY [facility], Provider NON-STAFF PROVIDER Respiratory [address] [address] Referral ID Status Reason Start Date Expiration Date V isits Requested Visits Authorized [id number] Closed Auto-Generate d Referral 06/04/2022 07/04/2023 1 1 Specialty Diagnoses / Procedures Referred By Contac t Referred To Contact [facility] Diagnoses Dyspnea on exertion Procedures LUNG VOLUMES [facility], Provider NON-STAFF PROVIDER Respiratory [address] [address] Referral ID Status Reason Start Date Expiration Date V isits Requested Visits Authorized [id number] Closed Auto-Generate d Referral 06/04/2022 07/04/2023 1 [...] Date Comments Refill Request 01/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 Date Comments Refill [...] Care Teams (unrecognized sec tion and content) Mirror Machine Feeder Relationship Specialty Start Date End Date Luda Ann, DO [address] [place] [address] PCP - General Internal Medicine 02/09/22 Mirror Machine Feeder Relationship Specialty Start Date End Date Luda Ann DO [address] [place] [address] PCP - General Internal Medicine 02/09/22 Mirror Machine Feeder Relationship Specialty Start Date End Date Luda Ann DO [address] [place] [address] PCP - General Internal Medicine 02/09/22 Mirror Machine Feeder Relationship Specialty Start Date End Date Luda Ann DO [address] [place] [address] PCP - General Internal Medicine 02/09/22 Mirror Machine Feeder Relationship Specialty Start Date End Date Luda Ann DO [address] [place] [address] PCP - General Internal Medicine 02/09/22 Mirror Machine Feeder Relationship Specialty Start Date End Date Luda Ann DO [address] [place] [address] PCP - General Internal Medicine 02/09/22 Mirror Machine Feeder Relationship Specialty Start Date End Date Luda Ann DO [address] [place] [address] PCP - General Internal Medicine 02/09/22 Mirror Machine Feeder Relationship Specialty Start Date End Date Luda Ann DO [address] [place] [address] PCP - General Internal Medicine 02/09/22 Mirror Machine Feeder Relationship Specialty Start Date End Date Luda Ann, DO [address] [place] [address] PCP - General Internal Medicine 02/09/22 Mirror Machine Feeder Relationship Specialty Start Date End Date Luda Ann, DO [address] [place] [address] PCP - General Internal Medicine 02/09/22 Mirror Machine Feeder Relationship Specialty Start Date End Date Luda Ann, DO [address] [place] [address] PCP - General Internal Medicine 02/09/22 Mirror Machine Feeder Relationship Specialty Start Date End Date Luda Ann, DO [address] [place] [address] PCP - General Internal Medicine 02/09/22 Mirror Machine Feeder Relationship Specialty Start Date End Date Luda Ann, DO [address] [place] [address] PCP - General Internal Medicine 02/09/22 Mirror Machine Feeder Relationship Specialty Start Date End Date Luda Ann, DO [address] [place] [address] PCP - General Internal Medicine 02/09/22 Mirror Machine Feeder Relationship Specialty Start Date End Date Luda Ann DO [address] [place] [address] PCP - General Internal Medicine 02/09/22 Mirror Machine Feeder Relationship Specialty Start Date End Date Luda Ann DO [address] [place] [address] PCP - General Internal Medicine 02/09/22 Mirror Machine Feeder Relationship Specialty Start Date End Date Luda Ann DO [address] [place] [address] PCP - General Internal Medicine 02/09/22 Mirror Machine Feeder Relationship Specialty Start Date End Date Luda Ann DO [address] [place] [address] PCP - General Internal Medicine 02/09/22 Mirror Machine Feeder Relationship Specialty Start Date End Date Luda Ann DO [address] [place] [address] PCP - General Internal Medicine 02/09/22 Mirror Machine Feeder Relationship Specialty Start Date End Date Luda Ann DO [address] [place] [address] PCP - General Internal Medicine 02/09/22 Mirror Machine Feeder Relationship Specialty Start Date End Date Luda Ann DO [address] [place] [address] PCP - General Internal Medicine 02/09/22 Mirror Machine Feeder Relationship Specialty Start Date End Date Luda Ann DO [address] [place] [address] PCP - General Internal Medicine 02/09/22 Mirror Machine Feeder Relationship Specialty Start Date End Date Luda Ann DO [address] [place] [address] PCP - General Internal Medicine 02/09/22 Mirror Machine Feeder Relationship Specialty Start Date End Date Luda Ann DO [address] [place] [address] PCP - General Internal Medicine 02/09/22 Mirror Machine Feeder Relationship Specialty Start Date End Date Luda Ann DO [address] [place] [address] PCP - General Internal Medicine 02/09/22 Mirror Machine Feeder Relationship Specialty Start Date End Date Luda Ann DO [address] [place] [address] PCP - General Internal Medicine 02/09/22 Mirror Machine Feeder Relationship Specialty Start Date End Date Luda Ann DO [address] [place] [address] PCP - General Internal Medicine 02/09/22 Mirror Machine Feeder Relationship Specialty Start Date End Date Luda Ann DO [address] [place] [address] PCP - General Internal Medicine 02/09/22 Mirror Machine Feeder Relationship Specialty Start Date End Date Luda Ann DO [address] [place] [address] PCP - General Internal Medicine 02/09/22 Mirror Machine Feeder Relationship Specialty Start Date End Date Luda Ann DO [address] [place] [address] PCP - General Internal Medicine 02/09/22 Mirror Machine Feeder Relationship Specialty Start Date End Date Luda Ann DO [address] [place] [address] PCP - General Internal Medicine 02/09/22 Mirror Machine Feeder Relationship Specialty Start Date End Date Luda Ann DO [address] [place] [address] PCP - General Internal Medicine 02/09/22 Mirror Machine Feeder Relationship Specialty Start Date End Date Luda Ann DO [address] [place] [address] PCP - General Internal Medicine 02/09/22 Mirror Machine Feeder Relationship Specialty Start Date End Date Luda Ann DO [address] [place] [address] PCP - General Internal Medicine 02/09/22 Mirror Machine Feeder Relationship Specialty Start Date End Date Luda Ann DO [address] [place] [address] PCP - General Internal Medicine 02/09/22 Mirror Machine Feeder Relationship Specialty Start Date End Date Luda Ann DO [address] [place] [address] PCP - General Internal Medicine 02/09/22 Mirror Machine Feeder Relationship Specialty Start Date End Date Luda Ann DO [address] [place] [address] PCP - General Internal Medicine 02/09/22 Mirror Machine Feeder Relationship Specialty Start Date End Date Luda Ann DO [address] [place] [address] PCP - General Internal Medicine 02/09/22 Mirror Machine Feeder Relationship Specialty Start Date End Date Luda Ann DO [address] [place] [address] PCP - General Internal Medicine 02/09/22 Mirror Machine Feeder Relationship Specialty Start Date End Date Luda Ann DO [address] [place] [address] PCP - General Internal Medicine 02/09/22 Mirror Machine Feeder Relationship Specialty Start Date End Date Luda Ann DO [address] [place] [address] PCP - General Internal Medicine 02/09/22 Mirror Machine Feeder Relationship Specialty Start Date End Date Luda Ann DO [address] [place] [address] PCP - General Internal Medicine 02/09/22 Mirror Machine Feeder Relationship Specialty Start Date End Date Luda Ann DO [address] [place] [address] PCP - General Internal Medicine 02/09/22 Mirror Machine Feeder Relationship Specialty Start Date End Date Luda Ann DO [address] [place] [address] PCP - General Internal Medicine 02/09/22 Mirror Machine Feeder Relationship Specialty Start Date End Date Luda Ann DO [address] [place] [address] PCP - General Internal Medicine 02/09/22 Mirror Machine Feeder Relationship Specialty Start Date End Date Luda Ann DO [address] [place] [address] PCP - General Internal Medicine 02/09/22 Mirror Machine Feeder Relationship Specialty Start Date End Date Luda Ann DO [address] [place] [address] PCP - General Internal Medicine 02/09/22 Mirror Machine Feeder Relationship Specialty Start Date End Date Luda Ann DO [address] [place] [address] PCP - General Internal Medicine 02/09/22 Mirror Machine Feeder Relationship Specialty Start Date End Date Luda Ann DO [address] [place] [address] PCP - General Internal Medicine 02/09/22 Mirror Machine Feeder Relationship Specialty Start Date End Date Luda Ann DO [address] [place] [address] PCP - General Internal Medicine 02/09/22 Mirror Machine Feeder Relationship Specialty Start Date End Date Luda Ann DO [address] [place] [address] PCP - General Internal Medicine 02/09/22 Mirror Machine Feeder Relationship Specialty Start Date End Date Luda Ann DO [address] [place] [address] PCP - General Internal Medicine 02/09/22 Mirror Machine Feeder Relationship Specialty Start Date End Date Luda Ann DO [address] [place] [address] PCP - General Internal Medicine 02/09/22 Team Status: Active Member Role/Relationship Status Dates Dr. Jose Juan Springer MD Attending Provider Active Start: February 25, 2025 Team Status: Inactive Member Role/Relationship Status Dates Dr. Rodriguez Coleman MD Attending Provider Active S tart: February 25, 2025 End: February 25, 2025 Team Status: Inactive Member Role/Relationship Status Dates Dr. Jose Juan Sprinegr MD Attending Provider Active Start: February 25, [...] BE BASED ON THE PRIMARY CLINICAL RECORDS. [employer] provides no warranty or guarantee of the accuracy or completeness of information in this document.
== END | disposition home or self-care (01) ==
LOC: MRI 11:23
PROVIDERS: PCP Internal Medicine; Referring Provider Orthopaedic Surgery Orthopaedic Surgery of the Spine; Visit Provider Orthopaedic Surgery Orthopaedic Surgery of the Spine
DX: M43.16 Spondylolisthesis, lumbar region (principal); Z98.1 Arthrodesis status
CPT/HCPCS: 72148

== ENCOUNTER 2025-05-26 12:56 | Observation (INO) | payer MEDICARE, OTHER, SELFPAY ==
--- NOTE | 2025-05-13 12:44 | EKG12_ITS ---
Test Reason : OP Blood Pressure : */* mmHG Vent. Rate : 89 BPM Atrial Rate : 89 BPM P-R Int : 136 ms QRS Dur : 66 ms QT Int : 398 ms P-R-T Axes : 32 3 7 degrees QTcB Int : 484 ms Normal sinus rhythm Normal ECG Confirmed by VISHAL ELENA, ANTONINA ([id number]), brands editor DAVID CHOWDHURY ([id number]) on 05/14/2025 10:41:20 AM Referred By: Jose Juan Springer Confirmed By: ANTONINA RODGESR MD
[2025-05-13 13:35] LABS: Hematocrit 44.0 % (37-47); Hemoglobin 14.9 g/dL (12.0-15.0); Immature Granulocytes Count 0.030 X10^3/uL (0.0-0.0); Mean Corp Hgb Conc 33.9 g/dL (32-36); Mean Corpuscular Volume 94.6 fL (81-99); Mean Platelet Vol. 9.1 fl (6.2-12.0); NRBC Flagged by Analyzer 0 % (0-5); Platelet Count 233 K/mm3 (150-450); RBC Distribution Width CV 12.0 % (11.6-14.6); RBC Distribution Width SD 41.8 fl (35.1-43.9); Red Blood Count 4.65 M/mm3 (4.2-5.4); White Blood Count 7.7 K/mm3 (4.4-11.0)
[2025-05-13 14:30] LABS: Anion Gap 11 (5-15); BUN 18 mg/dL (4-19); BUN/Creat Ratio 27.8 RATIO (10-20); Calcium,Total 9.0 mg/dL (7.6-11.0); Carbon Dioxide 25.8 mmol/L (21.0-32.0); Chloride 102 mmol/L (98-108); Glucose 99 mg/dL (70-99); Potassium 4.1 mmol/L (3.3-5.1)
--- NOTE | 2025-05-13 17:23 | PAT.ANE_ITS ---
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 When Was Last Pacemaker Check QUESTION #4 FULL TEXT: You/Your Family Experience fever (hyperthermia) with Anesthesia Last Oral Intake Last Oral intake: Last Oral Intake NPO since Meds taken in AM with sips of water? 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 Female Yes 05/12/25 17:02 HX of Motion Sickness No 05/12/25 17:02 HX of N/V After Surgery No 05/12/25 17:02 Non-Smoker Yes 05/12/25 17:02 Duration of Surgery greater Yes 05/12/25 17:02 than 60 minutes Number of Risk Factors 3 05/12/25 17:02 PONV Score Moderate Risk 05/12/25 17:02 Height & Weight Height & Weight: Anesthesia: Height & Weight Height 5 ft 02/25/25 14:46 Respiratory Assessment Respiratory Assessment - professor of mechanical engineering: Respiratory Tract Infection Hx - professor of mechanical engineering Hx Respiratory Tract Infection No 05/12/25 17:02 STOP Sleep Apnea STOP Sleep Apnea - professor of mechanical engineering: STOP Sleep Apnea - professor of mechanical engineering Hx Hypertension Yes: CONTROLLED WITH MED 05/12/25 17:02 Hx Sleep Apnea No 05/12/25 17:02 CPAP BIPAP Do you snore loudly (louder No 05/12/25 17:02 than talking or can be heard Do you often feel tired/ No 05/12/25 17:02 fatigued/ sleepy during daytime? Has anyone observed you stop No 05/12/25 17:02 breathing during sleep? STOP Results Negative 05/12/25 17:02 QUESTION #5 FULL TEXT : Do you snore loudly (louder than talking or can be heard through closed doors)? 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 Specify any problems Hx of Preganancy in last 3 No 05/12/25 17:02 Months Nurse Filling Out Transfusion DSCHRIBER 05/12/25 17:02 & Questions: Date: 05/12/25 05/12/25 17:02 Time: 17:04 05/12/25 17:02 Patient unable to answer at this time (ie. 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: /Reproductive Hx- professor of mechanical engineering Hx Now No 05/12/25 17:02 Gestational Age (in weeks): EDC: Hx Hx Para Hx Section SAB No 05/12/25 17:02 PFSH Medical History Glaucoma Loss of hearing Wears glasses Post-menopausal Ambulates with cane Arthritis Easy bruising Back pain History of hiatal hernia History of diverticulitis Shortness of breath on exertion Non-smoker History of pain when walking Cardiology follow-up encounter History of stress test History of irregular heartbeat Chest pain Morbid obesity Bladder prolapse GERD (gastroesophageal reflux disease) Hyperlipemia Hypertension Home Medications ?Medication ?Instructions ?Recorded ?Last Taken ?Type PAIN PUMP (INFORMATIONAL USE 02/25/25 Unknown Hist ory ONLY-PATIENT HAS MORPHINE PUMP) ascorbic acid (vitamin C) 500 mg 500 mg PO DAILY 02/25 Unknown History capsule aspirin 81 mg tablet 81 mg PO QDAY 02/25/25 Unkno wn History brimonidine 0.2 % eye drops 1 drp ophthalmic (eye) BID 02/25/25 Unknown History duloxetine 60 mg capsule,delayed 60 mg PO QHS 02/25/25 Unknown History release famotidine 20 mg tablet 40 mg PO QHS 02/25/25 Unknow n History ferrous sulfate 325 mg (65 mg 325 mg PO QDAY 02/25/25 Unknown History iron) tablet (FeroSul) gabapentin 800 mg tablet 800 mg PO TID 02/25/25 Unkno wn History latanoprost 0.005 % eye drops 1 drp ophthalmic (eye) Q PM 02/25/25 Unknown History lidocaine-prilocaine 2.5 %-2.5 % 1 applic topical TID PRN pain 02/25/25 Unknown History topical cream lisinopril 20 1 tab PO QDAY 02/25/25 Unkno wn History mg-hydrochlorothiazide 25 mg tablet omeprazole 40 mg capsule,delayed 40 mg PO QDAY 5 Unknown History release simvastatin 20 mg tablet 20 mg PO QHS 02/25/25 Unknow n History tolterodine 4 mg capsule,extended 4 mg PO QDAY 5 Unknown History release 24 hr calcium carbonate 1,200 mg PO DAILY 05/12/25 U nknown History cholecalciferol (vitamin D3) 50 50 mcg PO DAILY Unknown History mcg (2,000 unit) capsule (Vitamin D3) folic acid 800 mcg tablet 0.8 mg PO DAILY 05/12/25 Unk nown History lactobacillus combination no.4 3 3,000 mmu cells PO DA SONYA 05/12/25 Unknown History billion cell capsule (Probiotic) multivitamin (Daily Multi-Vitamin 1 tab PO DAILY 05/12 Unknown History tablet) zinc gluconate 50 mg tablet 50 mg PO DAILY 05/12/25 Un known History Allergy/AdvReac Type Severity Reaction Status Date / Time No Known Allergies Allergy Verified 05/13/25 11:03 Surgical History History of cardiac catheterization Hx of bladder repair surgery History of esophagogastroduodenoscopy (EGD) Hx of colonoscopy Hx of total hip arthroplasty Hx of tonsillectomy H/O: hysterectomy History of hip replacement H/O spinal fusion H/O carpal tunnel repair History of knee replacement Social History Smoking Status: Never smoker Audit: Pertinent Findings Pertinent Findings EKG Perinent findings: September 21, 2024. Normal sinus rhythm. Compared to EKG of August 20, 2024 no changes. Stress test pertinent findings: 08/20/2024. Possible mild ischemia at the apex. No evidence of scarred myocardium. Mild ischemia in the territory of the LAD. EF of 82%. (See cath below) Echo (EF%) pertinent findings: 02/01/2023. EF of 57%. No aortic stenosis. Heart catheterization pertinent findings: 09/21/2024. Minimal coronary disease other than moderate diffuse disease of the LAD and distal branch of the RCA. Consult pertinent findings: June 25, 2024. Dr. Cardona. 1. Coronary artery calcification seen on CT scan-normal Cardiolite in 07/17. No significant fixed obstructive CAD demonstrated. Consider repeat Lexiscan Cardiolite. (See above). Noncardiac chest pain?likely GI. 2. Dyspnea-06/25/2024. Suspect BMI 43+ causing some restrictive/interstitial lung disease. Room air oxygen at 91%. Consider PFTs, weight loss. 3. Hypertension-okay Recommendation Anesthesia Recommendation Anesthesia recommendation: OPTIMIZED for anesthesia
[2025-05-14 09:39] LABS: AST(SGOT) 28 U/L (<=31); Alanine Aminotransfer ALT/SGPT 19 U/L (<=34); Albumin, Serum 3.7 g/dL (3.4-4.8); Alkaline Phosphatase 113 U/L (35-104); Bilirubin, Direct 0.27 mg/dL (0.00-0.30); Globulin 2.9 g/dL (2.2-4.2); Magnesium 2.0 mg/dL (1.5-2.2)
[2025-05-26] VITALS (16 sets, daily range): BP systolic 102–130; BP diastolic 60–93; PULSE 79–103; RESP 14–18; TEMP 36.2–36.7; O2SAT 93–100; BMI 44.3; BMI 44.6
[2025-05-26] MEDS: Magnesium 1 GM over 15 mins IV (09:24)
[2025-05-26] MEDS: Lactated Ringers 1,000 ML 15 ML IV (09:24)
--- NOTE | 2025-05-26 09:28 | HP.PCM_ITS ---
History and Physical MR#: [id number] Acct: [id number] Name: MICHAEL SANDERS Rep #: [id number] : 1950 Provider: Dr. Jose Juan Springer MD Age/Sex: 74/F Location: [facility] [place] Status: Signed Intake Vital Signs 02/25/2514:46 05/13/2511:00 Height 5 ft 5 ft Weight: 226 lb 226 lb BMI 44.1 44.1 Intake Visit Reasons: spine Chief Complaint: lumbar spine pre op Accompanied by: Self Is patient in pain?: Yes Pain scale (1-10): 5 Allergies No Known Allergies Allergy (Verified 05/13/25 11:03) Medications ?Medication ?Instructions ?Recorded ?Confirmed ?Type PAIN PUMP (INFORMATIONAL USE 02/25/25 05/13/25 History ONLY-PATIENT HAS MORPHINE PUMP) ascorbic acid (vitamin C) 500 mg 500 mg PO DAILY 02/25/25 05/13/25 Histor y capsule aspirin 81 mg tablet 81 mg PO QDAY 02/25/25 05/13/25 History brimonidine 0.2 % eye drops 1 drp ophthalmic (eye) BID 02/25/2504/26 History duloxetine 60 mg capsule,delayed 60 mg PO QHS 02/25/25 05/13/25 History release famotidine 20 mg tablet 40 mg PO QHS 02/25/25 05/13/25 History ferrous sulfate 325 mg (65 mg 325 mg PO QDAY 02/25/25 05/13/25 History iron) tablet (FeroSul) gabapentin 800 mg tablet 800 mg PO TID 02/25/25 05/13/25 History latanoprost 0.005 % eye drops 1 drp ophthalmic (eye) QPM 02/25/2504/26 History lidocaine-prilocaine 2.5 %-2.5 % 1 applic topical TID PRN pain 02/25/25 0 05/13/25 History topical cream lisinopril 20 1 tab PO QDAY 02/25/25 05/13/25 History mg-hydrochlorothiazide 25 mg tablet omeprazole 40 mg capsule,delayed 40 mg PO QDAY 02/25/25 05/13/25 History release simvastatin 20 mg tablet 20 mg PO QHS 02/25/25 05/13/25 History tolterodine 4 mg capsule,extended 4 mg PO QDAY 02/25/25 05/13/25 History release 24 hr calcium carbonate 1,200 mg PO DAILY 05/12/25 05/13/25 Hist ory cholecalciferol (vitamin D3) 50 50 mcg PO DAILY 05/12/25 05/13/25 Histor y mcg (2,000 unit) capsule (Vitamin D3) folic acid 800 mcg tablet 0.8 mg PO DAILY 05/12/25 05/13/25 Histor y lactobacillus combination no.4 3 3,000 mmu cells PO DAILY 05/12/25 History billion cell capsule (Probiotic) multivitamin (Daily Multi-Vitamin 1 tab PO DAILY 05/12/25 05/13/25 History tablet) zinc gluconate 50 mg tablet 50 mg PO DAILY 05/12/25 05/13/25 History Have you fallen in the past year?: No PFSH Medical History Glaucoma Loss of hearing Wears glasses Post-menopausal Ambulates with cane Arthritis Easy bruising Back pain History of hiatal hernia History of diverticulitis Shortness of breath on exertion Non-smoker History of pain when walking Cardiology follow-up encounter History of stress test History of irregular heartbeat Chest pain Morbid obesity Bladder prolapse GERD (gastroesophageal reflux disease) Hyperlipemia Hypertension Surgical History History of cardiac catheterization Hx of bladder repair surgery History of esophagogastroduodenoscopy (EGD) Hx of colonoscopy Hx of total hip arthroplasty Hx of tonsillectomy H/O: hysterectomy History of hip replacement H/O spinal fusion H/O carpal tunnel repair History of knee replacement Social History Smoking Status: Never smoker HPI spine Details: This documentation accurately reflects the service provided and the decisions made by me, Dr. Jose Juan Springer MD 05/13/25 8940. Part of today?s visit was documented by Kylee Grijalva MA, acting as scribe. MICHAEL SANDERS is a 74 year old F here today for lumbar spine pre op. Anyi ent states that her pain is a 5 today. She states that she hasn't had any injections in her lower back. Patient states that she did try physical therapy in the past. She states that the physical therapy didn't help. Patient states that she would like to know what she can and can't do after surgery. She would like to know how long she would be at the hospital for. The patient is a 74-year-old female presenting with chronic back pain management. She has a history of multiple spinal surgeries, which have resulted in significant scarring and chronic pain. The current plan involves a spinal cord stimulator trial to assess pain relief before proceeding with a permanent implant. The procedure involves a thoracic laminectomy to place the paddle lead, due to previous scarring preventing a percutaneous approach. The trial will determine if there is sufficient pain relief to justify the second stage of the procedure, which involves permanent implantation of the stimulator. The patient has been informed about the risks associated with the procedure, including infection and hematoma, especially given the two-stage nature of the surgery. She is not on blood thinners and does not have diabetes, which are favorable factors for her surgical outcome. - Musculoskeletal: Reports chronic back pain. Denies new symptoms. - Endocrine: Denies diabetes. - Hematologic: Denies use of blood thinners. Attestation: Documentation on this patient encounter was supported using ambient scribe technology/ voice AI technology. The patient consented to recording for the purpose of documenting the encounter. Provider reviewed content of the generated note prior to signature. 04/22/25: MICHAEL SANDERS is a 74 year old F here today for MRI review of the lumbar spine. Patient denies any changes to her symptoms. The pain is all in the low back it does not extend down into her legs. The left lower back is the most painful. Dr. Chase was not able to place the spinal cord stimulator due to scar tissue. She does not have diabetes. She denies heart or lung problems. She was experiencing shortness of breath and had a negative cardiac and pulmonary evaluation. She states they felt the shortness of breath was GI related from a hiatal hernia and reflux. She does have a pain pump. Ortho Exam General General: Yes no acute distress Neurologic: Yes alert and Yes oriented x3 Psychologic: Yes reasonable and appropriate Spine SPINE TESTING CERVICAL THORACIC LUMBAR Musculoskeletal Strength 0=absent - 5=normal Details: midline scars from previous lumbar spinal fusion surgery Exam Narrative - Musculoskeletal: Midline and paramedian scars observed on the back, tenderness noted more on the left side than the right side upon deep palpation. - Neurological: Strength testing in lower extremities showed good strength with toe and knee maneuvers. Coding Level of Care Code Off vis,est,level 4 Diagnoses History of lumbar fusion Z98.1 Lumbar adjacent segment disease with spondylolisthesis M51.369; M43.16 Other secondary kyphosis, thoracolumbar region M40.15 Kyphosis type: other secondary Spinal region: thoracolumbar Other secondary scoliosis, thoracolumbar region M41.55 Scoliosis type: other secondary scoliosis Spinal region: thoracolumbar Osteopenia determined by x-ray M85.80 Morbid obesity E66.01 Time Spent (min) 35 Assessment and Plan Assessment and Plan (1) History of lumbar fusion: Status: Acute (2) Lumbar adjacent segment disease with spondylolisthesis: Status: Acute (3) Kyphosis: Status: Acute Qualifiers: Kyphosis type: other secondary Spinal region: thoracolumbar Qualified Code(s): M40.15 - Other secondary kyphosis, thoracolumbar region (4) Scoliosis: Status: Acute Qualifiers: Scoliosis type: other secondary scoliosis Spinal region: thoracolumbar Qualified Code(s): M41.55 - Other secondary scoliosis, thoracolumbar region (5) Osteopenia determined by x-ray: Status: Acute (6) Morbid obesity: Status: Acute Plan Again reviewed pt's MRI in detail. - Imaging: MRI and X-rays show kyphosis above the fusion and instability below, with arthritic changes in the lower spine. Discussed adjacent segment degeneration above and below the fusion. Above the L1-4 fusion, there is worsening kyphosis and scoliosis with apex in the thoracolumbar junction. Below the L1-4 fusion, L4-5 shows spondylolisthesis, L5-S1 shows disc degeneration with foraminal stenosis. 1. Chronic back pain - The patient will undergo a spinal cord stimulator trial to evaluate pain relief. - If successful, a permanent implant will be considered. - The procedure involves a thoracic laminectomy due to previous scarring. - Risks include infection and hematoma, but the patient is not on blood thinners and does not have diabetes, which are favorable factors. - Avoid heavy lifting, twisting, or bending after surgery. - Keep the surgical area clean and dry; sponge baths are recommended. - Monitor for signs of infection or increased swelling and report any concerns immediately. - Engage in light activity and change positions frequently to prevent complications. Discussed treatment options which include correcting the deformity and degeneration above and below the fusion with a multilevel extensive fusion in the thoracolumbar spine going down to the pelvis, versus treating the pain with spinal cord stimulator. At this time, patient wishes to proceed with spinal cord stimulator placement to help with the pain. We discussed that we can do a trial for the paddle lead spinal cord stimulator, this would be an open surgery. If the trail is successful then we can permanently place the stimulator as a second stage. Discussed this procedure in detail and explained the risks, benefits and alternatives. The risks of surgery include bleeding, infection, hematoma, DVT, pulmonary embolism, persistent pain. Explained in detail the procedure of the paddle lead placement. Discussed post-surgery restrictions such as no bending, lifting, or twisting. Answered all questions to the patient?s satisfaction. Patient understands and agrees to proceed with surgery. Consent was signed.
[2025-05-26 09:31] LABS: Prothrombin Time (Protime)PT. 12.4 SECONDS (11.7-14.9)
[2025-05-26 09:32] LABS: Partial Thromboplast Time 25.1 Seconds (24.1-36.2)
--- NOTE | 2025-05-26 10:02 | PCM.PRE.AN2 ---
ASA Classification* ASA Classification ASA Classification: 3 Assessment & Plan Anesthesia* Anesthesia Assessment Anesthesia Assessment: Discussed sedation and/or anesthesia options, risks, benefits, and alternatives with patient/parents/legal guardian/POA. Questions invited. The patient/parents/legal guardian/POA seems to understand and agrees to proceed with anesthesia plan. Reviewed the physical assessment, medical history, allergy history and patient home medications list prior to surgery/procedure/anesthetic and documented any changes. Performed airway and anesthesia risk assessments. Anesthesia Type Anesthesia Type: General History Source History Obtained from:: Patient and Chart Anesthesia Focused Assessment* Temperature: 97.4 F Pulse Rate: 99 Blood Pressure: 125/84 Respiratory Rate: 18 Pulse Ox: 94 Oxygen Delivery Method: Room Air Airway Assessment Mouth opens: >3 cm Mallampati Score: III Labs Anesthesia Preop lab: CBC WBC, (4.4-11.0) 7.7 K/mm3 05/13/25, 13:04 RBC, (4.2-5.4) 4.65 M/mm3 05/13/25, 13:04 Hgb, (12.0-15.0) 14.9 g/dL 05/13/25, 13:04 Hct, (37-47) 44.0 % 05/13/25, 13:04 Plt Count, (150-450) 233 K/mm3 05/13/25, 13:04 CHEMISTRY Potassium, (3.3-5.1) 4.1 mmol/L 05/13/25, 13:04 Sodium, (133-145) 139 mmol/L 05/13/25, 13:04 Magnesium, (1.5-2.2) 2.0 mg/dL 05/13/25, 13:04 BUN, (4-19) 18 mg/dL 05/13/25, 13:04 Creatinine, (0.70-1.20) 0.66 mg/dL L 05/13/25, 13:04 Glucose, (70-99) 99 mg/dL 05/13/25, 13:04 COAG PT, (11.7-14.9) 12.4 SECONDS Today, 09:12 Pre-Assessment Diagnosis/Proposed Procedure Planned Operative Procedure(s): SPINAL CORD STIMULATOR PADDLE LEAD TRIAL, OPEN THORACIC LAMINECTOMY STAGE 1 Anesthesia History Anesthesia History - chemist inorganic: Anesthesia History - chemist inorganic Hx Hospitalization No 05/12/25 17:02 Any Problems With Anesthesia No 05/12/25 17:02 Cholinesterase deficiency No 05/12/25 17:02 You/Your Family Experience No 05/12/25 17:02 fever (hyperthermia) with Relationship Recent Exposure to Contagious No 05/26/25 09:31 Disease Does patient have nerve No 05/12/25 17:02 stimulator Patient instructed to have device shut off --Does patient have Pacemaker No 05/26/25 09:31 or ICD? When Was Last Pacemaker Check QUESTION #4 FULL TEXT: You/Your Family Experience fever (hyperthermia) with Anesthesia Last Oral Intake Last Oral intake: Last Oral Intake NPO since 07:00 05/26/25 09:31 Meds taken in AM with sips of Yes 05/26/25 09:31 water? 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 - chemist inorganic: PONV - chemist inorganic Female Yes 05/12/25 17:02 HX of Motion Sickness No 05/12/25 17:02 HX of N/V After Surgery No 05/12/25 17:02 Non-Smoker Yes 05/12/25 17:02 Duration of Surgery greater Yes 05/12/25 17:02 than 60 minutes Number of Risk Factors 3 05/12/25 17:02 PONV Score Moderate Risk 05/12/25 17:02 Height & Weight Height & Weight: Anesthesia: Height & Weight Height 5 ft 05/26/25 09:31 Weight: 103 kg 05/26/25 09:31 Body Mass Index (BMI) 44.3 05/26/25 09:31 Respiratory Assessment Respiratory Assessment - chemist inorganic: Respiratory Tract Infection Hx - chemist inorganic Hx Respiratory Tract Infection No 05/12/25 17:02 STOP Sleep Apnea STOP Sleep Apnea - chemist inorganic: STOP Sleep Apnea - chemist inorganic Hx Hypertension Yes: CONTROLLED WITH MED 05/12/25 17:02 Hx Sleep Apnea No 05/12/25 17:02 CPAP BIPAP Do you snore loudly (louder No 05/12/25 17:02 than talking or can be heard Do you often feel tired/ No 05/12/25 17:02 fatigued/ sleepy during daytime? Has anyone observed you stop No 05/12/25 17:02 breathing during sleep? STOP Results Negative 05/12/25 17:02 QUESTION #5 FULL TEXT : Do you snore loudly (louder than talking or can be heard through closed doors)? Tobacco Use History Tobacco Use History - chemist inorganic: Tobacco Use History - chemist inorganic Tobacco Use Smoking Status Never smoker 05/12/25 17:02 Hx Tobacco Use No 05/12/25 17:02 Years Smoking Packs Smoked per Day Smoking Cessation Date was within the last 15 years Hx Smoking Cessation Date Hx Smoking Cessation Counseling Hematologic Medial History Hematologic Hx - chemist inorganic: Hematologic Medical Hx - academic coordinator Hx of Blood Transfusion No 05/12/25 17:02 Hx of Transfusion in last 3 No 05/12/25 17:02 Months Date of Last Transfusion (if within last 3 months) Ever experience any problems No 05/12/25 17:02 with transfusion(s)? Specify any problems Hx of Preganancy in last 3 No 05/12/25 17:02 Months Nurse Filling Out Transfusion DSCHRIBER 05/12/25 17:02 & Questions: Date: 05/12/25 05/12/25 17:02 Time: 17:04 05/12/25 17:02 Patient unable to answer at this time (ie. confused, unrespo /Reproduction History /Reproductive History - chemist inorganic: /Reproductive Hx- chemist inorganic Hx Now No 05/12/25 17:02 Gestational Age (in weeks): EDC: Hx Hx Para Hx Section SAB No 05/12/25 17:02 Active Medications Active Medications: Current Medications Generic Name Dose Route Start Last Admin Trade Name Halima PRN Reason Stop Dose Admin Acetaminophen 1,000 mg 05/26/25 10:30 05/26/25 09:45 Acetaminophen 500 Mg Tablet PO 05/26/25 10:31 1,000 mg PREOP ONE Administration Cefazolin Sodium 2 gm/ Sodium 110 mls @ 150 mls/hr 05/26/25 10:30 Chloride IV 05/26/25 11:13 INTRAOP ONE Tranexamic Acid 1,000 mg/ 110 mls @ 440 mls/hr 05/26/25 10:30 Sodium Chloride IV 05/26/25 10:44 INTRAOP ONE Tranexamic Acid 1,000 mg/ 110 mls @ 440 mls/hr 05/26/25 11:30 Sodium Chloride IV 10/01/25 11:44 INTRAOP ONE Magnesium Sulfate 1 gm/ 102 mls @ 408 mls/hr 05/26/25 10:30 05/26/25 09:24 Dextrose IV 05/26/25 10:44 408 mls/hr PREOP ONE Administration Lactated Ringer's 1,000 mls @ 15 mls/hr 05/26/25 08:45 05/26/25 09:24 IV 15 mls/hr .Q48H SAMIR Administration Insulin Human Lispro 1 - 6 unit 05/26/25 10:30 Insulin Lispro 100 Unit/Ml Insuln.Pen SC 05/26/25 16:30 Q4H PRN PRN BG>/= 180, SEE PROTOCOL Protocol PFSH Medical History Glaucoma Loss of hearing Wears glasses Post-menopausal Ambulates with cane Arthritis Easy bruising Back pain History of hiatal hernia History of diverticulitis Shortness of breath on exertion Non-smoker History of pain when walking Cardiology follow-up encounter History of stress test History of irregular heartbeat Chest pain Morbid obesity Bladder prolapse GERD (gastroesophageal reflux disease) Hyperlipemia Hypertension Home Medications ?Medication ?Instructions ?Recorded ?Last Taken ?Type PAIN PUMP (INFORMATIONAL USE 02/25/25 Unknown History ONLY-PATIENT HAS MORPHINE PUMP) ascorbic acid (vitamin C) 500 mg 500 mg PO DAILY 02/25/25 05/25/25 History capsule aspirin 81 mg tablet 81 mg PO QDAY 02/25/25 05/25/25 History brimonidine 0.2 % eye drops 1 drp ophthalmic (eye) BID 02/25/25 05/25/25 History duloxetine 60 mg capsule,delayed 60 mg PO QHS 02/25/25 05/25/25 History release famotidine 20 mg tablet 40 mg PO QHS 02/25/25 05/25/25 History ferrous sulfate 325 mg (65 mg 325 mg PO QDAY 02/25/25 05/25/25 History iron) tablet (FeroSul) gabapentin 800 mg tablet 800 mg PO TID 02/25/25 05/26/25 History latanoprost 0.005 % eye drops 1 drp ophthalmic (eye) QPM 02/25/25 05/25/25 History lidocaine-prilocaine 2.5 %-2.5 % 1 applic topical TID PRN pain 02/25/25 05/21/25 History topical cream lisinopril 20 1 tab PO QDAY 02/25/25 05/25/25 History mg-hydrochlorothiazide 25 mg tablet omeprazole 40 mg capsule,delayed 40 mg PO QDAY 02/25/25 05/26/25 History release simvastatin 20 mg tablet 20 mg PO QHS 02/25/25 05/25/25 History tolterodine 4 mg capsule,extended 4 mg PO QDAY 02/25/25 05/26/25 History release 24 hr calcium carbonate 1,200 mg PO DAILY 05/12/25 05/24/25 History cholecalciferol (vitamin D3) 50 50 mcg PO DAILY 05/12/25 05/25/25 History mcg (2,000 unit) capsule (Vitamin D3) folic acid 800 mcg tablet 0.8 mg PO DAILY 05/12/25 05/25/25 History lactobacillus combination no.4 3 3,000 mmu cells PO DAILY 05/12/25 05/25/25 History billion cell capsule (Probiotic) multivitamin (Daily Multi-Vitamin 1 tab PO DAILY 05/12/25 05/25/25 History tablet) zinc gluconate 50 mg tablet 50 mg PO DAILY 05/12/25 05/25/25 History Allergy/AdvReac Type Severity Reaction Status Date / Time No Known Allergies Allergy Verified 05/20/25 13:31 Surgical History History of cardiac catheterization Hx of bladder repair surgery History of esophagogastroduodenoscopy (EGD) Hx of colonoscopy Hx of total hip arthroplasty Hx of tonsillectomy H/O: hysterectomy History of hip replacement H/O spinal fusion H/O carpal tunnel repair History of knee replacement Social History Smoking Status: Never smoker Addt'l Information Additional Findings: EKG NSR Review of Systems (Anesthesia) ROS Narrative System reviewed and no additional complaints, except as documented. Physical Exam Const alert and oriented x3 Nutritional Appearance: morbidly obese Resp normal respiratory effort and normal air movement Auscultation: clear to auscultation bilaterally Cardio regular rate and regular rhythm Extremity full ROM Neuro oriented x3 and moves all extremities
[2025-05-26] MEDS: Midazolam 2 MG/2 ML Syringe IV (10:23)
[2025-05-26] MEDS: fentaNYL 100 MCG/2 ML Ampul IV (10:33)
[2025-05-26] MEDS: Lidocaine 1% (5 ml sdv) 5 ML Vial IV (10:33)
--- NOTE | 2025-05-26 10:33 | RAD_ITS ---
PROCEDURE: LUMBAR SPINE 2 OR 3 VIEWS 05/26/2025 REASON FOR EXAM: SPINAL CORD STIMULATOR PADDLE LEAD TRIAL TECHNIQUE: Procedure Code: RADSPLL Modality: DX Procedure: LUMBAR SPINE 2 OR 3 VIEWS Fluoroscopy time: 5.6 seconds Total images: 4 COMPARISON: March 30, 2025, February 25, 2025 FINDINGS: Initial images show some forceps for localization over the lower thoracic spine. Subsequent images show tissue wood gang sawyer over the lower thoracic spine. RAD/Lumbar Spine 2 or 3 Views IMPRESSION: Fluoroscopic localization and guidance. Correlate with procedural note. Reading Location: [id number]
[2025-05-26] MEDS: Cefazolin 1 GM/5 ML Vial 2 GM IV (10:35)
[2025-05-26] MEDS: Lactated Ringers 3,000 ML 3000 ML IV (11:58)
[2025-05-26] MEDS: TRANEXAMIC ACID 1,000 MG/10 ML ML 2000 MG IV (12:15)
--- NOTE | 2025-05-26 13:04 | PCM.OPRPT ---
Procedures Musculoskeletal [id number]: Other Procedure See Report Operative Report (Standard) Operative Information Date of Procedure: 05/26/25 Pre-Operative Diagnosis: Chronic back pain, prior L1-4 fusion, prior failed attempts at spinal cord stimulator placement Post-Operative Diagnosis: Same Surgery/Procedure Performed: T8-10 laminectomy, aborted spinal cord stimulator paddle lead placement, incidental dural leak repair transportation associate: Yes Senior Business Development Manager: Aretha Barton Tasks completed by or first assist registered nurse: Closing, Removing tissue, Hemostasis: Electrocautery and Retracting Type of Anesthesia: General RN Documented Start/Stop Times: Operation Date: 05/26/25 10:30 Case Time Into Pre-Op 05/26/25 08:32 Anesthesia Start 05/26/25 10:23 Into Room 05/26/25 10:23 Procedure Start 05/26/25 10:57 Procedure Start Time: :57 Procedure Stop Time: 13:05 Select all DRAINS/GRAFTS/IMPLANTS that apply: Graft Graft details: Dural patch graft Estimated Blood Loss: 100 cc Specimen collected: No Description of surgery: Preoperative diagnosis: Chronic back pain, prior L1-4 fusion, prior failed attempts at spinal cord stimulator placement Postoperative diagnosis: Same Name of procedure: T8-10 laminectomy, aborted spinal cord stimulator paddle lead placement, incidental dural leak repair with dural graft, CPT codes-10827, 89461. Anesthesia: Gen. endotracheal Estimated blood loss: 100 mL Complications: None Instrumentation used: Aborted due to dural leak. Indications: The patient is a pleasant 74-year-old lady who presented to us with symptoms of chronic low back pain, prior L1-4 fusion, prior failed attempts at percutaneous spinal cord stimulator placement. Patient requested surgical placement of permanent spinal cord stimulator lead. Plan was to do a staged procedure with for stage being a paddle trial which if successful to do permanent placement. All risks and benefits of the procedure were explained to the patient. The risks include but are not limited to infection, bleeding, injury to nerves and vessels, dural leak, need for further procedures, worsening lumbar pathology with potential neurologic symptoms, persistent pain, technical issues with spinal cord stimulator, hematoma, migration of lead, skin impingement from subcutaneous pulse generator, worsening deformity, DVT, pulmonary embolism, cardiopulmonary event etc. patient understands all the risks and benefits and agrees to the procedure. Procedure: The patient was identified in the preoperative suite using unique patient identifiers. Skin was marked consent was taken and all questions were answered. The patient was then brought back to the operative room and a timeout was performed. General endotracheal anesthesia was given. Intraoperative neuro monitoring leads were applied. The patient was carefully positioned prone on a standard OR table with a Drew frame. Back was prepped and draped in usual fashion. X-rays were performed to identify level of incision focused at the T9-10 interspace. A posterior midline incision was carried out. Bovie was utilized to go down to the spinous processes. Subperiosteal dissection over the lamina was performed. A Dolores clamp was then placed on the left presumed T9 transverse process, and C-arm AP view was taken. This confirmed the level by counting up from last rib. Laminotomy was performed from the left-sided T9-10 interspace. Upgoing curettes were utilized to detach the ligamentum flavum. Treasure was passed into the epidural space. Significant adhesions were felt but these were bluntly released. Trial spinal cord stimulator paddle lead instrument was then passed carefully. AP x-ray confirmed good positioning. However, when the trial paddle was removed, clear fluid was visible suggestive of CSF leak. Since the origin of the leak could not be identified, decision was made to do a complete laminectomy of T9. T9 spinous process was removed with the help of large rongeur. Bur was utilized to thin down a rectangular portion of the lamina. T9 laminectomy was then performed. Significant epidural adhesions were noticed and the rent in the dura was identified approximately at the T9 pedicle level. There was a longitudinal rent about 1 inch. T8-9 interspace was then exposed and the laminectomy was extended up to inferior edge of T8 lamina. This identified the superior end of the dural rent. Hemostasis was achieved with Floseal. Because of the pulsating dura, decision was made to not to attempt suture repair of the dura. Dural patch of 1 x 1 inch was cut into 2 rectangle's of half by 1 inch each. These were placed longitudinally over the dura covering the rent throughout the T8-10 laminectomy bed. A larger portion of subcutaneous fat was then harvested and placed over this dural patch and Tisseel was applied across the laminectomy bed. Because of the extensive dural rent, decision was made to abort the placement of the spinal cord stimulator paddle lead. Adequate control of the CSF leak was obtained and confirmed. Small piece of Gelfoam was kept outside of the lamina, covering the laminectomy bed. Closure was done in layers with 0 Vicryl interrupted for the deep fascia augmented with #1 strata fix, 2-0 Vicryl for subcutaneous tissue and 3-0 nylon for skin. Wound was dressed with 4 x 4 gauze and Tegaderm. the patient was then woken up from anesthesia. Patient was taken to PACU for monitoring in stable condition. Patient tolerated the procedure well, however was complicated with incidental longitudinal dural tear. This was repaired with the help of dural graft and fat graft along with the seal. Blood loss was 100 ml. No instrumentation was utilized. I was scrubbed for the entire procedure and performed the surgery myself. Section Laborer Aretha Barton PA-C. My physician assistant counsel was a vital part of this case. They were important in appropriate retraction during the case, and protection of soft tissues during the procedure. Their intimate knowledge of the case and my steps aided in safe and expedient completion of the procedure as well as appropriate position of the patient during the surgery. They were also vital in assisting with closure under my direct supervision. Surgical Findings: See operative note Complications Complications: Yes Complication Details: Dural leak, repaired with dural graft and Tisseel
--- NOTE | 2025-05-26 13:13 | PCM.POST.ANE ---
Anesthesia: Postop Eval I Current Vital Signs Temperature: 97.4 F Pulse Rate: 92 Blood Pressure: 126/87 Respiratory Rate: 18 Pulse Ox: 96 Assessment Airway patent: Yes Spontaneous unlabored respirations: Yes nausea: No Vomiting: No Anesthesia Complication: No Fluid Hydration Crystalloid volume administer (ml): 3,000 Total IV fluid infused: 3,000 Progress Note Anesthesia document: Postop Eval 1 completed: Yes
--- NOTE | 2025-05-26 15:09 | POSTOPAN2_ITS ---
Anesthesia Postop Eval I Sum Postop Eval Completion status Anesthesia document: Postop Eval 1 completed: Yes Anesthesia Postop Eval I Summary Anesthesia Postop Eval I Summary: Anesthesia Postop Eval I: Assessment Summary Airway patent Yes 05/26/25 13:13 SUPERVISOR FORMING AND TEMPERING.CSIR Spontaneous unlabored Yes 05/26/25 13:13 SUPERVISOR FORMING AND TEMPERING.CSIR respirations Mental status nausea No 05/26/25 13:13 SUPERVISOR FORMING AND TEMPERING.CSIR Vomiting No 05/26/25 13:13 SUPERVISOR FORMING AND TEMPERING.CSIR Anesthesia Postop Eval I: Fluid Summary Crystalloid volume administer 3,000 05/26/25 13:13 SUPERVISOR FORMING AND TEMPERING.CSIR (ml) Colloids volume administered ( ml) Blood Product volume administered (ml) Total IV fluid infused 3,000 05/26/25 13:13 SUPERVISOR FORMING AND TEMPERING.CSIR Anesthesia Postop Eval I: Summary Notes Anesthesia Complication No 05/26/25 13:13 SUPERVISOR FORMING AND TEMPERING.CSIR Anesthesia Complication Comment: Post-operative progress note Anesthesia: Postop Eval II Evaluation Mental status: Awake and Calm Pain Level: 2 nausea: No Vomiting: No Complications Anesthesia Complication: No
--- NOTE | 2025-05-26 15:09 | PCM.POSTANE2 ---
Anesthesia Postop Eval I Sum Postop Eval Completion status Anesthesia document: Postop Eval 1 completed: Yes Anesthesia Postop Eval I Summary Anesthesia Postop Eval I Summary: Anesthesia Postop Eval I: Assessment Summary Airway patent Yes 05/26/25 13:13 RESEARCH WORKER [email or web address].[email or web address] Spontaneous unlabored Yes 05/26/25 13:13 RESEARCH WORKER KITCHEN.CSIR respirations Mental status nausea No 05/26/25 13:13 RESEARCH WORKER KITCHEN.CSIR Vomiting No 05/26/25 13:13 RESEARCH WORKER KITCHEN.CSIR Anesthesia Postop Eval I: Fluid Summary Crystalloid volume administer 3,000 05/26/25 13:13 RESEARCH WORKER KITCHEN.CSIR (ml) Colloids volume administered ( ml) Blood Product volume administered (ml) Total IV fluid infused 3,000 05/26/25 13:13 RESEARCH WORKER KITCHEN.CSIR Anesthesia Postop Eval I: Summary Notes Anesthesia Complication No 05/26/25 13:13 RESEARCH WORKER KITCHEN.CSIR Anesthesia Complication Comment: Post-operative progress note Anesthesia: Postop Eval II Evaluation Mental status: Awake and Calm Pain Level: 2 nausea: No Vomiting: No Complications Anesthesia Complication: No
--- NOTE | 2025-05-26 16:12 | CON.PCM.HO_ITS ---
Assessment & Plan Assessment/Plan (1) Chronic back pain: QUALIFIERS: Back pain location: low back pain Back pain laterality: bilateral Sciatica presence: without sciatica Qualified Code(s): M 54.50 - Low back pain, unspecified; G89.29 - Other chronic pain (2) Status post laminectomy: PLAN: Plan Patient is a 74-year-old female who presented [facility] on 05/26/2025 for planned orthopedic spine procedure. Medicine consulted postoperatively for medical management. 1. Chronic back pain with prior L1-4 fusion ?Orthopedic surgery primary. S/p T8-10 laminectomy procedure with incidental dural leak repair done with Dr. Springer on 05/26. Notably patient has history of prior failed attempt at spinal cord stimulator placement and per Dr. Springer's procedure note, a spinal cord stimulator paddle lead placement was aborted during the procedure. Patient tolerated procedure well. Postoperative pain control, DVT prophylaxis and further management per orthopedics. Follow-up a.m. CBC and BMP. PT/OT/case management consulted. 2. Hypertension/hyperlipidemia ? Patient normotensive in the 120s over 80s postoperatively. Okay to resume home lisinopril?hydrochlorothiazide with hold parameters in place. Continue home statin. 3. GERD ? Continue home PPI. 4. Overactive bladder ? Continue home tolterodine. 5. Class III obesity ? BMI 44 on admit. Complicates hospital course and care. DVT prophylaxis: Will defer to orthopedics Total clinical time spent by myself addressing the patient's medical issues, reviewing all the data, and collaborating with patient's care team: 37 minutes. HPI Consult Data Date of Consult: 05/26/25 HPI Narrative Reason for Consultation: Postoperative medical management HPI Narrative: MICHAEL SANDERS, is a 74 F who presented to [facility] on 05/26/2025 for planned orthopedic procedure. Medicine consulted postoperatively for medical management. Medical history significant for chronic back pain with prior L1-4 fusion and prior failed attempted spinal cord stimulator placement. Patient had T8-10 laminectomy with incidental dural leak repair done with Dr. Springer today. Spinal cord stimulator paddle lead placement was apparently attempted but aborted during the procedure. Patient tolerated the procedure well, no intraoperative complications noted. I saw the patient at bedside later this afternoon postoperatively. Patient was reporting mild mid back discomfort near the incision site at rest with some worsening with movement. She was given a dose of Tylenol and gabapentin thus far and states these have been mildly helpful for her. She denies any other acute concerns currently. FOR[facility]LY [facility] Medical History Glaucoma Loss of hearing Wears glasses Post-menopausal Ambulates with cane Arthritis Easy bruising Back pain History of hiatal hernia History of diverticulitis Shortness of breath on exertion Non-smoker History of pain when walking Cardiology follow-up encounter History of stress test History of irregular heartbeat Chest pain Morbid obesity Bladder prolapse GERD (gastroesophageal reflux disease) Hyperlipemia Hypertension Home Medications ?Medication ?Instructions ?Recorded ?Last Taken ?Type PAIN PUMP (INFORMATIONAL USE 02/25/25 Unknown Hist ory ONLY-PATIENT HAS MORPHINE PUMP) ascorbic acid (vitamin C) 500 mg 500 mg PO DAILY 02/2505/25/25 History capsule aspirin 81 mg tablet 81 mg PO QDAY 02/25/2505/25 History brimonidine 0.2 % eye drops 1 drp ophthalmic (eye) BID 02/25/25 05/25/25 History duloxetine 60 mg capsule,delayed 60 mg PO QHS 02/25/25 05/25/25 History release famotidine 20 mg tablet 40 mg PO QHS 02/25/25 History ferrous sulfate 325 mg (65 mg 325 mg PO QDAY 02/25/25 05/25/25 History iron) tablet (FeroSul) gabapentin 800 mg tablet 800 mg PO TID 02/25/2505/26 History latanoprost 0.005 % eye drops 1 drp ophthalmic (eye) Q PM 02/25/25 05/25/25 History lidocaine-prilocaine 2.5 %-2.5 % 1 applic topical TID PRN pain 02/25/25 05/21/25 History topical cream lisinopril 20 1 tab PO QDAY 02/25/2505/25 History mg-hydrochlorothiazide 25 mg tablet omeprazole 40 mg capsule,delayed 40 mg PO QDAY 5 05/26/25 History release simvastatin 20 mg tablet 20 mg PO QHS 02/25/25 History tolterodine 4 mg capsule,extended 4 mg PO QDAY 5 05/26/25 History release 24 hr calcium carbonate 1,200 mg PO DAILY 05/12/25 0 05/24/25 History cholecalciferol (vitamin D3) 50 50 mcg PO DAILY 05/25/25 History mcg (2,000 unit) capsule (Vitamin D3) folic acid 800 mcg tablet 0.8 mg PO DAILY 05/12/25 History lactobacillus combination no.4 3 3,000 mmu cells PO DA SONYA 05/12/25 05/25/25 History billion cell capsule (Probiotic) multivitamin (Daily Multi-Vitamin 1 tab PO DAILY 05/1205/25/25 History tablet) zinc gluconate 50 mg tablet 50 mg PO DAILY 05/12/25 History Allergy/AdvReac Type Severity Reaction Status Date / Time No Known Allergies Allergy Verified 05/20/25 13:31 Surgical History History of cardiac catheterization Hx of bladder repair surgery History of esophagogastroduodenoscopy (EGD) Hx of colonoscopy Hx of total hip arthroplasty Hx of tonsillectomy H/O: hysterectomy History of hip replacement H/O spinal fusion H/O carpal tunnel repair History of knee replacement Social History Smoking Status: Never smoker ROS Constitutional Constitutional: Denies chills, fatigue or fever(s) Cardiovascular Cardiovascular: Denies chest pain Respiratory/Chest Respiratory/Chest: Denies shortness of breath at rest Gastrointestinal Gastrointestinal: Denies abdominal pain Musculoskeletal Musculoskeletal: Reports back pain Neurologic Neurologic: Denies dizziness, focal weakness, headache(s), numbness or tingling Physical Exam Const alert, oriented x3 and no apparent distress Constitutional Narrative: Pleasant elderly female, class III obesity, mildly fatigued appearing, otherwise sitting back fairly comfortably in bedside chair, conversing normally, in no acute distress. General Appearance: cooperative and comfortable HEENT normocephalic, head/scalp atraumatic, hearing grossly normal bilaterally, nasal mucous membranes and turbinates normal and moist oral mucous membranes Eyes PERRL, EOMs intact bilaterally and conjunctivae normal Neck full ROM Chest inspection of chest normal Resp normal respiratory effort, normal air movement, no use of accessory muscles and clear to auscultation bilaterally Cardio regular rate, regular rhythm, no murmurs and peripheral pulses 2+ throughout GI normal to inspection, nondistended, normoactive bowel sounds, soft to palpation, non-tender and non-distended Back/Spine Back/Spine Narrative: Surgical dressing noted over incision site on mid back, appears clean and dry. Extremity normal to inspection, full ROM and no pedal edema Skin no rashes or lesions noted Neuro moves all extremities and no focal motor deficits Psych mental status grossly normal Lab / Micro Data 05/13/25 13:04 05/13/25 13:04 Labs: Laboratory Results - last 24 hr 05/26/25 09:12: PT 12.4, INR 0.9, APTT 25.1 05/26/25 09:30: POC Glucose 114 H Imaging Radiology Impression Lumbar Spine X-Ray 05/26/25 10:33 IMPRESSION: Fluoroscopic localization and guidance. Correlate with procedural note. Reading Location: [id number] Charges/Coding Visit Charges Inpatient E&M: 14215 Subs Hosp L2
[2025-05-26] MEDS: Ensure Surgery 237 ML LIQUID PO (17:11)
[2025-05-26] MEDS: Cefazolin 2 GM in 0.9% Normal Saline (100mL Bag) 100 ML IV (18:32)
[2025-05-26] MEDS: Latanoprost 0.005% 1 Bottle 1 DRP OPHTHALMIC (21:01)
[2025-05-26] MEDS: Senna/Docusate Sodium 1 Tablet 2 TABLET PO (21:04)
[2025-05-26] MEDS: 0.9% Saline Lock 10 ML Syringe IV (21:17)
[2025-05-27] VITALS (8 sets, daily range): BP systolic 88–110; BP diastolic 56–69; PULSE 90–110; RESP 16–18; TEMP 36.4–37.1; O2SAT 92–96; BMI 44.6
[2025-05-27] MEDS: Cefazolin 2 GM in 0.9% Normal Saline (100mL Bag) 100 ML IV (02:48)
[2025-05-27] MEDS: 0.9% Saline Lock 10 ML Syringe IV ×4 (03:35→18:02)
[2025-05-27 06:03] LABS: Hematocrit 35.7 % (37-47); Hemoglobin 12.2 g/dL (12.0-15.0); Immature Granulocytes Count 0.080 X10^3/uL (0.0-0.0); Mean Corp Hgb Conc 34.2 g/dL (32-36); Mean Corpuscular Volume 93.9 fL (81-99); Mean Platelet Vol. 9.0 fl (6.2-12.0); NRBC Flagged by Analyzer 0 % (0-5); Platelet Count 186 K/mm3 (150-450); RBC Distribution Width CV 12.0 % (11.6-14.6); RBC Distribution Width SD 41.4 fl (35.1-43.9); Red Blood Count 3.80 M/mm3 (4.2-5.4); White Blood Count 15.0 K/mm3 (4.4-11.0)
[2025-05-27] MEDS: 0.9% Normal Saline (500mL Bag) 500 ML 999 ML IV (06:42)
[2025-05-27 06:48] LABS: Anion Gap 10 (5-15); BUN 16 mg/dL (4-19); BUN/Creat Ratio 23.3 RATIO (10-20); Calcium,Total 8.4 mg/dL (7.6-11.0); Carbon Dioxide 26.3 mmol/L (21.0-32.0); Chloride 103 mmol/L (98-108); Estimated Creatinine Clearance 65.71 ml/min (50-250); Glucose 138 mg/dL (70-99); Potassium 4.3 mmol/L (3.3-5.1)
[2025-05-27] MEDS: Ensure Surgery 237 ML LIQUID PO ×2 (08:16→12:13)
[2025-05-27] MEDS: Zinc Sulfate 50 mg zinc (220 mg) ORAL capsule PO (08:17)
[2025-05-27] MEDS: Senna/Docusate Sodium 1 Tablet 2 TABLET PO ×2 (08:18→23:05)
[2025-05-27] MEDS: BRIMONIDINE 0.2% 5ML BOTTLE 1 DRP OPHTHALMIC (10:47)
[2025-05-27] MEDS: Tolterodine Tartrate 4 MG CAP.SA PO (10:48)
--- NOTE | 2025-05-27 12:25 | PN.ORTHO_ITS ---
Subjective Subjective Post op day 1 T8-10 laminectomy and dura leak following an attempted spinal cord stimulator placement. The patient was seen at the bedside today. The patient's head of the bed was kept elevated to 70 to 90 degrees overnight. At 6 AM they lowered the head of the bed to 30 degrees. And then at 8 AM they lowered it flat. Patient denies any headaches. She denies any leg pain, numbness, tingling. PT/OT has seen the patient who is cleared her for home discharge. Seen with Dr. Springer. Objective Data Objective Data Vital Signs: Vital Signs Temp Pulse Resp BP Pulse Ox O2 Del Method O2 Flow Rate 97.9 F 94 16 94/56 L 94 Room Air 4 05/27/25 07:55 05/27/25 07:55 05/27/25 07:55 05/27/25 07:55 05/27/25 07:55 05/27/25 08:02 05/26/25 14:45 Oxygen Flow Rate (L/min) 4 Oxygen Delivery Method Room Air Weight: 227 lb 1.218 oz Body Mass Index (BMI) 44.6 Intake & Output: Intake and Output for Last 24 Hours 05/25/25 05/26/25 05/27/25 23:59 23:59 23:59 Intake Total 3012 / 3012 885.25 / 885.25 Output Total 450 / 450 Balance 2562 / 2562 885.25 / 885.25 Lab / Micro Data 05/27/25 05:44 05/27/25 05:44 Labs: Laboratory Results - last 24 hr 05/27/25 05:44: WBC 15.0 H, RBC 3.80 L, Hgb 12.2, Hct 35.7 L, MCV 93.9, MCH 32.1 H, MCHC 34.2, RDW Std Deviation 41.4, RDW Coeff of Farshad 12.0, Plt Count 186, MPV 9.0, Immature Gran % (Auto) 0.500, Neut % (Auto) 80.7 H, Lymph % (Auto) 11.4 L, [place] % (Auto) 7.3, Eos % (Auto) 0.0, Baso % (Auto) 0.1, Absolute Neuts (auto) 12.1 H, Absolute Lymphs (auto) 1.71, Nucleated RBC % 0, Sodium 139, Potassium 4.3, Chloride 103, Carbon Dioxide 26.3, Anion Gap 10, BUN 16, Creatinine 0.70, Estim Creat Clear Calc 65.71, Est GFR (MDRD) Non-Af 90, BUN/Creatinine Ratio 23.3 H, Glucose 138 H, Calcium 8.4 Micro: Microbiology 05/13/25 13:04 Swab (Method) Nasal Screen MRSA/MSSA - Final Radiography Diagnostic Testing: Radiology Impression Lumbar Spine X-Ray 05/26/25 10:33 IMPRESSION: Fluoroscopic localization and guidance. Correlate with procedural note. Reading Location: [facility] Physical Exam Narrative Neurological examination of the lower extremity shows 5X5 power. Normal sensation across all dermatomes. Physical exam of the back shows some mild incision discharge. Const alert, oriented x3 and no apparent distress Assessment & Plan Assessment/Plan (1) Status post laminectomy: PLAN: Plan Postop day 1 T8-10 laminectomy, aborted spinal cord stimulator placement, incidental dural leak. The patient is doing well postoperatively with very minimal pain. The patient denies any headaches. The plan is for home discharge today. Home-going meds include [place], meloxicam, methocarbamol, senna. OARRS reviewed. Reviewed restrictions of no heavy bending, lifting, twisting. Reviewed and educated on the use of the incentive spirometer. She will follow-up in the clinic in 2 weeks for suture removal. Patient is in agreement to the plan.
[2025-05-27] MEDS: 0.9% Normal Saline (1000mL) 1,000 ML 125 ML IV ×2 (12:50→20:34)
--- NOTE | 2025-05-27 13:09 | DCINST_ITS ---
Discharge Instructions DC O2, CPAP, BIPAP needs Home O2 Discharge instructions: No Follow Up Care Test Results: Test results from this visit will be discussed in further detail at your follow- up appointment, if applicable. Discharge Plan Admission Admit Date/Time: 05/26/25 12:56 Attending Provider: Jose Juan Springer Primary Care Provider: Luda Fabian Consulting Providers: Jennifer Delaney Instructions Patient Instructions: Laminectomy Dc Additional Instructions / Restrictions: Keep Tegaderm and gauze clean and dry. If Tegaderm is intact, okay to shower. After 5 days remove Tegaderm and gauze and cover with a Band-Aid. Replace Band- Aid daily thereafter. No bending lifting or twisting. Follow-up in clinic in 2 weeks. Discharge Orders/Prescriptions Prescriptions: New acetaminophen 500 mg Tablet 500 mg PO Q6H Qty: 30 0RF hydrocodone-acetaminophen 5-325 mg Tablet 1 tab PO Q6H PRN (Reason: pain) 5 Days Qty: 20 0RF meloxicam 15 mg Tablet 15 mg PO DAILY Qty: 30 0RF Rx Instructions: Take once a day methocarbamol 500 mg Tablet 750 mg PO TID PRN (Reason: Pain/spasms) Qty: 30 0RF sennosides-docusate sodium [Stimulant Laxative Plus] 8.6-50 mg Tablet 2 tab PO BID PRN (Reason: constipation) Qty: 14 0RF Continued (DME) PAIN PUMP (INFORMATIONAL USE ONLY-PATIENT HAS MORPHINE PUMP) Prefilled Pump [place] See Rx Instructions .Route Rx Instructions: As directed aspirin 81 mg tablet 81 mg PO QDAY omeprazole 40 mg capsule,delayed release(DR/EC) 40 mg PO QDAY tolterodine 4 mg capsule,extended release 24hr 4 mg PO QDAY duloxetine 60 mg capsule,delayed release(DR/EC) 60 mg PO QHS famotidine 20 mg tablet 40 mg PO QHS latanoprost 0.005 % drops 1 drp ophthalmic (eye) QPM simvastatin 20 mg tablet 20 mg PO QHS brimonidine 0.2 % drops 1 drp ophthalmic (eye) BID lidocaine-prilocaine 2.5-2.5 % cream 1 applic topical TID PRN (Reason: pain) lisinopril-hydrochlorothiazide 20-25 mg tablet 1 tab PO QDAY gabapentin 800 mg tablet 800 mg PO TID ascorbic acid (vitamin C) 500 mg capsule 500 mg PO DAILY ferrous sulfate [FeroSul] 325 mg (65 mg iron) tablet 325 mg PO QDAY folic acid 800 mcg tablet 0.8 mg PO DAILY calcium carbonate 600 mg calcium (1,500 mg) tablet 1,200 mg PO DAILY multivitamin [Daily Multi-Vitamin] Tablet 1 tab PO DAILY cholecalciferol (vitamin D3) [Vitamin D3] 50 mcg (2,000 unit) capsule 50 mcg PO DAILY zinc gluconate 50 mg tablet 50 mg PO DAILY Probiotic 3 billion cell capsule 3,000 mmu cells PO DAILY Rx Instructions: administer with a meal Referrals / Follow Up: Luda Fabian DO [Primary Care Provider, Internal Medicine] Disposition Disposition (needs filled in before D/C Order can be placed): Home, Self Care
--- NOTE | 2025-05-27 13:46 | CASEMGMT ---
ALLEN Met with patient to complete ALLEN form. ALLEN form and its content were verbally explained and patient's questions were answered to the best of my ability.? Patient voiced understanding and signed ALLEN form.? Patient provided a copy of signed ALLEN form and original placed in patient's chart.? Patient had no further questions. Treasure Noel, Discharge Planning Asst
--- NOTE | 2025-05-27 15:58 | PN_ITS ---
Subjective Subjective Patient seen and examined. She was seen with her nurse by her bedside. She complained of some mild pain in her back at the surgical site but had no other complaints. She denied any dizziness or lightheadedness. Patient's blood pressure has been running on the low side in the 90s systolic. Blood pressure meds are therefore on hold. Review of systems otherwise negative. Objective Data Objective Data Vital Signs: Vital Signs Temp Pulse Resp BP Pulse Ox O2 Del Method O2 Flow Rate 97.9 F 110 H 16 90/59 L 96 Room Air 4 05/27/25 07:55 05/27/25 15:06 05/27/25 15:06 05/27/25 15:06 05/27/25 15:06 05/27/25 15:06 05/26/25 14:45 Oxygen Flow Rate (L/min) 4 Oxygen Delivery Method Room Air Weight: 227 lb 1.218 oz Body Mass Index (BMI) 44.6 Intake & Output: Intake and Output for Last 24 Hours 05/25/25 05/26/25 05/27/25 23:59 23:59 23:59 Intake Total 3012 / 3012 1335.25 / 1335.25 Output Total 450 / 450 Balance 2562 / 2562 1335.25 / 1335.25 Lab / Micro Data 05/27/25 05:44 05/27/25 05:44 Labs: Laboratory Results - last 24 hr 05/27/25 05:44: WBC 15.0 H, RBC 3.80 L, Hgb 12.2, Hct 35.7 L, MCV 93.9, MCH 32.1 H, MCHC 34.2, RDW Std Deviation 41.4, RDW Coeff of [place]arsh[place] 12.0, Plt Count 186, MPV 9.0, Immature Gran % (Auto) 0.500, Neut % (Auto) 80.7 H, Lymph % (Auto) 11.4 L, [place] % (Auto) 7.3, Eos % (Auto) 0.0, Baso % (Auto) 0.1, Absolute Neuts (auto) 12.1 H, Absolute Lymphs (auto) 1.71, Nucleated RBC % 0, Sodium 139, Potassium 4.3, Chloride 103, Carbon Dioxide 26.3, Anion Gap 10, BUN 16, Creatinine 0.70, Estim Creat Clear Calc 65.71, Est GFR (MDRD) Non-Af 90, BUN/Creatinine Ratio 23.3 H, Glucose 138 H, Calcium 8.4 Micro: Microbiology 05/13/25 13:04 Swab (Method) Nasal Screen MRSA/MSSA - Final Physical Exam Const alert, oriented x3 and no apparent distress Constitutional Narrative: Class III obesity. General Appearance: cooperative and well developed HEENT normocephalic, head/scalp atraumatic, moist oral mucous membranes and oropharynx normal Eyes EOMs intact bilaterally Neck no lymphadenopathy, supple and no JVD Lymph Lymphatic: no lymphedema noted Resp Resp Narrative: Mildly diminished breath sounds bibasilarly. No wheezes or crackles. On room air. Cardio regular rhythm, S1 normal heart sound, S2 normal heart sound and no murmurs Cardio Narrative: Mildly tachycardic. GI normal to inspection, nondistended, normoactive bowel sounds, soft to palpation, non-tender and non-distended Extremity normal capillary refill, no clubbing, cyanosis or edema and no calf tenderness General Extremity: no tenderness to palpation of joints or extremities Skin Skin Narrative: Intact dressing over mid back. No redness or tenderness. Neuro CN's II-XII intact bilaterally, no focal motor deficits and no sensory deficits noted Motor Exam: strength 5/5 throughout and general weakness Psych cooperative Appearance: appropriate Assessment & Plan Assessment/Plan (1) Status post laminectomy: (2) Hypotension: PLAN: Plan #Hypotension * Patient's blood pressure has been running low in the 90s systolic. Her blood pressure before surgery was in the 120s 130s systolic. * She does see her PCP told her that her blood pressure was on the lower side. * She does take lisinopril hydrochlorothiazide at home. * BP meds held. Patient being hydrated with IV fluid normal saline at 125 cc/h for 2 bags. * Blood pressure still remains low then will consider starting on midodrine; blood pressure started to remain low even with IV fluid hydration and so patient started on midodrine 10 mg 3 times daily * Will get a stat D-dimer also. In light of patient's class III obesity and recent surgery she is at a high risk for DVT. She is also tachycardic though I think this can be explained by her hypotension. We D-dimer is elevated we will get a stat CTA of the chest. * #Chronic back pain in the setting of prior L1-L4 fusion s/p T8-T10 laminectomy * Today's postop day 1. Had had a prior failed attempt at spinal cord stimulator placement. * Pain is well-controlled. Pain management as per orthopedic surgery the primary service. * #Leukocytosis: * WBCs 15 today. * This is likely reactive in light of the recent surgery. No clear evidence of infection. * Denies any urinary symptoms. * Will monitor closely. #GERD: On PPI #History of overactive bladder: On tolterodine #Class III obesity: BMI is 44.6. Complicates acute care, expected recovery and prognosis. #Hyperlipidemia: On statin #Hypertension: Lisinopril and hydrochlorothiazide on hold due to blood pressure running low. DVT prophylaxis: SCDs. No anticoagulation due to recent spine surgery. Charges/Coding Visit Charges Inpatient E&M: 76664 Subs Hosp L2
[2025-05-27 19:13] LABS: D-Dimer Quantitative (DVT/PE) 0.63 FEU/ug/m (0.27-0.49)
--- OUTSIDE RECORDS SUMMARY | 2025-05-27 22:33 | XMS RPT_ITS | CCD ---
Author Organization [facility] Inform ion [facility] Care Team Providers Care Painter And Decorator Name Role Phone JORI DEWITT Attending Unavailable RENATEJORI CHIRINOS Primary Care Unavailable RENATEJORI CHIRINOS Admitting Unavailable RENATEJORI CHIRINOS Attending Unavailable RENATEJORI FLORES Primary Care Unavailable RENATEJORI CHIRINOS Admitting Unavailable Unavailable Primary Care Provider Unavailgisel ANN DO, DR MARIN Primary Care Physician Julia Busby Unavailable Unavailable Katrin Barba Unavailable Unavailable Laura Claudio Unavailable Unavailable Luda Ann DO Primary Care Provider Luda Ann DO Primary Care Provider Luda Ann DO Primary Care Provider Luda nAn DO Primary Care Provider Luda Ann DO Primary Care Provider BETZAIDA GALAN, DR GARRISON [...] MARISSA GALAN, DR MARIN Primary Care Unavailable ANKITA KIM CNP Attending Unavailable PROVIDER, UNKNOWN Admitting Unavailable PROVIDER, UNKNOWN Attending Unavailable MARISSA, LUDA L Primary Care [...] able MARISSA, LUDA L Primary Care Unavailable SURMITMAHAMED TRUJILLO Attending Unavail able MARISSA, LUDA L [...] Care Unavailable VALERO, SCOTT Referring Unavailable MARISSA, LUAD L Primary Care Unavailable KARY CHASE Referring Unavailab le MARISSA, LUDA L Primary Care Unavailable VALERO, SCOTT Referring Unavailable MARISSA, LUDA L Primary Care Unavailable VALERO, SCOTT Referring Unavailable MARISSA, LUDA L Primary Care Unavailable Dr. Jose Juan Springer MD Attending Provider Dr. Rodriguez Coleman MD Attending Provider Dr. Jose Juan Springer MD Referring Provider Dr. Luda Ann DO Primary Care Provider Dr. Luda Ann DO Referring Provider Dr. Jose Juan Springer MD Attending Physician Dr. Rodriguez Coleman MD Attending Physician Dr. Luda Ann DO Primary Care Physician Jose Juan Springer Attending Unavailable Marissa, Luda Referring Unavailable Marissa, Luda Primary Care Unavailable Marissa, Luda Primary Care Unavailable Springer, Jose Juan Attending Unavailable Springer, Jose Juan Admitting Unavailable Springer, Jose Juan Referring Unavailable Koram, Jennifer Matilda Consulting Unavailable Marissa, Luda Primary Care Unavailable Aretha Barton Attending Unavailable Springer, Jose Juan Consulting Unavailable Koram, Jennifer Matilda Attending Unavailable Gian, Jose Juan Attending Unavailable Rodriguez Coleman Attending Unavailable Springer, Jose Juan Attending Unavailable Springer, Jose Juan Consulting Unavailable Springer, Jose Juan Referring Unavailable Marissa, Luda Primary Care Unavailable Jhonny Sultana Attending Unavailable Jhonny Sultana Consulting Unavailable Marissa, Luda Referring Unavailable Marissa, Luda Primary Care Unavailable Springer, Jose Juan Attending Unavailable Springer, Jose Juan Attending Unavailable Marissa, Luda Referring Unavailable Marissa, Luda Primary Care Unavailable Springer, Jose Juan Attending Unavailable Springer, Jose Juan Referring Unavailable Marissa, Luda Primary Care Unavailable Springer, Jose Juan Attending Unavailable Medications Current Medications Medication Drug Class(es) Dates Sig (Normalized) Sig (Original) Pain Pump (Informational Use Only-Patient Has Morphine Pump) prefilled pump reservoir (5 sources) Start: 02-25-2025 Pain Pump (Informational Use Only-Patient Has Morphine Pump) prefilled pump reservoir Active 0 .Route February 25, 2025 12:00am As directed Start: 02-25-2025 Pain Pump ( Informational Use Only-Patient Has Morphine Pump) prefilled pump [...] Barbiturate, Central Nervous System Stimulant, Methylxanthine Start: 023 End: 023 take 1 capsule by mouth every four hours as needed acetaminophen 300 mg-caffeine 40 mg-butalbital 50 mg (FIORICET) per capsule Take 1 capsule by mouth every 4 hours as needed for up to 7 days. 28 capsule 0 09/07/2022 09/14/2022 Active Comment on above: Take 1 capsule by [facility] every 4 hours as needed for up to 7 days. acetaminophen 325 mg / HYDROcodone bitartrate 7.5 mg oral tablet (2 sources) Opioid Agonist Start: 022 take 1 tablet by mouth three times daily as needed for pain acetaminophen-hydroc odone 325 mg-7.5 mg oral tablet TAKE 1 TABLET BY MOUTH THREE TIMES DAILY NEEDED FOR PAIN Start Date: 09/14/21 Status: Ordered ascorbic acid 500 mg oral capsule (20 sources) Vitamin C Start: 025 take 1 capsule by mouth once daily Ascorbic Acid (Vitamin C) 500 mg capsule Active 500 mg PO DAILY February 25, 2025 12:00am Complies with drug therapy take 1 tablet by mouth once jayne [...] mg PO daily February 25, 2025 12:00am Complies with drug therapy Start: 11-21-2015 [facility] in the morning aspirin, enteric [...] TWICE A DAY February 25, 2025 12:00am Complies with drug therapy Start: 02-14-2022 take 1 drop(s) into the [...] carbonate 1500 mg oral tablet (20 sources) Start: 05-12-2025 take 1 tablet by mouth once daily Calcium Carbonate 600 mg calcium (1,500 mg) tablet Active 1200 mg PO DAILY May 12, 2025 12:00am Complies with drug therapy calcium carbonat e (CALTRATE) 600 mg calcium (1,500 mg) tab Take by mouth every 24 hours. Active Comment on above: Take by mouth every 24 hours. cephalexin 500 mg oral capsule (2 sources) Cephalosporin Antibacterial Start: 023 End: 023 take 1 capsule by mouth twice daily cephALEXin (KEFLEX) 500 mg capsule Take 1 capsule by mouth twice daily for 5 days. 10 capsule 0 09/28/2022 10/03/2022 Active Comment on above: Take 1 capsule by [facility] twice daily for 5 days. cholecalciferol 0.05 mg oral capsule (20 sources) Vitamin D Start: 025 take 1 capsule by mouth once daily Cholecalciferol (Vitamin D3) (Vitamin D3) 50 mcg (2,000 unit) capsule Active 50 ug PO DAILY May 12, 2025 12:00am Complies with drug therapy cholecalciferol (VITAMIN D3) 5,000 unit tab Take 2,000 Units by mouth once daily. Last dose 09/26/22 Active Comment on above: Take 2,000 Units by mouth once daily. Take 2,000 Units by mouth once daily. Last dose 09/26/22 cyclobenzaprine hydrochloride 10 mg oral tablet (20 sources) Muscle Relaxant Start: take 1 tablet by mouth every eight [...] sources) Carbonic Anhydrase Inhibitor, beta-Adrenergic Karuna Start: take 1 drop(s) into the eye(s) twice daily dorzolamide-timolol (COSOPT) 22.3-6.8 mg/mL ophthalmic solution INSTILL 1 DROP IN LEFT EYE TWICE DAILY 02/22/2023 Active Comment on above: INSTILL 1 DROP IN LE FT EYE TWICE DAILY DULoxetine 60 mg delayed release oral capsule (5 sources) Serotonin and Norepinephrine Reuptake Inhibitor Start: take 1 capsule by mouth at bedtime Duloxetine 60 mg capsule,delayed release(DR/EC) Active 60 mg PO AT BEDTIME February 25, 2025 12:00am Complies with drug therapy famotidine 20 mg oral tablet (20 sources) Histamine-2 Receptor Antagonist Start: 025 take 2 tablets by mouth at bedtime Famotidine 20 mg tablet Active 40 mg PO AT BEDTIME February 25, 2025 12:00am Complies with drug therapy Start: 05-14-2023 take 1 tablet by jesus [...] mg PO daily February 25, 2025 12:00am Complies with drug therapy ferrous sulfate (IRON) 325 mg (65 mg iron) tablet Take 325 mg by mouth. Active Comment on above: Take 325 mg by mouth . folic acid 0.8 mg oral tablet (20 sources) Start: 05-12-2025 take 0.8 mg by mouth once daily Folic Acid 800 mcg tablet Active 0.8 mg PO DAILY May 12, 2025 12:00am Complies with drug therapy Start: 02-25-2025 End: 05-12-2025 take 1 tablet by mouth once daily Folic Acid 1 mg tablet Discontinued 1 mg PO daily February 25, 2025 12:00am May 12, 2025 4:49pm Start: 11-21-2015 take 1 tablet by jesus [...] TIMES A DAY February 25, 2025 12:00am Complies with drug therapy Start: 10-29-2023 End: 02-26-2024 take 1 tablet [...] TIMES DAILY Take 1 capsule by mo [facility] as directed for 20 days. Follow titration schedule received and reviewed at office visit. Please call our office for further refills pending outcome of titration Take 1 tablet by jesus th three times a day for 120 days. hydroCHLOROthiazide 25 mg / lisinopril 20 mg oral tablet (20 sources) Thiazide Diuretic, Angiotensin Converting Enzyme Inhibitor Start: 02-25-2025 Lisinopril-Hydrochl orothiazide 20-25 mg tablet Active 1 {tbl} PO daily February 25, 2025 12:00am Complies with drug therapy Start: 09-14-2021 take 1 tablet by jesus [...] 1 tablet by jesus th every morning. Lactobacillus Combination No.4 (Probiotic) 3 billion cell capsule (1 source) Start: 05-12-20 take 3 capsules by mouth once daily Lactobacillus Combination No.4 (Probiotic) 3 billion cell capsule Active 3000 NMA PO DAILY May 12, 2025 12:00am administer with a meal Complies with drug therapy latanoprost 0.05 mg/ml ophthalmic solution (20 sources) Prostaglandin Analog Start: 02-26-20 Latanoprost 0.005 % drops Active 1 NMA OPHTHALMIC EVERY EVENING February 25, 2025 12:00am Complies with drug therapy Start: 02-14-2022 take 1 drop(s) into the [...] 02-25-2025 Lidocaine-Prilocaine 2.5-2.5 % cream Active 1 NMA TOPICAL THREE TIMES A DAY as needed for pain February 25, 2025 12:00am Complies with drug therapy Start: 06-27-2023 End: 07-27-2023 lidocaine-prilocaine (EMLA) 2.5-2.5 [...] per day) Patient to establish care with [facility] nursing services 20 mL 0 10/10/2022 11/20/2022 [...] SYNCHROMED II MEDTRONIC INTRATHECAL PUMP WITH PERSONAL PROFESSOR OF APOLOGETICS 20 mL 0 09/25/2022 10/10/2022 Discontinued Start: 09-25-2022 morphine (PF) 5 mg/mL in NaCl 0.9% 20 mL Indications: Lumbar postlaminectomy syndrome PF MORPHINE 5 MG/ML SIMPLE CONTINUOUS RATE 0.03 MG/HOUR SYNCHROMED II MEDTRONIC INTRATHECAL PUMP WITH PERSONAL PROFESSOR OF APOLOGETICS 20 mL 0 09/25/2022 Active Comment on above: PF MORPHINE 5 MG/ML SIMPLE CONTINUOUS RATE 0.03 MG/HOUR SYNCHROMED II MEDTRONIC INTRATHECAL PUMP WITH PERSONAL PROFESSOR OF APOLOGETICS PF MORPHINE 5 MG/ML SIMPLE CONTINUOUS RATE 0.03 MG/HOUR Activate PTM 0.05 mg every 4 hours (max 6 doses per day) Patient to establish care with [facility] nursing services PF MORPHINE 5 MG/ML SIMPLE [...] MULTIVITAMIN PLUS ORAL TABLET Last dose 09/26/22 Multivitamin (Daily Multi-Vitamin) tablet (1 source) Start: 05-12-2025 Multivitamin (Daily Multi-Vitamin) tablet Active 1 {tbl} PO DAILY May 12, 2025 12:00am Complies with drug therapy nystatin 049897 unt/ml / triamcinolone acetonide 1 mg/ml topical [...] mg PO daily February 25, 2025 12:00am Complies with drug therapy Start: 06-07-2023 take 1 capsule by mo [facility] once daily before mealtime omeprazole (PRILOSEC) 40 mg capsule take 1 capsule by mouth every day before a meal 06/07/2023 Active Start: 09-14-2021 take 1 capsule by mo [facility] once daily in the morning omeprazole (PRILOSEC) 20 mg capsule Take 20 mg by mouth every morning. 0 02/01/2022 Active Comment on above: Take 20 mg by mouth every morning. take 1 capsule by mo [facility] every day before a meal simvastatin 20 mg oral tablet (20 sources) HMG-CoA Reductase Inhibitor Start: 07-03-202 5 take 1 tablet by mouth at bedtime Simvastatin 20 mg tablet Active 20 mg PO AT BEDTIME February 25, 2025 12:00am Complies with drug therapy Start: 09-14-2021 take 1 tablet by jesus th once daily at bedtime simvastatin (ZOCOR) 20 mg tablet Take 20 mg by mouth daily at bedtime. 09/14/2021 Active Comment on above: TAKE 1 TABLET BY MOUTH EVERY DAY Take 20 mg by mouth daily at bedtime. tiZANidine 4 mg oral tablet (20 sources) Central alpha-2 Adrenergic Agonist Start: End: take 1 tablet by mouth every eight hours as needed tiZANidine (ZANAFLEX) 4 mg tablet Take 1 tablet by mouth three times a day as needed. 90 tablet 3 09/16/2023 01/14/2024 Active Comment on above: Take 1 tablet by jesus three times a day as needed. 24 hr tolterodine tartrate 4 mg extended release oral capsule (20 sources) Cholinergic Muscarinic Antagonist Start: 5 take 1 capsule by mouth once daily Tolterodine 4 mg capsule,extended release 24hr Active 4 mg PO daily February 25, 2025 12:00am Complies with drug therapy Start: 09-14-2021 take 1 capsule by [facility] once daily tolterodine 4 mg oral capsule, extended release TAKE ONE CAPSULE BY MOUTH EVERY DAY Start Date: 09/14/21 Status: Ordered Start: 11-21-2015 End: 09-19-2022 tolterodine (DETROL) 1 mg ta blet Detrol 1 mg tablet 0 11/21/2015 09/19/2022 Discontinued (Discontinued by another Health Care Provider) take 1 capsule by [facility] every twenty-four hours tolterodine ER (DETROL LA) 4 mg 24 hr capsule Take 1 capsule by mouth q 24 HR. 0 Active Comment on above: Detrol 1 mg tablet Take 1 capsule by [facility] q 24 HR. Take 4 [...] Ora l route every day as needed. zinc gluconate 50 mg oral tablet (1 source) Start: 05-12-2025 take 1 tablet by mouth once daily Zinc Gluconate 50 mg tablet Active 50 mg PO DAILY May 12, 2025 12:00am Complies with drug therapy Completed/Discontinued Medications Medication Drug Class(es) Dates Sig [...] 10, 2022. Take 1 tablet by jesus th [...] Comment on above: TAKE 4 CAPSULES BY M OUTH 1 HOUR BEFORE DENTAL PROCEDURE DIRECTED [employer] COVID-19 AG SELF TEST kit (2 sources) Start: 03-19-2022 End: 04-16-2022 [employer] COVID-19 AG SELF TEST kit TEST DIRECTED TODAY 0 03/19/2022 04/16/2022 Discontinued Start: 03-19-2022 [employer] COVID -19 AG SELF TEST kit TEST DIRECTED TODAY 0 03/19/2022 Active Comment on above: TEST DIRECTED TOChandan ZAPATA Calcium (3 sources) Phosphate Binder, Calcium Start: 11-21-2015 End: 03-13-2022 [id number]-jeannie jeanne (CALTRATE 600-D PLUS MINERALS) 600 mg calcium- 800 unit-40 mg chew CALTRATE 600+D CHEW 0 11/21/2015 03/13/2022 Discontinued (Discontinued by Patient) Start: 11-21-2015 [id number] (CALTRATE 600-D PLUS MINERALS) 600 mg calcium- 800 unit-40 mg chew CALTRATE 600+D CHEW 0 11/21/2015 Active Comment on above: CALTRATE 600+D CHEW capsaicin 0.08865 mg/mg / lidocaine hydrochloride 0.005 mg/mg / [...] Active Start: 09-14-2021 [facility] daily meloxicam (MOBIC) 15 mg tablet Take 15 mg by mouth once daily. 0 11/06/2021 Active Comment on above: Take 15 mg by mouth once daily. Take 7.5 mg by mouth twice daily. nitrofurantoin, macrocrystals 25 mg / nitrofurantoin, monohydrate 75 mg oral capsule (10 sources) Nitrofuran Antibacterial Start: 11-20-19 23 End: 02-14-20 23 take 1 capsule by mouth twice daily [...] on above: TAKE 1 CAPSULE BY MO [facility] EVERY 12 HOURS WITH FOOD Take 100 mg by mouth twice daily. nystatin 100 unt/mg topical powder (13 sources) Polyene Antifungal Start: 02-25-2025 End: 05-12-2025 Nystatin (Nystop) 100,000 unit/gram powder Discontinued TOPICAL As Directed February 25, 2025 12:00am May 12, 2025 4:52pm Start: 05-13-2024 NYSTOP powder APPLY TOPICALLY TO THE AFFECTED AREA DIRECTED 05/13/2024 Active ondansetron 4 mg oral tablet (11 sources) Serotonin-3 Receptor Antagonist Start: 09-07-2022 End: 10-29-2022 take 1 tablet by mouth every eight hours as needed ondansetron (ZOFRAN) 4 mg tablet Take 1 tablet by mouth every 8 hours as needed for nausea/vomiting. 10 tablet 0 09/07/2022 10/29/2022 Discontinued Comment on above: Take 1 tablet by jesus th every 8 hours as needed for nausea/vomiting. pantoprazole 40 mg delayed release oral tablet (3 sources) Proton Pump Inhibitor Start: 02-12-2023 End: 07-09-2023 take 1 tablet by mouth once pantoprazole DR (PROTONIX) 40 mg tablet Take 1 tablet by mouth every afternoon. 0 02/12/2023 07/09/2023 Discontinued (Other) Comment on above: Take 1 tablet by jesus th every afternoon. regadenoson 0.4 mg injection (LEXISCAN) (2 sources) Start: 08-20-2024 End: 08-20-2024 regadenoson 0.4 mg injection (LEXISCAN) Start: 08-20-2024 [...] coronary artery; Translations: [Atherosclerotic heart disease of [place] coronary artery without angina pectoris] Onset: 08-20-2024 [...] Onset: 08-23-2015 09-12-2021 Chronic Other acquired deformities (9 sources) Scoliosis deformity of spine; Translations: [Scoliosis, unspecified] 02-26-2025 Chronic Other acquired deformities (9 sources) Kyphosis deformity of spine; Translations: [Unspecified kyphosis, site unspecified] 02-26-2025 Chronic Other acquired deformities (1 source) Other secondary kyphosis, thoracolumbar region; Translations: [Other secondary kyphosis, thoracolumbar region] Onset: 03-12-2025 Chronic Other acquired deformities (1 source) Other secondary scoliosis, thoracolumbar region; Translations: [Other secondary scoliosis, thoracolumbar region] Onset: 03-12-2025 Chronic Other acquired deformities (1 source) Spondylolisthesis, lumbar region; Translations: [Spondylolisthesis, lumbar region] Onset: 04-09-2025 Episodic Other bone disease and musculoskeletal deformities (17 sources) Osteopenia; Translations: [Other specified disorders of bone density and structure, unspecified site] Onset: 02-06-2016 06-23-2024 Episodic Other bone disease and musculoskeletal deformities (1 source) Other specified disorders of bone density and structure, unspecified site; Translations: [Other specified disorders of bone density and structure, unspecified site] Onset: 03-12-2025 Episodic Other circulatory disease (1 source) Hypotension, unspecified; Translations: [Hypotension, unspecified] Onset: 05-27-2025 Episodic Other connective tissue disease (20 sources) [...] Onset: 03-11-2022 Episodic Other connective tissue disease (9 sources) History of lumbar fusion; Translations: [Arthrodesis status] 02-26-2025 Episodic Other connective tissue disease (1 source) Arthrodesis status; Translations: [Arthrodesis status] Onset: 03-12-2025 [...] Onset: 07-31-2023 Chronic Other nervous system disorders (2 sources) Other chronic pain; Translations: [Other chronic pain] [...] Translations: [Other postprocedural status] Onset: 10-29-2022 Chronic Residual codes; unclassified (1 source) Other specified postprocedural states; Translations: [Other specified postprocedural states] Onset: 05-27-2025 Episodic Spondylosis; intervertebral disc disorders; other back problems (20 sources) Degeneration of lumbar intervertebral disc; Translations: [Other intervertebral disc degeneration, lumbar region] Onset: 08-23-2015 Chronic Spondylosis; intervertebral disc disorders; other back problems (20 sources) Low back pain; Translations: [Radiculopathy due to lumbar intervertebral disc disorder] Onset: 08-23-2015 09-14-2021 Episodic Unclassified (2 sources) Low back pain, unspecified; Translations: [Low back pain, unspecified] Onset: 03-12-2025 Unclassified (1 source) Other intervertebral disc degeneration, lumbar region without mention of lumbar back pain or lower extremity pain; Translations: [Other intervertebral disc degeneration, lumbar region without mention of lumbar back pain or lower extremity pain] Onset: 03-12-2025 Past or Other Problems Problem Classification Problem Date Documented Date Episodic/Chronic Abdominal hernia (20 sources) Hiatal hernia; Translations: [Diaphragmatic hernia without obstruction or gangrene] Onset: 10-02-2022 09-12-2021 Episodic Malaise and fatigue (20 sources) Asthenia; Translations: [Weakness] Onset: 10-02-2023 Resolved: 12-23-2023 10-02-2023 Episodic Other acquired deformities (20 sources) Leg length inequality; Translations: [Unequal limb length (acquired), unspecified site] Onset: 12-11-2021 10-02-2022 Episodic Other aftercare (20 sources) Taking high risk medication; Translations: [Other buttermaker continuous churn (current) drug therapy] Onset: 10-29-2022 Episodic Other aftercare (20 sources) Patient encounter status; 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, [address] Calcium [Mass/Vol] 8.4 mg/dL Normal 7.6-11.0 [facility] Comment on above: Performed By: #### L500.2500, L100.0100 ####[facility] [address] [place], [address] Chloride [Moles/Vol] 103 mmol/L Normal 98-108 [facility] Comment on above: Performed By: #### L500.2500, L100.0100 ####[facility] [address] [place], [address] CO2 [Moles/Vol] 26.3 mmol/L Normal 21.0-32.0 [facility] Comment on above: Performed By: #### L500.2500, L100.0100 ####[facility] [address] [place], [address] Creatinine [Mass/Vol] 0.70 mg/dL Normal 0.70-1.20 [facility] Comment on above: Performed By: #### L500.2500, L100.0100 ####[facility] [address] [place], [address] ECRCL 65.71 ml/min Normal 50-250 [facility] Comment on above: Performed By: #### L500.2500, L100.0100 ####[facility] [address] [place], [address] GAP 10 Normal 5-15 [facility] Comment on above: Performed By: #### L500.2500, L100.0100 ####[facility] [address] [place], [address] GFR/1.73 sq M.predicted among non-blacks MDRD (S/P/Bld) [Vol rate/Area] 90 mL/min/{1.73_m2} Normal >60 [facility] Comment on above: Result Comment: mL/min/1.73m2 CKD-EPI Cr eatinine Equation (2020) Performed By: #### L 500.2500, L100.0100 ####[facility] [address] [place], [address] Glucose [Mass/Vol] 138 mg/dL High 70-99 [facility] Comment on above: Performed By: #### L500.2500, L100.0100 ####[facility] [address] [place], [address] Potassium [Moles/Vol] 4.3 mmol/L Normal 3.3-5.1 [facility] Comment on above: Performed By: #### L500.2500, L100.0100 ####[facility] [address] [place], [address] Sodium [Moles/Vol] 139 mmol/L Normal 133-145 [facility] Comment on above: Performed By: #### L500.2500, L100.0100 ####[facility] [address] [place], [address] Urea nitrogen [Mass/Vol] 16 mg/dL Normal 4-19 [facility] Comment on above: Performed By: #### L500.2500, L100.0100 ####[facility] [address] [place], [address] CBC W/Diff, Automatedon 10-0 2-2024 Absolute Lymph 1.71 X10 3/uL Normal 0.83-4.51 [facility] Comment on above: Performed By: #### L500.2500, L100.0100 ####[facility] [address] [place], [address] Absolute Neut 12.1 X10 3/uL High 2.0-7.7 [facility] Comment on above: Performed By: #### L500.2500, L100.0100 ####[facility] [address] [place], [address] Basophils/100 WBC (Bld) 0.1 % Normal 0-1 [facility] Comment on above: Performed By: #### L500.2500, L100.0100 ####[facility] [address] [place], [address] Eosinophils/100 WBC (Bld) 0.0 % Normal 0-5 [facility] Comment on above: Performed By: #### L500.2500, L100.0100 ####[facility] [address] [place], [address] Erythrocyte distribution width (RBC) [Ratio] 12.0 % Normal 11.6-14.6 [facility] Comment on above: Performed By: #### L500.2500, L100.0100 ####[facility] [address] [place], [address] Hematocrit (Bld) [Volume fraction] 35.7 % Low 37-47 [facility] Comment on above: Performed By: #### L500.2500, L100.0100 ####[facility] [address] [place], [address] Hemoglobin (Bld) [Mass/Vol] 12.2 g/dL Normal 12.0-15.0 [facility] Comment on above: Performed By: #### L500.2500, L100.0100 ####[facility] [address] [place], [address] IG% 0.500 Normal 0.0-0.9 [facility] Comment on above: Result Comment: IG% - Immature Granulocy doris (promyelocytes, myelocytes and metamyelocytes) > 1% indicates that a LEFT SHIFT is Present. Performed By: #### L 500.2500, L100.0100 ####[facility] [address] [place], [address] Lymphocytes/100 WBC (Bld) 11.4 % Low 19-41 [facility] Comment on above: Performed By: #### L500.2500, L100.0100 ####[facility] [address] [place], [address] MCH (RBC) [Entitic mass] 32.1 pg High 27.0-32.0 [facility] Comment on above: Performed By: #### L500.2500, L100.0100 ####[facility] [address] [place], [address] MCHC (RBC) [Mass/Vol] 34.2 g/dL Normal 32-36 [facility] Comment on above: Performed By: #### L500.2500, L100.0100 ####[facility] [address] [place], [address] MCV (RBC) [Entitic vol] 93.9 fL Normal 81-99 [facility] Comment on above: Performed By: #### L500.2500, L100.0100 ####[facility] [address] [place], [address] Monocytes/100 WBC (Bld) 7.3 % Normal 0-10 [facility] Comment on above: Performed By: #### L500.2500, L100.0100 ####[facility] [address] [place], [address] Neutrophils/100 WBC (Bld) 80.7 % High 47-70 [facility] Comment on above: Performed By: #### L500.2500, L100.0100 ####[facility] [address] [place], [address] Nucleated RBC (Bld) [#/Vol] 0 10*3/uL Normal 0-5 [facility] Comment on above: Performed By: #### L500.2500, L100.0100 ####[facility] [address] [place], [address] Platelet mean volume (Bld) [Entitic vol] 9.0 fL Normal 6.2-12.0 [facility] Comment on above: Performed By: #### L500.2500, L100.0100 ####[facility] [address] [place], [address] Platelets (Bld) [#/Vol] 186 10*3/uL Normal 150-450 [facility] Comment on above: Performed By: #### L500.2500, L100.0100 ####[facility] [address] [place], [address] RBC (Bld) [#/Vol] 3.80 10*6/uL Low 4.2-5.4 [facility] Comment on above: Performed By: #### L500.2500, L100.0100 ####[facility] [address] [place], [address] RDW SD 41.4 fl Normal 35.1-43.9 [facility] Comment on above: Performed By: #### L500.2500, L100.0100 ####[facility] [address] [place], [address] WBC (Bld) [#/Vol] 15.0 10*3/uL High 4.4-11.0 [facility] Comment on above: Performed By: #### L500.2500, L100.0100 ####[facility] [address] [place], [address] D-Dimer Quantitative (DVT/PE )on 05-27-2025 D-DIMER QUANT 0.63 FEU/ug/m Invalid Interpretation Code 0.27-0.49 [facility] Comment on above: Result Comment: D-Dimer ELEVATED (>0.49) : Additional studies and clinical assessments are indicated to conclude diagnosis of: Deep Vein Thrombosis (DVT) or Pulmonary Embolism (PE) CRITICAL VALUE CALLED TO Korin CLAY 05/27/25 191 Clara Flores. RESULTS READ BACK BY SAME. Performed By: #### L 300.6809 #### [facility] [address] [place], [address] Discharge Instructionon Discharge Instruction [facility] Medical Records Department [address] [place] [address] Instructions for Home/Discharge Instructions 05/27/25 1309 MR#: [id number] Acct: [id number] Name: EMPERATRIZ GHOSH Rep #: [id number] : 1950 74 From: Aretha RAYMUNDO PCP: Dr. Luda Ann, DO Status:ADM SHAYLA Discharge Instructions DC O2, CPAP, BIPAP needs Home O2 Discharge instructions: No Follow Up Care Test Results: Test results from this visit will be discussed in further detail at your follow-up appointment, if applicable. Discharge Plan Admission Admit Date/Time: 05/26/25 12:56 Attending Provider: Jose Juan Springer Primary Care Provider: Luda Ann Consulting Providers: Jennifer Delaney Instructions Patient Instructions: Laminectomy Dc Additional Instructions / Restrictions: Keep Tegaderm and gauze clean and dry. If Tegaderm is intact, okay to shower. After 5 days remove Tegaderm and gauze and cover with a Band-Aid. Replace Band-Aid daily thereafter. No bending lifting or twisting. Follow-up in clinic in 2 weeks. Discharge Orders/Prescriptions Prescriptions: New acetaminophen 500 mg Tablet 500 mg PO Q6H Qty: 30 0RF hydrocodone-acetaminophen 5-325 mg Tablet 1 tab PO Q6H PRN (Reason: pain) 5 Days Qty: 20 0RF meloxicam 15 mg Tablet 15 mg PO DAILY Qty: 30 0RF Rx Instructions: Take once a day methocarbamol 500 mg Tablet 750 mg PO TID PRN (Reason: Pain/spasms) Qty: 30 0RF sennosides-docusate sodium [Stimulant Laxative Plus] 8.6-50 mg Tablet 2 tab PO BID PRN (Reason: constipation) Qty: 14 0RF Continued (DME) PAIN PUMP (INFORMATIONAL USE ONLY-PATIENT HAS MORPHINE PUMP) Prefilled Pump [place] See Rx Instructions .Route Rx Instructions: As directed aspirin 81 mg tablet 81 mg PO QDAY omeprazole 40 mg capsule,delayed release(DR/EC) 40 mg PO QDAY tolterodine 4 mg capsule,extended release 24hr 4 mg PO QDAY duloxetine 60 mg capsule,delayed release(DR/EC) 60 mg PO QHS famotidine 20 mg tablet 40 mg PO QHS latanoprost 0.005 % drops 1 drp ophthalmic (eye) QPM simvastatin 20 mg tablet 20 mg PO QHS brimonidine 0.2 % drops 1 drp ophthalmic (eye) BID lidocaine-prilocaine 2.5-2.5 % cream 1 applic topical TID PRN (Reason: pain) lisinopril-hydrochlorothiazid e 20-25 mg tablet 1 tab PO QDAY gabapentin 800 mg tablet 800 mg PO TID ascorbic acid (vitamin C) 500 mg capsule 500 mg PO DAILY ferrous sulfate [FeroSul] 325 mg (65 mg iron) tablet 325 mg PO QDAY folic acid 800 mcg tablet 0.8 mg PO DAILY calcium carbonate 600 mg calcium (1,500 mg) tablet 1,200 mg PO DAILY multivitamin [Daily Multi-Vitamin] Tablet 1 tab PO DAILY cholecalciferol (vitamin D3) [Vitamin D3] 50 mcg (2,000 unit) capsule 50 mcg PO DAILY zinc gluconate 50 mg tablet 50 mg PO DAILY Probiotic 3 billion cell capsule 3,000 mmu cells PO DAILY Rx Instructions: administer with a meal Referrals / Follow Up: Luda Ann DO [Primary Care Provider, Internal Medicine] Disposition Disposition (needs filled in before D/C Order can be placed): Home, Self Care 05/27/25 1309 Aretha RAYMUNDO CC: Dr. Luda Ann DO; Dr. Jennifer Delaney MD Signed Normal [facility] Bedside Glucoseon 05-26-2025 FINGERSTICK GLU 114 mg/dL High 74-106 [facility] Comment on above: Result Comment: MANAGEMENT OF PATIENT CA RE PER NURSING PROTOCOL Performed By: #### L 501.080 ####[facility] [address] [place], [address] Consultation - Hospitaliston 05-26-2025 Consultation - Hospitalist [facility] Medical Records Department [address] [place] [address] Consultation - Hospitalist 05/26/25 1612 MR#: [id number] Acct: [id number] Name: EMPERATRIZ GHOSH Rep #: [id number] : 1950 74 From: Jhonny Sultana DO PCP: Dr. Luda Ann DO Status:ADM SHAYLA Location: MS3 [id number] Assessment Plan Assessment/Plan (1) Chronic back pain: QUALIFIERS: Back pain location: low back pain Back pain laterality: bilateral S ciatica presence: without sciatica Qualified Code(s): M54.50 - Low back pain, unspecified; G89.29 - Other chronic pain (2) Status post laminectomy: PLAN: Plan Patient is a 74-year-old female who presented [facility] on 05/26/2025 for planned orthopedic spine procedure. Medicine consulted postoperatively for medical management. 1. Chronic back pain with prior L1-4 fusion ???Orthopedic surgery primary. S/p T8-10 laminectomy procedure with incidental dural leak repair done with Dr. Springer on 05/26. Notably patient has history of prior failed attempt at spinal cord stimulator placement and per Dr. Springer's procedure note, a spinal cord stimulator paddle lead placement was aborted during the procedure. Patient tolerated procedure well. Postoperative pain control, DVT prophylaxis and further management per orthopedics. Follow-up a.m. CBC and BMP. PT/OT/case management consulted. 2. Hypertension/hyperlipidemia ??? Patient normotensive in the 120s over 80s postoperatively. Okay to resume home lisinopril???hydrochlorothiaz chris with hold parameters in place. Continue home statin. 3. GERD ??? Continue home PPI. 4. Overactive bladder ??? Continue home tolterodine. 5. Class III obesity ??? BMI 44 on admit. Complicates hospital course and care. DVT prophylaxis: Will defer to orthopedics Total clinical time spent by myself addressing the patient's medical issues, reviewing all the data, and collaborating with patient's care team: 37 minutes. HPI Consult Data Date of Consult: 05/26/25 HPI Narrative Reason for Consultation: Postoperative medical management HPI Narrative: EMPERATRIZ GHOSH, is a 74 F who presented to [facility] on 05/26/2025 for planned orthopedic procedure. Medicine consulted postoperatively for medical management. Medical history significant for chronic back pain with prior L1-4 fusion and prior failed attempted spinal cord stimulator placement. Patient had T8-10 laminectomy with incidental dural leak repair done with Dr. Springer today. Spinal cord stimulator paddle lead placement was apparently attempted but aborted during the procedure. Patient tolerated the procedure well, no intraoperative complications noted. I saw the patient at bedside later this afternoon postoperatively. Patient was reporting mild mid back discomfort near the incision site at rest with some worsening with movement. She was given a dose of Tylenol and gabapentin thus far and states these have been mildly helpful for her. She denies any other acute concerns currently. [facility] Medical History Glaucoma Loss of hearing Wears glasses Post-menopausal Ambulates with cane Arthritis Easy bruising Back pain History of hiatal hernia History of diverticulitis Shortness of breath on exertion Non-smoker History of pain when walking Cardiology follow-up encounter History of stress test History of irregular heartbeat Chest pain Morbid obesity Bladder prolapse GERD (gastroesophageal reflux disease) Hyperlipemia Hypertension Home Medications ???Medication ???Instructions ???Recorded ???Last Taken ???Type PAIN PUMP (INFORMATIONAL USE 02/25/25 Unknown History ONLY-PATIENT HAS MORPHINE PUMP) ascorbic acid (vitamin C) 500 mg 500 mg PO DAILY 02/25/25 05/25/25 History capsule aspirin 81 mg tablet 81 mg PO QDAY 02/25/25 05/25/25 Hi story brimonidine 0.2 % eye drops 1 drp ophthalmic (eye) BID 5 05/25/25 History duloxetine 60 mg capsule,delayed 60 mg PO QHS 02/25/25 05/25/25 His tory release famotidine 20 mg tablet 40 mg PO QHS 02/25/25 05/25/25 His tory ferrous sulfate 325 mg (65 mg 325 mg PO QDAY 02/25/25 05/25/25 H istory iron) tablet (FeroSul) gabapentin 800 mg tablet 800 mg PO TID 02/25/25 05/26/25 Hi story latanoprost 0.005 % eye drops 1 drp ophthalmic (eye) QPM 07//2 5 05/25/25 History lidocaine-prilocaine 2.5 %-2.5 % 1 applic topical TID PRN pain 11/1705/21/25 History topical cream lisinopril 20 1 tab PO QDAY 02/25/25 05/25/25 Hi story mg-hydrochlorothiazide 25 mg tablet omeprazole 40 mg capsule,delayed 40 mg PO QDAY 02/25/25 05/26/25 Hi story release simvastatin 20 mg tablet 20 mg PO QHS 02/25/25 05/25/25 His tory tolterodine 4 mg capsule,extended 4 mg PO QDAY 02/25/25 05/26/25 Hi (more content not included)... Normal [facility] Lumbar Spine 2 or 3 Viewson 05-26-2025 Lumbar Spine 2 or 3 Views [facility] Imaging Services [address] [place] [address] [id number] Lumbar Spine 2 or 3 Views MR#: [id number] Acct: [id number] Name: EMPERATRIZ GHOSH Rep #: [id number] : 1950 F 74 From: Oziel Singleton MD PCP: Dr. Luda Ann DO Status: ADM SHAYLA Study: Lumbar Spine 2 or 3 Views Date of Exam: Exam# [id number] Ordering Dr: Jose Juan Springer MD PROCEDURE: LUMBAR SPINE 2 OR 3 VIEWS 05/26/2025 REASON FOR EXAM: SPINAL CORD STIMULATOR PADDLE LEAD TRIAL TECHNIQUE: Procedure Code: RADSPLL Modality: DX Procedure: LUMBAR SPINE 2 OR 3 VIEWS Fluoroscopy time: 5.6 seconds Total images: 4 COMPARISON: March 30, 2025, February 25, 2025 FINDINGS: Initial images show some forceps for localization over the lower thoracic spine. Subsequent images show tissue preparation room manager over the lower thoracic spine. RAD/Lumbar Spine 2 or 3 Views IMPRESSION: Fluoroscopic localization and guidance. Correlate with procedural note. Reading Location: [id number] CC: Dr. Jose Juan Springer MD; Dr. Luda Ann DO Scratch Polisher: Signed [facility] MR/POSTOP.ANEon 05-26-2025 MR/POSTOP.ANE [facility] Medical Records Department [address] [place] [address] Anesthesia Postop Eval I 05/26/25 1313 MR#: [id number] Acct: [id number] Name: EMPERATRIZ GHOHS Rep #: [id number] : 1950 74 From: Liz Rodriguez CRNA PCP: Dr. Luda Ann, DO Status:REG SDC Y Race: C Location: [place] [address] Anesthesia: Postop Eval I Current Vital Signs Temperature: 97.4 F Pulse Rate: 92 Blood Pressure: 126/87 Respiratory Rate: 18 Pulse Ox: 96 Assessment Airway patent: Yes Spontaneous unlabored respirations: Yes nausea: No Vomiting: No Anesthesia Complication: No Fluid Hydration Crystalloid volume administer (ml): 3,000 Total IV fluid infused: 3,000 Progress Note Anesthesia document: Postop Eval 1 completed: Yes 05/26/25 1314 Date Liz Nielsenignfior Signature: Date CC: Signed [facility] MR/JXXNNBLD2qd 05-26-2025 MR/POSTOPAN2 [facility] Medical Records Department [address] [place] [address] Anesthesia Postop Eval II 05/26/25 1509 MR#: [id number] Acct: [id number] Name: ANGEL GHOSHEMERITA LEON Rep #: [id number] : 1950 74 From: Vishal Johnson MD PCP: Dr. uLda Ann, DO Status:REG SDC Y Race: C Location: [place] [address] Anesthesia Postop Eval I Sum Postop Eval Completion status Anesthesia document: Postop Eval 1 completed: Yes Anesthesia Postop Eval I Summary Anesthesia Postop Eval I Summary: Anesthesia Postop Eval I: Assessment Summary Airway patent Yes 05/26/25 13:13 CUSTOMER OPERATIONS ASSOCIATE.CSIR Spontaneous unlabored Yes 05/26/25 13:13 CUSTOMER OPERATIONS ASSOCIATE.CSIR respirations Mental status nausea No 05/26/25 13:13 CUSTOMER OPERATIONS ASSOCIATE.CSIR Vomiting No 05/26/25 13:13 CUSTOMER OPERATIONS ASSOCIATE.CSIR Anesthesia Postop Eval I: Fluid Summary Crystalloid volume administer 3,000 05/26/25 13:13 CUSTOMER OPERATIONS ASSOCIATE.CSIR (ml) Colloids volume administered ( ml) Blood Product volume administered (ml) Total IV fluid infused 3,000 05/26/25 13:13 CUSTOMER OPERATIONS ASSOCIATE.CSIR Anesthesia Postop Eval I: Summary Notes Anesthesia Complication No 05/26/25 13:13 CUSTOMER OPERATIONS ASSOCIATE.CSIR Anesthesia Complication Comment: Post-operative progress note Anesthesia: Postop Eval II Evaluation Mental status: Awake and Calm Pain Level: 2 nausea: No Vomiting: No Complications Anesthesia Complication: No 05/26/25 1509 Date Vishal Johnson MD Cosigner Signature: Date CC: Signed Normal [facility] Operative Reporton 5 Operative Report [facility] Medical Records Department [address] [place] [address] Operative Report 05/26/25 1304 MR#: [id number] Acct: [id number] Name: EMPERATRIZ GHOSH Rep #: [id number] : 1950 74 From: Jose Juan Springer MD PCP: Dr. Luda Ann, DO Status:REG [facility] Location: [place] [address]-1 Procedures Musculoskeletal 20xxx-29xxx: Other Procedure See Report Operative Report (Standard) Operative Information Date of Procedure: 05/26/25 Pre-Operative Diagnosis: Chronic back pain, prior L1-4 fusion, prior failed attempts at spinal cord stimulator placement Post-Operative Diagnosis: Same Surgery/Procedure Performed: T8-10 laminectomy, aborted spinal cord stimulator paddle lead placement, incidental dural leak repair trial attorney: Yes Manager Customer Service: Aretha Barton Tasks completed by marketing operations assistant: Closing, Removing tissue, Hemostasis: Electrocautery and Retracting Type of Anesthesia: General RN Documented Start/Stop Times: Operation Date: 05/26/25 10:30 Case Time Into Pre-Op 05/26/25 08:32 Anesthesia Start 05/26/25 10:23 Into Room 05/26/25 10:23 Procedure Start 05/26/25 10:57 Procedure Start Time: 57 Procedure Stop Time: 13:05 Select all DRAINS/GRAFTS/IMPLANTS that apply: Graft Graft details: Dural patch graft Estimated Blood Loss: 100 cc Specimen collected: No Description of surgery: Preoperative diagnosis: Chronic back pain, prior L1-4 fusion, prior failed attempts at spinal cord stimulator placement Postoperative diagnosis: Same Name of procedure: T8-10 laminectomy, aborted spinal cord stimulator paddle lead placement, incidental dural leak repair with dural graft, CPT codes-44298, 75759. Anesthesia: Gen. endotracheal Estimated blood loss: 100 mL Complications: None Instrumentation used: Aborted due to dural leak. Indications: The patient is a pleasant 74-year-old lady who presented to us with symptoms of chronic low back pain, prior L1-4 fusion, prior failed attempts at percutaneous spinal cord stimulator placement. Patient requested surgical placement of permanent spinal cord stimulator lead. Plan was to do a staged procedure with for stage being a paddle trial which if successful to do permanent placement. All risks and benefits of the procedure were explained to the patient. The risks include but are not limited to infection, bleeding, injury to nerves and vessels, dural leak, need for further procedures, worsening lumbar pathology with potential neurologic symptoms, persistent pain, technical issues with spinal cord stimulator, hematoma, migration of lead, skin impingement from subcutaneous pulse generator, worsening deformity, DVT, pulmonary embolism, cardiopulmonary event etc. patient understands all the risks and benefits and agrees to the procedure. Procedure: The patient was identified in the preoperative suite using unique patient identifiers. Skin was marked consent was taken and all questions were answered. The patient was then brought back to the operative room and a timeout was performed. General endotracheal anesthesia was given. Intraoperative neuro monitoring leads were applied. The patient was carefully positioned prone on a standard OR table with a Drew frame. Back was prepped and draped in usual fashion. X-rays were performed to identify level of incision focused at the T9-10 interspace. A posterior midline incision was carried out. Bovie was utilized to go down to the spinous processes. Subperiosteal dissection over the lamina was performed. A Dolores clamp was then placed on the left presumed T9 transverse process, and C-arm AP view was taken. This confirmed the level by counting up from last rib. Laminotomy was performed from the left-sided T9-10 interspace. Upgoing curettes were utilized to detach the ligamentum flavum. Greene was passed into the epidural space. Significant adhesions were felt but these were bluntly released. Trial spinal cord stimulator paddle lead instrument was then passed carefully. AP x-ray confirmed good positioning. However, when the trial paddle was removed, clear fluid was visible suggestive of CSF leak. Since the origin of the leak could not be identified, decision was made to do a complete laminectomy of T9. T9 spinous process was removed with the help of large rongeur. Bur was utilized to thin down a rectangular portion of the lamina. T9 laminectomy was then performed. Significant epidural adhesions were noticed and the rent in the dura was identified approximately at the T9 pedicle level. There was a longitudinal rent about 1 inch. T8-9 interspace was then exposed and the laminectomy was extended up to inferior edge of T8 lamina. This identified the superior end of the dural rent. Hemostasis was achieved with Floseal. Because of the pulsating dura, decision was made to not to attempt suture repair of the dura. D (more content not included)... Normal [facility] Partial Thromboplast Timeon 05-26-2025 aPTT Coag (Bld) [Time] 25.1 s Normal 24.1-36.2 [facility] Comment on above: Performed By: #### L300.3900, L300.4310 #### [facility] [address] [place], [address] Prothrombin Time w/INRon INR Coag (PPP) [Relative time] 0.9 {INR} Normal [facility] Comment on above: Performed By: #### L300.3900, L300.4310 #### [facility] [address] [place], [address] PT Coag (PPP) [Time] 12.4 s Normal 11.7-14.9 [facility] Comment on above: Performed By: #### L300.3900, L300.4310 #### [facility] [address] [place], [address] Type AND Screen - PAT ONLYon 05-26-2025 A1 CELL Not performed Normal [facility] Comment on above: Order Comment: Reason for Laboratory Doris t [id number]/ANNSSPINAL CORD STIMULATOR Result Comment: Canc elled via OM: Specimen has been collected Performed By: #### B TSPAT ####[facility] [address] [place], [address] Ab SCREEN GEL Not performed Normal [facility] Comment on above: Order Comment: Reason for Laboratory Doris t [id number]/ANNSSPINAL CORD STIMULATOR Result Comment: Canc elled via OM: Specimen has been collected Performed By: #### B TSPAT ####[facility] [address] [place], [address] ABO and Rh group Nom (Bld) Test Not Performed Normal [facility] Comment on above: Order Comment: Reason for Laboratory Doris t [id number]/ANNSSPINAL CORD STIMULATOR Result Comment: Canc elled via OM: Specimen has been collected Performed By: #### B TSPAT ####[facility] [address] [place], [address] ANTI A Not performed Normal [facility] Comment on above: Order Comment: Reason for Laboratory Doris t [id number]/ANNSSPINAL CORD STIMULATOR Result Comment: Canc elled via OM: Specimen has been collected Performed By: #### B TSPAT ####[facility] [address] [place], [address] ANTI B Not performed Normal [facility] Comment on above: Order Comment: Reason for Laboratory Doris t [id number]/ANNSSPINAL CORD STIMULATOR Result Comment: Canc elled via OM: Specimen has been collected Performed By: #### B TSPAT ####[facility] [address] [place], [address] ANTI D Not performed Normal [facility] Comment on above: Order Comment: Reason for Laboratory Doris t [id number]/ANNSSPINAL CORD STIMULATOR Result Comment: Canc elled via OM: Specimen has been collected Performed By: #### B TSPAT ####[facility] [address] [place], [address] B CELLS Not performed Normal [facility] Comment on above: Order Comment: Reason for Laboratory Doris t [id number]/ANNSSPINAL CORD STIMULATOR Result Comment: Canc elled via OM: Specimen has been collected Performed By: #### B TSPAT ####[facility] [address] [place], [address] Liver Profileon 05-14-2025 Albumin [Mass/Vol] 3.7 g/dL Normal 3.4-4.8 [facility] Comment on above: Order Comment: PLEASE ADD ONTO LABS [facility] Performed By: #### L 500.3400, L501.5200 #### [facility] [address] [place], [address] ALK PHOS 113 U/L High 35-104 [facility] Comment on above: Order Comment: PLEASE ADD ONTO LABS FROM T-1-SWRIGHT Performed By: #### L 500.3400, L501.5200 #### [facility] [address] [place], [address] ALT [Catalytic activity/Vol] 19 U/L Normal <=34 [facility] Comment on above: Order Comment: PLEASE ADD ONTO LABS FROM T-1-SWRIGHT Performed By: #### L 500.3400, L501.5200 #### [facility] [address] [place], [address] AST [Catalytic activity/Vol] 28 U/L Normal <=31 [facility] Comment on above: Order Comment: PLEASE ADD ONTO LABS FROM T-1-SWRIGHT Performed By: #### L 500.3400, L501.5200 #### [facility] [address] [place], [address] Bilirubin [Mass/Vol] 0.65 mg/dL Normal 0.00-1.30 [facility] Comment on above: Order Comment: PLEASE ADD ONTO LABS FROM -1-RIGHT Performed By: #### L 500.3400, L501.5200 #### [facility] [address] [place], [address] Bilirubin.direct [Mass/Vol] 0.27 mg/dL Normal 0.00-0.30 [facility] Comment on above: Order Comment: PLEASE ADD ONTO LABS FROM -1-RIGHT Performed By: #### L 500.3400, L501.5200 #### [facility] [address] [place], [address] Globulin (S) [Mass/Vol] 2.9 g/dL Normal 2.2-4.2 [facility] Comment on above: Order Comment: PLEASE ADD ONTO LABS FROM T-1-RIGHT Performed By: #### L 500.3400, L501.5200 #### [facility] [address] [place], [address] T PROT 6.5 g/dL Normal 5.9-8.4 [facility] Comment on above: Order Comment: PLEASE ADD ONTO LABS FROM T-1-SWRIGHT Performed By: #### L 500.3400, L501.5200 #### [facility] [address] [place], [address] MRSA/SAID NASAL SCREENon MRSA+SAID SCRN Reason for Exam: Ernesto genoveva Copy of report sent to Infection Control Printer [id number] 05/14/25 1511 HEAVENLY. MRSA MRSA Negative S. AUREUS S. aureus PositiveA Normal [facility] Comment on above: Performed By: #### M100.651, L500.2500, L501.9985, BTSPAT, L100.0100 ####[facility] [address] [place], [address] Magnesiumon 05-14-2025 Magnesium [Mass/Vol] 2.0 mg/dL Normal 1.5-2.2 [facility] Comment on above: Order Comment: PLEASE ADD ONTO LABS FROM [facility] Performed By: #### L 500.3400, L501.5200 #### [facility] [address] [place], [place], [address] 12 Lead EKGon 05-13-2025 12 Lead EKG [facility] Services [address] [place] [address] 12 Lead EKG 05/13/25 1248 MR#: [id number] Acct: [id number] Name: EMPERATRIZ GHOSH Rep #: [id number] : 1950 74 From: Rodriguez Coleman MD Attending Dr: Dr. Jose Juan Springer MD Status: PRE [facility] [place] Ordering Dr: Jose Juan Springer MD Date: 05/13/25 Location: [facility] [place] Sex: F C Admitted: Test Reason : OP Blood Pressure : */* mmHG Vent. Rate : 89 BPM Atrial Rate : 89 BPM P-R Int : 136 ms QRS Dur : 66 ms QT Int : 398 ms P-R-T Axes : 32 3 7 degrees QTcB Int : 484 ms Normal sinus rhythm Normal ECG Confirmed by RODRIGUEZ COLEMAN MD ([id number]), graphic editor DAVID CHOWDHURY ([id number]) on 05/14/2025 10:41:20 AM Referred By: Jose Juan Springer Confirmed By: RODRIGUEZ COLEMAN MD 05/14/25 1041 Date Rodriguez Coleman MD CC: Dr. Jose Juan Springer MD; Dr. Luda Ann DO Signed Normal [facility] Basic Metabolic Profile (BMP )on 05-13-2025 BUN/CRE 27.8 RATIO High 10-20 [facility] Comment on above: Performed By: #### M100.651, L500.2500, L501.9985, BTSPAT, L100.0100 ####[facility] [address] [place], [address] Calcium [Mass/Vol] 9.0 mg/dL Normal 7.6-11.0 [facility] Comment on above: Performed By: #### M100.651, L500.2500, L501.9985, BTSPAT, L100.0100 ####[facility] [address] [place], [address] Chloride [Moles/Vol] 102 mmol/L Normal 98-108 [facility] Comment on above: Performed By: #### M100.651, L500.2500, L501.9985, BTSPAT, L100.0100 ####[facility] [address] [place], [address] CO2 [Moles/Vol] 25.8 mmol/L Normal 21.0-32.0 [facility] Comment on above: Performed By: #### M100.651, L500.2500, L501.9985, BTSPAT, L100.0100 ####[facility] [address] [place], [address] Creatinine [Mass/Vol] 0.66 mg/dL Low 0.70-1.20 [facility] Comment on above: Performed By: #### M100.651, L500.2500, L501.9985, BTSPAT, L100.0100 ####[facility] [address] [place], [address] GAP 11 Normal 5-15 [facility] Comment on above: Performed By: #### M100.651, L500.2500, L501.9985, BTSPAT, L100.0100 ####[facility] [address] [place], [address] GFR/1.73 sq M.predicted among non-blacks MDRD (S/P/Bld) [Vol rate/Area] 92 mL/min/{1.73_m2} Normal >60 [facility] Comment on above: Result Comment: mL/min/1.73m2 CKD-EPI Cr eatinine Equation (2020) Performed By: #### M 100.651, L500.2500, L501.9985, BTSPAT, L100.0100 ####[facility] [address] [place], [address] Glucose [Mass/Vol] 99 mg/dL Normal 70-99 [facility] Comment on above: Performed By: #### M100.651, L500.2500, L501.9985, BTSPAT, L100.0100 ####[facility] [address] [place], [address] Potassium [Moles/Vol] 4.1 mmol/L Normal 3.3-5.1 [facility] Comment on above: Performed By: #### M100.651, L500.2500, L501.9985, BTSPAT, L100.0100 ####[facility] [address] [place], [address] Sodium [Moles/Vol] 139 mmol/L Normal 133-145 [facility] Comment on above: Performed By: #### M100.651, L500.2500, L501.9985, BTSPAT, L100.0100 ####[facility] [address] [place], [address] Urea nitrogen [Mass/Vol] 18 mg/dL Normal 4-19 [facility] Comment on above: Performed By: #### M100.651, L500.2500, L501.9985, BTSPAT, L100.0100 ####[facility] [address] [place], [address] CBC W/Diff, Automatedon 04-26 Absolute Lymph 2.50 X10 3/uL Normal 0.83-4.51 [facility] Comment on above: Performed By: #### M100.651, L500.2500, L501.9985, BTSPAT, L100.0100 ####[facility] [address] [place], [address] Absolute Neut 4.3 X10 3/uL Normal 2.0-7.7 [facility] Comment on above: Performed By: #### M100.651, L500.2500, L501.9985, BTSPAT, L100.0100 ####[facility] [address] [place], [address] Basophils/100 WBC (Bld) 0.4 % Normal 0-1 [facility] Comment on above: Performed By: #### M100.651, L500.2500, L501.9985, BTSPAT, L100.0100 ####[facility] [address] [place], [address] Eosinophils/100 WBC (Bld) 2.1 % Normal 0-5 [facility] Comment on above: Performed By: #### M100.651, L500.2500, L501.9985, BTSPAT, L100.0100 ####[facility] [address] [place], [address] Erythrocyte distribution width (RBC) [Ratio] 12.0 % Normal 11.6-14.6 [facility] Comment on above: Performed By: #### M100.651, L500.2500, L501.9985, BTSPAT, L100.0100 ####[facility] [address] [place], [address] Hematocrit (Bld) [Volume fraction] 44.0 % Normal 37-47 [facility] Comment on above: Performed By: #### M100.651, L500.2500, L501.9985, BTSPAT, L100.0100 ####[facility] [address] [place], [address] Hemoglobin (Bld) [Mass/Vol] 14.9 g/dL Normal 12.0-15.0 [facility] Comment on above: Performed By: #### M100.651, L500.2500, L501.9985, BTSPAT, L100.0100 ####[facility] [address] [place], [address] IG% 0.400 Normal 0.0-0.9 [facility] Comment on above: Result Comment: IG% - Immature Granulocy doris (promyelocytes, myelocytes and metamyelocytes) > 1% indicates that a LEFT SHIFT is Present. Performed By: #### M 100.651, L500.2500, L501.9985, BTSPAT, L100.0100 ####[facility] [address] [place], [address] Lymphocytes/100 WBC (Bld) 32.6 % Normal 19-41 [facility] Comment on above: Performed By: #### M100.651, L500.2500, L501.9985, BTSPAT, L100.0100 ####[facility] [address] [place], [address] MCH (RBC) [Entitic mass] 32.0 pg Normal 27.0-32.0 [facility] Comment on above: Performed By: #### M100.651, L500.2500, L501.9985, BTSPAT, L100.0100 ####[facility] [address] [place], [address] MCHC (RBC) [Mass/Vol] 33.9 g/dL Normal 32-36 [facility] Comment on above: Performed By: #### M100.651, L500.2500, L501.9985, BTSPAT, L100.0100 ####[facility] [address] [place], [address] MCV (RBC) [Entitic vol] 94.6 fL Normal 81-99 [facility] Comment on above: Performed By: #### M100.651, L500.2500, L501.9985, BTSPAT, L100.0100 ####[facility] [address] [place], [address] Monocytes/100 WBC (Bld) 9.0 % Normal 0-10 [facility] Comment on above: Performed By: #### M100.651, L500.2500, L501.9985, BTSPAT, L100.0100 ####[facility] [address] [place], [address] Neutrophils/100 WBC (Bld) 55.5 % Normal 47-70 [facility] Comment on above: Performed By: #### M100.651, L500.2500, L501.9985, BTSPAT, L100.0100 ####[facility] [address] [place], [address] Nucleated RBC (Bld) [#/Vol] 0 10*3/uL Normal 0-5 [facility] Comment on above: Performed By: #### M100.651, L500.2500, L501.9985, BTSPAT, L100.0100 ####[facility] [address] [place], [address] Platelet mean volume (Bld) [Entitic vol] 9.1 fL Normal 6.2-12.0 [facility] Comment on above: Performed By: #### M100.651, L500.2500, L501.9985, BTSPAT, L100.0100 ####[facility] [address] [place], [address] Platelets (Bld) [#/Vol] 233 10*3/uL Normal 150-450 [facility] Comment on above: Performed By: #### M100.651, L500.2500, L501.9985, BTSPAT, L100.0100 ####[facility] [address] [place], [address] RBC (Bld) [#/Vol] 4.65 10*6/uL Normal 4.2-5.4 [facility] Comment on above: Performed By: #### M100.651, L500.2500, L501.9985, BTSPAT, L100.0100 ####[facility] [address] [place], [address] RDW SD 41.8 fl Normal 35.1-43.9 [facility] Comment on above: Performed By: #### M100.651, L500.2500, L501.9985, BTSPAT, L100.0100 ####[facility] [address] [place], [address] WBC (Bld) [#/Vol] 7.7 10*3/uL Normal 4.4-11.0 [facility] Comment on above: Performed By: #### M100.651, L500.2500, L501.9985, BTSPAT, L100.0100 ####[facility] [address] [place], [address] Hemoglobin A1con 05-13-2025 HbA1c (Bld) [Mass fraction] 5.5 % Normal <=5.6 [facility] Comment on above: Result Comment: Normal < 5.7 % Prediabetic 5.7 - 6.4 % Diabetic >or= 6.5 % Please note range changes. Performed By: #### M 100.651, L500.2500, L501.9985, BTSPAT, L100.0100 ####[facility] [address] [place], [address] MR/PAT.ANE 05-13-2025 MR/PAT.ANE [facility] Medical Records Department [address] [place] [address] PAT - Anesthesia 05/13/25 1723 MR#: [id number] Acct: [id number] Name: EMPERATRIZ GHOSH Rep #: [id number] : 1950 74 From: Boubacar Neal MD PCP: Dr. Luda Ann, DO Status:PRE SDC Y Race: C [place] [facility] [place] Pre-Assessment Diagnosis/Proposed Procedure Planned Operative Procedure(s): SPINAL CORD STIMULATOR PADDLE LEAD TRIAL, OPEN THORACIC LAMINECTOMY STAGE 1 Anesthesia History Anesthesia History - parquetry floor layer: Anesthesia History - parquetry floor layer Hx Hospitalization No 05/12/25 17:02 Any Problems With Anesthesia No 05/12/25 17:02 Cholinesterase deficiency No 05/12/25 17:02 You/Your Family Experience No 05/12/25 17:02 fever (hyperthermia) with Relationship Recent Exposure to Contagious Disease Does patient have nerve No 05/12/25 17:02 stimulator Patient instructed to have device shut off --Does patient have Pacemaker or ICD? When Was Last Pacemaker Check QUESTION #4 FULL TEXT: You/Your Family Experience fever (hyperthermia) with Anesthesia Last Oral Intake Last Oral intake: Last Oral Intake NPO since Meds taken in AM with sips of water? 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 - parquetry floor layer: PONV - parquetry floor layer Female Yes 05/12/25 17:02 HX of Motion Sickness No 05/12/25 17:02 HX of N/V After Surgery No 05/12/25 17:02 Non-Smoker Yes 05/12/25 17:02 Duration of Surgery greater Yes 05/12/25 17:02 than 60 minutes Number of Risk Factors 3 05/12/25 17:02 PONV Score Moderate Risk 05/12/25 17:02 Height Weight Height Weight: Anesthesia: Height Weight Height 5 ft 02/25/25 14:46 Respiratory Assessment Respiratory Assessment - parquetry floor layer: Respiratory Tract Infection Hx - parquetry floor layer Hx Respiratory Tract Infection No 05/12/25 17:02 STOP Sleep Apnea STOP Sleep Apnea - parquetry floor layer: STOP Sleep Apnea - parquetry floor layer Hx Hypertension Yes: CONTROLLED WITH MED 05/12/25 17:02 Hx Sleep Apnea No 05/12/25 17:02 CPAP BIPAP Do you snore loudly (louder No 05/12/25 17:02 than talking or can be heard Do you often feel tired/ No 05/12/25 17:02 fatigued/ sleepy during daytime? Has anyone observed you stop No 05/12/25 17:02 breathing during sleep? STOP Results Negative 05/12/25 17:02 QUESTION #5 FULL TEXT : Do you snore loudly (louder than talking or can be heard through closed doors)? 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 Specify any problems Hx of Preganancy in last 3 No 05/12/25 17:02 Months Nurse Filling Out Transfusion DSCHRIBER 05/12/25 17:02 Questions: Date: 05/12/25 05/12/25 17:02 Time: 17:04 05/12/25 17:02 Patient unable to answer at this time (ie. confused, unrespo /Reproduction History /Reproductive History - parquetry floor layer: /Reproductive Hx- parquetry floor layer Hx Now No 05/12/25 17:02 Gestational Age (in weeks): EDC: Hx Hx Para Hx Section SAB No 05/12/25 17:02 PFSH Medical History Glaucoma Loss of hearing Wears glasses Post-menopausal Ambulates with cane Arthritis Easy bruising Back pain History of hiatal hernia History of diverticulitis Shortness of breath on exertion Non-smoker History of pain when walking Cardiology follow-up encounter History of stress test History of irregular heartbeat Chest pain Morbid obesity Bladder prolapse GERD (gastroesophageal reflux disease) Hyperlipemia Hypertension Home Medications ???Medication ???Instructions ???Recorded ???Last Taken ???Type PAIN PUMP (INFORMATIONAL USE 02/25/25 Unknown History ONLY-PATIENT HAS MORPHINE PUMP) ascorbic acid (vitamin C) 500 mg 500 mg PO DAILY 02/25/25 Unknown H istory capsule aspirin 81 mg tablet 81 mg PO QDAY 02/25/25 Unknown His tory brimonidine 0.2 % eye drops 1 drp ophth (more content not included)... Normal [facility] Orthopedic Visit Reporton Orthopedic Visit Report [facility] [address] [place] [address] OFFICE VISIT Date of Service: 05/13/25 MR#: [id number] Acct: [id number] Name: EMPERATRIZ GHOSH Rep #: [id number] : 1950 Provider: Dr. Jose Juan Springer MD Age/Sex: 74/F Location: [facility] [place] Status: Signed Intake Vital Signs 02/25/25 14:46 05/13/25 11:00 Height 5 ft 5 ft Weight: 226 lb 226 lb BMI 44.1 44.1 Intake Visit Reasons: spine Chief Complaint: lumbar spine pre op Accompanied by: Self Is patient in pain?: Yes Pain scale (1-10): 5 Allergies No Known Allergies Allergy (Verified 05/13/25 11:03) Medications ???Medication ???Instructions ???Recorded ???Confirmed ???Type PAIN PUMP (INFORMATIONAL USE 02/25/25 05/13/25 History ONLY-PATIENT HAS MORPHINE PUMP) ascorbic acid (vitamin C) 500 mg 500 mg PO DAILY 02/25/25 05/13/25 History capsule aspirin 81 mg tablet 81 mg PO QDAY 02/25/25 05/13/25 Hi story brimonidine 0.2 % eye drops 1 drp ophthalmic (eye) BID 5 05/13/25 History duloxetine 60 mg capsule,delayed 60 mg PO QHS 02/25/25 05/13/25 His tory release famotidine 20 mg tablet 40 mg PO QHS 02/25/25 05/13/25 His tory ferrous sulfate 325 mg (65 mg 325 mg PO QDAY 02/25/25 05/13/25 H istory iron) tablet (FeroSul) gabapentin 800 mg tablet 800 mg PO TID 02/25/25 05/13/25 Hi story latanoprost 0.005 % eye drops 1 drp ophthalmic (eye) QPM 5 05/13/25 History lidocaine-prilocaine 2.5 %-2.5 % 1 applic topical TID PRN pain 11/1705/13/25 History topical cream lisinopril 20 1 tab PO QDAY 02/25/25 05/13/25 Hi story mg-hydrochlorothiazide 25 mg tablet omeprazole 40 mg capsule,delayed 40 mg PO QDAY 02/25/25 05/13/25 Hi story release simvastatin 20 mg tablet 20 mg PO QHS 02/25/25 05/13/25 His tory tolterodine 4 mg capsule,extended 4 mg PO QDAY 02/25/25 05/13/25 Hi story release 24 hr calcium carbonate 1,200 mg PO DAILY 05/12/25 5 History cholecalciferol (vitamin D3) 50 50 mcg PO DAILY 05/12/25 05/13/25 History mcg (2,000 unit) capsule (Vitamin D3) folic acid 800 mcg tablet 0.8 mg PO DAILY 05/12/25 05/13/25 History lactobacillus combination no.4 3 3,000 mmu cells PO DAILY 05/12/25 05/13/25 History billion cell capsule (Probiotic) multivitamin (Daily Multi-Vitamin 1 tab PO DAILY 05/12/25 05/13/25 History tablet) zinc gluconate 50 mg tablet 50 mg PO DAILY 05/12/25 05/13/25 H istory Have you fallen in the past year?: No [facility] Medical History Glaucoma Loss of hearing Wears glasses Post-menopausal Ambulates with cane Arthritis Easy bruising Back pain History of hiatal hernia History of diverticulitis Shortness of breath on exertion Non-smoker History of pain when walking Cardiology follow-up encounter History of stress test History of irregular heartbeat Chest pain Morbid obesity Bladder prolapse GERD (gastroesophageal reflux disease) Hyperlipemia Hypertension Surgical History History of cardiac catheterization Hx of bladder repair surgery History of esophagogastroduodenoscopy (EGD) Hx of colonoscopy Hx of total hip arthroplasty Hx of tonsillectomy H/O: hysterectomy History of hip replacement H/O spinal fusion H/O carpal tunnel repair History of knee replacement Social History Smoking Status: Never smoker HPI spine Details: This documentation accurately reflects the service provided and the decisions made by me, Dr. Jose Juan Springer MD 05/13/25 1058. Part of today???s visit was documented by Kylee Grijalva MA, acting as scribe. EMPERATRIZ GHOSH is a 74 year old F here today for lumbar spine pre op. Patient states that her pain is a 5 today. She states that she hasn't had any injections in her lower back. Patient states that she did try physical therapy in the past. She states that the physical therapy didn't help. Patient states that she would like to know what she can and can't do after surgery. She would like to know how long she would be at the hospital for. The patient is a 74-year-old female presenting with chronic back pain management. She has a history of multiple spinal surgeries, which have resulted in significant scarring and chronic pain. The current plan involves a spinal cord stimulator trial to assess pain relief before proceeding with a permanent implant. The procedure involves a thoracic laminectomy to place the paddle lead, due to previous scarring preventing a percutaneous approach. The trial will determine if there is sufficient pain relief to justify the second stage of the proc (more content not included)... Normal [facility] Type AND Screen - PAT ONLYon 05-13-2025 Ab SCREEN GEL Negative Normal [facility] Comment on above: Order Comment: Surgery Date: 05/26/25Rea son for Laboratory Test [id number] CORD STIMULATOR THORACIC LAMINECTOMY STAGE 1 Performed By: #### M 100.651, L500.2500, L501.9985, BTSPAT, L100.0100 ####[facility] [address] [place], [address] ABO and Rh group Nom (Bld) Blood group O Rh(D) positive Normal [facility] Comment on above: Order Comment: Surgery Date: 05/26/25Rea son for Laboratory Test [id number] CORD STIMULATOR THORACIC LAMINECTOMY STAGE 1 Performed By: #### M 100.651, L500.2500, L501.9985, BTSPAT, L100.0100 ####[facility] [address] [place], [address] Orthopedic Visit Reporton Orthopedic Visit Report [facility] [address] [place] [address] [address] [place] [address] OFFICE VISIT Date of Service: 04/22/25 MR#: [id number] Acct: [id number] Name: EMPERATRIZ GHOSH Rep #: [id number] : 1950 Provider: Dr. Jose Juan Springer MD Age/Sex: 74/F Location: [facility] [place] Status: Signed Intake Vital Signs 02/25/25 14:46 Height 5 ft Weight: 226 lb BMI 44.1 Intake Visit Reasons: LUMBAR SPINE Chief Complaint: lumbar spine Allergies No Known Allergies Allergy (Unverified 04/22/25 09:06) Medications ???Medication ???Instructions ???Recorded ???Confirmed ???Type PAIN PUMP (INFORMATIONAL USE 02/25/25 04/22/25 History ONLY-PATIENT HAS MORPHINE PUMP) ascorbic acid (vitamin C) 500 mg mg PO 02/25/25 04/22/25 History capsule aspirin 81 mg tablet 81 mg PO QDAY 02/25/25 04/22/25 Hi story brimonidine 0.2 % eye drops 1 drp ophthalmic (eye) BID 5 04/22/25 History duloxetine 60 mg capsule,delayed 60 mg PO QDAY 02/25/25 04/22/25 Hi story release famotidine 20 mg tablet 40 mg PO QHS 02/25/25 04/22/25 His tory ferrous sulfate 325 mg (65 mg 325 mg PO QDAY 02/25/25 04/22/25 H istory iron) tablet (FeroSul) folic acid 1 mg tablet 1 mg PO QDAY 02/25/25 04/22/25 His tory gabapentin 800 mg tablet 800 mg PO TID 02/25/25 04/22/25 Hi story latanoprost 0.005 % eye drops 1 drp ophthalmic (eye) QPM 5 04/22/25 History lidocaine-prilocaine 2.5 %-2.5 % 1 - 2 topical TID PRN 02/25/25 History topical cream lisinopril 20 1 tab PO QDAY 02/25/25 04/22/25 Hi story mg-hydrochlorothiazide 25 mg tablet nystatin 100,000 unit/gram topical topical DIRECTED 02/25/25 History powder (Nystop) omeprazole 40 mg capsule,delayed 40 mg PO QDAY 02/25/25 04/22/25 Hi story release simvastatin 20 mg tablet 20 mg PO QDAY 02/25/25 04/22/25 Hi story tolterodine 4 mg capsule,extended 4 mg PO QDAY 02/25/25 04/22/25 Hi story release 24 hr Have you fallen in the past year?: No [facility] Medical History (Updated 04/22/25 @ 09:36 by Gisela Mcbride RN) Morbid obesity Bladder prolapse GERD (gastroesophageal reflux disease) Hyperlipemia Hypertension Surgical History Hx of tonsillectomy H/O: hysterectomy History of hip replacement H/O spinal fusion H/O carpal tunnel repair History of knee replacement Social History Smoking Status: Never smoker HPI LUMBAR SPINE Details: This documentation accurately reflects the service provided and the decisions made by me, Dr. Jose Juan Springer MD 04/22/25 0904. Part of today???s visit was documented by Kymberly FINNEY and Gisela Mcbride RN, acting as scribe. EMPERATRIZ GHOSH is a 74 year old F here today for MRI review of the lumbar spine. Patient denies any changes to her symptoms. The pain is all in the low back it does not extend down into her legs. The left lower back is the most painful. Dr. Chase was not able to place the spinal cord stimulator due to scar tissue. She does not have diabetes. She denies heart or lung problems. She was experiencing shortness of breath and had a negative cardiac and pulmonary evaluation. She states they felt the shortness of breath was GI related from a hiatal hernia and reflux. She does have a pain pump. The patient is a 74-year-old female presenting with ongoing back pain and evaluation for spinal cord stimulator placement. The patient has a history of spinal surgeries in 2012 and 2015, involving fusions at levels 3 to 5 and 5 to 7. She underwent a spinal cord stimulator trial previously, which was unsuccessful due to scar tissue formation. The patient reports pain primarily in the mid to lower back, exacerbated by activities such as sweeping. The MRI and X-rays reveal kyphosis above the fusion and instability below, contributing to her pain. The patient denies leg pain but confirms significant discomfort around the waistline and below. The patient also reports a history of gastroesophageal reflux disease and hiatal hernia, which have been associated with her shortness of breath. She has undergone pulmonary testing and has been evaluated by a teachers assistant, with findings suggesting reflux as a contributing factor to her respiratory symptoms. The patient has osteoarthritis, particularly affecting the lower spine, as evidenced by MRI findings of arthritic changes in the lower segments. She experiences referred pain in the lower back, which is aggravated by physical activity. - Musculoskeletal: Reports back pain primarily in the mid to lower back, exacerbated by physical activity. Denies leg pain. - Respiratory: Reports shortness of breath for a couple of years. Denies an (more content not included)... Normal [facility] Magnetic resonance imaging r eportOrdered By: Carter Corona on 03-30-2025 Study report [facility] Imaging Services [address], [place] [address] Spine Lumbar (Routine) MR#: [id number] Acct: [id number] Name: EMPERATRIZ GHOSH Rep #: [id number] : 1950 F 74 From: Jl Corona MD PCP: Dr. Luda Ann DO Status: REG C LI Study:Spine Lumbar (Routine) Date of Exam: 03/30/25 Exam# [id number] Ordering Dr: Eunice Springer MD PROCEDURE: SPINE LUMBAR (ROUTINE) 03/30/2025 REASON FOR EXAM: CHRONIC PAIN TECHNIQUE: SPINE LUMBAR (ROUTINE) COMPARISON: Lumbar spine x-ray 02/25/2025. FINDINGS: Vertebrae: Status post laminectomies and posterior fusion L1 L2, L3 and L4. S/pspacer placement at L3-L4. Alignment: Normal. Conus Medullaris: Unremarkable. Disc levels: Disc desiccation and disc bulge at T11-T12 and T12-L1 with mild bilateral foramina stenosis and mild canal stenosis.. Sacrum: Unremarkable. MRI/Spine Lumbar (Routine) IMPRESSION: Status post laminectomies and posterior fusion L1, L2, L3 and L4. S/p spacer placement at L3-L4. Mild canal stenosis at T11-T12 and T12-L1. Otherwise, no significant foraminal or canal stenosis. Reading Location: [facility] CC: Dr. Jose Juan Springer MD; Dr. Luda Ann DO ~ Scratch Polisher: Signed [facility] Spine Lumbar (Routine)on Spine Lumbar (Routine) [facility] Imaging Services [address] [place], [place] [address] Spine Lumbar (Routine) MR#: [id number] Acct: [id number] Name: EMPERATRIZ GHOSH Rep #: [id number] : 1950 F 74 From: Carter Corona MD PCP: Dr. Luda Ann DO Status: REG CLI Study: Spine Lumbar (Routine) Date of Exam: 03/30/25 Exam# [id number] Ordering Dr: Jose Juan Springer MD PROCEDURE: SPINE LUMBAR (ROUTINE) 03/30/2025 REASON FOR EXAM: CHRONIC PAIN TECHNIQUE: SPINE LUMBAR (ROUTINE) COMPARISON: Lumbar spine x-ray 02/25/2025. FINDINGS: Vertebrae: Status post laminectomies and posterior fusion L1 L2, L3 and L4. S/p spacer placement at L3-L4. Alignment: Normal. Conus Medullaris: Unremarkable. Disc levels: Disc desiccation and disc bulge at T11-T12 and T12-L1 with mild bilateral foramina stenosis and mild canal stenosis.. Sacrum: Unremarkable. MRI/Spine Lumbar (Routine) IMPRESSION: Status post laminectomies and posterior fusion L1, L2, L3 and L4. S/p spacer placement at L3-L4. Mild canal stenosis at T11-T12 and T12-L1. Otherwise, no significant foraminal or canal stenosis. Reading Location: [facility] CC: Dr. Jose Juan Springer MD; Dr. Luda Ann DO Scratch Polisher: Signed Normal [facility] L/S Spine Min 4 Viewson L/S Spine Min 4 Views [facility] Imaging Services [address] [place] [address] L/S Spine Min 4 Views MR#: [id number] Acct: [id number] Name: EMPERATRIZ GHOSH Rep #: [id number] : 1950 F 74 From: Scott Garcia MD PCP: Status: DEP AMB Study: L/S Spine Min 4 Views Date of Exam: 02/25/25 Exam# [id number] Ordering Dr: Aretha Barton PROCEDURE: L/S SPINE [...] Lumbar spine scoliosis and degeneration. Reading Location: [place] [address] CC: ZACKARY Whittington Scratch Polisher: Signed Normal [facility] Orthopedic Visit Reporton Orthopedic Visit Report [facility] [address] [place] [address] OFFICE VISIT Date of Service: 02/25/25 MR#: [id number] Acct: [id number] Name: EMPERATRIZ GHOSH Rep #: [id number] : 1950 Provider: Dr. Jose Juan Springer MD Age/Sex: 74/F Location: [facility] Status: Signed Intake Vital Signs 02/25/25 14:46 [...] you fallen in the past year?: No PFSH Medical History (Updated 02/26/25 @ 13:[address] Jose Juan Springer MD) Bladder prolapse GERD (gastroesophageal reflux disease) Hyperlipemia Hypertension Surgical History (Updated 02/26/25 @ 13:[address] Jose Juan Springer MD) Hx of tonsillectomy H/O: hysterectomy History of hip replacement H/O spinal fusion H/O carpal tunnel repair History of knee replacement Social History (Updated 02/25/25 @ 14:55 by Gisela Mcbride, CAROLEE) Smoking Status: Never smoker HPI LUMBAR SPINE [...] also had two spinal fusions L1-L3 [place] [address] Gusman at [facility] L3-L4 in [address] Jiménez at [address]. She has received injections with Dr. Chase, [...] cord stimulator trial with Dr. Lyn at [facility]. He states the trial did not [...] surgeries, with the last one performed in 2016. She has not had any further discussions [...] it w (more content not included)... Normal [facility] Thoracic Spine 2 Viewson Thoracic Spine 2 Views [facility] Imaging Services [address], [place] [address] Thoracic Spine 2 Views MR#: [id number] Acct: [id number] Name: EMPERATRIZ GHOSH Rep #: [id number] : 1950 F 74 From: Scott Garcia MD PCP: Status: DEP AMB Study: Thoracic Spine 2 Views Date of Exam: 02/25/25 Exam# [id number] Ordering Dr: Jose Juan Springer MD PROCEDURE: THORACIC SPINE 2 VIEWS 02/25/2025 REASON FOR EXAM: SCS PLACEMENT PLANNING TECHNIQUE: THORACIC SPINE 2 VIEWS COMPARISON: No FINDINGS: Moderate scoliosis. Normal heart size. Large hiatal hernia. Multilevel disc space narrowing, endplate sclerosis, osteophyte formation. Underlying osteoporosis. No acute bone or soft tissue pathology. RAD/Thoracic Spine 2 Views IMPRESSION: Thoracic spine scoliosis and degeneration. Reading Location: [place] [address] CC: Dr. Jose Juan Springer MD Scratch Polisher: Signed [facility] BRIEF OP NOTon 09-21-2024 BRIEF OP NOT HNO ID: [id number] Author: MAYNOR FERNANDEZ MD Service: Cardiovascular Medicine [...] of hypertension and hyperlipidemia Maynor Fernandez MD [facility] CARD CATH DIAGNOSTICon 09-21 CARD CATH DIAGNOSTIC Site Id: [facility] Lab #: DEFAULT Study Date: 09/21/2024 Start Time: End Time: Name Duty Maynor Fernandez MD PROC MD 1 Lillie Natarajan PROC SCRUB 1 Mana Gresham RN PROC CIRC 1 Juliette Stallworth RN PROC RECORD 1 + + PATIENT INFORMATION + + Name: EMPERATRIZ GHOSH : 1950 Age: 74 years Gender: F + + CLINICAL HISTORY/INDICATIONS + + Dyspnea. Appropriate Use Criteria (Diag): High risk [...] + HEMODYNAMICS - XPER + + + +------+---- -+-------+-----+------+------ + Measurement Name Sys Arely End Arely Mean A Wave V Wave + +------+---- -+-------+-----+------+------ + AO 95.00 55.00 74.00 + +------+---- -+-------+-----+------+------ + LV 116.00 3.00 13.00 + +------+---- -+-------+-----+------+------ + LVp 110.00 9.00 22.00 + +------+---- -+-------+-----+------+------ + AOp 109.00 71.00 89.00 + +------+---- -+-------+-----+------+------ + AO 108.00 72.00 89.00 + +------+---- -+-------+-----+------+------ + Oximetry: +----+----+ +--+- --+--+ Time Site O2 Saturation O2 PO2 HB +----+----+ +--+- --+--+ + ------+ ADVERSE OUTCOME(s)/COMPLICATION(s) + ------+ None + --+ PROCEDURAL & TECHNICAL DETAILS + --+ Date Time Description 09/21/2024 12:00:[address] MISTRY *MEDICAL HISTORY* CAD Presentation: Symptoms Likely to [...] On: 10/23/2024 at 3:51:08 PM Final CC [facility] : [id number] See Link below for Image Normal [facility] CBC panel Auto (Bld)on 09-21 Erythrocyte distribution width (RBC) [Ratio] 11.6 % Normal 11.5-15.0 [facility] Comment on above: Order Comment: Specimen Type: BLOOD SPEC IMENOrdering Facility: [facility] Address: [address] [place] [address] Performed By: #### 5 8410-2 ####[facility] LABORATORYCLIA [id number] [address] STATES OF [facility] Hematocrit (Bld) [Volume fraction] 44.4 % Normal 36.0-46.0 [facility] Comment on above: Order Comment: Specimen Type: BLOOD SPEC IMENOrdering Facility: [facility] Address: [address] [place] [address] Performed By: #### 5 8410-2 ####[facility] LABORATORYCLIA [id number] [address] [place] Hemoglobin (Bld) [Mass/Vol] 14.9 g/dL Normal 11.5-15.5 [facility] Comment on above: Order Comment: Specimen Type: BLOOD SPEC IMENOrdering Facility: [facility] Address: [address] [place] [address] Performed By: #### 5 8410-2 ####[facility] LABORATORYCLIA [id number] [place] [address] [place] MCH (RBC) [Entitic mass] 31.8 pg Normal 26.0-34.0 [facility] Comment on above: Order Comment: Specimen Type: BLOOD SPEC IMENOrdering Facility: [facility] Address: [address] [place] [address] Performed By: #### 5 8410-2 ####[facility] LABORATORYCLIA [id number] [address] [place] MCHC (RBC) [Mass/Vol] 33.6 g/dL Normal 30.5-36.0 [facility] Comment on above: Order Comment: Specimen Type: BLOOD SPEC IMENOrdering Facility: [facility] Address: [address] [place] [address] Performed By: #### 5 8410-2 ####[facility] LABORATORYCLIA [id number] [place] [address] [place] MCV (RBC) [Entitic vol] 94.7 fL Normal 80.0-100.0 [facility] Comment on above: Order Comment: Specimen Type: BLOOD SPEC IMENOrdering Facility: [facility] Address: [address] [place] [address] Performed By: #### 5 8410-2 ####[facility] LABORATORYCLIA [id number] [address] [place] Nucleated RBC (Bld) [#/Vol] 10*3/uL Normal <0.01 [facility] Comment on above: Order Comment: Specimen Type: BLOOD SPEC IMENOrdering Facility: [facility] Address: [address] [place] [address] Performed By: #### 5 8410-2 ####[facility] LABORATORYCLIA [id number] [place] [address] [place] Platelet mean volume (Bld) [Entitic vol] 9.2 fL Normal 9.0-12.7 [facility] Comment on above: Order Comment: Specimen Type: BLOOD SPEC IMENOrdering Facility: [facility] Address: [address] [place] [address] Performed By: #### 5 8410-2 ####[facility] LABORATORYCLIA [id number] [place] [address] [place] Platelets (Bld) [#/Vol] 190 10*3/uL Normal 150-400 [facility] Comment on above: Order Comment: Specimen Type: BLOOD SPEC IMENOrdering Facility: [facility] Address: [address] [place], [place] [address], [place] [address] Performed By: #### 5 8410-2 ####[facility] LABORATORYCLIA [id number] [place] [id number] [facility] [place] RBC (Bld) [#/Vol] 4.69 10*6/uL Normal 3.90-5.20 [facility] Comment on above: Order Comment: Specimen Type: BLOOD SPEC IMENOrdering Facility: [facility] Address: [address] [place] [address] Performed By: #### 5 8410-2 ####[facility] LABORATORYCLIA [id number] [place] [address] [facility] WBC (Bld) [#/Vol] 7.22 10*3/uL Normal 3.70-11.00 [facility] Comment on above: Order Comment: Specimen Type: BLOOD SPEC IMENOrdering Facility: [facility] Address: [address] [place], [place] [address] Performed By: #### 5 8410-2 ####[facility] LABORATORYCLIA [id number] [place] [id number] [facility] [place] Comprehensive metabolic 2000 panelon 09-21-2024 Albumin [Mass/Vol] 3.5 g/dL Normal 3.2-5.0 [facility] Comment on above: Order Comment: Specimen Type: BLOOD SPEC IMENOrdering Facility: [facility] Address: [address] [place] [address] Performed By: #### 2 4323-8, 70144-8, , 6-3 ####[facility] LABORATORYCLIA [id number] [place] [address] [place] ALP [Catalytic activity/Vol] 126 U/L High 45-117 [facility] Comment on above: Order Comment: Specimen Type: BLOOD SPEC IMENOrdering Facility: [facility] Address: [address] [place] [address] Performed By: #### 2 4323-8, 05519-5, 95753-4, 6-3 ####[facility] LABORATORYCLIA [id number] [place] [address] [place] ALT [Catalytic activity/Vol] 22 U/L Normal 13-61 [facility] Comment on above: Order Comment: Specimen Type: BLOOD SPEC IMENOrdering Facility: [facility] Address: [address] [place] [address] Result Comment: Resu lts may be falsely depressed after the administration of Sulfasalazine and/or Sulfapyridine. Performed By: #### 2 4323-8, 11532-0, 38682-1, 6-3 ####[facility] LABORATORYCLIA [id number] [place] [address] [place] Anion gap [Moles/Vol] 8 mmol/L Normal 5-16 [facility] Comment on above: Order Comment: Specimen Type: BLOOD SPEC IMENOrdering Facility: [facility] Address: [address] [place] [address] Performed By: #### 2 4323-8, 82588-0, 70594-6, 6-3 ####[facility] LABORATORYCLIA [id number] [place] [address] [place] AST [Catalytic activity/Vol] 26 U/L Normal 8-34 [facility] Comment on above: Order Comment: Specimen Type: BLOOD SPEC IMENOrdering Facility: [facility] Address: [address] [place] [address] Result Comment: Resu lts may be falsely depressed after the administration of Sulfasalazine and/or Sulfapyridine. Performed By: #### 2 4323-8, 39957-7, 57387-9, 6-3 ####[facility] LABORATORYCLIA [id number] [place] [address] [place] Bilirubin [Mass/Vol] 0.7 mg/dL Normal 0.2-1.0 [facility] Comment on above: Order Comment: Specimen Type: BLOOD SPEC IMENOrdering Facility: [facility] Address: [address] [place] [address] Performed By: #### 2 4323-8, 94703-8, 07112-4, 6-3 ####[facility] LABORATORYCLIA [id number] [place] [address] [place] Calcium [Mass/Vol] 9.9 mg/dL Normal 8.5-10.5 [facility] Comment on above: Order Comment: Specimen Type: BLOOD SPEC IMENOrdering Facility: [facility] Address: [address] [place] [address] Performed By: #### 2 4323-8, 02143-7, , 3015-3 ####[facility] LABORATORYCLIA [id number] [place] [address] [place] Chloride [Moles/Vol] 104 mmol/L Normal 98-107 [facility] Comment on above: Order Comment: Specimen Type: BLOOD SPEC IMENOrdering Facility: [facility] Address: [address] [place] [address] Performed By: #### 2 4323-8, 46775-1, , 3015-3 ####[facility] LABORATORYCLIA [id number] [place] [address] [place] CO2 [Moles/Vol] 30 mmol/L Normal 21-32 [facility] Comment on above: Order Comment: Specimen Type: BLOOD SPEC IMENOrdering Facility: [facility] Address: [address] [place] [address] Performed By: #### 2 4323-8, 77024-6, , 3015-3 ####[facility] LABORATORYCLIA [id number] [place] [address] [place] Creatinine [Mass/Vol] 0.64 mg/dL Normal 0.51-0.95 [facility] Comment on above: Order Comment: Specimen Type: BLOOD SPEC IMENOrdering Facility: [facility] Address: [address] [place] [address] Result Comment: Anyi ents receiving either N-Acetylcysteine (NAC) or Metamizole prior to venipuncture, may have falsely depressed results. Performed By: #### 2 4323-8, 15242-9, 98435-6, 6-3 ####[facility] LABORATORYCLIA [id number] [place] [address] [place] Creatinine and Glomerular filtration rate.predicted panel (S/P/Bld) 92 mL/min/1.73m??? Normal >=60 [facility] Comment on above: Order Comment: Specimen Type: BLOOD SPEC IMENOrdering Facility: [facility] Address: [address] [place] [address] Result Comment: Giselle mated Glomerular Filtration Rate [...] actual GFR. Performed By: #### 2 4323-8, 34290-5, 25237-5, 3015-3 ####[facility] LABORATORYCLIA [id number] [place] [address] [place] Glucose [Mass/Vol] 95 mg/dL Normal 70-100 [facility] Comment on above: Order Comment: Specimen Type: BLOOD SPEC IMENOrdering Facility: [facility] Address: [address] [place] [address] Result Comment: The [place] [employer] (ADA) provides guidance for cutoff [...] Standards of Medical Care in Diabetes 2016, [place] [employer]. Diabetes Care. 2016.39(Suppl 1). Results may be falsely elevated after the administration of Sulfapyridine. Results may be falsely depressed after the administration of Sulfasalazine. Performed By: #### 2 4323-8, 55111-9, , 3015- ####[facility] LABORATORYCLIA [id number] [place] [address] [place] Potassium [Moles/Vol] 3.5 mmol/L Normal 3.5-5.1 [facility] Comment on above: Order Comment: Specimen Type: BLOOD SPEC IMENOrdering Facility: [facility] Address: [address] [place] [id number] Performed By: #### 2 4323-8, 84278-9, , 3015-10 ####[facility] LABORATORYCLIA [id number] [place] [address] [place] Protein [Mass/Vol] 6.8 g/dL Normal 6.0-8.5 [facility] Comment on above: Order Comment: Specimen Type: BLOOD SPEC IMENOrdering Facility: [facility] Address: [address] [place] [address] Performed By: #### 2 4323-8, 15566-6, , 3015-10 ####[facility] LABORATORYCLIA [id number] [place] [address] [place] Sodium [Moles/Vol] 142 mmol/L Normal 136-145 [facility] Comment on above: Order Comment: Specimen Type: BLOOD SPEC IMENOrdering Facility: [facility] Address: [address] [place] [address] Performed By: #### 2 4323-8, 27922-8, , 3015-10 ####[facility] LABORATORYCLIA [id number] [place] [address] [place] Urea nitrogen [Mass/Vol] 19 mg/dL Normal 7-26 [facility] Comment on above: Order Comment: Specimen Type: BLOOD SPEC IMENOrdering Facility: [facility] Address: [address] [place] [address] Performed By: #### 2 4323-8, 70689-8, 22965-0, 3016-3 ####[facility] LABORATORYCLIA [id number] [place] [address] [place] ECG COMPLETEon 09-21-2024 ECG COMPLETE Ventricular Rate : 9 8 BPM Atrial Rate : 98 BPM P-R Interval : 168 ms QRS Duration : 72 ms Q-T Interval : 380 ms QTC Calculation(Bazett) : 485 ms Calculated P Brady : 45 degrees Calculated R Brady : 9 degrees Calculated T Brady : 24 degrees Normal sinus rhythm QTcB >= 480 msec Abnormal ECG When compared with ECG of 20-Aug-2024 10:30, No interval changes Confirmed by HAYDEN HOLT MD ([id number]) on 09/21/2024 5:00:56 PM NAME : EMPERATRIZ GHOSH PID : [id number] : 1950 Gender : Female Race : ORD : [id number] Procedure Date : Sep 21 2024 07:57:27 Edit Date : Sep 21 2024 17:00:59 Diagnosis: Normal sinus rhythm QTcB >= 480 msec Abnormal ECG When compared with ECG of 20-Aug-2024 10:30, No interval changes Confirmed by HAYDEN HOLT MD ([id number]) on 09/21/2024 5:00:56 PM Test Reason : stat Location : 23 : [facility] MRCPL Overread By : HAYDEN HOLT MD Edited By : HAYDEN HOLT MD Referred By : , Acquired by : BETH KEYS [facility] HISTORY PHYSICALon HISTORY PHYSICAL HNO ID: [id number] Author: GILLIAN RAMIREZ APRN.ENGLISH LANGUAGE LEARNER TUTOR Service: Clinical Cardiology Author Type: Nurse Practitioner Type: H&P Filed: 09/21/2024 10:58 Note Text: CARDIOLOGY HISTORY AND PHYSICAL EXAMINATION DATE of SERVICE: September 21, 2024 TIME of SERVICE: 8:00 AM ATTENDING TIRE CLASSIFIER: Dr. Maynor Fernandez CHIEF COMPLAINT: Elective left heart catheterization LIDIA: Rina. This is a 74 year old [...] palpitations, shortness of breath at rest orthopnea/PND, lightheadedness/dizziness, fevers, chills, N/V/D, or cough. She has [...] sees Dr Chase for pain management in [place] Back pain has implanted pain pump to right hip sees Dr Chase for pain management in [place] Abreu esophagus Dr Leon egchandan 08/2024 [facility]. Coronary artery calcification sees Dr Cardona clinical services professional Essential hypertension controlled with meds moniotred by pcp GERD (gastroesophageal reflux disease) controlled w meds sees Dr Leon- Gastro Glaucoma left eye, ues drops H/O echocardiogram 02/01/2023 Dr Cardona Hiatal hernia High cholesterol controlled w meds, monitored by pcp Incontinence of urine Interstitial lung disease (HCC) sees Pulmonary, unsure of name Joint pain Pain management Placed by Dr Lyn at [facility] now sees Dr Chase in [place] - has implanted pain pump to right hip Sleep apnea mild sleep apnea- no cpap used seen by Pulmonary unsure of name Wears glasses PAST SURGICAL HISTORY Procedure Laterality Date BLADDER SURGERY HX 1993 REPAIR AND LIFT CARPAL TUNNEL RIGHT WRIST Bilateral 02/2023 COLONOSCOPY SCREENING 09/16/2024 Dr Leon EGD W/O [facility] SPEC VARICIES INJ Dr Leon Aug 2024 HYSTERECTOMY HX 1983 partial INTRATHECAL PUMP PLACEMENT 09/28/[address] Lyn now managed by Dr Chase in [place] ORTHOPEDICS SURGERY HX Bilateral left hip replacement [...] (1,500 mg) tabT (more content not included)... [facility] Lipid 1996 panelon 5 Cholesterol [Mass/Vol] 146 mg/dL Normal 0-199 [facility] Comment on above: Order Comment: Specimen Type: BLOOD SPEC IMENOrdering Facility: [facility] Address: [address] [place] [address] Result Comment: <200 mg/dL, Desirable 200-239 mg/dL, Borderline high >239 mg/dL, High Performed By: #### 2 4323-8, 25879-4, 07595-1, 3015-3 ####[facility] LABORATORYCLIA [id number] [place] [address] [place] Cholesterol in HDL [Mass/Vol] 53 mg/dL Normal >40 [facility] Comment on above: Order Comment: Specimen Type: BLOOD SPEC IMENOrdering Facility: [facility] Address: [address] [place] [address] Result Comment: 40-5 9 mg/dL, Acceptable >59 mg/dL, High: Negative risk factor for coronary heart disease <40 mg/dL, Low: Positive risk factor for coronary heart disease Performed By: #### 2 4323-8, 89943-2, , 3015-3 ####[facility] LABORATORYCLIA [id number] [place] [id number] [place] Cholesterol in LDL [Mass/Vol] 66 mg/dL Normal 0-129 [facility] Comment on above: Order Comment: Specimen Type: BLOOD SPEC IMENOrdering Facility: [facility] Address: [address] [place] [address] Result Comment: <100 mg/dL, Optimal 100-129 mg/dL, Near optimal/above optimal 130-159 mg/dL, Borderline high 160-189 mg/dL, High >189 mg/dL, Very high Secondary prevention optimal LDL Cholesterol levels are recommended to be < 70 mg/dL Performed By: #### 2 4323-8, 51295-7, 55227-5, 3015-3 ####[facility] LABORATORYCLIA [id number] [place] [address] [place] Cholesterol in LDL/Cholesterol in HDL [Mass ratio] 1.25 {ratio} Normal <2.54 [facility] Comment on above: Order Comment: Specimen Type: BLOOD SPEC IMENOrdering Facility: [facility] Address: [address] [place] [address] Result Comment: Jaylen salmon: 1. National Cholesterol Education Program ATP III Guideline At-A-Glance Quick Desk Reference: National Heart, Lung, and Blood [place]. National Institutes of Health. 2001: NIH Publication No. 01-3305. 2. An International Atherosclerosis Society position paper: global recommendations for the management of dyslipidemia: executive summary, Atherosclerosis. 2014: 232(2):410-413. Performed By: #### 2 4323-8, 69437-2, 38116-8, 3015-3 ####[facility] LABORATORYCLIA [id number] [place] [id number] [place] Cholesterol in VLDL [Mass/Vol] 27 mg/dL Normal <30 [facility] Comment on above: Order Comment: Specimen Type: BLOOD SPEC IMENOrdering Facility: [facility] Address: [address] [place] [address] Performed By: #### 2 4323-8, 56104-2, 04372-9, 3015-3 ####[facility] LABORATORYCLIA [id number] [place] [id number] [place] Cholesterol non HDL [Mass/Vol] 93 mg/dL Normal <130 [facility] Comment on above: Order Comment: Specimen Type: BLOOD SPEC IMENOrdering Facility: [facility] Address: [address] [place] [address] Result Comment: <130 mg/dL, Optimal 130-159 mg/dL, Near optimal/above optimal 160-189 mg/dL, Borderline high 190-219 mg/dL, High >219 mg/dL, Very high Secondary prevention optimal non HDL Cholesterol levels are recommended to be <100 mg/dL Performed By: #### 2 4323-8, 09112-1, 64589-4, 6-3 ####[facility] LABORATORYCLIA [id number] [place] [address] [place] Cholesterol.tota l/Cholesterol in HDL [Mass ratio] 2.75 {ratio} Normal <5.10 [facility] Comment on above: Order Comment: Specimen Type: BLOOD SPEC IMENOrdering Facility: [facility] Address: [address] [place] [address] Performed By: #### 2 4323-8, 52248-8, , 3015-10 ####[facility] LABORATORYCLIA [id number] [place] [id number] [place] FASTING TIME 10 hrs Normal [facility] Comment on above: Order Comment: Specimen Type: BLOOD SPEC IMENOrdering Facility: [facility] Address: [address] [place] [id number] Performed By: #### 2 4323-8, 72607-5, , 3015-10 ####[facility] LABORATORYCLIA [id number] [place] [id number] [place] Triglyceride [Mass/Vol] 134 mg/dL Normal 30-149 [facility] Comment on above: Order Comment: Specimen Type: BLOOD SPEC IMENOrdering Facility: [facility] Address: [address] [place] [address] Result Comment: <150 mg/dL, Normal 150-199 mg/dL, Borderline high 200-499 mg/dL, High >499 mg/dL, Very high Patients receiving either N-Acetylcysteine (NAC) or Metamizole prior to venipuncture, may have falsely depressed results. Performed By: #### 2 4323-8, 27119-3, , 3015-10 ####[facility] LABORATORYCLIA [id number] [place] [id number] [place] Magnesium SerPl-mCncon 09-21 Magnesium [Mass/Vol] 1.7 mg/dL Normal 1.6-2.6 [facility] Comment on above: Order Comment: Specimen Type: BLOOD SPEC IMENOrdering Facility: [facility] Address: [address] [place] [address] Performed By: #### 2 4323-8, 07109-7, , 3015-10 ####[facility] LABORATORYCLIA [id number] [place] [address] [place] PT panel Coag (PPP)on 2024 INR Coag (PPP) [Relative time] 1.0 {INR} Normal 0.9-1.3 [facility] Comment on above: Order Comment: Specimen Type: BLOOD SPEC IMENOrdering Facility: [facility] Address: [address] [place] [address] Result Comment: Lolita min K Antagonist (VKA) Therapeutic Range: INR 2 to 3 (Target INR of 2.5) Note: For patients treated with VKA drugs, such as warfarin, the [place] [employer] 2012 Guideline recommends [...] Chest 2012, 141:7S-47S Zahraa RA, et al. [facility] 2017, 70: 252-289 Performed By: #### 3 4528-0 ####[facility] LABORATORYCLIA [id number] [place] [id number] [place] PT Coag (PPP) [Time] 10.7 s Normal 9.7-13.0 [facility] Comment on above: Order Comment: Specimen Type: BLOOD SPEC IMENOrdering Facility: [facility] Address: [address] [place] [id number] Performed By: #### 3 4528-0 ####[facility] LABORATORYIA [id number] [place] [address] [place] TSH SerPl-aCncon 09-21-2024 TSH Qn 8.550 m[IU]/L High 0.358-3.740 [facility] Comment on above: Order Comment: Specimen Type: BLOOD SPEC IMENOrdering Facility: [facility] Address: [address] [place] [address] Result Comment: 3rd generation ultra sensitive TSH. Performed By: #### 2 4323-8, 57673-4, 55341-2, 3016-3 ####[facility] LABORATORYCLIA [id number] [place] [id number] [facility] [place] NURSING PROGon 09-18-2024 NURSING PROG HNO ID: [id number] Author: MERLYN HOLM, CAROLEE Service: Nursing Author Type: Registered Nurse Type: [...] color), Ensure Pre-Surgery (given by CARLY or evita DrKatie), fruit juice without pulp (apple/cranberry), clear [...] directed. Bring copy of Living Will/Power of Warper Tender. Do not smoke or chew. If you [...] the Surgery Center. UPON ARRIVAL: Access to [facility] (the [facility]) is located on [address] Supervisor [employer] parking is available for your convenience from [...] time are permitted in your preprocedure room. [facility] NURSING PROGon 09-17-2024 NURSING PROG HNO ID: [id number] Author: QUENTIN CRISTINA RN Service: Nursing Author Type: Registered Nurse Type: Nursing Progress Note Filed: 09/17/2024 16:38 Note Text: Patient has a [employer] intrathecal Pain pump implanted in her right hip by Dr Lyn on 09/28/2022. It is currently being managed by Dr Chase in [place] for pain management. I left a message with Dr Fernandez's nurse Shandra and regional office coordinator Kaylene to see if Dr Fernandez need device management form for her upcoming heart cath procedure on 09/21/24. 09/17/24 [id number] I also spoke with Dr Chase's office and they informed me that the device does not need touch or change for this type of procedure per Dr Chase. I will inform Dr Fernandez's office of this. [facility] CNPLu 09-02-2024 SHANAN Telephone (CAMJK) AUGIEEMPERATRIZ ([id number]) 1950 F Date Time Provider Department 09/02/24 [...] in both eyes daily at bedtime. - lisinopril-hydroCHLOROthiazid e (PRINZIDE, ZESTORETIC) 20-25 mg per tablet Take [...] radiculopathy [M54.14] 12/19/2017 Intervertebral disc disorder with radiculopathy*02/15/2022 Chronic low back pain [M54.50, G89.29] 02/04/2017 Implantable intrathecal infusion pump present [*10/29/2022 History of arthroplasty [Z98.890 (ICD-10-CM)] [*10/29/ (more content not included)... [facility] Zoey 08-31-2024 IVETTE Telephone (POP) EMPERATRIZ GHOSH ([id number]) 1950 F Date Time Provider Department 08/31/24 [...] in both eyes daily at bedtime. - lisinopril-hydroCHLOROthiazid e (PRINZIDE, ZESTORETIC) 20-25 mg per tablet Take [...] Lumbar spondylosis [M47. (more content not included)... [facility] CNOVon 08-20-2024 CNOV Office Visit (CAMMJK ) EMPERATRIZ GHOSH ([id number]) 1950 F Date Time Provider Department 08/20/24 10:30 AM [facility] DAVID PALAFOXKATE During your visit today, we recorded the following information about you: Referring Provider: MAHAMED CARDONA [[id number]] Allergies As of Date: 08/20/2024 (No Known [...] in both eyes daily at bedtime. - lisinopril-hydroCHLOROthiazid e (PRINZIDE, ZESTORETIC) 20-25 mg per tablet Take [...] radiculopathy [M54.14] 12/19/2017 Intervertebral disc disorder with radiculopathy*02/15/2022 Chronic low back pain [M54.50, G89.29] 0 (more content not included)... [facility] Zoey 08-20-2024 [facility] Telephone (POP) EMPERATRIZ GHOSH ([id number]) 1950 F Date Time Provider Department 08/20/24 [...] in both eyes daily at bedtime. - lisinopril-hydroCHLOROthiazid e (PRINZIDE, ZESTORETIC) 20-25 mg per tablet Take [...] radiculopathy [M54.14] 12/19/2017 Intervertebral disc disorder with radiculopathy*02/15/2022 Chronic low back pain [M54.50, G89.29] 02/04/2017 Implantab (more content not included)... Normal [facility] NM CARDIAC PERF STRESS/PHARM on 08-20-2024 MA CARDIAC PERF STRESS/PHARM * * *Final Report* * * DATE OF EXAM: Aug 20 2024 11:19AM N 0006 - NM CARDIAC PERF STRESS/PHARM / [...] later. See administered radiotracer and doses below. [facility] Date of service: 08/20/2024 9:45:26 [...] * * * Final * * * Stress ECG Report: [facility] Date of service: 08/20/2024 9:45:26 AM Ordering physician: MAHAMED CARDONA donor services specialist: Radha Ramírez RN Interpreting physician: [...] 100/69 mmHg. The double product achieved was [address]. Medications: Last Used LISINOPRIL and HCTZ [id number] PEPCID morphine GABAPENTIN BABY ASPIRIN vit d3 [...] 0 bpm Rate (more content not included)... [facility] 08-14-2024 IVETTE Telephone (POP) EMPERATRIZ GHOSH ([id number]) 1950 F Date Time Provider Department 08/14/24 [...] in both eyes daily at bedtime. - lisinopril-hydroCHLOROthiazid e (PRINZIDE, ZESTORETIC) 20-25 mg per tablet Take [...] radiculopathy [M54.14] 12/19/2017 Intervertebral disc disorder with radiculopathy*02/15/2022 Chronic low back pain [M54.50, G89.29] 02/04/2017 (more content not included)... [facility] Office Visit (POP ) EMPERATRIZ GHOSH ([id number]) 1950 F Date Time Provider Department 06/25/24 8:30 AM MAHAMED CARDONA During your visit today, we recorded the following information about you: Pulse Blood pressure Weight Height 95/minute 117/80 100.7 kg 1.524 m Mahamed Cardona MD 06/25/2024 9:18 AM Signed [facility] OUTPATIENT VISIT DATE June 25, 2024 OUTPATIENT VISIT TYPE New Cardiology Consult PRIMARY CARE PHYSICIAN: Luda Ann [address] [place] [address] HISTORY OF PRESENT ILLNESS: Emperatriz Ghosh is [...] Drop in both eyes daily at bedtime. lisinopril-hydroCHLOROthiazid e (PRINZIDE, ZESTORETIC) 20-25 mg per tablet Take [...] Constitutional: Appearance: (more content not included)... Normal [facility] XR SPINE THORACIC MINIMUM 4 [...] Ordering Provider: ANKITA Greer 03-12-2024 IVETTE Telephone (AcompliB) EMPERATRIZ GHOSH ([id number]) 1950 F Date Time Provider Department 03/12/24 MAHAMED CARDONA During your visit today, we recorded the following information about you: Hannah Robles 03/12/2024 3:08 PM Signed Received a referral from [facility] the office of Dr. [...] in both eyes daily at bedtime. - lisinopril-hydroCHLOROthiazid e (PRINZIDE, ZESTORETIC) 20-25 mg per tablet Take [...] radiculopathy [M54.14] 12/19/2017 Intervertebral disc disorder with radiculopathy*02/15/2022 (more content not included)... [facility] Zoey 02-19-2024 CNPN Telephone ([facility]) AUGIEEMPERATRIZ Katarzyna ([id number]) 1950 F Date Time Provider Department 02/19/24 JACI NIXON [facility] During your visit today, we recorded the following information about you: Jaci Nixon APRN.ENGLISH LANGUAGE LEARNER TUTOR 02/19/2024 7:09 AM Signed Please call the pt and get her an appt with Maynor gray [facility]. Thank you Jaci Nixon APRN.ENGLISH LANGUAGE LEARNER TUTOR 02/19/2024 10:08 AM Signed Noted and thank you. 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 - lisinopril-hydroCHLOROthiazid e (PRINZIDE, ZESTORETIC) 20-25 mg per tablet Take [...] radiculopathy [M54.14] 12/19/2017 Intervertebral disc disorder with radiculopathy*02/15/2022 Low back pain [M54.50] 03/11/2022 Implantable intrathecal infusion pump present [*10/29/2022 History of arthroplasty [Z98.890 (ICD-10-CM)] [*10/29/2022 High risk medication use [Z79.899] 10/29/2022 Sacroiliitis (HCC) [M4 (more content not included)... [facility] CNPN Telephone ([facility]) EMPERATRIZ GHOSH ([id number]) 1950 F Date Time Provider Department 02/19/24 JACI NIXON [facility] During your visit today, we recorded the following information about you: Kaylene Driver MA 02/19/2024 10:03 AM Signed I called patient to get her an appointment scheduled with Maynor Robles at [facility], patient stated she is no longer with us that she is seeing Dr Lopez in [place]. Kaylene Driver MA February 19, 2024 10:02 [...] in both eyes daily at bedtime. - lisinopril-hydroCHLOROthiazid e (PRINZIDE, ZESTORETIC) 20-25 mg per tablet Take [...] radiculopathy [M54.14] 12/19/2017 Intervertebral disc disorder with radiculopathy*02/15/2022 Low back pain [M54.50] 03/11/2022 Implantable intrathecal infusion pump present [*10/29/2022 History of arthroplasty [Z98.890 (ICD-10-CM)] [*10/29/2022 High risk medi (more content not included)... [facility] CNPN Telephone (SPANPM) EMPERATRIZ GHOSH ([id number]) 1950 F Date Time Provider Department 02/19/24 JACI NIXON [facility] During your visit today, we recorded the [...] in both eyes daily at bedtime. - lisinopril-hydroCHLOROthiazid e (PRINZIDE, ZESTORETIC) 20-25 mg per tablet Take [...] radiculopathy [M54.14] 12/19/2017 Intervertebral disc disorder with radiculopathy*02/15/2022 Low back pain [M54.50] 03/11/2022 Implantable intrathecal infusion pump present [*10/29/2022 History of arthroplasty [Z98.890 (ICD-10-CM)] [*10/29/2022 High risk medication use [Z79.899] 10/29/2022 Sacroiliitis (HCC) [M46.1] 07/31/2023 Carpal tunnel syndrome, bilateral [G56.03] 07/31/2023 Presence of left artificial knee joint [Z96.652]10/02/2023 12/23/2023 Weakness [R53.1] 10/02/2023 12/23/2023 Decreased range of motion of left knee [M25.662]10/02/2023 12/23/2023 E (more content not included)... Normal [facility] XR Spine Lumbar and Sacrum G E 6 Viewson 02-19-2024 IMPRESSION: Postoperative and degenerative changes with intact hardware. Scratch Polisher: DARREN Transcribe Date/Time: Feb 19 2024 6:30A Dictated by : ALESSIO TRIMBLE MD This examination was interpreted and the report reviewed and electronically signed by: ALESSIO TRIMBLE MD on Feb 19 2024 6:31AM [facility] * * *Final Report* * * [...] facet hypertrophy. Bilateral hip arthroplasties are noted. [facility] Provider, Cristiane Hancock - 02/19/2024 * * *Final Report* [...] Postoperative and degenerative changes with intact hardware. Scratch Polisher: DARREN Transcribe Date/Time: Feb 19 2024 6:30A Dictated by : ALESSIO TRIMBLE MD This examination was interpreted and the report reviewed and electronically signed by: ALESSIO TRIMBLE MD on Feb 19 2024 6:31AM EST [facility] XR Spine Lumbar and Sacrum G E 6 ViewsOrdered By: Ccf Provider on 02-19-2024 [facility] XR LUMBAR 6V AP/LAT/OBLS/FLE X/EXon 02-13-2024 XR LUMBAR 6V AP/LAT/OBLS/FLEX /EX * * *Final Report* * * DATE [...] Postoperative and degenerative changes with intact hardware. Scratch Polisher: PSCB Transcribe Date/Time: Feb 19 2024 6:30A Dictated by : ALESSIO RTIMBLE MD This examination was interpreted and the report reviewed and electronically signed by: ALESSIO TRIMBLE MD on Feb 19 2024 6:31AM EST [id number] Normal [facility] XR Spine Lumbar and Sacrum G E 6 Viewson 02-13-2024 Radiology Study observation (narrative) [facility] CT THORAX W/O CONTRASTon CT THORAX W/O [...] 02/03/2024 2:58:29 PM Ordering Provider: EVERETT MCCULLOUGH [facility] Zoey 12-31-2023 [facility] Telephone (ADONAY) AUGIEEMPERATRIZ ([id number]) 1950 F Date Time Provider Department 12/31/23 MAYNOR ROBLES During your visit today, we recorded the following information about you: Maura Jarvis RN 12/31/2023 1:44 PM Signed LM for pt to return call to update us on new pain pump provider. Referral to Dr Chase was faxed 12/15. Maura Jarvis RN December 31, 2023 1:44 PM Rosa Villanueva RN 01/02/2024 2:53 PM Signed Pt returned call to [facility]: Pt states that has not heard from Dr. Lopez. Pt given phone # for Dr. Lopez; pt states she will reach out to to his office to see if he is going to see her. She will let [facility] know response as well as to contact [facility] with any other updates, questons, or concerns. [...] in both eyes daily at bedtime. - lisinopril-hydroCHLOROthiazid e (PRINZIDE, ZESTORETIC) 20-25 mg per tablet Take [...] lumbar region [M96.1] (more content not included)... [facility] CNTHERAPYon 12-23-2023 CNTHERAPY OT/PT/Speech Visit ( [facility]) EMPERATRIZ GHOSH ([id number]) 1950 F Date Time Provider Department 12/23/23 9:30 AM LAURA SHAFFER [facility] Date Time Provider Department Center 12/23/2023 9:30 AM [id number], MICHEL*[facility] M Reason for Visit: PT Discharge [752] [...] in both eyes daily at bedtime. - lisinopril-hydroCHLOROthiazid e (PRINZIDE, ZESTORETIC) 20-25 mg per tablet Take [...] in error Letter Text Letter Text Normal [facility] CNOVon 12-18-2023 CNOV Office Visit (PAMMJK ) TONYAEMPERATRIZ ZAMUDIO ([id number]) 1950 F Date Time Provider Department 12/18/23 10:00 AM MAYNOR ROBLES During your visit today, we recorded the following information about you: Temperature Pulse Respiration Blood pressure 97.2 degrees 104/minute 18/minute 92/59 Maynor Robles PA-C 12/18/2023 10:40 AM Signed This note was created using Navarik. Subjective Emperatriz Colón Dotonyamagui is a 73 year old female. The [...] M54.16 5. Radi (more content not included)... [facility] CNTHERAPYon 12-18-2023 [facility] EMPERATRIZ GHOSH ([id number]) 1950 F Date Time Provider Department 12/18/23 1:30 PM DWAIN KOLB [facility] Date Time Provider Department Center 12/18/2023 1:30 PM [id number], SHEILA*[facility] M Reason for Visit: Physical Therapy [...] in both eyes daily at bedtime. - lisinopril-hydroCHLOROthiazid e (PRINZIDE, ZESTORETIC) 20-25 mg per tablet Take [...] PCP BLOOD NOT CLOT NORMAL PERSON [facility] CNCOon 12-17-2023 CNCO Letter Text [facility] CNPNon 12-16-2023 CNPN Telephone (ADONAY) EMPERATRIZ GHOSH ([id number]) 1950 F Date Time Provider Department 12/16/23 [...] 12/17/2023 1:17 PM Signed Referral sent through [facility] to Dr Chase. Maura Jarvis RN December 17, 2023 1:17 PM Allergies As of Date: 12/16/2023 (No Known Allergies) Date Reviewed: 09/16/2023 Reviewed by: Boubacar Andrews MD - Fully Assessed Reason for Visit: IT pump referral [Other] Primary Visit Diagnosis:Implantable intrathecal infusion pump present [Z96.89] Other Visit Diagnoses:Other chronic pain [G89.29] Diffuse myofascial pain syndrome [M79.18] Order(s):CONSULT TO NON-[facility] FACILITY [[id number]] Order #: [id number] Prescriptions as of 12/17/2023 - morphine (PF) [...] in both eyes daily at bedtime. - lisinopril-hydroCHLOROthiazid e (PRINZIDE, ZESTORETIC) 20-25 mg per tablet Take [...] Chronic pain syn (more content not included)... [facility] CNTHERAPYon 12-11-2023 CNTHERAPY OT/PT/Speech Visit ( [facility]) EMPERATRIZ GHOSH ([id number]) 1950 F Date Time Provider Department 12/11/23 10:45 AM DWAIN KOLB [facility] Date Time Provider Department Center 12/11/2023 10:45 AM [id number], SHEILA*[facility] M Reason for Visit: Physical Therapy [...] in both eyes daily at bedtime. - lisinopril-hydroCHLOROthiazid e (PRINZIDE, ZESTORETIC) 20-25 mg per tablet Take [...] PCP BLOOD NOT CLOT NORMAL PERSON [facility] Zoey 12-09-2023 SHANAN Telephone (ADONAY) EMPERATRIZ GHOSH ([id number]) 1950 F Date Time Provider Department 12/09/23 [...] in both eyes daily at bedtime. - lisinopril-hydroCHLOROthiazid e (PRINZIDE, ZESTORETIC) 20-25 mg per tablet Take [...] [M47.814] 12/19/2017 Deg (more content not included)... [facility] CNTHERAPYon 12-09-2023 CNTHERAPY OT/PT/Speech Visit ( [facility]) EMPERATRIZ GHOSH ([id number]) 1950 F Date Time Provider Department 12/09/23 10:45 AM DWAIN KOLB [facility] Date Time Provider Department Center 12/09/2023 10:45 AM [id number], SHEILA*[facility] Reason for Visit: Physical Therapy [503] [...] in both eyes daily at bedtime. - lisinopril-hydroCHLOROthiazid e (PRINZIDE, ZESTORETIC) 20-25 mg per tablet Take [...] PCP BLOOD NOT CLOT NORMAL PERSON Normal [facility]APYon [facility] EMPERATRIZ GHOSH ([id number]) 1950 F Date Time Provider Department 12/04/23 10:45 AM DWAIN KOLB [facility] Date Time Provider Department Center 12/04/2023 10:45 AM [id number], SHEILA*[facility] M Reason for Visit: Physical Therapy [...] in both eyes daily at bedtime. - lisinopril-hydroCHLOROthiazid e (PRINZIDE, ZESTORETIC) 20-25 mg per tablet Take [...] PCP BLOOD NOT CLOT NORMAL PERSON Normal [facility] CNTHERAPYon 12-02-2023 CNTHERAPY [facility] EMPERATRIZ GHOSH ([id number]) 1950 F Date Time Provider Department 12/02/23 10:45 AM DWAIN KOLB [facility] Date Time Provider Department Center 12/02/2023 10:45 AM [id number], SHEILA*[facility] M Reason for Visit: Physical Therapy [...] in both eyes daily at bedtime. - lisinopril-hydroCHLOROthiazid e (PRINZIDE, ZESTORETIC) 20-25 mg per tablet Take [...] PCP BLOOD NOT CLOT NORMAL PERSON Normal [facility] CNTHERAPYon 11-27-2023 CNTHERAPY OT/PT/Speech Visit ( [facility]) EMPERATRIZ GHOSH ([id number]) 1950 F Date Time Provider Department 11/27/23 11:00 AM LAURA SHAFFER [facility] Date Time Provider Department Center 11/27/2023 11:00 AM [id number], MICHEL*[facility] M Reason for Visit: PT Progress Note [...] in both eyes daily at bedtime. - lisinopril-hydroCHLOROthiazid e (PRINZIDE, ZESTORETIC) 20-25 mg per tablet Take [...] BLOOD NOT CLOT NORMAL PERSON Letter Text Normal [facility] CNTHERAPYon 11-25-2023 CNTHERAPY OT/PT/Speech Visit ( [facility]) EMPERATRIZ GHOSH ([id number]) 1950 F Date Time Provider Department 11/25/23 1:30 PM DWAIN KOLB [facility] Date Time Provider Department Center 11/25/2023 1:30 PM [id number] Visit: [facility] Therapy [503] [...] in both eyes daily at bedtime. - lisinopril-hydroCHLOROthiazid e (PRINZIDE, ZESTORETIC) 20-25 mg per tablet Take [...] PCP BLOOD NOT CLOT NORMAL PERSON Normal [facility] CNTHERAPYon 11-21-2023 CNTHERAPY OT/PT/Speech Visit ( [facility]) EMPERATRIZ GHOSH ([id number]) 1950 F Date Time Provider Department 11/21/23 11:00 AM MAYA GOEL [facility] Date Time Provider Department Center 11/21/2023 11:00 AM [id number], AMBER M [facility] Reason for Visit: Physical Therapy [503] [...] in both eyes daily at bedtime. - lisinopril-hydroCHLOROthiazid e (PRINZIDE, ZESTORETIC) 20-25 mg per tablet Take [...] PCP BLOOD NOT CLOT NORMAL PERSON Normal [facility] CNTHERAPYon 11-19-2023 CNTHERAPY OT/PT/Speech Visit ( [facility]) EMPERATRIZ GHOSH ([id number]) 1950 F Date Time Provider Department 11/19/23 3:00 PM DWAIN KOLB [facility] Date Time Provider Department Center 11/19/2023 3:00 PM [id number], SHEILA*[facility] M Reason for Visit: Physical Therapy [...] in both eyes daily at bedtime. - lisinopril-hydroCHLOROthiazid e (PRINZIDE, ZESTORETIC) 20-25 mg per tablet Take [...] PCP BLOOD NOT CLOT NORMAL PERSON Normal [facility] CNTHERAPYon 11-15-2023 CNTHERAPY OT/PT/Speech Visit ( [facility]) EMPERATRIZ GHOSH ([id number]) 1950 F Date Time Provider Department 11/15/23 11:00 AM DWAIN KOLB [facility] Date Time Provider Department Center 11/15/2023 11:00 AM [id number] for Visit: [facility] Therapy [...] in both eyes daily at bedtime. - lisinopril-hydroCHLOROthiazid e (PRINZIDE, ZESTORETIC) 20-25 mg per tablet Take [...] PCP BLOOD NOT CLOT NORMAL PERSON Normal [facility] CNTHERAPYon 11-13-2023 CNTHERAPY OT/PT/Speech Visit ( [facility]) EMPERATRIZ GHOSH ([id number]) 1950 F Date Time Provider Department 11/13/23 2:15 PM LAURA SHAFFER [facility] Date Time Provider Department Center 11/13/2023 2:15 PM [id number], MICHEL*[facility] M Reason for Visit: PT Progress [...] in both eyes daily at bedtime. - lisinopril-hydroCHLOROthiazid e (PRINZIDE, ZESTORETIC) 20-25 mg per tablet Take [...] PCP BLOOD NOT CLOT NORMAL PERSON Normal [facility] CNTHERAPYon 11-11-2023 [facility] EMPERATRIZ GHOSH ([id number]) 1950 F Date Time Provider Department 11/11/23 11:00 AM LAURA SHAFFER [facility] Date Time Provider Department Center 11/11/2023 11:00 AM [id number], MICHEL*[facility] M Reason for Visit: Physical Therapy [...] in both eyes daily at bedtime. - lisinopril-hydroCHLOROthiazid e (PRINZIDE, ZESTORETIC) 20-25 mg per tablet Take [...] BLOOD NOT CLOT NORMAL PERSON Letter Text [facility] CNTHERAPYon 11-06-2023 CNTHERAPY OT/PT/Speech Visit ( [facility]) EMPERATRIZ GHOSH ([id number]) 1950 F Date Time Provider Department 11/06/23 11:00 AM LAURA SHAFFER [facility] Date Time Provider Department Center 11/06/2023 11:00 AM [id number], MICHEL*[facility] M Reason for Visit: Physical Therapy [...] in both eyes daily at bedtime. - lisinopril-hydroCHLOROthiazid e (PRINZIDE, ZESTORETIC) 20-25 mg per tablet Take [...] PCP BLOOD NOT CLOT NORMAL PERSON [facility] CNTHERAPYon 11-04-2023 CNTHERAPY OT/PT/Speech Visit ( [facility]) EMPERATRIZ GHOSH ([id number]) 1950 F Date Time Provider Department 11/04/23 11:00 AM LAURA SHAFFER [facility] Date Time Provider Department Center 11/04/2023 11:00 AM [id number], MICHEL*[facility] M Reason for Visit: Physical Therapy [...] in both eyes daily at bedtime. - lisinopril-hydroCHLOROthiazid e (PRINZIDE, ZESTORETIC) 20-25 mg per tablet Take [...] PCP BLOOD NOT CLOT NORMAL PERSON Normal [facility] CNTHERAPYon 11-01-2023 CNTHERAPY OT/PT/Speech Visit ( [facility]) EMPERATRIZ GHOSH ([id number]) 1950 F Date Time Provider Department 11/01/23 11:00 AM DWAIN KOLB [facility] Date Time Provider Department Center 11/01/2023 11:00 AM [id number], SHEILA*[facility] M Reason for Visit: Physical Therapy [...] in both eyes daily at bedtime. - lisinopril-hydroCHLOROthiazid e (PRINZIDE, ZESTORETIC) 20-25 mg per tablet Take [...] PCP BLOOD NOT CLOT NORMAL PERSON [facility] CNTHERAPYon 10-30-2023 CNTHERAPY OT/PT/Speech Visit ( [facility]) EMPERATRIZ GHOSH ([id number]) 1950 F Date Time Provider Department 10/30/23 11:00 AM KIMIZANALAURA PANTOJA [facility] Date Time Provider Department Center 10/30/2023 11:00 AM [id number], MICHEL*[facility] M Reason for Visit: PT Progress Note [...] in both eyes daily at bedtime. - lisinopril-hydroCHLOROthiazid e (PRINZIDE, ZESTORETIC) 20-25 mg per tablet Take [...] PCP BLOOD NOT CLOT NORMAL PERSON [facility] Zoey 10-29-2023 IVETTE Telephone (ADONAY) EMPERATRIZ GHOSH ([id number]) 1950 F Date Time Provider Department 10/29/23 MAYNOR ROBLES During your visit today, we recorded the following information about you: Colleen Leong RN 10/29/2023 2:44 PM Signed Pt called [...] in both eyes daily at bedtime. - lisinopril-hydroCHLOROthiazid e (PRINZIDE, ZESTORETIC) 20-25 mg per tablet Take [...] minerals/lutein (MULTIVITAMIN 50 PLUS ORAL) Last dose 2/1/23 - folic acid 800 mcg tablet Take [...] [G89.18, M54.9] 02/15/2022 (more content not included)... Normal [facility] CNTHERAPYon 10-28-2023 CNTHERAPY OT/PT/Speech Visit ( [facility]) EMPERATRIZ GHOSH ([id number]) 1950 F Date Time Provider Department 10/28/23 10:45 AM DWAIN KOLB [facility] Date Time Provider Department Center 10/28/2023 10:45 AM [id number], SHEILA*[facility] M Reason for Visit: Physical Therapy [...] in both eyes daily at bedtime. - lisinopril-hydroCHLOROthiazid e (PRINZIDE, ZESTORETIC) 20-25 mg per tablet Take [...] PCP BLOOD NOT CLOT NORMAL PERSON [facility] .Auto Diffon 01-17-2024 Basophil, Absolute 0.0 10 3/mcL Normal 0.0-0.3 [facility] ([place]) Comment on above: Performed By: #### GFR, ADIFF, BMP, PRO, ANEU, CBC, A1C, MORPH #### [address] [address] Basophils/100 WBC (Bld) 0.3 % Normal 0.0-2.5 [facility] ([place]) Comment on above: Performed By: #### GFR, ADIFF, BMP, PRO, ANEU, CBC, A1C, MORPH #### [address] [address] Eosinophil, Absolute 0.2 10 3/mcL Normal 0.0-0.7 [facility] ([place]) Comment on above: Performed By: #### GFR, ADIFF, BMP, PRO, ANEU, CBC, A1C, MORPH #### [address] [address] Eosinophils/100 WBC (Bld) 1.9 % Normal 0.0-6.0 [facility] ([place] Comment on above: Performed By: #### GFR, ADIFF, BMP, PRO, ANEU, CBC, A1C, MORPH #### [address] [address] Lymphocyte, Absolute 2.0 10 3/mcL Normal 0.9-4.3 [facility] ([place] Comment on above: Performed By: #### GFR, ADIFF, BMP, PRO, ANEU, CBC, A1C, MORPH #### [address] [address] Lymphocytes/100 WBC (Bld) 23.4 % Normal 20.0-40.0 [facility] ([place] Comment on above: Performed By: #### GFR, ADIFF, BMP, PRO, ANEU, CBC, A1C, MORPH #### [address] [address] Monocyte, Absolute 0.8 10 3/mcL Normal 0.1-1.4 [facility] ([place] Comment on above: Performed By: #### GFR, ADIFF, BMP, PRO, ANEU, CBC, A1C, MORPH #### [address] [address] Monocytes/100 WBC (Bld) 8.8 % Normal 2.0-13.0 [facility] ([place] Comment on above: Performed By: #### GFR, ADIFF, BMP, PRO, ANEU, CBC, A1C, MORPH #### [address] [address] Neutrophils/100 WBC (Bld) 65.6 % Normal 50.0-75.0 [facility] ([place] Comment on above: Performed By: #### GFR, ADIFF, BMP, PRO, ANEU, CBC, A1C, MORPH #### [address] [address] .GFRon 09-11-2023 GFR >60 Normal [facility] ([place] Comment on above: Result Comment: GFR Population [...] BMP, PRO, ANEU, CBC, A1C, MORPH #### [address] [address] GFR Non- >60 Normal [facility] ([place] Comment on above: Result Comment: GFR Population [...] BMP, PRO, ANEU, CBC, A1C, MORPH #### [place] [address] .Morphon 09-11-2023 Anisocytosis Ql (Bld) 1+ Normal [facility] ([place] Comment on above: Performed By: #### GFR, ADIFF, BMP, PRO, ANEU, CBC, A1C, MORPH #### [place] [address] Ovalocytes 1+ Normal [facility] ([place] Comment on above: Performed By: #### GFR, ADIFF, BMP, PRO, ANEU, CBC, A1C, MORPH #### [place] [address] Platelet Estimate Normal Normal [facility] ([place] Comment on above: Performed By: #### GFR, ADIFF, BMP, PRO, ANEU, CBC, A1C, MORPH #### [place] [address] Poik 1+ Normal [facility] ([place] Comment on above: Performed By: #### GFR, ADIFF, BMP, PRO, ANEU, CBC, A1C, MORPH #### [place] [address] .NEUABSon 09-11-2023 Neutrophil, Absolute 5.6 10 3/mcL Normal 2.3-8.1 [facility] ([place] Comment on above: Performed By: #### GFR, ADIFF, BMP, PRO, ANEU, CBC, A1C, MORPH #### [place] [address] A1Con 09-11-2023 HbA1c (Bld) [Mass fraction] 5.4 % Normal 4.0-6.0 [facility] ([place] Comment on above: Performed By: #### GFR, ADIFF, BMP, PRO, ANEU, CBC, A1C, MORPH #### [place] [address] APTTon 09-11-2023 aPTT Coag (Bld) [Time] 28.1 s Normal 25.0-35.0 [facility] ([place] Comment on above: Result Comment: For Heparin anticoagulat ion therapy, the recommended therapeutic range is: 54-77 seconds (APTT Correlation with Anti-Xa therapeutic range of 0.3-0.7 units/ml). PLEASE REFERENCE THE PHARMACY PROTOCOL FOR DOSING. Performed By: #### G FR, ADIFF, BMP, PRO, ANEU, CBC, A1C, MORPH #### [address] [address] Heparin dose (APTT) Unknown Normal [facility] ([place] Comment on above: Performed By: #### GFR, ADIFF, BMP, PRO, ANEU, CBC, A1C, MORPH #### [address] [address] BMPon 09-11-2023 BUN/Creatinine Ratio 30.1 ratio High 10.0-22.0 [facility] ([place] Comment on above: Performed By: #### GFR, ADIFF, BMP, PRO, ANEU, CBC, A1C, MORPH #### [address] [address] Calcium [Mass/Vol] 9.3 mg/dL Normal 8.7-10.4 [facility] ([place] Comment on above: Performed By: #### GFR, ADIFF, BMP, PRO, ANEU, CBC, A1C, MORPH #### [address] [address] Chloride [Moles/Vol] 106 mmol/L Normal 98-110 [facility] ([place] Comment on above: Performed By: #### GFR, ADIFF, BMP, PRO, ANEU, CBC, A1C, MORPH #### [address] [address] CO2 [Moles/Vol] 29 mmol/L Normal 22-32 [facility] ([place] Comment on above: Performed By: #### GFR, ADIFF, BMP, PRO, ANEU, CBC, A1C, MORPH #### [address] [address] Creatinine [Mass/Vol] 0.73 mg/dL Normal 0.50-1.20 [facility] ([place] Comment on above: Performed By: #### GFR, ADIFF, BMP, PRO, ANEU, CBC, A1C, MORPH #### [address] [address] Electrolyte Balance 7.0 mEq/L Normal 4.0-15.0 [facility] ([place] Comment on above: Performed By: #### GFR, ADIFF, BMP, PRO, ANEU, CBC, A1C, MORPH #### [address] [address] Glucose [Mass/Vol] 108 mg/dL Normal 82-115 [facility] ([place] Comment on above: Performed By: #### GFR, ADIFF, BMP, PRO, ANEU, CBC, A1C, MORPH #### [place] [id number] Potassium [Moles/Vol] 4.2 mmol/L Normal 3.5-5.0 [facility] ([place] Comment on above: Performed By: #### GFR, ADIFF, BMP, PRO, ANEU, CBC, A1C, MORPH #### [address] [address] Sodium [Moles/Vol] 142 mmol/L Normal 136-145 [facility] ([place] Comment on above: Performed By: #### GFR, ADIFF, BMP, PRO, ANEU, CBC, A1C, MORPH #### [place] [id number] Urea nitrogen [Mass/Vol] 22.0 mg/dL Normal 8.0-22.0 [facility] ([place] Comment on above: Performed By: #### GFR, ADIFF, BMP, PRO, ANEU, CBC, A1C, MORPH #### [place] [id number] CBCon 09-11-2023 Erythrocyte distribution width (RBC) [Ratio] 17.3 % High 11.5-15.5 [facility] ([place] Comment on above: Performed By: #### GFR, ADIFF, BMP, PRO, ANEU, CBC, A1C, MORPH #### [place] [id number] Hematocrit (Bld) [Volume fraction] 43.8 % Normal 34.0-46.0 [facility] ([place] Comment on above: Performed By: #### GFR, ADIFF, BMP, PRO, ANEU, CBC, A1C, MORPH #### [place] [address] Hgb 14.9 G/dL Normal 12.0-16.0 [facility] ([place] Comment on above: Performed By: #### GFR, ADIFF, BMP, PRO, ANEU, CBC, A1C, MORPH #### [place] [address] MCH (RBC) [Entitic mass] 31.1 pg Normal 27.0-33.0 [facility] ([place] Comment on above: Performed By: #### GFR, ADIFF, BMP, PRO, ANEU, CBC, A1C, MORPH #### [place] [address] MCHC 34.1 G/dL Normal 32.0-36.0 [facility] ([place] Comment on above: Performed By: #### GFR, ADIFF, BMP, PRO, ANEU, CBC, A1C, MORPH #### [place] [address] MCV (RBC) [Entitic vol] 91.2 fL Normal 80.0-99.0 [facility] ([place] Comment on above: Performed By: #### GFR, ADIFF, BMP, PRO, ANEU, CBC, A1C, MORPH #### [place] [address] Platelet 247 10 3/mcL Normal 150-450 [facility] ([place] Comment on above: Performed By: #### GFR, ADIFF, BMP, PRO, ANEU, CBC, A1C, MORPH #### [place] [address] Platelet mean volume (Bld) [Entitic vol] 7.4 fL Normal 6.6-10.5 [facility] ([place] Comment on above: Performed By: #### GFR, ADIFF, BMP, PRO, ANEU, CBC, A1C, MORPH #### [address] [address] RBC 4.80 10 6/mcL Normal 4.10-5.30 [facility] ([place] Comment on above: Performed By: #### GFR, ADIFF, BMP, PRO, ANEU, CBC, A1C, MORPH #### [place] [address] WBC 8.6 10 3/mcL Normal 4.5-10.8 [facility] ([place] Comment on above: Performed By: #### GFR, ADIFF, BMP, PRO, ANEU, CBC, A1C, MORPH #### [place] [id number] PROon 09-11-2023 INR Coag (PPP) [Relative time] 1.0 {INR} Normal [facility] ([place] Comment on above: Result Comment: The [place] (CHEST, 1992, 102:312S-25S) recommended therapeutic range for oral anticoagulant therapy is: LOW RISK: Prophylaxis of venous thrombosis INR: 2.0-3.0 Treatment of pulmonary embolism 2.0-3.0 Prevention of systemic embolism 2.0-3.0 HIGH RISK: Mechanical prosthetic valves 2.5-3.5 Performed By: #### G FR, ADIFF, BMP, PRO, ANEU, CBC, A1C, MORPH #### [place] [address] PT Coag (PPP) [Time] 11.3 s Normal 9.0-14.2 [facility] ([place]) Comment on above: Result Comment: Effective 03/09/08, Prot alexis results may be affected by some antibiotics (i.e. Ciprofloxacin, Azithromycin, Bactrim) which may potentiate the action of oral anticoagulants, with further increases in Protime/INR. Performed By: #### G FR, ADIFF, BMP, PRO, ANEU, CBC, A1C, MORPH #### [place] [id number] XR CHEST 2 VIEWSon XR CHEST 2 VIEWS ORIGINAL EXAMINATION: TWO [...] 09/11/2023 12:30:03 PM Ordering Provider: BLADIMIR HUSTON [facility] ([place]) CT THORAX W/O CONTRASTon CT THORAX W/O CONTRAST ORIGINAL EXAMINATION: CT OF THE CHEST WITHOUT RTKBIFMY54/30/2023 10:32 am TECHNIQUE: CT of the chest [...] which may indicate residual scarring from remote infectious/inflammatory process rather than an interstitial lung disease. [...] Sign Date: 07/25/2023 2:14:49 PM Ordering Provider: [facility] ([place]) CT THORAX W/O CONTRASTon CT THORAX W/O [...] 03/29/2023 10:17:12 AM Ordering Provider: LUDA ANN [facility] Heart Perfusion W stress and W radionuclide Krystyna 06-29-2022 * * *Final Report* * * DATE OF EXAM: Jun 29 2022 11:09AM [facility] 0006 - [place] CARDIAC PERF STRESS/PHARM / PROCEDURE REASON: DYSPNEA ON EXERTION * * * * Physician Interpretation * * * * Stress Car Inspector Report: [facility] Date of service: 06/29/2022 8:16:44 AM Supervising physician: Michele Monreal MD PATIENT: Name: MS. EMPERATRIZ GHOSH Age: 72 years Gender: F The supervising physician was in the department and immediately available. Final PATIENT: Name: MS. EMPERATRIZ GHOSH Age: 72 [...] 60 minutes later. See administered doses below. [facility] Date of service: 06/29/2022 8:16:44 AM [...] There is no evidence of scarring. Final Stress ECG Report: [facility] Date of service: 06/29/2022 8:16:44 AM Ordering physician: LUDA ANN donor services specialist: Damari Garcia RN Interpreting physician: [...] 123/69 mmHg. The double product achieved was [id number]. Medications: Last Used BABY (more content not included)... [facility] RADIOLOGY Provider, Cristiane Hancock - 06/29/2022 * * *Final Report* * * DATE OF EXAM: Jun 29 2022 11:09AM [facility] 0006 - [place] CARDIAC PERF STRESS/PHARM / PROCEDURE REASON: DYSPNEA ON EXERTION * * * * Physician Interpretation * * * * Stress Car Inspector Report: [facility] Date of service: 06/29/2022 8:16:44 AM Supervising physician: Michele Monreal MD PATIENT: Name: MS. EMPERATRIZ GHOSH Age: 72 years Gender: F The supervising physician was in the department and immediately available. Final PATIENT: Name: MS. EMPERATRIZ GHOSH Age: 72 [...] 60 minutes later. See administered doses below. [facility] Date of service: 06/29/2022 8:16:44 AM [...] There is no evidence of scarring. Final Stress ECG Report: [facility] Date of service: 06/29/2022 8:16:44 AM Ordering physician: LUDA ANN donor services specialist: Damari Garcia RN Interpreting physician: [...] 123/69 mmHg. The double product achieved was [id number]. Medications: Last Used BABY ASPIRIN LUMIFY DETROL LA HYDROCODNE/ACETAMINOPHEN MVI VIT D3 FOLIC ACID LATANOPROST LIDOCAINE PATCH CYCLOBENAPRINE PRILOSEC ZOCOR MELOXICAM GABAPENTIN LISINOPRIL and HCTZ Resting ECG: Normal Sinus Rhythm Symptoms at rest: No symptoms Pharamcologic Protocol: R (more content not included)... [facility] Radiology Study observation (narrative) [facility] NM Heart Perfusion W stress and W radionuclide IVOrdered By: [facility] Provider on 06-29-2022 [facility] No Panel Informationon 06-15 [facility] SPIROMETRY - BASELINE AND PO ST DILATORon 06-15-2022 DLCO (ml/min/mmHg) 17.59 ml/min/mmHg [facility] DLCO/VA (ml/min/mmHg/L) 4.93 ml/min/mmHg/L [facility] ERV BOX (L) 0.09 L [facility] NCA57-72% POST (L/S) 1.37 L/S [facility] CRS07-82% PRE (L/S) 1.36 L/S [facility] FEV1 PRE (L) 1.65 L [facility] FEV1/FVC POST (%) 79 % [facility] FEV1/FVC PRE (%) 77 % [facility] FEV1_POST (L) 1.61 L [facility] FRC Box (L) 1.82 L [facility] FVC POST (L) 2.05 L [facility] FVC PRE (L) 2.13 L [facility] IC BOX (L) 1.69 L [facility] MVV (L/MIN) 54.05 L/MIN [facility] PEF POST (L/S) 6.08 L/S [facility] PEF PRE (L/S) 5.99 L/S [facility] RV Box (L) 1.63 L [facility] RV/TLC Box (%) 48 % [facility] TLC Box (L) 3.38 L [facility] VA (L) 3.58 L [facility] VC (L) BOX 1.78 L [facility] FLUOROSCOPY IN OR/PAIN MGTon 02-08-2022 FLUOROSCOPY IN [...] PINEDA M.D. Signed By: DANILO PINEDA M.D. [facility] XR FLUOROSCOPYon 02-08-2022 [facility] CHEST PA/AP AND LATERALon CHEST PA/AP AND [...] STROUD M.D. Signed By: JORI STROUD M.D. [facility] PTPNon 01-12-2022 PT Progress Note Normal [facility] PTPNon 01-09-2022 PT Progress Note Normal [facility] PTPN Physical Therapy Outpatient Treatment Note Medical [...] 85 pm, Hydrocodone-Acetaminophen 5-325 mg, Lidocaine-Prilocaine cream Rehabilitation Precautions/Restrictions: General Spine Precautions SUBJECTIVE Patient Report: PATIENT REPORTED THAT THE LEFT SIDE OF HER BACK IS ONLY A 12/03 [facility] PATIENT NAME: EMPERATRIZ GHOSH [address] [place] MEDICAL REC #: [id number] [place] [address] ADMIT DATE: SERVICE DATE: 01/09/22 Physical Therapy [...] Therapeutic Exercise: SEE GRID Electrical Stimulation (unattended): MH W/ IFC AT [...] AND COMMUNITY RELATED TASKS IN 2-4 WEEKS. [facility] PATIENT NAME: EMPERATRIZ GHOSH [address] [place] MEDICAL REC #: [id number] [place] [address] ADMIT DATE: SERVICE DATE: 01/09/22 Physical Therapy Progress Note ATTENDING PHY: Fatoumata Lyn DO Status: ADDRESSED Range of Motion: PT TO ACHIEVE TRUNK AROM TO WFL/WNL MOST MOTIONS WITH LESS PAIN ON RETURN TO STANDING FROM FLEXED TRUNK POSTURE IN 2-4 WEEKS. Status: ADDRESSED Strength: PT TO (more content not included)... Normal [facility] 01-04-2022 PT Progress Note Normal [facility] Physical Therapy Outpatient Treatment Note Medical Diagnosis: [...] 85 pm, Hydrocodone-Acetaminophen 5-325 mg, Lidocaine-Prilocaine cream Rehabilitation Precautions/Restrictions: General Spine Precautions SUBJECTIVE Patient Report: PATIENT REPORTED THAT HER PAIN IS ABOUT 5/10 THIS DATE. SHE [facility] PATIENT NAME: EMPERATRIZ GHOSH [address] [place] MEDICAL REC #: [id number] [place] [address] ADMIT DATE: SERVICE DATE: 01/04/22 Physical Therapy [...] of 10. Interventions: THEREX, STM, IFC W/ MH OBJECTIVE General Observation: [...] HOLD IN HOOKLYING POSITION. Electrical Stimulation (unattended): W/ IFC AT HIGH/LOW [...] OF THE SESSION BUT DID NOT RATE. [facility] PATIENT NAME: EMPERATRIZ GHOSH [address] [place] MEDICAL REC #: [id number] [place] [address] ADMIT DATE: SERVICE DATE: 01/04/22 Physical Therapy Progress Note ATTENDING PHY: Fatoumata Lyn DO Clinical Status Changes: Patient has not experienced significant, unusual or unexpected change in clinical status since their last visit. PLAN Treatment Frequency, Duration, and Interventions: Continue Physical Therapy to achieve goals per previously esta (more content not included)... Normal [facility] 01-02-2022 PT Progress Note Normal [facility] PTPN Physical Therapy Outpatient Treatment Note Medical [...] 85 pm, Hydrocodone-Acetaminophen 5-325 mg, Lidocaine-Prilocaine cream Rehabilitation Precautions/Restrictions: General Spine Precautions SUBJECTIVE Patient Report: PATIENT REPORTED THAT SHE CONTINUES TO HAVE SOME PAIN AND RATED [facility] PATIENT NAME: EMPERATRIZ GHOSH [address] [place] MEDICAL REC #: [id number] [place] [address] ADMIT DATE: SERVICE DATE: 01/02/22 Physical Therapy Progress Note ATTENDING PHY: Fatoumata Lyn DO AT 02/02. Temperature and COVID check completed. Temperature WNL and Negative for COVID exposure and symptoms Patient/Caregiver Goals: Be able to walk with minimum pain Pain: Patient currently has pain. Patient reports a pain level of 6 out of 10. Interventions: STM, PAOLA, IFC W/ OBJECTIVE General Observation: PT IS [...] TO WFL/WNL MOST MOTIONS WITH LESS PAIN [facility] PATIENT NAME: EMPERATRIZ GHOSH [address] [place] MEDICAL REC #: [id number] [place] [address] ADMIT DATE: SERVICE DATE: 01/02/22 Physical Therapy [...] AND ROM (more content not included)... Normal [facility] 12-28-2021 PT Progress Note Normal [facility] PTPN Physical Therapy Outpatient Treatment Note Medical [...] 85 pm, Hydrocodone-Acetaminophen 5-325 mg, Lidocaine-Prilocaine cream Rehabilitation Precautions/Restrictions: General Spine Precautions SUBJECTIVE Patient Report: PATIENT REPORTED THAT WHEN SHE LEFT THE LAST SESSION SHE FELT [facility] PATIENT NAME: EMPERATRIZ GHOSH [address] [place] MEDICAL REC #: [id number] [place] [address] ADMIT DATE: SERVICE DATE: 12/28/21 Physical Therapy [...] STRENGTHENING, GENTLE TRUNK/HIP STRETCHING PT TOLERATES, HEP [facility] PATIENT NAME: EMPERATRIZ GHOSH [address] [place] MEDICAL REC #: [id number] [place] [address] ADMIT DATE: SERVICE DATE: 12/28/21 Physical Therapy Progress Note ATTENDING PHY: Fatoumata Lyn DO Development of Plan of Care: There was no change to plan of care today. The pat (more content not included)... Normal [facility] 12-26-2021 PT Progress Note Normal [facility] PTPN Physical Therapy Outpatient Treatment Note Medical [...] 85 pm, Hydrocodone-Acetaminophen 5-325 mg, Lidocaine-Prilocaine cream Rehabilitation Precautions/Restrictions: General Spine Precautions SUBJECTIVE Patient Report: PATIENT REPORTED THAT SHE CONTINUES TO HAVE PAIN AND TIGHTNESS. [facility] PATIENT NAME: EMPERATRIZ GHOSH [address] [facility] #: [id number] [place] [address] ADMIT DATE: SERVICE DATE: 12/26/21 Physical Therapy [...] HOLD IN HOOKLYING POSITION. Electrical Stimulation (unattended): W/ IFC AT HIGH/LOW [...] KNOWLEDGEABLE IN ABDOMINAL, GLUTEAL, HIP STRENGTHENING EXERCISES [facility] PATIENT NAME: EMPERATRIZ GHOSH [address] MEDICAL REC #: [id number] [place] [address] ADMIT DATE: SERVICE DATE: 12/26/21 Physical Therapy Progress Note ATTENDING PHY: Fatoumata Lyn DO AND ROM EXERCISES IF TOLERATED AND DO NOT EXACERBATE HER PAIN LEVEL. EDUCATE PT ON PROPER POSTURES AND BODY MECHANICS FOR LOWER BACK FOR ADL TASKS TO REDUCE SYMPTOM EXACERBATION BY ANY AMOUNT. Status: ADDRESSED Response to Visit: PATIENT TOLERATED TREATMENT FAIRLY WELL (more content not included)... Normal [facility] 12-20-2021 PT Progress Note [facility] Physical Therapy Outpatient Treatment Note Medical Diagnosis: [...] 85 pm, Hydrocodone-Acetaminophen 5-325 mg, Lidocaine-Prilocaine cream Rehabilitation Precautions/Restrictions: General Spine Precautions SUBJECTIVE Patient Report: PATIENT REPORTED THAT SHE FELT SOME RELIEF FOR A COUPLE HOURS [facility] PATIENT NAME: EMPERATRIZ GHOSH [address] [facility] MEDICAL REC #: [id number] [place] [address] ADMIT DATE: SERVICE DATE: 12/20/21 Physical Therapy [...] Visit Number: Today's visit is number 3 [facility] PATIENT NAME: EMPERATRIZ GHOSH [facility] [address] [facility] MEDICAL REC #: [id number] [place] [address] ADMIT DATE: SERVICE DATE: 12/20/21 Physical Therapy Progress Note ATTENDING PHY: Fatoumata Lyn DO Services: Total Billed: 40 minutes (Timed: 40, Untimed: 0) 15.00 Timed: [06065] PT estim unattended EA 15 min 25.00 Timed: [97750] PT -MANU (more content not included)... Normal [facility] 12-18-2021 PT Progress Note Normal [facility] Physical Therapy Outpatient Treatment Note Medical Diagnosis: [...] 85 pm, Hydrocodone-Acetaminophen 5-325 mg, Lidocaine-Prilocaine cream Rehabilitation Precautions/Restrictions: General Spine Precautions SUBJECTIVE Patient Report: PATIENT REPORTED THAT HER PAIN IS ABOUT 8/10 WHEN SHE IS UP AND [facility] PATIENT NAME: EMPERATRIZ GHOSH [facility] [address] [facility] MEDICAL REC #: [id number] [place] [address] ADMIT DATE: SERVICE DATE: 12/18/21 Physical Therapy Progress Note ATTENDING PHY: Fatoumata Lyn DO MOVING. SHE REPORTED THAT WHEN SHE [...] WITH PILLOW BETWEEN KNEES. Electrical Stimulation (unattended): MH W/ IFC AT [...] AND DO NOT EXACERBATE HER PAIN LEVEL. [facility] PATIENT NAME: EMPERATRIZ GHOSH [address] [facility] MEDICAL REC #: [id number] [place] [address] ADMIT DATE: SERVICE DATE: 12/18/21 Physical Therapy Progress Note ATTENDING PHY: Fatoumata Lyn DO EDUCATE PT ON PROPER POSTURES AND BODY MECHANICS FOR LOWER BACK FOR ADL TASKS TO REDUCE SYMPTOM EXACERBATION BY ANY (more content not included)... Normal [facility] [place] FLUOROSCOPY IN OR/PAIN [facility] 09-21-2021 FLUOROSCOPY IN OR/PAIN [facility] FLUOROSCOPY IN [...] BUNDY M.D. Signed By: AMNA BUNDY M.D. Normal [facility] [place] FLUOROSCOPY IN OR/PAIN [facility] 08-10-2021 FLUOROSCOPY IN [...] STROUD M.D. Signed By: JORI STROUD M.D. [facility] SURGon 05-08-2021 SURG --------- ----- Patient: SEKOUMAGUIEMPERATRIZ R ----- SPECIMEN: [id number] Collection Date: 05/08/21 Received: 05/09/21 Status: FABRICE Thakkar Dr.: Izzy Leon MD Ph# Othr. DrKatie: Luda Ann DO Material for Examination: A [...] survive processing. Entirely submitted in cassette A1. ----- [facility] NAME: EMPERATRIZ GHOSH Pathology and Laboratory Medicine UNIT#: [id number] LOC: [place] Credit Rating Checker: Apple Elliott M.D. [facility]#: [id number] ROOM/BED: [employer] [facility] : 48 AGE/SEX: 70/F ORD.Izzy Cash MD CONTINUED ON NEXT PAGE ----- Patient: EMPERATRIZ GHOSH Unit#: [id number] (continued) SPECIMEN: [id number] GROSS DESCRIPTION B. The [...] Phonetic and/or minor grammatical errors may exist. ----- [facility] NAME: EMPERATRIZ GHOSH Pathology and Laboratory Medicine UNIT#: [id number] LOC: [place] Credit Rating Checker: Apple Elliott M.D. [facility] [id number] ROOM/BED: [facility] : 48 AGE/SEX: 70/F ORD.Izzy Cash MD END OF REPORT Normal [facility] [place] FLUOROSCOPY IN OR/PAIN [facility] 03-22-2021 FLUOROSCOPY IN [...] ---- Signed By: Donovan Díaz MD PhD [email or web address] Dictated: 03/22/2021 12:41 PM Signed: 03/22/2021 12:41 PM Reported By: DONOVAN DÍAZ M.D. Signed By: DONOVAN DÍAZ M.D. [facility] Vital Signs Date Time Vital Sign Value Performing Clinician Amber herrmann 05-13-2025 11:00-0400 Body height 152.[address] Jose Juan Springer MD Work Phone: [facility] 05-13-2025 11:00-0400 Body mass index (BMI) [Ratio] 44.1 kg/m2 Dr. Jose Juan Springer MD Work Phone: [facility] 05-13-2025 11:00-0400 Body weight 102.[address] Jose Juan Springer MD Work Phone: [facility] 02-25-2025 14:46-0400 Body height 152.[address] Jose Juan Springer MD Work Phone: [facility] 02-25-2025 14:46-0400 Body mass index (BMI) [Ratio] 44.1 kg/m2 Dr. Jose Juan Springer MD Work Phone: [facility] 02-25-2025 14:46-0400 Body weight 102.[address] Jose Juan Springer MD Work Phone: [facility] 06-25-2024 08:28-0400 Body height 152.4 cm Mahamed Cardona MD Work Phone: [facility] 06-25-2024 08:28-0400 Body mass index (BMI) [Ratio] 43.36 kg/m2 Mahamed Cardona MD Work Phone: [facility] 06-25-2024 08:28-0400 Body weight 100.7 kg Mahamed Cardona MD Work Phone: [facility] 06-25-2024 08:28-0400 Diastolic blood pressure 80 mm[Hg] Mahamed Cardona MD Work Phone: [facility] 06-25-2024 08:28-0400 Heart rate 95 /min Mahamed Cardona MD Work Phone: [facility] 06-25-2024 08:28-0400 SaO2% (BldA) [Mass fraction] 91 % Mahamed Cardona MD Work Phone: [facility] 06-25-2024 08:28-0400 Systolic blood pressure 117 mm[Hg] Mahamed Cardona MD Work Phone: [facility] 12-18-2023 10:13-0400 Body temperature 97.2 [degF] Maynor Robles PA-C Work Phone: [facility] 12-18-2023 10:13-0400 Diastolic blood pressure 59 mm[Hg] Maynor Robles PA-C Work Phone: [facility] 12-18-2023 10:13-0400 Heart rate 104 /min Maynor Robles PA-C Work Phone: [facility] 12-18-2023 10:13-0400 Respiratory rate 18 /min Maynor Robles PA-C Work Phone: [facility] 12-18-2023 10:13-0400 SaO2% (BldA) [Mass fraction] 94 % Maynor Robles PA-C Work Phone: [facility] 12-18-2023 10:13-0400 Systolic blood pressure 92 mm[Hg] Maynor Robles PA-C Work Phone: [facility] 04-15-2023 15:20-0400 Body height 152.4 cm Fatoumata Lyn DO Work Phone: [facility] 04-15-2023 15:20-0400 Body weight 101.61 kg Fatoumata Lyn DO Work Phone: [facility] 04-15-2023 15:20-0400 Diastolic blood pressure 86 mm[Hg] Alexissyl Lyn DO Work Phone: [facility] 04-15-2023 15:20-0400 Heart rate 107 /min Fatoumata Lyn DO Work Phone: [facility] 04-15-2023 15:20-0400 Respiratory rate 19 /min Alexissyl Lyn DO Work Phone: [facility] 04-15-2023 15:20-0400 SaO2% (BldA) [Mass fraction] 99 % Alexissyl Lyn DO Work Phone: [facility] 04-15-2023 15:20-0400 Systolic blood pressure 140 mm[Hg] Fatoumata Lyn DO Work Phone: [facility] 01-07-2023 11:33-0400 Body height 155.4 cm Alexissyl Lyn DO Work Phone: [facility] 01-07-2023 11:33-0400 Body weight 105.23 kg Fatoumata Lyn DO Work Phone: [facility] 01-07-2023 11:33-0400 Diastolic blood pressure 85 mm[Hg] Alexissyl Lyn DO Work Phone: [facility] 01-07-2023 11:33-0400 Heart rate 98 /min Fatoumata Lyn DO Work Phone: [facility] 01-07-2023 11:33-0400 Respiratory rate 19 /min Alexissyl Lyn DO Work Phone: [facility] 01-07-2023 11:33-0400 SaO2% (BldA) [Mass fraction] 94 % Fatoumata Lyn DO Work Phone: [facility] 01-07-2023 11:33-0400 Systolic blood pressure 142 mm[Hg] Fatoumata Lyn DO Work Phone: [facility] 10-29-2022 10:47-0500 Body height 155.4 cm Fatoumata Lyn DO Work Phone: [facility] 10-29-2022 10:47-0500 Body weight 104.78 kg Fatoumata Lyn DO Work Phone: [facility] 10-29-2022 10:47-0500 Diastolic blood pressure 94 mm[Hg] Fatoumata Lyn DO Work Phone: [facility] 10-29-2022 10:47-0500 Heart rate 109 /min Alexissyl Lyn DO Work Phone: [facility] 10-29-2022 10:47-0500 Respiratory rate 19 /min Fatoumata Lyn DO Work Phone: [facility] 10-29-2022 10:47-0500 SaO2% (BldA) [Mass fraction] 95 % Alexissyl Riki DO Work Phone: [facility] 10-29-2022 10:47-0500 Systolic blood pressure 154 mm[Hg] Fatoumata Lyn DO Work Phone: [facility] 10-02-2022 14:09-0500 Body height 155.4 cm Fatoumata Lyn DO Work Phone: [facility] 10-02-2022 14:09-0500 Body weight 105.69 kg Fatoumata Lyn DO Work Phone: [facility] 10-02-2022 14:09-0500 Diastolic blood pressure 62 mm[Hg] Alexissyl Lyn DO Work Phone: [facility] 10-02-2022 14:09-0500 Heart rate 112 /min Fatoumata Lyn DO Work Phone: [facility] 10-02-2022 14:09-0500 Respiratory rate 19 /min Fatoumata Lyn DO Work Phone: [facility] 10-02-2022 14:09-0500 SaO2% (BldA) [Mass fraction] 93 % Fatoumata Lyn DO Work Phone: [facility] 10-02-2022 14:09-0500 Systolic blood pressure 101 mm[Hg] Alexissyl Lyn DO Work Phone: [facility] 04-16-2022 09:55-0400 Body height 161.5 cm Alexissyl Lyn DO Work Phone: [facility] 04-16-2022 09:55-0400 Body weight 107.96 kg Alexissyl Lyn DO Work Phone: [facility] 04-16-2022 09:55-0400 Diastolic blood pressure 85 mm[Hg] Alexissyl Lyn DO Work Phone: [facility] 04-16-2022 09:55-0400 Heart rate 107 /min Fatoumata Lyn DO Work Phone: [facility] 04-16-2022 09:55-0400 Respiratory rate 19 /min Alexissyl Lyn DO Work Phone: [facility] 04-16-2022 09:55-0400 SaO2% (BldA) [Mass fraction] 98 % Fatoumata Lyn DO Work Phone: [facility] 04-16-2022 09:55-0400 Systolic blood pressure 130 mm[Hg] Fatoumata Riki DO Work Phone: [facility] 02-15-2022 10:40-0400 Body height 161.5 cm Fatoumata Riki DO Work Phone: [facility] 02-15-2022 10:40-0400 Body weight 107.96 kg Fatoumata Riki DO Work Phone: [facility] 02-15-2022 10:40-0400 Diastolic blood pressure 92 mm[Hg] Fatoumata Lyn DO Work Phone: [facility] 02-15-2022 10:40-0400 Heart rate 111 /min Fatoumata Lyn DO Work Phone: [facility] 02-15-2022 10:40-0400 Respiratory rate 19 /min Fatoumata Lyn DO Work Phone: [facility] 02-15-2022 10:40-0400 SaO2% (BldA) [Mass fraction] 94 % Fatoumata Lyn DO Work Phone: [facility] 02-15-2022 10:40-0400 Systolic blood pressure 127 mm[Hg] Fatoumata Lyn DO Work Phone: [facility] Encounters Encounter Date Encounter Type Care Provider Facility Start: 06-17-2025 ambulatory Jose Juan Springer [facility] Start: 05-27-2025 [facility] Start: 05-26-2025 ambulatory Jose Juan Springer [facility] Start: 05-26-2025 ambulatory Jose Juan Springer [facility] Start: 05-20-2025 ambulatory Luda Marissa Facility:[facility] Start: 05-13-2025 End: 05-13-[address] Jose Juan Springer MD -[facility] Work Phone: Start: 05-13-2025 End: 05-13-[address] Jose Juan Springer MD Work Phone: -[facility] Start: 04-22-2025 End: 04-22-[address] [facility] Work [facility]: Start: 04-22-2025 End: 04-22-[address] Jose Juan Springer MD Work Phone: -[facility] Start: 03-30-2025 End: 03-30-[address] Jose Juan Springer MD Work Phone: -[facility] Start: 03-30-2025 End: 03-30-[address] Jose Juan Springer MD -[facility] Work Phone: Start: 03-30-2025 End: 03-30-2025 ambulatory Jose Juan Springer Facility:[facility] Start: 02-25-2025 End: 02-25-[address] Rodriguez Coleman MD -[facility] Start: 02-25-2025 End: 02-25-2025 ambulatory Jose Juan Springer [facility] Start: 09-21-2024 End: 09-21-2024 ambulatory UNKNOWN PROVIDER Facility:[id number] Start: 09-02-2024 End: 09-02-2024 Telephone encounter Mahamed Cardona MD Work Phone: [facility] Comment on above: Patient Update (Anyi ent notified of heart cath 09/18/2024 @ 8:00AM. 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 Please place order in chart. Janet Wiley LPN/) Start: 08-20-2024 End: 08-20-2024 Telephone encounter Mahamed Cardona MD Work Phone: [facility] Comment on above: Medication Problem [...] Telephone encounter Mahamed Cardona MD Work Phone: [facility] Start: 06-25-2024 End: 06-25-2024 Office outpatient visit 40 minutes Mahamed Cardona MD Work Phone: [facility] Comment on above: Coronary artery calc ification seen on CT scan (Primary Dx); Dyspnea, unspecified type; Hypercholesterolemia; Primary hypertension; BMI 40.0-44.9, adult (HCC); Encounter for screening for cardiovascular disorders Start: 06-25-2024 End: 06-25-2024 ambulatory MAHAMED CARDONA Facility:[id number] Start: 06-23-2024 Patient encounter status Madi Cardona MD Work Phone: [facility] Start: 06-23-2024 Preoperative state Mahamed harkins MD Work Phone: [facility] Start: 06-18-2024 End: 06-18-[address] LUDA ANN DO Facility:A Start: 03-12-2024 Telephone encounter Mahamed Cardona MD Work Phone: [facility] Comment on above: Appointment Start: 02-19-2024 Telephone encounter Jaci marshall FORM GRADER.ENGLISH LANGUAGE LEARNER TUTOR Work Phone: [facility] Comment on above: Personal Injury Attorney - O ther Appointment Start: 02-13-2024 ambulatory KARY CHASE Facility:[id number] Start: 02-13-2024 End: 02-13-2024 Subsequent hospital visit by physician Xr [facility] [place] Work Phone: [facility] Start: 02-03-2024 End: 02-03-2024 ambulatory EVERETT MCCULLOUGH MD Facility:A Start: 01-22-2024 Refill Maynor san PA-C Work Phone: [facility] Comment on above: Refill Request Start: 12-31-2023 Telephone encounter Maynor Robles PA-C Work Phone: [facility] Comment on above: pain pump referral Start: 12-23-2023 End: 12-23-2023 ambulatory Laura Shaffer PT, DPT Work Phone: [facility] [place] Comment on above: Decreased range of m otion of left knee (Primary Dx); Presence of left artificial knee joint; Weakness Start: 12-18-2023 End: 12-18-2023 ambulatory Dwain Kolb WAREHOUSE GUARD [facility] [place] Comment on above: [...] Start: 12-18-2023 End: 12-18-2023 ambulatory MAYNOR ROBLES Facility:[id number] Start: 12-16-2023 Telephone encounter Maynor Robles PA-C Work Phone: [facility] Comment on above: IT pump referral Start: 12-11-2023 End: 12-11-2023 ambulatory Dwain Kolb WAREHOUSE GUARD [facility] [place] Comment on above: Decreased range of m otion of left knee (Primary Dx); Presence of left artificial knee joint; Weakness Start: 12-09-2023 Telephone encounter Boubacar Andrews MD Work Phone: [facility] Comment on above: Pain Pump Start: 12-09-2023 End: 12-09-2023 ambulatory Dwain Kolb WAREHOUSE GUARD [facility] [place] Comment on above: Decreased range of m otion of left knee (Primary Dx); Presence of left artificial knee joint; Weakness Start: 12-04-2023 End: 12-04-2023 ambulatory Dwain Hood Ciccarebenezer WAREHOUSE GUARD [facility] [place] Comment on above: Decreased range of m otion of left knee (Primary Dx); Presence of left artificial knee joint; Weakness Start: 12-02-2023 End: 12-02-2023 ambulatory Dwain Hood Ciccarone W[employer]HOUSE GUARD [facility] [place] Comment on above: Decreased range of m otion of left knee (Primary Dx); Presence of left artificial knee joint; Weakness Start: 11-27-2023 End: 11-27-2023 ambulatory Laura Shaffer PT, DPT Work Phone: [facility] [place] Comment on above: Decreased [...] Start: 11-21-2023 End: 11-21-2023 ambulatory MAYA GOEL Facility:[id number] Start: 11-19-2023 End: 11-19-2023 Refill Maynor Robles PA-C Work Phone: Pain [facility] Comment on above: Refill Request Decreased range of m otion of left knee (Primary Dx); Presence of left artificial knee joint; Weakness Start: 11-15-2023 End: 11-15-2023 ambulatory Dwain Erwin Kolb [facility] [place] Comment on above: Decreased range of m otion of left knee (Primary Dx); Presence of left artificial knee joint; Weakness Start: 11-13-2023 End: 11-13-2023 ambulatory Laura Shaffer PT, DPT Work Phone: [facility] [place] Comment on above: Decreased range of m otion of left knee (Primary Dx); Presence of left artificial knee joint; Weakness Start: 11-11-2023 End: 11-11-2023 ambulatory Laura Shaffer PT, DPT Work Phone: [facility] [place] Comment on above: Decreased range of m otion of left knee (Primary Dx); Presence of left artificial knee joint; Weakness Start: 11-06-2023 End: 11-06-2023 ambulatory Laura Shaffer PT, DPT Work Phone: [facility] [place] Comment on above: Decreased range of m otion of left knee (Primary Dx); Presence of left artificial knee joint; Weakness Start: 11-04-2023 End: 11-04-2023 ambulatory Laura Shaffer PT, DPT Work Phone: [facility] [place] Comment on above: Decreased range of m otion of left knee (Primary Dx); Presence of left artificial knee joint; Weakness Start: 11-01-2023 End: 11-01-2023 ambulatory Dwain Kolb WAREHOUSE GUARD [facility] [place] Comment on above: Decreased range of m otion of left knee (Primary Dx); Presence of left artificial knee joint; Weakness Start: 10-30-2023 End: 10-30-2023 ambulatory Laura Shaffer PT, DPT Work Phone: [facility] [place] Comment on above: Decreased range of m otion of left knee (Primary Dx); Presence of left artificial knee joint; Weakness Start: 10-28-2023 End: 10-28-2023 ambulatory Dwain Hood Ciccarone WAREHOUSE GUARD [facility] [place] Comment on above: Decreased range of m otion of left knee (Primary Dx); Presence of left artificial knee joint; Weakness Start: 10-25-2023 End: 10-25-2023 ambulatory Dwain Hood Ciccarone WAREHOUSE GUARD [facility] [place] Comment on above: Decreased range of m otion of left knee (Primary Dx); Presence of left artificial knee joint; Weakness Start: 10-23-2023 End: 10-23-2023 ambulatory Dwain Hood Ciccarone WAREHOUSE GUARD [facility] [place] Comment on above: Decreased range of m otion of left knee (Primary Dx); Presence of left artificial knee joint; Weakness Start: 10-18-2023 End: 10-18-2023 ambulatory Dwain Hood Ciccarone WAREHOUSE GUARD [facility] [place] Comment on above: Decreased range of m otion of left knee (Primary Dx); Presence of left artificial knee joint; Weakness Start: 10-17-2023 Telephone encounter Boubacar Andrews MD Work Phone: [facility] Comment on above: Patient Update (S/p TKR) Start: 10-16-2023 End: 10-16-2023 ambulatory Laura Shaffer PT, DPT Work Phone: [facility] [place] Comment on above: Decreased range of m otion of left knee (Primary Dx); Presence of left artificial knee joint; Weakness Start: 10-14-2023 End: 10-14-2023 ambulatory Dwain Kolb [facility] [place] Comment on above: Decreased range of m otion of left knee (Primary Dx); Presence of left artificial knee joint; Weakness Start: 10-11-2023 End: 10-11-2023 ambulatory Maya Goel PTA [facility] [place] Comment on above: Decreased range of m otion of left knee (Primary Dx); Presence of left artificial knee joint; Weakness Start: 10-09-2023 End: 10-09-2023 ambulatory Dwain Kolb WAREHOUSE GUARD [facility] [place] Comment on above: Decreased range of m otion of left knee (Primary Dx); Presence of left artificial knee joint; Weakness Start: 10-07-2023 End: 10-07-2023 ambulatory Laura Shaffer PT, DPT Work Phone: [facility] [place] Comment on above: Decreased range of m otion of left knee (Primary Dx); Presence of left artificial knee joint; Weakness Start: 10-03-2023 End: 10-03-2023 ambulatory Maya Goel PTA [facility] [place] Comment on above: Decreased range of m otion of left knee (Primary Dx); Weakness; Presence of left artificial knee joint Start: 10-02-2023 End: 10-02-2023 ambulatory Laura Shaffer PT, DPT Work Phone: [facility] [place] Comment on above: Decreased range of m [...] MCCULLOUGH MD Facility:A Start: 07-10-2023 End: 07-10-2023 [facility] Work Phone: [facility] Comment on above: Lumbar postlaminecto my syndrome [...] 06-05-2023 Patient encounter procedure EVERETT MCCULLOUGH MD [facility] Start: 04-15-2023 End: 04-15-2023 Patient encounter [...] Request Start: 03-21-2023 Telephone encounter Jaci marshall FORM GRADER.ENGLISH LANGUAGE LEARNER TUTOR Work Phone: [facility] Comment on above: Personal Injury Attorney - O ther Start: 02-13-2023 End: 02-13-2023 [facility] Jaci Nixon FORM GRADER.ENGLISH LANGUAGE LEARNER TUTOR Work Phone: [facility] [place] Comment on above: Lumbar postlaminecto my syndrome [...] obesity (HCC) Start: 12-03-2022 Telephone encounter Fatoumata Mena Riki DO Work Phone: [facility] Comment on above: Orders Start: 11-20-2022 Refill Fatoumata Boyd DO Work Phone: [facility] Comment on above: Refill Request Start: 10-30-2022 Refill Jaci E Hussain CONTEENGLISH LANGUAGE LEARNER TUTOR Work Phone: [facility] Comment on [...] 10-16-2022 Patient encounter procedure [facility] [facility] Start: 10-10-2022 Refill Fatoumata Boyd DO Work Phone: Pain Management Start: 10-02-2022 End: 10-02-2022 Patient encounter procedure Fatoumata Lyn DO Work [...] /reports status Fatoumata Lyn DO Work Phone: [facility] Start: 09-28-2022 Refill Fatoumata Boyd DO Work Phone: Pain Management Start: 09-26-2022 Telephone encounter Fatoumata Lyn DO Work Phone: Pain Management Comment on above: Appointment pacc hx call Start: 09-19-2022 End: 09-19-2022 [facility] Jaci Nixon FORM GRADER.ENGLISH LANGUAGE LEARNER TUTOR Work Phone: Pain [facility] Marcus Comment on above: Lumbar postlaminecto my [...] Management Start: 08-21-2022 Telephone encounter Jaci marshall FORM GRADER.ENGLISH LANGUAGE LEARNER TUTOR Work Phone: Pain [facility] Sabael Comment on above: Orders Start: 08-06-2022 Refill Fatoumata Boyd DO Work Phone: Pain Management Comment on above: Refill Request Start: 07-11-2022 Transcribe Orders Luda Med davidson DO Work Phone: [facility] Comment on above: Obstructive sleep ap radha (Primary Dx) Start: 06-29-2022 End: 06-29-2022 Subsequent hospital visit by physician Prep Room 1 [facility] Nuclear Medicine Comment on above: Other forms of dyspn ea [R06.09] Start: 06-27-2022 Telephone encounter Fatoumata Lyn DO Work Phone: Pain Management Comment on above: Schedule Pump trial Start: 06-20-2022 Chart abstracting Beth izquierdo CONTENT MANAGEMENT CONSULTANT [facility] Start: 06-15-2022 End: 06-15-2022 ambulatory Pulm Mob Work Phone: [facility] Comment on above: Spirometry Start: 06-15-2022 End: 06-15-2022 Patient encounter procedure Pulm [facility] Mob Work Phone: [facility] Start: 06-13-2022 Refill Fatoumata [place] huston DO Work Phone: Pain Management Comment on above: Refill Request Start: 06-11-2022 Refill Alexissyl [place] huston DO Work Phone: Pain Management Comment on above: Refill Request Start: 05-02-2022 Refill Alexissyl [place] huston DO Work Phone: Pain Management Comment on above: Refill Request Start: 04-16-2022 End: 04-16-2022 Patient encounter procedure Fatoumata Lyn DO Work Phone: Pain Management Comment on above: Chronic pain syndrom e (Primary Dx); Lumbar radiculopathy; DDD (degenerative disc disease), lumbar Start: 04-11-2022 Chart abstracting Fatoumata Lyn DO Work Phone: Pain Management Start: 03-13-2022 End: 03-13-2022 ambulatory Jaci E Nixon FORM GRADER.ENGLISH LANGUAGE LEARNER TUTOR Work Phone: Pain Management Comment on above: Chronic pain syndrom e (Primary Dx); Myalgia; Acute arthropathy; Radiculitis, thoracic Start: 03-13-2022 End: 03-13-2022 Telemedicine consultation with patient Jacijane Nixon FORM GRADER.ENGLISH LANGUAGE LEARNER TUTOR Work Phone: [facility] Start: 02-22-2022 Refill Jaci Nixon FORM GRADER.ENGLISH LANGUAGE LEARNER TUTOR Work Phone: Pain Management Comment on above: Refill Request Start: 02-15-2022 End: 02-15-2022 Patient encounter procedure Fatoumata Lyn DO Work Phone: Pain Management Comment on above: Intervertebral disc disorder with radiculopathy of lumbar region; DDD (degenerative disc disease), lumbar Start: 02-08-2022 End: 02-08-2022 Subsequent hospital visit by physician Fatoumata Lyn DO Work Phone: [facility] Comment on above: LUMBAR SPONDYLOSIS Start: 01-12-2022 End: 01-12-2022 Subsequent hospital visit by physician Luda Ann DO Work Phone: [facility] Comment on above: R06.02 Start: 12-25-2021 End: 12-25-2021 Subsequent hospital visit by physician Fatoumata Lyn Work Phone: [facility] Comment on above: LUMBAR DEGENERATIVE DISC DISEASE Start: 12-12-2021 End: 12-12-2021 Subsequent hospital visit by physician Fatoumata Lyn Work Phone: [facility] Comment on above: LUMBAR DEGENERATIVE DISC DISEASE Start: 11-14-2021 End: 11-14-2021 Subsequent hospital visit by physician Jaci Nixon MD Work Phone: [facility] Comment on above: VIRTUAL Start: 10-20-2021 End: 10-20-2021 Subsequent hospital visit by physician Jaci Nixon [facility] Comment on above: VIRTUAL Start: 09-21-2021 End: 09-21-2021 Subsequent hospital visit by physician Fatoumata Lyn Work Phone: [facility] Comment on above: M46.96 Start: 09-18-2021 End: 09-18-2021 Subsequent hospital visit by physician Jaci Nixon [facility] Comment on above: VIRTUAL Start: 09-14-2021 End: 09-14-[address] ZACHARY FORBES MD [facility] Start: 08-15-2021 End: 08-15-2021 Subsequent hospital [...] Start: 10-27-2020 End: 10-27-2020 Patient encounter procedure [facility] Start: 09-29-2020 End: 09-29-2020 Patient encounter procedure [facility] Procedures Date Procedure Procedure Detail Performing Clinician Start: 03-30-2025 MRI of lumbar spine Dr. Jose Juan Springer MD Work Phone: Start: 02-25-2025 X-ray of lumbosacral spine Dr. Jose Juan Springer MD Work Phone: Start: 02-25-[address] Jose Juan Springer MD Work Phone: Start: 08-20-2024 Myocardial spect multiple studies Mahamed Cardona MD Work Phone: Start: 02-13-2024 Radex spine lumbscrl compl w/bending views min 6 Ankita Kim FORM GRADER.GOLD TOOLER Work Phone: Start: 10-29-2022 H/O: surgery History of art hroplasty [Z98.890 (ICD-10-CM)] Fatoumata Lyn DO Work Phone: Start: 06-29-2022 Myocardial spect multiple studies Luda Ann DO Work Phone: Start: 06-15-2022 Brncdilat rspse spmt ry pre&post-brncdilat admn Provider [facility] Start: 06-15-2022 MAXIMAL VOLUNTARY VENTILATION Provider [facility] Start: 02-08-2022 Fluoroscopy up to 1 hour physician/qhp time Fatoumata Mena Riki DO Work Phone: Start: 12-12-2021 Pt evaluation Start: 03-07-2021 Colonoscopy Fatoumata Lyn DO Work Phone: Start: History of lumbar fusion DR ZACHARY FORBES MD Comment on above: L1-27 Dec 2011 L3-28 November [address] JOYCELYN FORBES MD Comment on above: Right H/O: surgery History of arthr oplasty [Z98.890 (ICD-10-CM)] Fatoumata Mena Riki DO Work Phone: H/O: surgery History of arthr oplasty [Z98.890 (ICD-10-CM)] Fatoumata Mena Riki DO Work Phone: H/O: surgery History of arthr oplasty [Z98.890 (ICD-10-CM)] Jaci Nixon FORM GRADER.ENGLISH LANGUAGE LEARNER TUTOR Work Phone: H/O: surgery History of arthr oplasty [Z98.890 (ICD-10-CM)] Fatoumata Lyn DO Work Phone: H/O: surgery History of arthr oplasty [Z98.890 (ICD-10-CM)] Jaci Nixon FORM GRADER.ENGLISH LANGUAGE LEARNER TUTOR Work Phone: Hysterectomy DR ZACHARY Hawley Insertion of hip prosthesis DR ZACHARY FORBES MD Comment on above: Right Left Operation on bladder DR JOYCELYN FORBES MD Tonsillectomy DR ZACHARY FORBES MD Plan of Treatment Date Care Activity Detail Author Start: 01-22-2033 Urine microalbumin profile DTaP,Tdap,Td Vaccine (2 - Td or Tdap) [facility] Start: 09-07-2025 DIABETES SCREEN DIABETES SCREEN [facility] Start: 09-07-2025 Diabetes Screening Diabetes Screenin g [facility] Start: 02-25-2025 X-ray of lumbosacral spine L/S Spine Min 4 Views [facility] Start: 02-25-2025 XR Spine Lumbar and Sacrum GE 4 Views [facility] Start: 02-25-2025 XR Thoracic spine Views [facility] Start: 02-25-2025 Xray thoracic spine Thoracic Spine 2 Views [facility] Start: 09-18-2024 End: 09-18-2024 Admission to same day surgery center 09/18/2024 8:00 AM EST - 09/18/2024 9:00 AM EST Surgery MR CARDIAC EXCHANGE ADMINISTRATOR [address] [place] [address] Maynor Fernandez MD [address] [facility] [address] [place] [address] [address]ON[address] C[address] W IMAGE INJECT & INTERP W LT HEART CATH W INJECT LT VENTRGRAPHY MR CARDIAC EXCHANGE ADMINISTRATOR Comment on above: CORONARY ANGIO W CAT [...] stress test 09/18/2024 8:00 AM EST MR EXCHANGE ADMINISTRATOR Start: 09-18-2024 Subsequent hospital visit by physician 09/18/2024 8:00 AM EST Hospital Encounter MR CARDIAC EXCHANGE ADMINISTRATOR [address] [place] [address] Maynor Fernandez MD [address] [place] [address] Chest discomfort [R07.89], Abnormal stress test [R94.39] MR CARDIAC EXCHANGE ADMINISTRATOR Comment on above: Chest discomfort [R0 7.89], Abnormal stress test [R94.39] Start: 09-08-2024 End: 12-08-2024 Basic metabolic 2000 panel - Serum or Plasma BASIC METABOLIC PANEL Lab Routine Coronary artery disease involving [place] coronary artery of [place] heart without angina pectoris Chest discomfort Abnormal stress test Expected: 09/08/2024 (Approximate), Expires: 12/08/2024 [facility] Work Phone: Comment on above: Expected: 09/08/2024 (Approximate), Expires: 12/08/2024 Start: 09-08-2024 End: 12-08-2024 PT panel - Platelet poor plasma by Coagulation assay PROTHROMBIN TIME Lab Routine Coronary artery disease involving [place] coronary artery of [place] heart without angina pectoris Chest discomfort Abnormal stress test Expected: 09/08/2024 (Approximate), Expires: 12/08/2024 [facility] Comment on above: Expected: 09/08/2024 (Approximate), Expires: 12/08/2024 Start: 09-01-2024 End: 12-01-2024 CBC W Auto Differential panel - Blood COMPLETE BLOOD COUNT AND DIFFERENTIAL Lab Routine Coronary artery disease involving [place] coronary artery of [place] heart without angina pectoris Chest discomfort Abnormal stress test Expected: 09/01/2024, Expires: 12/01/2024 [facility] Comment on above: Expected: 09/01/2024 , Expires: 12/01/2024 Start: 08-26-2024 Advance Directive Discussion Advance Directive Discussion [facility] Start: 08-20-2024 End: 08-20-2024 Patient encounter procedure Nuclear Medicine Comment on above: NM CARDIAC PERF STRE SS/PHARM Start: 07-25-2024 End: 07-25-2025 NM Heart Perfusion W stress and W radionuclide IV NM CARDIAC PERF STRESS/PHARM Radiology Routine Coronary artery calcification seen on CT scan Dyspnea, unspecified type Encounter for screening for cardiovascular disorders Expected: 07/25/2024, Expires: 07/25/2025 [facility] Comment on above: Expected: 07/25/2024 , Expires: 07/25/2025 Start: 06-25-2024 End: 06-25-2024 Patient encounter procedure 06/25/2024 8:30 AM EDT Office Visit [facility] [address] [place] [address] Mahamed Cardona MD [address] [place] [address] New patient referral [facility] Comment on above: New patient referral Start: 2024 RSV Vaccine (1 - 1-d ose 75+ series) RSV Vaccine (1 - 1-dose 75+ series) [facility] Start: 04-26-2024 Covid-19 Vaccine ( season) Covid-19 Vaccine () [facility] Start: 04-26-2024 Influenza vaccination Influenza Vacc ine (#1) [facility] Start: 03-18-2024 End: 03-18-2024 Patient encounter procedure 03/18/2024 10:00 AM EDT Office Visit Pain Management [address] [place] [address] Maynor Robles, PA-C [address] [place] [address] FOLLOW UP [facility] Comment on above: FOLLOW UP [facility] Start: 12-23-2023 End: 12-23-2023 ambulatory [facility] Comment on above: left knee left knee re- víctor l Start: 12-18-2023 End: 12-18-2023 ambulatory 12/18/2023 1:30 PM EDT OT/PT/Speech Visit [facility] [address] [place] [address] CicDwain fischer M, WAREHOUSE GUARD left knee [facility] Physical [facility] Comment on above: left knee Start: 12-18-2023 End: 12-18-2023 Patient encounter procedure 12/18/2023 10:00 AM EDT Office Visit Pain Management [address] [facility] [place] [address] Maynor Robles, PA-C [address] [place] [address] FOLLOW UP [facility] Comment on above: FOLLOW UP [facility] Start: 08-26-2023 Advance Directive Discussion Advance Directive Discussion [facility] Start: 08-26-2023 Behavioral Health Screening Behavioral Health Screening [facility] Start: 08-26-2023 Depression Assessment Depression Ass essment [facility] Start: 04-26-2023 Covid-19 Vaccine () Covid-19 Vaccine () [facility] Start: 04-26-2023 Influenza vaccination INFLUENZA (#1) [facility] Start: 01-07-2023 End: 03-09-2023 TOXASSURE FLEX 23, URINE TOXASSURE FLEX 23, URINE Lab Routine Lumbar postlaminectomy syndrome Acute arthropathy History of arthroplasty [Z98.890 (ICD-10-CM)] Lumbar radiculopathy DDD (degenerative disc disease), lumbar Intervertebral disc disorder with radiculopathy of lumbar region Myalgia [M79.10 (ICD-10-CM)] Expected: 01/07/2023, Expires: 03/09/2023 [facility] Work Phone: Comment on above: Expected: 01/07/2023 , Expires: 03/09/2023 Start: 12-05-2022 COVID-19 VACCINE (5 - Pfizer series) COVID-19 VACCINE (5 - Pfizer series) [facility] Start: 08-26-2022 ADVANCE DIRECTIVE DISCUSSION ADVANCE DIRECTIVE DISCUSSION [facility] Start: 08-26-2022 DEPRESSION ASSESSMENT DEPRESSION ASS ESSMENT [facility] Start: 08-21-2022 End: 10-21-2022 TOXASSURE FLEX 23, URINE TOXASSURE FLEX 23, URINE Lab Routine High risk medication use Expected: 08/21/2022, Expires: 10/21/2022 [facility] Work Phone: Comment on above: Expected: 08/21/2022 , Expires: 10/21/2022 Start: 04-26-2022 Influenza vaccination [facility] [place] Start: 03-07-2022 Colonoscopy COLONOSCOPY [facility] Start: 03-07-2022 COLORECTAL CANCER SCREENING COLORECTAL CANCER SCREENING [facility] Start: 09-26-2021 COVID-19 VACCINE (4 - Booster for Pfizer series) COVID-19 VACCINE (4 - Booster for Pfizer series) [facility] Start: 08-26-2021 ADVANCE DIRECTIVE DISCUSSION ADVANCE DIRECTIVE DISCUSSION [facility] Start: 08-26-2021 DEPRESSION ASSESSMENT DEPRESSION ASS ESSMENT [facility] Start: 07-21-2021 COVID-19 VACCINE (4 - Booster for Pfizer series) COVID-19 VACCINE (4 - Booster for Pfizer series) [facility] Start: 05-18-2017 Pneumococcal Vaccine : 50+ (2 of 2 - PPSV23) Pneumococcal Vaccine: 50+ (2 of 2 - PPSV23) [facility] Start: 05-18-2017 Pneumococcal Vaccine : 65+ (2 - PPSV23 or PCV20) Pneumococcal Vaccine: 65+ (2 - PPSV23 or PCV20) [facility] Start: 05-18-2017 Pneumococcal Vaccine : 65+ (2 of 2 - PPSV23 or PCV20) Pneumococcal Vaccine: 65+ (2 of 2 - PPSV23 or PCV20) [facility] Start: 05-18-2017 PNEUMOCOCCAL: 65+ (2 - PPSV23 if available, else PCV20) PNEUMOCOCCAL: 65+ (2 - PPSV23 if available, else PCV20) [facility] Start: 05-18-2017 PNEUMOCOCCAL: 65+ (2 - PPSV23 or PCV20) PNEUMOCOCCAL: 65+ (2 - PPSV23 or PCV20) [facility] Start: 2014 BONE DENSITY BONE DENSITY [facility] Start: 2014 Bone Density Screening Bone Density Screening [facility] Start: 2014 PNEUMOCOCCAL: 65+ (1 - PCV) PNEUMOCOCCAL: 65+ (1 - PCV) [facility] Start: 2014 Screening for osteoporosis Bone Density Screening [facility] Start: 2009 RSV Vaccine (1 - 1-d ose 60+ series) RSV Vaccine (1 - 1-dose 60+ series) [facility] Start: 2009 RSV Vaccine (1 - Ris k 60-74 years 1-dose series) RSV Vaccine (1 - Risk 60-74 years 1-dose series) [facility] Start: 1999 SHINGRIX VACCINE (1 of 2) SHINGRIX VACCINE (1 of 2) [facility] Start: 1994 COLOGUARD (FIT-DNA) COLOGUARD (FIT-D NA) [facility] Start: 1994 Colonoscopy COLONOSCOPY [facility] Start: 1994 COLORECTAL CANCER SCREENING COLORECTAL CANCER SCREENING [facility] Start: [address] COLONOGRAPHY [facility] Start: 1994 DIABETES SCREEN DIABETES SCREEN [facility] Start: 1994 FECAL OCCULT BLOOD FECAL OCCULT BLOO D [facility] Start: 1994 Lipid 1996 panel - Serum or Plasma Lipid Screening [facility] Start: 1994 Lipid panel Lipid Screening [facility] Start: 1994 LIPID SCREEN LIPID SCREEN [facility] Start: 1994 Screening for malign ant neoplasm of colon [facility] Start: 1994 SIGMOIDOSCOPY SIGMOIDOSCOPY [facility] Start: 1989 Mammography [facility] Start: 1989 Screening for malign ant neoplasm of breast Mammogram Screening [facility] Start: 1968 Urine microalbumin profile DTAP,TDAP,TD (1 - Tdap) [facility] Start: 1967 Annual PCP Team Director Biomedical Engineering sherrie Disease Visit Annual PCP Team Chronic Disease Visit [facility] Start: 1967 Anxiety Screening Anxiety Screening [facility] Start: 1967 BP Controlled (<130/80) BP Controlle d (<130/80) [facility] Start: 1967 Depression Screening Depression Scre ening [facility] Start: 1967 Hepatitis B surface antibody level LDL Cholesterol [facility] Start: 1967 HEPATITIS C SCREENING HEPATITIS C [facility] Start: 1967 Hepatitis C screening Hepatitis C [facility] Start: 1961 Adult depression screening assessment DEPRESSION SCREENING [facility] Start: 1954 COVID-19 VACCINE (#1) COVID-19 VACCI NE (#1) [facility] Cath plmt l hrt & ar ts w/njx & angio img s&i CORONARY ANGIO W CATH PLACE W IMAGE INJECT & INTERP W LT HEART CATH W INJECT LT VENTRGRAPHY Chest discomfort Abnormal stress test MR EXCHANGE ADMINISTRATOR ECG B/O W INTERP (ME D OFFICE) ECG B/O W INTERP (MED OFFICE) ECG Routine Coronary artery calcification seen on CT scan Dyspnea, unspecified type Primary hypertension Ordered: 06/25/2024 [facility] Work Phone: Comment on above: Ordered: 06/25/2024 Lumbar spine Yesica Pacheco [facility] End: 08-10-2023 PAP TITRATION PSG (CPAP, BIPAP, ASV) PAP TITRATION PSG (CPAP, BIPAP, ASV) Procedures Routine Obstructive sleep apnea 1 Occurrences starting 07/11/2022 until 08/10/2023 [facility] Work Phone: Comment on above: 1 Occurrences starti ng 07/11/2022 until 08/10/2023 [facility] MR [facility]SIEH [facility] Immunizations Immunization Date Immunization Notes Care Provider Susanne boyce 05-27-2023 influenza virus vacc ine, unspecified formulation Mahamed Cardona MD Work Phone: [facility] 05-30-2021 influenza (aIIV4) vaccine, age 65+ yr, quadrivalent, PF (FLUAD QUADRIVALENT) Fatoumata Lyn DO Work Phone: [facility] 07-12-2020 zoster vaccine recombinant Fatoumata Lyn DO Work Phone: [facility] 05-09-2020 zoster vaccine recombinant Fatoumata Lyn DO Work Phone: [facility] 2019 influenza, high dose seasonal, preservative-free Fatoumata Lyn DO Work Phone: [facility] 06-17-2018 influenza, injectabl e, quadrivalent, contains preservative Fatoumata Lyn DO Work Phone: [facility] 06-25-2017 influenza, high dose seasonal, preservative-free Fatoumata Lyn DO Work Phone: [facility] 05-18-2016 influenza, high dose seasonal, preservative-free Fatoumata Lyn DO Work Phone: [facility] 05-18-2016 pneumococcal conjuga te vaccine, 13 valent Fatoumata Lyn DO Work Phone: [facility] 07-26-2015 influenza, high dose seasonal, preservative-free Fatoumata Lyn DO Work Phone: [facility] 08-08-2009 novel influenza-H1N1 -09, preservative-free, injectable Fatoumata Lyn DO Work Phone: [facility] Payers Date Payer Category Payer Self-pay 2015 Private Health Insurance [employer]NA HUMANA MEDICARE SUPPLEMENT [id number] 2015-Present [phone] [address] [address] [place] [address] Indemnity [id number] 2015 Private Health Insurance HUMANA HUMANA MEDICARE SUPPLEMENT [id number] 2015-Present [phone] [address] [address] [place] [address] Indemnity [id number] 2015 Private Health Insurance [id number] 2014 Medicare MEDICARE MEDICAR E A AND B [id number] 2014-Present [phone] [address] [address] [place] [address] Medicare [id number] 2014 Medicare MEDICARE MEDICAR E A AND B [id number] 2014-Present [phone] [address] [address] [place] [address] Medicare [id number] 2014 Medicare [id number] 1950 Unknown [id number] 2.16.840.1.469131.3.579 .2.651 1950 Unknown [id number] 2.16.840.1.100339.3.579 .2.651 1950 Unknown [id number] 2.16.840.1.303835.3.579 .2.627 1950 Unknown [id number] 2.16.840.1.964089.3.579 .2.627 1950 Unknown [id number] 2.16.840.1.883979.3.579 .2.627 1950 Unknown [id number] 2.16.840.1.783375.3.579 .2.627 1950 Unknown [id number] 2.16.840.1.639628.3.579 .2.627 1950 Unknown [id number] 2.16.840.1.901375.3.579 .2.627 1950 Unknown [id number] 2.16.840.1.350634.3.579 .2.627 1950 Unknown [id number] 2.16.840.1.399815.3.579 .2.627 Medicare [id number] Unknown [id number] 2.16.840.1.507883.3.579 .2.462 Unknown [id number] 2.16.840.1.016067.3.579 .2.462 Unknown [id number] 2.16.840.1.691843.3.579 .2.462 Unknown [id number] 2.16.840.1.891865.3.579 .2.462 Unknown [id number] 2.16.840.1.567982.3.579 .2.462 Unknown [id number] 2.16.840.1.218121.3.579 .2.462 Unknown [id number] 2.16.840.1.406302.3.579 .2.462 Unknown [id number] 2.16.840.1.880223.3.579 .2.462 Unknown [id number] 2.16.840.1.992847.3.579 .2.462 Unknown [id number] 2.16.840.1.422054.3.579 .2.462 Unknown [id number] 2.16.840.1.117249.3.579 .2.462 Unknown [id number] 2.16.840.1.489496.3.579 .2.462 Social History Date Type Detail Facility Tobacco smoking stat [facility] Tobacco smoking consumption unknown [facility] Start: 1950 Sex Assigned At Not on file [facility] [place] Start: 09-12-2021 End: 05-12-2025 Never smoked tobacco (finding) [facility] Sex Assigned At [facility] Start: 02-15-2022 End: 09-20-2022 Tobacco use and exposure Smokeless tobacco non-user [facility] Start: 02-15-2022 End: 06-25-2024 Alcohol intake Ex-drinker (finding) [facility] Start: 02-05-2022 End: 06-29-2022 Exposure to SARS-CoV-2 (event) Not sure [facility] Start: 1950 Sex Assigned At Female [facility] [place] Start: 01-07-2023 End: 02-13-2023 History of Social function [facility] Start: 01-07-2023 End: 02-13-2023 Tobacco use panel [facility] National Score (1-100), lower number is lower risk 86 [facility] Start: 03-09-2022 Gender identity Identifies as female gender (finding) [facility] Start: 03-09-2022 Sexual orientation Heterosexual (adilson desiree) [facility] NEGATED: Highlighted rowStart: NINF History of tobacco use Passive smoker [facility] Medical Equipment Procedure Code Equipment Code Equipment Origin al Text Equipment Identifier Dates Catheter Ascenda 4fr .5mm Silicone 114cm 86cm Intrathecal 2 Piece Connector - [id number] Start: 09-28-2022 Pump Synchromed Ii Thk.78in C20ml Titanium .78in Intrathecal [place] - [id number] Start: 09-28-2022 Ptm [id number] Start: 09-28-2022 Goals Date Patient Goal Desired Activity /State Personal health goal Clinical Notes 12-12-2021 to 05-26-2025 Note Date & Type Note Facility 05-26-2025 Note [facility] [address] [place] [address] History Physical Exam 05/26/25927 MR#: [id number] Acct: [id number] Name: EMPERATRIZ GHSOH Rep #: [id number] : 1950 74 From: Jose Juan Springer MD PCP: Dr. Luda Ann, Status:[facility] Location: [place] [address] History and Physical MR#: [id number] Acct: [id number] Name: EMPERATRIZ GHOSH Rep #: [id number] : 1950 Provider: Dr. Jose Juan Springer MD Age/Sex: 74/F Location: [facility] [place] Status: Signed Intake Vital Signs 02/25/2514:46 05/13/2511:00 Height 5 ft 5 ft Weight: 226 lb 226 lb BMI 44.1 44.1 Intake Visit Reasons: spine Chief Complaint: lumbar spine pre op Accompanied by: Self Is patient in pain?: Yes Pain scale (1-10): 5 Allergies No Known Allergies Allergy (Verified 05/13/25 11:03) Medications ???Medication ???Instructions ???Recorded ???Confirmed ???Type PAIN PUMP (INFORMATIONAL USE 02/25/25 05/13/25 History ONLY-PATIENT HAS MORPHINE PUMP) ascorbic acid (vitamin C) 500 mg 500 mg PO DAILY 02/25/25 05/13/25 History capsule aspirin 81 mg tablet 81 mg PO QDAY 02/25/25 05/13/25 History brimonidine 0.2 % eye drops 1 drp ophthalmic (eye) BID 02/25/25 05/13/25 Histo ry duloxetine 60 mg capsule,delayed 60 mg PO QHS 02/25/25 05/13/25 History release famotidine 20 mg tablet 40 mg PO QHS 02/25/25 05/13/25 History ferrous sulfate 325 mg (65 mg 325 mg PO QDAY 02/25/25 05/13/25 History iron) tablet (FeroSul) gabapentin 800 mg tablet 800 mg PO TID 02/25/25 05/13/25 History latanoprost 0.005 % eye drops 1 drp ophthalmic (eye) QPM 02/25/25 05/13/25 Histo ry lidocaine-prilocaine 2.5 %-2.5 % 1 applic topical TID PRN pain 02/25/25 05/13/25 Hi story topical cream lisinopril 20 1 tab PO QDAY 02/25/25 05/13/25 History mg-hydrochlorothiazide 25 mg tablet omeprazole 40 mg capsule,delayed 40 mg PO QDAY 02/25/25 05/13/25 History release simvastatin 20 mg tablet 20 mg PO QHS 02/25/25 05/13/25 History tolterodine 4 mg capsule,extended 4 mg PO QDAY 02/25/25 05/13/25 History release 24 hr calcium carbonate 1,200 mg PO DAILY 05/12/25 05/13/25 History cholecalciferol (vitamin D3) 50 50 mcg PO DAILY 05/12/25 05/13/25 History mcg (2,000 unit) capsule (Vitamin D3) folic acid 800 mcg tablet 0.8 mg PO DAILY 05/12/25 05/13/25 History lactobacillus combination no.4 3 3,000 mmu cells PO DAILY 05/12/25 05/13/25 History billion cell capsule (Probiotic) multivitamin (Daily Multi-Vitamin 1 tab PO DAILY 05/12/25 05/13/25 History tablet) zinc gluconate 50 mg tablet 50 mg PO DAILY 05/12/25 05/13/25 History Have you fallen in the past year?: No PFSH Medical History Glaucoma Loss of hearing Wears glasses Post-menopausal Ambulates with cane Arthritis Easy bruising Back pain History of hiatal hernia History of diverticulitis Shortness of breath on exertion Non-smoker History of pain when walking Cardiology follow-up encounter History of stress test History of irregular heartbeat Chest pain Morbid obesity Bladder prolapse GERD (gastroesophageal reflux disease) Hyperlipemia Hypertension Surgical History History of cardiac catheterization Hx of bladder repair surgery History of esophagogastroduodenoscopy (EGD) Hx of colonoscopy Hx of total hip arthroplasty Hx of tonsillectomy H/O: hysterectomy History of hip replacement H/O spinal fusion H/O carpal tunnel repair History of knee replacement Social History Smoking Status: Never smoker HPI spine Details: This documentation accurately reflects the service provided and the decisions made by me, Dr. Jose Juan Springer MD 05/13/25 1056. Part of today???s visit was documented by Kylee Grijalva MA, acting as scribe. EMPERATRIZ GHOSH is a 74 year old F here today for lumbar spine pre op. Patient states that her pain is a 5 today. She states that she hasn't had any injections in her lower back. Patient states that she did try physical therapy in the past. She states that the physical therapy didn't help. Patient states that she would like to know what she can and can't do after surgery. She would like to know how long she would be at the hospital for. The patient is a 74-year-old female presenting with chronic back pain management. She has a history of multiple spinal surgeries, which have resulted in significant scarring and chronic pain. The current plan involves a spinal co (more content not included)... [facility] 05-13-2025 Progress note [facility] 02-25-2025 Evaluation note Diagnosis Onset Date Resolution History of lumbar fusion acute February 25, 2025 2:43pm Kyphosis acute February 25, 2025 2:43pm Lumbar adjacent segment disease with spondylolisthesis acute February 25, 2025 2:43pm Osteopenia determined by x-ray acute February 25, 2025 2:43pm Scoliosis acute February 25, 2025 2:43pm Chronic back pain chronic February d2024 2:43pm [facility] Work Phone: 1(544) 174-938607-03-2025 Evaluation note* Diagnosis Onset Date Resolution Status Admit Date History of lumbar fusion acute February 25, 2025 2:43pm Kyphosis acute February 25, 2025 2:43pm Lumbar adjacent segment dise ase with spondylolisthesis acute February 25, 2025 2:43pm Osteopenia determined by x-ray acute February 25, 2025 2:43pm Scoliosis acute February 25, 2025 2:43pm Chronic back pain chronic February d2024 2:43pm History of lumbar fusion acute April 22, 2025 8:57am Kyphosis acute April 22, 2 025 8:57am Lumbar adjacent segment dise ase with spondylolisthesis acute April 222024 8:57am Morbid obesity acute March 8:57am Osteopenia determined by x-ray acute April 22, 2025 8:57am Scoliosis acute April 22, 2 025 8:57am [facility] Work Phone: 1(942) 965-666407-03-2025 Evaluation note* Diagnosis Onset Date Resolution Status Admit Date History of lumbar fusion acute February 25, 2025 2:43pm Kyphosis acute February 25, 2025 2:43pm Lumbar adjacent segment dise ase with spondylolisthesis acute February 25, 2025 2:43pm Osteopenia determined by x-ray acute February 25, 2025 2:43pm Scoliosis acute February 25, 2025 2:43pm Chronic back pain chronic February d2024 2:43pm History of lumbar fusion acute April 22, 2025 8:57am Kyphosis acute April 22, 2 025 8:57am Lumbar adjacent segment dise ase with spondylolisthesis acute April 222024 8:57am Morbid obesity acute March 8:57am Osteopenia determined by x-ray acute April 22, 2025 8:57am Scoliosis acute April 22, 2 025 8:57am History of lumbar fusion acute May 13, 2025 10:56am Kyphosis acute April 10:56am Lumbar adjacent segment dise ase with spondylolisthesis acute May 13, 2025 10:56am Morbid obesity acute May 13, 2025 10:56am Osteopenia determined by x-ray acute May 13, 2025 10:56am Scoliosis acute April 10:56am [facility] Work Phone: 1(453) 937-395201-07-2025 NoteHNO ID: [id number] Author: MAHAMED CARDONA MD Service: ? Author Type: Physician Type: Progress Notes Filed: 09/01/2024 15:11 Note Text: Summary: Abnormal stress Cardiolite with LAD ischemia, pt has atypical CP. For [facility] 09-01-2024 History of Present illness Narrative* Mahamed Cardona MD - 09/01/2024 3:03 PM ESTSummary: Abnormal stress Cardiolite with LAD ischemia, pt has atypical CP. For cath documented in [facility] encounterCommunity [facility] Telephone encounter Note * Telephone Encounter - Janet Wiley LPN - 08/31/2024 1:24 PM EST ----- Message from Mahamed Cardona MD sent at 08/20/2024 1:34 PM EST ----- Cardiolite mildly abnormal in Anterior distribution - ischemic. Sxs do not sound GI, but lots of risk factors. I suggest a cath, and will order if she agrees. [facility]01-06[facility] Miscellaneous Notes* Telephone Encounter - Janet Wiley LPN - 08/31/2024 1:24 PM EST ----- Message from Mahamed Cardona MD sent at 08/20/2024 1:34 PM EST ----- Cardiolite mildly abnormal in Anterior distribution - ischemic. Sxs do not sound GI, but lots of risk factors. I suggest a cath, and will order if she agrees. documented in this encounterCommunity [facility] Medical Center12-26-2024 NoteHNO ID: [id number] Author: ERIKA MAKI RT(R) Service: ? Author [...] PATIENT PRESENTS WITH AN IMPLANTABLE OR ATTACHED NUTRITION TECHNICIAN: No CREATININE: Creatinine Date Value Ref Range [...] Discontinued PROCEDURE TYPE: NM Stress: 16.1 mCi Cf80z-Udffkpl was administered IV for [facility] at 0920 by [facility] [place]. 48.2 mCi Kg39w-Vcclikz was administered IV for Stress Imaging at 1020 by [facility] [place]. ADMINISTRATION TIME: 1020 PATIENT DISCHARGED TO: Ambulatory patient, left MA department area. Is this a therapy: No A Diagnostic radioactive procedure has taken place, with no further precautions necessary other than routine body substance precautions. More information regarding radiation safety can be found using this link: [email or web address]%20Nuclear%20Medicine%20Procedures.[email or web address] SIGNATURE: RT Harlan(Katarzyna) PATIENT NAME: Emperatriz Ghosh DATE: August 20, 2024 TIME: 10:56 AM PAGER/CONTACT #:[facility]12-26-2024 History of Present illness Narrative* Erika Maki RT(R) - 08/20/2024 10:56 AM EST RADIOLOGY SERVICE PROGRESS NOTE SERVICE DATE: 08/20/2024 [...] PATIENT PRESENTS WITH AN IMPLANTABLE OR ATTACHED NUTRITION TECHNICIAN: No CREATININE: Creatinine Date Value Ref Range [...] creatinine assay has traceable calibration to isotope dilution- mass spectrometry. Refer to KDIGO guidelines for clinical interpretation. In patients with unstable renal function, e.g. those with acute kidney injury, the eGFRmay not accurately reflect actual GFR. eGFR- Date Value Ref Range Status 05/19/2020 Greater than 60 Final P.O.C.T. RESULTS: N/A August 20, [address] PERFORMED: No IV SITE: Ambulatory: A peripheral IV was started in the Right hand with a Angio cath/Butterfly: 22 gauge. POST EXAM PIV STATUS: Discontinued PROCEDURE TYPE: MA Stress: 16.1 mCi Bf28s-Osvrhzg was administered IV for Rest Imaging at 0920 by [facility] [place]. 48.2 mCi Xb76z-Sywvaqs was administered IV for Stress Imaging at 1020 by [facility] [place]. ADMINISTRATION TIME: 1020 PATIENT DISCHARGED TO: Ambulatory patient, left MA department area. Is this a therapy: No A Diagnostic radioactive procedure has taken place, with no further precautions necessary other than routine body substance precautions. More information regarding radiation safety can be found usingthis link: [email or web address]%20Nuclear%20Medicine%20Procedures.[email or web address] SIGNATURE: RT Harlan(R) PATIENT NAME: Emperatriz Ghosh DATE: August 20, 2024 TIME: 10:56 AM PAGER/CONTACT #: documented in this encounterCommunity [facility] Center12-20-2024 Telephone encounter Note * Telephone Encounter - Radha Ramírez RN - 08/14/2024 11:12 AM EST Spoke with patient on phone and gave stress test instructions including holding all products with caffeine/decaff 6pm night before with date time and location. Radha Mendoza [facility]12-20-2024 Miscellaneous Notes* Telephone Encounter - Radha Ramírez RN - 08/14/2024 11:12 AM EST Spoke with patient on phone and gave stress test instructions including holding all products with caffeine/decaff 6pm night before with date time and location. Radha Mendoza documented in this encounterCommunity [facility] Medical Center10-31-2024 Instructions* Patient Instructions* Mahamed Cardona MD - 06/25/2024 8:51 AM EDT Same meds Discuss risk factor modification with Dr. Ann - weight management, exercise, BP, possible furtherpulmonary evaluation (Low O2 levels). May also need GI Dr. Nallely alvarado for GERD, possible esophageal stricture/spasm. Lexiscan Cardiolite documented in this encounterCommunity [facility] Medical Center10-31-2024 NoteHNO ID: [id number] Author: MAHAMED CARDONA MD Service: ? Author Type: Physician Type: Progress Notes Filed: 06/25/2024 09:18 Note Text: [facility] [place] OUTPATIENT VISIT DATE June 25, 2024 OUTPATIENT VISIT TYPE New Cardiology Consult PRIMARY CARE PHYSICIAN: Luda Ann [phone] [place] [phone] HISTORY OF PRESENT ILLNESS: Emperatriz Ghosh is [...] rales. Chest: Chest w (more content not included)...[facility]10-[facility] History of Present illness Narrative* Mahamed Cardona MD - 06/25/2024 8:37 AM EDT Images from the original note were not included. [facility] OUTPATIENT VISIT DATE June 25, 2024 OUTPATIENT VISIT TYPE New Cardiology Consult PRIMARY CARE PHYSICIAN: Luda Ann [address] [place] [address] HISTORY OF PRESENT ILLNESS: Emperatriz Ghosh is a 74 year old female here for New Patient. CARDIAC HISTORY: 74 F, Rina, referred by Korin Ann DO for coronary calcification on CT (, 02/16). Has LAE, Normal Echo without HOCM (2022), normal Cardiolite [...] 1- 2 grams to affectedarea TID PRN REVIEW OF SYSTEMS: Review of [...] her condition changes. Risk factor mod per . Mahamed Cardona MD documented in this encounterCommunity [facility] Center07-24-2024 Telephone encounter Note * Telephone Encounter - Emily Dobbins - 03/18/2024 8:20 AM EDT Scheduled and confirmed with patient Emily Dobbins [facility]24 Miscellaneous Notes* Telephone Encounter - Emily oDbbins - 03/18/2024 8:20 AM EDT Scheduled and confirmed with patient Emily Dobbins * Telephone Encounter - Hannah Robles - 03/18/2024 8:11 AM EDT New Patient Referral Requesting- Dr. Dulce Ghosh : 1950 Reason- CAD Records Scanned In * Telephone Encounter - Hannah Robles - 03/12/2024 3:08 PM EDTSummary: referral Received a referral from [facility] the office of Dr. Ann. Patient is referred forCAD. documented in this encounterCommunity [facility] Center07-24-2024 Telephone encounter Note * Telephone Encounter - Hannah Robles - 03/18/2024 8:11 AM EDT New Patient Referral Requesting- Dr. Dulce Ghosh : 1950 Reason- CAD Records Scanned In [facility] Telephone encounter Note* Telephone Encounter - Hannah Robles - 03/12/2024 3:08 PM EDTSummary: referral Received a referral from [facility] the office of Dr. Ann. Patient is referred forCAD. [facility]06-26-[facility] Telephone encounter Note* Telephone Encounter - Jaci Nixon APRN.CNP - 02/19/2024 10:08 AM EDT Noted and thank you. [facility] Miscellaneous Notes* Telephone Encounter - Jaci Nixon APRN.CNP - 02/19/2024 10:08 AM EDT Noted and thank you. * Telephone Encounter - Jaci Nixon APRN.CNP - 02/19/2024 7:08 AM EDT Please call the pt and get her an appt with Maynor in [place]. Thank you documented in this encounterCommunity [facility] Medical Center06-26-2024 Telephone encounter Note * Telephone Encounter - Kaylene Driver MA - 02/19/2024 10:02 AM EDT I called patient to get her an appointment scheduled with Maynor Robles at [place], patient stated she is no longer with us that she is seeing Dr Lopez in [place]. Kaylene Driver MA February 19, 2024 10:02 AM [facility] Miscellaneous Notes* Telephone Encounter - Kaylene Driver MA - 02/19/2024 10:02 AM EDT I called patient to get her an appointment scheduled with Maynor Robles at [place], patient stated she is no longer with us that she is seeing Dr Lopez in [place]. Kaylene Driver MA February 19, 2024 10:02 AM documented in this encounterCommunity [facility] Medical Center06-26-2024 Telephone encounter Note * Telephone Encounter - Jaci Nixon APRN.CNP - 02/19/2024 7:08 AM EDT Please call the pt and get her an appt with Maynor in [place]. Thank you [facility] History of Present illness Narrative* Phani Heard RT(R) - 02/13/2024 10:00 AM EDT Radiology Service Progress Note PATIENT NAME: Emperatriz Ghosh DATE OF SERVICE: February 13, 2024 TIME: 12:53 PM PATIENT IDENTITY VERIFICATION COMPLETED USING TWO (2) IDENTIFIERS: Name and Date of confirmedby patient verbally. FALL SCREENING: Has the patient had 2 falls in the last year or 1 fall with injury or currently using an Ambulatory Assistive Device (Walker, Cane, Wheelchair, Crutches, etc.)? Yes, Patient High Riskfor Falls What interventions were put in place to prevent falls during this visit? Offered Assistance with Transfers/Clothing PATIENT GENDER DATA: Female. status: : No status: NO. PATIENT RELEVANT IMPLANT DATA REVIEWED: Yes PATIENT PRESENTS WITH AN IMPLANTABLE OR ATTACHED NUTRITION TECHNICIAN: No RADIOLOGY DEPARTMENT: General X-ray: Exam(s) Completed: Spine X-Ray(s): Lumbar AP / LAT / L5-S1 / OBL / FLEX-EXT PERIPHERAL IV DATA: Not applicable SIGNED BY: RT Bianca(R) February 13, 2024 12:53 PM documented in this encounterCommunity Regional Medical Center06-20-2024 NoteHNO ID: [id number] Author: PHANI HEARD RT(R) Service: ? Author Type: Technologist Type: [...] PATIENT PRESENTS WITH AN IMPLANTABLE OR ATTACHED NUTRITION TECHNICIAN: No RADIOLOGY DEPARTMENT: General X-ray: Exam(s) Completed: Spine X-Ray(s): Lumbar AP / LAT / L5-S1 / OBL / FLEX-EXT PERIPHERAL IV DATA: Not applicable SIGNED BY: RT Bianca(R) February 13, 2024 12:53 PMLegacy [facility]05-29-2024 Telephone encounter Note* Telephone Encounter - Maura Jarvis RN - 01/22/2024 12:04 PM EDT Script faxed to [employer] with confirmation. Maura Jarvis RN January 22, 2024 12:04 PM [facility]-29-[facility]24 Miscellaneous Notes* Telephone Encounter - Maura Jarvis RN - 01/22/2024 12:04 PM EDT Script faxed to [employer] with confirmation. Maura Jarvis RN January 22, 2024 12:04 PM * Telephone Encounter - Maynor Robles PA-C - 01/22/2024 11:36 AM EDT The following approved medication requests have been transmitted electronically. Requested Prescriptions Pending Prescriptions Disp Refills morphine (PF) 5 mg/mL in NaCl 0.9% 20 mL 20 mL 0 Sig: PF MORPHINE 5 MG/ML SIMPLE CONTINUOUS RATE 0.8636 mg/ day PTM 0.0799 mg every 4 hours (max 6 doses per day) Total daily dose 1.3397mg Maynor Robles PA-C * Telephone Encounter - Yue Ramirez RN - 01/22/2024 9:53 AM EDT [facility] requesting refills as follows: Requested Prescriptions [...] Panel: No results found for: UQCANN, UQBNZL, HCA7XBC, UQAMPH, UQMAMP, UQBUPRE, UQNORBUP, UQMTHD, UQEDDP, UQTRAM, UQDTRM, UQFNTL, UQNFTL, UQCODE, UQMORP, UQDCDN, UQHCOD, UQOXYC, UQHMOR, UQOXYM, UQCREA, UQPH, UQSPGR, UQOXID, UQSPQ @FLOW([id number])@ Lab Results Component Value Date SUMM FINAL 07/31/2023 No results found for: SUMMAR Last Opioid agreement effective date: 07/31/2023 Please review and advise. Yue Ramirez RN documented in this encounterCommunity [facility] Medical Center05-29-2024 Telephone encounter Note * Telephone Encounter - aMynor Robles PA-C - 01/22/2024 11:36 AM EDT The following approved medication requests have been transmitted electronically. Requested Prescriptions Pending Prescriptions Disp Refills morphine (PF) 5 mg/mL in NaCl 0.9% 20 mL 20 mL 0 Sig: PF MORPHINE 5 MG/ML SIMPLE CONTINUOUS RATE 0.8636 mg/ day PTM 0.0799 mg every 4 hours (max 6 doses per day) Total daily dose 1.3397mg Maynor Robles PA-C [facility] Telephone encounter Note* Telephone Encounter - Yue Ramirez RN - 01/22/2024 9:53 AM EDT [facility] requesting refills as follows: Requested Prescriptions [...] Panel: No results found for: UQCANN, UQBNZL, DDB2TEO, UQAMPH, UQMAMP, UQBUPRE, UQNORBUP, UQMTHD, UQEDDP, UQTRAM, UQDTRM, UQFNTL, UQNFTL, UQCODE, UQMORP, UQDCDN, UQHCOD, UQOXYC, UQHMOR, UQOXYM, UQCREA, UQPH, UQSPGR, UQOXID, UQSPQ @FLOW([id number])@ Lab Results Component Value Date SUMM FINAL 07/31/2023 No results found for: SUMMAR Last Opioid agreement effective date: 07/31/2023 Please review and advise. Yue Ramirez RN [facility] Telephone encounter Note* Telephone Encounter - Muara Jarvis RN - 12/31/2023 1:43 PM EDT LM for pt to return call to update us on new pain pump provider. Referral to Dr Chase was faxed 12/15. Maura Jarvis RN December 31, 2023 1:44 PM [facility]-07-[facility]24 Miscellaneous Notes* Telephone Encounter - Maura Jarvis RN - 12/31/2023 1:43 PM EDT LM for pt to return call to update us on new pain pump provider. Referral to Dr Chase was faxed 12/15. Maura Jarvis RN December 31, 2023 1:44 PM documented in this encounterCommunity Regional Medical Center04-29-2024 NoteHNO ID: [id number] Author: LAURA SHAFFER, KASSIDY, DPT Service: ? Author Type: Physical Therapist [...] CARE PLAN OF CARE UPDATE: Assessment: Emperatriz Colón Sekoumagui is discontinued from Physical Therapy services due to goal achievement.. Patient was seen for 29 visits from Start of Care Date: 10/02/23 to 12/23/2023 and treatment included: Therapeutic exercise, Manual therapy, and Therapeutic activities. The patient met 6/6 buttermaker continuous churn goals except manual muscle testing for left hip abduction. Addressed 12/23/2023 Goals for Episode of Care: created on 10/02/23 through 12/25/23 [place] in home exercise program. - Met Patient [...] Stop Time : 1036 Laura Shaffer PT, [facility]04-29-2024 History of Present illness Narrative* Laura Shaffer PT, DPT - 12/23/2023 9:34 AM EDT Episode Visit Count: 29 Therapist That Will [...] of Care Date: 10/02/23 to 12/23/2023 and treatmentincluded: Therapeutic exercise, Manual therapy, and Therapeutic activities. The patient met 6/6 detention goals except manual muscle testing for left hip abduction. Addressed 12/23/2023 Goals for Episode of Care: created on 10/02/23 through 12/25/23 [place] in home exercise program. - Met Patient [...] Session Stop Time : 1036 Laura Shaffer PT DPT documented in this encounterCommunity [facility] Medical Center04-24-2024 NoteHNO ID: [id number] Author: DWAIN KOLB PTA Service: ? Author Type: Infantry Operations Specialist Type: Progress Notes Filed: 12/18/2023 14:46 Note [...] included in billed treatment time. Dwain Kolb, [facility]04-24-2024 History of Present illness Narrative* Dwain Kolb, [facility] - 12/18/2023 1:28 PM EDT Episode Visit Count: 28 Therapist That Will [...] x 8 laps with 10 marches on 13: Recumbant stepper Level 3 x 10 [...] time. Dwain Kolb PTA documented in this encounterCommunity Regional Medical Center04-24-2024 Instructions* Patient Instructions* Maynor Robles PA-C - 12/18/2023 10:24 AM [...] seen at this time. documented in this encounterCommunity Regional Medical Center04-24-2024 NoteHNO ID: [id number] Author: MAYNOR ROBLES PA-C Service: ? Author Type: Physician Building Tech Type: Progress Notes Filed: 12/18/2023 10:40 Note Text: This note was created using Navarik. Subjective Emperatriz Ghosh is a 73 year [...] pump present - ICD9: V45.89, ICD10: Z96.89 ZACKARY [facility]04-24-2024 History of Present illness Narrative* Maynor Robles PA-C - 12/18/2023 10:06 AM EDT This note was created using Dctioriter. Subjective Emperatriz Ghosh is a 73 year [...] Sensation is intact to light touch throughout. SLRis negative. Neurological: Mental Status: She is alert [...] Z96.89 Maynor Robles PA-C documented in this encounterCommunity Regional Medical Center04-22-2024 Telephone encounter Note * Telephone Encounter - Maynor Robles PA-C - 12/16/2023 12:23 PM EDT Order is signed. [facility]04-22-2024 Miscellaneous Notes* Telephone Encounter - Maynor Robles PA-C - 12/16/2023 12:23 PM EDT Order is signed. * Telephone Encounter - Maura Jarvis RN - 12/16/2023 10:38 AM EDTSummary: IT pump referral I reached out to Dr Chase's office and was told that he is accepting new patients at this time. Icalled patient and she is willing to go see Dr Chase. Please send referral and we will follow up with patient. Maura Medrano documented in this encounterCommunity Regional Medical Center04-22-2024 Telephone encounter Note * Telephone Encounter - Maura Jarvis RN - 12/16/2023 10:38 AM EDTSumeleniy: IT pump referral I reached out to Dr Chase's office and was told that he is accepting new patients at this time. Icalled patient and she is willing to go see Dr Chase. Please send referral and we will follow up with patient. aMura Medrano [facility]04-17-2024 NoteHNO ID: [id number] Author: DWAIN KOLB PTA Service: ? Author Type: Infantry Operations Specialist Type: Progress Notes Filed: 12/11/2023 12:07 Note [...] included in billed treatment time. Dwain Kolb, [facility]04-17-2024 History of Present illness Narrative* Dwain Kolb, WAREHOUSE GUARD - 12/11/2023 10:52 AM EDT Episode Visit Count: 27 Therapist That Will [...] on the multihip, although it is still challengingfor the pt. She also tolerated increased reps [...] time. Dwain Kolb PTA documented in this encounterCommunity [facility] Center04-15-2024 Miscellaneous Notes* Telephone Encounter - Maura Jarvis RN - 12/09/2023 2:45 PM EDT List of possible pain pump providers mailed to the patient. Maura Jarvis RN December 09, 2023 2:46 PM * Telephone Encounter - Maura Jarvis RN - 12/09/2023 2:10 PM EDTSummary: Pain pump patient Left message for pt to return call regarding finding a new pain pump provider. Maura Jarvis RN December 09, 2023 2:11 PM documented in this encounterCommunity Regional Medical Center04-15-2024 NoteHNO ID: [id number] Author: DWAIN KOLB PTA Service: ? Author Type: Infantry Operations Specialist Type: Progress Notes Filed: 12/09/2023 11:59 Note [...] included in billed treatment time. Dwain Kolb [facility]04-15-2024 History of Present illness Narrative* Dwain Kolb, [facility] - 12/09/2023 10:43 AM EDT Episode Visit Count: 26 Therapist That Will [...] and that she feels stronger. She also toleratedincreased resistance on the shuttle.The patient will continue [...] time. Dwain Kolb PTA documented in this encounterCommunity Regional Medical Center04-10-2024 NoteHNO ID: [id number] Author: DWAIN KOLB PTA Service: ? Author Type: Infantry Operations Specialist Type: Progress Notes Filed: 12/04/2023 12:03 Note [...] included in billed treatment time. Dwain Kolb [facility]04-10-2024 History of Present illness Narrative* Dwain Kolb [facility] - 12/04/2023 10:47 AM EDT Episode Visit Count: 25 Therapist That Will [...] time. Dwain Kolb PTA documented in this encounterCommunity [facility] Medical Center04-08-2024 NoteHNO ID: [id number] Author: DWAIN KOLB PTA Service: ? Author Type: Infantry Operations Specialist Type: Progress Notes Filed: 12/02/2023 12:26 Note [...] included in billed treatment time. Dwain Kolb [facility]04-08-2024 History of Present illness Narrative* Dwain Kolb, [facility] - 12/02/2023 10:48 AM EDT Episode Visit Count: 24 Therapist That Will Accept/Oversee The Plan Of Care: Laura Shaffer PT, DPT Start of Care Date: 10/02/23 Onset Date: 09/30/23 Plan of Care Certification Date: 10/02/23 Next Certification Due Date: 12/25/23 Patient Identified by Name and Date of : Yes REHABILITATION AND SPORTS THERAPY PHYSICAL THERAPY TREATMENT NOTE ASSESSMENT: Emperatriz Colón fiorkathiemagui tolerated the session with no increased pain. [...] time. Dwain Kolb PTA documented in this encounterCommunity Regional Medical Center04-03-2024 NoteHNO ID: [id number] Author: LAURA SHAFFER, PT, DPT Service: ? Author Type: Physical [...] of Care: created on 10/02/23 through 12/25/23 [place] in home exercise program. - Met Patient [...] Patient to be seen for Therapeutic exercise (09381), Neuromuscular re-education (48764), Manual therapy (58696), Therapeutic activities (35078), Self-half-way management (24988), Gait Training (24604) PLAN FOR NEXT VISIT: Add hip abduction [...] that services rendered a (more content not included)...[facility]04-03-2024 History of Present illness Narrative * Laura Shaffer, KASSIDY, DPT - 11/27/2023 11:08 AM EDT Episode Visit Count: 23 Therapist That Will [...] of Care: created on 10/02/23 through 12/25/23 [place] in home exercise program. - Met Patient [...] Patient to be seen for Therapeutic exercise (48362), Neuromuscular re-education (65129), Manual therapy (29847), Therapeutic activities (05214), Self-half-way management (47746), Gait Training (71440) PLAN FOR NEXT VISIT: Add hip abduction [...] Laura Shaffer PT, DPT documented in this encounterCommunity [facility] Medical Center04-01-2024 NoteHNO ID: [id number] Author: DWAIN KOLB PTA Service: ? Author Type: Infantry Operations Specialist Type: Progress Notes Filed: 11/25/2023 15:29 Note [...] not included in billed treatment time. [facility] History of Present illness Narrative* Elizabethebenezer Dwain M, [facility] - 11/25/2023 1:33 PM EDT Episode Visit Count: 22 Therapist That Will [...] time. Dwain Kolb PTA documented in this encounterCommunity [facility] Medical Center04-01-2024 Miscellaneous Notes* Telephone Encounter - Maynor Robles PA-C - 11/25/2023 12:02 PM EDT The following approved medication requests have been transmitted electronically. Requested Prescriptions Pending Prescriptions Disp Refills morphine (PF) 5 mg/mL in NaCl 0.9% 20 mL 20 mL 0 Sig: PF MORPHINE 5 MG/ML SIMPLE CONTINUOUS RATE 0.8636 mg/ day PTM 0.0799 mg every 4 hours (max 6 doses per day) Total daily dose 1.3397mg Maynor Robles PA-C * Telephone Encounter - Lydia Day RN - 11/25/2023 11:45 AM EDT [employer] request for Intrathecal pump med: Requested Prescriptions Pending Prescriptions Disp Refills morphine (PF) 5 mg/mL in NaCl 0.9% 20 mL 20 mL 0 Sig: PF MORPHINE 5 MG/ML SIMPLE CONTINUOUS RATE 0.8636 mg/ day PTM 0.0799 mg every 4 hours (max 6 doses per day) Total daily dose 1.3397mg Lydia Day RN documented in this encounterCommunity Regional Medical Center03-28-2024 NoteHNO ID: [id number] Author: MAYA GOEL PTA Service: ? Author Type: Infantry Operations Specialist Type: Progress Notes Filed: 11/21/2023 15:03 Note [...] not included in billed treatment time. [facility]24 NoteHNO ID: [id number] Author: DWAIN KOLB PTA Service: ? Author Type: Infantry Operations Specialist Type: Progress Notes Filed: 11/19/2023 16:14 Note [...] included in billed treatment time. Dwain Kolb, [facility]03-26-2024 History of Present illness Narrative* Dwain Kolb, [employer] - 11/19/2023 2:58 PM EDT Episode Visit Count: 20 Therapist That Will [...] time. Dwain Kolb PTA documented in this encounterCommunity Regional Medical Center03-26-2024 Miscellaneous Notes* Telephone Encounter - Maynor Robles PA-C - 11/19/2023 11:09 AM EDT The following approved medication requests have been transmitted electronically. Requested Prescriptions Pending Prescriptions Disp Refills morphine (PF) 5 mg/mL in NaCl 0.9% 20 mL 20 mL 0 Sig: PF MORPHINE 5 MG/ML SIMPLE CONTINUOUS RATE 0.8636 mg/ day PTM 0.0799 mg every 4 hours (max 6 doses per day) Total daily dose 1.3397mg Maynor Robles PA-C * Telephone Encounter - Colleen Leong RN - 11/19/2023 10:51 AM EDT Patient phones requesting refills as [...] Panel: No results found for: UQCANN, UQBNZL, GYM7UYG, UQAMPH, UQMAMP, UQBUPRE, UQNORBUP, UQMTHD, UQEDDP, UQTRAM, UQDTRM, UQFNTL, UQNFTL, UQCODE, UQMORP, UQDCDN, UQHCOD, UQOXYC, UQHMOR, UQOXYM, UQCREA, UQPH, UQSPGR, UQOXID, UQSPQ @FLOW([id number])@ Lab Results Component Value Date SUMM FINAL 07/31/2023 No results found for: SUMMAR Last Opioid agreement effective date: 07/31/2023 Please review and advise. Colleen Leong RN documented in this encounterCommunity Regional Medical Center03-22-2024 NoteHNO ID: [id number] Author: DWAIN KOLB PTA Service: ? Author Type: Infantry Operations Specialist Type: Progress Notes Filed: 11/15/2023 12:36 Note [...] included in billed treatment time. Dwain Kolb, [facility]03-22-2024 History of Present illness Narrative* Dwain Kolb, [employer] - 11/15/2023 11:04 AM EDT Episode Visit Count: 19 Therapist That Will [...] time. Dwain Kolb PTA documented in this encounterCommunity Regional Medical Center03-20-2024 NoteHNO ID: [id number] Author: LAURA SHAFFER PT, DPT Service: ? [...] Stop Time : 1523 Laura Shaffer PT, [facility]03-20-2024 History of Present illness Narrative* Laura Shaffer PT, DPT - 11/13/2023 2:11 PM EDT Episode Visit Count: 18 Therapist That Will [...] Laura Shaffer PT, DPT documented in this encounterCommunity Regional Medical Center03-18-2024 NoteHNO ID: [id number] Author: LAURA SHAFFER PT, DPT Service: ? [...] Stop Time : 1207 Laura Shaffer PT, [facility]03-18-2024 History of Present illness Narrative* Laura Shaffer PT, DPT - 11/11/2023 11:00 AM EDT Episode Visit Count: 17 Therapist That Will [...] Time : 1207 Laura Shaffer PT, DPT documented in this encounterCommunity Regional Medical Center03-13-2024 Miscellaneous Notes* Addendum Note - Laura Shaffer PT, DPT - 11/06/2023 1:29 PM EDTAddended by: LAURA SHAFFER on: 11/06/2023 01:29 PM Modules accepted: Orders documented in this encounterCommunity Regional Medical Center03-13-2024 NoteHNO ID: [id number] Author: LAURA SHAFFER PT, DPT Service: ? [...] THERAPY PHYSICAL THERAPY TREATMENT NOTE ASSESSMENT: Emperatriz Ghsoh tolerated the session with decreased symptoms. She [...] was facilitated with verbal cueing. Manual Therapy (38396): 1:1 time: 5 minutes. Assessed lateral aspect [...] Stop Time : 1215 Laura Shaffer PT, [facility]03-13-2024 History of Present illness Narrative* Laura Shaffer PT, DPT - 11/06/2023 11:07 AM EDT Episode Visit Count: 16 Therapist That Will [...] was facilitated with verbal cueing. Manual Therapy (77171): 1:1 time: 5 minutes. Assessed lateral aspect [...] Laura Shaffer PT, DPT documented in this encounterCommunity Regional Medical Center03-11-2024 NoteHNO ID: [id number] Author: LAURA SHAFFER, KASSIDY DPT Service: ? Author Type: Physical Therapist [...] Stop Time : 1211 Laura Shaffer PT, [facility]03-11-2024 History of Present illness Narrative* Laura Shaffer PT, DPT - 11/04/2023 10:58 AM EDT Episode Visit Count: 15 Therapist That Will [...] Laura Shaffer PT, DPT documented in this encounterCommunity [facility] Medical Center03-08-2024 NoteHNO ID: [id number] Author: DWAIN KOLB PTA Service: ? Author Type: Infantry Operations Specialist Type: Progress Notes Filed: 11/01/2023 12:32 Note [...] included in billed treatment time. Dwain Kolb, [facility]03-08-2024 History of Present illness Narrative* Dwain Kolb, [employer] - 11/01/2023 10:59 AM EST Episode Visit Count: 14 Therapist That Will Accept/Oversee The Plan Of Care: Laura Shaffer, PT, DPT Start of Care Date: 10/02/23 Onset Date: 09/30/23 Plan of Care Certification Date: 10/02/23 Next Certification Due Date: 12/25/23 Patient Identified by Name and Date of : Yes REHABILITATION AND SPORTS THERAPY PHYSICAL THERAPY TREATMENT NOTE ASSESSMENT: Emperatriz Ghohs tolerated the session with decreased symptoms. She [...] time. Dwain Kolb PTA documented in this encounterCommunity Regional Medical Center03-06-2024 NoteHNO ID: [id number] Author: LAURA SHAFFER PT, DPT Service: ? [...] of Care: created on 10/02/23 through 12/25/23 [place] in home exercise program. - Met Patient [...] Patient to be seen for Therapeutic exercise (11820), Neuromuscular re-education (99635), Manual therapy (80449), Therapeutic activities (23180), Self-half-way management (10928), Gait Training (92520) PLAN FOR NEXT VISIT: * Add stepper [...] of home program was (more content not included)...[facility]03-06-2024 History of Present illness Narrative * Laura Shaffer PT, DPT - 10/30/2023 11:02 AM EST Episode Visit Count: 13 Therapist That Will [...] walking in the house, lifting, physical activities, andrecreational activities, and minimal improvement in walking in the community. She has met 2/6 goalsand progressed towards the remaining goals. Patient continues to present with impairments in ADL's,gait, range of motion, strength, and symptom management [...] of Care: created on 10/02/23 through 12/25/23 [place] in home exercise program. - Met Patient [...] Patient to be seen for Therapeutic exercise (57097), Neuromuscular re-education (44841), Manual therapy (38931), Therapeutic activities (51113), Self-half-way management (21905), Gait Training (32749) PLAN FOR NEXT VISIT: * Add stepper [...] Laura Shaffer PT, DPT documented in this encounterCommunity Regional Medical Center03-04-2024 NoteHNO ID: [id number] Author: DWAIN KOLB PTA Service: ? Author Type: Infantry Operations Specialist Type: Progress Notes Filed: 10/28/2023 12:05 Note [...] included in billed treatment time. Dwain Kolb [facility]03-04-2024 History of Present illness Narrative* Dwain Kolb, [facility] - 10/28/2023 10:44 AM EST Episode Visit Count: 12 Therapist That Will [...] time. Dwain Kolb PTA documented in this encounterCommunity Regional Medical Center03-01-2024 History of Present illness Narrative* Dwain Kolb PTA - 10/25/2023 11:40 AM EST Program_ID:[id number] Access Code: [email or web address] URL: [email or web address] Date: 10-25-2023 Prepared By: Laura Shaffer Program Notes Exercises - Supine ITB Stretch with Strap - 2 x daily - 7 x weekly - 1 sets - 3 reps - seated hamstring curl with anchored resistance 50 degrees to 90 degree bend - 2 x daily - 7 x weekly - 3 sets - 10 reps * Dwain Kolb PTA - 10/25/2023 10:55 AM EST Episode Visit Count: 11 Therapist That Will [...] an ITB stretch in supine with the strapand she also was provided orange band and [...] lateral hip and thigh to the lateral kneetoday. Pain: Pain Pain Level: 7 Pain Location: [...] steps x 3 laps 3: Access Code: [email or web address] URL: [email or web address] Date: 10/25/2023 Prepared by: DWAIN KOLB Exercises - Supine ITB Stretch with Strap (Mirrored) - 2 x daily - 7 x weekly - 1sets - 3 reps - 15 second hold [...] time. Dwain Kolb PTA documented in this encounterCommunity Regional Medical Center02-28-2024 History of Present illness Narrative* Dwain Kolb PTA - 10/23/2023 10:44 AM EST Episode Visit Count: 10 Therapist That Will [...] and exercise equipment without the assistance of herue's to complete. She demonstrated improvements in progression of resistance on the shuttle and theTKE and she required less assist with slr's [...] time. Dwain Kolb PTA documented in this encounterCommunity Regional Medical Center02-23-2024 History of Present illness Narrative* Dwain Kolb PTA - 10/18/2023 12:18 PM EST Program_ID:[id number] Access Code: [email or web address] URL: [email or web address] Date: 10-18-2023 Prepared By: Laura Shaffer Program Notes Exercises - Standing Hip Flexion AROM - 2 x daily - 7 x weekly - 2 sets - 10 reps * Dwain Kolb PTA - 10/18/2023 11:43 AM EST Episode Visit Count: 8 Therapist That Will [...] support 2 x 10 2: Access Code: [email or web address] URL: [email or web address] Date: 10/18/2023 Prepared by: DWAIN KOLB Exercises - Standing Hip Flexion AROM - 2 x daily - 7 x weekly - 2 sets - 10 reps- 3 second hold Billing KX Modifier : [...] time. Dwain Kolb PTA documented in this encounterCommunity Regional Medical Center02-22-2024 Miscellaneous Notes* Telephone Encounter - Kimberlee Leon RN - 10/17/2023 11:35 AM EST Pt notified of the below, pt verbalized concerns about previously having difficulty breathing and possibly being related to PTM dosing, this was discussed at last office visit The patient will continue with her intrathecal morphine pump and PTM dosing. She was encouraged to gradually increase PTM d osing to see if it affects her breathing. [...] she could use PTM with Tramadol. I advise d pt not to use PTM while taking surgeons prescribed narcotics. Pt verbalized understanding Kimberlee Leon RN October 17, 2023 11:43 AM * Telephone Encounter - Boubacar Andrews MD - 10/17/2023 11:21 AM EST She is now 2 weeks post op. She should be relying on PTM dosing of IT pump once post op pain meds are gone. * Telephone Encounter - Kimberlee Leon RN - 10/17/2023 11:10 AM EST Pt states she had her 2wk post op visit on Saturday with ortho, pt states she has been advised to contact pain management for further scripts, pt states she has enough meds to get to Saturday or Saturday, she is currently taking: *Tramadol 50mg 4xdaily scheduled, with tylenol *Oxycodone 5mg 4-6xdaily as needed for breakthru pain Please advise Kimberlee Leon RN October 17, 2023 11:14 AM documented in this encounterCommunity Regional Medical Center02-21-2024 History of Present illness Narrative* Laura Shaffer PT, DPT - 10/16/2023 10:21 AM EST Episode Visit Count: 7 Therapist That Will [...] She required verbal and visual cues. I addedsoft tissue massage to left quadriceps to decrease tenderness. The patient will continue to benefitfrom ongoing skilled physical therapy to continue with [...] Laura Shaffer PT, DPT documented in this encounterCommunity Regional Medical Center02-19-2024 History of Present illness Narrative* Dwain Kolb, [employer] - 10/14/2023 9:58 AM EST Episode Visit Count: 6 Therapist That Will [...] complete as she reported increased pain and becametearful. She also had difficulty with extension stretch on step due to discomfort in the R knee while performing. Despite her pain, she demonstrated improvements in addition of 1# for saq's and increased resistance on the shuttle. She also tolerated lowering the seat height for sit to stand and didwell with step ups on 4 step. The [...] time. Dwain Kolb PTA documented in this encounterCommunity Regional Medical Center02-16-2024 History of Present illness Narrative* Maya Goel PTA - 10/11/2023 11:49 AM EST Episode Visit Count: 5 Therapist That Will [...] time. Maya Goel PTA documented in this encounterCommunity Regional Medical Center02-14-2024 History of Present illness Narrative* Dwain Kolb PTA - 10/09/2023 10:47 AM EST Episode Visit Count: 4 Therapist That Will [...] blood on her dressing after her last sessionbut not a copious amount. She has an [...] time. Dwain Kolb PTA documented in this encounterCommunity Regional Medical Center02-12-2024 History of Present illness Narrative* Laura Shaffer PT, DPT - 10/07/2023 8:41 AM EST Episode Visit Count: 3 Therapist That Will [...] Session Stop Time : 944 Laura Shaffer PT DPT documented in this encounterCommunity Regional Medical Center02-08-2024 History of Present illness Narrative* Maya Goel PTA - 10/03/2023 9:34 AM EST Program_ID:[id number] Access Code: [email or web address] URL: [email or web address] Date: 10-03-2023 Prepared By: Laura Shaffer Program Notes Exercises - Supine Short Arc Quad - 2 x daily - 7 x weekly - 2 sets - 10 reps - Seated Long Arc Quad - 2 x daily - 7 x weekly - 2 sets - 10 reps * Maya Goel PTA - 10/03/2023 8:45 AM EST Episode Visit Count: 2 Therapist That Will [...] Home Exercise Program Assigned: 1: Access Code: [email or web address] URL: [email or web address] Date: 10/03/2023 Prepared by: MAYA GOEL Exercises [...] Time : 0850 Session Stop Time : 52 Time spent on recumbent stepper not included in billed treatment time. Cold pack applied to left knee with patient in supine with left LE elevated on pillow for 10 minutes at the end of the session. Cold pack time not included in billed treatment time. Maya Goel PTA documented in this encounterCommunity Regional Medical Center02-07-2024 History of Present illness Narrative* Laura Shaffer, PT, DPT - 10/02/2023 4:42 PM EST Program_ID:[id number] Access Code: [email or web address] URL: [email or web address]/ Date: 10-02-2023 Prepared By: Laura Shaffer Program [...] weekly - 1 sets - 5 reps * Laura Shaffer PT DPT - 10/02/2023 10:17 AM EST Episode Visit Count: 1 Therapist That Will [...] of Care: created on 10/02/23 through 12/25/23 [place] in home exercise program. Patient will decrease [...] Planned: 24 Planned Treatment Interventions: Therapeutic exercise (76043), Neuromuscular re- education (67849), Manual therapy (35193), Therapeutic activities (57730), Self- half-way management (95187), Gait Training (20400) PLAN FOR NEXT VISIT: L TKA protocol to improve left knee flexion range of motion and strength. Patient demonstrates good understanding of plan of care and treatment. The above goals and plan of care were discussed and agreed upon by patient/family. SUBJECTIVE: The patient is s/p 09/30/2023. She has severe pain with bending her left knee. The patient has a backpain pump. Patient Goals: The patient's goal is [...] Conditions: Total Knee Replacement-Right, Total Knee Replacement-Left, TotalHip Replacement-Left, Total Hip Replacement-Right, Spine fusion - [...] Laura Shaffer PT, DPT documented in this encounterCommunity Regional Medical Center02-01-2024 Miscellaneous Notes* Telephone Encounter - Maynor Robles PA-C - 09/26/2023 1:36 PM EST The following approved medication requests have been transmitted electronically. Requested Prescriptions Pending Prescriptions Disp Refills morphine (PF) 5 mg/mL in NaCl 0.9% 20 mL 20 mL 0 Sig: PF MORPHINE 5 MG/ML SIMPLE CONTINUOUS RATE 0.8636 mg/ day PTM 0.0799 mg every 4 hours (max 6 doses per day) Total daily dose 1.3397mg Maynor Robles PA-C * Telephone Encounter - Lydia Day RN - 09/26/2023 1:20 PM EST [employer] request pump refill Rx: Requested Prescriptions Pending Prescriptions Disp Refills morphine (PF) 5 mg/mL in NaCl 0.9% 20 mL 20 mL 0 Sig: PF MORPHINE 5 MG/ML SIMPLE CONTINUOUS RATE 0.8636 mg/ day PTM 0.0799 mg every 4 hours (max 6 doses per day) Total daily dose 1.3397mg Lydia Day RN documented in this encounterCommunity Regional Medical Center11-15-2023 Miscellaneous Notes* Telephone Encounter - Kaylene Driver MA - 07/10/2023 10:17 AM EST Items addressed in this encounter: MyChart Encounter Pt has a follow up scheduled with Dr Andrews. Able to close encounter. Kaylene Driver MA July 10, 2023 10:17 AM 10:17 AM documented in this encounterCommunity Regional Medical Center11-15-2023 Instructions* Patient Instructions* Jaci Nixon APRN.SHANA - 07/10/2023 9:45 AM EST The [facility] [...] refill [facility] and schedule LEFT SI JOINT INJECTION PRN-last done on 06/27/23-received 80% relief. Continue HEP Continue to follow-up with Dr. Soto (hip) prn Follow-up with Orthopedics for left carpal tunnel surgery 04/2023 Continue to follow-up with [employer] Previously discussed changing to Dilaudid and adding Marcaine if higher dose of Morphine not effective. AVOID NSAIDS and spicy foods Follow-up on 07/31/[address] Juliana Nixon APRN.SHANA documented in this encounterCommunity Regional Medical Center11-15-2023 History of Present illness Narrative* Jaci Nixon APRN.CNP - 07/10/2023 9:44 AM EST This video visit was performed via [employer] video visit. Patient consented to receive health care services via virtual visit for this encounter [facility] Patient Location: Patient Home or Place of Residence I have communicated my name and active licensure. The patient's identity and physical location wereverified at the time of this visit. Either the patient or their legal energy conservation representative has been informed of the risks and benefits of -- and alternatives to -- treatment through a remote evaluation andconsents to proceed with the evaluation remotely. Chief Complaint: Pain History of Present Illness: Emperatriz Colón Dotonyamagui is a 73 year old year old female being seen at [facility] for a evaluation and/or management of their chronic pain. This patient has an office visit on 04/15/[address] Lyn. She is scheduled for a virtual visit today. On 06/27/23 she had a LEFT SI JOINT INJECTION and received 80% relief. She continues to f/u withthe teachers assistant due to SOB. She did state that [...] 1- 2 grams to affectedarea TID PRN morphine (PF) 5 mg/mL in [...] refill Continue SI joint stabil[facility] and schedule LEFT SI JOINT INJECTION PRN-last done on 06/27/23-received 80% relief. Continue HEP Continue to follow-up with Dr. Soto (hip) prn Follow-up with Orthopedics for left carpal tunnel surgery 04/2023 Continue to follow-up with [employer] Previously discussed changing to Dilaudid and adding Marcaine if higher dose of Morphine not effective. AVOID NSAIDS and spicy foods Follow-up on 07/31/[address] Juliana Nixon APRN.ENGLISH LANGUAGE LEARNER TUTOR documented in this [facility] [facility] Miscellaneous Notes* Telephone Encounter - Leida Franz - 06/12/2023 1:[address] Lyn, Please build a case for Emperatriz so she can be added to your Jun 27 schedule at 11:05. Leida Medrano June 12, 2023 1:57 PM documented in this encounterCommunity Regional Medical Center10-11-2023 Note* Exam Date Time Procedure Performing Provider Status 06/05/23 10:31 AM VL Venous US/Doppler One Leg (for DVT). Auth (Verified) [facility] 08-21-2023 Instructions* Patient Instructions* Fatoumata Lyn [...] refill [facility] SI [facility] Continue HEP. Continue to follow-up with Dr. Soto (hip) prn Follow-up with Orthopedics for left carpal tunnel surgery 04/2023. Use [place] from last CTS on the right. Continue to follow-up with Tyre Finisher And Examiner appointment for further evaluation of SOB Previously discussed changing to Dilaudid and adding Marcaine if higher dose of Morphine not effective. Follow-up in 3 months with NIPPING MACHINE OPERATOR AVOID NSAIDS and spicy foods documented in this encounterCommunity Regional Medical Center08-21-2023 History of Present illness Narrative* Fatoumata Lyn DO - 04/15/2023 3:15 PM EDTSummary: Pain Management follow-up DATE: April 15, 2023 Chief Complaint: LBP , thoracic pain, Si joint pain History of Present Illness: Emperatriz Ghosh is a 72 year old female being [facility] for a evaluation and/or management of their [...] doses per day) Total daily dose 1.3397mg -05/2029 Continue to wean off Percocet 7.5/325 mg Continue Gabapentin managed by Dr. Luda Ann- recommend starting to wean down Gabapentin Continue using Lido-Prilo cream.-call for a refill Continue SI joint stabilizer [facility] Continue HEP. Continue to follow-up with Dr. [...] She is not scheduled to see the teachers assistant until . She is not takingthe Percocet. [...] encounter was entered by Anju Bradshaw, medical records receptionist for Dr. Fatoumata Lyn on April 15, [...] Lyn. April 15, 2023. documented in this encounterCommunity Regional Medical Center08-02-2023 Miscellaneous Notes* Telephone Encounter - Colleen Leong RN - 03/27/2023 11:25 AM EDT Script faxed to [employer] with confirmation. Colleen Leong RN March 27, [...] provided. For clinical consultation, please call . @FLOW([id number])@ Lab Results Component Value Date SUMM FINAL 01/07/2023 No results found for: SUMMAR Please review and advise. Colleen Leong RN documented in this encounterCommunity Regional Medical Center07-27-2023 Miscellaneous Notes* Telephone Encounter - Jaci Nixon APRN.CNP - 03/21/2023 3:50 PM EDT I agree, we need the records regarding the surgery to prescribe narcotics. * Telephone Encounter - Kimberlee Leon RN - 03/21/2023 2:40 PM EDT Pt lmom stating she is having carpel tunnel surgery and surgeon will not rx for post op pain, she is asking for us to manage, I called her back to find out when surgery is and to let her know that weneed records to rx, once records are available will you rx, please advise Kimberlee Leon RN March 21, 2023 2:41 [address] in this [facility]06-21-2023 Instructions* Patient Instructions* Jaci Nixon APRN.CNP [...] refill Continue SI [facility] Continue HEP. Continue to follow-up with Dr. Soto (hip) prn Follow-up with Orthopedics for b/l carpal tunnel syndrome surgical evaluation. Previously discussed changing to Dilaudid and adding Marcaine if Morphine is not effective F/u in 2 months-ok to schedule with Dr. Riki Nixon APRN.ENGLISH LANGUAGE LEARNER TUTOR documented in this encounterCommunity Regional Medical Center06-21-2023 History of Present illness Narrative* Jaci Nixon APRN.CNP - 02/13/2023 2:32 PM EDT This video visit was performed via [employer] video visit. Patient consented to receive health care services via virtual visit for this encounter Provider Location: Non-[facility] Patient Location: Patient Home or Place of Residence I have communicated my name and active licensure. The patient's identity and physical location wereverified at the time of this visit. Either the patient or their legal energy conservation representative has been informed of the risks and benefits of -- and alternatives to -- treatment through a remote evaluation andconsents to proceed with the evaluation remotely. Chief Complaint: Pain History of Present Illness: Emperatriz Ghosh is a 72 year old year old female being seen at [facility] for a evaluation [...] doses per day) Total daily dose 1.3397mg -05/2029 Continue to wean off Percocet 7.5/325 mg Continue Gabapentin managed by Dr. Luda Ann- recommend starting to wean down Gabapentin Continue using Lido-Prilo cream.-call for a refill Continue SI [facility] Continue HEP. Continue to follow-up with Dr. Soto (hip) prn Follow-up with Orthopedics for b/l carpal tunnel syndrome surgical evaluation. Previously discussed changing to Dilaudid and adding Marcaine if Morphine is not effective F/u in 2 months-ok to schedule with Dr. Riki Nixon APRN.ENGLISH LANGUAGE LEARNER TUTOR documented in this encounterCommunity Regional Medical Center06-05-2023 Miscellaneous Notes* Telephone Encounter - Colleen Leong RN - 01/28/2023 1:18 PM EDT Script faxed to [employer] with confirmation. Colleen Leong RN January 28, [...] provided. For clinical consultation, please call . @FLOW([id number],)@ Lab Results Component Value Date SUMM FINAL 01/07/2023 No results found for: SUMMAR Please review and advise. Colleen Leong RN documented in this encounterCommunity Regional Medical Center06-02-2023 Miscellaneous Notes* Telephone Encounter - Rosa Villanueva RN - 01/25/2023 11:44 AM EDTSummary: careline message regarding percocet Pt contacted, acknowledges below, and is requesting percocet refill. Chart review done and pt states that she has been weaning from percocet but is need for another 'script. Please advise medication POC. Rosa Villanueva RN January 25, 2023 11:48 AM * Telephone Encounter - Kimberlee Leon RN - 01/25/2023 9:32 AM EDT There [...] dr share records with our office. Kimberlee Leon RN January 25, 2023 9:55 AM * [...] 24, 2023 11:00 AM documented in this encounterCommunity Regional Medical Center05-15-2023 Instructions* Patient Instructions* Fatoumata Lyn DO - [...] refill Continue SI joint stabil[facility] Continue HEP. Continue to follow-up with Dr. Soto (hip) prn Follow-up with Orthopedics for b/l carpal tunnel syndrome surgical evaluation. Follow-up in 4-6 weeks with NIPPING MACHINE OPERATOR Order UDS Discussed changing to Dilaudid and adding Marcaine if Morphine is not effective. documented in this encounterCommunity Regional Medical Center05-15-2023 History of Present illness Narrative* Fatoumata Lyn DO - 01/07/2023 11:00 AM EDTSummary: Pain Management follow-up DATE: January 07, 2023 Chief Complaint: Low back pain History of Present Illness: Emperatriz Ghosh is a 72 year old female [facility] a [facility] and/or management of their [...] refill Continue SI joint stabilizer [facility] Continue HEP. Continue to follow-up with Dr. [...] was worse than her right hand. VAS: /10 Chief complaint: LBP Location: across her back [...] pain is persistent. Medications are helping Emperatriz Colón Sekoumagui to have an improved quality of life. [...] encounter was entered by Anju Bradshaw, medical records receptionist for Dr. Fatoumata Lyn on January 07, [...] Lyn. January 07, 2023. documented in this encounterCommunity Regional Medical Center04-11-2023 Miscellaneous Notes* Telephone Encounter - Camila Dubon RN - 12/04/2022 8:29 AM EDT Patient notified. Order faxed. Camila Dubon RN * Telephone Encounter - Camila Dubon RN - 12/03/2022 1:27 PM EDT Patient left a message requesting an increase of her ITP dosing during her upcoming refill on 12/05.Please advise. Camila Dubon RN documented in this encounterCommunity Regional Medical Center03-29-2023 Miscellaneous Notes* Telephone Encounter - Fatoumata Lyn [...] provided. For clinical consultation, please call . @FLOW([id number])@ Lab Results Component Value Date SUMM FINAL 08/22/2022 No results found for: SUMMAR Please review and advise. Yue Ramirez RN documented in this encounterCommunity Regional Medical Center03-07-2023 Miscellaneous Notes* Telephone Encounter - Fatoumata Lyn [...] provided. For clinical consultation, please call . @FLOW([id number])@ Lab Results Component Value Date SUMM FINAL 08/22/2022 No results found for: SUMMAR Please review and advise. Yue Ramirez RN documented in this encounterCommunity Regional Medical Center03-06-2023 Instructions* Patient Instructions* Fatoumata Lyn DO - [...] refill Continue SI joint stabilizer [facility] Continue HEP. Continue to follow-up with Dr. Soto (hip) prn Referral for physical therapy Follow-up in 4-6 weeks with NIPPING MACHINE OPERATOR. documented in this encounterCommunity Regional Medical Center03-06-2023 History of Present illness Narrative* Fatoumata San Riki, DO - 10/29/2022 10:45 AM ESTSummary: Pain Management follow-up DATE: October 29, 2022 Chief Complaint: Low back pain History of Present Illness: Emperatriz Ghosh is a 72 year old [facility] and/or management of their [...] refill Continue SI joint [facility] Continue HEP. Follow-up with Dr. Soto (hip) prn Do not wet surgical site. Continue with sponge baths until Saturday. Transition over to taking showers on Saturday. Referral to [facility] for ITP maintenance sent in today Discussed [...] per day) Patient to establish care with [facility] nursing services cholecalciferol (VITAMIN D3) [...] encounter was entered by Anju Bradshaw, medical records receptionist, for Dr. Fatoumata Lyn on October 29, [...] Lyn. October 29, 2022. documented in this encounterCommunity Regional Medical Center02-26-2023 Miscellaneous Notes* Telephone Encounter - Fatoumata Lyn DO - 10/21/2022 7:58 AM EST Ok. Thanks. * Telephone Encounter - Kimberlee Leon RN - 10/19/2022 10:30 AM EST Amos from [facility], states pt referral has been processed, she will be seen in the office for pump fills per her insurance. Kimberlee Leon RN October 19, 2022 10:31 AM documented in this encounterCommunity Regional Medical Center02-07-2023 Instructions* Patient Instructions* Fatoumata Lyn DO - [...] refill Continue SI joint stabilizer [facility] Continue HEP. Follow-up with Dr. Soto (hip) prn Do not wet surgical site. Continue with sponge baths until Saturday. Transition over to taking showers on Saturday. Referral to [facility] for ITP maintenance sent in today Discussed starting physical therapy in 4 to 6 weeks Follow-up in 4-[address] Lyn in the office documented in this encounterCommunity Regional Medical Center02-07-2023 History of Present illness Narrative* Fatoumata Lyn DO - 10/02/2022 2:15 PM ESTSummary: Pain Management f/up DATE: October 02, 2022 Chief Complaint: Back Pain History of Present Illness: Emperatriz Ghosh is a 72 year old female [facility] for a evaluation and/or [...] refill Continue SI joint stabilizer [facility] Continue HEP. Follow-up with Dr. Soto (hip) [...] seen back in the office or by [facility]. The patient denies any new diagnoses, hospital visits or ER visits. Since the last office visit the patientsmedical history has not changed. VAS: 12/03 Chief complaint: LBP Location: across her back [...] SYNCHROMED II MEDTRONIC INTRATHECAL PUMP WITH PERSONAL PROFESSOR OF APOLOGETICS cholecalciferol (VITAMIN D3) 5,000 unit tab Take [...] pain is persistent. Medications are helping Emperatriz Colón Augie to have an improved quality of life. [...] All medical record entries made by the layneibDasha Bradshaw were at my direction and in my presence. I have reviewed the chart and discharge instructions and agree that the record reflects my personal performance and is accurate and complete. Electronically Signed: Dr. Lyn. October 02, 2022 documented in this encounterCommunity Regional Medical Center02-01-2023 Miscellaneous Notes* Telephone Encounter - Fatoumata Lyn [...] Fatoumata Lyn DO You; Mr Juanpablo Monson [place] 10 minutes ago (1:23 PM) JL Please contact patient to notify her that she has preadmission testing tomorrow at 10 AM. She can contact [phone] if she needs to reschedule the surgery [...] 26, 2022 1:37 PM documented in this encounterCommunity Regional Medical Center02-01-2023 Miscellaneous Notes* Telephone Encounter - Leesa Rodrigues RN - 09/26/2022 1:52 PM EST p documented in this encounterCommunity Regional Medical Center01-25-2023 Instructions* Patient Instructions* Jaci Nixon APRN.CNP - 09/19/2022 3:06 PM EST The OARRS report has been reviewed and is consistent with the patient s medical history and medication intake. Encouraged to do HEP. Continue Percocet 7.5/325 mg TID PRN. Continue Gabapentin managed by Dr. Luda Ann Continue using Lido-Prilo cream.-call for a refill Continue SI joint [facility] Continue HEP. Follow-up with Dr. Soto (hip) prn Scheduled for ITP on 09/28/22 Jaci Nixon APRN.SHANA documented in this encounterCommunity Regional Medical Center01-25-2023 History of Present illness Narrative* Jaci Nixon APRN.CNP - 09/19/2022 2:59 PM EST This video visit was performed via [employer] video visit. Patient consented to receive health care services via virtual visit for this encounter Provider Location: Non[facility] Patient Location: Patient Home or Place of Residence Risks, benefits, and limitations of receiving care virtually were discussed with the patient. The patient expressed understanding and is willing to proceed. Chief Complaint: Pain History of Present Illness: Emperatriz Ghosh is a 72 year old year old female being seen at [facility] for a evaluation and/or management of their chronic pain. This patient has an office visit on 04/16/[address] Lyn, virtual visit with me on 08/16/22. She is scheduled for a [...] 1- 2 grams to affectedarea TID PRN lidocain-me.dthqqqo-clfp-badxa 0.5-20-0.035-5 % ptmd EMLA CREAM PRILOCAINE 2%/LIDOCAINE [...] refill Continue SI joint stabilizer [facility] Continue HEP. Follow-up with Dr. Soto (hip) prn Scheduled for ITP on 09/28/22 Jaci Nixon APRN.CNP documented in this encounterCommunity Regional Medical Center12-29-2022 Miscellaneous Notes* Telephone Encounter - Jaci Nixon APRN.CNP - 08/23/2022 2:09 PM EST Noted and thank you. * Telephone Encounter - Kimberlee Leon RN - 08/23/2022 9:26 AM EST Pt submitted uds Kimberlee Leon RN August 23, 2022 9:26 AM * [...] pt for a UDS. documented in this encounterCommunity Regional Medical Center12-12-2022 Miscellaneous Notes* Telephone Encounter - [...] advise. Yue Ramirez RN documented [facility] this [facility]11-02-2022 Miscellaneous Notes* Telephone Encounter - Yue [...] 27, 2022 3:[address] [facility]10-26-2022 History of Present illness Narrative* Beth Abreu, CONTENT MANAGEMENT CONSULTANT - 06/20/2022 3:49 PM EDT Final pulmonary testing results faxed and confirmed to Dr Randi Ann at [phone] on 06/20/22. documented in this encounterCommunity Regional Medical Center10-21-2022 History of Present illness Narrative* Beth Abreu RRT - 06/15/2022 10:25 AM EDT PULM FUNCTION SMARTBLOCK: Provider: Luda Ann DO Assisting Tech: Beth Abreu RRT Spirometry w/BD: 1 DLCO: 1 LV - Box: 1 MVV: 1 documented in this encounterCommunity Regional Medical Center10-19-2022 Miscellaneous Notes* Telephone Encounter - Fatoumata Lyn [...] lidocaine prilocaine RX that was sent to [facility]. This was unable to be filled how the RX was written because it was a compound medication. New rx requested. Yue Ramirez RN June 13, 2022 10:34 AM documented in this encounterCommunity Regional Medical Center10-18-2022 Miscellaneous Notes* Telephone Encounter - Fatoumata Lyn DO - 06/12/2022 7:00 AM EDT The following approved medication requests have been transmitted electronically. Requested Prescriptions Pending Prescriptions Disp Refills oxyCODONE-acetaminophen (PERCOCET) 7.5-325 mg tablet 90 tablet 0 Sig: Take 1 tablet by mouth three times daily as needed for up to 30 days. lidocain-me.pouzhzk-ttxf-wpjed 0.5-20-0.035-5 % ptmd 7 Patch 1 Sig: EMLA CREAM PRILOCAINE 2%/LIDOCAINE 2% Fatoumata Lyn DO * Telephone Encounter - Colleen Leong RN - 06/11/2022 1:02 PM EDT Pt requesting refill as follows Requested Prescriptions Pending Prescriptions Disp Refills oxyCODONE-acetaminophen (PERCOCET) 7.5-325 mg tablet 90 tablet 0 Sig: Take 1 tablet by mouth three times daily as needed for up to 30 days. lidocain-me.byqmqwb-nzws-lhwhw 0.5-20-0.035-5 % ptmd 7 Patch 1 Sig: EMLA CREAM PRILOCAINE 2%/LIDOCAINE 2% Please review and advise. Colleen Leong RN documented in this encounterCommunity Regional Medical Center09-09-2022 Miscellaneous Notes* Telephone Encounter - Fatoumata Lyn [...] 30 days. Please review and advise. Yue James, RN documented in this encounterCommunity Regional Medical Center08-22-2022 Instructions* Patient Instructions* Fatoumata Lyn DO - 04/16/2022 10:23 AM EDT 1) The OARRS report has been reviewed and is consistent with the patient s medical history and medication intake. 2) Encouraged to do HEP. 3) Continue Percocet 7.5/325 mg TID PRN. 4) Continue Gabapentin managed by Dr. Luda Ann 5) Continue using Lido-Prilo cream. 6) Continue SI joint stabilizer belt from [facility]. 7) Continue HEP. 8) Follow-up with Dr. Soto (hip) prn 9) Schedule ITP trial with Morphine x 3 days in hospital. documented in this encounterCommunity Regional Medical Center08-22-2022 History of Present illness Narrative* Fatoumata Lyn DO - 04/16/2022 10:18 AM EDTSummary: Pain management office follow-up visit DATE: April 16, 2022 Chief Complaint: Back and mid-back History of Present Illness: Emperatriz Ghosh is a 71 year old female [facility] and/or [...] 6) Continue SI joint stabilizer belt from [facility]. 7) Continue HEP. 8) Follow-up with Dr. [...] PLUS ORAL) SENIOR MULTIVITAMIN PLUS ORAL TABLET lidocain-me.dkngxgk-bkkp-lgjvk 0.5-20-0.035-5 % ptmd EMLA CREAM PRILOCAINE 2%/LIDOCAINE [...] pain is persistent. Medications are helping Emperatriz Colón Sekoumagui to have an improved quality of life. Patient compliance with Opioid Contract: patient is compliant PDMP website checked and validated. All prescriptions have been APPROPRIATELY filled. No suspiciousactivity was identified. 04/16/2022 by Fatoumata Lyn, DO The patient understands the goal of our treatment is a reduction in pain and/or an improved level of functioning with activities of daily living. If at any time the patient does not feel the medications are helping them to achieve these goals, the medications may be discontinued. Fatoumata Lyn DO documented in this encounterCommunity Regional Medical Center07-19-2022 Instructions* Patient Instructions* Jaci Nixon APRN.CNP - 03/13/2022 9:41 AM EDT The OARRS report has been reviewed and is consistent with the patient s medical history and medication intake. Encouraged to do HEP. Continue Percocet 7.5/325 mg TID Continue Gabapentin managed by Dr. Luda Ann Continue using Lido-Prilo cream. Continue [facility] Continue HEP. Follow-up with Dr. Soto (hip) prn F/u in 1 month -Please schedule the next appointment in [employer] or call [phone] Option 1. documented in this encounterCommunity Regional Medical Center07-19-2022 History of Present illness Narrative* Jaci Nixon APRN.CNP - 03/13/2022 9:40 AM EDTSummary: F/u DATE: March 13, 2022 This video visit was performed via [employer] video visit. Patient consented to receive health care services via virtual visit for this encounter [facility] Patient Location: Patient Home or Place of Residence Risks, benefits, and limitations of receiving care virtually were discussed with the patient. The patient expressed understanding and is willing to proceed. Chief Complaint: Pain History of Present Illness: Emperatriz Ghosh is a 71 year old year old female being seen at [facility] for a evaluation [...] mg EC tablet ASPIR-81 TABLET DELAYED RELEASE Vj-K9-jpe-elst-vzc-bboc-boron (CALTRATE 600-D PLUS MINERALS) 600 mg calcium- 800 unit-40 mg chew CALTRATE 600+D CHEW multivit with minerals/lutein (MULTIVITAMIN 50 PLUS ORAL) SENIOR MULTIVITAMIN PLUS ORAL TABLET lidocain-me.pgotoiz-gydi-mgnkm 0.5-20-0.035-5 % ptmd EMLA CREAM PRILOCAINE 2%/LIDOCAINE [...] cream. Continue SI joint stabilizer [facility] Continue HEP. Follow-up with Dr. Soto (hip) prn F/u in 1 month -Please schedule the next appointment in [facility] or call [phone] Option 1. Jaci Nixon APRN.SHANA documented in this encounterCommunity Regional Medical Center06-30-2022 Miscellaneous Notes* Telephone Encounter - Yaneli Cat RN - 02/22/2022 5:08 PM EDT Patient phones requesting refills as follows: Pending Prescriptions Disp Refills OXYCODONE-ACETAMINOPHEN 7.5 MG-325 MG TABLET 90 tablet 0 Sig: Take 1 tablet by mouth three times daily as needed. ANN Class: C-II TELLY: No Please review and advise. Yaneli Cat RN documented in this encounterCommunity Regional Medical Center06-23-2022 Instructions* Patient Instructions* Fatoumata Lyn DO - 02/15/2022 11:23 AM EDT 1) The OARRS report has been reviewed and is consistent with the patient s medical history and medication intake. 2) Encouraged to do HEP. 3) Continue Percocet 7.5/325 mg TID PRN. .4) Continue Gabapentin managed by Dr. Luda Ann 5) Continue using Lido-Prilo cream. 6) Continue SI joint stabilizer [facility] 7) Continue HEP. 8) Follow-up with Dr. Soto (hip) prn 9) F/U with JANEY Gold on 03/13/22 via virtual visit. documented in this encounterCommunity Regional Medical Center06-23-2022 History of Present illness Narrative* Fatoumata Lyn DO - 02/15/2022 10:41 AM EDT DATE: February 15, 2022 Chief Complaint: Lower back and mid back History of Present Illness: Emperatriz Ghosh is a 71 year old year old female being seen at [facility] for a evaluation [...] She got the SIJ stabilizer belt [facility] as per our order on her last [...] 6) Continue SI joint stabilizer belt [facility] 7) Continue HEP. 8) Follow-up with Dr. [...] continued. Fatoumata Lyn DO documented in this encounterCommunity Regional Medical Center05-20-2022 NotePhysical Therapy Outpatient Progress Summary Medical Diagnosis: [...] SIDE OF HER BACK HAS FELT BETTER [facility] PATIENT NAME: EMPERATRIZ GHOSH [address] [place] MEDICAL REC #: [id number] [place] [address] ADMIT DATE: SERVICE DATE: 01/12/22 Physical Therapy Progress Note ATTENDING PHY: RikiFatoumata DO SINCE STARTING THERAPY AND FELT THAT [...] HIP Flexors 4-4+/5 4-4+/5 Abductors 4-4+/5 4-4+/5 [facility] PATIENT NAME: EMPERATRIZ GHOSH [address] [place] MEDICAL REC #: [id number] [place] [address] ADMIT DATE: SERVICE DATE: 01/12/22 Physical Therapy [...] MID LATERAL L GL (more content not included)...[facility]04-19-2022 NotePhysical Therapy Outpatient Evaluation Medical Diagnosis: LEG [...] Demographics: Age: 71Y Gender: Female Primary Language: Belgian Preferred Language: Belgian Initial Evaluation Date: 12/12/2021 Referring Clinician: Dr. Fatoumata Lyn Referring Service/Team: Pain Management Concurrent Services: None. Screening for COVID-19 Does the patient/client present any of the following symptoms? Response Symptoms Cough No [facility] PATIENT NAME: EMPERATRIZ GHOSH [address] [place] MEDICAL REC #: [id number] [place] [address] ADMIT DATE: SERVICE DATE: 12/12/21 Physical Therapy [...] fusion L1-L3 in 2011 and L3-L4 in 2016, GERD, Hiatal hernia, OA Pain Management: Lower [...] Lidocaine-Prilocaine cream Allergies: Significant rehabilitation considerations: NKA [facility] PATIENT NAME: EMPERATRIZ GHOSH [address] [place] MEDICAL REC #: [id number] [place] [address] ADMIT DATE: SERVICE DATE: 12/12/21 Physical Therapy Evaluation ATTENDING AZALIA: Fatoumata Lyn DO Rehabilitation Precautions/Restrictions: General Spine Precautions SUBJECTIVE Premorbid Functional Level: The patient reported the premorbid leve (more content not included)...[facility] [place] [facility] No data available for this section [facility] Evaluation + Plan note Future Appointments Appointment Date:07/25/2023 10:00:00 AM Scheduled Provider: [facility] Appointment Type:CT Chest w/o Contrast Future Scheduled Tests Radiology* CT Thorax w/o Contrast 07/25/23 [facility] evaluibhtd note* Diagnosis Intervertebral disc disorder with radiculopathy of lumbar region Thoracic or lumbosacral neuritis or radiculitis, unspecified DDD (degenerative disc disease), lumbar Degeneration of lumbar or lumbosacral intervertebral disc documented in this encounter [facility] note* Diagnosis Chronic pain syndrome- Primary documented in this encounter [facility] note* Diagnosis Chronic pain syndrome- Primary Myalgia Mylagia and myositis, unspecified Acute arthropathy Arthropathy, unspecified, site unspecified Radiculitis, thoracic Thoracic or lumbosacral neuritis or radiculitis, unspecified [facility] [place] [facility]* Diagnosis Chronic pain syndrome- Primary Lumbar radiculopathy Thoracic or lumbosacral neuritis or radiculitis, unspecified DDD (degenerative disc disease), lumbar Degeneration of lumbar or lumbosacral intervertebral disc documented in this encounter [facility] note* Diagnosis Chronic pain syndrome documented in this encounter [facility] note* Diagnosis Chronic pain syndrome documented in this encounter [facility] note* Diagnosis Dyspnea on exertion Other dyspnea and respiratory abnormality documented in this encounter [facility] note* Diagnosis Dyspnea on exertion Other dyspnea and respiratory abnormality documented in this encounter [facility] note* Diagnosis Lumbar postlaminectomy syndrome- Primary Postlaminectomy syndrome, lumbar region documented in this encounter [facility] note* Diagnosis Obstructive sleep apnea- Primary Obstructive sleep apnea (adult) (pediatric) Lumbar postlaminectomy syndrome Postlaminectomy syndrome, lumbar region documented in this encounter [facility] note* Diagnosis Chronic pain syndrome Lumbar postlaminectomy syndrome Postlaminectomy syndrome, lumbar region documented in this encounter [facility] note* Diagnosis High risk medication use- Primary Encounter for long-term (current) use of other medications Lumbar postlaminectomy syndrome Postlaminectomy syndrome, lumbar region documented in this encounter [facility] note* Diagnosis Lumbar postlaminectomy syndrome- Primary [...] syndrome, lumbar region documented in this encounter [facility] note* Diagnosis Lumbar postlaminectomy syndrome [M96.1 [...] infusion pump present [facility] [place] [facility] Diagnosis Lumbar postlaminectomy syndrome Postlaminectomy syndrome, lumbar region documented [facility] [place] [facility]* Diagnosis Lumbar postlaminectomy [...] Chronic pain syndrome documented in this encounter [facility] note* Diagnosis Lumbar postlaminectomy syndrome Postlaminectomy [...] or radiculitis, unspecified [facility] [place] [facility]* Diagnosis Lumbar postlaminectomy syndrome Postlaminectomy syndrome, lumbar region documented in this encounter [facility] note* Diagnosis Lumbar postlaminectomy syndrome- Primary [...] (HCC) Morbid obesity documented in this encounter [facility] note* Diagnosis Lumbar postlaminectomy syndrome Postlaminectomy syndrome, lumbar region documented in this encounter [facility] note* Diagnosis Lumbar postlaminectomy syndrome- Primary [...] and myositis, unspecified documented in this encounter [facility] note* Diagnosis Lumbar postlaminectomy syndrome Postlaminectomy syndrome, lumbar region documented in this encounter [facility] note* Diagnosis Lumbar postlaminectomy syndrome- Primary [...] and myositis, unspecified documented in this encounter [facility] note* Diagnosis Lumbar postlaminectomy syndrome- Primary [...] or radiculitis, unspecified [facility] [...] malaise and fatigue [facility] [place] [facility]* Diagnosis Lumbar postlaminectomy syndrome Postlaminectomy syndrome, lumbar region documented [facility] [place] [facility]* Diagnosis Lumbar postlaminectomy syndrome Postlaminectomy syndrome, lumbar region [facility] [place] [facility]* Diagnosis Decreased range of motion of left knee- Primary Presence of left artificial knee joint Knee joint replacement by other means Weakness Other malaise and fatigue [facility] [place] [facility]* Diagnosis Implantable intrathecal infusion pump present- Primary Other chronic pain Diffuse myofascial pain syndrome Mylagia and myositis, unspecified [facility] [place] [facility]* Diagnosis Lumbar postlaminectomy syndrome- Primary Postlaminectomy syndrome, lumbar region Lumbar spondylosis Lumbosacral spondylosis without myelopathy Sacroiliitis ([facility]) Sacroiliitis, not elsewhere classified Lumbar radiculopathy Thoracic or lumbosacral neuritis or radiculitis, unspecified Radiculitis, thoracic Thoracic or lumbosacral neuritis or radiculitis, unspecified Myofascial pain syndrome Mylagia and myositis, unspecified Carpal tunnel syndrome, bilateral Carpal tunnel syndrome Implantable intrathecal infusion pump present [facility] [place] [facility]* Diagnosis Decreased range of motion of left knee- Primary Presence of left artificial knee joint Knee joint replacement by other means Weakness Other malaise and fatigue [facility] [place] [facility]* Diagnosis Decreased range of motion of left knee- Primary Presence of left artificial knee joint Knee joint replacement by other means Weakness Other malaise and fatigue documented [facility] [place] [facility]* Diagnosis Lumbar postlaminectomy syndrome Postlaminectomy syndrome, lumbar region documented [facility] [place] [facility]* Diagnosis Coronary artery calcification seen on CT scan- Primary Dyspnea, unspecified type Hypercholesterolemia Pure hypercholesterolemia Primary hypertension Unspecified essential hypertension BMI 40.0-44.9, adult ([facility]) Body Mass Index 40.0-44.9, adult Encounter for screening for cardiovascular disorders Screening for other and unspecified cardiovascular conditions documented [facility] this [facility] [place] [facility]* Diagnosis Hypercholesterolemia- Primary Pure hypercholesterolemia Coronary artery disease involving [place] coronary artery of [place] heart without angina pectoris Chest discomfort Other chest pain Abnormal stress test Other nonspecific abnormal cardiovascular system function study documented in this encounter [facility] note* Diagnosis Coronary artery calcification seen on CT scan Dyspnea, unspecified type Chest discomfort Other chest pain Abnormal stress test Other nonspecific abnormal cardiovascular system function study documented in this encounter [facility] noteNo assessment information availableVencor Hospital Work Phone: Hospital Discharge instructions No data available for this section [facility] Progress note No data available for this section [facility] Prolqzqh note Author Jose Juan Springer [facility] Note Date/Time May 13, 2025 12:05pm [facility] [address] [place] [address] OFFICE VISIT Date of Service: 05/13/25 MR#: [id number] Acct: [id number] Name: EMPERATRIZ GHOSH EDWARD Rep #: [id number] : 1950 Provider: Dr. Live Springer MD Age/Sex: 74/F Location: [facility] Status: Signed Intake Vital Signs 02/25/25 14:46 05/13/25 11:00 Height 5 ft 5 ft Weight: 226 lb 226 lb BMI 44.1 44.1 Intake Visit Reasons: spine Chief Complaint: lumbar spine pre op Accompanied by: Self Is patient in pain?: Yes Pain scale (1-10): 5 Allergies No Known Allergies Allergy (Verified 05/13/25 11:03) Medications ?Medication ?Instructions ?Recorded ?Confirmed ?Type PAIN PUMP (INFORMATIONAL USE 02/25/25 05/13/25 His tory ONLY-PATIENT HAS MORPHINE PUMP) ascorbic acid (vitamin C) 500 mg 500 mg PO DAILY 02/2505/13/25 History capsule aspirin 81 mg tablet 81 mg PO QDAY 02/25/2505/13 History brimonidine 0.2 % eye drops 1 drp ophthalmic (eye) BID 02/25/25 05/13/25 History duloxetine 60 mg capsule,delayed 60 mg PO QHS 02/25/25 05/13/25 History release famotidine 20 mg tablet 40 mg PO QHS 02/25/25 History ferrous sulfate 325 mg (65 mg 325 mg PO QDAY 02/25/25 05/13/25 History iron) tablet (FeroSul) gabapentin 800 mg tablet 800 mg PO TID 02/25/2505/13 History latanoprost 0.005 % eye drops 1 drp ophthalmic (eye) Q PM 02/25/25 05/13/25 History lidocaine-prilocaine 2.5 %-2.5 % 1 applic topical TID PRN pain 02/25/25 05/13/25 History topical cream lisinopril 20 1 tab PO QDAY 02/25/2505/13 History mg-hydrochlorothiazide 25 mg tablet omeprazole 40 mg capsule,delayed 40 mg PO QDAY 5 05/13/25 History release simvastatin 20 mg tablet 20 mg PO QHS 02/25/25 History tolterodine 4 mg capsule,extended 4 mg PO QDAY 5 05/13/25 History release 24 hr calcium carbonate 1,200 mg PO DAILY 05/12/25 0 05/13/25 History cholecalciferol (vitamin D3) 50 50 mcg PO DAILY 05/13/25 History mcg (2,000 unit) capsule (Vitamin D3) folic acid 800 mcg tablet 0.8 mg PO DAILY 05/12/25 History lactobacillus combination no.4 3 3,000 mmu cells PO DA SONYA 05/12/25 05/13/25 History billion cell capsule (Probiotic) multivitamin (Daily Multi-Vitamin 1 tab PO DAILY 05/1205/13/25 History tablet) zinc gluconate 50 mg tablet 50 mg PO DAILY 05/12/25 History Have you fallen in the past year?: No PFSH Medical History Glaucoma Loss of hearing Wears glasses Post-menopausal Ambulates with cane Arthritis Easy bruising Back pain History of hiatal hernia History of diverticulitis Shortness of breath on exertion Non-smoker History of pain when walking Cardiology follow-up encounter History of stress test History of irregular heartbeat Chest pain Morbid obesity Bladder prolapse GERD (gastroesophageal reflux disease) Hyperlipemia Hypertension Surgical History History of cardiac catheterization Hx of bladder repair surgery History of esophagogastroduodenoscopy (EGD) Hx of colonoscopy Hx of total hip arthroplasty Hx of tonsillectomy H/O: hysterectomy History of hip replacement H/O spinal fusion H/O carpal tunnel repair History of knee replacement Social History Smoking Status: Never smoker HPI spine Details: This documentation accurately reflects the service provided and the decisions made by me, Dr. Jose Juan Springer MD 05/13/25 1058. Part of today?s visit was documented by Kylee Grijalva MA, acting as scribe. EMPERATRIZ GHOSH is a 74 year old F here today for lumbar spine pre op. Patient states that her pain is a 5 today. She states that she hasn't had any injections in her lower back. Patient states that she did try physical therapy in the past. She states that the physical therapy didn't help. Patient states that she would like to know what she can and can't do after surgery. She would like to know how long she would be at the hospital for. The patient is a 74-year-old female presenting with chronic back pain management. She has a history of multiple spinal surgeries, which have resulted in significant scarring and chronic pain. The current plan involves a spinal cord stimulator trial to assess pain relief before proceeding with a permanent implant. The procedure involves a thoracic laminectomy to place the paddle lead, due to previous scarring preventing a percutaneous approach. The trial will determine if there is sufficient pain relief to justify the second stage of the procedure,which involves permanent implantation of the stimulator. The patient has been informed about the risks associated with the procedure, including infection and hematoma, especially given the two-stage nature of the surgery. She is not on blood thinners and does not have diabetes, which are favorable factors for her surgical outcome. - Musculoskeletal: Reports chronic back pain. Denies new symptoms. - Endocrine: Denies diabetes. - Hematologic: Denies use of blood thinners. Attestation: Documentation on this patient encounter was supported using ambient scribe technology/ voice AI technology. The patient consented to recording for the purpose of documenting the encounter. Provider reviewed content of the generatednote prior to signature. 04/22/25: EMPERATRIZ GHOSH is a 74 year old F here today for MRI review of the lumbar spine. Patient denies any changes to her symptoms. The pain is all inthe low back it does not extend down into her legs. The left lower back is the most painful. Dr. Chase was not able to place the spinal cord stimulator due to scar tissue. She does not have diabetes. She denies heart or lung problems. She was experiencing shortness of breath and had a negative cardiac and pulmonary evaluation. She states they felt the shortness of breath was GI related from a hiatal hernia and reflux. She does have a pain pump. Ortho Exam General General: Yes no acute distress Neurologic: Yes alert and Yes oriented x3 Psychologic: Yes reasonable and appropriate Spine SPINE TESTING CERVICAL THORACIC LUMBAR Musculoskeletal Strength 0=absent - 5=normal Details: midline scars from previous lumbar spinal fusion surgery Exam Narrative - Musculoskeletal: Midline and paramedian scars observed on the back, tendernessnoted more on the left side than the right side upon deep palpation. - Neurological: Strength testing in lower extremities showed good strength with toe and knee maneuvers. Coding Level of Care Code Off vis,est,level 4 Diagnoses History of lumbar fusion Z98.1 Lumbar adjacent segment disease with spondylolisthesis M51.369; M43.16 Other secondary kyphosis, thoracolumbar region M40.15 Kyphosis type: other secondary Spinal region: thoracolumbar Other secondary scoliosis, thoracolumbar region M41.55 Scoliosis type: other secondary scoliosis Spinal region: thoracolumbar Osteopenia determined by x-ray M85.80 Morbid obesity E66.01 Time Spent (min) 35 Assessment and Plan Assessment and Plan (1) History of lumbar fusion: Status: Acute (2) Lumbar adjacent segment disease with spondylolisthesis: Status: Acute (3) Kyphosis: Status: Acute Qualifiers: Kyphosis type: other secondary Spinal region: thoracolumbar Qualified Code(s): M40.15 - Other secondary kyphosis, thoracolumbar region (4) Scoliosis: Status: Acute Qualifiers: Scoliosis type: other secondary scoliosis Spinal region: thoracolumbar Qualified Code(s): M41.55 - Other secondary scoliosis, thoracolumbar region (5) Osteopenia determined by x-ray: Status: Acute (6) Morbid obesity: Status: Acute Plan Again reviewed pt's MRI in detail. - Imaging: MRI and X-rays show kyphosis abovethe fusion and instability below, with arthritic changes in the lower spine. Discussed adjacent segment degeneration above and below the fusion. Above the L1-4 fusion, there is worsening kyphosis and scoliosis with apex in the thoracolumbar junction. Below the L1-4 fusion, L4-5 shows spondylolisthesis, L5-S1 shows disc degeneration with foraminal stenosis. 1. Chronic back pain - The patient will undergo a spinal cord stimulator trial to evaluate pain relief. - If successful, a permanent implant will be considered. - The procedure involves a thoracic laminectomy due to previous scarring. - Risks include infection and hematoma, but the patient is not on blood thinnersand does not have diabetes, which are favorable factors. - Avoid heavy lifting, twisting, or bending after surgery. - Keep the surgical area clean and dry; sponge baths are recommended. - Monitor for signs of infection or increased swelling and report any concerns immediately. - Engage in light activity and change positions frequently to prevent complications. Discussed treatment options which include correcting the deformity and degeneration above and below the fusion with a multilevel extensive fusion in the thoracolumbar spine going down to the pelvis, versus treating the pain with spinal cord stimulator. At this time, patient wishes to proceed with spinal cord stimulator placement to help with the pain. We discussed that we can do a trial for the paddle lead spinal cord stimulator, this would be an open surgery.If the trail is successful then we can permanently place the stimulator as a second stage. Discussed this procedure in detail and explained the risks, benefits and alternatives. The risks of surgery include bleeding, infection, hematoma, DVT, pulmonary embolism, persistent pain. Explained in detail the procedure of the paddle lead placement. Discussed post-surgery restrictions suchas no bending, lifting, or twisting. Answered all questions to the patient?s satisfaction. Patient understands and agrees to proceed with surgery. Consent was signed. Clinical Quality Measures Falls Risk Screening/Assistive Devices Have you fallen in the past year?: No 05/14/25 1041 <Electronically signed by Jose Juan Springer MD> Date _ Jose Juan Springer MD Cosigner Signature: Date (if applicable) CC: ~ [facility] Work Phone: reason for referral (narrative)* Diagnostic Procedure Only (Routine) - Authorized Specialty Diagnoses / Procedures Referred By Contac t Referred To Contact MOLECULAR & FUNCTIONAL IMAGING Diagnoses Coronary artery calcification seen on CT scan Dyspnea, unspecified type Encounter for screening for cardiovascular disorders Procedures NM CARDIAC PERF STRESS/PHARM MYOCARDIAL SPECT MULTIPLE STUDIES Mahamed Cardona MD [address] [place] [address] Molecular & Functional Imaging [address] [place] [address] Referral ID Status Reason Start Date Expiration Date Visits Requested Visits Authorized [id number] Authorized Auto-Generat ed Referral 07/25/2025 1 1 [facility] for referral (narrative)No reason for referral information availableVencor Hospital Work Phone: reason for visit Narrative* Diagnostic Procedure Only (Routine) - Closed Specialty Diagnoses / Procedures Referred By Contac t Referred To Contact MOLECULAR & FUNCTIONAL IMAGING Diagnoses Coronary artery calcification seen on CT scan Dyspnea, unspecified type Encounter for screening for cardiovascular disorders Procedures NM CARDIAC PERF STRESS/PHARM MYOCARDIAL SPECT MULTIPLE STUDIES Mahamed Cardona MD [address] [place] [address] Molecular & Functional Imaging [address] [place] [address] Referral ID Status Reason Start Date Expiration Date V isits Requested Visits Authorized [id number] Closed Auto-Generate d Referral 07/25/2024 07/25/2025 2 2 [facility] Summary Purpose Family History No Family History Records FoundNo Family History Records Found No data available for this section No Family History Records FoundNo Family History Records FoundNo Family History Records FoundNo Family History Records Found Advance Directives No Advanced Directives Records FoundDocuments on File Type Date Recorded 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 Advance Directive(s) 02/09/2022 10:16 [...] HIGH COMPLEX 45 MINS Fatoumata Lyn, DO [address] [place] [address] [facility] [place] [facility] [place] [address] Referral ID Status Reason Start Date Expiration Date Visits Requested Visits Authorized [id number] Authorized PCP Requested Referral Auto-Generate d Referral 10/29/2022 10/29/2023 99 99 Chief Complaint and Reason for Visit Chief Complaint Admit Date LUMBAR SPINE February 25, 2025 2:43p m room 2 February 25, 2025 3:01p m Chief Complaint Admit Date LUMBAR SPINE February 25, 2025 2:43p m room 2 February 25, 2025 3:01p m chronic pain March 30, 2025 11: 21am Reason for Visit Admit Date History of lumbar fusion February 25, 2025 2:43pm Kyphosis February 25, 2025 2:43p m Lumbar adjacent segment disease with spo ndylolisthesis February 25, 2025 2:43pm Osteopenia determined by x-ray February 25, 2025 2:43pm Scoliosis February 25, 2025 2:43p m Chronic back pain February 25, 2025 2:43p m Chief Complaint Admit Date LUMBAR SPINE February 25, 2025 2:43p m room 2 February 25, 2025 3:01p m chronic pain March 30, 2025 11: 21am LUMBAR SPINE April 22, 2025 8: 57am Reason for Visit Admit Date History of lumbar fusion February 25, 2025 2:43pm Kyphosis February 25, 2025 2:43p m Lumbar adjacent segment disease with spo ndylolisthesis February 25, 2025 2:43pm Osteopenia determined by x-ray February 25, 2025 2:43pm Scoliosis February 25, 2025 2:43p m Chronic back pain February 25, 2025 2:43p m History of lumbar fusion April 22 8:57am Kyphosis April 22, 2025 8: 57am Lumbar adjacent segment disease with spo ndylolisthesis April 22, 2025 8:57am Morbid obesity April 22, 2025 8: 57am Osteopenia determined by x-ray April 222024 8:57am Scoliosis April 22, 2025 8: 57am Chief Complaint Admit Date LUMBAR SPINE February 25, 2025 2:43p m room 2 February 25, 2025 3:01p m chronic pain March 30, 2025 11: 21am LUMBAR SPINE April 22, 2025 8: 57am spine May 13, 2025 10:56am Reason for Visit Admit Date History of lumbar fusion February 25, 2025 2:43pm Kyphosis February 25, 2025 2:43p m Lumbar adjacent segment disease with spo ndylolisthesis February 25, 2025 2:43pm Osteopenia determined by x-ray February 25, 2025 2:43pm Scoliosis February 25, 2025 2:43p m Chronic back pain February 25, 2025 2:43p m History of lumbar fusion April 22 8:57am Kyphosis April 22, 2025 8: 57am Lumbar adjacent segment disease with spo ndylolisthesis April 22, 2025 8:57am Morbid obesity April 22, 2025 8: 57am Osteopenia determined by x-ray April 222024 8:57am Scoliosis April 22, 2025 8: 57am History of lumbar fusion May 13, 2025 10:56am Kyphosis May 13, 2025 10:56am Lumbar adjacent segment disease with spo ndylolisthesis May 13, 2025 10:56am Morbid obesity May 13, 2025 10:56am Osteopenia determined by x-ray May 13, 2025 10:56am Scoliosis May 13, 2025 10:56am Additional Source Comments INFORMATION SOURCE (unrecogn ized section and content) DATE CREATED AUTHOR 10/29/2020 [facility] DATE CREATED AUTHOR AUTHOR'S ORGANIZ ATION 03/15/[address] [facility] [place] DATE CREATED AUTHOR AUTHOR'S ORGANIZ ATION 02/06/2024 [facility] ([place]) DATE CREATED AUTHOR AUTHOR'S ORGANIZ ATION 06/21/2024 ENOLA MASSILLO N DATE CREATED AUTHOR AUTHOR'S ORGANIZ ATION 10/25/[address] [facility] nter DATE CREATED AUTHOR AUTHOR'S ORGANIZ ATION 05/27/2025 [facility] Source Comments (unrecognize d section and content) In the event this informatio n is protected by the Federal Confidentiality of Alcohol and Drug Abuse Patient Records regulations: The Federal rules restrict any use of the information to criminally investigate or prosecute any alcohol or drug abuse patient.[facility] CenterIn the event this information is protected by the Federal Confidentiality of Alcohol and Drug Abuse Patient Records regulations: The Federal rules restrict any use of the information to criminally investigate or prosecute any alcohol or drug abuse patient.[facility] CenterIn the event this information is protected by the Federal Confidentiality of Alcohol and Drug Abuse Patient Records regulations: The Federal rules restrict any use of the information to criminally investigate or prosecute any alcohol or drug abuse patient.[facility] CenterIn the event this information is protected by the Federal Confidentiality of Alcohol and Drug Abuse Patient Records regulations: The Federal rules restrict any use of the information to criminally investigate or prosecute any alcohol or drug abuse patient.[facility] CenterIn the event this information is protected by the Federal Confidentiality of Alcohol and Drug Abuse Patient Records regulations: The Federal rules restrict any use of the information to criminally investigate or prosecute any alcohol or drug abuse patient.[facility] CenterIn the event this information is protected by the Federal Confidentiality of Alcohol and Drug Abuse Patient Records regulations: The Federal rules restrict any use of the information to criminally investigate or prosecute any alcohol or drug abuse patient.[facility] CenterIn the event this information is protected by the Federal Confidentiality of Alcohol and Drug Abuse Patient Records regulations: The Federal rules restrict any use of the information to criminally investigate or prosecute any alcohol or drug abuse patient.[facility] CenterIn the event this information is protected by the Federal Confidentiality of Alcohol and Drug Abuse Patient Records regulations: The Federal rules restrict any use of the information to criminally investigate or prosecute any alcohol or drug abuse patient.[facility] CenterIn the event this information is protected by the Federal Confidentiality of Alcohol and Drug Abuse Patient Records regulations: The Federal rules restrict any use of the information to criminally investigate or prosecute any alcohol or drug abuse patient.[facility] CenterIn the event this information is protected by the Federal Confidentiality of Alcohol and Drug Abuse Patient Records regulations: The Federal rules restrict any use of the information to criminally investigate or prosecute any alcohol or drug abuse patient.[facility] CenterIn the event this information is protected by the Federal Confidentiality of Alcohol and Drug Abuse Patient Records regulations: The Federal rules restrict any use of the information to criminally investigate or prosecute any alcohol or drug abuse patient.[facility] CenterIn the event this information is protected by the Federal Confidentiality of Alcohol and Drug Abuse Patient Records regulations: The Federal rules restrict any use of the information to criminally investigate or prosecute any alcohol or drug abuse patient.[facility] CenterIn the event this information is protected by the Federal Confidentiality of Alcohol and Drug Abuse Patient Records regulations: The Federal rules restrict any use of the information to criminally investigate or prosecute any alcohol or drug abuse patient.[facility] CenterIn the event this information is protected by the Federal Confidentiality of Alcohol and Drug Abuse Patient Records regulations: The Federal rules restrict any use of the information to criminally investigate or prosecute any alcohol or drug abuse patient.[facility] CenterIn the event this information is protected by the Federal Confidentiality of Alcohol and Drug Abuse Patient Records regulations: The Federal rules restrict any use of the information to criminally investigate or prosecute any alcohol or drug abuse patient.[facility] CenterIn the event this information is protected by the Federal Confidentiality of Alcohol and Drug Abuse Patient Records regulations: The Federal rules restrict any use of the information to criminally investigate or prosecute any alcohol or drug abuse patient.[facility] CenterIn the event this information is protected by the Federal Confidentiality of Alcohol and Drug Abuse Patient Records regulations: The Federal rules restrict any use of the information to criminally investigate or prosecute any alcohol or drug abuse patient.[facility] CenterIn the event this information is protected by the Federal Confidentiality of Alcohol and Drug Abuse Patient Records regulations: The Federal rules restrict any use of the information to criminally investigate or prosecute any alcohol or drug abuse patient.[facility] CenterIn the event this information is protected by the Federal Confidentiality of Alcohol and Drug Abuse Patient Records regulations: The Federal rules restrict any use of the information to criminally investigate or prosecute any alcohol or drug abuse patient.[facility] CenterIn the event this information is protected by the Federal Confidentiality of Alcohol and Drug Abuse Patient Records regulations: The Federal rules restrict any use of the information to criminally investigate or prosecute any alcohol or drug abuse patient.[facility] CenterIn the event this information is protected by the Federal Confidentiality of Alcohol and Drug Abuse Patient Records regulations: The Federal rules restrict any use of the information to criminally investigate or prosecute any alcohol or drug abuse patient.[facility] CenterIn the event this information is protected by the Federal Confidentiality of Alcohol and Drug Abuse Patient Records regulations: The Federal rules restrict any use of the information to criminally investigate or prosecute any alcohol or drug abuse patient.[facility] CenterIn the event this information is protected by the Federal Confidentiality of Alcohol and Drug Abuse Patient Records regulations: The Federal rules restrict any use of the information to criminally investigate or prosecute any alcohol or drug abuse patient.[facility] CenterIn the event this information is protected by the Federal Confidentiality of Alcohol and Drug Abuse Patient Records regulations: The Federal rules restrict any use of the information to criminally investigate or prosecute any alcohol or drug abuse patient.[facility] CenterIn the event this information is protected by the Federal Confidentiality of Alcohol and Drug Abuse Patient Records regulations: The Federal rules restrict any use of the information to criminally investigate or prosecute any alcohol or drug abuse patient.[facility] CenterIn the event this information is protected by the Federal Confidentiality of Alcohol and Drug Abuse Patient Records regulations: The Federal rules restrict any use of the information to criminally investigate or prosecute any alcohol or drug abuse patient.[facility] CenterIn the event this information is protected by the Federal Confidentiality of Alcohol and Drug Abuse Patient Records regulations: The Federal rules restrict any use of the information to criminally investigate or prosecute any alcohol or drug abuse patient.[facility] CenterIn the event this information is protected by the Federal Confidentiality of Alcohol and Drug Abuse Patient Records regulations: The Federal rules restrict any use of the information to criminally investigate or prosecute any alcohol or drug abuse patient.[facility] CenterIn the event this information is protected by the Federal Confidentiality of Alcohol and Drug Abuse Patient Records regulations: The Federal rules restrict any use of the information to criminally investigate or prosecute any alcohol or drug abuse patient.[facility] CenterIn the event this information is protected by the Federal Confidentiality of Alcohol and Drug Abuse Patient Records regulations: The Federal rules restrict any use of the information to criminally investigate or prosecute any alcohol or drug abuse patient.[facility] CenterIn the event this information is protected by the Federal Confidentiality of Alcohol and Drug Abuse Patient Records regulations: The Federal rules restrict any use of the information to criminally investigate or prosecute any alcohol or drug abuse patient.[facility] CenterIn the event this information is protected by the Federal Confidentiality of Alcohol and Drug Abuse Patient Records regulations: The Federal rules restrict any use of the information to criminally investigate or prosecute any alcohol or drug abuse patient.[facility] CenterIn the event this information is protected by the Federal Confidentiality of Alcohol and Drug Abuse Patient Records regulations: The Federal rules restrict any use of the information to criminally investigate or prosecute any alcohol or drug abuse patient.[facility] CenterIn the event this information is protected by the Federal Confidentiality of Alcohol and Drug Abuse Patient Records regulations: The Federal rules restrict any use of the information to criminally investigate or prosecute any alcohol or drug abuse patient.[facility] CenterIn the event this information is protected by the Federal Confidentiality of Alcohol and Drug Abuse Patient Records regulations: The Federal rules restrict any use of the information to criminally investigate or prosecute any alcohol or drug abuse patient.[facility]In the event this information is protected by the Federal Confidentiality of Alcohol and Drug Abuse Patient Records regulations: The Federal rules restrict any use of the information to criminally investigate or prosecute any alcohol or drug abuse patient.[facility] CenterIn the event this information is protected by the Federal Confidentiality of Alcohol and Drug Abuse Patient Records regulations: The Federal rules restrict any use of the information to criminally investigate or prosecute any alcohol or drug abuse patient.[facility]In the event this information is protected by the Federal Confidentiality of Alcohol and Drug Abuse Patient Records regulations: The Federal rules restrict any use of the information to criminally investigate or prosecute any alcohol or drug abuse patient.[facility] CenterIn the event this information is protected by the Federal Confidentiality of Alcohol and Drug Abuse Patient Records regulations: The Federal rules restrict any use of the information to criminally investigate or prosecute any alcohol or drug abuse patient.[facility] CenterIn the event this information is protected by the Federal Confidentiality of Alcohol and Drug Abuse Patient Records regulations: The Federal rules restrict any use of the information to criminally investigate or prosecute any alcohol or drug abuse patient.[facility] CenterIn the event this information is protected by the Federal Confidentiality of Alcohol and Drug Abuse Patient Records regulations: The Federal rules restrict any use of the information to criminally investigate or prosecute any alcohol or drug abuse patient.[facility]In the event this information is protected by the Federal Confidentiality of Alcohol and Drug Abuse Patient Records regulations: The Federal rules restrict any use of the information to criminally investigate or prosecute any alcohol or drug abuse patient.[facility]In the event this information is protected by the Federal Confidentiality of Alcohol and Drug Abuse Patient Records regulations: The Federal rules restrict any use of the information to criminally investigate or prosecute any alcohol or drug abuse patient.[facility] CenterIn the event this information is protected by the Federal Confidentiality of Alcohol and Drug Abuse Patient Records regulations: The Federal rules restrict any use of the information to criminally investigate or prosecute any alcohol or drug abuse patient.[facility] CenterIn the event this information is protected by the Federal Confidentiality of Alcohol and Drug Abuse Patient Records regulations: The Federal rules restrict any use of the information to criminally investigate or prosecute any alcohol or drug abuse patient.[facility] CenterIn the event this information is protected by the Federal Confidentiality of Alcohol and Drug Abuse Patient Records regulations: The Federal rules restrict any use of the information to criminally investigate or prosecute any alcohol or drug abuse patient.[facility] CenterIn the event this information is protected by the Federal Confidentiality of Alcohol and Drug Abuse Patient Records regulations: The Federal rules restrict any use of the information to criminally investigate or prosecute any alcohol or drug abuse patient.[facility] CenterIn the event this information is protected by the Federal Confidentiality of Alcohol and Drug Abuse Patient Records regulations: The Federal rules restrict any use of the information to criminally investigate or prosecute any alcohol or drug abuse patient.[facility] CenterIn the event this information is protected by the Federal Confidentiality of Alcohol and Drug Abuse Patient Records regulations: The Federal rules restrict any use of the information to criminally investigate or prosecute any alcohol or drug abuse patient.[facility] CenterIn the event this information is protected by the Federal Confidentiality of Alcohol and Drug Abuse Patient Records regulations: The Federal rules restrict any use of the information to criminally investigate or prosecute any alcohol or drug abuse patient.[facility] CenterIn the event this information is protected by the Federal Confidentiality of Alcohol and Drug Abuse Patient Records regulations: The Federal rules restrict any use of the information to criminally investigate or prosecute any alcohol or drug abuse patient.[facility] CenterIn the event this information is protected by the Federal Confidentiality of Alcohol and Drug Abuse Patient Records regulations: The Federal rules restrict any use of the information to criminally investigate or prosecute any alcohol or drug abuse patient.[facility]In the event this information is protected by the Federal Confidentiality of Alcohol and Drug Abuse Patient Records regulations: The Federal rules restrict any use of the information to criminally investigate or prosecute any alcohol or drug abuse patient.[facility]In the event this information is protected by the Federal Confidentiality of Alcohol and Drug Abuse Patient Records regulations: The Federal rules restrict any use of the information to criminally investigate or prosecute any alcohol or drug abuse patient.[facility] CenterIn the event this information is protected by the Federal Confidentiality of Alcohol and Drug Abuse Patient Records regulations: The Federal rules restrict any use of the information to criminally investigate or prosecute any alcohol or drug abuse patient.[facility]In the event this information is protected by the Federal Confidentiality of Alcohol and Drug Abuse Patient Records regulations: The Federal rules restrict any use of the information to criminally investigate or prosecute any alcohol or drug abuse patient.[facility] CenterIn the event this information is protected by the Federal Confidentiality of Alcohol and Drug Abuse Patient Records regulations: The Federal rules restrict any use of the information to criminally investigate or prosecute any alcohol or drug abuse patient.[facility]In the event this information is protected by the Federal Confidentiality of Alcohol and Drug Abuse Patient Records regulations: The Federal rules restrict any use of the information to criminally investigate or prosecute any alcohol or drug abuse patient.[facility]In the event this information is protected by the Federal Confidentiality of Alcohol and Drug Abuse Patient Records regulations: The Federal rules restrict any use of the information to criminally investigate or prosecute any alcohol or drug abuse patient.[facility]In the event this information is protected by the Federal Confidentiality of Alcohol and Drug Abuse Patient Records regulations: The Federal rules restrict any use of the information to criminally investigate or prosecute any alcohol or drug abuse patient.[facility]In the event this information is protected by the Federal Confidentiality of Alcohol and Drug Abuse Patient Records regulations: The Federal rules restrict any use of the information to criminally investigate or prosecute any alcohol or drug abuse patient.[facility]In the event this information is protected by the Federal Confidentiality of Alcohol and Drug Abuse Patient Records regulations: The Federal rules restrict any use of the information to criminally investigate or prosecute any alcohol or drug abuse patient.[facility]In the event this information is protected by the Federal Confidentiality of Alcohol and Drug Abuse Patient Records regulations: The Federal rules restrict any use of the information to criminally investigate or prosecute any alcohol or drug abuse patient.[facility]In the event this information is protected by the Federal Confidentiality of Alcohol and Drug Abuse Patient Records regulations: The Federal rules restrict any use of the information to criminally investigate or prosecute any alcohol or drug abuse patient.[facility]In the event this information is protected by the Federal Confidentiality of Alcohol and Drug Abuse Patient Records regulations: The Federal rules restrict any use of the information to criminally investigate or prosecute any alcohol or drug abuse patient.[facility]In the event this information is protected by the Federal Confidentiality of Alcohol and Drug Abuse Patient Records regulations: The Federal rules restrict any use of the information to criminally investigate or prosecute any alcohol or drug abuse patient.[facility]In the event this information is protected by the Federal Confidentiality of Alcohol and Drug Abuse Patient Records regulations: The Federal rules restrict any use of the information to criminally investigate or prosecute any alcohol or drug abuse patient.[facility]In the event this information is protected by the Federal Confidentiality of Alcohol and Drug Abuse Patient Records regulations: The Federal rules restrict any use of the information to criminally investigate or prosecute any alcohol or drug abuse patient.[facility]In the event this information is protected by the Federal Confidentiality of Alcohol and Drug Abuse Patient Records regulations: The Federal rules restrict any use of the information to criminally investigate or prosecute any alcohol or drug abuse patient.[facility]In the event this information is protected by the Federal Confidentiality of Alcohol and Drug Abuse Patient Records regulations: The Federal rules restrict any use of the information to criminally investigate or prosecute any alcohol or drug abuse patient.[facility] CenterIn the event this information is protected by the Federal Confidentiality of Alcohol and Drug Abuse Patient Records regulations: The Federal rules restrict any use of the information to criminally investigate or prosecute any alcohol or drug abuse patient.[facility] CenterIn the event this information is protected by the Federal Confidentiality of Alcohol and Drug Abuse Patient Records regulations: The Federal rules restrict any use of the information to criminally investigate or prosecute any alcohol or drug abuse patient.[facility] CenterIn the event this information is protected by the Federal Confidentiality of Alcohol and Drug Abuse Patient Records regulations: The Federal rules restrict any use of the information to criminally investigate or prosecute any alcohol or drug abuse patient.[facility] CenterIn the event this information is protected by the Federal Confidentiality of Alcohol and Drug Abuse Patient Records regulations: The Federal rules restrict any use of the information to criminally investigate or prosecute any alcohol or drug abuse patient.[facility]In the event this information is protected by the Federal Confidentiality of Alcohol and Drug Abuse Patient Records regulations: The Federal rules restrict any use of the information to criminally investigate or prosecute any alcohol or drug abuse patient.[facility]In the event this information is protected by the Federal Confidentiality of Alcohol and Drug Abuse Patient Records regulations: The Federal rules restrict any use of the information to criminally investigate or prosecute any alcohol or drug abuse patient.[facility]In the event this information is protected by the Federal Confidentiality of Alcohol and Drug Abuse Patient Records regulations: The Federal rules restrict any use of the information to criminally investigate or prosecute any alcohol or drug abuse patient.[facility]In the event this information is protected by the Federal Confidentiality of Alcohol and Drug Abuse Patient Records regulations: The Federal rules restrict any use of the information to criminally investigate or prosecute any alcohol or drug abuse patient.[facility]In the event this information is protected by the Federal Confidentiality of Alcohol and Drug Abuse Patient Records regulations: The Federal rules restrict any use of the information to criminally investigate or prosecute any alcohol or drug abuse patient.[facility]In the event this information is protected by the Federal Confidentiality of Alcohol and Drug Abuse Patient Records regulations: The Federal rules restrict any use of the information to criminally investigate or prosecute any alcohol or drug abuse patient.[facility]In the event this information is protected by the Federal Confidentiality of Alcohol and Drug Abuse Patient Records regulations: The Federal rules restrict any use of the information to criminally investigate or prosecute any alcohol or drug abuse patient.[facility] CenterIn the event this information is protected by the Federal Confidentiality of Alcohol and Drug Abuse Patient Records regulations: The Federal rules restrict any use of the information to criminally investigate or prosecute any alcohol or drug abuse patient.[facility] CenterIn the event this information is protected by the Federal Confidentiality of Alcohol and Drug Abuse Patient Records regulations: The Federal rules restrict any use of the information to criminally investigate or prosecute any alcohol or drug abuse patient.[facility] CenterIn the event this information is protected by the Federal Confidentiality of Alcohol and Drug Abuse Patient Records regulations: The Federal rules restrict any use of the information to criminally investigate or prosecute any alcohol or drug abuse patient.[facility] CenterIn the event this information is protected by the Federal Confidentiality of Alcohol and Drug Abuse Patient Records regulations: The Federal rules restrict any use of the information to criminally investigate or prosecute any alcohol or drug abuse patient.[facility] CenterIn the event this information is protected by the Federal Confidentiality of Alcohol and Drug Abuse Patient Records regulations: The Federal rules restrict any use of the information to criminally investigate or prosecute any alcohol or drug abuse patient.[facility] CenterIn the event this information is protected by the Federal Confidentiality of Alcohol and Drug Abuse Patient Records regulations: The Federal rules restrict any use of the information to criminally investigate or prosecute any alcohol or drug abuse patient.[facility] CenterIn the event this information is protected by the Federal Confidentiality of Alcohol and Drug Abuse Patient Records regulations: The Federal rules restrict any use of the information to criminally investigate or prosecute any alcohol or drug abuse patient.[facility] CenterIn the event this information is protected by the Federal Confidentiality of Alcohol and Drug Abuse Patient Records regulations: The Federal rules restrict any use of the information to criminally investigate or prosecute any alcohol or drug abuse patient.[facility] CenterIn the event this information is protected by the Federal Confidentiality of Alcohol and Drug Abuse Patient Records regulations: The Federal rules restrict any use of the information to criminally investigate or prosecute any alcohol or drug abuse patient.[facility] CenterIn the event this information is protected by the Federal Confidentiality of Alcohol and Drug Abuse Patient Records regulations: The Federal rules restrict any use of the information to criminally investigate or prosecute any alcohol or drug abuse patient.[facility] CenterIn the event this information is protected by the Federal Confidentiality of Alcohol and Drug Abuse Patient Records regulations: The Federal rules restrict any use of the information to criminally investigate or prosecute any alcohol or drug abuse patient.[facility] CenterIn the event this information is protected by the Federal Confidentiality of Alcohol and Drug Abuse Patient Records regulations: The Federal rules restrict any use of the information to criminally investigate or prosecute any alcohol or drug abuse patient.[facility] CenterIn the event this information is protected by the Federal Confidentiality of Alcohol and Drug Abuse Patient Records regulations: The Federal rules restrict any use of the information to criminally investigate or prosecute any alcohol or drug abuse patient.[facility] CenterIn the event this information is protected by the Federal Confidentiality of Alcohol and Drug Abuse Patient Records regulations: The Federal rules restrict any use of the information to criminally investigate or prosecute any alcohol or drug abuse patient.[facility] CenterIn the event this information is protected by the Federal Confidentiality of Alcohol and Drug Abuse Patient Records regulations: The Federal rules restrict any use of the information to criminally investigate or prosecute any alcohol or drug abuse patient.[facility] CenterIn the event this information is protected by the Federal Confidentiality of Alcohol and Drug Abuse Patient Records regulations: The Federal rules restrict any use of the information to criminally investigate or prosecute any alcohol or drug abuse patient.[facility] CenterIn the event this information is protected by the Federal Confidentiality of Alcohol and Drug Abuse Patient Records regulations: The Federal rules restrict any use of the information to criminally investigate or prosecute any alcohol or drug abuse patient.[facility] CenterIn the event this information is protected by the Federal Confidentiality of Alcohol and Drug Abuse Patient Records regulations: The Federal rules restrict any use of the information to criminally investigate or prosecute any alcohol or drug abuse patient.[facility] CenterIn the event this information is protected by the Federal Confidentiality of Alcohol and Drug Abuse Patient Records regulations: The Federal rules restrict any use of the information to criminally investigate or prosecute any alcohol or drug abuse patient.[facility] CenterIn the event this information is protected by the Federal Confidentiality of Alcohol and Drug Abuse Patient Records regulations: The Federal rules restrict any use of the information to criminally investigate or prosecute any alcohol or drug abuse patient.[facility] CenterIn the event this information is protected by the Federal Confidentiality of Alcohol and Drug Abuse Patient Records regulations: The Federal rules restrict any use of the information to criminally investigate or prosecute any alcohol or drug abuse patient.[facility] CenterIn the event this information is protected by the Federal Confidentiality of Alcohol and Drug Abuse Patient Records regulations: The Federal rules restrict any use of the information to criminally investigate or prosecute any alcohol or drug abuse patient.[facility] CenterIn the event this information is protected by the Federal Confidentiality of Alcohol and Drug Abuse Patient Records regulations: The Federal rules restrict any use of the information to criminally investigate or prosecute any alcohol or drug abuse patient.[facility] CenterIn the event this information is protected by the Federal Confidentiality of Alcohol and Drug Abuse Patient Records regulations: The Federal rules restrict any use of the information to criminally investigate or prosecute any alcohol or drug abuse patient.[facility] CenterIn the event this information is protected by the Federal Confidentiality of Alcohol and Drug Abuse Patient Records regulations: The Federal rules restrict any use of the information to criminally investigate or prosecute any alcohol or drug abuse patient.[facility] Reason for Visit (unrecogniz ed section and content) Reason Comments PT Discharge Specialty Diagnoses / Procedures Referred By Contac t Referred To Contact PHYSICAL THERAPY Diagnoses Unilateral primary osteoarthritis, left knee Presence of left artificial knee joint Aftercare following joint replacement surgery Procedures FOLLOW-UP/REASSESSMENT Scott Valero PA-C [address] [place] [address] [facility] [place] [address] [place] [address] Referral ID Status Reason Start Date Expiration Date V isits Requested Visits Authorized [id number] Authorized 10/16/2023 08/25/2024 99 99 Reason Comments [...] EVALUATION HIGH COMPLEX 45 MINS Fatoumata Lyn, [address] [place] [address] [facility] [address] [place] [address] Referral ID Status Reason Start Date Expiration Date Visits Requested Visits Authorized [id number] Authorized PCP Requested Referral Auto-Generate d Referral 10/29/2022 10/29/2023 99 99 Reason Comments Back Pain Reason Onset Date Comments Refill Request 02/22/2022 Reason Comments Pain Reason Onset Date Comments Refill Request 05/02/2022 Reason Onset Date Comments Refill Request 06/11/2022 Reason Onset Date Comments Refill Request 06/13/2022 Reason Comments Spirometry Specialty Diagnoses / Procedures Referred By Contac t Referred To [facility] [place] Diagnoses Dyspnea on exertion Procedures SPIROMETRY - BASELINE AND POST DILATOR BRNCDILAT RSPSE SPMTRY PRE&POST-BRNCDILAT ADMN [facility] [place], Provider NON-STAFF PROVIDER Respiratory [address] [address] Referral ID Status Reason Start Date Expiration Date V isits Requested Visits Authorized [id number] Closed Auto-Generate d Referral 06/04/2022 07/04/2023 1 1 Specialty Diagnoses / Procedures Referred By Contac t Referred To [facility] [place] Diagnoses Dyspnea on exertion Procedures MAXIMAL VOLUNTARY VENTILATION MAX BREATHING CAPACITY MAXIMAL VOLUNTARY VENTJ [facility] [place], Provider NON-STAFF PROVIDER Respiratory [address] [address] Referral ID Status Reason Start Date Expiration Date V isits Requested Visits Authorized [id number] Closed Auto-Generate d Referral 06/04/2022 07/04/2023 1 1 Specialty Diagnoses / Procedures Referred By Contac t Referred To [facility] [place] Diagnoses Dyspnea on exertion Procedures LUNG DIFFUSION CAPACITY (DLCO) DIFFUSING CAPACITY [facility] [place], Provider NON-STAFF PROVIDER Respiratory [address] [address] Referral ID Status Reason Start Date Expiration Date V isits Requested Visits Authorized [id number] Closed Auto-Generate d Referral 06/04/2022 07/04/2023 1 1 Specialty Diagnoses / Procedures Referred By Contac t Referred To 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 Date Comments Refill [...] Care Teams (unrecognized sec tion and content) Painter And Decorator Relationship Specialty Start Date End Date Luda Ann DO [address] [place] [address] PCP - General Internal Medicine 02/09/22 Painter And Decorator Relationship Specialty Start Date End Date Luda Ann DO [address] [place] [address] PCP - General Internal Medicine 02/09/22 Painter And Decorator Relationship Specialty Start Date End Date Luda Ann DO [address] [place] [address] PCP - General Internal Medicine 02/09/22 Painter And Decorator Relationship Specialty Start Date End Date Luda Ann DO [address] [place] [address] PCP - General Internal Medicine 02/09/22 Painter And Decorator Relationship Specialty Start Date End Date Luda Ann, DO [address] [place] [address] PCP - General Internal Medicine 02/09/22 Painter And Decorator Relationship Specialty Start Date End Date Luda Ann DO [address] [place] [address] PCP - General Internal Medicine 02/09/22 Painter And Decorator Relationship Specialty Start Date End Date Luda Ann DO [address] [place] [address] PCP - General Internal Medicine 02/09/22 Painter And Decorator Relationship Specialty Start Date End Date Luda Ann DO [address] [place] [address] PCP - General Internal Medicine 02/09/22 Painter And Decorator Relationship Specialty Start Date End Date Luda Ann DO [address] [place] [address] PCP - General Internal Medicine 02/09/22 Painter And Decorator Relationship Specialty Start Date End Date Luda Ann DO [address] [place] [address] PCP - General Internal Medicine 02/09/22 Painter And Decorator Relationship Specialty Start Date End Date Luda Ann DO [address] [place] [address] PCP - General Internal Medicine 02/09/22 Painter And Decorator Relationship Specialty Start Date End Date Luda Ann, DO [address] [place] [address] PCP - General Internal Medicine 02/09/22 Painter And Decorator Relationship Specialty Start Date End Date Luda Ann, DO [address] [place] [address] PCP - General Internal Medicine 02/09/22 Painter And Decorator Relationship Specialty Start Date End Date Luda Ann, DO [address] [place] [address] PCP - General Internal Medicine 02/09/22 Painter And Decorator Relationship Specialty Start Date End Date Luda Ann, DO [address] [place] [address] PCP - General Internal Medicine 02/09/22 Painter And Decorator Relationship Specialty Start Date End Date Luda Ann, DO [address] [place] [address] PCP - General Internal Medicine 02/09/22 Painter And Decorator Relationship Specialty Start Date End Date Luda Ann, DO [address] [place] [address] PCP - General Internal Medicine 02/09/22 Painter And Decorator Relationship Specialty Start Date End Date Luda Ann, DO [address] [place] [address] PCP - General Internal Medicine 02/09/22 Painter And Decorator Relationship Specialty Start Date End Date Luda Ann, DO [address] [place] [address] PCP - General Internal Medicine 02/09/22 Painter And Decorator Relationship Specialty Start Date End Date Luda Ann, DO [address] [place] [address] PCP - General Internal Medicine 02/09/22 Painter And Decorator Relationship Specialty Start Date End Date Marissa Luda Jovel, DO [address] [place] [address] PCP - General Internal Medicine 02/09/22 Painter And Decorator Relationship Specialty Start Date End Date Luda Ann, DO [address] [place] [address] PCP - General Internal Medicine 02/09/22 Painter And Decorator Relationship Specialty Start Date End Date Luda Ann DO [address] [place] [address] PCP - General Internal Medicine 02/09/22 Painter And Decorator Relationship Specialty Start Date End Date Luda Ann DO [address] [place] [address] PCP - General Internal Medicine 02/09/22 Painter And Decorator Relationship Specialty Start Date End Date Luda Ann DO [address] [place] [address] PCP - General Internal Medicine 02/09/22 Painter And Decorator Relationship Specialty Start Date End Date Luda Ann DO [address] [place] [address] PCP - General Internal Medicine 02/09/22 Painter And Decorator Relationship Specialty Start Date End Date Luda Ann DO [address] [place] [address] PCP - General Internal Medicine 02/09/22 Painter And Decorator Relationship Specialty Start Date End Date Luda Ann DO [address] [place] [address] PCP - General Internal Medicine 02/09/22 Painter And Decorator Relationship Specialty Start Date End Date Luda Ann DO [address] [place] [address] PCP - General Internal Medicine 02/09/22 Painter And Decorator Relationship Specialty Start Date End Date Luda Ann DO [address] [place] [address] PCP - General Internal Medicine 02/09/22 Painter And Decorator Relationship Specialty Start Date End Date Luda Ann DO [address] [place] [address] PCP - General Internal Medicine 02/09/22 Painter And Decorator Relationship Specialty Start Date End Date Luda Ann DO [address] [place] [address] PCP - General Internal Medicine 02/09/22 Painter And Decorator Relationship Specialty Start Date End Date Luda Ann DO [address] [place] [address] PCP - General Internal Medicine 02/09/22 Painter And Decorator Relationship Specialty Start Date End Date Luda Ann DO [address] [place] [address] PCP - General Internal Medicine 02/09/22 Painter And Decorator Relationship Specialty Start Date End Date Luda Ann DO [address] [place] [address] PCP - General Internal Medicine 02/09/22 Painter And Decorator Relationship Specialty Start Date End Date Luda Ann DO [address] [place] [address] PCP - General Internal Medicine 02/09/22 Painter And Decorator Relationship Specialty Start Date End Date Luda Ann DO [address] [place] [address] PCP - General Internal Medicine 02/09/22 Painter And Decorator Relationship Specialty Start Date End Date Luda Ann DO [address] [place] [address] PCP - General Internal Medicine 02/09/22 Painter And Decorator Relationship Specialty Start Date End Date Luda Ann DO [address] [place] [address] PCP - General Internal Medicine 02/09/22 Painter And Decorator Relationship Specialty Start Date End Date Luda Ann DO [address] [place] [address] PCP - General Internal Medicine 02/09/22 Painter And Decorator Relationship Specialty Start Date End Date Luda Ann DO [address] [place] [address] PCP - General Internal Medicine 02/09/22 Painter And Decorator Relationship Specialty Start Date End Date Luda Ann DO [address] [place] [address] PCP - General Internal Medicine 02/09/22 Painter And Decorator Relationship Specialty Start Date End Date Luda Ann DO [address] [place] [address] PCP - General Internal Medicine 02/09/22 Painter And Decorator Relationship Specialty Start Date End Date Luda Ann DO [address] [place] [address] PCP - General Internal Medicine 02/09/22 Painter And Decorator Relationship Specialty Start Date End Date Luda Ann DO [address] [place] [address] PCP - General Internal Medicine 02/09/22 Painter And Decorator Relationship Specialty Start Date End Date Luda Ann DO [address] [place] [address] PCP - General Internal Medicine 02/09/22 Painter And Decorator Relationship Specialty Start Date End Date Luda Ann DO [address] [place] [address] PCP - General Internal Medicine 02/09/22 Painter And Decorator Relationship Specialty Start Date End Date Luda Ann DO [address] [place] [address] PCP - General Internal Medicine 02/09/22 Painter And Decorator Relationship Specialty Start Date End Date Luda Ann DO [address] [place] [address] PCP - General Internal Medicine 02/09/22 Painter And Decorator Relationship Specialty Start Date End Date Luda Ann DO [address] [place] [address] PCP - General Internal Medicine 02/09/22 Painter And Decorator Relationship Specialty Start Date End Date Luda Ann DO [address] [place] [address] PCP - General Internal Medicine 02/09/22 Painter And Decorator Relationship Specialty Start Date End Date Luda Ann DO [address] [place] [address] PCP - General Internal Medicine 02/09/22 Painter And Decorator Relationship Specialty Start Date End Date Marissa Luda Jovel [address] [place] [address] PCP - General Internal Medicine 02/09/22 Team [...] 2025 End: February 25, 2025 Team Status: Active Member Role/Relationship Status Dates Dr. Luda Ann DO Primary Care Provider Active Team Status: Inactive Member Role/Relationship Status Dates Dr. Jose Juan Springer MD Attending Provider Active Start: February 25, 2025 End: February 25, 2025 Team Status: Inactive Member Role/Relationship Status Dates Dr. Rodriguez Coleman MD Attending Provider Active S tart: February 25, 2025 End: February 25, 2025 Team Status: Inactive Member Role/Relationship Status Dates Dr. Jose Juan Springer MD Attending Provider Active Start: March 30, 2025 End: March 30, 2025 Dr. Jose Juan Springer MD Referring Provider Active Start: March 30, 2025 End: March 30, 2025 Dr. Luda Ann DO Primary Care Provider Active Start: March 30, 2025 End: March 30, 2025 Team Status: Inactive Member Role/Relationship Status Dates Dr. Luda Ann DO Primary Care Provider Active Start: April 22, 2025 End: April 22, 2025 Dr. Luda Ann DO Referring Provider Active Start: April 22, 2025 End: April 22, 2025 Dr. Jose Juan Springer MD Attending Provider Active Start: April 22, 2025 End: April 22, 2025 Team Status: Active Member Role/Relationship Status Dates Dr. Luda Ann DO Primary care physician Active Team Status: Inactive Member Role/Relationship Status Dates Dr. Jose Juan Springer MD Attending physician Active Start: February 25, 2025 End: February 25, 2025 Team Status: Inactive Member Role/Relationship Status Dates Dr. Rodriguez Coleman MD Attending physician Active Start: February 25, 2025 End: February 25, 2025 Team Status: Inactive Member Role/Relationship Status Dates Dr. Jose Juan Springer MD Attending physician Active Start: March 30, 2025 End: March 30, 2025 Dr. Jose Juan Springer MD Referring Provider Active Start: March 30, 2025 End: March 30, 2025 Dr. Luda Ann DO Primary care physician Active Start: March 30, 2025 End: March 30, 2025 Team Status: Inactive Member Role/Relationship Status Dates Dr. Luda Ann DO Primary care physician Active Start: April 22, 2025 End: April 22, 2025 Dr. Luda Ann DO Referring Provider Active Start: April 22, 2025 End: April 22, 2025 Dr. Jose Juan Springer MD Attending physician Active Start: April 22, 2025 End: April 22, 2025 Team Status: Inactive Member Role/Relationship Status Dates Dr. Luda Ann DO Primary care physician Active Start: May 13, 2025 End: May 13, 2025 Dr. Luda Ann DO Referring Provider Active Start: May 13, 2025 End: May 13, 2025 Dr. Jose Juan Springer MD Attending physician Active Start: May 13, 2025 End: May 13, 2025 Goals (unrecognized section and content) Goals [...] BE BASED ON THE PRIMARY CLINICAL RECORDS. [facility] [employer] [facility]. provides no warranty or guarantee of the accuracy or completeness of information in this document.
[2025-05-27] MEDS: Latanoprost 0.005% 1 Bottle 1 DRP OPHTHALMIC (23:03)
[2025-05-28 05:18] VITALS: BP 117/73; PULSE 103; RESP 16; TEMP 36.6; O2SAT 94
[2025-05-28 08:29] VITALS: BP 97/81; PULSE 103; RESP 16; TEMP 36.8; O2SAT 96
[2025-05-28] MEDS: Zinc Sulfate 50 mg zinc (220 mg) ORAL capsule PO (08:38)
--- NOTE | 2025-05-28 10:06 | CASEMGMT ---
Addendum entered by Jerrica Salter 05/28/25 12:33: Noted dc order in, RN CM into pt room, pt sitting up in chair eating lunch. Pt state she has everything I need at home. Pt denies any homegoing needs at this time and states her is on his way to pick her up. Original Note: Noted therapy evals. Pt lives with but is alone while he is at work. Pt has DME at home, including [facility]. No PT or OT recommended.
[2025-05-28 10:08] LABS: Hematocrit 35.6 % (37-47); Hemoglobin 11.7 g/dL (12.0-15.0); Immature Granulocytes Count 0.060 X10^3/uL (0.0-0.0); Mean Corp Hgb Conc 32.9 g/dL (32-36); Mean Corpuscular Volume 97.8 fL (81-99); Mean Platelet Vol. 9.1 fl (6.2-12.0); NRBC Flagged by Analyzer 0 % (0-5); Platelet Count 168 K/mm3 (150-450); RBC Distribution Width CV 12.8 % (11.6-14.6); RBC Distribution Width SD 46.0 fl (35.1-43.9); Red Blood Count 3.64 M/mm3 (4.2-5.4); White Blood Count 12.6 K/mm3 (4.4-11.0)
[2025-05-28 10:24] LABS: Anion Gap 8 (5-15); BUN 18 mg/dL (4-19); BUN/Creat Ratio 27.4 RATIO (10-20); Calcium,Total 8.1 mg/dL (7.6-11.0); Carbon Dioxide 24.2 mmol/L (21.0-32.0); Chloride 106 mmol/L (98-108); Estimated Creatinine Clearance 65.71 ml/min (50-250); Glucose 152 mg/dL (70-99); Potassium 4.3 mmol/L (3.3-5.1)
[2025-05-28] MEDS: Ensure Surgery 237 ML LIQUID PO (10:52)
[2025-05-28] MEDS: BRIMONIDINE 0.2% 5ML BOTTLE 1 DRP OPHTHALMIC (10:53)
[2025-05-28] MEDS: Tolterodine Tartrate 4 MG CAP.SA PO (10:53)
[2025-05-28 11:20] VITALS: BP 101/62; BP 109/73; BP 98/57; PULSE 97
--- NOTE | 2025-05-28 11:42 | PN_ITS ---
Subjective Subjective Patient seen and examined. She had no active complaints and had an uneventful night. Review of systems is otherwise negative. She has remained hemodynamically stable. Orthos are negative today. She was hydrated overnight, but BP has remained in the 90s systolic today. Review of systems is otherwise negative. Objective Data Objective Data Vital Signs: Vital Signs Temp Pulse Resp BP Pulse Ox O2 Del Method O2 Flow Rate 98.3 F 97 16 98/57 L 96 Room Air 4 05/28/25 08:29 05/28/25 11:20 05/28/25 08:29 05/28/25 11:20 05/28/25 08:29 05/28/25 08:35 05/26/25 14:45 Oxygen Flow Rate (L/min) 4 Oxygen Delivery Method Room Air Weight: 227 lb 1.218 oz Body Mass Index (BMI) 44.6 Intake & Output: Intake and Output for Last 24 Hours 05/26/25 05/27/25 05/28/25 23:59 23:59 23:59 Intake Total 3012 / 3012 2801.92 / 2801.92 1000 / 1000 Output Total 450 / 450 250 / 250 Balance 2562 / 2562 2551.92 / 2551.92 1000 / 1000 Lab / Micro Data 05/28/25 09:54 05/28/25 09:54 Labs: Laboratory Results - last 24 hr 05/27/25 18:40: D-Dimer Quant (PE/DVT) 0.63 H* 05/28/25 09:54: WBC 12.6 H, RBC 3.64 L, Hgb 11.7 L, Hct 35.6 L, MCV 97.8, MCH 32.1 H, MCHC 32.9, RDW Std Deviation 46.0 H, RDW Coeff of Farshad 12.8, Plt Count 168, MPV 9.1, Immature Gran % (Auto) 0.500, Neut % (Auto) 76.0 H, Lymph % (Auto) 15.4 L, [place] % (Auto) 6.8, Eos % (Auto) 1.1, Baso % (Auto) 0.2, Absolute Neuts (auto) 9.6 H, Absolute Lymphs (auto) 1.93, Nucleated RBC % 0, Sodium 139, Potassium 4.3, Chloride 106, Carbon Dioxide 24.2, Anion Gap 8, BUN 18, C reatinine 0.64 L, Estim Creat Clear Calc 65.71, Est GFR (MDRD) Non-Af 92, B UN/Creatinine Ratio 27.4 H, Glucose 152 H, Calcium 8.1 Micro: Microbiology 05/13/25 13:04 Swab (Method) Nasal Screen MRSA/MSSA - Final Physical Exam Const alert, oriented x3 and no apparent distress Constitutional Narrative: Class III obesity. General Appearance: cooperative, comfortable and well developed HEENT normocephalic, head/scalp atraumatic, hearing grossly normal bilaterally, nasal mucous membranes and turbinates normal, moist oral mucous membranes and oropharynx normal Eyes PERRL, EOMs intact bilaterally and conjunctivae normal Neck full ROM, supple and no JVD Lymph Lymphatic: no lymphedema noted Chest inspection of chest normal Resp normal respiratory effort, normal air movement, no use of accessory muscles and clear to auscultation bilaterally Cardio regular rate, regular rhythm, S1 normal heart sound, S2 normal heart sound, no murmurs and peripheral pulses 2+ throughout GI normal to inspection, nondistended, normoactive bowel sounds, soft to palpation, non-tender and non-distended Back/Spine Back/Spine Narrative: Surgical dressing noted over incision site on mid back, appears clean and dry. Extremity normal to inspection, full ROM, normal capillary refill, no clubbing, cyanosis or edema, no calf tenderness and no pedal edema General Extremity: no tenderness to palpation of joints or extremities Skin Skin Narrative: Intact dressing over mid back. No redness or tenderness. Neuro CN's II-XII intact bilaterally, moves all extremities, no focal motor deficits and no sensory deficits noted Motor Exam: strength 5/5 throughout and general weakness Psych mental status grossly normal, thought process normal and cooperative Appearance: appropriate Assessment & Plan Assessment/Plan (1) Status post laminectomy: (2) Hypotension: PLAN: Plan #Hypotension * Patient's blood pressure has been running low in the 90s systolic. Her blood pressure before surgery was in the 120s 130s systolic. * She does say her PCP told her that her blood pressure has been running on the lower side. * She does take lisinopril hydrochlorothiazide at home. * BP meds held. Patient hydrated with IV fluid normal saline at 125 cc/h for 2 bags. * Blood pressure still remains low then will consider starting on midodrine; blood pressure started to remain low even with IV fluid hydration and so patient started on midodrine 10 mg 3 times daily * In light of patient's class III obesity and recent surgery she was thought to be at a high risk for DVT. D dimer was not elevated at 0.[address] chest not done. * On midodrine 10mg tid; will dc on midodrine 10mg tid due to hypotension. * TO keep a BP log at home and follow up with her PCP for adjustment of meds as needed. * #Chronic back pain in the setting of prior L1-L4 fusion s/p T8-T10 laminectomy * Today's postop day 2. Had had a prior failed attempt at spinal cord stimulator placement. * Pain is well-controlled. * Pain management as per orthopedic surgery the primary service. * #Leukocytosis: * WBC is down to 12.6, down from 15. * This is likely reactive in light of the recent surgery. No clear evidence of infection. * Denies any urinary symptoms. * Will monitor closely. #GERD: On PPI #History of overactive bladder: On tolterodine #Class III obesity: BMI is 44.6. Complicates acute care, expected recovery and prognosis. #Hyperlipidemia: On statin #Hypertension: lisinopril and hCTZ discontinued. DVT prophylaxis: SCDs. No anticoagulation due to recent spine surgery. Disposition: patient ok for dc today from hospitalist standpoint. Lisinopril and HCTZ discontinued. Will dc on PO midodrine 10mg tid for now. Charges/Coding Visit Charges Inpatient E&M: 99040 Subs Hosp L2
[2025-05-28 13:09] VITALS: BP 108/80; PULSE 88; RESP 18; TEMP 36.6; O2SAT 97
--- NOTE | 2025-05-28 14:03 | PHA.DC_ITS ---
Pharmacy [facility] Counseling Pharmacy Service has performed discharge medication reconciliation and counseling for this patient. 1. ACETAMINOPHEN 500MG PO Q6 2. NORCO 5/325MG PO Q6H PRN PAIN 3. MELOXICAM 15MG PO DAILY 4. METHOCARBAMOL 750MG PO TID PRN MUSCLE SPASMS 5. MIDODRINE 10MG PO TIDCM 6. SENNA/DOCUSATE 2T PO BID PRN CONSTIPATION 7. STOP LISINOPRIL/HYDROCHLOROTHIAZIDE The patient's discharge medication list was reviewed for discrepancies and discrepancies were resolved. The patient was counseled on the following discharge medications and changes in medications for homegoing were reviewed. The Reason for Use, instructions for use, and potential side effects were reviewed for all new medications. The patient's questions regarding all of their medications were answered. The patient was able to verbally demonstrate an understanding of their discharge medications. Medications at Discharge Home Medications PAIN PUMP (INFORMATIONAL USE ONLY-PATIENT HAS MORPHINE PUMP) 02/25/25 ascorbic acid (vitamin C) 500 mg capsule 500 mg PO DAILY 02/25/25 aspirin 81 mg tablet 81 mg PO QDAY 02/25/25 brimonidine 0.2 % eye drops 1 drp ophthalmic (eye) BID 02/25/25 duloxetine 60 mg capsule,delayed release 60 mg PO QHS 02/25/25 famotidine 20 mg tablet 40 mg PO QHS 02/25/25 ferrous sulfate 325 mg (65 mg iron) tablet (FeroSul) 325 mg PO QDAY 02/25/25 gabapentin 800 mg tablet 800 mg PO TID 02/25/25 latanoprost 0.005 % eye drops 1 drp ophthalmic (eye) QPM 02/25/25 lidocaine-prilocaine 2.5 %-2.5 % topical cream 1 applic topical TID PRN pain 02/25/25 omeprazole 40 mg capsule,delayed release 40 mg PO QDAY 02/25/25 simvastatin 20 mg tablet 20 mg PO QHS 02/25/25 tolterodine 4 mg capsule,extended release 24 hr 4 mg PO QDAY 02/25/25 calcium carbonate 1,200 mg PO DAILY 05/12/25 cholecalciferol (vitamin D3) 50 mcg (2,000 unit) capsule (Vitamin D3) 50 mcg PO DAILY 05/12/25 folic acid 800 mcg tablet 0.8 mg PO DAILY 05/12/25 lactobacillus combination no.4 3 billion cell capsule (Probiotic) 3,000 mmu cells PO DAILY 05/12/25 multivitamin (Daily Multi-Vitamin tablet) 1 tab PO DAILY 05/12/25 zinc gluconate 50 mg tablet 50 mg PO DAILY 05/12/25 acetaminophen 500 mg tablet 500 mg PO Q6H #30 tabs 05/27/25 hydrocodone-acetaminophen 5-325mg 5mg-325mg 1 tab PO Q6H PRN pain 5 days #20 tabs 05/27/25 meloxicam 15 mg tablet 15 mg PO DAILY #30 tabs 05/27/25 methocarbamol 500 mg tablet 750 mg (1.5 x 500 mg) PO TID PRN Pain/spasms #30 tabs 05/27/25 sennosides 8.6 mg-docusate sodium 50 mg tablet (Stimulant Laxative Plus) 2 tab PO BID PRN constipation #14 tabs 05/27/25 midodrine 10 mg tablet 10 mg PO TID #90 tabs 05/28/25
--- NOTE | 2025-05-28 15:47 | PN.ORTHO_ITS ---
Subjective Subjective Post op day 2 T8-10 laminectomy and dura leak following an attempted spinal cord stimulator placement. The patient was seen at the bedside today. Patient denies any headaches. She denies any leg pain, numbness, tingling. PT/OT has seen the patient who is cleared her for home discharge. Objective Data Objective Data Vital Signs: Vital Signs Temp Pulse Resp BP Pulse Ox O2 Del Method O2 Flow Rate 98 F 88 18 108/80 97 Room Air 4 05/28/25 13:09 05/28/25 13:09 05/28/25 13:09 05/28/25 13:09 05/28/25 13:09 05/28/25 13:09 05/26/25 14:45 Oxygen Flow Rate (L/min) 4 Oxygen Delivery Method Room Air Weight: 227 lb 1.218 oz Body Mass Index (BMI) 44.6 Intake & Output: Intake and Output for Last 24 Hours 05/26/25 05/27/25 05/28/25 23:59 23:59 23:59 Intake Total 3012 / 3012 2801.92 / 2801.92 1450 / 1450 Output Total 450 / 450 250 / 250 Balance 2562 / 2562 2551.92 / 2551.92 1450 / 1450 Lab / Micro Data 05/28/25 09:54 05/28/25 09:54 Labs: Laboratory Results - last 24 hr 05/27/25 18:40: D-Dimer Quant (PE/DVT) 0.63 H* 05/28/25 09:54: WBC 12.6 H, RBC 3.64 L, Hgb 11.7 L, Hct 35.6 L, MCV 97.8, MCH 32.1 H, MCHC 32.9, RDW Std Deviation 46.0 H, RDW Coeff of Farshad 12.8, Plt Count 168, MPV 9.1, Immature Gran % (Auto) 0.500, Neut % (Auto) 76.0 H, Lymph % (Auto) 15.4 L, [place] % (Auto) 6.8, Eos % (Auto) 1.1, Baso % (Auto) 0.2, Absolute Neuts (auto) 9.6 H, Absolute Lymphs (auto) 1.93, Nucleated RBC % 0, Sodium 139, Potassium 4.3, Chloride 106, Carbon Dioxide 24.2, Anion Gap 8, BUN 18, C reatinine 0.64 L, Estim Creat Clear Calc 65.71, Est GFR (MDRD) Non-Af 92, B UN/Creatinine Ratio 27.4 H, Glucose 152 H, Calcium 8.1 Micro: Microbiology 05/13/25 13:04 Swab (Method) Nasal Screen MRSA/MSSA - Final Physical Exam Narrative Neurological examination of the lower extremity shows 5X5 power. Normal sensation across all dermatomes. Physical exam of the back shows some mild incision discharge. Const alert, oriented x3 and no apparent distress Assessment & Plan Assessment/Plan (1) Status post laminectomy: PLAN: Plan Postop day 2 T8-10 laminectomy, aborted spinal cord stimulator placement, incidental dural leak. The patient is doing well postoperatively with very minimal pain. The patient denies any headaches. The plan was to discharge home yesterday, but patient developed hypotension and was observed another day. Discussed with Dr. Sarmiento hospitalist who advised midodrine and holding blood pressure medications until follow-up with PCP, but okay to go home. Home-going meds include [place], meloxicam, methocarbamol, senna. OARRS reviewed. Reviewed restrictions of no heavy bending, lifting, twisting. Reviewed and educated on the use of the incentive spirometer. She will follow-up in the clinic in 2 weeks for suture removal. Patient is in agreement to the plan.
== END 2025-05-28 14:28 | disposition home or self-care (01) ==
LOC: SDC 15:26 → MS3 15:26
PROVIDERS: Anesthesiology; Student in an Organized Health Care Education/Training Program; Admitting Provider Orthopaedic Surgery Orthopaedic Surgery of the Spine; PCP Internal Medicine; Referring Provider Orthopaedic Surgery Orthopaedic Surgery of the Spine; Visit Provider Orthopaedic Surgery Orthopaedic Surgery of the Spine
PROC: (CPT 63655; principal; 2025-05-26 10:00)
DX: Z45.42 Encounter for adjustment and management of neurostimulator (principal); E66.813 Obesity, class 3; Z68.41 Body mass index [BMI] 40.0-44.9, adult; E78.5 Hyperlipidemia, unspecified; Z79.899 Other long term (current) drug therapy; K21.9 Gastro-esophageal reflux disease without esophagitis; G89.29 Other chronic pain; Z53.9 Procedure and treatment not carried out, unspecified reason; M43.16 Spondylolisthesis, lumbar region; I95.9 Hypotension, unspecified; I10 Essential (primary) hypertension; M41.55 Other secondary scoliosis, thoracolumbar region; Z98.1 Arthrodesis status; G97.41 Accidental puncture or laceration of dura during a procedure; Y92.234 Operating room of hospital as the place of occurrence of the external cause; Z79.82 Long term (current) use of aspirin; M51.369 Other intervertebral disc degeneration, lumbar region without mention of lumbar back pain or lower extremity pain; M40.15 Other secondary kyphosis, thoracolumbar region; M85.80 Other specified disorders of bone density and structure, unspecified site; N32.81 Overactive bladder
CPT/HCPCS: 63046; 63048; 00620; 63655; 63710; 36415; 72100; 76000; 80048; 80076; 82962; 83036; 83735; 85025; 85379; 85610; 85730; 86850; 86900; 86901; 87077; 87081; 93005; 94668; 96361; 96365; 96366; 96375; 96376; 97162; 97166; 97530; 99221; A4216; G0378; J2405; J3475